=== PATIENT | female | born 1955 | race Caucasian/White ===

== ENCOUNTER 2019-12-19 16:50 | Outpatient (CLI) | payer MEDICARE, OTHER, SELFPAY ==
--- NOTE | 2019-12-19 | XRR_ITS ---
PROCEDURE INFORMATION: Exam: XR Thoracic Spine, 3 Views Exam date and time: 12/19/2019 5:02 PM Age: 64 years old Clinical indication: Pain in thoracic spine; Additional info: Back pain, thoracic region TECHNIQUE: Imaging protocol: XR of the thoracic spine, 3 views. Other technique: AP and lateral views and a swimmer's lateral view of the thoracic spine are submitted. COMPARISON: No relevant prior studies available. FINDINGS: Vertebrae: Diffuse osteopenia. Thoracic spine vertebral body marginal osteophytes are noted at mid-lower levels. Mild C3-C4 retrolisthesis, C4-C5, C5-C6 and C6-C7 anterolisthesis (swimmer's view). Soft tissues: Unremarkable. Intraperitoneal space: Medial left upper quadrant abdominal surgical clips. Vasculature: Moderate aortic arch atherosclerotic calcification without ectasia. XR/XR thoracic spine 3V* [id number] IMPRESSION: 1. Degenerative changes as above. 2. No acute thoracic spinal bony abnormality identified. 3. Left upper quadrant abdominal postsurgical changes.
--- NOTE | 2019-12-19 | XRR_ITS ---
PROCEDURE INFORMATION: Exam: XR Lumbosacral Spine, 2 or 3 Views Exam date and time: 12/19/2019 5:02 PM Age: 64 years old Clinical indication: Low back pain; Additional info: Chronic back pain TECHNIQUE: Imaging protocol: XR of the lumbosacral spine, 3 views. Other technique: AP, lateral and spot lateral views of the lumbar spine are submitted. COMPARISON: [place] [id number] 02/26/2019 7:47 PM FINDINGS: Vertebrae: Partial L1-L2 fusion redemonstrated. Lumbar spine vertebral body marginal osteophytes are noted at multiple levels. Bilateral L4-L5 and left L5-S1 lumbar facet primary osteoarthritis. Soft tissues: Unremarkable. Vasculature: Moderate aortic and bilateral iliac artery atherosclerotic calcifications without evidence of aneurysm. XR/XR lumbar spine 2-3V* [id number] IMPRESSION: 1. Degenerative changes as above. 2. No acute lumbar spinal bony abnormality identified.
== END 2019-12-19 16:51 | disposition home or self-care (01) ==
LOC: RAD 16:52
PROVIDERS: Family Provider Electrodiagnostic Medicine; PCP Electrodiagnostic Medicine; Visit Provider Electrodiagnostic Medicine
DX: M54.6 Pain in thoracic spine (principal); G89.29 Other chronic pain; M54.5 Low back pain
CPT/HCPCS: 72072; 72100

== ENCOUNTER → 2020-06-01 12:59 | Outpatient (BNVA) | payer MEDICARE, SELFPAY | PROVIDERS: Family Provider Electrodiagnostic Medicine; PCP Electrodiagnostic Medicine; Visit Provider Nurse Practitioner Family | DX: N39.0 Urinary tract infection, site not specified (principal); Z68.34 Body mass index [BMI] 34.0-34.9, adult; F17.211 Nicotine dependence, cigarettes, in remission | CPT/HCPCS: 81000; 87077; 87086; 87184 ==

== ENCOUNTER → 2020-10-01 14:05 | Outpatient (BNVA) | payer MEDICARE, BC, SELFPAY | PROVIDERS: Family Provider Electrodiagnostic Medicine; PCP Electrodiagnostic Medicine; Visit Provider Nurse Practitioner Family | DX: N39.0 Urinary tract infection, site not specified (principal); R39.15 Urgency of urination | CPT/HCPCS: 81003; 87086 ==

== ENCOUNTER 2021-01-28 09:43 | Outpatient (CLI) | payer MEDICARE, SELFPAY ==
--- NOTE | 2021-01-28 10:00 | MM_ITS ---
WS: [id number] BILATERAL SCREENING DIGITAL MAMMOGRAM WITH CAD HISTORY: SCREENING COMPARISON: 12/26/2011 and 03/22/2009 Bilateral CC and MLO views submitted. Computer aided detection analyzed. Breast composition: The breasts are almost entirely fatty. No suspicious masses, microcalcifications or architectural distortion. Benign calcifications in each breast. MM/[place] [id number] IMPRESSION: BI-RADS: 2-Benign FOLLOW UP: 1 Year Follow-up
== END 2021-01-28 09:44 | disposition home or self-care (01) ==
LOC: RADSHAW 09:52
PROVIDERS: PCP Electrodiagnostic Medicine; Visit Provider Electrodiagnostic Medicine
DX: Z12.31 Encounter for screening mammogram for malignant neoplasm of breast (principal)
CPT/HCPCS: 77067

== ENCOUNTER → 2021-06-19 11:14 | Outpatient (BNVA) | payer MEDICARE, SELFPAY | PROVIDERS: PCP Electrodiagnostic Medicine; Visit Provider Registered Nurse Neonatal Intensive Care | DX: R39.15 Urgency of urination (principal) | CPT/HCPCS: 81000 ==

== ENCOUNTER → 2021-07-30 13:32 | Outpatient (BNVA) | payer MEDICARE, SELFPAY | PROVIDERS: PCP Family Medicine; Visit Provider Internal Medicine Cardiovascular Disease | DX: I10 Essential (primary) hypertension (principal); E78.00 Pure hypercholesterolemia, unspecified; E03.9 Hypothyroidism, unspecified; Z87.891 Personal history of nicotine dependence | CPT/HCPCS: 93005; 99214 ==

== ENCOUNTER → 2021-08-07 15:29 | Outpatient (BNVA) | payer MEDICARE, SELFPAY | PROVIDERS: PCP Family Medicine; Visit Provider Family Medicine | DX: F41.9 Anxiety disorder, unspecified (principal); E78.5 Hyperlipidemia, unspecified; I10 Essential (primary) hypertension; E11.9 Type 2 diabetes mellitus without complications; E03.9 Hypothyroidism, unspecified | CPT/HCPCS: 80053; 80061; 83036; 84443 ==

== ENCOUNTER → 2021-08-12 11:23 | Outpatient (BNVA) | payer MEDICARE, SELFPAY | PROVIDERS: PCP Family Medicine; Visit Provider Family Medicine | DX: F41.9 Anxiety disorder, unspecified (principal); F31.81 Bipolar II disorder; E78.5 Hyperlipidemia, unspecified; I10 Essential (primary) hypertension; E11.9 Type 2 diabetes mellitus without complications; E03.9 Hypothyroidism, unspecified | CPT/HCPCS: 83036; 84443; 85025 ==

== ENCOUNTER → 2021-08-26 16:33 | Outpatient (BNVA) | payer MEDICARE, SELFPAY | PROVIDERS: PCP Family Medicine; Visit Provider Family Medicine | DX: E87.1 Hypo-osmolality and hyponatremia (principal) | CPT/HCPCS: 80048 ==

== ENCOUNTER → 2021-09-26 12:11 | Outpatient (BNVA) | payer MEDICARE, SELFPAY | PROVIDERS: PCP Family Medicine; Visit Provider Family Medicine | DX: E03.9 Hypothyroidism, unspecified (principal); E87.1 Hypo-osmolality and hyponatremia | CPT/HCPCS: 80048 ==

== ENCOUNTER → 2021-11-21 14:22 | Outpatient (BNVA) | payer MEDICARE, SELFPAY | PROVIDERS: PCP Family Medicine; Visit Provider Nurse Practitioner Family | DX: N30.90 Cystitis, unspecified without hematuria (principal) | CPT/HCPCS: 81000 ==

== ENCOUNTER → 2022-01-14 14:18 | Outpatient (BNVA) | payer MEDICARE, SELFPAY | PROVIDERS: PCP Family Medicine; Visit Provider Family Medicine | DX: E03.9 Hypothyroidism, unspecified (principal); E11.9 Type 2 diabetes mellitus without complications; E78.00 Pure hypercholesterolemia, unspecified; I10 Essential (primary) hypertension | CPT/HCPCS: 80053; 80061; 83036; 84443 ==

== ENCOUNTER 2022-05-10 10:58 | Emergency (ER) | payer MEDICARE, SELFPAY ==
[2022-05-10 11:03] VITALS: BP 204/78; PULSE 66; RESP 18; TEMP 36.6; O2SAT 98; BMI 36.7
--- NOTE | 2022-05-10 11:15 | ECG_ITS ---
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 Measurements Intervals [place] Rate: 57 P: 45 [place]: 178 QRS: 24 QRSD: 92 T: 27 QT: 444 QTc: 436 Interpretive Statements SINUS BRADYCARDIA Compared to ECG 02/18/2017 23:43:51 No significant changes Electronically Signed On 05-11-2022 19:37:16 CDT by Jean Claude Crow M.D. [email or web address].[email or web address] Distributionpascagoula hospitalMMRGlobalaccess hospital [email or web address]/store/[id number]
[2022-05-10 12:56] VITALS: BP 167/61; PULSE 60; RESP 21; O2SAT 99
[2022-05-10 13:00] LABS: Glucose Point of Care 109 mg/dL (70-110)
--- NOTE | 2022-05-10 13:00 | W.ED.ARRPALP ---
HPI - Arrhythmia/Palpitations General: Chief Complaint: Arrhythmia/Palpitations Stated Complaint: high B/P Time Seen by Provider: 05/10/22 11:51 History of Present Illness: Patient presents to the ER with complaints of high blood pressure systolic being above 200, she states she gets dizzy and falls and has frequent headaches and heart fluttering's. Patient says her PCP has been adjusting her medicine she is on atenolol and clonidine daily which she has been taking. Patient says her blood pressure has been over 189 all week long. MD complaint: palpitations Duration: constant and now resolved Severity: moderate Associated symptoms: Deny anxiety, nausea or vomiting Treatments prior to arrival: other (Patient to take her atenolol and 2 doses of clonidine today before arrival) Review of Systems General: Reports: 10 or more systems reviewed and unremarkable except in HPI and below Const: Denies: fever(s), chills or body aches Eyes: Denies: change in vision or blurry vision ENMT: Denies: throat pain or odynophagia Card: Reports: palpitations and irregular heart rhythm Resp: Denies: dyspnea, productive cough, non-productive cough or wheezing GI: Denies: abdominal pain, nausea, vomiting or diarrhea : Denies: flank pain, difficulty voiding or dysuria Musc: Denies: neck pain, back pain, extremity pain or extremity swelling Skin/Breast: Denies: rash, pruritus or erythema Neuro: Denies: headache(s), numbness in extremities or weakness in extremities Psych: Denies: anxiety, depression, mood swings or panic attacks Endo: Denies: polyuria, polydipsia or tired all the time Primo/Lymph: Denies: easy bruising, easy bleeding or petechiae All/Imm: Denies: urticaria, throat swelling or tongue swelling PFSH ED PFSH: Medical History Diabetes Hypercholesterolemia Hypertension Hypothyroidism Syncope Urgency of urination Surgical History H/O gastric bypass Family History Grandmother Cancer Hyperlipidemia Hypertension Mother Hypertension CAD (coronary artery disease) unknown age of onset Denies family history of Diabetes Clotting disorder Dementia Chronic kidney disease (CKD) Suicide Anesthesia complication Bleeding disorder Lung disease Stroke Social History Smoking and tobacco status: former smoker Alcohol intake: never Marital status: Physical Exam Const: COMMON NORMALS: no acute distress, average body habitus, patient oriented x3, no limitations, healthy appearing, alert and well nourished HENMT: COMMON NORMALS: normocephalic, atraumatic and hearing grossly normal bilaterally HEAD & SCALP: normocephalic and atraumatic Eye: COMMON NORMALS: Equal, round and reactive pupils present, EOMs intact bilaterally and conjunctivae normal CONJUNCTIVA: Yes conjunctivae normal PUPIL: Yes Equal, round and reactive pupils present Neck/C-Spine: COMMON NORMALS: full ROM, no lymphadenopathy, supple, no meningeal signs, no JVD and Thyroid normal THYROID: Thyroid normal Chest: COMMONS NORMALS: normal inspection of the chest Resp: COMMON NORMALS: normal respiratory effort, No retractions, No use of accessory muscles and clear to auscultation bilaterally AUSCULTATION: clear to auscultation bilaterally Cardio: COMMON NORMALS: no JVD, regular rate, regular rhythm, S1 normal heart sound present, S2 normal heart sound present and No gallops present (Cardio) RATE: regular rate RHYTHM: regular rhythm HEART SOUNDS: S1 normal heart sound present and S2 normal heart sound present GI: COMMON NORMALS: Normal to inspection, nondistended, normoactive bowel sounds present, Soft to palpation, non-tender and No hepatosplenomegaly present PALPATION: Yes Soft to palpation and Yes No hepatosplenomegaly present : COMMON NORMALS: Yes no CVA tenderness BLADDER/KIDNEY EXAM: Yes no CVA tenderness Back/Pelvis: COMMON NORMALS: no CVA tenderness Neuro: COMMON NORMALS: patient oriented x3, CN's II-XII intact bilaterally, no focal motor deficits and no sensory deficits noted SENSORIUM/ORIENTATION: Yes alert MENINGEAL SIGNS: Yes no meningeal signs Psych: COMMON NORMALS: mental status grossly normal, Normal thought process present, cooperative, normal affect, speech normal, activity/motor behavior normal, denies hallucinations, denies homicidal ideation and denies suicidal ideation SPEECH: Yes normal speech THOUGHT PROCESS: Normal thought process present Course Vital Signs: Vital signs: Vital Signs Temperature 97.9 F 05/10/22 11:03 Pulse Rate 50 L 05/10/22 16:15 Respiratory Rate 21 H 05/10/22 12:56 Blood Pressure 173/73 05/10/22 16:15 Pulse Oximetry 97 05/10/22 16:15 Oxygen Delivery Me thod 05/10/22 12:56 MDM - Arrhythmia/Palpitations Medical Decision Making Patient arrived with complaints of palpitations and uncontrolled high blood pressure. Patient states her primary care doctor is adjusting her medicine for about the last month. Patient states she has had intermittent dizziness off-and-on for the last month also. Patient blood pressure was up and down during her ER stay. His 3 and physical was performed as well as lab review which showed no significant abnormalities. Patient was told to increase her clonidine to 2 tablets twice a day keep a blood pressure log and follow-up with her PCP in approximately 1 week for further management. Lab Data 05/10/22 12:56 05/10/22 12:56 Laboratory Results WBC 9.1 10^3/uL (4.0-10.0) 05/10/22 12:56 RBC 4.40 10^6/uL (4.1-5.3) 05/10/22 12:56 Hgb 11.9 g/dL (11.5-15.3) 05/10/22 12:56 Hct 37.5 % (37.0-47.0) 05/10/22 12:56 MCV 85.2 fl (81-99) 05/10/22 12:56 MCH 27.0 pg (28.0-34.0) L 05/10/22 12:56 MCHC 31.7 g/dL (30.0-36.0) 05/10/22 12:56 RDW 12.8 % (12.1-15.1) 05/10/22 12:56 Plt Count 357 10^3/cmm (130-400) 05/10/22 12:56 MPV 9.5 fL (7.4-10.4) 05/10/22 12:56 Neut % (Auto) 61.1 % 05/10/22 12:56 Lymph % (Auto) 27.7 % 05/10/22 12:56 [place] % (Auto) 9.5 % 05/10/22 12:56 Eos % (Auto) 1.2 % 05/10/22 12:56 Baso % (Auto) 0.3 % 05/10/22 12:56 Neut # (Auto) 5.56 10^3/uL (1.8-7.7) 05/10/22 12:56 Lymph # (Auto) 2.5 10^3/uL (0.8-4.8) 05/10/22 12:56 [place] # (Auto) 0.9 10^3/uL (0.2-0.9) 05/10/22 12:56 Eos # (Auto) 0.1 10^3/uL (0.0-0.8) 05/10/22 12:56 Baso # (Auto) 0.0 10^3/uL (0.0-0.1) 05/10/22 12:56 Nucleated RBC % (auto) 0 % 05/10/22 12:56 Nucleated RBCs # 0.0 /100WBC 05/10/22 12:56 Sodium 135 mmol/L (136-145) L 05/10/22 12:56 Potassium 4.4 mmol/L (3.5-5.1) 05/10/22 12:56 Chloride 97 mmol/L (98-107) L 05/10/22 12:56 Carbon Dioxide 26 mmol/L (22-29) 05/10/22 12:56 Anion Gap 16.4 (5-19) 05/10/22 12:56 BUN 16 mg/dL (8-23) 05/10/22 12:56 Creatinine 0.8 mg/dL (0.5-0.9) 05/10/22 12:56 GFR Calculation 72.0 mL/min (90-130) L 05/10/22 12:56 Glucose 101 mg/dL (65-115) 05/10/22 12:56 POC Glucose 109 mg/dL (70-110) 05/10/22 12:55 Calculated Osmolality 281 mOsm/kg (285-295) L 05/10/22 12:56 Calcium 9.5 mg/dL (8.5-10.5) 05/10/22 12:56 Magnesium 1.8 mg/dL (1.7-2.3) 05/10/22 12:56 Total Bilirubin 0.3 mg/dL (0.15-1.2) 05/10/22 12:56 AST 15 U/L (0-32) 05/10/22 12:56 ALT 11 U/L (0-33) 05/10/22 12:56 Alkaline Phosphatase 57 U/L (35-105) 05/10/22 12:56 Troponin T Baseline 6 ng/L (0-10) 05/10/22 12:56 Troponin T 120 Minute 6.00 ng/L (0-10) 05/10/22 15:07 Delta Troponin T 0 ABS# (0-10) 05/10/22 15:07 Total Protein 7.6 g/dL (6.6-8.7) 05/10/22 12:56 Albumin 4.1 g/dL (3.5-5.2) 05/10/22 12:56 Globulin 3.5 g/dL (1.3-4.6) 05/10/22 12:56 Urine Color Light yellow (Yellow) 05/10/22 14:00 Urine Appearance Clear (CLEAR) 05/10/22 14:00 Urine pH 7 (5-7) 05/10/22 14:00 Ur Specific [place] 1.010 (1.005-1.030) 05/10/22 14:00 Urine Protein Neg (Negative) 05/10/22 14:00 Urine Glucose (UA) Norm (Normal) 05/10/22 14:00 Urine Ketones Negative (Negative) 05/10/22 14:00 Urine Blood Neg (Negative) 05/10/22 14:00 Urine Nitrate Negative (Negative) 05/10/22 14:00 Urine Bilirubin Neg (Negative) 05/10/22 14:00 Urine Urobilinogen Norm mg/dL (Negative) 05/10/22 14:00 Ur Leukocyte Esterase Negative (Negative) 05/10/22 14:00 Urine Opiates Screen Negative ng/mL (Negative) 05/10/22 14:00 Ur Barbiturates Screen Negative ng/mL (Negative) 05/10/22 14:00 Ur Phencyclidine Scrn Negative ng/mL (Negative) 05/10/22 14:00 Ur Amphetamines Screen Negative ng/mL (Negative) 05/10/22 14:00 U Benzodiazepines Scrn Positive ng/mL (Negative) H 05/10/22 14:00 Urine Cocaine Screen Negative ng/mL (Negative) 05/10/22 14:00 U Marijuana (THC) Screen Positive ng/mL (Negative) H 05/10/22 14:00 EKG Data EKG 1: I personally reviewed and interpreted this EKG as follows: EKG interpretation date: 05/10/22 EKG interpretation time: 13:05 Interpretation: EKG performed at 05/10/2022 at 1115 showed sinus bradycardia with a rate of 57. EKG of 02/18/2017 VT interval 178 QT of [address]-T wave changes. EKG 2: I personally reviewed and interpreted this EKG as follows: EKG interpretation date: 05/10/22 EKG interpretation time: 15:54 Prior EKG tracings: available for review Interpretation: EKG performed on May 10, 2022 at 1545 showed sinus bradycardia at a ventricular rate of 51 bpm VT interval of 183 a QRS duration of 89 QT interval of 456. No ST or T wave changes noted Discharge Plan Discharge Patient Disposition: Home Clinical Impression: Heart palpitations Hypertension Qualifiers: Hypertension type: unspecified Qualified Code(s): I10 - Essential (primary) hypertension Condition: Stable Prescriptions: No Action quetiapine [Seroquel] 100 mg tablet 100 mg PO .HS calcium carbonate [Calcium 600] 600 mg calcium (1,500 mg) tablet 600 mg PO DAILY simvastatin 20 mg tablet 20 mg PO DAILY multivitamin Tablet 1 tab PO DAILY omega 7-mzw-npn-fish oil [Fish Oil] 1,000 mg (120 mg-180 mg) capsule 1 cap PO DAILY nebivolol 20 mg tablet 20 mg PO DAILY Qty: 60 11RF lisinopril 20 mg tablet 30 mg PO BID Qty: 270 3RF cetirizine [Zyrtec] 10 mg tablet 10 mg PO DAILY PRN (Reason: allergy symptoms) Qty: 30 11RF fluticasone propionate 50 mcg/actuation spray,suspension 2 spray intranasal DAILY Qty: 16 11RF levothyroxine 25 mcg tablet 25 mcg PO DAILY Qty: 90 3RF alprazolam 1 mg tablet 1 mg PO TID Qty: 90 3RF clonidine HCl 0.1 mg tablet 0.1 mg PO BID PRN (Reason: hypertensive emergency) Qty: 60 11RF Discharge Orders: Discharge ED (Routine); Ordered 05/10/22 Ordered By: Wyatt Ragsdale Referrals: Obey Rose MD [Primary Care Provider] - 1 week Discharge Activity: Resume usual activity Activity Restrictions/Additional Instructions: Keep blood pressure log, double up on your clonidine take 2 tablets of the 0.1 mg twice a day as needed for blood pressure follow-up with your PCP in approximately 1 week Coding Level of Care Code ED 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
--- NOTE | 2022-05-10 13:00 | PC.NURSE ---
pt c/o dizziness, headache, and severe thirst. denies hx diabetes. blood glucose checked at bedside, 109.
--- NOTE | 2022-05-10 13:07 | ECG_ITS ---
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 Measurements Intervals [place] Rate: 52 P: 54 AR: 180 QRS: 57 QRSD: 90 T: 45 QT: 469 QTc: 438 Interpretive Statements SINUS BRADYCARDIA Compared to ECG 05/10/2022 11:15:32 No significant changes Electronically Signed On 05-11-2022 19:37:47 CDT by Jean Claude Crow M.D. [email or web address].[email or web address] comprehensive health centerDroneDeploymercy health st. rita's medical [email or web address].com/store/[id number]
[2022-05-10 13:20] LABS: Basophils % 0.3 %; Eosinophils # 0.1 10^3/uL (0.0-0.8); Eosinophils % 1.2 %; Hematocrit 37.5 % (37.0-47.0); Hemoglobin 11.9 g/dL (11.5-15.3); Lymphocytes # 2.5 10^3/uL (0.8-4.8); Lymphocytes % 27.7 %; Mean Corpuscular HGB Conc 31.7 g/dL (30.0-36.0); Mean Corpuscular Volume 85.2 fl (81-99); Mean Platelet Volume 9.5 fL (7.4-10.4); Monocytes # 0.9 10^3/uL (0.2-0.9); Monocytes % 9.5 %; Neutrophils # 5.56 10^3/uL (1.8-7.7); Neutrophils % 61.1 %; Nucleated Red Blood Cells % 0 %; Platelet Count 357 10^3/cmm (130-400); Red Cell Distribution Width 12.8 % (12.1-15.1); White Blood Count 9.1 10^3/uL (4.0-10.0)
[2022-05-10 14:11] LABS: Alanine Aminotransferase 11 U/L (0-33); Albumin Level 4.1 g/dL (3.5-5.2); Alkaline Phosphatase 57 U/L (35-105); Anion Gap 16.4 (5-19); Aspartate Amino Transferase 15 U/L (0-32); Blood Urea Nitrogen 16 mg/dL (8-23); Calcium 9.5 mg/dL (8.5-10.5); Carbon Dioxide 26 mmol/L (22-29); Chloride 97 mmol/L (98-107); Globulin 3.5 g/dL (1.3-4.6); Glucose 101 mg/dL (65-115); Magnesium 1.8 mg/dL (1.7-2.3); Osmolality Calculated 281 mOsm/kg (285-295); Potassium 4.4 mmol/L (3.5-5.1); Sodium 135 mmol/L (136-145); Total Bilirubin 0.3 mg/dL (0.15-1.2); Total Protein 7.6 g/dL (6.6-8.7)
[2022-05-10 14:12] LABS: Troponin(5th) Baseline 6 ng/L (0-10)
[2022-05-10 14:29] LABS: Add Urine Microscopic? NO; Charge for UA Resulting for Rev
[2022-05-10 14:37] LABS: Urine Color Light yellow (Yellow)
[2022-05-10 14:38] LABS: Bilirubin Urine Neg (Negative); Blood Urine Neg (Negative); Glucose Urine UA Norm (Normal); Ketones Urine Negative (Negative); Leukocyte Esterase Urine Negative (Negative); Nitrate Urine Negative (Negative); Protein Urine Neg (Negative); Urine Appearance Clear (CLEAR); Urobilinogen Urine Norm (Negative); pH Urine 7 (5-7)
[2022-05-10 14:45] VITALS: BP 168/63; PULSE 52; O2SAT 97
[2022-05-10 14:45] LABS: Amphetamines Screen Urine Negative (Negative); Barbiturates Screen Urine Negative (Negative); Benzodiazepines Screen Urine Positive (Negative); Cocaine Screen Urine Negative (Negative); Opiate Screen Urine Negative (Negative); PCP Screen Urine Negative (Negative); THC Screen Urine Positive (Negative)
[2022-05-10 15:06] VITALS: BP 170/68
--- NOTE | 2022-05-10 15:45 | ECG_ITS ---
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 Measurements Intervals [place] Rate: 51 P: 32 [place]: 183 QRS: 24 QRSD: 89 T: 25 QT: 456 QTc: 424 Interpretive Statements SINUS BRADYCARDIA Compared to ECG 05/10/2022 13:21:22 No significant changes Electronically Signed On 05-11-2022 23:19:23 CDT by Jean Claude Crow M.D. [email or web address] [employer].Art Loftmethodist olive branch hospitalStayfilmnewark hospitalFundrise/store/[id number]
[2022-05-10 16:14] LABS: Troponin 5 2HR Delta 0 ABS# (0-10)
[2022-05-10 16:15] VITALS: BP 173/73; PULSE 50; O2SAT 97
== END 2022-05-10 16:17 | disposition home or self-care (01) ==
PROVIDERS: Emergency Provider Emergency Medicine; PCP Family Medicine
DX: R00.2 Palpitations (principal); I10 Essential (primary) hypertension; E11.9 Type 2 diabetes mellitus without complications; E03.9 Hypothyroidism, unspecified; E78.00 Pure hypercholesterolemia, unspecified; Z87.891 Personal history of nicotine dependence
CPT/HCPCS: 36415; 36416; 80053; 80306; 81003; 82962; 83735; 84484; 85025; 93005; 99284

== ENCOUNTER → 2022-09-08 15:28 | Outpatient (BNVA) | payer MEDICARE, SELFPAY | PROVIDERS: PCP Family Medicine; Visit Provider Dermatology | DX: L82.1 Other seborrheic keratosis (principal) | CPT/HCPCS: 17000; 17003; 99213 ==

== ENCOUNTER → 2022-10-07 15:17 | Outpatient (BNVA) | payer MEDICARE, SELFPAY | PROVIDERS: PCP Family Medicine; Visit Provider Internal Medicine Cardiovascular Disease | DX: I10 Essential (primary) hypertension (principal); R06.02 Shortness of breath; E03.9 Hypothyroidism, unspecified; E78.00 Pure hypercholesterolemia, unspecified; I49.1 Atrial premature depolarization; R01.1 Cardiac murmur, unspecified; Z87.891 Personal history of nicotine dependence | CPT/HCPCS: 36415; 80048; 83880; 99214 ==

== ENCOUNTER 2022-10-17 07:56 | Outpatient (CLI) | payer MEDICARE, SELFPAY ==
--- NOTE | 2022-10-17 08:30 | USCV_ITS ---
Aj Trish Age: 66 Gender: F : 1955 Exam Date: 10/17/2022 08:16 Ordering Phys: Jean Claude Crow MD ([email or web address]) Technologist: Rodriguez Brian [place] [facility] [place]: HTN Aortic Velocity @ SMA (cm/s) 100 RIGHT KIDNEY LEFT KIDNEY Velocity (cm/s) Velocity (cm/s) Sys/Ledbetter Sys/Ledbetter Resistive Index Resistive Index 72.9 / 8.5 0.88 Proximal Renal Artery 31.7 / 11.8 0.63 202.4 / 31.9 0.84 Mid Renal Artery 98.5 / 21.4 0.78 138.6 / 13.9 0.90 Distal Renal Artery 67.1 / 17.3 0.74 61.1 / 18.8 0.69 Hilar 39.4 / 8.5 0.78 51.7 / 8.7 0.83 Upper Pole 21.7 / 5.3 0.76 42.4 / 11.8 0.72 Mid Pole 26.7 / 7.1 0.73 53.7 / 11.3 0.79 Lower Pole 15.6 / 4.9 0.68 2.00 Renal Aortic Ratio 0.98 Accleration Index (cm/sec2) 1321.0 Hilar 668.00 0 2018.0 Upper Pole 179.00 0 538.00 Mid Pole 400.00 766.00 Lower Pole 274.00 121.5 Kidney Length (mm) 102.8 CONCLUSIONS No hydronephrosis in either kidney Increased PSV mid right renal artery suspicious for mild stenosis at the lower end of the range. Right RAR 2.00 concordant. No other evidence of Renal artery stenosis bilaterally Anuj Das MD (Electronically Signed) Final Date: 17 October 2022 12:50 S
--- NOTE | 2022-10-17 09:15 | USCV_ITS ---
Trish Rocha Age: 66 Gender: F : 1955 Exam Date: 10/17/2022 08:48 Ordering Phys: Jean Claude Crow MD ([email or web address]) Technologist: Rodriguez Brian Exam Location: [facility] – [place] Indication: heart murmur BP: 136 / 66 HR: 67 Rhythm: Sinus Technical Quality: Adequate MEASUREMENTS (Male / Female) Normal Values 2D ECHO LVOT Diameter 2.0 cm LV Ejection Fraction MOD 2C 64.8 % LV Ejection Fraction 2C AL 64.1 % LA Diameter 3.6 cm LA Width 3.0 cm LA Height 5.0 cm RA Width 3.1 cm RA Height 4.2 cm Aorta at Sinotubular Diameter 1.9 cm IVC Diameter 1.4 cm M-MODE Aortic Annulus Diameter 2.4 cm LA Ao Ratio MM 1.6 MV E Point Septal Separation 0.4 cm DOPPLER AV Peak Velocity 180.0 cm/s LVOT Peak Velocity 118.0 cm/s AV Area Cont Eq vti 1.9 cm squared AV Area Cont Eq pk 2.1 cm squared MV Peak Velocity 160.0 cm/s MV Area PHT 5.0 cm squared Mitral E to A Ratio 1.2 MV E' Velocity 66.5 cm/s Mitral E to MV E' Ratio 14.9 Mitral E to LV E' Lateral Ratio 16.0 Mitral E to LV E' Septal Ratio 13.9 TR Peak Velocity 325.4 cm/s TR Peak Gradient 42.4 mmHg TR Mean Velocity 255.6 cm/s TR Mean Gradient 29.5 mmHg TR Velocity Time Integral 95.3 cm Right Atrial Pressure 3.0 mmHg Pulmonary Artery Systolic Pressu 45.4 mmHg PV Peak Velocity 103.0 cm/s RV Acceleration Time 0.1 s RV Ejection Time 0.3 s RV AcT/ET 0.4 FINDINGS Left Ventricle Normal left ventricular size and systolic function, EF 69 %. No regional wall motion abnormalities. Grade III/IV diastolic dysfunction (restrictive filling pattern), severely elevated filling pressures. Right Ventricle The right ventricle is normal in size and function. Right Atrium The right atrium is normal in size. Left Atrium Mildly increased left atrial size. Mitral Valve Thickened mitral valve. Moderate mitral annular calcification. Mild-moderate mitral valve regurgitation. Aortic Valve Thickened aortic valve. Tricuspid Valve Mild tricuspid valve regurgitation. Estimated pulmonary artery peak systolic pressure 45 mmHg Pulmonic Valve Pulmonic valve not well visualized. Pericardium Normal pericardium without effusion. Aorta Normal ascending aorta dimension. IVC The inferior vena cava appears normal. CONCLUSIONS Normal left ventricular size and systolic function, EF 69 %. No regional wall motion abnormalities. Grade III/IV diastolic dysfunction (restrictive filling pattern), severely elevated filling pressures. Thickened mitral valve. Moderate mitral annular calcification. Mild-moderate mitral valve regurgitation. Mildly increased left atrial size. Thickened aortic valve. Features of aortic valve sclerosis Mild tricuspid valve regurgitation. Estimated pulmonary artery peak systolic pressure 45 mmHg. There is no pericardial effusion. There are no intracardiac masses. Compared to the study from 02/19/2017, there may not be a significant change Dr Jean Claude Crow MD [facility] (Electronically Signed) Final Date: 21 October 2022 08:33 S
== END 2022-10-17 07:57 | disposition home or self-care (01) ==
PROVIDERS: PCP Family Medicine; Visit Provider Internal Medicine Cardiovascular Disease
DX: I10 Essential (primary) hypertension (principal); R01.1 Cardiac murmur, unspecified; I05.9 Rheumatic mitral valve disease, unspecified; I35.8 Other nonrheumatic aortic valve disorders; I07.1 Rheumatic tricuspid insufficiency; R93.421 Abnormal radiologic findings on diagnostic imaging of right kidney
CPT/HCPCS: 93306; 93975

== ENCOUNTER → 2022-10-27 13:01 | Outpatient (BNVA) | payer MEDICARE, SELFPAY | PROVIDERS: PCP Family Medicine; Visit Provider Family Medicine | DX: R30.0 Dysuria (principal); N39.0 Urinary tract infection, site not specified | CPT/HCPCS: 81000; 87086 ==

== ENCOUNTER 2022-11-05 09:21 | Outpatient (CLI) | payer MEDICARE, SELFPAY ==
[2022-11-05 09:40] VITALS: BMI 33.6
--- NOTE | 2022-11-05 09:41 | ECG_ITS ---
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 Interpretive Statements NAME OF STUDY: LEXISCAN SESTAMIBI STRESS TEST INDICATION: Sob PROCEDURE: At the baseline, the EKG revealed normal sinus rhythm with a normal ST Ts. The baseline heart was bpm with a blood pressue of mm of Hg Lexiscan was infused over a period of 20 seconds. A total of 0.4 milligrams of Lexiscan was infused. The stress phase was continued for a total of 5 minutes. Heart rate at the end of the stress phase was 93 bpm with a blood pressure 121/41 mm of Hg. The EKG at the peak infusion revealed no significant changes. Sestamibi was injected 20 seconds after the Lexiscan infusion. Heart rate at the end of the recovery phase was 89 bpm with a blood pressure of 128/40 mm of Hg. CONCLUSION: 1. No significant EKG changes with the LexiScan infusion 2. No LexiScan induced chest pain or cardiac arrhythmia 3. Normal blood pressure and heart rate response to Lexiscan infusion. 4. Sestamibi/sestamibi perfusion scan pending; see separate report. Electronically Signed On 11-07-2022 10:11:51 CDT by Jean Claude Crow M.D. [email or web address]ishing.ND Acquisitions/store/[id number]
--- NOTE | 2022-11-05 09:42 | NMCV_ITS ---
NM hieu perf SPECT r/s* [id number] Trish Rocha Age: 66 Gender: F : 1955 Exam Date: 11/05/2022 10:40 Ordering Phys: Jean Claude Crow MD ([email or web address]) Technologist: NAINA Abrams Exam Location: [facility] Indications: CHEST PAIN STRESS TEST Please see separate stress test [facility] in [facility] for full findings IMAGE PROTOCOL Rest/Stress 1 Lexiscan Day Radiopharmaceutical Dose (mCi) Administration Site Administered by Rest: Tc-99m 10.8 IV NAINA Lozada Sestamibi Stress:Tc-99m 32.5 IV NAINA Lozada Sestamibi Rest: 05-Nov-2022 60 Discovery 630 Stress: 05-Nov-2022 30 Discovery 630 0.4mg Lexiscan. Images obtained in supine and prone position. SPECT RESULTS Technical Quality: Excellent Raw Data Analysis: Normal Image Corrections: No attenuation or motion correction applied Summed Stress Score: 4 Summed Rest Score: 1 Summed Difference Score: 3 PERFUSION FINDINGS A small area of slightly decreased tracer uptake was noted in the mid inferolateral, apical lateral and apical inferior wall region. Some reversibility was noted in these regions FUNCTIONAL RESULTS (calculated via Gated SPECT) Stress Image LV EF (%): 90 Stress EDV (mL):81 TID: 1.05 Stress ESV (mL):8 FUNCTIONAL FINDINGS: Segmental wall motion analysis revealing no gross wall motion abnormalities IMPRESSIONS Myocardial perfusion imaging revealing a small area of minimal to moderately decreased tracer uptake in the mid inferolateral, apical lateral and apical inferior regions with some reversibility suggesting myocardial scarring in the distribution of the right coronary artery and circumflex artery with a very small areas of malcolm-infarction ischemia. 2. Normal LV ejection fraction of 90% 3. LV wall motion analysis revealing no gross wall motion abnormalities. 4. Normal LV wall No similar previous studies are available for comparison Dr Jean Claude Crow MD [facility] (Electronically Signed) Final Date: 05 November 2022 13:26 S
[2022-11-05] MEDS: regadenoson 0.4 Mg/5 ml Syringe IVP (11:17)
[2022-11-05 11:34] VITALS: BP 124/48; PULSE 89
== END 2022-11-05 09:22 | disposition home or self-care (01) ==
LOC: CDL 09:21
PROVIDERS: PCP Family Medicine; Visit Provider Internal Medicine Cardiovascular Disease
DX: R06.02 Shortness of breath (principal)
CPT/HCPCS: 36415; 78452; 93017; 96374; A9500; J2785

== ENCOUNTER → 2022-11-23 17:20 | Outpatient (BNVA) | payer MEDICARE, SELFPAY | PROVIDERS: PCP Family Medicine; Visit Provider Emergency Medicine | DX: R39.9 Unspecified symptoms and signs involving the genitourinary system (principal); N39.0 Urinary tract infection, site not specified | CPT/HCPCS: 81000 ==

== ENCOUNTER 2022-11-25 16:00 | Emergency (ER) | payer MEDICARE, SELFPAY ==
[2022-11-25] VITALS (13 sets, daily range): BP systolic 91–128; BP diastolic 35–70; PULSE 63–90; RESP 16–22; TEMP 37; O2SAT 93–97; BMI 32.1
--- NOTE | 2022-11-25 16:03 | ECG_ITS ---
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 Measurements Intervals [place] Rate: 68 P: 60 [place]: 173 QRS: 21 QRSD: 89 T: 16 QT: 419 QTc: 446 Interpretive Statements SINUS RHYTHM Compared to ECG 05/10/2022 15:45:16 Sinus bradycardia no longer present Electronically Signed On 11-25-2022 21:12:06 CDT by Jean Claude Crow M.D. [email or web address].Grey Orange Roboticsummc grenadaPathfireohiohealth riverside methodist hospitalGLOBALBASED TECHNOLOGIES/store/OM/[id number]
--- NOTE | 2022-11-25 16:37 | XRR_ITS ---
PROCEDURE INFORMATION: Exam: XR Chest Exam date and time: 11/25/2022 4:57 PM Age: 67 years old Clinical indication: Shortness of breath; Additional info: SOB TECHNIQUE: Imaging protocol: Radiologic exam of the chest. Views: 1 view. COMPARISON: CR XR chest 1V [id number] 02/18/2017 8:49 PM FINDINGS: Lungs: Unremarkable. No consolidation. Pleural spaces: Unremarkable. No pleural effusion. No pneumothorax. Heart/Mediastinum: Unremarkable. No cardiomegaly. Bones/joints: Unremarkable. XR/XR chest 1V portable [id number] IMPRESSION: No acute findings.
[2022-11-25 16:51] LABS: Basophils % 0.1 %; Eosinophils # 0.1 10^3/uL (0.0-0.8); Eosinophils % 0.6 %; Hematocrit 28.3 % (36-47); Lymphocytes # 1.4 10^3/uL (0.8-4.8); Lymphocytes % 17.3 %; Mean Corpuscular HGB Conc 33.2 g/dL (30-55); Mean Corpuscular Hemoglobin 28.2 pg (27-33); Monocytes # 0.9 10^3/uL (0.2-0.9); Monocytes % 11.3 %; Neutrophils # 5.81 10^3/uL (1.8-7.7); Neutrophils % 70.5 %; Nucleated Red Blood Cells % 0 %; Platelet Count 363 10^3/cmm (157-399); Red Blood Count 3.33 10^6/uL (3.85-5.65); Red Cell Distribution Width 13.5 % (12.1-15.1); White Blood Count 8.25 10^3/uL (3.29-11.43)
[2022-11-25 17:01] LABS: Bilirubin Urine Neg (Negative); Blood Urine 2+ (Negative); Glucose Urine UA Norm (Normal); Ketones Urine Negative (Negative); Nitrate Urine Positive (Negative); Protein Urine 1+ (Negative); Specific Gravity, Urine 1.025 (1.005-1.030); Urine Appearance Clear (CLEAR); Urine Color Yellow (Yellow); Urobilinogen Urine Norm (Negative); pH Urine 6.5 (5-7)
[2022-11-25 17:02] LABS: Add Urine Microscopic? YES; Leukocyte Esterase Urine Trace (Negative)
[2022-11-25 17:19] LABS: Blood Urea Nitrogen 17 mg/dL (8-23); Calcium 9.1 mg/dL (8.5-10.5); Carbon Dioxide 22 mmol/L (22-29); Chloride 88 mmol/L (98-107); Glomerular Filtration Rate 37.6 mL/min (90-130); Glucose 100 mg/dL (65-115); NT Pro B Type Natriuretic Pept 419 pg/mL (0-125); Osmolality Calculated 258 mOsm/kg (285-295); Sodium 123 mmol/L (136-145)
[2022-11-25 17:22] LABS: RBC Urine 0-4 /hpf (0-2); Squamous Epithelial Cell Urine 0-4 /hpf (0-5); WBC Urine 0-4 /hpf (0-5)
[2022-11-25 17:23] LABS: Add Urine Culture? Yes; Oval Fat Bodies Urine 1+ /hpf
--- NOTE | 2022-11-25 17:55 | CTR_ITS ---
PROCEDURE INFORMATION: Exam: CT Abdomen And Pelvis Without Contrast Exam date and time: 11/25/2022 6:38 PM Age: 67 years old Clinical indication: Abdominal pain; Generalized TECHNIQUE: Imaging protocol: Computed tomography of the abdomen and pelvis without contrast. Radiation optimization: All CT scans at this facility use at least one of these dose optimization techniques: automated exposure control; mA and/or kV adjustment per patient size (includes targeted exams where dose is matched to clinical indication); or iterative reconstruction. REPORTING DATA: Count of CT and Cardiac NM exams in prior 12 months: This patient has received [address] and 0 known cardiac nuclear medicine studies in the 12 months prior to the current study. COMPARISON: CT angio chest w abd pel w con 02/18/2017 10:44 PM RADIATION DOSE METRICS: Total DLP (mGy-cm): 757 FINDINGS: Liver: Normal. No mass. Gallbladder and bile ducts: The gallbladder has a hydropic appearance. There are no gallstones appreciated. Pancreas: Normal. No ductal dilation. Spleen: Splenic granulomatous disease. Adrenal glands: Normal. No mass. Kidneys and ureters: Normal. No hydronephrosis. Stomach and bowel: Postop gastric surgical change. Small sliding-type hiatal hernia. Appendix: No evidence of appendicitis. Intraperitoneal space: Unremarkable. No free air. No significant fluid collection. Vasculature: Atherosclerotic change of the abdominal vasculature. Lymph nodes: Unremarkable. No enlarged lymph nodes. Urinary bladder: Unremarkable as visualized. Reproductive: Unremarkable as visualized. Bones/joints: Degenerative change of the lumbar spine. Soft tissues: Unremarkable. CT/CT abdomen pelvis wo con [id number] IMPRESSION: 1. Postop gastric bypass surgical change. 2. Hydropic gallbladder. No gallstones are appreciated. 3. Splenic granulomatous disease.
[2022-11-25] MEDS: ondansetron 2 mg/ML SDV 2 mL 4 MG IVP ×2 (18:06→18:52)
[2022-11-25] MEDS: HYDROmorphone 1 mg/mL INJ 1 mL 0.5 MG IVP (18:07)
--- NOTE | 2022-11-25 18:12 | CTR_ITS ---
PROCEDURE INFORMATION: Exam: CT Head Without Contrast Exam date and time: 11/25/2022 6:34 PM Age: 67 years old Clinical indication: Pain; Headache TECHNIQUE: Imaging protocol: Computed tomography of the head without contrast. Radiation optimization: All CT scans at this facility use at least one of these dose optimization techniques: automated exposure control; mA and/or kV adjustment per patient size (includes targeted exams where dose is matched to clinical indication); or iterative reconstruction. REPORTING DATA: Count of CT and Cardiac NM exams in prior 12 months: This patient has received [address] and 0 known cardiac nuclear medicine studies in the 12 months prior to the current study. COMPARISON: CT head wo con* [id number] 02/26/2019 7:43 PM RADIATION DOSE METRICS: Total DLP (mGy-cm): 1153 FINDINGS: Brain: Normal. No hemorrhage. Unremarkable white matter. No mass effect. Cerebral ventricles: No ventriculomegaly. Paranasal sinuses: Visualized sinuses are unremarkable. No fluid levels. Mastoid air cells: Visualized mastoid air cells are well aerated. Bones/joints: Unremarkable. No acute fracture. Soft tissues: Unremarkable. CT/CT head wo con* [id number] IMPRESSION: No acute intracranial abnormality.
[2022-11-25] MEDS: HYDROmorphone 1 mg/mL INJ 1 mL IVP (18:52)
[2022-11-25] MEDS: phenazopyridine 100 mg Tablet 200 MG PO (20:06)
--- NOTE | 2022-11-26 11:19 | W.ED.FEMALGU ---
HPI - Female Genitourinary General: Chief complaint: Shortness of Breath/Dyspnea Stated complaint: Dysuria, Urgency, SOB, DUKES Time Seen by Provider: 11/25/22 16:24 History of Present Illness: This patient is a 67-year-old white female who presents to the emergency department with multiple complaints. Patient states that she was recently diagnosed with a urinary tract infection. She was placed on Bactrim. She has been taking that for the past 3 days. She continues to have suprapubic pain and feels the frequent need to urinate. She continues to have dysuria. She states she has had decreased urine output despite large amount of water intake. She also complains of feeling short of breath when she is lying down and also complains of a headache. She has not had a fever. Associated symptoms: Reports headache(s) Review of Systems General: Reports: 10 or more systems reviewed and unremarkable except in HPI and below Resp: Reports: dyspnea : Reports: difficulty voiding, dysuria and urinary frequency Neuro: Reports: headache(s) PFSH ED PFSH: Medical History Diabetes Hypercholesterolemia Hypertension Hypothyroidism Syncope Urgency of urination Surgical History H/O gastric bypass Family History Grandmother Cancer Hyperlipidemia Hypertension Mother Hypertension CAD (coronary artery disease) unknown age of onset Denies family history of Diabetes Clotting disorder Dementia Chronic kidney disease (CKD) Suicide Anesthesia complication Bleeding disorder Lung disease Stroke Social History Smoking and tobacco status: former smoker Alcohol intake: never Substance/Drug Use: never Marital status: Physical Exam Const: COMMON NORMALS: patient oriented x3 GENERAL APPEARANCE: in distress and anxious HENMT: COMMON NORMALS: normocephalic, atraumatic and moist oral mucous membranes HEAD & SCALP: normocephalic and atraumatic Eye: COMMON NORMALS: Equal, round and reactive pupils present, EOMs intact bilaterally and conjunctivae normal CONJUNCTIVA: Yes conjunctivae normal PUPIL: Yes Equal, round and reactive pupils present Neck/C-Spine: COMMON NORMALS: full ROM, supple and no meningeal signs Resp: COMMON NORMALS: normal respiratory effort and clear to auscultation bilaterally AUSCULTATION: clear to auscultation bilaterally Cardio: COMMON NORMALS: regular rate and regular rhythm RATE: regular rate RHYTHM: regular rhythm GI: COMMON NORMALS: Normal to inspection, nondistended, normoactive bowel sounds present, Soft to palpation and non-tender PALPATION: Yes Soft to palpation Neuro: COMMON NORMALS: patient oriented x3, CN's II-XII intact bilaterally, moves all extremities, no focal motor deficits and no sensory deficits noted MENINGEAL SIGNS: Yes no meningeal signs Skin: COMMON NORMALS: no rashes or lesions noted GENERAL SKIN EXAM: no rashes or lesions noted Course Vital Signs: Vital signs: Vital Signs Temperature 98.6 F 11/25/22 16:04 Pulse Rate 90 11/25/22 21:14 Respiratory Rate 20 H 11/25/22 21:14 Blood Pressure 115/53 11/25/22 21:14 Pulse Oximetry 93 11/25/22 21:14 Oxygen Delivery Me thod Room Air 11/25/22 19:13 MDM - Female Medical Decision Making Patient's urinalysis does not reveal any bacteria. Bactrim appears to be effective at this time for her urinary tract infection. She continues to have some dysuria and urgency. I am concerned she may have possible bladder spasm. I discussed possibly placing her on Ditropan but her states that she was placed on something similar to that and she ended up in the hospital. I did give her dose of paradigm which seemed to help her discomfort. The rest of her laboratory work-up revealed a hemoglobin of 9.4 which is chronic. Sodium was low at 123. She normally runs in the low 130s. BUN was 17 creatinine 1.4. BNP was 419. EKG revealed sinus rhythm with no ST segment abnormalities. Chest x-ray did not reveal any cardiomegaly, pleural effusions or infiltrates. She did complain of a headache throughout her ER stay. We did give her 1 mg of Dilaudid for the headache as well as Zofran. Headache improved. Head CT was read by the radiologist as normal. Due to her pelvic pain we did obtain a CT scan of her abdomen and pelvis which was read by the radiologist as normal. Patient is hyponatremic which is secondary to her large consumption of water today. I recommended she decrease her water intake by only drinking when she is thirsty. She is on chlorthalidone which could also cause some hyponatremia. I did recommend she continue that at this time however I would like her to follow-up with her primary care physician later this week for recheck of her sodium. Patient is currently in the process of scheduling an appointment with a urologist. Her states that she has had these types of urinary symptoms her entire life. Patient was discharged in stable condition with prescription for Pyridium. Lab Data 11/25/22 16:30 11/25/22 16:30 Radiology Impressions Chest X-Ray 11/25/22 16:37 IMPRESSION: No acute findings. Abdomen/Pelvis CT 11/25/22 17:55 IMPRESSION: 1. Postop gastric bypass surgical change. 2. Hydropic gallbladder. No gallstones are appreciated. 3. Splenic granulomatous disease. Head CT 11/25/22 18:12 IMPRESSION: No acute intracranial abnormality. Laboratory Results WBC 8.25 10^3/uL (3.29-11.43) 11/25/22 16:30 RBC 3.33 10^6/uL (3.85-5.65) L 11/25/22 16:30 Hgb 9.40 g/dL (11.27-16.99) L 11/25/22 16:30 Hct 28.3 % (36-47) L 11/25/22 16:30 MCV 85.0 fl (85-98) 11/25/22 16:30 MCH 28.2 pg (27-33) 11/25/22 16:30 MCHC 33.2 g/dL (30-55) 11/25/22 16:30 RDW 13.5 % (12.1-15.1) 11/25/22 16:30 Plt Count 363 10^3/cmm (157-399) 11/25/22 16:30 MPV 9.0 fL (7.4-10.4) 11/25/22 16:30 Neut % (Auto) 70.5 % 11/25/22 16:30 Lymph % (Auto) 17.3 % 11/25/22 16:30 [place] % (Auto) 11.3 % 11/25/22 16:30 Eos % (Auto) 0.6 % 11/25/22 16:30 Baso % (Auto) 0.1 % 11/25/22 16:30 Neut # (Auto) 5.81 10^3/uL (1.8-7.7) 11/25/22 16:30 Lymph # (Auto) 1.4 10^3/uL (0.8-4.8) 11/25/22 16:30 [place] # (Auto) 0.9 10^3/uL (0.2-0.9) 11/25/22 16:30 Eos # (Auto) 0.1 10^3/uL (0.0-0.8) 11/25/22 16:30 Baso # (Auto) 0.0 10^3/uL (0.0-0.1) 11/25/22 16:30 Nucleated RBC % (auto) 0 % 11/25/22 16:30 Nucleated RBCs # 0.0 /100WBC 11/25/22 16:30 Sodium 123 mmol/L (136-145) L 11/25/22 16:30 Potassium 4.0 mmol/L (3.5-5.1) 11/25/22 16:30 Chloride 88 mmol/L (98-107) L 11/25/22 16:30 Carbon Dioxide 22 mmol/L (22-29) 11/25/22 16:30 Anion Gap 17.0 (5-19) 11/25/22 16:30 BUN 17 mg/dL (8-23) 11/25/22 16:30 Creatinine 1.4 mg/dL (0.5-0.9) H 11/25/22 16:30 GFR Calculation 37.6 mL/min (90-130) L 11/25/22 16:30 Glucose 100 mg/dL (65-115) 11/25/22 16:30 Calculated Osmolality 258 mOsm/kg (285-295) L 11/25/22 16:30 Calcium 9.1 mg/dL (8.5-10.5) 11/25/22 16:30 NT-Pro-B Natriuret Pep 419 pg/mL (0-125) H 11/25/22 16:30 Urine Color Yellow (Yellow) 11/25/22 16:33 Urine Appearance Clear (CLEAR) 11/25/22 16:33 Urine pH 6.5 (5-7) 11/25/22 16:33 Ur Specific [place] 1.025 (1.005-1.030) 11/25/22 16:33 Urine Protein 1+ (Negative) H 11/25/22 16:33 Urine Glucose (UA) Norm (Normal) 11/25/22 16:33 Urine Ketones Negative (Negative) 11/25/22 16:33 Urine Blood 2+ (Negative) H 11/25/22 16:33 Urine Nitrate Positive (Negative) H 11/25/22 16:33 Urine Bilirubin Neg (Negative) 11/25/22 16:33 Urine Urobilinogen Norm mg/dL (Negative) 11/25/22 16:33 Ur Leukocyte Esterase Trace (Negative) H 11/25/22 16:33 Urine RBC 0-4 /hpf (0-2) H 11/25/22 16:33 Urine WBC 0-4 /hpf (0-5) H 11/25/22 16:33 Ur Squamous Epith Cells 0-4 /hpf (0-5) H 11/25/22 16:33 Amorphous Sediment Not Reportable 11/25/22 16:33 Urine Bacteria None /hpf (NONE) 11/25/22 16:33 Urine Mucus None /hpf 11/25/22 16:33 Ur Oval Fat Bodies 1+ /hpf 11/25/22 16:33 All radiology interpretation(s) finalized by discharge Discharge Plan Discharge Patient Disposition: Home Clinical Impression: Dysuria Condition: Stable Prescriptions: New Pyridium 200 mg tablet 200 mg PO Q8H Qty: 10 0RF No Action quetiapine [Seroquel] 100 mg tablet See Rx Instructions PO .COMPLEX Rx Instructions: Take 1/2 tablet (50 mg) in AM orally 1 tablet (100 mg) in PM calcium carbonate [Calcium 600] 600 mg calcium (1,500 mg) tablet 600 mg PO DAILY simvastatin 20 mg tablet 20 mg PO DAILY omega 3-wvm-paj-fish oil [Fish Oil] 1,000 mg (120 mg-180 mg) capsule 1 cap PO DAILY hydralazine 50 mg tablet 50 mg PO TID Qty: 20 3RF magnesium oxide 400 mg (241.3 mg magnesium) tablet 400 mg PO DAILY Qty: 10 3RF nifedipine 60 mg tablet extended release 24hr 60 mg PO DAILY Qty: 10 3RF levothyroxine 25 mcg tablet 50 mcg PO DAILY cetirizine [Zyrtec] 10 mg tablet 10 mg PO DAILY PRN (Reason: allergy symptoms) Qty: 30 11RF fluticasone propionate 50 mcg/actuation spray,suspension 2 spray intranasal DAILY Qty: 16 11RF lisinopril 40 mg tablet 40 mg PO DAILY Qty: 90 3RF metoprolol succinate 25 mg tablet extended release 24 hr 25 mg PO DAILY Qty: 90 3RF alprazolam 1 mg tablet 1 mg PO TID Qty: 20 3RF chlorthalidone 25 mg tablet 25 mg PO DAILY Qty: 90 3RF Discharge Orders: Discharge ED (Routine); Ordered 11/25/22 Ordered By: Ramy Rodrigez Referrals: Obey Rose MD [Primary Care Provider] - Coding Level of Care Code ED Straightening Press Operator Helper for Mayela Jacobsen
== END 2022-11-25 21:16 | disposition home or self-care (01) ==
PROVIDERS: Emergency Provider Emergency Medicine; PCP Family Medicine
DX: R30.0 Dysuria (principal); E11.9 Type 2 diabetes mellitus without complications; I10 Essential (primary) hypertension; Z87.891 Personal history of nicotine dependence
CPT/HCPCS: 51798; 70450; 71045; 74176; 80048; 81001; 83880; 85025; 87086; 93005; 96374; 96375; 96376; 99285; J1170; J2405

== ENCOUNTER → 2022-11-28 10:45 | Outpatient (BNVA) | payer MEDICARE, SELFPAY | PROVIDERS: PCP Family Medicine; Visit Provider Family Medicine | DX: R30.0 Dysuria (principal); R39.15 Urgency of urination | CPT/HCPCS: 81000; 87077; 87086; 87184 ==

== ENCOUNTER → 2022-12-02 12:26 | Outpatient (BNVA) | payer MEDICARE, SELFPAY | PROVIDERS: PCP Family Medicine; Visit Provider Family Medicine | DX: N39.0 Urinary tract infection, site not specified (principal); E87.1 Hypo-osmolality and hyponatremia; I10 Essential (primary) hypertension | CPT/HCPCS: 80053; 81000; 85025 ==

== ENCOUNTER → 2022-12-08 16:11 | Outpatient (BNVA) | payer MEDICARE, SELFPAY | PROVIDERS: PCP Family Medicine; Visit Provider Family Medicine | DX: N39.0 Urinary tract infection, site not specified (principal); M54.9 Dorsalgia, unspecified | CPT/HCPCS: 81000; 87086 ==

== ENCOUNTER → 2022-12-16 11:40 | Outpatient (BNVA) | payer MEDICARE, SELFPAY | PROVIDERS: PCP Family Medicine; Visit Provider Family Medicine | DX: N39.0 Urinary tract infection, site not specified (principal); D64.9 Anemia, unspecified | CPT/HCPCS: 80053; 81000; 85025; 87086 ==

== ENCOUNTER → 2022-12-23 13:24 | Outpatient (BNVA) | payer MEDICARE, SELFPAY | PROVIDERS: PCP Family Medicine; Visit Provider Family Medicine | DX: N39.0 Urinary tract infection, site not specified (principal); D64.9 Anemia, unspecified | CPT/HCPCS: 81000; 85025 ==

== ENCOUNTER → 2022-12-25 09:42 | Outpatient (BNVA) | payer MEDICARE, SELFPAY | PROVIDERS: PCP Family Medicine; Visit Provider Family Medicine | DX: D64.9 Anemia, unspecified (principal); E03.9 Hypothyroidism, unspecified; E11.9 Type 2 diabetes mellitus without complications; E87.1 Hypo-osmolality and hyponatremia | CPT/HCPCS: 85025 ==

== ENCOUNTER → 2023-01-06 12:50 | Outpatient (BNVA) | payer MEDICARE, SELFPAY | PROVIDERS: PCP Family Medicine; Visit Provider Family Medicine | DX: R39.15 Urgency of urination (principal); R30.0 Dysuria; D64.9 Anemia, unspecified; E87.1 Hypo-osmolality and hyponatremia; I10 Essential (primary) hypertension | CPT/HCPCS: 80053; 81000; 83880; 85025; 87086 ==

== ENCOUNTER 2023-01-14 11:39 | Outpatient (CLI) | payer MEDICARE, SELFPAY ==
--- NOTE | 2023-01-14 11:43 | MM_ITS ---
WS: [id number] VIEWS: MLO and CC views both breasts. 3D digital tomosynthesis is also included in this exam. Comparison made with prior exam of 12/23/2006, 12/28/2007, 03/22/2009, 12/26/2011, 01/28/2021.. Findings: There was no sign of mass, architectural distortion or suspicious calcification in either breast. The breasts are almost entirely fatty Impression: MM/[place] [id number] BI-RADS: 1-Negative FOLLOW-UP: 1 Year Follow-up This mammogram was also analyzed by the Computer Aided Detection System R2 Imag e Gimp Buttonhole Machine Operator.
== END 2023-01-14 11:40 | disposition home or self-care (01) ==
LOC: RAD 11:39
PROVIDERS: PCP Family Medicine; Visit Provider Family Medicine
DX: Z12.31 Encounter for screening mammogram for malignant neoplasm of breast (principal)
CPT/HCPCS: 77063; 77067

== ENCOUNTER → 2023-02-13 08:42 | Outpatient (BNVA) | payer MEDICARE, SELFPAY | PROVIDERS: PCP Family Medicine; Visit Provider Nurse Practitioner Family | DX: R39.9 Unspecified symptoms and signs involving the genitourinary system (principal); N30.00 Acute cystitis without hematuria | CPT/HCPCS: 81000 ==

== ENCOUNTER → 2023-02-17 12:39 | Outpatient (BNVA) | payer MEDICARE, SELFPAY | PROVIDERS: PCP Family Medicine; Visit Provider Family Medicine | DX: N39.0 Urinary tract infection, site not specified (principal) | CPT/HCPCS: 81000; 87086 ==

== ENCOUNTER → 2023-02-25 14:42 | Outpatient (BNVA) | payer MEDICARE, SELFPAY | PROVIDERS: PCP Family Medicine; Visit Provider Clinical Nurse Specialist Adult Health | DX: R30.0 Dysuria (principal); I10 Essential (primary) hypertension; R39.15 Urgency of urination | CPT/HCPCS: 81000 ==

== ENCOUNTER → 2023-03-03 11:11 | Outpatient (BNVA) | payer MEDICARE, SELFPAY | PROVIDERS: PCP Family Medicine; Visit Provider Family Medicine | DX: N39.0 Urinary tract infection, site not specified (principal); F41.9 Anxiety disorder, unspecified | CPT/HCPCS: 81000; 87086 ==

== ENCOUNTER → 2023-03-12 13:55 | Outpatient (BNVA) | payer MEDICARE, SELFPAY | PROVIDERS: PCP Family Medicine; Visit Provider Family Medicine | DX: N39.0 Urinary tract infection, site not specified (principal); F41.9 Anxiety disorder, unspecified; I10 Essential (primary) hypertension; E78.00 Pure hypercholesterolemia, unspecified | CPT/HCPCS: 80053; 81000; 85025 ==

== ENCOUNTER → 2023-04-01 14:11 | Outpatient (BNVA) | payer MEDICARE, SELFPAY | PROVIDERS: PCP Family Medicine; Visit Provider Nurse Practitioner Family | DX: L57.0 Actinic keratosis (principal); L82.1 Other seborrheic keratosis; L81.4 Other melanin hyperpigmentation | CPT/HCPCS: 17000; 99213 ==

== ENCOUNTER → 2023-04-06 15:38 | Outpatient (BNVA) | payer MEDICARE, SELFPAY | PROVIDERS: PCP Family Medicine; Visit Provider Family Medicine | DX: M25.519 Pain in unspecified shoulder (principal) | CPT/HCPCS: 84550; 85025; 85651; 86140 ==

== ENCOUNTER 2023-04-22 12:06 | Outpatient (CLI) | payer MEDICARE, SELFPAY ==
--- NOTE | 2023-04-22 12:09 | XR_ITS ---
WS: [id number] Examination: XR shoulder RT min 2V* [id number] Reason for Exam: shoulder pain Date: April 22, 2023 Comparison: February 26, 2019 Findings: There is no destruction. There is no fracture or dislocation Cyst formation is again identified involving the superior glenoid and humeral head. Chronic changes a t the greater tuberosity are noted. Humeral head osteophytes are again noted. There is a bony density identified above the humeral head which may be related to calcific tendinitis versus loose body Impression: Severe chronic changes of the right shoulder are noted with now a large calcification seen above the humeral head.
--- NOTE | 2023-04-22 12:09 | XR_ITS ---
WS: [id number] EXAM: 2 view left shoulder. INDICATION: Pain decreased range of motion. Exam date: 04/22/2023. COMPARISON: None. FINDINGS: There is no destruction. There is no fracture or dislocation Spurring of the acromial process is identified. Chronic changes are noted at the greater tuberosity. Bone densities are seen overlying the lower joint space. IMPRESSION: Chronic arthritic changes are present. I see no acute bony abnormality.
== END 2023-04-22 12:07 | disposition home or self-care (01) ==
LOC: RAD 12:06
PROVIDERS: PCP Family Medicine; Visit Provider Family Medicine
DX: M19.012 Primary osteoarthritis, left shoulder (principal); M25.711 Osteophyte, right shoulder
CPT/HCPCS: 73030

== ENCOUNTER 2023-05-17 05:51 | Emergency (ER) | payer MEDICARE, SELFPAY ==
[2023-05-17 05:58] VITALS: BP 162/72; PULSE 72; RESP 15; TEMP 36.3; O2SAT 99; BMI 33.0
--- NOTE | 2023-05-17 06:06 | W.ED.FEMALGU ---
HPI - Female Genitourinary General: Chief complaint: Urogenital-Female Stated complaint: Painful urination Time Seen by Provider: 05/17/23 05:58 History of Present Illness: 67-year-old female with a history of hypothyroidism, hypertension who presents to the emergency room with increased urinary frequency. She has had some mild dysuria. She says mainly for the last 2 or 3 days she will have to go the restroom and only urinate a little bit and then very soon after have to go to the bathroom to urinate again. No abdominal pain. No nausea or vomiting. No fevers. No altered mental status. No chest pain. No shortness of breath. Review of Systems Narrative: Constitutional symptoms: Negative except as documented in HPI. Skin symptoms: Negative except as documented in HPI. Eye symptoms: Negative except as documented in HPI. ENMT symptoms: Negative except as documented in HPI. Respiratory symptoms: Negative except as documented in HPI. Cardiovascular symptoms: Negative except as documented in HPI. Gastrointestinal symptoms: Negative except as documented in HPI. Genitourinary symptoms: Negative except as documented in HPI. Musculoskeletal symptoms: Negative except as documented in HPI. Neurologic symptoms: Negative except as documented in HPI. Psychiatric symptoms: Negative except as documented in HPI. Endocrine symptoms: Negative except as documented in HPI. [facility] ED PFSH: Medical History Anxiety Hypothyroidism Diabetes Hypercholesterolemia Syncope Urgency of urination Hypertension Surgical History H/O gastric bypass Family History Grandmother Cancer Hyperlipidemia Hypertension Mother Hypertension CAD (coronary artery disease) unknown age of onset Denies family history of Diabetes Clotting disorder Dementia Chronic kidney disease (CKD) Suicide Anesthesia complication Bleeding disorder Lung disease Stroke Social History Smoking and tobacco/nicotine status: former use of tobacco/nicotine Alcohol intake: never Substance/Drug Use: never Marital status: Physical Exam Narrative: EXAM NARRATIVE: General: Alert, no acute distress. Skin: Warm, dry. Head: Normocephalic, atraumatic. Neck: Supple, trachea midline. Eye: Extraocular movements are intact. Ears, nose, mouth and throat: mucosa moist. Cardiovascular: Regular, Normal peripheral perfusion. Respiratory: Lungs are clear to auscultation, respirations are non-labored, breath sounds are equal, Symmetrical chest wall expansion. Gastrointestinal: Soft, Nontender, Non distended, Normal bowel sounds. Musculoskeletal: Normal ROM, no deformity. Neurological: Alert and oriented, No focal neurological deficit observed. Psychiatric: Cooperative, appropriate mood & affect. Course Vital Signs: Vital signs: Vital Signs Temperature 97.4 F L 05/17/23 05:58 Pulse Rate 64 05/17/23 06:51 Respiratory Rate 15 05/17/23 05:58 Blood Pressure 112/57 05/17/23 06:51 Pulse Oximetry 93 05/17/23 06:51 Oxygen Delivery Me thod Room Air 05/17/23 06:51 MDM - Female Medical Decision Making Medical decision making: Differential diagnosis including but not limited to and based on the above HPI, review of systems and physical exam: Concern for urinary tract infection. Urinalysis was ordered along with a CBC and BMP. She does not have any signs or symptoms of sepsis Lab Review: Laboratory results were reviewed and interpreted by myself the emergency room physician. Lab work is unremarkable. No leukocytosis. Renal function is normal with a BUN and creatinine of 12 and 0.7. Urine has 0-2 whites and trace bacteria. Given her symptoms and the fact that she has been treated with Macrobid I feel like I should still treat her for urinary tract infection. Her first dose of Omnicef was given here. Reexamination: Patient remained stable. No increased work of breathing. No altered mental status. No focal motor deficits. Lab Data 05/17/23 06:00 05/17/23 06:00 Laboratory Results WBC 5.87 10^3/uL (3.29-11.43) 05/17/23 06:00 RBC 3.95 10^6/uL (3.85-5.65) 05/17/23 06:00 Hgb 11.30 g/dL (11.27-16.99) 05/17/23 06:00 Hct 34.0 % (36-47) L 05/17/23 06:00 MCV 86.1 fl (85-98) 05/17/23 06:00 MCH 28.6 pg (27-33) 05/17/23 06:00 MCHC 33.2 g/dL (30-55) 05/17/23 06:00 RDW 13.4 % (12.1-15.1) 05/17/23 06:00 Plt Count 323 10^3/cmm (157-399) 05/17/23 06:00 MPV 9.3 fL (7.4-10.4) 05/17/23 06:00 Neut % (Auto) 41.3 % 05/17/23 06:00 Lymph % (Auto) 42.2 % 05/17/23 06:00 [place] % (Auto) 14.0 % 05/17/23 06:00 Eos % (Auto) 2.0 % 05/17/23 06:00 Baso % (Auto) 0.3 % 05/17/23 06:00 Neut # (Auto) 2.42 10^3/uL (1.8-7.7) 05/17/23 06:00 Lymph # (Auto) 2.5 10^3/uL (0.8-4.8) 05/17/23 06:00 [place] # (Auto) 0.8 10^3/uL (0.2-0.9) 05/17/23 06:00 Eos # (Auto) 0.1 10^3/uL (0.0-0.8) 05/17/23 06:00 Baso # (Auto) 0.0 10^3/uL (0.0-0.1) 05/17/23 06:00 Nucleated RBC % (auto) 0 % 05/17/23 06:00 Nucleated RBCs # 0.0 /100WBC 05/17/23 06:00 Sodium 133 mmol/L (136-145) L 05/17/23 06:00 Potassium 4.7 mmol/L (3.5-5.1) 05/17/23 06:00 Chloride 96 mmol/L (98-107) L 05/17/23 06:00 Carbon Dioxide 23 mmol/L (22-29) 05/17/23 06:00 Anion Gap 18.7 (5-19) 05/17/23 06:00 BUN 12 mg/dL (8-23) 05/17/23 06:00 Creatinine 0.7 mg/dL (0.5-0.9) 05/17/23 06:00 GFR Calculation 83.7 mL/min (90-130) L 05/17/23 06:00 Glucose 118 mg/dL (65-115) H 05/17/23 06:00 Calculated Osmolality 277 mOsm/kg (285-295) L 05/17/23 06:00 Calcium 9.6 mg/dL (8.5-10.5) 05/17/23 06:00 Urine Color Straw (Yellow) 05/17/23 06:00 Urine Appearance Clear (CLEAR) 05/17/23 06:00 Urine pH 8 (5-7) H 05/17/23 06:00 Ur Specific Atlas 1.010 (1.005-1.030) 05/17/23 06:00 Urine Protein Neg (Negative) 05/17/23 06:00 Urine Glucose (UA) Norm (Normal) 05/17/23 06:00 Urine Ketones Negative (Negative) 05/17/23 06:00 Urine Blood Neg (Negative) 05/17/23 06:00 Urine Nitrate Negative (Negative) 05/17/23 06:00 Urine Bilirubin Neg (Negative) 05/17/23 06:00 Prot Sulfosalicylic Acd Negative (Negative) 05/17/23 06:00 Urine Urobilinogen Norm mg/dL (Negative) 05/17/23 06:00 Ur Leukocyte Esterase Negative (Negative) 05/17/23 06:00 Urine RBC None /hpf (0-2) 05/17/23 06:00 Urine WBC None /hpf (0-5) 05/17/23 06:00 Ur Squamous Epith Cells None /hpf (0-5) 05/17/23 06:00 Amorphous Sediment Not Reportable 05/17/23 06:00 Urine Bacteria Trace /hpf (NONE) 05/17/23 06:00 No radiology studies performed this visit Other Data - For dose Omnicef given here. [facility] - Discharged home - Discussed plan with patient. Answered any questions. - Evaluation and treatment of this problem were appropriate in the emergency setting. Discharge Plan Discharge Patient Disposition: Home Clinical Impression: Urinary tract infection Qualifiers: Urinary tract infection type: acute cystitis Hematuria presence: without hematuria Qualified Code(s): N30.00 - Acute cystitis without hematuria Condition: Stable Prescriptions: New cefdinir 300 mg capsule 300 mg PO BID 5 Days Qty: 10 0RF Pyridium 100 mg tablet 100 mg PO Q8H Qty: 6 0RF No Action calcium carbonate [Calcium 600] 600 mg calcium (1,500 mg) tablet 600 mg PO DAILY simvastatin 20 mg tablet 20 mg PO DAILY omega 5-ril-uvy-fish oil [Fish Oil] 1,000 mg (120 mg-180 mg) capsule 1 cap PO DAILY Pyridium 200 mg tablet 200 mg PO Q8H 30 Days Qty: 30 11RF ferrous sulfate 325 mg (65 mg iron) tablet 325 mg PO BID Qty: 60 3RF Gemtesa 75 mg tablet 75 mg PO DAILY trazodone 100 mg tablet 100 mg PO .QHS Qty: 30 11RF magnesium oxide 400 mg (241.3 mg magnesium) tablet 400 mg PO DAILY Qty: 10 3RF levothyroxine 25 mcg tablet 50 mcg PO DAILY quetiapine [Seroquel] 100 mg tablet 100 mg PO BID phenazopyridine [Pyridium] 100 mg tablet 100 mg PO TID PRN (Reason: pain) Qty: 60 3RF nitrofurantoin monohyd/m-cryst [Macrobid] 100 mg capsule 100 mg PO Q12H 30 Days Qty: 60 0RF Rx Instructions: must administer with a meal/food metoprolol succinate 100 mg tablet extended release 24 hr 100 mg PO DAILY Qty: 30 11RF cetirizine 10 mg tablet See Rx Instructions .ROUTE .COMPLEX Qty: 30 11RF Dose Instruction: TAKE 1 TABLET BY MOUTH ONCE DAILY NEEDED FOR ALLERGY SYMPTOMS Rx Instructions: TAKE 1 TABLET BY MOUTH ONCE DAILY NEEDED FOR ALLERGY SYMPTOMS fluticasone propionate 50 mcg/actuation spray,suspension 2 spray intranasal DAILY Qty: 16 11RF hydralazine 50 mg tablet See Rx Instructions .ROUTE .COMPLEX Qty: 270 3RF Dose Instruction: TAKE 1 TABLET THREE TIMES DAILY Rx Instructions: TAKE 1 TABLET THREE TIMES DAILY nifedipine 60 mg tablet extended release 24hr See Rx Instructions .ROUTE .COMPLEX Qty: 90 3RF Dose Instruction: TAKE 1 TABLET EVERY DAY Rx Instructions: TAKE 1 TABLET EVERY DAY lisinopril 40 mg tablet See Rx Instructions .ROUTE .COMPLEX Qty: 90 3RF Dose Instruction: TAKE 1 TABLET EVERY DAY Rx Instructions: TAKE 1 TABLET EVERY DAY alprazolam 1 mg tablet 1 mg PO TID Qty: 90 3RF Discharge Orders: Discharge ED (Routine); Ordered 05/17/23 Ordered By: Frida Mcconnell Referrals: Obey Rose MD [Primary Care Provider] - (You have been screened and evaluated and felt safe for discharge. Health conditions do change or evolve sometimes and as such it is important that you follow up with your Primary Doctor to be re checked, 3-5 days is a general good time frame for follow up. You are always welcome to return to the ED for re assessment if your symptoms are worsening or you have new concerns) Discharge Diet: Usual diet Discharge Activity: Resume usual activity Patient Instructions: Urinary Tract Infection in Women (ED), Urinary Urgency and Frequency (DC) Coding Level of Care Code ED Balance Weigher for Mayela Jacobsen
[2023-05-17 06:09] LABS: Basophils % 0.3 %; Eosinophils # 0.1 10^3/uL (0.0-0.8); Lymphocytes # 2.5 10^3/uL (0.8-4.8); Lymphocytes % 42.2 %; Mean Corpuscular HGB Conc 33.2 g/dL (30-55); Mean Corpuscular Hemoglobin 28.6 pg (27-33); Mean Corpuscular Volume 86.1 fl (85-98); Mean Platelet Volume 9.3 fL (7.4-10.4); Monocytes # 0.8 10^3/uL (0.2-0.9); Neutrophils # 2.42 10^3/uL (1.8-7.7); Neutrophils % 41.3 %; Nucleated Red Blood Cells % 0 %; Platelet Count 323 10^3/cmm (157-399); Red Blood Count 3.95 10^6/uL (3.85-5.65); Red Cell Distribution Width 13.4 % (12.1-15.1); White Blood Count 5.87 10^3/uL (3.29-11.43)
[2023-05-17 06:31] LABS: Blood Urea Nitrogen 12 mg/dL (8-23); Calcium 9.6 mg/dL (8.5-10.5); Carbon Dioxide 23 mmol/L (22-29); Chloride 96 mmol/L (98-107); Creatinine Clr Calc Pharmacy 65.9921; Glomerular Filtration Rate 83.7 mL/min (90-130); Glucose 118 mg/dL (65-115); Osmolality Calculated 277 mOsm/kg (285-295); Sodium 133 mmol/L (136-145)
[2023-05-17 06:36] LABS: Anion Gap 18.7 (5-19); Potassium 4.7 mmol/L (3.5-5.1)
[2023-05-17 06:43] LABS: Urine Appearance Clear (CLEAR); Urine Color Straw (Yellow); pH Urine 8 (5-7)
[2023-05-17 06:44] LABS: Add Urine Culture? No; Bacteria Urine TRACE /hpf; Bilirubin Urine Neg (Negative); Blood Urine Neg (Negative); Glucose Urine UA Norm (Normal); Ketones Urine Negative (Negative); Leukocyte Esterase Urine Negative (Negative); Nitrate Urine Negative (Negative); Protein Urine Neg (Negative); Sulfosalicylic Acid Urine Negative (Negative); Urobilinogen Urine Norm (Negative)
[2023-05-17 06:51] VITALS: BP 112/57; PULSE 64; O2SAT 93
--- NOTE | 2023-05-17 06:51 | PC.NURSE ---
THIS NURSE ASSUMED CARE AT 0645.
[2023-05-17 07:05] VITALS: BP 112/57; PULSE 64; RESP 15; TEMP 36.3; O2SAT 93
[2023-05-17] MEDS: cefdinir 300 MG CAPSULE PO (07:05)
== END 2023-05-17 07:06 | disposition home or self-care (01) ==
PROVIDERS: Emergency Provider Emergency Medicine; PCP Family Medicine
DX: N30.00 Acute cystitis without hematuria (principal); Z87.891 Personal history of nicotine dependence; E11.9 Type 2 diabetes mellitus without complications; I10 Essential (primary) hypertension
CPT/HCPCS: 80048; 81001; 85025; 99283

== ENCOUNTER → 2023-05-21 10:58 | Outpatient (BNVA) | payer MEDICARE, SELFPAY | PROVIDERS: PCP Family Medicine; Referring Provider Family Medicine; Visit Provider Student in an Organized Health Care Education/Training Program | DX: M19.011 Primary osteoarthritis, right shoulder (principal); M19.012 Primary osteoarthritis, left shoulder; M67.911 Unspecified disorder of synovium and tendon, right shoulder; M67.912 Unspecified disorder of synovium and tendon, left shoulder | CPT/HCPCS: 20610; 99204; J3301 ==

== ENCOUNTER → 2023-06-03 11:00 | Outpatient (BNVA) | payer MEDICARE, SELFPAY | PROVIDERS: PCP Family Medicine; Visit Provider Family Medicine | DX: N30.00 Acute cystitis without hematuria (principal) | CPT/HCPCS: 81000 ==

== ENCOUNTER 2023-06-21 13:45 | Inpatient (IN) | payer MEDICARE, SELFPAY ==
[2023-06-21] VITALS (7 sets, daily range): BP systolic 100–162; BP diastolic 57–83; PULSE 56–127; RESP 23–27; TEMP 36.3; O2SAT 93–98; BMI 29.0
--- NOTE | 2023-06-21 14:04 | ECG_ITS ---
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 Measurements Intervals [place] Rate: 140 P: 164 [place]: 134 QRS: 26 QRSD: 93 T: 110 QT: 284 QTc: 435 Interpretive Statements ECTOPIC ATRIAL TACHYCARDIA, POSSIBLE ATRIAL FLUTTER POSSIBLE ANTERIOR MYOCARDIAL INFARCTION , PROBABLY OLD [30 ms Q WAVE IN V3/V4, OR R < 0.2 mV IN V4] ABNORMAL RHYTHM ECG Compared to ECG 11/25/2022 16:12:09 Myocardial infarct finding now present Sinus rhythm no longer present Electronically Signed On 06-22-2023 14:59:42 CDT by Lit Molina M.D. [id number]
--- NOTE | 2023-06-21 14:04 | XRR_ITS ---
PROCEDURE INFORMATION: Exam: XR Chest Exam date and time: 06/21/2023 2:15 PM Age: 67 years old Clinical indication: Cough and dyspnea; Additional info: Dyspnea/cough TECHNIQUE: Imaging protocol: Radiologic exam of the chest. Views: 1 view. COMPARISON: CR XR chest 1V portable [id number] 11/25/2022 4:57 PM FINDINGS: Lungs: Lungs are clear bilaterally. Pleural spaces: No pleural effusion. No pneumothorax. Heart/Mediastinum: Stable moderate enlargement of the cardiac silhouette. Mediastinal contours are unremarkable. Vasculature: Stable vascular calcifications in the aorta. Bones/joints: Unremarkable for age. Intraperitoneal space: Surgical clips in the left upper quadrant are stable. XR/XR chest 1V portable [id number] IMPRESSION: 1. No acute cardiopulmonary process. 2. Incidental/nonacute findings are listed in the report.
--- NOTE | 2023-06-21 14:11 | ED_ITS ---
HPI - Chest Pain 2 General: Chief Complaint: Chest Pain Stated Complaint: chest pains Time Seen by Provider: 06/21/23 14:03 Source: patient Mode of arrival: ambulatory History of Present Illness: 67-year-old female who presents to the e mergency room with complaints of rapid irregular heart rate. She she is having chest discomfort radiating to her back. She does note that recently she had increased her Xanax and then decreased it again. She has no known history of A-fib arrhythmias. She notes that with any activity she gets a very rapid heart rate somewhat short of breath. complaint: chest pain Onset (ago): day(s) Timing of current episode: episodic Prior episodes: Yes Pain location: substernal Pain radiation: back Relieving factors: nothing Exacerbating factors: nothing Associated symptoms: Deny abdominal pain, diaphoresis, dyspnea, fever(s), leg edema, nausea, palpitations, sense of impending doom, syncope or vomiting Treatment prior to arrival: none Review of Systems 2 Const: Denies: fever(s), chills or diaphoresis Card: Denies: chest pain, palpitations or syncope Resp: Denies: dyspnea GI: Denies: abdominal pain, nausea or vomiting : Denies: dysuria, urinary frequency or urinary urgency Musc: Denies: neck pain or back pain Skin/Breast: Denies: rash PFSH ED 2 PFSH: Medical History Anxiety Hypothyroidism Diabetes Hypercholesterolemia Syncope Urgency of urination Hypertension Surgical History H/O gastric bypass Family History Grandmother Cancer Hyperlipidemia Hypertension Mother Hypertension CAD (coronary artery disease) unknown age of onset Denies family history of Diabetes Clotting disorder Dementia Chronic kidney disease (CKD) Suicide Anesthesia complication Bleeding disorder Lung disease Stroke Social History Smoking and tobacco/nicotine status: former use of tobacco/nicotine Alcohol intake: never Substance/Drug Use: never Marital status: Physical Exam 2 Const: GENERAL APPEARANCE: cooperative and comfortable O RIENTATION/CONSCIOUSNESS: Yes awake, Yes oriented to person, Yes oriented to place and Yes oriented to time HENMT: COMMON NORMALS: normocephalic, atraumatic and hearing grossly normal bilaterally HEAD & SCALP: normocephalic and atraumatic Resp: COMMON NORMALS: normal respiratory effort, No retractions, No use of accessory muscles and clear to auscultation bilaterally AUSCULTATION: clear to auscultation bilaterally Cardio: COMMON NORMALS: No murmurs present (Cardio) RATE: tachycardic R HYTHM: abnormal rhythm irregularly irregular GI: COMMON NORMALS: Soft to palpation and No hepatosplenomegaly present A USCULTATION: Yes normoactive bowel sounds PALPATION: Yes Soft to palpation, No Tenderness to palpation present (GI), No Guarding due to palpation present (GI) and Yes No hepatosplenomegaly present Extremity: COMMON NORMALS: normal to inspection, capillary refill normal, no clubbing, cyanosis or edema, no calf tenderness and no pedal edema Neuro: SENSORIUM/ORIENTATION: Yes oriented to person, Yes oriented to place and Yes oriented to time Skin: COMMON NORMALS: no rashes or lesions noted GENERAL SKIN EXAM: no rashes or lesions noted Course 2 Vital Signs: Vital signs: Vital Signs Pulse Rate 84 06/21/23 15:30 Respiratory Rate 23 H 06/21/23 15:00 Blood Pressure 162/67 06/21/23 15:30 Pulse Oximetry 97 06/21/23 15:30 MDM - Chest Pain Medical Decision Making Initially patient came back to the room she is in A-fib flutter with a heart rate of 140s after resting for time improved to the 90s and stayed there when she got up to go to the bathroom resumed in A-fib flutter in the 130s. It was rest she is comfortable. She is also excelled with drawl from benzodiazepines which may either be contributing or uncovered her proclivity for the A-fib flutter. Will complete her serial enzymes admitted to the hospital medication adjustments further workup for the A-fib flutter. Will she will also need changes to achieve rate control. Discussed with the hospitalist orders written Medical Records I reviewed the patient's medical records. Lab Data I reviewed the patient's lab results. 06/21/23 14:09 06/21/23 14:09 Radiology Impressions Chest X-Ray 06/21/23 14:04 IMPRESSION: 1. No acute cardiopulmonary process. 2. Incidental/nonacute findings are listed in the report. Laboratory Results WBC 7.85 10^3/uL (3.29-11.43) 06/21/23 14:09 RBC 3.84 10^6/uL (3.85-5.65) L 06/21/23 14:09 Hgb 11.30 g/dL (11.27-16.99) 06/21/23 14:09 Hct 34.0 % (36-47) L 06/21/23 14:09 MCV 88.5 fl (85-98) 06/21/23 14:09 MCH 29.4 pg (27-33) 06/21/23 14:09 MCHC 33.2 g/dL (30-55) 06/21/23 14:09 RDW 13.6 % (12.1-15.1) 06/21/23 14:09 Plt Count 319 10^3/cmm (157-399) 06/21/23 14:09 MPV 8.7 fL (7.4-10.4) 06/21/23 14:09 Neut % (Auto) 55.7 % 06/21/23 14:09 Lymph % (Auto) 32.2 % 06/21/23 14:09 [place] % (Auto) 10.6 % 06/21/23 14:09 Eos % (Auto) 0.9 % 06/21/23 14:09 Baso % (Auto) 0.3 % 06/21/23 14:09 Neut # (Auto) 4.38 10^3/uL (1.8-7.7) 06/21/23 14:09 Lymph # (Auto) 2.5 10^3/uL (0.8-4.8) 06/21/23 14:09 [place] # (Auto) 0.8 10^3/uL (0.2-0.9) 06/21/23 14:09 Eos # (Auto) 0.1 10^3/uL (0.0-0.8) 06/21/23 14:09 Baso # (Auto) 0.0 10^3/uL (0.0-0.1) 06/21/23 14:09 Nucleated RBC % (auto) 0 % 06/21/23 14:09 Nucleated RBCs # 0.0 /100WBC 06/21/23 14:09 Sodium 129 mmol/L (136-145) L 06/21/23 14:09 Potassium 3.5 mmol/L (3.5-5.1) 06/21/23 14:09 Chloride 93 mmol/L (98-107) L 06/21/23 14:09 Carbon Dioxide 21 mmol/L (22-29) L 06/21/23 14:09 Anion Gap 18.5 (5-19) 06/21/23 14:09 BUN 12 mg/dL (8-23) 06/21/23 14:09 Creatinine 0.8 mg/dL (0.5-0.9) 06/21/23 14:09 GFR Calculation 71.8 mL/min (90-130) L 06/21/23 14:09 Glucose 112 mg/dL (65-115) 06/21/23 14:09 Calculated Osmolality 269 mOsm/kg (285-295) L 06/21/23 14:09 Calcium 9.6 mg/dL (8.5-10.5) 06/21/23 14:09 Total Bilirubin 0.6 mg/dL (0.15-1.2) 06/21/23 14:09 AST 17 U/L (0-32) 06/21/23 14:09 ALT 15 U/L (0-33) 06/21/23 14:09 Alkaline Phosphatase 50 U/L (35-105) 06/21/23 14:09 Troponin T Baseline 7 ng/L (0-10) 06/21/23 14:09 Total Protein 7.2 g/dL (6.6-8.7) 06/21/23 14:09 Albumin 4.5 g/dL (3.5-5.2) 06/21/23 14:09 Globulin 2.7 g/dL (1.3-4.6) 06/21/23 14:09 TSH 1.53 uIU/mL (0.27-4.20) 06/21/23 14:09 All radiology interpretation(s) finalized by discharge Discharge Plan Discharge Patient Disposition: Admitted As Inpatient Admit Provider: Shawn Campos Clinical Impression: Benzodiazepine withdrawal, Chest pain, atypical, Intermittent atrial fibrillation Condition: Stable Coding Level of Care Code ED Financial Reporting Specialist for Chg Ann-Marie
[2023-06-21 14:13] LABS: Basophils % 0.3 %; Eosinophils # 0.1 10^3/uL (0.0-0.8); Eosinophils % 0.9 %; Lymphocytes # 2.5 10^3/uL (0.8-4.8); Lymphocytes % 32.2 %; Mean Corpuscular HGB Conc 33.2 g/dL (30-55); Mean Corpuscular Hemoglobin 29.4 pg (27-33); Mean Corpuscular Volume 88.5 fl (85-98); Mean Platelet Volume 8.7 fL (7.4-10.4); Monocytes # 0.8 10^3/uL (0.2-0.9); Monocytes % 10.6 %; Neutrophils # 4.38 10^3/uL (1.8-7.7); Neutrophils % 55.7 %; Nucleated Red Blood Cells % 0 %; Platelet Count 319 10^3/cmm (157-399); Red Blood Count 3.84 10^6/uL (3.85-5.65); Red Cell Distribution Width 13.6 % (12.1-15.1); White Blood Count 7.85 10^3/uL (3.29-11.43)
--- NOTE | 2023-06-21 14:24 | ECG_ITS ---
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 Measurements Intervals [place] Rate: 93 P: 77 [place]: 164 QRS: 48 QRSD: 96 T: 52 QT: 359 QTc: 448 Interpretive Statements SINUS RHYTHM Compared to ECG 06/21/2023 13:47:55 Myocardial infarct finding no longer present Electronically Signed On 06-22-2023 14:59:47 CDT by Lit Molina M.D. [id number]
[2023-06-21 14:31] LABS: Troponin(5th) Baseline 7 ng/L (0-10)
[2023-06-21 14:40] LABS: Alanine Aminotransferase 15 U/L (0-33); Albumin Level 4.5 g/dL (3.5-5.2); Alkaline Phosphatase 50 U/L (35-105); Anion Gap 18.5 (5-19); Aspartate Amino Transferase 17 U/L (0-32); Blood Urea Nitrogen 12 mg/dL (8-23); Calcium 9.6 mg/dL (8.5-10.5); Carbon Dioxide 21 mmol/L (22-29); Chloride 93 mmol/L (98-107); Creatinine Clr Calc Pharmacy 64.3288; Globulin 2.7 g/dL (1.3-4.6); Glomerular Filtration Rate 71.8 mL/min (90-130); Glucose 112 mg/dL (65-115); Osmolality Calculated 269 mOsm/kg (285-295); Potassium 3.5 mmol/L (3.5-5.1); Sodium 129 mmol/L (136-145); Total Bilirubin 0.6 mg/dL (0.15-1.2); Total Protein 7.2 g/dL (6.6-8.7)
[2023-06-21 14:57] LABS: Thyroid Stimulating Hormone 1.53 uIU/mL (0.27-4.20)
[2023-06-21] MEDS: LORazepam 2 mg Tablet PO (15:47)
--- NOTE | 2023-06-21 16:07 | ECG_ITS ---
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 Measurements Intervals [place] Rate: 81 P: 80 [place]: 162 QRS: 40 QRSD: 96 T: 43 QT: 383 QTc: 445 Interpretive Statements SINUS RHYTHM Compared to ECG 06/21/2023 14:24:56 No significant changes Electronically Signed On 06-22-2023 15:06:06 CDT by Lit Molina M.D. [id number]
--- NOTE | 2023-06-21 16:55 | P.HP_ITS ---
Providers/Chief Complaint 2 Admitting Physician: Shawn Campos MD Primary Care Provider: Obey Rose MD Chief Complaint: chest pains History of Present Illness Trish Rocha is a 67 year old female with a past medical history of hypertension hyperlipidemia, diet-controlled type 2 diabetes mellitus, hypothyroidism, history of gastric bypass, who presents to [facility] due to shortness of breath, chest palpitations, patient currently is alert oriented x 4, following all commands her speech is very pressured, she frequently requires redirection in, a bit forgetful, mild tremor, no focal neurologic deficits no slurring her words no facial droop no focal weakness, currently heart rates are in the 130s on the monitor looks like sinus tachycardia, hypertensive blood pressure 160s over 90s, on room air, patient's is at bedside. Patient tells me that roughly 3 weeks ago she she has been under a lot of stress, her mom was sick in the hospital, her father who has end-stage cancer, currently has had worsening of his condition, on hospice, she has been dealing with a lot of stress, she takes alprazolam 1 mg every 8 hours, she has been doing that for the last 30 years due to the stress she has been using it every 6 hours, however recently in the last 3 to 4 days she was worried that she was taking too much so she cut down the dose, she was taking a half a milligram in the morning and 1 mg in the afternoon, she tells me that since then she has been having chest pain, chest palpitations and shortness of breath, no lower extremity edema, no cough, no fevers, no chills, no hemoptysis, no calf pain, no calf swelling, denies any visual auditory or tactile hallucinations does report poor appetite Review of Systems 2 Const: Denies: fever(s) or chills Eyes: Denies: change in vision Card: Reports: chest pain and palpitations Resp: Reports: dyspnea GI: Denies: abdominal pain : Denies: flank pain Musc: Denies: neck pain Neuro: Denies: headache(s), numbness in extremities, weakness in extremities, sensory changes, frequent falls, dizziness, vertigo, confusion, Slurred speech present or difficulty communicating thoughts Psych: Reports: anxiety Medications/Allergies Home Medications Medication Instructions Recorded Confirmed Last Taken Type omega 2-ouo-ctm-fish oil 1,000 mg 1 cap PO DAILY 07/30/21 06/21/23 06/21/23 History (120 mg-180 mg) capsule (Fish Oil) levothyroxine 25 mcg tablet 50 mcg PO DAILY 07/08/22 06/21/23 06/21/23 History quetiapine 100 mg tablet (Seroquel) 100 mg PO BID 12/16/22 06/21/23 06/21/23 History fluticasone propionate 50 2 spray intranasal DAILY #16 grams 03/05/23 06/21/23 06/21/23 Rx mcg/actuation nasal spray,suspension metoprolol succinate 100 mg 100 mg PO DAILY #30 tabs 05/06/23 06/21/23 06/21/23 Rx tablet,extended release 24 hr alprazolam 1 mg tablet 1 mg PO TID #90 tabs 05/29/23 06/21/23 06/21/23 Rx famotidine 20 mg tablet (Pepcid) 20 mg PO BID #180 tabs 06/10/23 06/21/23 06/21/23 Rx magnesium oxide 400 mg (241.3 mg 400 mg PO DAILY #10 tabs 06/17/23 06/21/23 06/21/23 Rx magnesium) tablet atorvastatin 80 mg tablet 80 mg PO DAILY 06/21/23 06/21/23 06/21/23 History diphenhydramine HCl 25 mg capsule 25 mg PO TID PRN ALLERGIES 06/21/23 06/21/23 06/20/23 History (Benadryl) ferrous sulfate 325 mg (65 mg 325 mg PO DAILY 06/21/23 06/21/23 06/21/23 History iron) tablet hydralazine 50 mg tablet 50 mg PO TID 06/21/23 06/21/23 06/21/23 History lisinopril 40 mg tablet 40 mg PO DAILY 06/21/23 06/21/23 06/21/23 History loratadine 10 mg tablet (Claritin) 10 mg PO DAILY 06/21/23 06/21/23 06/21/23 History nifedipine 60 mg tablet,extended 60 mg PO DAILY 06/21/23 06/21/23 06/21/23 History release 24 hr trazodone 100 mg tablet 100 mg PO BEDTIME 06/21/23 06/21/2306/20/24 History Allergies Allergy/AdvReac Type Severity Reaction Status Date / Time amlodipine Allergy Unknown Unknown Verified 06/21/23 13:58 Iodinated Contrast Media Allergy ITCHING Verified 06/21/23 13:58 PFSH Acute 2 PFSH: Medical History Anxiety Hypothyroidism Diabetes Hypercholesterolemia Syncope Urgency of urination Hypertension Surgical History H/O gastric bypass Family History Grandmother Cancer Hyperlipidemia Hypertension Mother Hypertension CAD (coronary artery disease) unknown age of onset Denies family history of Diabetes Clotting disorder Dementia Chronic kidney disease (CKD) Suicide Anesthesia complication Bleeding disorder Lung disease Stroke Social History Smoking and tobacco/nicotine status: former use of tobacco/nicotine Alcohol intake: never Substance/Drug Use: never Marital status: Vitals/I&O/Wt Last Vital Signs Pulse 84 06/21/23 15:30 Resp 23 H 06/21/23 15:00 BP 162/67 06/21/23 15:30 Pulse Ox 97 06/21/23 15:30 Weight last 48 hrs Weight 72.121 kg Physical Exam 2 Const: COMMON NORMALS: no acute distress and patient oriented x3 OTHER: Speech is often pressured, flight of ideas, mild tremor, frequently requires redirection, frequently require repeat questions HENMT: COMMON NORMALS: normocephalic HEAD & SCALP: normocephalic Eye: COMMON NORMALS: Equal, round and reactive pupils present and EOMs intact bilaterally Neck/C-Spine: COMMON NORMALS: no JVD Lymph: LYMPHATIC: no lymphadenopathy noted Resp: COMMON NORMALS: normal respiratory effort, No retractions, No use of accessory muscles and clear to auscultation bilaterally AUSCULTATION: clear to auscultation bilaterally Cardio: COMMON NORMALS: no JVD, regular rate, regular rhythm, S1 normal heart sound present and S2 normal heart sound present RATE: tachycardic RHYTHM: regular rhythm HEART SOUNDS: S1 normal heart sound present and S2 normal heart sound present GI: COMMON NORMALS: Normal to inspection, nondistended, normoactive bowel sounds present, Soft to palpation, non-tender, No hepatosplenomegaly present, no masses and no bruits PALPATION: Yes Soft to palpation and Yes No hepatosplenomegaly present Extremity: COMMON NORMALS: capillary refill normal, no clubbing, cyanosis or edema, no calf tenderness and no pedal edema Neuro: COMMON NORMALS: patient oriented x3, CN's II-XII intact bilaterally, moves all extremities and no focal motor deficits Psych: COMMON NORMALS: mental status grossly normal Data 06/21/23 14:09 06/21/23 14:09 CXR: My impression: No focal infiltrates EKG 1: My Interpretation: Atrial flutter versus sinus tachycardia, looks like more atrial flutter, with rate in the 140s A&P Assessment and plan (1) Withdrawal from benzodiazepine: (2) Atrial flutter: (3) Anxiety: (4) Hypertension: Qualifiers: Hypertension type: unspecified Qualified Code(s): I10 - Essential (primary) hypertension (5) Hypercholesterolemia: (6) Diabetes: (7) Hypothyroidism: (8) Hyponatremia: Plan Withdrawal from Xanax -New home dose alprazolam 1 mg every 8 hours -Monitor mentation closely -Neurochecks, aspiration precautions Atrial flutter versus sinus tachycardia, initial EKG did not look more like atrial flutter -Did report heart rates in the 160s at home -Currently sinus tachycardia in the 130s -Metoprolol 50 twice daily -Continue home nifedipine -Serial EKGs, short troponins, telemetry monitoring, BNP, if elevated will consider Lasix for fluid overload given shortness of breath complains ? Will consider anticoagulant therapy based on clinical progress Chest pain, serial EKGs, serial troponins, telemetry monitoring ? Aspirin, statin, beta-chantale Hypothyroidism, TSH Type 2 diabetes mellitus, A1c Check alcohol levels, check magnesium level check TSH, check urine toxicology screen Hyponatremia, has chronic hyponatremia as low as 123 currently 1.9 ? Monitor does report poor appetite Attestations 2 Medical Necessity Statement*: Patient requires hospitalization, inpatient, greater than 2 midnights, for benzodiazepine withdrawal, atrial flutter, hyponatremia, shortness of breath, chest pain Diagnoses Withdrawal from benzodiazepine F13.939 Atrial flutter I48.92 Anxiety F41.9 Essential hypertension I10 Hypertension type: unspecified Hypercholesterolemia E78.00 Diabetes E11.9 Hypothyroidism E03.9 Hyponatremia E87.1
[2023-06-21] MEDS: enoxaparin 40 mg/0.4 mL Syringe SUBCUT (17:08)
[2023-06-21] MEDS: metoprolol tartrate 50 mg Tablet PO (17:08)
[2023-06-21] MEDS: pantoprazole 40 mg SDV IVP (17:08)
[2023-06-21] MEDS: ALPRAZolam 0.5 mg Tablet 1 MG PO (17:08)
[2023-06-21] MEDS: quetiapine 100 mg Tablet PO (17:08)
[2023-06-21 17:27] LABS: Estmated Average Glucose 88; Hemoglobin A1C 4.7 % (4.0-6.0)
[2023-06-21 17:33] LABS: Cholesterol 122 mg/dL (0-200); HDL Cholesterol 58 mg/dL (60-100); LDL Cholesterol Calculated 54 mg/dL (50-129); LDL HDL Ratio 0.93 RATIO (0.00-3.22); Magnesium 1.7 mg/dL (1.7-2.3); NT Pro B Type Natriuretic Pept 254 pg/mL (0-125); T3 Free 2.4 PG/ML (2.0-4.4); Thyroid Stimulating Hormone 1.53 uIU/mL (0.27-4.20); Triglycerides 50 mg/dL (0-150)
[2023-06-21 17:33] LABS: Add Urine Microscopic? NO; Charge for UA Resulting for Rev
[2023-06-21 17:34] LABS: Alcohol Level < 10 mg/dL (0-10)
[2023-06-21 17:37] LABS: Bilirubin Urine Neg (Negative); Blood Urine Neg (Negative); Glucose Urine UA Norm (Normal); Ketones Urine 1+ (Negative); Leukocyte Esterase Urine Negative (Negative); Nitrate Urine Negative (Negative); Protein Urine Neg (Negative); Sulfosalicylic Acid Urine Negative (Negative); Urine Appearance Clear (CLEAR); Urine Color Yellow (Yellow); Urobilinogen Urine Norm (Negative); pH Urine 8 (5-7)
[2023-06-21 17:45] LABS: Amphetamines Screen Urine Negative (Negative); Barbiturates Screen Urine Negative (Negative); Benzodiazepines Screen Urine Positive (Negative); Cocaine Screen Urine Negative (Negative); Opiate Screen Urine Negative (Negative); PCP Screen Urine Negative (Negative); THC Screen Urine Positive (Negative)
[2023-06-21] MEDS: aspirin 81 mg EC Tablet PO (20:35)
[2023-06-21] MEDS: trazodone 100 mg Tablet PO (20:36)
[2023-06-21] MEDS: acetaminophen 325 mg Tablet 650 MG PO (20:36)
--- NOTE | 2023-06-21 21:40 | ECG_ITS ---
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 Measurements Intervals [place] Rate: 58 P: 44 TX: 174 QRS: 40 QRSD: 92 T: 41 QT: 446 QTc: 439 Interpretive Statements SINUS BRADYCARDIA Compared to ECG 06/21/2023 16:07:57 Sinus rhythm no longer present Electronically Signed On 06-22-2023 15:06:32 CDT by Lit Molina M.D. [email or web address][facility] [email or web address][facility] medical [id number]
[2023-06-21 22:29] LABS: Troponin 5 6HR 15.59 ng/L (0-10); Troponin 5 6HR Delta 8.59 ng/L (0-12)
[2023-06-22] VITALS (7 sets, daily range): BP systolic 102–161; BP diastolic 45–81; PULSE 50–67; RESP 15–19; TEMP 36.6–36.8; O2SAT 92–95
[2023-06-22] MEDS: ALPRAZolam 0.5 mg Tablet 1 MG PO ×2 (00:42→08:24)
[2023-06-22 04:24] LABS: Basophils % 0.2 %; Eosinophils # 0.1 10^3/uL (0.0-0.8); Eosinophils % 2.2 %; Hematocrit 32.2 % (36-47); Lymphocytes # 2.4 10^3/uL (0.8-4.8); Mean Corpuscular HGB Conc 31.4 g/dL (30-55); Mean Corpuscular Hemoglobin 28.7 pg (27-33); Mean Corpuscular Volume 91.5 fl (85-98); Mean Platelet Volume 9.2 fL (7.4-10.4); Monocytes # 0.8 10^3/uL (0.2-0.9); Monocytes % 11.7 %; Neutrophils # 3.06 10^3/uL (1.8-7.7); Neutrophils % 47.7 %; Nucleated Red Blood Cells % 0 %; Platelet Count 304 10^3/cmm (157-399); Red Blood Count 3.52 10^6/uL (3.85-5.65); Red Cell Distribution Width 13.7 % (12.1-15.1)
[2023-06-22 04:42] LABS: Anion Gap 13.1 (5-19); Blood Urea Nitrogen 12 mg/dL (8-23); Calcium 9.1 mg/dL (8.5-10.5); Carbon Dioxide 24 mmol/L (22-29); Chloride 97 mmol/L (98-107); Creatinine Clr Calc Pharmacy 64.3288; Glomerular Filtration Rate 71.8 mL/min (90-130); Glucose 106 mg/dL (65-115); Osmolality Calculated 270 mOsm/kg (285-295); Potassium 4.1 mmol/L (3.5-5.1); Sodium 130 mmol/L (136-145)
[2023-06-22] MEDS: metoprolol tartrate 50 mg Tablet PO (05:31)
[2023-06-22] MEDS: acetaminophen 325 mg Tablet 650 MG PO (08:24)
[2023-06-22] MEDS: levothyroxine 25 mcg Tablet 50 MCG PO (08:24)
[2023-06-22] MEDS: quetiapine 100 mg Tablet PO (08:25)
[2023-06-22] MEDS: lisinopril 20 mg Tablet 40 MG PO (08:25)
[2023-06-22] MEDS: atorvastatin 40 mg Tablet 80 MG PO (08:25)
[2023-06-22] MEDS: multivitamin therapeutic Tablet 1 TAB PO (08:25)
[2023-06-22] MEDS: ferrous sulfate EC 325 mg Tablet PO (08:25)
[2023-06-22] MEDS: hyDRALAzine 50 mg Tablet PO (08:25)
[2023-06-22] MEDS: NIFEdipine ER (24 hr) 30 mg Tablet 60 MG PO (08:25)
[2023-06-22] MEDS: aspirin 81 mg EC Tablet PO (08:25)
--- NOTE | 2023-06-22 09:30 | USCV_ITS ---
Trish Rocha Age: 67 Gender: F : 1955 Exam Date: 06/22/2023 09:59 Ordering Phys: Shawn Campos MD Technologist: Exam Location: [facility] [place] Indication: a flutter BP: 161 / 81 HR: 60 Rhythm: Sinus Technical Quality: Good MEASUREMENTS (Male / Female) Normal Values 2D ECHO LV Diastolic Diameter PLAX 4.3 cm 4.2 - 5.9 / 3.9 - 5.3 cm IVS Diastolic Thickness 1.1 cm 0.6 - 1.0 / 0.6 - 0.9 cm IVS Systolic Thickness 1.4 cm LVPW Diastolic Thickness 1.3 cm 0.6 - 1.0 / 0.6 - 0.9 cm LVPW Systolic Thickness 1.4 cm LVOT Diameter 2.1 cm LV Ejection Fraction 2D Teich 64.8 % LV Ejection Fraction MOD 2C 63.9 % LV Ejection Fraction 2C AL 63.1 % LA Diameter 3.1 cm RA Systolic Volume 4C AL 37.4 ml RA Systolic Volume 4C MOD 36.1 ml Aorta at Sinotubular Diameter 2.0 cm M-MODE LA Ao Ratio MM 1.0 AV Cusp Separation MM 2.1 cm DOPPLER AV Peak Velocity 206.0 cm/s LVOT Peak Velocity 138.0 cm/s AV Area Cont Eq vti 2.6 cm squared AV Area Cont Eq pk 2.3 cm squared MV Area PHT 3.1 cm squared Mitral E to A Ratio 1.2 TV Peak Velocity 287.5 cm/s TR Peak Velocity 325.0 cm/s TR Peak Gradient 42.3 mmHg TV Peak E Velocity 154.0 cm/s Right Atrial Pressure 3.0 mmHg Pulmonary Artery Systolic Pressu 45.3 mmHg PV Peak Velocity 152.0 cm/s FINDINGS Left Ventricle Normal left ventricular size and systolic function, EF 64%.Grade III/IV diastolic dysfunction (restrictive filling pattern), severely elevated filling pressures. Right Ventricle The right ventricle is normal in size and function. Right Atrium The right atrium is normal in size. Left Atrium Moderately increased left atrial size. Mitral Valve Moderate mitral annular calcification. Mild-moderate mitral valve regurgitation. Aortic Valve Thickened aortic valve. Tricuspid Valve Mild tricuspid valve regurgitation. Pulmonic Valve No gross abnormalities noted Pericardium Normal pericardium without effusion. Aorta Normal ascending aorta dimension. IVC Inferior vena cava not visualized. CONCLUSIONS Normal left ventricular size and systolic function, EF 64%.Grade III/IV diastolic dysfunction (restrictive filling pattern), severely elevated filling pressures. Moderately increased left atrial size. Moderate mitral annular calcification. Mild-moderate mitral valve regurgitation. Features of aortic valve sclerosis Mild tricuspid valve regurgitation. Estimated pulmonary artery peak systolic pressure 45 mmHg There is no pericardial effusion. There are no intracardiac masses. Compared to the study from 10/17/2022, there may not be a significant change Dr Jean Claude Crow MD [facility] (Electronically Signed) Final Date: 22 June 2023 11:26 S
--- NOTE | 2023-06-22 09:46 | PC.CHAP ---
Pastoral Care Encounter/Spiritual Assessment Type of Contact [] Declined pot lining supervisor visit [] Patient/Family/Request visit [] Outpatient visit [] Follow-up visit [] Physician referral [] Code/Alert [x] Routine visit [] Staff referral [] Actively dying [] Patient sleeping [] Family support [] [] Out of room [] Palliative care [] [] Receiving care in room [] Pre-surgical visit [] Trauma [] Long length of stay [] ICU visit [] Other: Relational/Emotional Strength [] Patient feels connected with others/family/visitors/staff [] Distress [] Loneliness/isolation [] Abandonment Spirituality of Patient [x] Person of Brit [x] Attends Protestant of their Brit [x] Believes in Prayer [x] Reads Bible or Buddhist materials [] There are Spiritual issues to be addressed Commercial Installer Interventions [x] Prayer [x] Active listening [] Non-anxious presence [] Spiritual/emotional support [] Crisis/trauma care [] Spiritual counseling [] Bereavement support [] Provided bereavement packet [x] Provided Bible/devotional materials [] Provided toy/stuffed animal, coloring book to patient or family member [] Provided Communion [] Anointing/[place] [] Salvation [x] Completed spiritual assessment [] Other: Impact on Illness or Injury [] Angry [] Fearful [] Anxious [] Often cries [] Exhaustion [] Unable to work [] Unable to attend zoroastrianism [] Unable to walk/stand [] Unable to read [] Unable to drive [] Unable to eat/drink [] Unable to sleep [] Unable to be with family [] Patient intubated [] Other: Summary Time spent with patient 15min
--- NOTE | 2023-06-22 11:21 | P.DS_ITS ---
Discharge Providers Date of Admission: 06/21/23 15:47 Date of Discharge: June 22, 2023 Attending Provider at Admission: Shawn Campos MD Attending Provider at Discharge: Shawn Campos MD Primary Care Provider: Obey Rose MD Diagnoses at Discharge Discharge Diagnosis (1) Withdrawal from benzodiazepine: Status: Acute (2) Atrial flutter: Status: Acute (3) Anxiety: Status: Acute (4) Hypertension: Status: Acute Qualifiers: Hypertension type: unspecified Qualified Code(s): I10 - Essential (primary) hypertension (5) Hypercholesterolemia: Status: Acute (6) Diabetes: Status: Acute (7) Hypothyroidism: Status: Acute (8) Hyponatremia: Status: Acute Reason for Visit Reason for Visit: chest pains Hospital Course Hospital Course Trish Rocha is a 67 year old female with a past medical history of hypertension hyperlipidemia, diet-controlled type 2 diabetes mellitus, hypothyroidism, history of gastric bypass, who presents to [facility] due to shortness of breath, chest palpitations, patient currently is alert oriented x 4, following all commands her speech is very pressured, she frequently requires redirection in, a bit forgetful, mild tremor, no focal neurologic deficits no slurring her words no facial droop no focal weakness, currently heart rates are in the 130s on the monitor looks like sinus tachycardia, hypertensive blood pressure 160s over 90s, on room air, patient's is at bedside. Patient tells me that roughly 3 weeks ago she she has been under a lot of stress, her mom was sick in the hospital, her father who has end-stage cancer, currently has had worsening of his condition, on hospice, she has been dealing with a lot of stress, she takes alprazolam 1 mg every 8 hours, she has been doing that for the last 30 years due to the stress she has been using it every 6 hours, however recently in the last 3 to 4 days she was worried that she was taking too much so she cut down the dose, she was taking a half a milligram in the morning and 1 mg in the afternoon, she tells me that since then she has been having chest pain, chest palpitations and shortness of breath, no lower extremity edema, no cough, no fevers, no chills, no hemoptysis, no calf pain, no calf swelling, denies any visual auditory or tactile hallucinations does report poor appetite Patient was admitted to [facility] for withdrawal from Xanax, she resumed her home Xanax, her anxiety her palpitations, her pressured speech, shortness of breath resolved. Patient was advised that she should continue her home dose of alprazolam, to not suddenly stop medication and do not try to taper medication unless she speaks to her outpatient primary care physician. As she is going through a lot of social issues right now, I would recommend for her to at least for now continue her home dose During hospitalization initially patient was brought in for atrial fibrillation/atrial flutter, patient was coming in and out of atrial flutter, during my examination she is more in sinus tachycardia, but at home she notes that her heart rates were in the 160s, in the ER she was in atrial flutter with heart rates in the 140s, I continued her home metoprolol but I split the doses to 50 twice daily, during her hospitalization she remains in sinus rhythm, heart rates in the 60s,. I think a significant opponent of her atrial fibrillation/atrial flutter was likely withdrawal from her Xanax. However she could concomitantly atrial flutter/atrial fibrillation, given her high Paul Vascor of 4, will start her on anticoagulation Eliquis 5 mg twice daily, discharged with event monitor in place, follow-up with cardiology in a month. I had a detailed discussion with her about the risk and benefits of anticoagulant therapy, shared decision making, she voiced understanding, all question answered, agreed to proceed, monitor for bloody or black stools, major falls, head trauma if so go to emergency room. Physical Exam Const: COMMON NORMALS: no acute distress and patient oriented x3 Resp: COMMON NORMALS: normal respiratory effort, No retractions, No use of accessory muscles and clear to auscultation bilaterally AUSCULTATION: clear to auscultation bilaterally Cardio: COMMON NORMALS: regular rate, regular rhythm, S1 normal heart sound present and S2 normal heart sound present RATE: regular rate RHYTHM: r egular rhythm HEART SOUNDS: S1 normal heart sound present and S2 normal heart sound present GI: COMMON NORMALS: Normal to inspection, nondistended, normoactive bowel sounds present and non-tender Extremity: COMMON NORMALS: no pedal edema Neuro: COMMON NORMALS: patient oriented x3 Psych: COMMON NORMALS: mental status grossly normal Discharge Data Studies Completed and Pending Completed Studies During Hospitalization Category Date Time Status XR chest 1V portable [id number] Stat Exams 06/21/23 14:04 Completed Pending at discharge Category Date Time Status Basic Metabolic Panel AM LABS Lab 06/23/23 04:00 Ordered Basic Metabolic Panel AM LABS Lab 06/24/23 04:00 Ordered CV. echo complete* [id number] Routine Ultrasound 06/22/23 09:30 Taken Radiology Impressions Chest X-Ray 06/21/23 14:04 IMPRESSION: 1. No acute cardiopulmonary process. 2. Incidental/nonacute findings are listed in the report. Laboratory Results WBC 6.40 10^3/uL (3.29-11.43) 06/22/23 03:05 RBC 3.52 10^6/uL (3.85-5.65) L 06/22/23 03:05 Hgb 10.10 g/dL (11.27-16.99) L 06/22/23 03:05 Hct 32.2 % (36-47) L 06/22/23 03:05 MCV 91.5 fl (85-98) 06/22/23 03:05 MCH 28.7 pg (27-33) 06/22/23 03:05 MCHC 31.4 g/dL (30-55) D 06/22/23 03:05 RDW 13.7 % (12.1-15.1) 06/22/23 03:05 Plt Count 304 10^3/cmm (157-399) 06/22/23 03:05 MPV 9.2 fL (7.4-10.4) 06/22/23 03:05 Neut % (Auto) 47.7 % 06/22/23 03:05 Lymph % (Auto) 38.0 % 06/22/23 03:05 [place] % (Auto) 11.7 % 06/22/23 03:05 Eos % (Auto) 2.2 % 06/22/23 03:05 Baso % (Auto) 0.2 % 06/22/23 03:05 Neut # (Auto) 3.06 10^3/uL (1.8-7.7) 06/22/23 03:05 Lymph # (Auto) 2.4 10^3/uL (0.8-4.8) 06/22/23 03:05 [place] # (Auto) 0.8 10^3/uL (0.2-0.9) 06/22/23 03:05 Eos # (Auto) 0.1 10^3/uL (0.0-0.8) 06/22/23 03:05 Baso # (Auto) 0.0 10^3/uL (0.0-0.1) 06/22/23 03:05 Nucleated RBC % (auto) 0 % 06/22/23 03:05 Nucleated RBCs # 0.0 /100WBC 06/22/23 03:05 Sodium 130 mmol/L (136-145) L 06/22/23 03:05 Potassium 4.1 mmol/L (3.5-5.1) 06/22/23 03:05 Chloride 97 mmol/L (98-107) L 06/22/23 03:05 Carbon Dioxide 24 mmol/L (22-29) 06/22/23 03:05 Anion Gap 13.1 (5-19) 06/22/23 03:05 BUN 12 mg/dL (8-23) 06/22/23 03:05 Creatinine 0.8 mg/dL (0.5-0.9) 06/22/23 03:05 GFR Calculation 71.8 mL/min (90-130) L 06/22/23 03:05 Glucose 106 mg/dL (65-115) 06/22/23 03:05 Estimat Average Glucose 88 06/21/23 14:09 Hemoglobin A1c 4.7 % (4.0-6.0) 06/21/23 14:09 Calculated Osmolality 270 mOsm/kg (285-295) L 06/22/23 03:05 Calcium 9.1 mg/dL (8.5-10.5) 06/22/23 03:05 Magnesium 1.7 mg/dL (1.7-2.3) 06/21/23 14:09 Total Bilirubin 0.6 mg/dL (0.15-1.2) 06/21/23 14:09 AST 17 U/L (0-32) 06/21/23 14:09 ALT 15 U/L (0-33) 06/21/23 14:09 Alkaline Phosphatase 50 U/L (35-105) 06/21/23 14:09 Troponin T Baseline 7 ng/L (0-10) 06/21/23 14:09 Troponin T 120 Minute 11.40 ng/L (0-10) H 06/21/23 18:03 Delta Troponin T 4.40 ABS# (0-10) 06/21/23 18:03 Troponin T Hi Sens 6Hr 15.59 ng/L (0-10) H 06/21/23 22:00 Troponin T Hi Sens 6Hr Delta 8.59 ng/L (0-12) 06/21/23 22:00 NT-Pro-B Natriuret Pep 254 pg/mL (0-125) H 06/21/23 14:09 Total Protein 7.2 g/dL (6.6-8.7) 06/21/23 14:09 Albumin 4.5 g/dL (3.5-5.2) 06/21/23 14:09 Globulin 2.7 g/dL (1.3-4.6) 06/21/23 14:09 Triglycerides 50 mg/dL (0-150) 06/21/23 14:09 Cholesterol 122 mg/dL (0-200) 06/21/23 14:09 LDL Cholesterol, Calc 54 mg/dL (50-129) 06/21/23 14:09 HDL Cholesterol 58 mg/dL (60-100) L 06/21/23 14:09 LDL/HDL Ratio 0.93 RATIO (0.00-3.22) 06/21/23 14:09 Cholesterol/HDL Ratio 2.10 mg/dL (0.0-4.40) 06/21/23 14:09 TSH 1.53 uIU/mL (0.27-4.20) 06/21/23 14:09 TSH 1.53 uIU/mL (0.27-4.20) 06/21/23 14:09 Free T4 1.40 ng/dL (0.82-1.77) 06/21/23 14:09 Free T3 2.4 PG/ML (2.0-4.4) 06/21/23 14:09 Urine Color Yellow (Yellow) 06/21/23 17:00 Urine Appearance Clear (CLEAR) 06/21/23 17:00 Urine pH 8 (5-7) H 06/21/23 17:00 Ur Specific Dwarf 1.010 (1.005-1.030) 06/21/23 17:00 Urine Protein Neg (Negative) 06/21/23 17:00 Urine Glucose (UA) Norm (Normal) 06/21/23 17:00 Urine Ketones 1+ (Negative) H 06/21/23 17:00 Urine Blood Neg (Negative) 06/21/23 17:00 Urine Nitrate Negative (Negative) 06/21/23 17:00 Urine Bilirubin Neg (Negative) 06/21/23 17:00 Prot Sulfosalicylic Acd Negative (Negative) 06/21/23 17:00 Urine Urobilinogen Norm mg/dL (Negative) 06/21/23 17:00 Ur Leukocyte Esterase Negative (Negative) 06/21/23 17:00 Urine Opiates Screen Negative ng/mL (Negative) 06/21/23 17:00 Ur Barbiturates Screen Negative ng/mL (Negative) 06/21/23 17:00 Ur Phencyclidine Scrn Negative ng/mL (Negative) 06/21/23 17:00 Ur Amphetamines Screen Negative ng/mL (Negative) 06/21/23 17:00 U Benzodiazepines Scrn Positive ng/mL (Negative) H 06/21/23 17:00 Urine Cocaine Screen Negative ng/mL (Negative) 06/21/23 17:00 U Marijuana (THC) Screen Positive ng/mL (Negative) H 06/21/23 17:00 Ethyl Alcohol < 10 mg/dL (0-10) 06/21/23 14:09 Vitals Last Vital Signs Temp 98.2 F 06/22/23 03:56 Pulse 67 06/22/23 10:49 Resp 18 06/22/23 10:49 BP 161/81 06/22/23 10:07 Pulse Ox 92 06/22/23 10:49 O2 Del Method Room Air 06/22/23 10:49 Discharge Plan Discharge Patient Disposition: Home Condition: Stable Prescriptions: New metoprolol tartrate 50 mg Tablet 50 mg PO Q12H 30 Days Qty: 60 0RF spironolactone 25 mg tablet 25 mg PO DAILY 30 Days Qty: 30 0RF Eliquis 5 mg tablet 5 mg PO BID 30 Days Qty: 60 0RF Continued omega 9-cii-alf-fish oil [Fish Oil] 1,000 mg (120 mg-180 mg) capsule 1 cap PO DAILY levothyroxine 25 mcg tablet 50 mcg PO DAILY quetiapine [Seroquel] 100 mg tablet 100 mg PO BID fluticasone propionate 50 mcg/actuation spray,suspension 2 spray intranasal DAILY Qty: 16 11RF alprazolam 1 mg tablet 1 mg PO TID Qty: 90 3RF famotidine [Pepcid] 20 mg tablet 20 mg PO BID Qty: 180 11RF magnesium oxide 400 mg (241.3 mg magnesium) tablet 400 mg PO DAILY Qty: 10 3RF atorvastatin 80 mg tablet 80 mg PO DAILY Benadryl 25 mg Capsule 25 mg PO TID PRN (Reason: ALLERGIES) Claritin 10 mg Tablet 10 mg PO DAILY nifedipine 60 mg tablet extended release 24hr 60 mg PO DAILY trazodone 100 mg tablet 100 mg PO BEDTIME ferrous sulfate 325 mg (65 mg iron) tablet 325 mg PO DAILY hydralazine 50 mg tablet 50 mg PO TID lisinopril 40 mg tablet 40 mg PO DAILY Discontinued metoprolol succinate 100 mg tablet extended release 24 hr 100 mg PO DAILY Qty: 30 11RF Discharge Orders: Discharge Order (Routine); Ordered 06/22/23 Ordered By: Shawn Campos Other Ambulatory Orders: MCT/Event Monitor 30 Days (Routine) Timeframe: 1 Day Facility: [facility] - Location: Radiology Ordered By: Shawn Campos Referrals: Jean Claude Crow MD [Physician] - 1 month Will Cristobal MD [Physician] - 1 week Obey Rose MD [Primary Care Provider] - 1-3 days Discharge Diet: Cardiac Discharge Activity: Resume usual activity Patient Instructions: Opioid Safety, Atrial Flutter (DC), Apixaban (By mouth) (Eliquis) Activity Restrictions/Additional Instructions: - Please see your primary care provider in the next few days to recheck your hemoglobin, check your sodium levels -Please take alprazolam as prescribed -Do not stop taking this medication due to risk of withdrawals do not taper unless you speak to your primary care provider -I have discharged on Eliquis 5 mg twice daily due to your stroke risk with your atrial fib/atrial flutter, if you develop bloody or black stools or we have a major fall or hit your head please go to the emergency room as he is on powerful blood thinners -Metoprolol 50 twice daily, nifedipine 60 mg daily Discharge Attestations Time Spent in Discharge Care*: greater than 30 min Quality Metrics Clinical Quality Measures [ No reported AMI, CVA or VTE this stay] Coding Level of Care Code 31100 Total time (in minutes) for Discharge: 45 Diagnoses Withdrawal from benzodiazepine F13.939 Atrial flutter I48.92 Anxiety F41.9 Essential hypertension I10 Hypertension type: unspecified Hypercholesterolemia E78.00 Diabetes E11.9 Hypothyroidism E03.9 Hyponatremia E87.1
[2023-06-22] MEDS: apixaban 5 mg Tablet PO (11:48)
--- NOTE | 2023-06-22 12:30 | PC.NURSE ---
Discharge Note Patient discharged to home via POV accompanied by spouse. Discharge instructions reviewed with patient and/or indirect sales representative. Mobile pharmacy medications and/or prescriptions provided. Belongings/home medications returned.
== END 2023-06-22 14:45 | disposition home or self-care (01) | DRG 897 ==
LOC: ER 14:13 → CSU 16:10
PROVIDERS: Admitting Provider Family Medicine; Emergency Provider Family Medicine; PCP Family Medicine; Visit Provider Family Medicine
DX: F13.939 Sedative, hypnotic or anxiolytic use, unspecified with withdrawal, unspecified (principal); I48.92 Unspecified atrial flutter; E87.1 Hypo-osmolality and hyponatremia; F41.9 Anxiety disorder, unspecified; I10 Essential (primary) hypertension; E78.00 Pure hypercholesterolemia, unspecified; E11.9 Type 2 diabetes mellitus without complications; E03.9 Hypothyroidism, unspecified; Z98.84 Bariatric surgery status; Z87.891 Personal history of nicotine dependence
CPT/HCPCS: 36415; 71045; 80048; 80053; 80061; 80306; 80307; 81003; 83036; 83735; 83880; 84439; 84443; 84481; 84484; 85025; 93005; 93306; 94664; 96372; 96376; 99285; C9113; J1650

== ENCOUNTER → 2023-06-30 13:52 | Outpatient (BNVA) | payer MEDICARE, SELFPAY | PROVIDERS: PCP Family Medicine; Visit Provider Family Medicine | DX: D64.9 Anemia, unspecified (principal); E87.1 Hypo-osmolality and hyponatremia | CPT/HCPCS: 80048; 85025 ==

== ENCOUNTER → 2023-07-15 12:09 | Outpatient (BNVA) | payer MEDICARE, SELFPAY | PROVIDERS: PCP Family Medicine; Visit Provider Family Medicine | DX: N30.00 Acute cystitis without hematuria (principal) | CPT/HCPCS: 81003 ==

== ENCOUNTER → 2023-07-30 10:34 | Outpatient (BNVA) | payer MEDICARE, SELFPAY | PROVIDERS: PCP Family Medicine; Visit Provider Physician Assistant | DX: M67.911 Unspecified disorder of synovium and tendon, right shoulder (principal); M67.912 Unspecified disorder of synovium and tendon, left shoulder | CPT/HCPCS: 20610; 73030; 99213; J3301 ==

== ENCOUNTER → 2023-08-03 12:38 | Outpatient (BNVA) | payer MEDICARE, SELFPAY | PROVIDERS: PCP Family Medicine; Visit Provider Nurse Practitioner Family | DX: Z09 Encounter for follow-up examination after completed treatment for conditions other than malignant neoplasm (principal) | CPT/HCPCS: 99213 ==

== ENCOUNTER 2023-08-08 11:03 | Emergency (ER) | payer MEDICARE, SELFPAY ==
[2023-08-08 11:12] VITALS: BP 105/59; PULSE 94; RESP 16; TEMP 36.6; O2SAT 94
--- NOTE | 2023-08-08 12:17 | ECG_ITS ---
[facility] Test Date: 2023-08-08 Pat Name: Trish Rocha Department: Room: Gender: Female Vest Maker: : 1955 Requested By: Wyatt Ragsdale Order Number: [id number] Micah MD: Jean Claude Crow M.D. Measurements Intervals Amo Rate: 96 P: 61 NM: 141 QRS: 38 QRSD: 86 T: 48 QT: 337 QTc: 428 Interpretive Statements SINUS RHYTHM Compared to ECG 06/21/2023 21:40:57 Sinus bradycardia no longer present Electronically Signed On 08-09-2023 20:16:39 CDT by Jean Claude Crow M.D. [id number]
--- NOTE | 2023-08-08 12:18 | W.ED.ANXIETY ---
HPI - Anxiety General: Chief Complaint: Anxiety Stated Complaint: chest pain Time Seen by Provider: 08/08/23 11:56 History of Present Illness: Presents to the ER by stopping her Xanax cold turkey approximately 4 days ago. Patient says she been on them for 30 years. Patient also says normally she should take 1 mg 3 times a day and she got to where she was taking up to 6 of them a day and therefore she ran out early she tried to get them filled sometime last week at [facility] here in [facility] and he said she was 13 days early. Patient normally sees Dr. Messer. Patient has not seen Dr. Messer for this. Patient wants off of the medicines. Patient has been having palpitations for the last couple days. And is more anxious than normal. Review of Systems General: Reports: 10 or more systems reviewed and unremarkable except in HPI and below PFSH ED PFSH: Medical History Anxiety Hypothyroidism Diabetes Hypercholesterolemia Syncope Urgency of urination Hypertension Surgical History H/O gastric bypass Family History Grandmother Cancer Hyperlipidemia Hypertension Mother Hypertension CAD (coronary artery disease) unknown age of onset Denies family history of Diabetes Clotting disorder Dementia Chronic kidney disease (CKD) Suicide Anesthesia complication Bleeding disorder Lung disease Stroke Social History Smoking and tobacco/nicotine status: former use of tobacco/nicotine Alcohol intake: never Substance/Drug Use: never Marital status: Physical Exam Const: COMMON NORMALS: no acute distress, average body habitus, patient oriented x3, no limitations, healthy appearing, alert and well nourished HENMT: COMMON NORMALS: normocephalic, atraumatic, hearing grossly normal bilaterally, external ears normal, Normal external nose present and moist oral mucous membranes HEAD & SCALP: normocephalic and atraumatic NOSE: Normal external nose present EXTERNAL EAR: Yes external ears normal Neck/C-Spine: COMMON NORMALS: no JVD Chest: COMMONS NORMALS: normal inspection of the chest and normal palpation of entire chest wall Resp: COMMON NORMALS: normal respiratory effort, No retractions, No use of accessory muscles and clear to auscultation bilaterally AUSCULTATION: clear to auscultation bilaterally Cardio: COMMON NORMALS: no JVD, regular rate, regular rhythm, S1 normal heart sound present, S2 normal heart sound present, No gallops present (Cardio), No clicks present (Cardio), No murmurs present (Cardio) and No rub (Cardio) RATE: regular rate RHYTHM: regular rhythm HEART SOUNDS: S1 normal heart sound present and S2 normal heart sound present GI: COMMON NORMALS: Normal to inspection, nondistended, normoactive bowel sounds present, Soft to palpation, non-tender, No hepatosplenomegaly present and no masses PALPATION: Yes Soft to palpation and Yes No hepatosplenomegaly present Neuro: COMMON NORMALS: patient oriented x3 SENSORIUM/ORIENTATION: Yes alert Course Vital Signs: Vital signs: Vital Signs Temperature 97.9 F 08/08/23 11:12 Pulse Rate 94 08/08/23 11:12 Respiratory Rate 16 08/08/23 11:12 Blood Pressure 105/59 08/08/23 11:12 Pulse Oximetry 94 08/08/23 11:12 Oxygen Delivery Me thod Room Air 08/08/23 11:12 MDM - Anxiety Medical Decision Making Patient presents to the ER with complaints of withdrawal symptoms from her Xanax. Patient will be placed back on Xanax at tapering dose over about the next several weeks. Patient to follow-up with PCP. EKG was obtained which showed normal sinus rhythm. Differential Diagnosis Likely acute anxiety (Benzodiazepine withdrawal) Medical Records I reviewed the patient's medical records. Lab Data I reviewed the patient's lab results. No radiology studies performed this visit EKG Data EKG 1: I personally reviewed and interpreted this EKG as follows: EKG interpretation date: 08/08/23 EKG interpretation time: 13:20 Interpretation: Ventricular rate 96 bpm, IL interval 141, QRS duration 86, QTc of 391, sinus rhythm, Discharge Plan Discharge Patient Disposition: Home Clinical Impression: Acute anxiety, Benzodiazepine withdrawal Condition: Stable Prescriptions: New Xanax 1 mg tablet See Rx Instructions .ROUTE .COMPLEX Qty: 42 0RF Rx Instructions: Wants 1 mg 3 times a day for 7 days then 1 mg 2 times a day for 14 days then 1 mg 1 time a day for 14 days No Action metoprolol tartrate 25 mg tablet 25 mg PO BID Qty: 180 1RF metoprolol succinate 50 mg tablet extended release 24 hr 50 mg PO DAILY Qty: 30 11RF Eliquis 2.5 mg tablet 2.5 mg PO BID Qty: 60 11RF quetiapine [Seroquel] 100 mg tablet 100 mg PO BID fluticasone propionate 50 mcg/actuation spray,suspension 2 spray intranasal DAILY Qty: 16 11RF famotidine [Pepcid] 20 mg tablet 20 mg PO BID Qty: 180 11RF magnesium oxide 400 mg (241.3 mg magnesium) tablet 400 mg PO DAILY Qty: 10 3RF alprazolam 1 mg tablet 1 mg PO TID 30 Days Qty: 90 5RF atorvastatin 80 mg tablet 80 mg PO DAILY Qty: 90 3RF hydralazine 50 mg tablet 75 mg PO TID Qty: 90 11RF levothyroxine 25 mcg tablet 50 mcg PO DAILY Qty: 90 11RF Benadryl 25 mg Capsule 25 mg PO TID PRN (Reason: ALLERGIES) Claritin 10 mg Tablet 10 mg PO DAILY nifedipine 60 mg tablet extended release 24hr 60 mg PO DAILY trazodone 100 mg tablet 100 mg PO BEDTIME ferrous sulfate 325 mg (65 mg iron) tablet 325 mg PO DAILY lisinopril 40 mg tablet 40 mg PO DAILY Discharge Orders: Discharge ED (Routine); Ordered 08/08/23 Ordered By: Wyatt Ragsdale Referrals: Obey Rose MD [Primary Care Provider] - 1 week Patient Instructions: Anxiolysis in Adults (ED) Activity Restrictions/Additional Instructions: Please do not stop your benzodiazepines, Xanax, without proper instructions from a physician as this may be fatal. Please follow-up with your family practice physician within the next 7 to 10 days for further evaluation and treatment. Otherwise please follow the tapering instructions on your Xanax bottle from the emergency room. Coding Level of Care Code ED Screen Operator for Mayela Jacobsen
== END 2023-08-08 13:46 | disposition home or self-care (01) ==
PROVIDERS: Emergency Provider Emergency Medicine; PCP Family Medicine
DX: F41.9 Anxiety disorder, unspecified (principal); F19.239 Other psychoactive substance dependence with withdrawal, unspecified; Z79.01 Long term (current) use of anticoagulants; E11.9 Type 2 diabetes mellitus without complications; I10 Essential (primary) hypertension; Z87.891 Personal history of nicotine dependence
CPT/HCPCS: 93005; 99283

== ENCOUNTER 2023-08-20 09:54 | Outpatient (CLI) | payer MEDICARE, SELFPAY ==
--- NOTE | 2023-08-20 10:15 | MR_ITS ---
WS: [id number] MRI LEFT SHOULDER NONCONTRAST TECHNIQUE: Sagittal T2, coronal T1, T2 and proton density imaging. Axial gradient PDE imaging. CLINICAL INFORMATION: left shoulder pain COMPARISON: None. FINDINGS: Advanced arthritis of the AC joint with small amount of fluid and edema. Complete loss of the subacro mial space. Small amount of subacromial subdeltoid fluid. Small amount of fluid in the AC joint. Syno vial thickening at the AC joint. High-grade tear of the supraspinatus with retraction to the level of the glenohumeral joint. High-grade tear of the infraspinatus with retraction to the level of the gle nohumeral joint. Atrophy of the supraspinatus and infraspinatus muscle belly. Teres minor appears int act. Small joint effusion. Subscapularis appears intact with thinning of the distal tendon. Tear of the tr ansverse humeral ligament. Biceps tendon not well visualized in the bicipital groove likely chronical ly torn. Intra-articular biceps tendon not well visualized and likely chronically torn. Advanced join t narrowing of the glenohumeral articulation. Degenerative fraying and thinning of the glenoid labrum . MR/MR shoulder LT wo con* [id number] IMPRESSION: 1. Advanced arthritis AC joint with complete loss of the subacromial space. 2. High-grade tears of the supraspinatus and infraspinatus with retraction to the level of the glenohumeral joint. This appears chronic. 3. Teres minor appears intact. 4. Subscapularis appears appears intact with thinning of the distal ligament. Chronic tear of the transverse humeral ligament with absent biceps tendon. 5. Small joint effusion. 6. Advanced degenerative narrowing of the glenohumeral articulation.
== END 2023-08-20 09:55 | disposition home or self-care (01) ==
PROVIDERS: PCP Family Medicine; Visit Provider Physician Assistant
DX: S46.012A Strain of muscle(s) and tendon(s) of the rotator cuff of left shoulder, initial encounter (principal); M67.912 Unspecified disorder of synovium and tendon, left shoulder; M19.012 Primary osteoarthritis, left shoulder
CPT/HCPCS: 73221

== ENCOUNTER → 2023-08-25 11:07 | Outpatient (BNVA) | payer MEDICARE, SELFPAY | PROVIDERS: PCP Family Medicine; Visit Provider Student in an Organized Health Care Education/Training Program | DX: M75.102 Unspecified rotator cuff tear or rupture of left shoulder, not specified as traumatic (principal); M75.42 Impingement syndrome of left shoulder; M19.012 Primary osteoarthritis, left shoulder | CPT/HCPCS: 99214 ==

== ENCOUNTER → 2023-09-04 10:33 | Outpatient (BNVA) | payer MEDICARE, SELFPAY | PROVIDERS: PCP Family Medicine; Visit Provider Family Medicine | DX: Z01.818 Encounter for other preprocedural examination (principal); E11.9 Type 2 diabetes mellitus without complications; N18.9 Chronic kidney disease, unspecified | CPT/HCPCS: 80048; 81003; 85025 ==

== ENCOUNTER 2023-09-16 03:32 | Emergency (ER) | payer MEDICARE, SELFPAY ==
[2023-09-16 03:45] VITALS: BP 140/75; PULSE 75; RESP 18; TEMP 36.8; O2SAT 97; BMI 29.2
--- NOTE | 2023-09-16 03:48 | XRR_ITS ---
PROCEDURE INFORMATION: Exam: XR Left Shoulder Exam date and time: 09/16/2023 3:51 AM Age: 67 years old Clinical indication: Other: Dislocation; Additional info: Roled over inbed heard a pop, probable dislocation TECHNIQUE: Imaging protocol: Radiologic exam of the left shoulder. Views: 2 or more views. COMPARISON: CR XR chest 1V portable [id number] 06/21/2023 2:15 PM FINDINGS: Bones/joints: Anterior inferior dislocation. Well ossified bodies appreciated at the inferior glenoid which is likely result of osteoarthritis, less likely represent acute traumatic avulsion given appearance. Vasculature: Calcified atherosclerotic disease of the aortic arch, severe. Soft tissues: Normal. XR/XR shoulder LT min 2V* [id number] IMPRESSION: 1. Anterior inferior dislocation without clear osseous fragmentation. Re-evaluation upon reduction is recommended. 2. Additional findings as above.
[2023-09-16] MEDS: midazolam 1 mg/mL INJ 2 mL 2 MG IVP (03:53)
[2023-09-16] MEDS: fentaNYL 50 mcg/mL INJ 2mL 100 MCG IVP (03:53)
[2023-09-16 04:04] VITALS: BP 100/74; PULSE 67; RESP 16; O2SAT 99
[2023-09-16] MEDS: ketamine 100 mg/mL Inj 5 mL 70 MG IVP (04:05)
--- NOTE | 2023-09-16 04:11 | XRR_ITS ---
PROCEDURE INFORMATION: Exam: XR Left Shoulder Exam date and time: 09/16/2023 4:13 AM Age: 67 years old Clinical indication: Other: Post reduction TECHNIQUE: Imaging protocol: Radiologic exam of the left shoulder. Views: 2 or more views. COMPARISON: CR (CHEST, ) 09/16/2023 3:51 AM FINDINGS: Bones/joints: Status post reduction. Osteoarthritis. Possible bony Bankart. No clear Hill-Sachs deformity. Soft tissues: Normal. XR/XR shoulder LT min 2V* [id number] IMPRESSION: Status post reduction with possible bony Bankart, although this may be osteoarthritis related axillary bodies. MRI can be obtained for definitive assessment.
[2023-09-16 04:30] VITALS: BP 132/73; PULSE 66; RESP 14; O2SAT 95
[2023-09-16 04:35] VITALS: BP 141/78; PULSE 70; RESP 16; TEMP 36.8; O2SAT 98
--- NOTE | 2023-09-16 04:38 | W.ED.EXTPRO ---
HPI - Extremity Problem General: Chief complaint: Extremity Injury, Upper Stated complaint: Left Arm Pain Time Seen by Provider: 09/16/23 03:41 History of Present Illness: Patient presents to the ER after rolling over in bed and feeling her left shoulder pop and having instantaneous pain. She thinks he dislocated it. Patient says she has bad shoulders bilateral and sees Dr. Saldivar and is going to have surgery on him pretty soon. There was no trauma other than rolling over. Patient is in exquisite pain. Patient has no other complaints in her shoulder. Review of Systems General: Reports: 10 or more systems reviewed and unremarkable except in HPI and below PFSH ED PFSH: Medical History Anxiety Hypothyroidism Diabetes Hypercholesterolemia Syncope Urgency of urination Hypertension Surgical History H/O gastric bypass Family History Grandmother Cancer Hyperlipidemia Hypertension Mother Hypertension CAD (coronary artery disease) unknown age of onset Denies family history of Diabetes Clotting disorder Dementia Chronic kidney disease (CKD) Suicide Anesthesia complication Bleeding disorder Lung disease Stroke Social History Smoking and tobacco/nicotine status: unknown if used tobacco/nicotine Alcohol intake: never Substance/Drug Use: never Marital status: Physical Exam Const: COMMON NORMALS: no acute distress, average body habitus, patient oriented x3, no limitations, healthy appearing, alert and well nourished HENMT: COMMON NORMALS: normocephalic, atraumatic, hearing grossly normal bilaterally, external ears normal, Normal external nose present, moist oral mucous membranes and oropharynx normal HEAD & SCALP: normocephalic and atraumatic NOSE: Normal external nose present EXTERNAL EAR: Yes external ears normal Neck/C-Spine: COMMON NORMALS: no JVD Chest: COMMONS NORMALS: normal inspection of the chest and normal palpation of entire chest wall Resp: COMMON NORMALS: normal respiratory effort, No retractions, No use of accessory muscles and clear to auscultation bilaterally AUSCULTATION: clear to auscultation bilaterally Cardio: COMMON NORMALS: no JVD, regular rate, regular rhythm, S1 normal heart sound present, S2 normal heart sound present, No gallops present (Cardio), No clicks present (Cardio), No murmurs present (Cardio) and No rub (Cardio) RATE: regular rate RHYTHM: regular rhythm HEART SOUNDS: S1 normal heart sound present and S2 normal heart sound present GI: COMMON NORMALS: Normal to inspection, nondistended, normoactive bowel sounds present, Soft to palpation, non-tender, No hepatosplenomegaly present and no masses PALPATION: Yes Soft to palpation and Yes No hepatosplenomegaly present Extremity: NARRATIVE EXTREMITY EXAM: Deformity of left shoulder joint region Limited range of motion secondary to pain probable anterior dislocation Neuro: COMMON NORMALS: patient oriented x3 SENSORIUM/ORIENTATION: Yes alert Procedures Orthopedic Joint Reduction Joint #1: Time Out Performed: Yes Side: left Joint Reduction Location: shoulder Analgesia: procedural sedation Shoulder Technique Used (if applicable): traction/counter-traction Technique used: traction/counter-traction and direct manipulation Post-reduction neuro exam: intact Post-reduction vascular: intact Post Reduction X-Ray Obtained: Yes Post Reduction X-Ray Results: reduced Splint Applied: Yes Patient Tolerated Procedure: well and no complications Procedural Sedation Indication: fracture/dislocation reduction Presedation Evaluation: Left anterior shoulder dislocation ASA Class: II Time of Last PO Intake: 18:30 Preparation: desk monitor applied, pulse oximeter, supplemental O2 applied, suction/airway equipment at bedside and IV secured Ketamine: IV Ketamine dose (mg): 70 Patient Tolerated Procedure: well and no complications Additional Comments: Upon arrival prior to sedation patient was given 100 mcg of fentanyl and 2 mg of Versed for pain control so we can get the initial x-ray. Course Vital Signs: Vital signs: Vital Signs Temperature 98.2 F 09/16/23 03:45 Pulse Rate 67 09/16/23 04:04 Respiratory Rate 16 09/16/23 04:04 Blood Pressure 100/74 09/16/23 04:04 Pulse Oximetry 99 09/16/23 04:04 Oxygen Delivery Me thod Nasal Cannula 09/16/23 04:04 Oxygen Flow Rate 2 09/16/23 04:04 MDM - Extremity (Nontraumatic) Medical Decision Making Patient initial x-ray showed anterior dislocation of the left shoulder. Patient was given 100 mcg of fentanyl for 2 mg of Versed so he can get this x-ray. Upon review of the x-ray patient was given 70 mg of ketamine and shoulder was reduced without complication. Patient was placed in a sling. Postreduction x-ray was taken which showed satisfactory reduction. Patient be discharged from the ER once sedation wears off. Patient already sees Dr. Saldivar we will have her call his office first thing in the morning to see about getting her appointment quicker. Medical Records I reviewed the patient's medical records. Lab Data I reviewed the patient's lab results. XR interpretation done by ED provider, pending radiology final review Discharge Plan Discharge Patient Disposition: Home Clinical Impression: Anterior dislocation of left shoulder Condition: Stable Prescriptions: No Action metoprolol tartrate 25 mg tablet 25 mg PO BID Qty: 180 1RF metoprolol succinate 50 mg tablet extended release 24 hr 50 mg PO DAILY Qty: 30 11RF Eliquis 2.5 mg tablet 2.5 mg PO BID Qty: 60 11RF quetiapine [Seroquel] 100 mg tablet 100 mg PO BID fluticasone propionate 50 mcg/actuation spray,suspension 2 spray intranasal DAILY Qty: 16 11RF famotidine [Pepcid] 20 mg tablet 20 mg PO BID Qty: 180 11RF atorvastatin 80 mg tablet 80 mg PO DAILY Qty: 90 3RF hydralazine 50 mg tablet 75 mg PO TID Qty: 90 11RF levothyroxine 25 mcg tablet 50 mcg PO DAILY Qty: 90 11RF lisinopril 40 mg tablet 40 mg PO DAILY Qty: 30 11RF magnesium oxide 400 mg (241.3 mg magnesium) tablet 400 mg PO DAILY Qty: 30 3RF loratadine [Claritin] 10 mg tablet 10 mg PO DAILY Qty: 30 11RF Benadryl 25 mg Capsule 25 mg PO TID PRN (Reason: ALLERGIES) nifedipine 60 mg tablet extended release 24hr 60 mg PO DAILY trazodone 100 mg tablet 100 mg PO BEDTIME ferrous sulfate 325 mg (65 mg iron) tablet 325 mg PO DAILY Discharge Orders: Discharge ED (Routine); Ordered 09/16/23 Ordered By: Wyatt Ragsdale Referrals: Obey Rose MD [Primary Care Provider] - 1 week Patient Instructions: Closed Reduction (ED), Dislocation - Shoulder, Moderate Sedation (ED) Activity Restrictions/Additional Instructions: Your initial x-ray showed you have an anterior shoulder dislocation, you are given medication for sedation, the reduction was reduced, the x-ray showed adequate reduction. You are placed in a sling. Please follow-up with Dr. Saldivar as you already has patient please call his office first thing in the morning to arrange an appointment preferably within next week. Coding Level of Care Code ED Family Practice Medical Doctor for Mayela Jacobsen
[2023-09-16 05:16] VITALS: BP 132/73; PULSE 59; RESP 16; TEMP 36.8; O2SAT 96
== END 2023-09-16 05:20 | disposition home or self-care (01) ==
PROVIDERS: Emergency Provider Emergency Medicine; PCP Family Medicine
DX: S43.005A Unspecified dislocation of left shoulder joint, initial encounter (principal); Z79.01 Long term (current) use of anticoagulants; E11.9 Type 2 diabetes mellitus without complications; I10 Essential (primary) hypertension; X50.9XXA Other and unspecified overexertion or strenuous movements or postures, initial encounter
CPT/HCPCS: 23650; 73030; 81000; 87086; 96374; 96375; 99152; 99285; J2250; J3010; J3490

== ENCOUNTER 2023-09-17 06:26 | Emergency (ER) | payer MEDICARE, SELFPAY ==
[2023-09-17 06:41] VITALS: BP 144/89; PULSE 88; RESP 22; TEMP 37.1; O2SAT 97; BMI 28.3
--- NOTE | 2023-09-17 06:51 | XRR_ITS ---
PROCEDURE INFORMATION: Exam: XR Left Shoulder Exam date and time: 09/17/2023 6:57 AM Age: 67 years old Clinical indication: Pain; Shoulder; Left TECHNIQUE: Imaging protocol: Radiologic exam of the left shoulder. Views: 2 or more views. COMPARISON: CR (CHEST, ) 09/16/2023 4:13 AM FINDINGS: Bones/joints: The left humeral head is dislocated anteriorly with respect to the glenoid. No definite fracture is appreciated. Small ossified densities along the inferior margin of the glenoid may represent loose bodies . The AC joint appears to be intact. Soft tissues: No acute soft tissue findings are noted. XR/XR shoulder LT min 2V* [id number] IMPRESSION: 1. Anterior shoulder dislocation.
--- NOTE | 2023-09-17 06:51 | XRR_ITS ---
PROCEDURE INFORMATION: Exam: XR Left Humerus Exam date and time: 09/17/2023 8:00 AM Age: 67 years old Clinical indication: Pain; Shoulder; Left TECHNIQUE: Imaging protocol: Radiologic exam of the left humerus. Views: 2 or more views. COMPARISON: CR (CHEST, ) 09/17/2023 7:57 AM FINDINGS: Bones/joints: Normal. Soft tissues: Normal. XR/[place] [id number] IMPRESSION: No acute findings.
--- NOTE | 2023-09-17 06:52 | ED_ITS ---
HPI - Extremity Problem General: Chief complaint: Extremity Injury, Upper Stated complaint: left arm out os socket Time Seen by Provider: 09/17/23 06:38 Source: patient Mode of arrival: ambulatory History of Present Illness: 67-year-old female presents emergency ro om complaining of severe left shoulder pain. She was here in the engineer byproduct hours of 717 had an anterior shoulder dislocation which was reduced and there is radiographic confirmation of reduction. She had previously had a orthopedic consult there is concern about rotator cuff dysfunction and she is being scheduled for surgery per her report. She is holding her arm AB ducted and flexed at the elbow. No direct trauma she states it began a couple hours ago after she rolled over in bed. MD Complaint: joint pain Onset (ago): hour(s) Pain Consistency: constant Location: left (Shoulder) Exacerbating factors: palpation Associated symptoms: Deny arthralgias, chest pain, fever(s), myalgias, rash or short of breath Review of Systems Const: Denies: fever(s) Card: Denies: chest pain Resp: Denies: dyspnea GI: Denies: abdominal pain : Denies: dysuria, urinary frequency or urinary urgency Musc: Reports: joint pain; Denies: neck pain or back pain Skin/Breast: Denies: rash PFSH ED PFSH: Medical History Anxiety Hypothyroidism Diabetes Hypercholesterolemia Syncope Urgency of urination Hypertension Surgical History H/O gastric bypass Family History Grandmother Cancer Hyperlipidemia Hypertension Mother Hypertension CAD (coronary artery disease) unknown age of onset Denies family history of Diabetes Clotting disorder Dementia Chronic kidney disease (CKD) Suicide Anesthesia complication Bleeding disorder Lung disease Stroke Social History Smoking and tobacco/nicotine status: unknown if used tobacco/nicotine Alcohol intake: never Substance/Drug Use: never Marital status: Physical Exam Const: ORIENTATION/CONSCIOUSNESS: Yes awake, Yes oriented to person, Yes oriented to place and Yes oriented to time HENMT: COMMON NORMALS: normocephalic, atraumatic and hearing grossly normal bilaterally HEAD & SCALP: normocephalic and atraumatic Resp: COMMON NORMALS: normal respiratory effort, No retractions, No use of accessory muscles and clear to auscultation bilaterally AUSCULTATION: clear to auscultation bilaterally Cardio: COMMON NORMALS: regular rate, regular rhythm and No murmurs present (Cardio) RATE: regular rate RHYTHM: regular rhythm GI: COMMON NORMALS: Soft to palpation and No hepatosplenomegaly present AUSCULTATION: Yes normoactive bowel sounds PALPATION: Yes Soft to palpation, No Tenderness to palpation present (GI), No Guarding due to palpation present (GI) and Yes No hepatosplenomegaly present Extremity: COMMON NORMALS: normal to inspection, capillary refill normal, no clubbing, cyanosis or edema, no calf tenderness and no pedal edema OTHER: Patient holding left arm AB ducted flexed at the elbow. Palpation of the left shoulder on palpation the glenoid fossa appears full and that is not seen on gross exam to be acutely dislocated. Neuro: SENSORIUM/ORIENTATION: Yes oriented to person, Yes oriented to place and Yes oriented to time Skin: COMMON NORMALS: no rashes or lesions noted GENERAL SKIN EXAM: no rashes or lesions noted Procedures Orthopedic Joint Reduction Joint #1: Time Out Performed: Yes Side: left Joint Reduction Location: shoulder Analgesia: procedural sedation Shoulder Technique Used (if applicable): traction/counter-traction Post-reduction neuro exam: intact Post-reduction vascular: intact Post Reduction X-Ray Obtained: Yes Post Reduction X-Ray Results: reduced Splint Applied: Yes (Shoulder immobilizer) Patient Tolerated Procedure: well Procedural Sedation Indication: fracture/dislocation reduction ASA Class: I Preparation: air sampling and monitoring applied, pulse oximeter, capnometry used, sup plemental O2 applied and suction/airway equipment at bedside Fentanyl: IV Fentanyl dose (mcg): 75 Midazolam: IV Midazolam dose (mg): 4 Patient Tolerated Procedure: well Complications: none Course Vital Signs: Vital signs: Vital Signs Temperature 98.8 F 09/17/23 06:41 Pulse Rate 63 09/17/23 08:57 Respiratory Rate 18 09/17/23 08:07 Blood Pressure 110/60 09/17/23 08:57 Pulse Oximetry 95 09/17/23 08:57 Oxygen Delivery Me thod Room Air 09/17/23 08:35 MDM - Extremity (Nontraumatic) Medical Decision Making Shoulder reduced under procedural sedation with Versed and fentanyl. Patient tolerated well will discharge patient home with hydrocodone and shoulder immobilizer. Strict instructions given regarding leaving shoulder immobilizer in place and not extending or AB ducting the arm. She has follow-up with orthopedics already scheduled they are planning to do rotator cuff repair. Recheck if pain is not controlled or if has worsening symptoms or has recurrent dislocation. Medical Records I reviewed the patient's medical records. Lab Data I reviewed the patient's lab results. Radiology Impressions Humerus X-Ray 09/17/23 06:51 IMPRESSION: No acute findings. Shoulder X-Ray 09/17/23 07:50 IMPRESSION: 1. Interval reduction left shoulder dislocation. 2. Findings suggest a large rotator cuff tear. All radiology interpretation(s) finalized by discharge Discharge Plan Discharge Patient Disposition: Home Clinical Impression: Bilateral rotator cuff dysfunction Anterior dislocation of left shoulder Qualifiers: Encounter type: initial encounter Qualified Code(s): S43.015A - Anterior dislocation of left humerus, initial encounter Condition: Stable Prescriptions: New hydrocodone-acetaminophen 5-325 mg tablet 1 tab PO Q6H PRN (Reason: pain) Qty: 15 0RF No Action metoprolol tartrate 25 mg tablet 25 mg PO BID Qty: 180 1RF metoprolol succinate 50 mg tablet extended release 24 hr 50 mg PO DAILY Qty: 30 11RF Eliquis 2.5 mg tablet 2.5 mg PO BID Qty: 60 11RF quetiapine [Seroquel] 100 mg tablet 100 mg PO BID sulfamethoxazole-trimethoprim [Bactrim DS] 800-160 mg tablet 1 tab PO BID Qty: 10 0RF fluticasone propionate 50 mcg/actuation spray,suspension 2 spray intranasal DAILY Qty: 16 11RF famotidine [Pepcid] 20 mg tablet 20 mg PO BID Qty: 180 11RF atorvastatin 80 mg tablet 80 mg PO DAILY Qty: 90 3RF hydralazine 50 mg tablet 75 mg PO TID Qty: 90 11RF levothyroxine 25 mcg tablet 50 mcg PO DAILY Qty: 90 11RF lisinopril 40 mg tablet 40 mg PO DAILY Qty: 30 11RF magnesium oxide 400 mg (241.3 mg magnesium) tablet 400 mg PO DAILY Qty: 30 3RF loratadine [Claritin] 10 mg tablet 10 mg PO DAILY Qty: 30 11RF Benadryl 25 mg Capsule 25 mg PO TID PRN (Reason: ALLERGIES) nifedipine 60 mg tablet extended release 24hr 60 mg PO DAILY trazodone 100 mg tablet 100 mg PO BEDTIME ferrous sulfate 325 mg (65 mg iron) tablet 325 mg PO DAILY Discharge Orders: Discharge ED (Routine); Ordered 09/17/23 Ordered By: Sulaiman Berg Referrals: Obey Rose MD [Primary Care Provider] - Discharge Diet: Usual diet Discharge Activity: Limit activity as instructed Patient Instructions: Shoulder Dislocation (ED), Closed Reduction (ED), Shoulder Immobilizer (ED), Opioid Safety, Pain Management Activity Restrictions/Additional Instructions: Thank you for choosing [facility] for your healthcare needs today. It is very important that you follow up as instructed or that you return to the Emergency Department should you have concerns or if your condition changes or worsens in any way. You were seen for shoulder dislocation. You are given pain medications. The shoulder was reduced without difficulty. Use pain medications at home for discomfort. You should leave the arm in the shoulder immobilizer until you follow-up with orthopedic clinic. Contact the orthopedic clinic to let them know that you have had 2 shoulder dislocations in the last 48 hours. Coding Level of Care Code ED [facility] Operations Center Technician for Mayela Jacobsen
[2023-09-17] MEDS: morphine 4 mg/mL SDV 1 mL IVP (07:14)
[2023-09-17] MEDS: ondansetron 2 mg/ML SDV 2 mL 4 MG IVP (07:14)
[2023-09-17] MEDS: midazolam 1 mg/mL INJ 2 mL 4 MG IVP (07:42)
--- NOTE | 2023-09-17 07:50 | XRR_ITS ---
PROCEDURE INFORMATION: Exam: XR Left Shoulder Exam date and time: 09/17/2023 7:57 AM Age: 67 years old Clinical indication: Pain; Shoulder; Left; Additional info: Postreduction TECHNIQUE: Imaging protocol: Radiologic exam of the left shoulder. Views: 2 or more views. COMPARISON: CR XR shoulder LT min 2V* [id number] 09/17/2023 6:57 AM FINDINGS: Bones/joints: The left humeral head appears to align normally with respect to the glenoid. The left humeral head does ride somewhat high articulating with the undersurface of the distal acromion. This suggests the presence of a rotator cuff tear. Small ossified densities are seen within the axillary recess likely representing loose bodies. Soft tissues: No acute soft tissue findings are noted. XR/XR shoulder LT min 2V* [id number] IMPRESSION: 1. Interval reduction left shoulder dislocation. 2. Findings suggest a large rotator cuff tear.
[2023-09-17 07:58] VITALS: BP 164/74; PULSE 80; RESP 18; O2SAT 93
[2023-09-17] MEDS: fentaNYL 50 mcg/mL INJ 2mL 100 MCG IVP (08:06)
[2023-09-17 08:07] VITALS: BP 106/52; PULSE 63; RESP 18; O2SAT 96
[2023-09-17 08:21] VITALS: BP 109/55
[2023-09-17 08:35] VITALS: BP 113/58; PULSE 54; O2SAT 93
[2023-09-17 08:57] VITALS: BP 110/60; PULSE 63; O2SAT 95
== END 2023-09-17 08:58 | disposition home or self-care (01) ==
PROVIDERS: Emergency Provider Family Medicine; PCP Family Medicine
DX: S43.015A Anterior dislocation of left humerus, initial encounter (principal); M75.101 Unspecified rotator cuff tear or rupture of right shoulder, not specified as traumatic; Z79.01 Long term (current) use of anticoagulants; E11.9 Type 2 diabetes mellitus without complications; I10 Essential (primary) hypertension; X58.XXXA Exposure to other specified factors, initial encounter
CPT/HCPCS: 23650; 73030; 73060; 94799; 96374; 96375; 99152; 99285; J2250; J2270; J2405; J3010

== ENCOUNTER 2023-09-17 16:27 | Outpatient (CLI) | payer MEDICARE, SELFPAY | END 2023-09-17 16:28 | disposition home or self-care (01) | LOC: SPT 16:28 | PROVIDERS: PCP Family Medicine; Visit Provider Physician Assistant | DX: Z46.89 Encounter for fitting and adjustment of other specified devices (principal); S43.015D Anterior dislocation of left humerus, subsequent encounter; X58.XXXD Exposure to other specified factors, subsequent encounter | CPT/HCPCS: A4565 ==

== ENCOUNTER 2023-09-19 06:55 | Emergency (ER) | payer MEDICARE, SELFPAY ==
[2023-09-19 07:02] VITALS: BP 131/68; PULSE 89; RESP 18; TEMP 36.6; O2SAT 95
--- NOTE | 2023-09-19 07:06 | XRR_ITS ---
PROCEDURE INFORMATION: Exam: XR Left Shoulder Exam date and time: 09/19/2023 7:17 AM Age: 67 years old Clinical indication: Pain; Shoulder; Left; Additional info: Pain/dislocation TECHNIQUE: Imaging protocol: Radiologic exam of the left shoulder. Views: 2 or more views. COMPARISON: CR XR shoulder LT min 2V* [id number] 09/17/2023 7:57 AM FINDINGS: Bones/joints: There is evidence of an anterior shoulder dislocation. No fracture noted. Soft tissues: Normal. XR/XR shoulder LT min 2V* [id number] IMPRESSION: Anterior shoulder dislocation
[2023-09-19] MEDS: ondansetron 2 mg/ML SDV 2 mL 4 MG IVP (07:15)
[2023-09-19] MEDS: fentaNYL 50 mcg/mL INJ 2mL IVP (07:17)
--- NOTE | 2023-09-19 07:30 | ED_ITS ---
HPI - Extremity Problem General: Chief complaint: Extremity Injury, Upper Stated complaint: left shoulder out of socket Time Seen by Provider: 09/19/23 06:58 History of Present Illness: 67-year-old female presents emergency ro om for the third time in 4 days with a anterior shoulder dislocation. We have seen her 2 days ago reduced her left anterior shoulder dislocation under conscious sedation. We placed in a shoulder immobilizer. After discharge she was seen in Ortho she has been scheduled for shoulder arthroscopy and possible surgery went back to using the sling and once again dislocated her shoulder. Is complaining of severe pain denies any other injury Associated symptoms: Deny chest pain or fever(s) Review of Systems Const: Denies: fever(s) or chills Card: Denies: chest pain Resp: Denies: dyspnea GI: Denies: abdominal pain : Denies: dysuria, urinary frequency or urinary urgency Musc: Denies: neck pain or back pain PFSH ED PFSH: Medical History Anxiety Hypothyroidism Diabetes Hypercholesterolemia Syncope Urgency of urination Hypertension Surgical History H/O gastric bypass Family History Grandmother Cancer Hyperlipidemia Hypertension Mother Hypertension CAD (coronary artery disease) unknown age of onset Denies family history of Diabetes Clotting disorder Dementia Chronic kidney disease (CKD) Suicide Anesthesia complication Bleeding disorder Lung disease Stroke Social History Smoking and tobacco/nicotine status: former use of tobacco/nicotine Alcohol intake: never Substance/Drug Use: never Marital status: Physical Exam Const: COMMON NORMALS: no acute distress GENERAL APPEARANCE: cooperative and comfortable ORIENTATION/CONSCIOUSNESS: Yes awake, Yes oriented to person, Yes oriented to place and Yes oriented to time HENMT: COMMON NORMALS: normocephalic, atraumatic and hearing grossly normal bilaterally HEAD & SCALP: normocephalic and atraumatic Resp: COMMON NORMALS: normal respiratory effort, No retractions, No use of accessory muscles and clear to auscultation bilaterally AUSCULTATION: clear to auscultation bilaterally Cardio: COMMON NORMALS: regular rate, regular rhythm and No murmurs present (Cardio) RATE: regular rate RHYTHM: regular rhythm GI: COMMON NORMALS: Soft to palpation and No hepatosplenomegaly present AUSCULTATION: Yes normoactive bowel sounds PALPATION: Yes Soft to palpation, No Tenderness to palpation present (GI), No Guarding due to palpation present (GI) and Yes No hepatosplenomegaly present Extremity: OTHER: Patient holding left arm AB ducted at 90 degrees to the chest. Complaining of severe pain. Neuro: SENSORIUM/ORIENTATION: Yes oriented to person, Yes oriented to place and Yes oriented to time Skin: COMMON NORMALS: no rashes or lesions noted GENERAL SKIN EXAM: no rashes or lesions noted Procedures Orthopedic Joint Reduction Joint #1: Time Out Performed: Yes Side: left Joint Reduction Location: shoulder Analgesia: procedural sedation Shoulder Technique Used (if applicable): traction/counter-traction Post-reduction neuro exam: intact Post-reduction vascular: intact Post Reduction X-Ray Obtained: Yes Post Reduction X-Ray Results: reduced Splint Applied: Yes (Shoulder immobilizer) Patient Tolerated Procedure: well Procedural Sedation Indication: fracture/dislocation reduction ASA Class: I Preparation: laboratory monitor applied, pulse oximeter, supplemental O2 applied and suction/airway equipment at bedside Fentanyl: IV Midazolam: IV Course Vital Signs: Vital signs: Vital Signs Temperature 97.9 F 09/19/23 07:02 Pulse Rate 65 09/19/23 08:34 Respiratory Rate 20 H 09/19/23 08:47 Blood Pressure 131/68 09/19/23 07:02 Pulse Oximetry 98 09/19/23 08:47 Oxygen Delivery Me thod Nasal Cannula 09/19/23 08:01 Oxygen Flow Rate 3 09/19/23 08:01 MDM - Extremity (Nontraumatic) Medical Decision Making Postreduction film shows good anatomical alignment. Will place patient in another shoulder immobilizer strict instructions given not to remove the shoulder immobilizer at all. Patient is extremely lax joint and even abduction seems to allow for dislocation. Contacted Dr. Saldivar given the number of times and just a few days if the patient is dislocated. Patient is given pain medications 2 days ago. Will follow-up with orthopedic office. Return if has recurrent dislocation. Lab Data Radiology Impressions Shoulder X-Ray 09/19/23 08:10 IMPRESSION: Successful shoulder reduction All radiology interpretation(s) finalized by discharge Discharge Plan Discharge Patient Disposition: Home Clinical Impression: Anterior dislocation of left shoulder Qualifiers: Encounter type: initial encounter Qualified Code(s): S43.015A - Anterior dislocation of left humerus, initial encounter Condition: Stable Prescriptions: No Action metoprolol tartrate 25 mg tablet 25 mg PO BID Qty: 180 1RF metoprolol succinate 50 mg tablet extended release 24 hr 50 mg PO DAILY Qty: 30 11RF Eliquis 2.5 mg tablet 2.5 mg PO BID Qty: 60 11RF quetiapine [Seroquel] 100 mg tablet 100 mg PO BID (DME) left arm sling See Rx Instructions .Route .MEDSUPPLY Qty: 1 0RF Rx Instructions: As directed sulfamethoxazole-trimethoprim [Bactrim DS] 800-160 mg tablet 1 tab PO BID Qty: 10 0RF fluticasone propionate 50 mcg/actuation spray,suspension 2 spray intranasal DAILY Qty: 16 11RF famotidine [Pepcid] 20 mg tablet 20 mg PO BID Qty: 180 11RF atorvastatin 80 mg tablet 80 mg PO DAILY Qty: 90 3RF hydralazine 50 mg tablet 75 mg PO TID Qty: 90 11RF levothyroxine 25 mcg tablet 50 mcg PO DAILY Qty: 90 11RF lisinopril 40 mg tablet 40 mg PO DAILY Qty: 30 11RF magnesium oxide 400 mg (241.3 mg magnesium) tablet 400 mg PO DAILY Qty: 30 3RF loratadine [Claritin] 10 mg tablet 10 mg PO DAILY Qty: 30 11RF Benadryl 25 mg Capsule 25 mg PO TID PRN (Reason: ALLERGIES) nifedipine 60 mg tablet extended release 24hr 60 mg PO DAILY trazodone 100 mg tablet 100 mg PO BEDTIME ferrous sulfate 325 mg (65 mg iron) tablet 325 mg PO DAILY hydrocodone-acetaminophen 5-325 mg tablet 1 tab PO Q6H PRN (Reason: pain) Qty: 15 0RF Discharge Orders: Discharge ED (Routine); Ordered 09/19/23 Ordered By: Sulaiman Berg Referrals: Obey Rose MD [Primary Care Provider] - Discharge Diet: Usual diet Discharge Activity: Increase activity as tolerated Patient Instructions: Opioid Safety, Pain Management Activity Restrictions/Additional Instructions: Thank you for choosing [facility] for your healthcare needs today. It is very important that you follow up as instructed or that you return to the Emergency Department should you have concerns or if your condition changes or worsens in any way. You were seen with recurrent anterior shoulder dislocation. You should leave the immobilizer in place do not remove at all even for bathing until you follow- up with orthopedics. Use the hydrocodone that was prescribed for you 2 days ago from the emergency room for pain you can also apply ice to the shoulder. It is extremely important to not remove the shoulder immobilizer in any way until you follow-up with the orthopedist. At this point your shoulder is very unstable and there is a high likelihood of a repeat dislocation again if it is removed from the immobilizer. Coding Level of Care Code ED Envelope Press Operator for Mayela Jacobsen
[2023-09-19] MEDS: midazolam 1 mg/mL INJ 2 mL 4 MG IVP (07:45)
[2023-09-19 08:04] VITALS: PULSE 71; O2SAT 96
--- NOTE | 2023-09-19 08:10 | XRR_ITS ---
PROCEDURE INFORMATION: Exam: XR Left Shoulder Exam date and time: 09/19/2023 8:18 AM Age: 67 years old Clinical indication: Injury or trauma; Fall; Dislocation; Shoulder; Left; Additional info: Post reduction TECHNIQUE: Imaging protocol: Radiologic exam of the left shoulder. Views: 2 or more views. COMPARISON: CR (CHEST, ) 09/19/2023 7:17 AM FINDINGS: Bones/joints: The humeral head has been repositioned and bony alignment is now normal. No fracture noted. A small rounded calcification lies adjacent to the glenoid fossa and this is felt to represent a chronic calcification. Soft tissues: Normal. XR/XR shoulder LT min 2V* [id number] IMPRESSION: Successful shoulder reduction
[2023-09-19 08:34] VITALS: PULSE 65; O2SAT 99
[2023-09-19 08:47] VITALS: RESP 20; O2SAT 98
[2023-09-19] MEDS: fentaNYL 50 mcg/mL INJ 2mL 100 MCG IVP (08:47)
[2023-09-19] MEDS: midazolam 1 mg/mL INJ 2 mL IVP (08:47)
== END 2023-09-19 08:52 | disposition home or self-care (01) ==
PROVIDERS: Emergency Provider Family Medicine; PCP Family Medicine
DX: S43.015A Anterior dislocation of left humerus, initial encounter (principal); Z79.01 Long term (current) use of anticoagulants; E11.9 Type 2 diabetes mellitus without complications; I10 Essential (primary) hypertension; Z87.891 Personal history of nicotine dependence; X58.XXXA Exposure to other specified factors, initial encounter
CPT/HCPCS: 23650; 73030; 94799; 96374; 99285; J2250; J2405; J3010

== ENCOUNTER 2023-09-29 16:20 | Outpatient (RCR) | payer MEDICARE, SELFPAY | END 2023-09-30 23:59 | disposition home or self-care (01) | LOC: SPT 16:20 | PROVIDERS: PCP Family Medicine; Visit Provider Physician Assistant | DX: M75.122 Complete rotator cuff tear or rupture of left shoulder, not specified as traumatic (principal); S43 Dislocation and sprain of joints and ligaments of shoulder girdle; X58.XXXD Exposure to other specified factors, subsequent encounter | CPT/HCPCS: 97110; 97161; G0283 ==

== ENCOUNTER → 2023-09-30 15:12 | Outpatient (BNVA) | payer MEDICARE, SELFPAY | PROVIDERS: PCP Family Medicine; Visit Provider Nurse Practitioner Family | DX: L57.0 Actinic keratosis (principal); L81.4 Other melanin hyperpigmentation; L57.8 Other skin changes due to chronic exposure to nonionizing radiation | CPT/HCPCS: 17000; 99213 ==

== ENCOUNTER 2023-10-01 06:00 | Outpatient (RCR) | payer MEDICARE, SELFPAY | END 2023-10-31 23:59 | disposition home or self-care (01) | LOC: SPT 06:00 | PROVIDERS: PCP Family Medicine; Visit Provider Physician Assistant | DX: M75.122 Complete rotator cuff tear or rupture of left shoulder, not specified as traumatic (principal); S43 Dislocation and sprain of joints and ligaments of shoulder girdle; X58.XXXD Exposure to other specified factors, subsequent encounter | CPT/HCPCS: 95992; 97110; G0283 ==

== ENCOUNTER 2023-10-05 13:46 | Inpatient (IN) | payer MEDICARE, SELFPAY ==
[2023-10-05] VITALS (51 sets, daily range): BP systolic 73–102; BP diastolic 44–76; PULSE 85–130; RESP 15–37; TEMP 36.7–36.9; O2SAT 92–100
--- NOTE | 2023-10-05 13:50 | ECG_ITS ---
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 Measurements Intervals [place] Rate: 143 P: 0 LA: 0 QRS: 34 QRSD: 86 T: 30 QT: 293 QTc: 453 Interpretive Statements ATRIAL FIBRILLATION WITH RAPID VENTRICULAR RESPONSE ABNORMAL RHYTHM ECG Compared to ECG 08/08/2023 11:06:43 Sinus rhythm no longer present Electronically Signed On 10-05-2023 14:12:33 CDT by Lit Molina M.D. [email or web address] Systemsuniversity [email or web address] st. john medical centerSignal [email or web address]/store/[id number]
--- NOTE | 2023-10-05 14:25 | XRR_ITS ---
PROCEDURE INFORMATION: Exam: XR Chest Exam date and time: 10/05/2023 2:43 PM Age: 67 years old Clinical indication: Other: AMS TECHNIQUE: Imaging protocol: Radiologic exam of the chest. Views: 1 view. COMPARISON: CR XR chest 1V portable [id number] 06/21/2023 2:15 PM FINDINGS: Lungs: Small area of infiltrate in the left base. Pleural spaces: Unremarkable. No pleural effusion. No pneumothorax. Heart/Mediastinum: Unremarkable. No cardiomegaly. Bones/joints: Unremarkable. XR/XR chest 1V portable [id number] IMPRESSION: Small area of infiltrate in the left base.
--- NOTE | 2023-10-05 14:25 | CT_ITS ---
WS: [id number] CT HEAD NONCONTRAST HISTORY: ams TECHNIQUE: Contiguous axial imaging performed through the brain in 2.5 mm imaging. Bone and soft tiss ue windows. Sagittal and coronal reformats reviewed. All CT scans at [facility] use at least one of these dose optimization techniques: automated exposure control; mA and/or kV adjustment per pa tient size (includes targeted exams where dose is matched to clinical indication); or iterative recon struction. DLP: 1126.78 mGy.cm COMPARISON: 11/25/2022 No acute intracranial hemorrhage, midline shift or mass effect. Mild symmetric atrophy and very mild small vessel disease. No prior infarct. Ventricles: Normal size with no hydrocephalus. Paranasal sinuses: Small mucous retention cyst in the LEFT maxillary sinus. Mastoid air cells: Well pneumatized. Calvarium and scalp: Skull is intact with no soft tissue edema or swelling. CT/CT head wo con* [id number] IMPRESSION: 1. No acute intracranial hemorrhage or edema. 2. Mild cerebral atrophy and mild small vessel ischemic disease.
--- NOTE | 2023-10-05 14:36 | ED_ITS ---
HPI - Altered Mental Status 2 General: Chief Complaint: Altered Mental Status Stated Complaint: Dr. Harley sent over Anxiety Time Seen by Provider: 10/05/23 14:16 Source: patient Mode of arrival: ambulatory Limitations: no limitations History of Present Illness: 67-year-old female is here with family s valerie that had in the family last week they state that she has been out of it since then stated that she has not been eating has not been drinking and she is now not able to ambulate. Here she is confused she is hypotensive she discounted repeats questions answer some questions but not all. No known fevers he denies any vomiting or diarrhea. Review of Systems 2 General: Reports: ROS unobtainable due to mental status PFSH ED 2 PFSH: Medical History (Updated 10/05/23 @ 16:41 by Alexandria Carmona MD) Hyponatremia Bipolar 2 disorder Anxiety Hypothyroidism Diabetes Hypercholesterolemia Syncope Urgency of urination Hypertension Surgical History H/O gastric bypass Family History Grandmother Cancer Hyperlipidemia Hypertension Mother Hypertension CAD (coronary artery disease) unknown age of onset Denies family history of Diabetes Clotting disorder Dementia Chronic kidney disease (CKD) Suicide Anesthesia complication Bleeding disorder Lung disease Stroke Social History Smoking and tobacco/nicotine status: unknown if used tobacco/nicotine Alcohol intake: never Substance/Drug Use: never Marital status: Physical Exam 2 Const: COMMON NORMALS: alert; negative for patient oriented x3 GENERAL APPEARANCE: ill appearing and frail appearing HENMT: COMMON NORMALS: normocephalic and atraumatic HEAD & SCALP: n ormocephalic and atraumatic Neck/C-Spine: COMMON NORMALS: full ROM and supple Chest: COMMONS NORMALS: normal inspection of the chest Resp: COMMON NORMALS: normal respiratory effort, No retractions, No use of accessory muscles and clear to auscultation bilaterally AUSCULTATION: clear to auscultation bilaterally Cardio: COMMON NORMALS: regular rhythm and No murmurs present (Cardio) R ATE: tachycardic RHYTHM: regular rhythm GI: COMMON NORMALS: Normal to inspection, nondistended, normoactive bowel sounds present, Soft to palpation, non-tender and no masses PALPATION: Yes Soft to palpation Extremity: COMMON NORMALS: normal to inspection and full ROM Neuro: COMMON NORMALS: negative for patient oriented x3 S ENSORIUM/ORIENTATION: Yes alert SPEECH: speech normal Psych: COMMON NORMALS: Normal thought process present and cooperative T HOUGHT PROCESS: Normal thought process present Skin: COMMON NORMALS: no rashes or lesions noted and no wounds GENERAL SKIN EXAM: no rashes or lesions noted Course 2 Vital Signs: Vital signs: Vital Signs Temperature 98.0 F 10/05/23 14:04 Pulse Rate 112 H 10/05/23 16:03 Blood Pressure 91/49 10/05/23 16:03 Pulse Oximetry 97 10/05/23 16:03 Oxygen Delivery Me thod Room Air 10/05/23 16:03 MDM - Altered Mental Status Medical Decision Making Patient presents here with altered mental status she is quite dehydrated she is in A-fib with RVR blood pressure here is improving after IV fluids did give her antibiotics for possible sepsis white count lactate are normal. Did turn amiodarone drip for her A-fib with RVR since her blood pressure was soft. I did speak to the hospitalist will admit to the ICU. Medical Records I reviewed the patient's medical records. Lab Data I reviewed the patient's lab results. 10/05/23 14:33 10/05/23 14:33 Radiology Impressions Chest X-Ray 10/05/23 14:25 IMPRESSION: Small area of infiltrate in the left base. Head CT 10/05/23 14:25 IMPRESSION: 1. No acute intracranial hemorrhage or edema. 2. Mild cerebral atrophy and mild small vessel ischemic disease. Laboratory Results WBC 9.04 10^3/uL (3.29-11.43) 10/05/23 14:33 RBC 3.80 10^6/uL (3.85-5.65) L 10/05/23 14:33 Hgb 11.70 g/dL (11.27-16.99) 10/05/23 14:33 Hct 33.8 % (36-47) L 10/05/23 14:33 MCV 88.9 fl (85-98) 10/05/23 14:33 MCH 30.8 pg (27-33) 10/05/23 14:33 MCHC 34.6 g/dL (30-55) 10/05/23 14:33 RDW 13.1 % (12.1-15.1) 10/05/23 14:33 Plt Count 138 10^3/cmm (157-399) L 10/05/23 14:33 MPV 11.3 fL (7.4-10.4) H 10/05/23 14:33 Neut % (Auto) 62.2 % 10/05/23 14:33 Lymph % (Auto) 30.9 % 10/05/23 14:33 Harvey % (Auto) 6.1 % 10/05/23 14:33 Eos % (Auto) 0.0 % 10/05/23 14:33 Baso % (Auto) 0.2 % 10/05/23 14:33 Neut # (Auto) 5.63 10^3/uL (1.8-7.7) 10/05/23 14:33 Lymph # (Auto) 2.8 10^3/uL (0.8-4.8) 10/05/23 14:33 Harvey # (Auto) 0.6 10^3/uL (0.2-0.9) 10/05/23 14:33 Eos # (Auto) 0.0 10^3/uL (0.0-0.8) 10/05/23 14:33 Baso # (Auto) 0.0 10^3/uL (0.0-0.1) 10/05/23 14:33 Nucleated RBC % (auto) 0 % 10/05/23 14:33 Nucleated RBCs # 0.0 /100WBC 10/05/23 14:33 PT 12.50 SECONDS (12.1-14.9) 10/05/23 14:33 INR 0.91 (0.8-1.2) 10/05/23 14:33 Sodium 124 mmol/L (136-145) L 10/05/23 14:33 Potassium 3.8 mmol/L (3.5-5.1) 10/05/23 14:33 Chloride 89 mmol/L (98-107) L 10/05/23 14:33 Carbon Dioxide 20 mmol/L (22-29) L 10/05/23 14:33 Anion Gap 18.8 (5-19) 10/05/23 14:33 BUN 30 mg/dL (8-23) H 10/05/23 14:33 Creatinine 1.0 mg/dL (0.5-0.9) H 10/05/23 14:33 GFR Calculation 55.5 mL/min (90-130) L 10/05/23 14:33 Glucose 129 mg/dL (65-115) H 10/05/23 14:33 Calculated Osmolality 266 mOsm/kg (285-295) L 10/05/23 14:33 Lactic Acid 1.9 mmol/L (0.5-2.2) 10/05/23 14:33 Calcium 8.1 mg/dL (8.5-10.5) L 10/05/23 14:33 Total Bilirubin 0.6 mg/dL (0.15-1.2) 10/05/23 14:33 AST 46 U/L (0-32) H 10/05/23 14:33 ALT 34 U/L (0-33) H 10/05/23 14:33 Alkaline Phosphatase 66 U/L (35-105) 10/05/23 14:33 Troponin T Baseline 20 ng/L (0-10) H 10/05/23 14:33 Total Protein 6.0 g/dL (6.6-8.7) L 10/05/23 14:33 Albumin 3.0 g/dL (3.5-5.2) L 10/05/23 14:33 Globulin 3.0 g/dL (1.3-4.6) 10/05/23 14:33 TSH 1.85 uIU/mL (0.27-4.20) 10/05/23 14:33 Urine Color Yellow (Yellow) 10/05/23 15:14 Urine Appearance Clear (CLEAR) 10/05/23 15:14 Urine pH 6.0 (5-7) 10/05/23 15:14 Ur Specific [place] 1.016 (1.005-1.030) 10/05/23 15:14 Urine Protein 1+ (Negative) A 10/05/23 15:14 Urine Glucose (UA) Negative (Normal) 10/05/23 15:14 Urine Ketones Negative (Negative) 10/05/23 15:14 Urine Blood Negative (Negative) 10/05/23 15:14 Urine Nitrate Negative (Negative) 10/05/23 15:14 Urine Bilirubin Negative (Negative) 10/05/23 15:14 Urine Urobilinogen 1.0 mg/dL (Negative) 10/05/23 15:14 Ur Leukocyte Esterase Negative (Negative) 10/05/23 15:14 Urine RBC 0-2 /hpf (0-2) 10/05/23 15:14 Urine WBC 0-5 /hpf (0-5) 10/05/23 15:14 Ur Squamous Epith Cells 0-5 /hpf (0-5) 10/05/23 15:14 Amorphous Sediment Not Reportable 10/05/23 15:14 Urine Bacteria None seen /hpf (NONE) 10/05/23 15:14 Hyaline Casts 7.85 /lpf 10/05/23 15:14 Salicylates < 0.3 mg/dL (3-10) L 10/05/23 14:33 Urine Opiates Screen Positive ng/mL (Negative) H 10/05/23 15:14 Acetaminophen < 5.0 ug/mL (10-30) L 10/05/23 14:33 Ur Barbiturates Screen Negative ng/mL (Negative) 10/05/23 15:14 Ur Phencyclidine Scrn Negative ng/mL (Negative) 10/05/23 15:14 Ur Amphetamines Screen Negative ng/mL (Negative) 10/05/23 15:14 U Benzodiazepines Scrn Negative ng/mL (Negative) 10/05/23 15:14 Urine Cocaine Screen Negative ng/mL (Negative) 10/05/23 15:14 U Marijuana (THC) Screen Negative ng/mL (Negative) 10/05/23 15:14 Ethyl Alcohol < 10 mg/dL (0-10) 10/05/23 14:33 All radiology interpretation(s) finalized by discharge EKG Data EKG 1: I personally reviewed and interpreted this EKG as follows: EKG interpretation date: 10/05/23 EKG interpretation time: 14:04 Interpretation: afib with rvr hr [address] elevation qrs 86 qtc 376 Critical Care Time 2 Critical Care Time: Critical Care Time: Yes Total Critical Care Time: 40 Attestation: The high probability of a clinically significant, sudden or life threatening deterioration of the patient's cv system(s) required my full and direct attention, intervention and personal management. The critical care time is as shown. This time is in addition to time spent performing any reported procedures but includes the following: [x] Data and vital sign review and interpretation [x] Patient assessment, examination and intervention [x] Documentation [x] Medication orders and management Discharge Plan Discharge Patient Disposition: Admitted As Inpatient Admit Provider: Sulaiman Melton Clinical Impression: Altered mental status, Hyponatremia, Dehydration, Atrial fibrillation with RVR Condition: Stable Coding Level of Care Code ED Administrative Associate for Mayela Jacobsen
[2023-10-05] MEDS: sodium chloride 0.9% 1,000 ML 999 ML IV ×2 (14:42→15:17)
[2023-10-05 14:52] LABS: Basophils % 0.2 %; Hematocrit 33.8 % (36-47); Lymphocytes # 2.8 10^3/uL (0.8-4.8); Lymphocytes % 30.9 %; Mean Corpuscular HGB Conc 34.6 g/dL (30-55); Mean Corpuscular Hemoglobin 30.8 pg (27-33); Mean Corpuscular Volume 88.9 fl (85-98); Mean Platelet Volume 11.3 fL (7.4-10.4); Monocytes # 0.6 10^3/uL (0.2-0.9); Monocytes % 6.1 %; Neutrophils # 5.63 10^3/uL (1.8-7.7); Neutrophils % 62.2 %; Nucleated Red Blood Cells % 0 %; Platelet Count 138 10^3/cmm (157-399); Red Cell Distribution Width 13.1 % (12.1-15.1); White Blood Count 9.04 10^3/uL (3.29-11.43)
[2023-10-05 15:07] LABS: INR 0.91 (0.8-1.2)
[2023-10-05 15:10] LABS: Lactic Sepsis W/Reflex 1.9 mmol/L (0.5-2.2)
[2023-10-05 15:13] LABS: Troponin(5th) Baseline 20 ng/L (0-10)
[2023-10-05 15:20] LABS: Alanine Aminotransferase 34 U/L (0-33); Alkaline Phosphatase 66 U/L (35-105); Anion Gap 18.8 (5-19); Aspartate Amino Transferase 46 U/L (0-32); Blood Urea Nitrogen 30 mg/dL (8-23); Calcium 8.1 mg/dL (8.5-10.5); Carbon Dioxide 20 mmol/L (22-29); Chloride 89 mmol/L (98-107); Creatinine Clr Calc Pharmacy 43.4419; Glomerular Filtration Rate 55.5 mL/min (90-130); Glucose 129 mg/dL (65-115); Osmolality Calculated 266 mOsm/kg (285-295); Potassium 3.8 mmol/L (3.5-5.1); Sodium 124 mmol/L (136-145); Thyroid Stimulating Hormone 1.85 uIU/mL (0.27-4.20); Total Bilirubin 0.6 mg/dL (0.15-1.2)
[2023-10-05 15:21] LABS: Acetaminophen < 5.0 ug/mL (10-30); Alcohol Level < 10 mg/dL (0-10); Salicylate < 0.3 mg/dL (3-10)
[2023-10-05 15:25] LABS: Slide Review Slide Review Perform
[2023-10-05 15:30] LABS: Charge for UA Resulting for Rev
[2023-10-05 15:40] LABS: Amphetamines Screen Urine Negative (Negative); Barbiturates Screen Urine Negative (Negative); Benzodiazepines Screen Urine Negative (Negative); Cocaine Screen Urine Negative (Negative); Opiate Screen Urine Positive (Negative); PCP Screen Urine Negative (Negative); THC Screen Urine Negative (Negative)
[2023-10-05 15:46] LABS: Bilirubin Urine Negative (Negative); Blood Urine Negative (Negative); Glucose Urine UA Negative (Normal); Ketones Urine Negative (Negative); Leukocyte Esterase Urine Negative (Negative); Nitrate Urine Negative (Negative); Protein Urine 1+ (Negative); Specific Gravity, Urine 1.016 (1.005-1.030); Urine Appearance Clear (CLEAR); Urine Color Yellow (Yellow)
[2023-10-05] MEDS: piperacillin-tazobactam 3.375 GM in sodium chloride 0.9% (plus) 50 ML IV (15:51)
[2023-10-05 15:52] LABS: Bacteria Urine None Seen /hpf; Hyaline Casts Urine 7.85 /lpf; RBC Urine 0-2 /hpf (0-2); Squamous Epithelial Cell Urine 0-5 /hpf (0-5); WBC Urine 0-5 /hpf (0-5)
[2023-10-05] MEDS: amiodarone 150 MG/100 ML PREMIX 400 MG IV (15:52)
--- NOTE | 2023-10-05 15:58 | ECG_ITS ---
[facility] Test Date: 2023-10-05 Pat Name: Trish Rocha Department: Room: Gender: Female Director Talent Acquisition: : 1955 Requested By: Alexandria Carmona Order Number: [id number] Micah MD: Sam Robertson M.D. Measurements Intervals [place] Rate: 112 P: 0 AK: 0 QRS: 57 QRSD: 82 T: 53 QT: 350 QTc: 480 Interpretive Statements ATRIAL FIBRILLATION WITH RAPID VENTRICULAR RESPONSE LOW QRS VOLTAGE IN PRECORDIAL LEADS [QRS DEFLECTION < 1.0 mV IN CHEST LEADS] ABNORMAL RHYTHM ECG Compared to ECG 10/05/2023 14:04:41 Low QRS voltage now present Electronically Signed On 10-06-2023 7:53:57 CDT by Sam Robertson M.D. [id number]
--- NOTE | 2023-10-05 16:07 | P.HP_ITS ---
Providers/Chief Complaint 2 Admitting Physician: Sulaiman Melton MD Primary Care Provider: Obey Rose MD Chief Complaint: Dr. Harley sent over Anxiety History of Present Illness Trish Rocha is a 67 year old female with a past medical history of hypertension hyperlipidemia, diet-controlled type 2 diabetes mellitus, hypothyroidism, history of gastric bypass, who presents presented with confusion. As per the who is at the bedside patient has been confused for last 1 week her p.o. intake has worsened significantly, she is extremely dry, recently she had Botox injection for urine incontinence. Patient has become bedbound because of her deconditioning. In the past she has been been treated for hyponatremia. No official diagnosis for hyponatremia as per the family. Patient able to talk during my evaluation but with very short attention span, no significant signs of stroke, currently she is hypotensive requiring IV fluids 2.5 L given in the ER which improved her sodium from 124to 128. Patient will go to ICU Nephro consulted Review of Systems 2 Const: Denies: fever(s) Eyes: Denies: change in vision ENMT: Denies: throat pain Card: Denies: chest pain Resp: Denies: dyspnea GI: Denies: abdominal pain Medications/Allergies Home Medications Medication Instructions Recorded Confirmed Last Taken Type fluticasone propionate 50 2 spray intranasal DAILY #16 grams 03/05/23 10/05/23 06/21/23 Rx mcg/actuation nasal spray,suspension famotidine 20 mg tablet (Pepcid) 20 mg PO BID #180 tabs 06/10/23 10/05/23 06/21/23 Rx diphenhydramine HCl 25 mg capsule 25 mg PO TID PRN ALLERGIES 06/21/23 10/05/23 06/20/23 History (Benadryl) ferrous sulfate 325 mg (65 mg 325 mg PO DAILY 06/21/23 10/05/23 06/21/23 History iron) tablet trazodone 100 mg tablet 100 mg PO BEDTIME 06/21/23 10/05/23 06/21/23 History apixaban 2.5 mg tablet (Eliquis) 2.5 mg PO BID #60 tabs 08/03/23 10/05/23 Unknown Rx metoprolol succinate 50 mg 50 mg PO DAILY #30 tabs 08/03/23 10/05/23 Unknown Rx tablet,extended release 24 hr metoprolol tartrate 25 mg tablet 25 mg PO BID #180 tabs 08/03/23 10/05/23 Unknown Rx atorvastatin 80 mg tablet 80 mg PO DAILY #90 tabs 08/04/23 10/05/23 Unknown Rx hydralazine 50 mg tablet 75 mg (1.5 x 50 mg) PO TID #90 tabs 08/04/23 10/05/23 Unknown Rx levothyroxine 25 mcg tablet 50 mcg (2 x 25 mcg) PO DAILY #90 08/04/23 10/05/23 Unknown Rx tabs lisinopril 40 mg tablet 40 mg PO DAILY #30 tabs 08/31/23 10/05/23 Unknown Rx magnesium oxide 400 mg (241.3 mg 400 mg PO DAILY #30 tabs 08/31/23 10/05/23 Unknown Rx magnesium) tablet quetiapine 100 mg tablet (Seroquel) 100 mg PO BID 09/01/23 10/05/23 Unknown History loratadine 10 mg tablet (Claritin) 10 mg PO DAILY #30 tabs 09/09/23 10/05/23 Unknown Rx sulfamethoxazole 800 1 tab PO BID #10 tabs 09/16/23 10/05/23 Unknown Rx mg-trimethoprim 160 mg tablet (Bactrim DS) left arm sling #1 ea 09/17/23 10/05/23 Unknown Rx nifedipine 60 mg tablet,extended 60 mg PO DAILY #90 tabs 09/22/23 10/05/23 Unknown Rx release 24 hr hydrocodone 5 mg-acetaminophen 325 1 tab PO Q6H PRN pain 5 days #20 09/29/23 10/05/23 Unknown Rx mg tablet tabs Allergies Allergy/AdvReac Type Severity Reaction Status Date / Time Iodinated Contrast Media Allergy ITCHING Verified 10/05/23 14:14 PFSH Acute 2 PFSH: Medical History Hyponatremia Bipolar 2 disorder Anxiety Hypothyroidism Diabetes Hypercholesterolemia Syncope Urgency of urination Hypertension Surgical History (Updated 10/05/23 @ 19:26 by Sulaiman Melton MD) Hx of section x 3 Hx of bilateral cataract extraction H/O gastric bypass Family History Grandmother Cancer Hyperlipidemia Hypertension Mother Hypertension CAD (coronary artery disease) unknown age of onset Denies family history of Diabetes Clotting disorder Dementia Chronic kidney disease (CKD) Suicide Anesthesia complication Bleeding disorder Lung disease Stroke Social History Smoking and tobacco/nicotine status: unknown if used tobacco/nicotine Alcohol intake: never Substance/Drug Use: never Marital status: Vitals/I&O/Wt Last Vital Signs Temp 98.0 F 10/05/23 14:04 Pulse 112 H 10/05/23 16:03 BP 91/49 10/05/23 16:03 Pulse Ox 97 10/05/23 16:03 O2 Del Method Room Air 10/05/23 16:03 10/05/23 10/05/23 10/05/23 06:59 14:59 22:59 Intake Total 1582.75 / 1582.75 Balance 1582.75 / 1582.75 Weight last 48 hrs Weight 52.617 kg Physical Exam 2 Narrative: Patient has very short attention span Pupils are symmetrical I do not see any focal deficit Able to move her extremities Able to answer my simple questions at the bedside Patient is aware that she is in the hospital She is able to tell me name of her , she is able to tell me her date of Extremely fatigued and lethargic Hypertensive getting IV fluids Left arm is in a sling S1, S2 A-fib RVR Data 10/05/23 14:33 10/05/23 17:44 Micro: Microbiology 10/05/23 15:36 Blood Culture - Preliminary Blood SPECIMEN COLLECTED A&P Assessment and plan (1) Anxiety: (2) Hypertension: Qualifiers: Hypertension type: unspecified Qualified Code(s): I10 - Essential (primary) hypertension (3) Atrial fibrillation with RVR: (4) Diabetes: (5) Hyponatremia: (6) Dehydration: (7) Urgency of urination: (8) Anemia: (9) Rotator cuff tear, left: (10) Subacromial impingement of left shoulder: (11) Altered mental status: Plan Paroxysmal A-fib with RVR Rate control medications on board Use amiodarone for low blood pressure Continue anticoagulating agent which she stopped earlier this year Confusion Patient has community-acquired pneumonia and sodium 124 Nephro consulted Patient received 2.5 L which improved her sodium no need of hypertonic saline Admit to ICU Neuro evaluation every 4 hours Extremely dehydrated Start IV fluids normal saline Check sodium level every 4 hours Patient has been tapered off Xanax a month ago Left rotator cuff acromioclavicular joint pain Currently arm is in a sling Urine incontinence no signs of UTI Full code I would use regular diet Admit to ICU Attestations 2 Medical Necessity Statement*: More than 2 midnights anticipated Diagnoses Anxiety F41.9 Essential hypertension I10 Hypertension type: unspecified Atrial fibrillation with RVR I48.91 Diabetes E11.9 Hyponatremia E87.1 Dehydration E86.0 Urgency of urination R39.15 Anemia D64.9 Rotator cuff tear, left M75.102 Subacromial impingement of left shoulder M75.42 Altered mental status R41.82
[2023-10-05] MEDS: vancomycin 1,000 MG in sodium chloride 0.9% 250 ML 250 MG IV (16:14)
--- NOTE | 2023-10-05 16:32 | P.CONIM_ITS ---
Providers/Reason For Consult 2 Consulting Physician/Specialty*: adi kan md / telenephrology Reason for Consult*: hyponatremia Requesting Physician: Dr Mcgraw Attending Physician: Sulaiman Melton MD Primary Care Provider: Obey Rose MD History of Present Illness History of Present Illness Trish Rcoha is a 67 year old female History of anxiety and bipolar disease. The patient recently was weaned off of Xanax. The patient is under significant anxiety has not been doing well has been catatonic nonfunctional is not been eating. Per the 's only been drinking a little water. Patient went to see her physician today was having difficulty getting out of a car and an ambulance was called because she is weak and not able to walk. Minimally responsive. The patient has had inpatient psychiatric hospitalizations in the past and was sent back to the emergency room. In the emergency room she was found to be hypotensive hyponatremic mildly elevated BUN and creatinine patient was given 2 L of normal saline. Renal was called to see the patient. Review of Systems 2 Narrative: Weak confused not eating anxious lethargic. Drinking some water at home left arm pain not clear she is taking all of her medications. Medications/Allergies Home Medications Medication Instructions Recorded Confirmed Last Taken Type fluticasone propionate 50 2 spray intranasal DAILY #16 grams 03/05/23 10/05/23 06/21/23 Rx mcg/actuation nasal spray,suspension famotidine 20 mg tablet (Pepcid) 20 mg PO BID #180 tabs 06/10/23 10/05/23 06/21/23 Rx diphenhydramine HCl 25 mg capsule 25 mg PO TID PRN ALLERGIES 06/21/23 10/05/23 06/20/23 History (Benadryl) ferrous sulfate 325 mg (65 mg 325 mg PO DAILY 06/21/23 10/05/23 06/21/23 History iron) tablet trazodone 100 mg tablet 100 mg PO BEDTIME 06/21/23 10/05/23 06/21/23 History apixaban 2.5 mg tablet (Eliquis) 2.5 mg PO BID #60 tabs 08/03/23 10/05/23 Unknown Rx metoprolol succinate 50 mg 50 mg PO DAILY #30 tabs 08/03/23 10/05/23 Unknown Rx tablet,extended release 24 hr metoprolol tartrate 25 mg tablet 25 mg PO BID #180 tabs 08/03/23 10/05/23 Unknown Rx atorvastatin 80 mg tablet 80 mg PO DAILY #90 tabs 08/04/23 10/05/23 Unknown Rx hydralazine 50 mg tablet 75 mg (1.5 x 50 mg) PO TID #90 tabs 08/04/23 10/05/23 Unknown Rx levothyroxine 25 mcg tablet 50 mcg (2 x 25 mcg) PO DAILY #90 08/04/23 10/05/23 Unknown Rx tabs lisinopril 40 mg tablet 40 mg PO DAILY #30 tabs 08/31/23 10/05/23 Unknown Rx magnesium oxide 400 mg (241.3 mg 400 mg PO DAILY #30 tabs 08/31/23 10/05/23 Unknown Rx magnesium) tablet quetiapine 100 mg tablet (Seroquel) 100 mg PO BID 09/01/23 10/05/23 Unknown History loratadine 10 mg tablet (Claritin) 10 mg PO DAILY #30 tabs 09/09/23 10/05/23 Unknown Rx sulfamethoxazole 800 1 tab PO BID #10 tabs 09/16/23 10/05/23 Unknown Rx mg-trimethoprim 160 mg tablet (Bactrim DS) left arm sling #1 ea 09/17/23 10/05/23 Unknown Rx nifedipine 60 mg tablet,extended 60 mg PO DAILY #90 tabs 09/22/23 10/05/23 Unknown Rx release 24 hr hydrocodone 5 mg-acetaminophen 325 1 tab PO Q6H PRN pain 5 days #20 09/29/23 10/05/23 Unknown Rx mg tablet tabs Allergies Allergy/AdvReac Type Severity Reaction Status Date / Time Iodinated Contrast Media Allergy ITCHING Verified 10/05/23 14:14 Current Medications Generic Name Dose Route Start Last Admin Trade Name Freq PRN Reason Stop Dose Admin Amiodarone HCl/Dextrose 360 mg in 200 mls @ 0 mls/hr 10/05/23 15:30 10/05/23 16:19 Nexterone IV 1 mg/min .Q0M KARLA 33.33 mls/hr Administration Protocol Per Protocol PFSH Acute 2 PFSH: Medical History (Updated 10/05/23 @ 16:36 by Ney Kan MD) Hyponatremia Bipolar 2 disorder Anxiety Hypothyroidism Diabetes Hypercholesterolemia Syncope Urgency of urination Hypertension Surgical History H/O gastric bypass Family History Grandmother Cancer Hyperlipidemia Hypertension Mother Hypertension CAD (coronary artery disease) unknown age of onset Denies family history of Diabetes Clotting disorder Dementia Chronic kidney disease (CKD) Suicide Anesthesia complication Bleeding disorder Lung disease Stroke Social History Smoking and tobacco/nicotine status: unknown if used tobacco/nicotine Alcohol intake: never Substance/Drug Use: never Marital status: Vitals/I&O/Wt Last Vital Signs Temp 98.0 F 10/05/23 14:04 Pulse 112 H 10/05/23 16:03 BP 91/49 10/05/23 16:03 Pulse Ox 97 10/05/23 16:03 O2 Del Method Room Air 10/05/23 16:03 10/05/23 10/05/23 10/05/23 06:59 14:59 22:59 Intake Total 1732.75 / 1732.75 Balance 1732.75 / 1732.75 Weight last 48 hrs Weight 52.617 kg Physical Exam 2 Narrative: Examined by audiovisual equipment. Dr. Melton assisted with exam. Vital signs noted blood pressure low mouth appears dry. Neck is supple lungs are clear heart is regular abdomen is soft extremities no edema neuro confused follows some simple commands. Data 10/05/23 14:33 10/05/23 14:33 Micro: Microbiology 10/05/23 15:36 Blood Culture - Preliminary Blood SPECIMEN COLLECTED A&P Assessment and plan (1) Hyponatremia: 67-year-old lady with history of anxiety bipolar disease, hyperlipidemia, hypertension, hypothyroidism. Patiently recently stopped Xanax. Patient is having catatonic issues altered mental status not eating is drinking water at home and while she has underlying hyponatremia with sodium of 134 she has had episodes of more acute hyponatremia down to 128 and 124 in the past. Patient once again presents with acute on chronic hyponatremia. Patient was given 2 L of normal saline. Will repeat chemistries at this time. Will check a TSH. Will also check a cortisol level. Continue normal saline for now. If serum sodium is dropping then she will need hypertonic saline. Medications that can contribute to her hyponatremia include Seroquel and trazodone. Please get a bladder ultrasound patient has history of urinary retention. Mild hypochloremic metabolic acidosis with an anion gap of 15 and an albumin of 3 Urine noted with no ketones. Will check an ABG Further intervention will depend on original workup. Case discussed in detail with . Consent for telehealth obtained from patient's Plan See above. Consult Attestations 2 Medical Necessity Statement: Altered mental status, hyponatremia. Increased anion gap metabolic acidosis Coding Level of Care Code Acute Code for [facility] Diagnoses Hyponatremia E87.1
[2023-10-05] MEDS: sodium chloride 0.9% 500 ML 999 ML IV (16:51)
[2023-10-05 17:17] LABS: Troponin 5 2HR 16.26 ng/L (0-10)
[2023-10-05 17:20] LABS: Troponin 5 2HR Delta -3.74 ABS# (0-10)
[2023-10-05] MEDS: quetiapine 25 mg Tablet 50 MG PO (18:31)
[2023-10-05] MEDS: sodium chloride 0.9% 1,000 ML 100 ML IV (18:32)
[2023-10-05 18:35] LABS: Anion Gap 15.7 (5-19); Blood Urea Nitrogen 25 mg/dL (8-23); Carbon Dioxide 19 mmol/L (22-29); Chloride 97 mmol/L (98-107); Creatinine Clr Calc Pharmacy 62.3265; Glomerular Filtration Rate 83.7 mL/min (90-130); Glucose 99 mg/dL (65-115); Osmolality Calculated 270 mOsm/kg (285-295); Potassium 3.7 mmol/L (3.5-5.1); Sodium 128 mmol/L (136-145); Thyroid Stimulating Hormone 0.87 uIU/mL (0.27-4.20); Uric Acid 4.1 mg/dL (2.4-5.7); Vitamin B12 855 pg/mL (232-1245)
[2023-10-05] MEDS: HYDROcodone-acetaminophen 5-325 mg Tablet 1 TAB PO (19:45)
--- NOTE | 2023-10-05 20:44 | ECG_ITS ---
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 Measurements Intervals [place] Rate: 90 P: 0 GA: 0 QRS: 37 QRSD: 88 T: 30 QT: 372 QTc: 455 Interpretive Statements ATRIAL FIBRILLATION LOW QRS VOLTAGE IN PRECORDIAL LEADS [QRS DEFLECTION < 1.0 mV IN CHEST LEADS] Compared to ECG 10/05/2023 15:58:35 No significant changes Electronically Signed On 10-06-2023 7:53:00 CDT by Sam Robertson M.D. [id number]
[2023-10-05 21:27] LABS: Troponin 5 6HR 16.56 ng/L (0-10)
[2023-10-05 21:31] LABS: Troponin 5 6HR Delta -3.44 ng/L (0-12)
[2023-10-05 22:08] LABS: Sodium 126 mmol/L (136-145)
[2023-10-05 22:33] LABS: Cortisol Random 15.52 ug/dL (2.47-19.5)
[2023-10-05 23:41] LABS: Potassium, Radom Urine 22 mmol/L; Urine Creatinine 67 mg/dL (28-217); Urine Random Chloride 27 mmol/L; Urine Random Sodium 20 mmol/L
[2023-10-06] VITALS (206 sets, daily range): BP systolic 72–144; BP diastolic 45–87; PULSE 61–151; RESP 1–43; TEMP 36.7–37.3; O2SAT 86–100
[2023-10-06 01:05] LABS: Anion Gap 13.5 (5-19); Blood Urea Nitrogen 21 mg/dL (8-23); Calcium 6.9 mg/dL (8.5-10.5); Carbon Dioxide 19 mmol/L (22-29); Chloride 96 mmol/L (98-107); Creatinine Clr Calc Pharmacy 62.3265; Glomerular Filtration Rate 83.7 mL/min (90-130); Glucose 106 mg/dL (65-115); Osmolality Calculated 263 mOsm/kg (285-295); Potassium 3.5 mmol/L (3.5-5.1); Sodium 125 mmol/L (136-145)
--- NOTE | 2023-10-06 01:38 | PC.NURSE ---
Attempted to contact nephrology with most recent sodium level. Message left at this time.
[2023-10-06] MEDS: HYDROcodone-acetaminophen 5-325 mg Tablet 1 TAB PO ×4 (01:39→19:42)
--- NOTE | 2023-10-06 02:12 | PC.NURSE ---
Received call back from nephrology, sodium reported, no new orders
[2023-10-06 05:53] LABS: Basophils % 0.2 %; Eosinophils % 0.3 %; Hematocrit 28.2 % (36-47); Lymphocytes # 1.9 10^3/uL (0.8-4.8); Mean Corpuscular HGB Conc 33.3 g/dL (30-55); Mean Corpuscular Hemoglobin 30.8 pg (27-33); Mean Corpuscular Volume 92.5 fl (85-98); Mean Platelet Volume 10.5 fL (7.4-10.4); Monocytes # 0.6 10^3/uL (0.2-0.9); Monocytes % 9.6 %; Neutrophils # 3.22 10^3/uL (1.8-7.7); Neutrophils % 56.4 %; Nucleated Red Blood Cells % 0 %; Platelet Count 145 10^3/cmm (157-399); Red Blood Count 3.05 10^6/uL (3.85-5.65); Red Cell Distribution Width 13.2 % (12.1-15.1); White Blood Count 5.72 10^3/uL (3.29-11.43)
[2023-10-06 06:25] LABS: Anion Gap 13.6 (5-19); Blood Urea Nitrogen 20 mg/dL (8-23); C Reactive Protein 10.9 mg/L (0.0-4.9); Calcium 7.1 mg/dL (8.5-10.5); Carbon Dioxide 20 mmol/L (22-29); Chloride 100 mmol/L (98-107); Creatinine Clr Calc Pharmacy 63.1983; Glomerular Filtration Rate 83.7 mL/min (90-130); Glucose 112 mg/dL (65-115); Magnesium 1.8 mg/dL (1.7-2.3); Osmolality Calculated 273 mOsm/kg (285-295); Potassium 3.6 mmol/L (3.5-5.1); Sodium 130 mmol/L (136-145)
[2023-10-06 06:26] LABS: Cortisol Random 13.06 ug/dL (2.47-19.5)
[2023-10-06] MEDS: sodium chloride 0.9% 1,000 ML 75 ML IV ×2 (07:34→21:13)
[2023-10-06 07:36] LABS: Slide Review Slide Review Perform
--- NOTE | 2023-10-06 07:39 | PM.PN ---
Subjective Subjective: The patient was seen and examined. The patient complains of back pain. Patient has headaches. She has poor appetite. She has nausea no vomiting. She is on a clear liquid diet. She was not eating well prior to admission. The patient received IV fluids overnight and her sodium has improved and mental status improving. Medications: Reviewed: Yes Medication Review Details: Current Medications Acetaminophen (Acetaminophen 500 Mg Tablet) 500 mg PO Q4H PRN PRN Reason: fever Hydrocodone Bitart/Acetaminophen (Hydrocodone-Acetaminophen 5-325 Mg Tablet) 1 tab PO Q6H PRN PRN Reason: pain Last Admin: 10/06/23 07:34 Dose: 1 tab Albuterol/Ipratropium (Ipratropium-Albuterol 3 Ml Neb) 3 ml INHALATION Q6H PRN PRN Reason: SHORTNESS OF BREATH Apixaban (Apixaban 5 Mg Tablet) 5 mg PO BID [facility] Azithromycin (Azithromycin 250 Mg Tablet) 500 mg PO DAILY [facility]; Protocol Amiodarone HCl/Dextrose (Nexterone) 360 mg in 200 mls @ 0 mls/hr IV .Q0M KARLA; Protocol Last Admin: 10/05/23 22:22 Dose: 0.5 mg/min, 16.67 mls/hr Sodium Chloride (Sodium Chloride 0.9%) 1,000 mls @ 75 mls/hr IV .[id number] KARLA Last Admin: 10/06/23 07:34 Dose: 75 mls/hr Ceftriaxone Sodium 1,000 mg/ (Sodium Chloride) 50 mls @ 100 mls/hr IV DAILY [facility]; Protocol Vancomycin/PEG/NADA/Lysine/Water (Vancocin) 1,250 mg in 250 mls @ 250 mls/hr IV Q24H [facility] Levothyroxine Sodium (Levothyroxine 50 Mcg Tablet) 50 mcg PO DAILY [facility] Metoprolol Tartrate (Metoprolol Tartrate 25 Mg Tablet) 25 mg PO BID [facility] Last Admin: 10/05/23 18:13 Dose: Not Given Ondansetron HCl (Ondansetron 2 Mg/Ml Sdv 2 Ml) 4 mg IVP Q6H PRN PRN Reason: NAUSEA AND VOMITING Quetiapine Fumarate (Quetiapine 25 Mg Tablet) 50 mg PO BID [facility] Last Admin: 10/05/23 18:31 Dose: 50 mg Vitals/I&O/Wt Last Vital Signs Temp 98.7 F 10/06/23 06:00 Pulse 93 10/06/23 06:01 Resp 18 10/06/23 06:00 BP 114/68 10/06/23 06:00 Pulse Ox 96 10/06/23 06:00 O2 Del Method Room Air 10/05/23 17:42 10/05/23 10/06/23 10/06/23 22:59 06:59 14:59 Intake Total 3031.083 / 3031.083 240 / 3271.083 891.667 / 891.667 Output Total 1250 / 1250 Balance 3031.083 / 3031.083 -1010 / 2021.083 891.667 / 891.667 Weight last 48 hrs Weight 72.983 kg Weight 70.987 kg Weight 52.617 kg Physical Exam Narrative: Examined by audiovisual equipment. Vital signs noted. Blood pressure improved. Vital signs are stable. HEENT normocephalic atraumatic. Neck is supple lungs are clear heart is regular positive S1-S2 regular abdomen is soft positive bowel sounds nontender. Extremities no edema she is able to move. Neuro more awake alert more oriented. Remains weak. Urinary Catheter Management: Gould: Cath Placed During This Visit: yes Reason for Continuing Indwelling Catheter: Accurate Measurement of Urinary Output in Critically Ill Patients Urinary Catheter Date of Insertion: 10/05/23 Data 10/06/23 05:28 10/06/23 05:28 Micro: Microbiology 10/05/23 15:36 Blood Culture - Preliminary Blood 10/05/23 16:24 Blood Culture - Preliminary Blood SPECIMEN COLLECTED A&P Assessment and plan (1) Hyponatremia: 67-year-old lady with history of anxiety bipolar disease, hyperlipidemia, hypertension, hypothyroidism. Patiently recently stopped Xanax. Patient is having catatonic issues altered mental status not eating is drinking water at home and while she has underlying hyponatremia with sodium of 134 she has had episodes of more acute hyponatremia down to 128 and 124 in the past. Patient once again presents with acute on chronic hyponatremia. 1. Acute on chronic hyponatremia. Low urine sodium is consistent with the patient not eating well and drinking water. Continue fluid restriction and give her normal saline and monitor chemistries. I am also concerned that she may have some degree of SIADH and her baseline sodium may be around 134. -TSH was normal. Cortisol level 13 and 15 likely acceptable. If serum sodium does not normalize can consider performing a cosyntropin stim test. Patient was given 2 L of normal saline. Will repeat chemistries at this time. Medications that can contribute to her hyponatremia include Seroquel and trazodone. Please get a bladder ultrasound patient has history of urinary retention. 2. Anemia as per medicine. 3. Replace potassium and magnesium. Continue to monitor electrolytes and adjust medications as per chemistries. -- Patient's mental status is improving. Case discussed with patient's nurse. The patient was seen and examined using A/V equipment with the aid of her nurse. Plan See above. Attestations Medical Necessity Statement*: Improving altered mental status hyponatremia. Time Spent in Patient Care: 16 - 35 minutes (>than 50% of time spent in counselling and/or direct pt care on unit). Coding Level of Care Code Acute Code for [facility] Diagnoses Hyponatremia E87.1
[2023-10-06] MEDS: potassium chloride ER 20 mEq Tablet 40 MEQ PO (08:36)
[2023-10-06] MEDS: levothyroxine 50 mcg Tablet PO (08:36)
[2023-10-06] MEDS: azithromycin 250 mg Tablet 500 MG PO (08:36)
[2023-10-06] MEDS: magnesium oxide 400 mg tablet PO ×2 (08:37→17:16)
[2023-10-06] MEDS: metoprolol tartrate 25 mg Tablet PO ×2 (08:37→17:16)
[2023-10-06] MEDS: quetiapine 25 mg Tablet 50 MG PO ×2 (08:37→17:16)
[2023-10-06] MEDS: cefTRIAXone 1,000 MG in sodium chloride 0.9% (plus) 50 ML 100 MG IV (08:38)
--- NOTE | 2023-10-06 09:51 | P.PN_ITS ---
Subjective 2 Subjective: This morning patient worked with PT to some extent Was able to follow simple commands, Sodium is improving Still in A-fib RVR Sitting in a chair Wanting to eat Change diet to regular Vitals/I&O/Wt Last Vital Signs Temp 98.7 F 10/06/23 06:00 Pulse 114 H 10/06/23 07:50 Resp 20 H 10/06/23 07:50 BP 105/76 10/06/23 08:00 Pulse Ox 96 10/06/23 07:50 O2 Del Method Room Air 10/05/23 17:42 10/05/23 10/06/23 10/06/23 22:59 06:59 14:59 Intake Total 3031.083 / 3031.083 240 / 3271.083 1421.667 / 1421.667 Output Total 1250 / 1250 Balance 3031.083 / 3031.083 -1010 / 2021.083 1421.667 / 1421.667 Weight last 48 hrs Weight 72.983 kg Weight 70.987 kg Weight 52.617 kg Physical Exam 2 Narrative: Able to follow simple commands Pleasant and cooperative She was able to recall our encounter from yesterday Oriented to place and person but not time Abdomen soft Still clinically looking dehydrated Wanting to eat Slightly more awake and alert as compared to yesterday Attention span is still very short S1, S2 variable with A-fib RVR Currently on amiodarone drip Urinary Catheter Management: Gould: Cath Placed During This Visit: yes Reason for Continuing Indwelling Catheter: Accurate Measurement of Urinary Output in Critically Ill Patients Urinary Catheter Date of Insertion: 10/05/23 Data 10/06/23 05:28 10/06/23 05:28 Micro: Microbiology 10/06/23 07:39 Blood Culture - Preliminary Blood SPECIMEN COLLECTED 10/06/23 07:37 Blood Culture - Preliminary Blood SPECIMEN COLLECTED 10/05/23 15:36 Blood Culture - Preliminary Blood 10/05/23 16:24 Blood Culture - Preliminary Blood SPECIMEN COLLECTED A&P Assessment and plan (1) Bipolar 2 disorder: (2) Atrial fibrillation with RVR: (3) Hypothyroidism: (4) Hyponatremia: (5) Diabetes: (6) Dehydration: (7) Anemia: (8) Subacromial impingement of left shoulder: (9) Rotator cuff tear, left: (10) Altered mental status: Plan Metabolic encephalopathy Related to hyponatremia &Community-acquired pneumonia Short attention span Hyponatremia improving with gentle fluid hydration Appreciate nephro recommendations with rechecking CMP at noon for now we will continue IV fluids Continue ceftriaxone and dc azithromycin A-fib RVR continue amiodarone with Eliquis Once her blood pressure improves will increase the dose of metoprolol to 50 mg twice a day instead of 25 mg, Blood culture preliminary positive with gram-positive cocci she has been put on vancomycin overnight she is afebrile, rule out contamination repeat cultures done overnight Continue IV fluids at 75 mill per hour Regular diet Patient not interested in longterm placement Will touch base with the 1 more time Can be transferred out of ICU if sodium keeps improving Attestations 2 Medical Necessity Statement*: Continue medical management Diagnoses Bipolar 2 disorder F31.81 Atrial fibrillation with RVR I48.91 Hypothyroidism E03.9 Hyponatremia E87.1 Diabetes E11.9 Dehydration E86.0 Anemia D64.9 Subacromial impingement of left shoulder M75.42 Rotator cuff tear, left M75.102 Altered mental status R41.82
[2023-10-06 12:35] LABS: Alanine Aminotransferase 25 U/L (0-33); Albumin Level 2.4 g/dL (3.5-5.2); Alkaline Phosphatase 69 U/L (35-105); Anion Gap 11.7 (5-19); Aspartate Amino Transferase 33 U/L (0-32); Blood Urea Nitrogen 17 mg/dL (8-23); Calcium 7.1 mg/dL (8.5-10.5); Carbon Dioxide 20 mmol/L (22-29); Chloride 100 mmol/L (98-107); Creatinine Clr Calc Pharmacy 63.1983; Globulin 2.7 g/dL (1.3-4.6); Glucose 111 mg/dL (65-115); Osmolality Calculated 268 mOsm/kg (285-295); Potassium 3.7 mmol/L (3.5-5.1); Sodium 128 mmol/L (136-145); Total Bilirubin 0.2 mg/dL (0.15-1.2); Total Protein 5.1 g/dL (6.6-8.7)
--- NOTE | 2023-10-06 13:05 | PHA.VACGOAL ---
Vancomycin Goal - Goal Vancomycin Goal:: 10-15 mg/L Vancomycin Indication:: Pneumonia - Therapy Current therapy:: Other Antibiotic (CEFTRIAXONE 1000 MG Q24H) Day of therpy:: Day 1 Actual body weight (kg): 160 lb 14.4 oz [place] body weight: 47.8 KG Dosing weight (kg): 57.9 - Data Labs: WBC 5.72 10^3/uL (3.29-11.43) 10/06/23 05:28 RBC 3.05 10^6/uL (3.85-5.65) L 10/06/23 05:28 Hgb 9.40 g/dL (11.27-16.99) L 10/06/23 05:28 Hct 28.2 % (36-47) L 10/06/23 05:28 MCV 92.5 fl (85-98) 10/06/23 05:28 MCH 30.8 pg (27-33) 10/06/23 05:28 MCHC 33.3 g/dL (30-55) 10/06/23 05:28 RDW 13.2 % (12.1-15.1) 10/06/23 05:28 Sodium 128 mmol/L (136-145) L 10/06/23 11:52 Potassium 3.7 mmol/L (3.5-5.1) 10/06/23 11:52 Chloride 100 mmol/L (98-107) 10/06/23 11:52 Carbon Dioxide 20 mmol/L (22-29) L 10/06/23 11:52 Anion Gap 11.7 (5-19) 10/06/23 11:52 BUN 17 mg/dL (8-23) 10/06/23 11:52 Creatinine 0.6 mg/dL (0.5-0.9) 10/06/23 11:52 GFR Calculation 100.0 mL/min (90-130) 10/06/23 11:52 Last dialysis session:: N/A Treatment plan:: new consult Regimen:: 1250 mg Q24H Follow up:: Trough to be drawn prior to 4th dose
[2023-10-06] MEDS: vancomycin 1,250 MG/250 ML PIGGYBACK 250 MG IV (16:07)
[2023-10-06] MEDS: acetaminophen 500 mg Tablet PO ×2 (16:49→23:19)
[2023-10-06] MEDS: apixaban 5 mg Tablet PO (17:16)
[2023-10-06] MEDS: amiodarone 200 mg Tablet 400 MG PO (17:16)
--- NOTE | 2023-10-06 17:29 | PC.NURSE ---
Amio gtt stopped per Dr. Melton, PO amio started per APR and Dr. Myles orders. Patient currently in NSR
--- NOTE | 2023-10-06 20:21 | PC.NURSE ---
Report called to Devin on Medsurg. Patient transferred to room 251-2 in wheelchair with belongings.
[2023-10-07 00:22] VITALS: BP 118/63; PULSE 76; RESP 16; TEMP 36.7; O2SAT 94
[2023-10-07] MEDS: HYDROcodone-acetaminophen 5-325 mg Tablet 1 TAB PO ×2 (02:25→07:48)
[2023-10-07 04:00] VITALS: BP 143/70; PULSE 83; RESP 16; TEMP 36.4; O2SAT 90
[2023-10-07] MEDS: acetaminophen 500 mg Tablet PO (05:44)
[2023-10-07 05:59] LABS: Basophils % 0.2 %; Eosinophils % 0.6 %; Hematocrit 28.8 % (36-47); Lymphocytes # 2.3 10^3/uL (0.8-4.8); Lymphocytes % 42.9 %; Mean Corpuscular HGB Conc 33.3 g/dL (30-55); Mean Corpuscular Hemoglobin 30.7 pg (27-33); Monocytes # 0.7 10^3/uL (0.2-0.9); Monocytes % 12.4 %; Nucleated Red Blood Cells % 0 %; Platelet Count 205 10^3/cmm (157-399); Red Blood Count 3.13 10^6/uL (3.85-5.65); Red Cell Distribution Width 13.4 % (12.1-15.1); White Blood Count 5.34 10^3/uL (3.29-11.43)
[2023-10-07 06:18] LABS: Alanine Aminotransferase 29 U/L (0-33); Albumin Level 2.6 g/dL (3.5-5.2); Alkaline Phosphatase 59 U/L (35-105); Anion Gap 12.8 (5-19); Aspartate Amino Transferase 34 U/L (0-32); Blood Urea Nitrogen 13 mg/dL (8-23); Calcium 7.5 mg/dL (8.5-10.5); Carbon Dioxide 20 mmol/L (22-29); Chloride 106 mmol/L (98-107); Creatinine Clr Calc Pharmacy 60.0481; Globulin 2.4 g/dL (1.3-4.6); Glucose 96 mg/dL (65-115); Osmolality Calculated 280 mOsm/kg (285-295); Potassium 3.8 mmol/L (3.5-5.1); Sodium 135 mmol/L (136-145); Total Bilirubin 0.3 mg/dL (0.15-1.2)
[2023-10-07 07:22] LABS: Slide Review Slide Review Perform
[2023-10-07 07:27] VITALS: BP 157/77; PULSE 78; RESP 20; TEMP 36.3; O2SAT 95
[2023-10-07] MEDS: quetiapine 25 mg Tablet 50 MG PO (07:48)
[2023-10-07] MEDS: amiodarone 200 mg Tablet 400 MG PO (07:49)
[2023-10-07] MEDS: metoprolol tartrate 25 mg Tablet PO (07:49)
[2023-10-07] MEDS: magnesium oxide 400 mg tablet PO (07:49)
[2023-10-07] MEDS: apixaban 5 mg Tablet PO (07:49)
[2023-10-07] MEDS: cefTRIAXone 1,000 MG in sodium chloride 0.9% (plus) 50 ML 100 MG IV (07:49)
[2023-10-07] MEDS: levothyroxine 50 mcg Tablet PO (07:49)
--- NOTE | 2023-10-07 07:59 | PC.SOCIAL ---
IMM Updated Updated pt on IMM. No questions voiced. Provided pt a copy. Initialed, dated, & timed a copy & placed in chart.
--- NOTE | 2023-10-07 08:25 | PM.PN ---
Subjective Subjective: feels better. more awake. states she is eating. ec pain. denies nausea Medications: Reviewed: Yes Medication Review Details: Current Medications Acetaminophen (Acetaminophen 500 Mg Tablet) 500 mg PO Q4H PRN PRN Reason: fever and/or moderate pain Last Admin: 10/07/23 05:44 Dose: 500 mg Hydrocodone Bitart/Acetaminophen (Hydrocodone-Acetaminophen 5-325 Mg Tablet) 1 tab PO Q6H PRN PRN Reason: pain Last Admin: 10/07/23 07:48 Dose: 1 tab Albuterol/Ipratropium (Ipratropium-Albuterol 3 Ml Neb) 3 ml INHALATION Q6H PRN PRN Reason: SHORTNESS OF BREATH Amiodarone HCl (Amiodarone 200 Mg Tablet) 400 mg PO BID [facility] Last Admin: 10/07/23 07:49 Dose: 400 mg Apixaban (Apixaban 5 Mg Tablet) 5 mg PO BID [facility] Last Admin: 10/07/23 07:49 Dose: 5 mg Sodium Chloride (Sodium Chloride 0.9%) 1,000 mls @ 75 mls/hr IV .[id number] [facility] Last Admin: 10/06/23 21:13 Dose: 75 mls/hr Ceftriaxone Sodium 1,000 mg/ (Sodium Chloride) 50 mls @ 100 mls/hr IV DAILY [facility]; Protocol Last Admin: 10/07/23 07:49 Dose: 100 mls/hr Vancomycin/PEG/NADA/Lysine/Water (Vancocin) 1,250 mg in 250 mls @ 250 mls/hr IV Q24H [facility] Last Infusion: 10/06/23 17:07 Dose: Infused Lanolin (Lanolin Oint 7 Gm) 1 applic TOPICAL PRN PRN PRN Reason: DRYNESS Levothyroxine Sodium (Levothyroxine 50 Mcg Tablet) 50 mcg PO DAILY [facility] Last Admin: 10/07/23 07:49 Dose: 50 mcg Lidocaine (Lidocaine 5% Patch) 1 patch TOPICAL [id number] [facility] Magnesium Oxide (Magnesium Oxide 400 Mg Tablet) 400 mg PO BID [facility] Last Admin: 10/07/23 07:49 Dose: 400 mg Metoprolol Tartrate (Metoprolol Tartrate 25 Mg Tablet) 25 mg PO BID [facility] Last Admin: 10/07/23 07:49 Dose: 25 mg Ondansetron HCl (Ondansetron 2 Mg/Ml Sdv 2 Ml) 4 mg IVP Q6H PRN PRN Reason: NAUSEA AND VOMITING Quetiapine Fumarate (Quetiapine 25 Mg Tablet) 50 mg PO BID [facility] Last Admin: 10/07/23 07:48 Dose: 50 mg Vitals/I&O/Wt Last Vital Signs Temp 97.3 F L 10/07/23 07:27 Pulse 78 10/07/23 07:27 Resp 20 H 10/07/23 07:27 BP 157/77 10/07/23 07:27 Pulse Ox 95 10/07/23 07:27 O2 Del Method Room Air 10/07/23 07:27 10/06/23 10/07/23 10/07/23 22:59 06:59 14:59 Intake Total 1370.858 / 2983.952 120 / 120 Output Total 1100 / 1100 550 / 1650 Balance 270.858 / 1883.952 -550 / 1333.952 120 / 120 Weight last 48 hrs Weight 65.771 kg Weight 72.983 kg Weight 70.987 kg Weight 52.617 kg Physical Exam Narrative: Examined by audiovisual equipment. Vital signs noted. HEENT normocephalic atraumatic. Neck is supple lungs are clear heart is regular positive S1-S2 regular abdomen is soft positive bowel sounds nontender. Extremities no edema she is able to move. Neuro awake, alert more oriented. Remains weak. Urinary Catheter Management: Gould: Cath Placed During This Visit: yes Reason for Continuing Indwelling Catheter: Other Urinary Catheter Date of Insertion: 10/05/23 Data 10/07/23 05:50 10/07/23 05:50 Micro: Microbiology 10/06/23 07:39 Blood Culture - Preliminary Blood NEGATIVE TO DATE 10/06/23 07:37 Blood Culture - Preliminary Blood NEGATIVE TO DATE 10/05/23 16:24 Blood Culture - Preliminary Blood NEGATIVE TO DATE 10/05/23 15:36 Blood Culture - Preliminary Blood A&P Assessment and plan (1) Hyponatremia: 67-year-old lady with history of anxiety bipolar disease, hyperlipidemia, hypertension, hypothyroidism. Patiently recently stopped Xanax. Patient is having catatonic issues altered mental status not eating is drinking water at home and while she has underlying hyponatremia with sodium of 134 she has had episodes of more acute hyponatremia down to 128 and 124 in the past. Patient once again presents with acute on chronic hyponatremia. 1. Acute on chronic hyponatremia. Low urine sodium is consistent with the patient not eating well and drinking water. Continue fluid restriction and give her normal saline and monitor chemistries. I am also concerned that she may have some degree of SIADH and her baseline sodium may be around 134. -TSH was normal. Cortisol level 13 and 15 likely acceptable. sodium has improved -continue fluid restriction Medications that can contribute to her hyponatremia include Seroquel and trazodone. Please get a bladder ultrasound patient has history of urinary retention. 2. Anemia as per medicine. 3. monitor electrolytes and replete as needed Continue to monitor electrolytes and adjust medications as per chemistries. -- Patient's mental status is improving. Case discussed with patient's nurse. The patient was seen and examined using A/V equipment with the aid of her nurse. renal will sign off. please call if we can be of assistance. Plan See above. Attestations Medical Necessity Statement*: per hospitalist Time Spent in Patient Care: 16 - 35 minutes (>than 50% of time spent in counselling and/or direct pt care on unit). Coding Level of Care Code Acute Code for [facility] Fwd Diagnoses Hyponatremia E87.1
[2023-10-07] MEDS: lidocaine 5% Patch 1 PATCH TOPICAL (08:28)
--- NOTE | 2023-10-07 09:50 | PM.DCS ---
Discharge Providers Date of Admission: 10/05/23 16:00 Date of Discharge: October 07, 2023 Attending Provider at Admission: Sulaiman Melton MD Attending Provider at Discharge: Sulaiman Melton MD Primary Care Provider: Obey Rose MD Diagnoses at Discharge Discharge Diagnosis (1) Hyponatremia: Status: Resolved Reason for Visit Reason for Visit: Dr. Harley sent over Anxiety Hospital Course Hospital Course 67-year-old female who was admitted for management evaluation of confusion, as per the she has been experiencing poor attention span for the last week or so, she was hyponatremic on admission with sodium 124, no signs of UTI, she was diagnosed with left lower lobe infiltrate as well, she was given 2500 mL bolus of normal saline because she was hypotensive with A-fib RVR her sodium improved to 128 nephro was consulted for further management of hyponatremia, she was kept on normal saline at 75 mL/h, she was extremely dehydrated, patient was not able to eat or drink in last few weeks, for A-fib RVR she was put on amiodarone drip, she converted to sinus rhythm. at the time of discharge she will get high dose of metoprolol 75 mg twice a day along amiodarone 400 mg daily and Coumadin. Patient is stating that she is not able to afford $400 of Eliquis every month and wanting to get INR checked. I have asked Dr. Roes to keep an eye on her INR goal of 2-3. Patient had an MRI of her shoulder scheduled for today which I am planning to arrange after I put in discharge orders for her. Charge nurse to coordinate. Etiology of hyponatremia seems to be poor p.o. intake clinically she is extremely dehydrated with hypovolemia. IV fluids improved her sodium. Patient has been counseled. I have added escitalopram for her bipolar disorder she has been tapered off of Xanax successfully. She is full code. Sodium at the time of discharge is 135. She has been afebrile without leukocytosis I would not continue antibiotics at discharge. Physical Exam Narrative: Signs of dehydration improving GCS 15 Left shoulder in a sling Pleasant and cooperative Attention span has improved No pupillary asymmetry Able to work with PT Has been at the bedside S1, S2 sinus rhythm Blood pressure stable Hypertensive Currently on room air Urinary Catheter Management: Gould: Cath Placed During This Visit: yes Reason for Continuing Indwelling Catheter: Other Urinary Catheter Date of Insertion: 10/05/23 Discharge Data Studies Completed and Pending Completed Studies During Hospitalization Category Date Time Status CT head wo con* [id number] Stat Cat Scan 10/05/23 14:25 Completed CXRP [XR chest 1V portable [id number]] Stat Exams 10/05/23 14:25 Completed Pending at discharge Category Date Time Status Blood Culture Stat Lab 10/05/23 16:24 Results Blood Culture Stat Lab 10/06/23 07:39 Results Comprehensive Metabolic Panel AM LABS Lab 10/08/23 04:00 Ordered Comprehensive Metabolic Panel AM LABS Lab 10/08/23 04:00 Ordered Comprehensive Metabolic Panel AM LABS Lab 10/09/23 04:00 Ordered Comprehensive Metabolic Panel AM LABS Lab 10/09/23 04:00 Ordered Comprehensive Metabolic Panel AM LABS Lab 10/10/23 04:00 Ordered Magnesium AM LABS Lab 10/08/23 04:00 Ordered Magnesium AM LABS Lab 10/09/23 04:00 Ordered Magnesium AM LABS Lab 10/10/23 04:00 Ordered Phosphorus AM LABS Lab 10/08/23 04:00 Ordered Phosphorus AM LABS Lab 10/09/23 04:00 Ordered Phosphorus AM LABS Lab 10/10/23 04:00 Ordered Vancomycin Trough Routine Lab 10/07/23 15:00 Ordered Radiology Impressions Chest X-Ray 10/05/23 14:25 IMPRESSION: Small area of infiltrate in the left base. Head CT 10/05/23 14:25 IMPRESSION: 1. No acute intracranial hemorrhage or edema. 2. Mild cerebral atrophy and mild small vessel ischemic disease. Laboratory Results WBC 5.34 10^3/uL (3.29-11.43) 10/07/23 05:50 RBC 3.13 10^6/uL (3.85-5.65) L 10/07/23 05:50 Hgb 9.60 g/dL (11.27-16.99) L 10/07/23 05:50 Hct 28.8 % (36-47) L 10/07/23 05:50 MCV 92.0 fl (85-98) 10/07/23 05:50 MCH 30.7 pg (27-33) 10/07/23 05:50 MCHC 33.3 g/dL (30-55) 10/07/23 05:50 RDW 13.4 % (12.1-15.1) 10/07/23 05:50 Plt Count 205 10^3/cmm (157-399) D 10/07/23 05:50 MPV 10.0 fL (7.4-10.4) 10/07/23 05:50 Neut % (Auto) 43.0 % 10/07/23 05:50 Lymph % (Auto) 42.9 % 10/07/23 05:50 [place] % (Auto) 12.4 % 10/07/23 05:50 Eos % (Auto) 0.6 % 10/07/23 05:50 Baso % (Auto) 0.2 % 10/07/23 05:50 Neut # (Auto) 2.30 10^3/uL (1.8-7.7) 10/07/23 05:50 Lymph # (Auto) 2.3 10^3/uL (0.8-4.8) 10/07/23 05:50 [place] # (Auto) 0.7 10^3/uL (0.2-0.9) 10/07/23 05:50 Eos # (Auto) 0.0 10^3/uL (0.0-0.8) 10/07/23 05:50 Baso # (Auto) 0.0 10^3/uL (0.0-0.1) 10/07/23 05:50 Nucleated RBC % (auto) 0 % 10/07/23 05:50 Nucleated RBCs # 0.0 /100WBC 10/07/23 05:50 PT 12.50 SECONDS (12.1-14.9) 10/05/23 14:33 INR 0.91 (0.8-1.2) 10/05/23 14:33 Sodium 135 mmol/L (136-145) L 10/07/23 05:50 Potassium 3.8 mmol/L (3.5-5.1) 10/07/23 05:50 Chloride 106 mmol/L (98-107) 10/07/23 05:50 Carbon Dioxide 20 mmol/L (22-29) L 10/07/23 05:50 Anion Gap 12.8 (5-19) 10/07/23 05:50 BUN 13 mg/dL (8-23) 10/07/23 05:50 Creatinine 0.6 mg/dL (0.5-0.9) 10/07/23 05:50 GFR Calculation 100.0 mL/min (90-130) 10/07/23 05:50 Glucose 96 mg/dL (65-115) 10/07/23 05:50 Calculated Osmolality 280 mOsm/kg (285-295) L 10/07/23 05:50 Lactic Acid 1.9 mmol/L (0.5-2.2) 10/05/23 14:33 Uric Acid 4.1 mg/dL (2.4-5.7) 10/05/23 17:44 Calcium 7.5 mg/dL (8.5-10.5) L 10/07/23 05:50 Magnesium 1.8 mg/dL (1.7-2.3) 10/06/23 05:28 Total Bilirubin 0.3 mg/dL (0.15-1.2) 10/07/23 05:50 AST 34 U/L (0-32) H 10/07/23 05:50 ALT 29 U/L (0-33) 10/07/23 05:50 Alkaline Phosphatase 59 U/L (35-105) 10/07/23 05:50 Troponin T Baseline 20 ng/L (0-10) H 10/05/23 14:33 Troponin T 120 Minute 16.26 ng/L (0-10) H 10/05/23 16:18 Delta Troponin T -3.74 ABS# (0-10) L 10/05/23 16:18 Troponin T Hi Sens 6Hr 16.56 ng/L (0-10) H 10/05/23 20:56 Troponin T Hi Sens 6Hr Delta -3.44 ng/L (0-12) L 10/05/23 20:56 C-Reactive Protein 10.9 mg/L (0.0-4.9) H 10/06/23 05:28 Total Protein 5.0 g/dL (6.6-8.7) L 10/07/23 05:50 Albumin 2.6 g/dL (3.5-5.2) L 10/07/23 05:50 Globulin 2.4 g/dL (1.3-4.6) 10/07/23 05:50 Vitamin B12 855 pg/mL (232-1245) 10/05/23 17:44 TSH 0.87 uIU/mL (0.27-4.20) 10/05/23 17:44 Random Cortisol 13.06 ug/dL (2.47-19.5) 10/06/23 05:28 Urine Color Yellow (Yellow) 10/05/23 15:14 Urine Appearance Clear (CLEAR) 10/05/23 15:14 Urine pH 6.0 (5-7) 10/05/23 15:14 Ur Specific [place] 1.016 (1.005-1.030) 10/05/23 15:14 Urine Protein 1+ (Negative) A 10/05/23 15:14 Urine Glucose (UA) Negative (Normal) 10/05/23 15:14 Urine Ketones Negative (Negative) 10/05/23 15:14 Urine Blood Negative (Negative) 10/05/23 15:14 Urine Nitrate Negative (Negative) 10/05/23 15:14 Urine Bilirubin Negative (Negative) 10/05/23 15:14 Urine Urobilinogen 1.0 mg/dL (Negative) 10/05/23 15:14 Ur Leukocyte Esterase Negative (Negative) 10/05/23 15:14 Urine RBC 0-2 /hpf (0-2) 10/05/23 15:14 Urine WBC 0-5 /hpf (0-5) 10/05/23 15:14 Ur Squamous Epith Cells 0-5 /hpf (0-5) 10/05/23 15:14 Amorphous Sediment Not Reportable 10/05/23 15:14 Urine Bacteria None seen /hpf (NONE) 10/05/23 15:14 Hyaline Casts 7.85 /lpf 10/05/23 15:14 Ur Random Sodium 20 mmol/L 10/05/23 23:20 Ur Random Potassium 22 mmol/L 10/05/23 23:20 Ur Random Chloride 27 mmol/L 10/05/23 23:20 Ur Random Chloride Cancelled 10/05/23 23:20 Urine Creatinine 67 mg/dL (28-217) 10/05/23 23:20 Salicylates < 0.3 mg/dL (3-10) L 10/05/23 14:33 Urine Opiates Screen Positive ng/mL (Negative) H 10/05/23 15:14 Acetaminophen < 5.0 ug/mL (10-30) L 10/05/23 14:33 Ur Barbiturates Screen Negative ng/mL (Negative) 10/05/23 15:14 Ur Phencyclidine Scrn Negative ng/mL (Negative) 10/05/23 15:14 Ur Amphetamines Screen Negative ng/mL (Negative) 10/05/23 15:14 U Benzodiazepines Scrn Negative ng/mL (Negative) 10/05/23 15:14 Urine Cocaine Screen Negative ng/mL (Negative) 10/05/23 15:14 U Marijuana (THC) Screen Negative ng/mL (Negative) 10/05/23 15:14 Ethyl Alcohol < 10 mg/dL (0-10) 10/05/23 14:33 Vitals Last Vital Signs Temp 97.3 F L 10/07/23 07:27 Pulse 78 10/07/23 07:27 Resp 20 H 10/07/23 07:27 BP 157/77 10/07/23 07:27 Pulse Ox 95 10/07/23 07:27 O2 Del Method Room Air 10/07/23 07:27 Discharge Plan Discharge Patient Disposition: Home Condition: Stable Prescriptions: New metoprolol tartrate 25 mg Tablet 75 mg PO BID Qty: 90 10RF warfarin 4 mg tablet 4 mg PO DAILY Qty: 90 4RF sodium chloride 1,000 mg tablet,soluble 1,000 mg PO DAILY Qty: 7 0RF escitalopram oxalate 10 mg tablet 10 mg PO DAILY Qty: 60 2RF Continued (DME) left arm sling See Rx Instructions .Route .MEDSUPPLY Qty: 1 0RF Rx Instructions: As directed fluticasone propionate 50 mcg/actuation spray,suspension 2 spray intranasal DAILY Qty: 16 11RF famotidine [Pepcid] 20 mg tablet 20 mg PO BID Qty: 180 11RF hydralazine 50 mg tablet 75 mg PO TID Qty: 90 11RF levothyroxine 25 mcg tablet 50 mcg PO DAILY Qty: 90 11RF lisinopril 40 mg tablet 40 mg PO DAILY Qty: 30 11RF magnesium oxide 400 mg (241.3 mg magnesium) tablet 400 mg PO DAILY Qty: 30 3RF loratadine [Claritin] 10 mg tablet 10 mg PO DAILY Qty: 30 11RF hydrocodone-acetaminophen 5-325 mg tablet 1 tab PO Q6H PRN (Reason: pain) 5 Days Qty: 20 0RF diphenhydramine HCl [Benadryl] 25 mg Capsule 25 mg PO TID PRN (Reason: ALLERGIES) ferrous sulfate 325 mg (65 mg iron) tablet 325 mg PO DAILY Discontinued metoprolol succinate 50 mg tablet extended release 24 hr 50 mg PO DAILY Qty: 30 11RF Eliquis 2.5 mg tablet 2.5 mg PO BID Qty: 60 11RF quetiapine [Seroquel] 100 mg tablet 100 mg PO BID atorvastatin 80 mg tablet 80 mg PO DAILY Qty: 90 3RF nifedipine 60 mg tablet extended release 24hr 60 mg PO DAILY Qty: 90 3RF trazodone 100 mg tablet 100 mg PO BEDTIME Discharge Orders: Discharge Order (Routine); Ordered 10/07/23 Ordered By: Sulaiman Melton Other Ambulatory Orders: Prothrombin Time INR ( DIRECTED) Timeframe: 20231014 Facility: [facility] - Location: Lab - Main Lab Ordered By: Sulaiman Melton Prothrombin Time INR ( DIRECTED) Timeframe: 20231015 Facility: [facility] - Location: Lab - Main Lab Ordered By: Sulaiman Melton Prothrombin Time INR ( DIRECTED) Timeframe: 20231016 Facility: [facility] - Location: Lab - Main Lab Ordered By: Sulaiman Melton Prothrombin Time INR ( DIRECTED) Timeframe: 20231017 Facility: [facility] - Location: Lab - Main Lab Ordered By: Sulaiman Melton Prothrombin Time INR ( DIRECTED) Timeframe: 20231018 Facility: [facility] - Location: Lab - Main Lab Ordered By: Sulaiman Melton Prothrombin Time INR ( DIRECTED) Timeframe: 20231019 Facility: [facility] - Location: Lab - Main Lab Ordered By: Sulaiman Melton Prothrombin Time INR ( DIRECTED) Timeframe: 20231020 Facility: [facility] - Location: Lab - Main Lab Ordered By: Sulaiman Melton Referrals: Obey Rose MD [Primary Care Provider] - 7-10 days Discharge Diet: Regular Discharge Activity: Increase activity as tolerated Patient Instructions: Atrial Fibrillation, Metoprolol (By mouth), Warfarin (By mouth), Escitalopram (By mouth), Sodium Chloride (By mouth), Hyponatremia, Altered Mental Status (ED), Opioid Safety Discharge Attestations Time Spent in Discharge Care*: greater than 30 min Quality Metrics Clinical Quality Measures [ No reported AMI, CVA or VTE this stay] Coding Level of Care Code Acute Code for [facility] Fwd Diagnoses Hyponatremia E87.1
[2023-10-07 11:45] VITALS: BP 151/77; PULSE 69; RESP 18; TEMP 36.3; O2SAT 97
== END 2023-10-07 12:32 | disposition home or self-care (01) | DRG 640 ==
LOC: ER 14:38 → ICU 16:01 → MEDSURG 10-06 20:32
PROVIDERS: Internal Medicine Nephrology; Admitting Provider Internal Medicine; Emergency Provider Emergency Medicine; PCP Family Medicine; Visit Provider Internal Medicine
DX: E87.1 Hypo-osmolality and hyponatremia (principal); G93.41 Metabolic encephalopathy; J18.9 Pneumonia, unspecified organism; I48.0 Paroxysmal atrial fibrillation; I10 Essential (primary) hypertension; E78.00 Pure hypercholesterolemia, unspecified; E11.9 Type 2 diabetes mellitus without complications; E03.9 Hypothyroidism, unspecified; F31.9 Bipolar disorder, unspecified; F41.9 Anxiety disorder, unspecified; E86.0 Dehydration; N39.41 Urge incontinence; D64.9 Anemia, unspecified; M75.102 Unspecified rotator cuff tear or rupture of left shoulder, not specified as traumatic; I95.9 Hypotension, unspecified; E83.42 Hypomagnesemia; E87.20 Acidosis, unspecified; Z98.84 Bariatric surgery status; Z74.01 Bed confinement status
CPT/HCPCS: 36415; 51702; 70450; 71045; 80048; 80053; 80306; 80307; 81003; 81015; 82436; 82533; 82570; 82607; 83605; 83735; 84133; 84295; 84300; 84443; 84484; 84550; 85025; 85610; 86140; 87040; 87077; 87150; 87186; 87205; 93005; 96365; 96367; 96375; 97116; 97161; 97530; 99285; J0283; J0696; J2543; J3370; J7030; J7040; J7050; Q0144

== ENCOUNTER → 2023-10-16 09:19 | Outpatient (BNVA) | payer MEDICARE, SELFPAY | PROVIDERS: PCP Family Medicine; Visit Provider Physician Assistant | DX: M67.911 Unspecified disorder of synovium and tendon, right shoulder (principal); M67.912 Unspecified disorder of synovium and tendon, left shoulder; M75.41 Impingement syndrome of right shoulder | CPT/HCPCS: 20610; 73030; 99213; J3301 ==

== ENCOUNTER 2023-10-19 07:43 | Outpatient (CLI) | payer MEDICARE, SELFPAY ==
--- NOTE | 2023-10-19 07:51 | MR_ITS ---
WS: [id number] MRI LEFT SHOULDER ARTHROGRAM TECHNIQUE: Sagittal T2, coronal T1, T2 and proton density imaging. Axial gradient PDE imaging. Post a rthrogram imaging CLINICAL INFORMATION: S43.015A - Anterior dislocation of left humerus, initial ... COMPARISON: Recent examination 08/20/2023 FINDINGS: Again seen is the near complete loss of the subacromial space. Advanced degenerative arthritis at the AC joint with synovial thickening. Similar-appearing high-grade tear of the supraspinatus with retra ction to the level of the glenohumeral joint. High-grade tear of the infraspinatus with retraction. C hronic atrophy of the supra and infraspinatus muscle bellies. Advanced joint space narrowing glenohumeral articulation. Teres minor appears intact. High-grade comp lete tear of the subscapularis tendon. Biceps tendon is absent from the bicipital groove. Intra-artic ular biceps tendon not well visualized. Chronic fraying and fissuring of the glenoid labrum and gleno id articular cartilage. Images are limited due to motion and respiratory artifact. Tears of the anter ior superior and anterior inferior glenoid labrum. Subchondral cystic change involving the humeral he ad and greater tuberosity. No avascular necrosis. MR/MR shoulder LT wo/w con [id number] IMPRESSION: Some images are limited due to respiratory motion artifact 1. Stable previously described hide grade complete tears of the rotator cuff d escribed above to include the supraspinatus infraspinatus and subscapularis ten dons. Teres minor appears intact. 2. Near complete loss of the subacromial space. 3. Advanced degenerative narrowing of the glenohumeral articulation with chron ic appearing tears and degenerative fraying of the glenoid labrum and fissuring of the underlying articular cartilage. 4. Biceps tendon is absent from the bicipital groove. Intra-articular biceps t endon not well visualized. 5. Chronic appearing Hill-Sachs deformity. No acute edema.
--- NOTE | 2023-10-19 08:00 | IR_ITS ---
WS: [id number] SHOULDER ARTHROGRAM LEFT Fluoroscopic guided left shoulder arthrogram CLINICAL INFORMATION: left shoulder pain COMPARISON: None. PROCEDURE: The procedure including risks, benefits and complications were discussed with the patient, who agreed to proceed. Using sterile technique, the patient was prepped and draped in the usual ster ile fashion. After 1% lidocaine injection using fluoroscopic guidance, a 22-gauge spinal needle was a dvanced into the glenohumeral joint. Approximately 13 ml of a solution containing 10 ml normal saline , 5 ml Omnipaque 240, 5 ml 1% lidocaine, and 0.1 ml gadolinium was administered. No immediate complic ations. FLUOROSCOPY TIME: 2min [id number] IR/IR arthrogram shoulderLT [id number] IMPRESSION: Uncomplicated fluoroscopic-guided left shoulder arthrogram. MRI to follow.
[2023-10-19] MEDS: gadobenate dimeglumine 20 mL vial IV (09:43)
== END 2023-10-19 07:44 | disposition home or self-care (01) ==
LOC: RAD 07:43
PROVIDERS: PCP Family Medicine; Visit Provider Physician Assistant
DX: M75.122 Complete rotator cuff tear or rupture of left shoulder, not specified as traumatic (principal); S43.015A Anterior dislocation of left humerus, initial encounter; M75.42 Impingement syndrome of left shoulder; M19.012 Primary osteoarthritis, left shoulder; M85.412 Solitary bone cyst, left shoulder; E87.1 Hypo-osmolality and hyponatremia; X58.XXXA Exposure to other specified factors, initial encounter
CPT/HCPCS: 23350; 73223; 77002; 80048; 85610; A9577

== ENCOUNTER 2023-10-23 00:29 | Observation (INO) | payer MEDICARE, SELFPAY ==
[2023-10-23] VITALS (14 sets, daily range): BP systolic 103–178; BP diastolic 53–94; PULSE 73–122; RESP 14–24; TEMP 36.6–36.7; O2SAT 93–100; BMI 29.5; BMI 29.2
--- NOTE | 2023-10-23 00:35 | ECG_ITS ---
[facility] Test Date: 2023-10-23 Pat Name: Trish Rocha Department: Room: Gender: Female Test Tube Maker: : [id number] Requested By: Wyatt Ragsdale Order Number: [id number] Micah MD: Sam Robertson M.D. Measurements Intervals Prince Rate: 123 P: 87 WA: 143 QRS: 75 QRSD: 76 T: 65 QT: 312 QTc: 447 Interpretive Statements SINUS TACHYCARDIA Compared to ECG 10/05/2023 20:44:34 Atrial fibrillation no longer present Electronically Signed On 10-23-2023 11:28:51 CDT by Sam Robertson M.D. [email or web address]
--- NOTE | 2023-10-23 00:35 | XRR_ITS ---
PROCEDURE INFORMATION: Exam: XR Chest Exam date and time: 10/23/2023 12:49 AM Age: 67 years old Clinical indication: Pain; Chest pressure; Additional info: Chest pain TECHNIQUE: Imaging protocol: Radiologic exam of the chest. Views: 1 view. COMPARISON: CR XR chest 1V portable [id number] 10/05/2023 2:43 PM FINDINGS: Lungs: Unremarkable. No consolidation. Pleural spaces: Unremarkable. No pleural effusion. No pneumothorax. Heart/Mediastinum: Borderline cardiomegaly. Mitral valve calcifications. Vasculature: Aortic arch calcifications. Bones/joints: Mild degenerative disease of the right acromioclavicular joint. Cystic changes of the right greater tuberosity, consistent with rotator cuff disease. XR/XR chest 1V portable [id number] IMPRESSION: No acute cardiopulmonary process.
--- NOTE | 2023-10-23 00:39 | ED_ITS ---
HPI - Chest Pain 2 General: Chief Complaint: Chest Pain Stated Complaint: CP SOB afib Time Seen by Provider: 10/23/23 00:32 History of Present Illness: Patient presents to the ER with complaints of chest pain shortness of breath and A-fib. Patient stated this started about 30 minutes prior to arrival. Patient does have a history of A-fib with RVR and is on Coumadin currently. Patient says she was just seen in the ER approximately 3 weeks ago for the same thing. Patient says she has been taking all of her medicine as directed. Patient's pulse at home is approximately 140 beats a minute. Related Data Home Medications Medication Instructions Recorded Confirmed diphenhydramine HCl 25 mg capsule 25 mg PO TID PRN ALLERGIES 06/21/23 10/16/23 (Benadryl) ferrous sulfate 325 mg (65 mg 325 mg PO DAILY 06/21/23 10/16/23 iron) tablet Previous Rx's Medication Instructions Recorded fluticasone propionate 50 2 spray intranasal DAILY #16 grams 03/05/23 mcg/actuation nasal spray,suspension famotidine 20 mg tablet (Pepcid) 20 mg PO BID #180 tabs 06/10/23 hydralazine 50 mg tablet 75 mg (1.5 x 50 mg) PO TID #90 tabs 08/04/23 levothyroxine 25 mcg tablet 50 mcg (2 x 25 mcg) PO DAILY #90 08/04/23 tabs lisinopril 40 mg tablet 40 mg PO DAILY #30 tabs 08/31/23 magnesium oxide 400 mg (241.3 mg 400 mg PO DAILY #30 tabs 08/31/23 magnesium) tablet loratadine 10 mg tablet (Claritin) 10 mg PO DAILY #30 tabs 09/09/23 left arm sling #1 ea 09/17/23 escitalopram oxalate 10 mg tablet 10 mg PO DAILY #60 tabs 10/07/23 metoprolol tartrate 25 mg tablet 75 mg (3 x 25 mg) PO BID #90 tabs 10/07/23 sodium chloride 1,000 mg soluble 1,000 mg PO DAILY #7 tabs 10/07/23 tablet warfarin 4 mg tablet 4 mg PO DAILY #90 tabs 10/07/23 hydrocodone 5 mg-acetaminophen 325 1 tab PO Q6H PRN pain 5 days #20 10/19/23 mg tablet tabs quetiapine 100 mg tablet (Seroquel) 100 mg PO .QHS #30 tabs 10/19/23 Allergies Allergy/AdvReac Type Severity Reaction Status Date / Time Iodinated Contrast Media Allergy ITCHING Verified 10/16/23 09:09 Review of Systems 2 General: Reports: 10 or more systems reviewed and unremarkable except in HPI and below PFSH ED 2 PFSH: Medical History Hyponatremia Atrial fibrillation with RVR Atrial fibrillation with RVR Dehydration Hyponatremia Altered mental status Subacromial impingement of left shoulder Rotator cuff tear, left Anemia Bipolar 2 disorder Anxiety Hypothyroidism Diabetes Hypercholesterolemia Syncope Urgency of urination Hypertension Surgical History Hx of section x 3 Hx of bilateral cataract extraction H/O gastric bypass Family History Grandmother Cancer Hyperlipidemia Hypertension Mother Hypertension CAD (coronary artery disease) unknown age of onset Denies family history of Diabetes Clotting disorder Dementia Chronic kidney disease (CKD) Suicide Anesthesia complication Bleeding disorder Lung disease Stroke Social History Smoking and tobacco/nicotine status: never used tobacco/nicotine Alcohol intake: never Substance/Drug Use: never Marital status: Physical Exam 2 Const: COMMON NORMALS: no acute distress, average body habitus, patient oriented x3, no limitations, healthy appearing, alert and well nourished HENMT: COMMON NORMALS: normocephalic, atraumatic, hearing grossly normal bilaterally, external ears normal, Normal external nose present and moist oral mucous membranes HEAD & SCALP: normocephalic and atraumatic NOSE: Normal external nose present EXTERNAL EAR: Yes external ears normal Neck/C-Spine: COMMON NORMALS: no JVD Chest: COMMONS NORMALS: normal inspection of the chest and normal palpation of entire chest wall Resp: COMMON NORMALS: normal respiratory effort, No retractions, No use of accessory muscles and clear to auscultation bilaterally AUSCULTATION: clear to auscultation bilaterally Cardio: COMMON NORMALS: no JVD, S1 normal heart sound present, S2 normal heart sound present, No gallops present (Cardio), No clicks present (Cardio) and No murmurs present (Cardio); negative for regular rate (Irregularly irregular tachycardic rhythm) and negative for regular rhythm RATE: abnormal rate (Irregularly irregular tachycardic rhythm) RHYTHM: abnormal rhythm HEART SOUNDS: S1 normal heart sound present and S2 normal heart sound present GI: COMMON NORMALS: Normal to inspection, nondistended, normoactive bowel sounds present, Soft to palpation, non-tender, No hepatosplenomegaly present and no masses PALPATION: Yes Soft to palpation and Yes No hepatosplenomegaly present Neuro: COMMON NORMALS: patient oriented x3 SENSORIUM/ORIENTATION: Yes alert Course 2 Vital Signs: Vital signs: Vital Signs Temperature 98.0 F 10/23/23 00:31 Pulse Rate 122 H 10/23/23 00:31 Respiratory Rate 24 H 10/23/23 00:31 Blood Pressure 137/79 10/23/23 00:31 Pulse Oximetry 99 10/23/23 00:31 Oxygen Delivery Me thod Room Air 10/23/23 00:31 MDM - Chest Pain Medical Decision Making Patient presented with A-fib with RVR, chest pain shortness of breath anxiety, patient was given 20 mg Cardizem which slowed her heart rate down to approximately 100 bpm. Patient was also given 1 mg Ativan, 2 mg of morphine 4 mg Zofran and 1 L normal saline. Patient's initial troponin came back at 16 with a 2-hour of 31.6 for delta of 15.6. This was discussed with Dr. Lopez. Will place the patient on MedSurg Ham. Patient's INR come back low at 0.8 subtherapeutic we will start her on Lovenox 1 mg/kg subcu. Medical Records I reviewed the patient's medical records. Lab Data I reviewed the patient's lab results. 10/23/23 00:35 10/23/23 00:35 Radiology Impressions Chest X-Ray 10/23/23 00:35 IMPRESSION: No acute cardiopulmonary process. Laboratory Results WBC 8.77 10^3/uL (3.29-11.43) 10/23/23 00:35 RBC 3.46 10^6/uL (3.85-5.65) L 10/23/23 00:35 Hgb 10.60 g/dL (11.27-16.99) L 10/23/23 00:35 Hct 32.5 % (36-47) L 10/23/23 00:35 MCV 93.9 fl (85-98) 10/23/23 00:35 MCH 30.6 pg (27-33) 10/23/23 00:35 MCHC 32.6 g/dL (30-55) 10/23/23 00:35 RDW 14.9 % (12.1-15.1) 10/23/23 00:35 Plt Count 480 10^3/cmm (157-399) H 10/23/23 00:35 MPV 8.3 fL (7.4-10.4) 10/23/23 00:35 Neut % (Auto) 51.1 % 10/23/23 00:35 Lymph % (Auto) 35.0 % 10/23/23 00:35 [place] % (Auto) 12.9 % 10/23/23 00:35 Eos % (Auto) 0.6 % 10/23/23 00:35 Baso % (Auto) 0.1 % 10/23/23 00:35 Neut # (Auto) 4.48 10^3/uL (1.8-7.7) 10/23/23 00:35 Lymph # (Auto) 3.1 10^3/uL (0.8-4.8) 10/23/23 00:35 [place] # (Auto) 1.1 10^3/uL (0.2-0.9) H 10/23/23 00:35 Eos # (Auto) 0.1 10^3/uL (0.0-0.8) 10/23/23 00:35 Baso # (Auto) 0.0 10^3/uL (0.0-0.1) 10/23/23 00:35 Nucleated RBC % (auto) 0 % 10/23/23 00:35 Nucleated RBCs # 0.0 /100WBC 10/23/23 00:35 PT 12.10 SECONDS (12.1-14.9) 10/23/23 00:35 INR 0.87 (0.8-1.2) 10/23/23 00:35 Sodium 133 mmol/L (136-145) L 10/23/23 00:35 Potassium 4.1 mmol/L (3.5-5.1) 10/23/23 00:35 Chloride 96 mmol/L (98-107) L 10/23/23 00:35 Carbon Dioxide 24 mmol/L (22-29) 10/23/23 00:35 Anion Gap 17.1 (5-19) 10/23/23 00:35 BUN 15 mg/dL (8-23) 10/23/23 00:35 Creatinine 0.6 mg/dL (0.5-0.9) 10/23/23 00:35 GFR Calculation 100.0 mL/min (90-130) 10/23/23 00:35 Glucose 161 mg/dL (65-115) H 10/23/23 00:35 Calculated Osmolality 280 mOsm/kg (285-295) L 10/23/23 00:35 Calcium 8.7 mg/dL (8.5-10.5) 10/23/23 00:35 Magnesium 1.7 mg/dL (1.7-2.3) 10/23/23 00:35 Total Bilirubin 0.2 mg/dL (0.15-1.2) 10/23/23 00:35 AST 16 U/L (0-32) 10/23/23 00:35 ALT 14 U/L (0-33) 10/23/23 00:35 Alkaline Phosphatase 65 U/L (35-105) 10/23/23 00:35 Troponin T Baseline 16 ng/L (0-10) H 10/23/23 00:35 Troponin T 120 Minute 31.60 ng/L (0-10) H 10/23/23 02:30 Delta Troponin T 15.60 ABS# (0-10) H* 10/23/23 02:30 Total Protein 6.3 g/dL (6.6-8.7) L 10/23/23 00:35 Albumin 3.7 g/dL (3.5-5.2) 10/23/23 00:35 Globulin 2.6 g/dL (1.3-4.6) 10/23/23 00:35 TSH 4.89 uIU/mL (0.27-4.20) H 10/23/23 00:35 All radiology interpretation(s) finalized by discharge Discharge Plan Discharge Patient Disposition: Placed in Observation Clinical Impression: Atrial fibrillation with RVR, Elevated troponin Coding Level of Care Code ED Two Way Radio Technician for Chg Ann-Marie
[2023-10-23 00:43] LABS: Basophils % 0.1 %; Eosinophils # 0.1 10^3/uL (0.0-0.8); Eosinophils % 0.6 %; Hematocrit 32.5 % (36-47); Lymphocytes # 3.1 10^3/uL (0.8-4.8); Mean Corpuscular HGB Conc 32.6 g/dL (30-55); Mean Corpuscular Hemoglobin 30.6 pg (27-33); Mean Corpuscular Volume 93.9 fl (85-98); Mean Platelet Volume 8.3 fL (7.4-10.4); Monocytes # 1.1 10^3/uL (0.2-0.9); Monocytes % 12.9 %; Neutrophils # 4.48 10^3/uL (1.8-7.7); Neutrophils % 51.1 %; Nucleated Red Blood Cells % 0 %; Platelet Count 480 10^3/cmm (157-399); Red Blood Count 3.46 10^6/uL (3.85-5.65); Red Cell Distribution Width 14.9 % (12.1-15.1); White Blood Count 8.77 10^3/uL (3.29-11.43)
[2023-10-23] MEDS: sodium chloride 0.9% 1,000 ML 999 ML IV (00:48)
[2023-10-23] MEDS: dilTIAZem 5 mg/mL SDV 5 mL 20 MG IVP (00:48)
[2023-10-23 00:57] LABS: INR 0.87 (0.8-1.2)
[2023-10-23] MEDS: ondansetron 2 mg/ML SDV 2 mL 4 MG IVP (01:03)
[2023-10-23] MEDS: morphine 4 mg/mL SDV 1 mL 2 MG IVP (01:03)
[2023-10-23 01:05] LABS: Troponin(5th) Baseline 16 ng/L (0-10)
[2023-10-23 01:08] LABS: Alanine Aminotransferase 14 U/L (0-33); Albumin Level 3.7 g/dL (3.5-5.2); Alkaline Phosphatase 65 U/L (35-105); Anion Gap 17.1 (5-19); Aspartate Amino Transferase 16 U/L (0-32); Blood Urea Nitrogen 15 mg/dL (8-23); Calcium 8.7 mg/dL (8.5-10.5); Carbon Dioxide 24 mmol/L (22-29); Chloride 96 mmol/L (98-107); Creatinine Clr Calc Pharmacy 62.2273; Globulin 2.6 g/dL (1.3-4.6); Glucose 161 mg/dL (65-115); Magnesium 1.7 mg/dL (1.7-2.3); Osmolality Calculated 280 mOsm/kg (285-295); Potassium 4.1 mmol/L (3.5-5.1); Sodium 133 mmol/L (136-145); Total Bilirubin 0.2 mg/dL (0.15-1.2); Total Protein 6.3 g/dL (6.6-8.7)
[2023-10-23 01:14] LABS: Thyroid Stimulating Hormone 4.89 uIU/mL (0.27-4.20)
[2023-10-23] MEDS: LORazepam 2 mg/mL INJ 1 mL 1 MG IVP (01:41)
--- NOTE | 2023-10-23 02:35 | ECG_ITS ---
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 Measurements Intervals [place] Rate: 73 P: 76 OR: 156 QRS: 70 QRSD: 79 T: 62 QT: 429 QTc: 476 Interpretive Statements SINUS RHYTHM WITH SINUS ARRHYTHMIA Compared to ECG 10/05/2023 20:44:34 Atrial fibrillation no longer present Electronically Signed On 10-23-2023 13:03:18 CDT by Sam Robertson M.D. [email or web address] [facility] [email or web address] medical centerSiteskin Web [email or web address]/store/[id number]
[2023-10-23] MEDS: enoxaparin 80 mg/0.8 mL Syringe 70 MG SUBCUT (03:42)
--- NOTE | 2023-10-23 04:15 | USCV_ITS ---
Trish Rocha Age: 67 Gender: F : 1955 Exam Date: 10/23/2023 09:00 Ordering Phys: Bobby Lopez MD Technologist: Rodriguez Brian [place] [facility] [place]: nstemi BP: 151 / 69 HR: 69 Rhythm: Sinus Technical Quality: Adequate MEASUREMENTS (Male / Female) Normal Values 2D ECHO LV Diastolic Diameter PLAX 4.3 cm 4.2 - 5.9 / 3.9 - 5.3 cm IVS Diastolic Thickness 1.1 cm 0.6 - 1.0 / 0.6 - 0.9 cm IVS Systolic Thickness 1.3 cm LVPW Diastolic Thickness 1.6 cm 0.6 - 1.0 / 0.6 - 0.9 cm LVPW Systolic Thickness 2.0 cm LVOT Diameter 2.0 cm LV Ejection Fraction 2D Teich 66.2 % LV Ejection Fraction MOD 4C 71.0 % LV Ejection Fraction MOD 2C 80.6 % LV Ejection Fraction 2C AL 80.5 % LA Diameter 3.6 cm RA Systolic Volume 4C AL 41.8 ml RA Systolic Volume 4C MOD 43.6 ml LA Sys Volume AL 80.6 cm cubed LA Sys Volume Index AL 45.6 cm cubed/m squared Aorta at Sinotubular Diameter 2.0 cm IVC Diameter 1.8 cm M-MODE LA Ao Ratio MM 1.5 AV Cusp Separation MM 1.4 cm DOPPLER AV Peak Velocity 166.3 cm/s LVOT Peak Velocity 94.0 cm/s AV Area Cont Eq vti 2.1 cm squared AV Area Cont Eq pk 1.8 cm squared MV Peak Velocity 218.0 cm/s MV Area PHT 4.8 cm squared Mitral E to A Ratio 1.5 TV Peak Velocity 398.0 cm/s TR Peak Velocity 459.0 cm/s TR Peak Gradient 84.3 mmHg TR Mean Velocity 338.0 cm/s TR Mean Gradient 50.6 mmHg TR Velocity Time Integral 143.1 cm PV Peak Velocity 125.0 cm/s RV Ejection Time 0.3 s FINDINGS Left Ventricle Normal left ventricular size and systolic function, EF 66% Mild Carnithan developed into hypertrophy. No gross wall motion abnormalities.Grade III/IV diastolic dysfunction (restrictive filling pattern), severely elevated filling pressures. Right Ventricle The right ventricle is normal in size and function. Right Atrium The right atrium is normal in size. Left Atrium Moderately increased left atrial size. Mitral Valve Moderate mitral annular calcification. Aortic Valve Thickened aortic valve. Tricuspid Valve Mild tricuspid valve regurgitation. Severe pulmonary hypertension with an estimated pulmonary artery peak systolic pressure of 87 mmHg Pulmonic Valve Structurally normal pulmonic valve without significant stenosis. There is no pulmonic regurgitation. Pericardium Normal pericardium without effusion. Aorta Normal aortic annulus size. IVC Normal IVC dimension with <50% respiratory change of the inferior vena cava. CONCLUSIONS Normal left ventricular size and systolic function, EF 66% Mild Carnithan developed into hypertrophy. No gross wall motion abnormalities.Grade III/IV diastolic dysfunction (restrictive filling pattern), severely elevated filling pressures. Moderately increased left atrial size. Moderate mitral annular calcification. Thickened aortic valve. Mild tricuspid valve regurgitation. Severe pulmonary hypertension with a mean pulmonary artery pressure of 59 mmHg There is no pericardial effusion. There are no intracardiac masses. No similar previous studies are available for comparison Dr Jean Claude Crow MD [facility] (Electronically Signed) Final Date: 23 October 2023 12:35 S
--- NOTE | 2023-10-23 04:57 | PM.HP ---
Providers/Chief Complaint Primary Care Provider: Obey Rose MD Chief Complaint: CP SOB afib History of Present Illness Pleasant 67-year-old lady with history of atrial fibrillation, on anticoagulation with warfarin, could not afford Eliquis, hypothyroidism, HTN, HLD, diabetes, anemia, anxiety, chronic back pain, other medical problems, presented due to chest pain, palpitations, tachycardia, found to be in A-fib with RVR, heart rate in 120s-140s at rest. Received Cardizem push for A-fib with RVR. Converted to sinus rhythm. Subsequently still with shortness of breath/dyspnea, tachypnea, mild cough. Chest x-ray without acute abnormality. Troponin noted with acute rise from 16 up to 31.6 with positive delta of 15.6. TSH 4.89. Review of Systems Const: Denies: fever(s), chills, body aches or malaise ENMT: Denies: throat pain Card: Reports: chest pain (With tachycardia, now resolved), palpitations and irregular heart rhythm; Denies: edema, pre-syncope or dyspnea on exertion Resp: Reports: dyspnea and non-productive cough; Denies: productive cough, change in phlegm color or hemoptysis GI: Denies: abdominal pain, nausea, vomiting, diarrhea, constipation, hematochezia or melena : Denies: flank pain, urinary frequency or hematuria Musc: Denies: back pain, joint swelling or joint redness Skin/Breast: Denies: rash or new lesions Neuro: Denies: headache(s) Medications/Allergies Home Medications Medication Instructions Recorded Confirmed Last Taken Type fluticasone propionate 50 2 spray intranasal DAILY #16 grams 03/05/23 10/16/23 10/04/23 Rx mcg/actuation nasal spray,suspension famotidine 20 mg tablet (Pepcid) 20 mg PO BID #180 tabs 06/10/23 10/16/23 10/04/23 Rx diphenhydramine HCl 25 mg capsule 25 mg PO TID PRN ALLERGIES 06/21/23 10/16/23 06/20/23 History (Benadryl) ferrous sulfate 325 mg (65 mg 325 mg PO DAILY 06/21/23 10/16/23 10/04/23 History iron) tablet hydralazine 50 mg tablet 75 mg (1.5 x 50 mg) PO TID #90 tabs 08/04/23 10/16/23 10/04/23 Rx levothyroxine 25 mcg tablet 50 mcg (2 x 25 mcg) PO DAILY #90 08/04/23 10/16/23 10/04/23 Rx tabs lisinopril 40 mg tablet 40 mg PO DAILY #30 tabs 08/31/23 10/16/23 10/04/23 Rx magnesium oxide 400 mg (241.3 mg 400 mg PO DAILY #30 tabs 08/31/23 10/16/23 10/04/23 Rx magnesium) tablet loratadine 10 mg tablet (Claritin) 10 mg PO DAILY #30 tabs 09/09/23 10/16/23 10/04/23 Rx left arm sling #1 ea 09/17/23 10/16/23 Unknown Rx escitalopram oxalate 10 mg tablet 10 mg PO DAILY #60 tabs 10/07/23 10/16/23 Unknown Rx metoprolol tartrate 25 mg tablet 75 mg (3 x 25 mg) PO BID #90 tabs 10/07/23 10/16/23 Unknown Rx sodium chloride 1,000 mg soluble 1,000 mg PO DAILY #7 tabs 10/07/23 10/16/23 Unknown Rx tablet warfarin 4 mg tablet 4 mg PO DAILY #90 tabs 10/07/23 10/16/23 Unknown Rx hydrocodone 5 mg-acetaminophen 325 1 tab PO Q6H PRN pain 5 days #20 10/19/23 10/19/23 Unknown Rx mg tablet tabs quetiapine 100 mg tablet (Seroquel) 100 mg PO .QHS #30 tabs 10/19/23 10/19/23 Unknown Rx Allergies Allergy/AdvReac Type Severity Reaction Status Date / Time No Known Drug Allergies Allergy Unknown Verified 10/23/23 05:25 PFSH Acute PFSH: Medical History (Updated 10/23/23 @ 05:20 by Bobby Lopez MD) Hypothyroidism Hyponatremia Atrial fibrillation with RVR Atrial fibrillation with RVR Dehydration Hyponatremia Altered mental status Subacromial impingement of left shoulder Rotator cuff tear, left Anemia Bipolar 2 disorder Anxiety Diabetes Hypercholesterolemia Syncope Urgency of urination Hypertension Surgical History Hx of section x 3 Hx of bilateral cataract extraction H/O gastric bypass Family History Grandmother Cancer Hyperlipidemia Hypertension Mother Hypertension CAD (coronary artery disease) unknown age of onset Denies family history of Diabetes Clotting disorder Dementia Chronic kidney disease (CKD) Suicide Anesthesia complication Bleeding disorder Lung disease Stroke Social History Smoking and tobacco/nicotine status: never used tobacco/nicotine Alcohol intake: never Substance/Drug Use: never Marital status: Vitals/I&O/Wt Last Vital Signs Temp 98.0 F 10/23/23 00:31 Pulse 33 L 10/23/23 04:38 Resp 24 H 10/23/23 04:00 BP 103/58 10/23/23 04:38 Pulse Ox 100 10/23/23 04:38 O2 Del Method Room Air 10/23/23 04:00 10/22/23 10/22/23 10/23/23 14:59 22:59 06:59 Intake Total 1000 / 1000 Balance 1000 / 1000 Weight last 48 hrs Weight 70.76 kg Physical Exam Const: COMMON NORMALS: patient oriented x3 and alert GENERAL APPEARANCE: cooperative ORIENTATION/CONSCIOUSNESS: Yes awake HENMT: COMMON NORMALS: oropharynx normal Neck/C-Spine: COMMON NORMALS: no JVD Resp: COMMON NORMALS: normal respiratory effort and clear to auscultation bilaterally AUSCULTATION: clear to auscultation bilaterally OTHER: Mild dyspnea with longer sentences. Cardio: COMMON NORMALS: no JVD, regular rhythm, S1 normal heart sound present, S2 normal heart sound present and No murmurs present (Cardio) RHYTHM: regular rhythm HEART SOUNDS: S1 normal heart sound present and S2 normal heart sound present GI: COMMON NORMALS: Normal to inspection, nondistended, normoactive bowel sounds present, Soft to palpation and non-tender PALPATION: Yes Soft to palpation Extremity: COMMON NORMALS: no joint enlargement and no pedal edema Neuro: COMMON NORMALS: patient oriented x3 and moves all extremities SENSORIUM/ORIENTATION: Yes alert Skin: COMMON NORMALS: no rashes or lesions noted GENERAL SKIN EXAM: no rashes or lesions noted Data 10/23/23 00:35 10/23/23 00:35 A&P Assessment and plan (1) Elevated troponin: Chest pain with A-fib with RVR, but even after resolution of tachycardia with dyspnea/shortness of breath, rising troponin, positive delta. Reviewed EKG, on my interpretation with flattening of T waves in aVL, V2, appears to have chronic J-point elevation in a few leads, but otherwise without suggestion of STEMI on my interpretation, pending official read. Possible NSTEMI. D-dimer requested, abnormal. Warfarin subtherapeutic. Possible PE. Anticoagulation with Lovenox, aspirin -monitor for risk of bleeding. Reassess blood counts. Metoprolol. Reviewed vitals, CBC, INR, CMP, TSH, chest x-ray, ER note, discussed with ER provider. Requested additional assessment with CT angiogram chest, initially some report of possible allergy to contrast, but she clarified she does not have an allergy, had some mild itching years ago after contrast dye without anything more severe. Initially premedication was ordered, but canceled, proceeding to CTA. Additionally assessed with TTE. Monitor on telemetry with risk of arrhythmia recurrence. With collateral issues requiring additional assessment, too late for her to be able to undergo stress testing, requesting also cardiology consultation. Discussed with government operations consultant. (2) Atrial fibrillation with RVR: With history of atrial fibrillation, trigger not entirely clear, but does have dyspnea, abnormal D-dimer. Assess for PE as above. Assess respiratory viral panel. Additionally possible NSTEMI as above. Complete troponin EKG series, assess echocardiogram. Responded to Cardizem push. Continue metoprolol. Monitor on telemetry. Reviewed potassium is okay. Magnesium soft 1.7. Give 2 g. Additionally noted abnormal TSH, 4.89, on levothyroxine, increased dose to 62.5 microgram. (3) Dyspnea: Having dyspnea, becoming dyspneic with longer sentences. Tachypnea. Abnormal D-dimer. Additional assessment for PE with CTA. Obtain respiratory viral panel. Assess for cardiac ischemia. Obtain TTE. So far not requiring oxygen, monitor oxygenation. Bedrest for now. Anticoagulation for possible NSTEMI as above. I otherwise do not hear adventitious sounds on exam. Chest x-ray unremarkable. (4) Elevated d-dimer: As above (5) Hypothyroidism: Adjust levothyroxine dose. Will need follow-up with thyroid studies with PCP. Plan Hypomagnesemia: Magnesium 1.7, give magnesium. HTN, HLD, Diabetes, sliding scale insulin. Consistent carbohydrate diet. Monitor POC glucose. Hypoglycemia protocol. Anemia, Anxiety, Chronic back pain Requesting home medications to be confirmed, please review once available. Attestations Medical Necessity Statement*: Place in observation for additional assessment management of A-fib with RVR, possible NSTEMI, assessment for possible PE, new dyspnea, and a lady with hypothyroidism, and additional comorbidities as above. Diagnoses Elevated troponin R79.89 Atrial fibrillation with RVR I48.91 Dyspnea R06.00 Elevated d-dimer R79.89 Hypothyroidism E03.9
[2023-10-23 05:12] LABS: D Dimer 4.64 ug/mLFEU (0-0.59)
--- NOTE | 2023-10-23 05:13 | CTR_ITS ---
PROCEDURE INFORMATION: Exam: CTA Chest With Contrast Exam date and time: 10/23/2023 5:52 AM Age: 67 years old Clinical indication: Shortness of breath; Additional info: Assess for pe TECHNIQUE: Imaging protocol: Computed tomographic angiography of the chest with contrast. Exam focused on the arteries. 3D rendering (Not supervised by radiologist): MIP and/or 3D reconstructed images were created by the technologist. Radiation optimization: All CT scans at this facility use at least one of these dose optimization techniques: automated exposure control; mA and/or kV adjustment per patient size (includes targeted exams where dose is matched to clinical indication); or iterative reconstruction. Contrast material: OMNI 350; Contrast volume: 100 ml; Contrast route: INTRAVENOUS (IV); COMPARISON: CT angio chest w abd pel w con 02/18/2017 10:44 PM RADIATION DOSE METRICS: Total DLP (mGy-cm): 356.21 FINDINGS: Pulmonary arteries: Normal. No pulmonary emboli. Aorta: Unremarkable. No aortic aneurysm. No aortic dissection. Lungs: Unremarkable. No consolidation. No masses. Pleural spaces: Unremarkable. No pneumothorax. No pleural effusion. Heart: Unremarkable. No cardiomegaly. No pericardial effusion. Coronary arteries: Coronary artery calcifications. Lymph nodes: Unremarkable. No enlarged lymph nodes. Diaphragm: Small hiatal hernia. Spleen: Calcified granuloma within the spleen. Bones/joints: Unremarkable. No acute fracture. Soft tissues: Unremarkable. CT/CT angio chest PE protcl [id number] IMPRESSION: No evidence of embolus or other acute intrathoracic pathology.
[2023-10-23 06:14] LABS: Adenovirus Not Detected (NOT DETECT); Chlamydia Pneumoniae Not Detected (NOT DETECT); Coronavirus 229E,HKU1,NL63,OC4 Not Detected (NOT DETECT); Human Metapneumovirus Not Detected (NOT DETECT); Human Rhinovirus/Enterovirus Not Detected (NOT DETECT); Influenza A Not Detected (NOT DETECT); Influenza A H1 Not Detected (NOT DETECT); Influenza A H1-2009 Not Detected (NOT DETECT); Influenza A H3 Not Detected (NOT DETECT); Influenza B Not Detected (NOT DETECT); Mycoplasma Pneumoniae Not Detected (NOT DETECT); Parainfluenza Virus Type 1 Not Detected (NOT DETECT); Parainfluenza Virus Type 2 Not Detected (NOT DETECT); Parainfluenza Virus Type 3 Not Detected (NOT DETECT); Parainfluenza Virus Type 4 Not Detected (NOT DETECT); Respiratory Syncytial Virus A Not Detected (NOT DETECT); Respiratory Syncytial Virus B Not Detected (NOT DETECT); SARS-COV-2 Not Detected (NOT DETECT)
[2023-10-23] MEDS: magnesium sulfate premix 2 GM/50 ML PIGGYBACK IV (06:27)
--- NOTE | 2023-10-23 06:35 | ECG_ITS ---
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 Measurements Intervals [place] Rate: 86 P: 74 MA: 149 QRS: 66 QRSD: 79 T: 62 QT: 391 QTc: 470 Interpretive Statements SINUS RHYTHM Compared to ECG 10/23/2023 02:40:36 Sinus arrhythmia no longer present Electronically Signed On 10-23-2023 11:30:21 CDT by Sam Robertson M.D. [email or web address] Delian [employer]ouph. c. watkins memorial hospitalReffpediaashtabula general hospitalBAE Systems/store/OM/[id number]
[2023-10-23 07:11] LABS: Troponin 5 6HR 26.01 ng/L (0-10); Troponin 5 6HR Delta 10.01 ng/L (0-12)
[2023-10-23] MEDS: metoprolol tartrate 25 mg Tablet 75 MG PO (08:47)
[2023-10-23 08:48] LABS: Glucose Point of Care 114 mg/dL (70-110)
--- NOTE | 2023-10-23 08:48 | P.CONIM_ITS ---
Providers/Reason For Consult 2 Consulting Physician/Specialty*: Sam Robertson MD/ Cardiology Reason for Consult*: Troponin elevation Requesting Physician: Dr Lopez Attending Physician: Sulaiman Melton MD Primary Care Provider: Obey Rose MD History of Present Illness History of Present Illness Trish Rocha is a 67 year old female with past medical history of hypertension, atrial fibrillation who had presented with A-fib with RVR. After receiving Cardizem, she converted back to sinus rhythm. Her troponin increased from baseline of 16 to 31 at 2 hours and has trended down since to 26. No active chest pain. Echo shows normal LV systolic function. CTA did not show PE. Review of Systems 2 General: Reports: 10 or more systems reviewed and unremarkable except in HPI and below Medications/Allergies Home Medications Medication Instructions Recorded Confirmed Last Taken Type famotidine 20 mg tablet (Pepcid) 20 mg PO BID #180 tabs 06/10/23 10/28/23 10/22/23 Rx ferrous sulfate 325 mg (65 mg 325 mg PO DAILY 06/21/23 10/28/23 10/22/23 History iron) tablet hydralazine 50 mg tablet 75 mg (1.5 x 50 mg) PO TID #90 tabs 08/04/23 10/28/23 10/22/23 Rx levothyroxine 25 mcg tablet 50 mcg (2 x 25 mcg) PO DAILY #90 08/04/23 10/28/23 10/22/23 Rx tabs lisinopril 40 mg tablet 40 mg PO DAILY #30 tabs 08/31/23 10/28/23 10/22/23 Rx magnesium oxide 400 mg (241.3 mg 400 mg PO DAILY #30 tabs 08/31/23 10/28/23 10/22/23 Rx magnesium) tablet loratadine 10 mg tablet (Claritin) 10 mg PO DAILY #30 tabs 09/09/23 10/28/23 10/22/23 Rx left arm sling #1 ea 09/17/23 10/28/23 Unknown Rx escitalopram oxalate 10 mg tablet 10 mg PO DAILY #60 tabs 10/07/23 10/28/23 10/22/23 Rx warfarin 4 mg tablet 4 mg PO DAILY #90 tabs 10/07/23 10/28/23 10/22/23 Rx atorvastatin 80 mg tablet 80 mg PO DAILY 10/23/23 10/28/23 10/22/23 History fluticasone propionate 50 2 spray intranasal DAILY #16 grams 10/23/23 10/28/23 Unknown Rx mcg/actuation nasal spray,suspension hydrocodone 5 mg-acetaminophen 325 1 tab PO Q6H PRN pain 5 days #20 10/23/23 10/28/23 Unknown Rx mg tablet tabs metoprolol tartrate 100 mg tablet 100 mg PO BID #60 tabs 10/23/23 10/28/23 Unknown Rx nifedipine 60 mg tablet,extended 60 mg PO DAILY 10/23/23 10/28/23 10/22/23 History release 24 hr quetiapine 100 mg tablet (Seroquel) 100 mg PO BEDTIME 10/23/23 10/28/23 10/21/23 History tramadol 100 mg tablet 100 mg PO Q6H PRN Pain 10/23/23 10/28/23 Unknown History trazodone 100 mg tablet 100 mg PO BEDTIME 10/23/23 10/28/23 10/21/23 History warfarin 5 mg tablet 5 mg PO DAILY 10/23/23 10/28/23 Unknown History Allergies Allergy/AdvReac Type Severity Reaction Status Date / Time No Known Drug Allergies Allergy Unknown Verified 10/27/23 10:47 Current Medications Generic Name Dose Route Start Last Admin Trade Name Freq PRN Reason Stop Dose Admin Insulin Human Lispro 0 unit 10/23/23 08:00 10/23/23 08:45 Insulin Lispro 100 Unit/1 Ml SUBCUT Not Given WM&BEDTIME KARLA Protocol Metoprolol Tartrate 75 mg 10/23/23 09:00 10/23/23 08:47 Metoprolol Tartrate 25 Mg Tablet PO 75 mg BID KARLA Administration PFSH Acute 2 PFSH: Medical History Elevated d-dimer Elevated troponin Dyspnea Hypothyroidism Hyponatremia Atrial fibrillation with RVR Atrial fibrillation with RVR Dehydration Hyponatremia Altered mental status Subacromial impingement of left shoulder Rotator cuff tear, left Anemia Bipolar 2 disorder Anxiety Diabetes Hypercholesterolemia Syncope Urgency of urination Hypertension Surgical History Hx of section x 3 Hx of bilateral cataract extraction H/O gastric bypass Family History Grandmother Cancer Hyperlipidemia Hypertension Mother Hypertension CAD (coronary artery disease) unknown age of onset Denies family history of Diabetes Clotting disorder Dementia Chronic kidney disease (CKD) Suicide Anesthesia complication Bleeding disorder Lung disease Stroke Social History Smoking and tobacco/nicotine status: never used tobacco/nicotine Alcohol intake: never Substance/Drug Use: never Marital status: Vitals/I&O/Wt Last Vital Signs Temp 97.8 F 10/23/23 05:04 Pulse 91 10/23/23 06:00 Resp 20 H 10/23/23 05:04 BP 160/77 10/23/23 05:04 Pulse Ox 98 10/23/23 05:04 O2 Del Method Room Air 10/23/23 07:49 10/22/23 10/23/23 10/23/23 22:59 06:59 14:59 Intake Total 1000 / 1000 50 / 50 Balance 1000 / 1000 50 / 50 Weight last 48 hrs Weight 155 lb Weight 155 lb Weight 156 lb Physical Exam 2 Narrative: GENERAL: Patient is alert, awake and oriented x3. [] NECK: No jugular vein distension. [] HEENT: No cyanosis. No icterus. No pallor. [] HEART: Regular S1 and S2. No murmur, rub or gallop. [] LUNGS: Clear to auscultate bilaterally. [] CENTRAL NERVOUS SYSTEM: Grossly nonfocal. [] EXTREMITIES: Lower extremities with 1+ edema bilaterally. Data 10/23/23 00:35 10/23/23 00:35 A&P Assessment and plan (1) Elevated troponin: (2) Atrial fibrillation with RVR: (3) Dyspnea: (4) Elevated d-dimer: (5) Hypothyroidism: Plan Patient has converted back to sinus rhythm and heart rate is controlled now. Continue anticoagulation with Coumadin. Continue current dose of metoprolol. Troponin elevation is mild and secondary to demand ischemia from A-fib with RVR episode. Medical management at this time. Echo shows normal LV systolic function. Thank you for involving us with care of this patient. Close cardiology follow up. Please call with questions. Consult Attestations 2 Medical Necessity Statement: Care expected to cross 2 midnights. Coding Level of Care Code Acute Code for g Fwd Diagnoses Elevated troponin R79.89 Atrial fibrillation with RVR I48.91 Dyspnea R06.00 Elevated d-dimer R79.89 Hypothyroidism E03.9
--- NOTE | 2023-10-23 09:52 | PM.DCS ---
Discharge Providers Date of Admission: 10/23/23 03:52 Date of Discharge: October 23, 2023 Attending Provider at Admission: Bobby Lopez Attending Provider at Discharge: Sulaiman Melton MD Primary Care Provider: Obey Rose MD Diagnoses at Discharge Discharge Diagnosis (1) Elevated troponin: Status: Acute (2) Atrial fibrillation with RVR: Status: Acute (3) Dyspnea: Status: Acute (4) Elevated d-dimer: Status: Acute (5) Hypothyroidism: Status: Acute Reason for Visit Reason for Visit: CP SOB afib Hospital Course Hospital Course 67-year-old female who was admitted for management evaluation of palpitations, chest pain. She was diagnosed with A-fib RVR, she was given Cardizem IV push which converted her A-fib into sinus rhythm. Patient has chronic history of A-fib takes Coumadin along AV carol ann blocking agents. At the time of evaluation patient is hemodynamically stable, in sinus rhythm, no active chest pain or palpitation. EKG not showing any ischemic or infarctive changes. I have counseled patient to start using metoprolol 100 mg twice a day instead of 75 mg, keep INR between 2 and 3. Before her shoulder surgery she probably need to stop taking Coumadin to keep her INR below 1.7 before surgery. TSH is 4.8, at this point I would not change the dose of levothyroxine continue 50 mcg. Patient is full code, being discharged with stable hemodynamics. 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 Physical Exam Narrative: Awake and alert Sinus rhythm Pleasant cough Hemodynamic stable Currently on room air GCS 15 Discharge Data Studies Completed and Pending Completed Studies During Hospitalization Category Date Time Status CTA PE [CT angio chest PE protcl [id number]] Stat Cat Scan 10/23/23 05:13 Completed XR chest 1V portable [id number] Stat Exams 10/23/23 00:35 Completed Pending at discharge Category Date Time Status Complete Blood Count w/Auto AM LABS Lab 10/24/23 04:00 Ordered Complete Blood Count w/Auto AM LABS Lab 10/25/23 04:00 Ordered Complete Blood Count w/Auto AM LABS Lab 10/26/23 04:00 Ordered Comprehensive Metabolic Panel AM LABS Lab 10/24/23 04:00 Ordered Comprehensive Metabolic Panel AM LABS Lab 10/25/23 04:00 Ordered Comprehensive Metabolic Panel AM LABS Lab 10/26/23 04:00 Ordered Magnesium AM LABS Lab 10/24/23 04:00 Ordered CV. echo complete* [id number] Routine Ultrasound 10/23/23 04:15 Taken Radiology Impressions Chest X-Ray 10/23/23 00:35 IMPRESSION: No acute cardiopulmonary process. Chest CTA 10/23/23 05:13 IMPRESSION: No evidence of embolus or other acute intrathoracic pathology. Laboratory Results WBC 8.77 10^3/uL (3.29-11.43) 10/23/23 00:35 RBC 3.46 10^6/uL (3.85-5.65) L 10/23/23 00:35 Hgb 10.60 g/dL (11.27-16.99) L 10/23/23 00:35 Hct 32.5 % (36-47) L 10/23/23 00:35 MCV 93.9 fl (85-98) 10/23/23 00:35 MCH 30.6 pg (27-33) 10/23/23 00:35 MCHC 32.6 g/dL (30-55) 10/23/23 00:35 RDW 14.9 % (12.1-15.1) 10/23/23 00:35 Plt Count 480 10^3/cmm (157-399) H 10/23/23 00:35 MPV 8.3 fL (7.4-10.4) 10/23/23 00:35 Neut % (Auto) 51.1 % 10/23/23 00:35 Lymph % (Auto) 35.0 % 10/23/23 00:35 Wilkin % (Auto) 12.9 % 10/23/23 00:35 Eos % (Auto) 0.6 % 10/23/23 00:35 Baso % (Auto) 0.1 % 10/23/23 00:35 Neut # (Auto) 4.48 10^3/uL (1.8-7.7) 10/23/23 00:35 Lymph # (Auto) 3.1 10^3/uL (0.8-4.8) 10/23/23 00:35 Wilkin # (Auto) 1.1 10^3/uL (0.2-0.9) H 10/23/23 00:35 Eos # (Auto) 0.1 10^3/uL (0.0-0.8) 10/23/23 00:35 Baso # (Auto) 0.0 10^3/uL (0.0-0.1) 10/23/23 00:35 Nucleated RBC % (auto) 0 % 10/23/23 00:35 Nucleated RBCs # 0.0 /100WBC 10/23/23 00:35 PT 12.10 SECONDS (12.1-14.9) 10/23/23 00:35 INR 0.87 (0.8-1.2) 10/23/23 00:35 D-Dimer 4.64 ug/mLFEU (0-0.59) H 10/23/23 00:35 Sodium 133 mmol/L (136-145) L 10/23/23 00:35 Potassium 4.1 mmol/L (3.5-5.1) 10/23/23 00:35 Chloride 96 mmol/L (98-107) L 10/23/23 00:35 Carbon Dioxide 24 mmol/L (22-29) 10/23/23 00:35 Anion Gap 17.1 (5-19) 10/23/23 00:35 BUN 15 mg/dL (8-23) 10/23/23 00:35 Creatinine 0.6 mg/dL (0.5-0.9) 10/23/23 00:35 GFR Calculation 100.0 mL/min (90-130) 10/23/23 00:35 Glucose 161 mg/dL (65-115) H 10/23/23 00:35 POC Glucose 114 mg/dL (70-110) H 10/23/23 08:37 Calculated Osmolality 280 mOsm/kg (285-295) L 10/23/23 00:35 Calcium 8.7 mg/dL (8.5-10.5) 10/23/23 00:35 Magnesium 1.7 mg/dL (1.7-2.3) 10/23/23 00:35 Total Bilirubin 0.2 mg/dL (0.15-1.2) 10/23/23 00:35 AST 16 U/L (0-32) 10/23/23 00:35 ALT 14 U/L (0-33) 10/23/23 00:35 Alkaline Phosphatase 65 U/L (35-105) 10/23/23 00:35 Troponin T Baseline 16 ng/L (0-10) H 10/23/23 00:35 Troponin T 120 Minute 31.60 ng/L (0-10) H 10/23/23 02:30 Delta Troponin T 15.60 ABS# (0-10) H* 10/23/23 02:30 Troponin T Hi Sens 6Hr 26.01 ng/L (0-10) H 10/23/23 06:28 Troponin T Hi Sens 6Hr Delta 10.01 ng/L (0-12) 10/23/23 06:28 Total Protein 6.3 g/dL (6.6-8.7) L 10/23/23 00:35 Albumin 3.7 g/dL (3.5-5.2) 10/23/23 00:35 Globulin 2.6 g/dL (1.3-4.6) 10/23/23 00:35 TSH 4.89 uIU/mL (0.27-4.20) H 10/23/23 00:35 Adenovirus (PCR) Not detected (NOT DETECT) 10/23/23 04:20 C. pneumoniae DNA (PCR) Not detected (NOT DETECT) 10/23/23 04:20 Coronavirus 229E (PCR) Not detected (NOT DETECT) 10/23/23 04:20 Human Metapneumovir PCR Not detected (NOT DETECT) 10/23/23 04:20 Influenza A (H1) PCR Not detected (NOT DETECT) 10/23/23 04:20 Influ A (H1/09) PCR Not detected (NOT DETECT) 10/23/23 04:20 Influenza A (H3) PCR Not detected (NOT DETECT) 10/23/23 04:20 Influenza Type A (PCR) Not detected (NOT DETECT) 10/23/23 04:20 Influenza Type B (PCR) Not detected (NOT DETECT) 10/23/23 04:20 M. pneumoniae (PCR) Not detected (NOT DETECT) 10/23/23 04:20 Parainfluenza 1 (PCR) Not detected (NOT DETECT) 10/23/23 04:20 Parainfluenza 2 (PCR) Not detected (NOT DETECT) 10/23/23 04:20 Parainfluenza 3 (PCR) Not detected (NOT DETECT) 10/23/23 04:20 Parainfluenza 4 (PCR) Not detected (NOT DETECT) 10/23/23 04:20 RSV Type A (PCR) Not detected (NOT DETECT) 10/23/23 04:20 RSV Type B (PCR) Not detected (NOT DETECT) 10/23/23 04:20 Entero/Rhino (PCR) Not detected (NOT DETECT) 10/23/23 04:20 SARS-CoV-2 (PCR) Not detected (NOT DETECT) 10/23/23 04:20 Vitals Last Vital Signs Temp 98.1 F 10/23/23 08:00 Pulse 93 10/23/23 08:00 Resp 17 10/23/23 08:00 BP 151/69 10/23/23 08:00 Pulse Ox 93 10/23/23 08:00 O2 Del Method Room Air 10/23/23 07:49 Discharge Plan Discharge Patient Disposition: Home Condition: Stable Prescriptions: New metoprolol tartrate 100 mg tablet 100 mg PO BID Qty: 60 4RF Continued hydrocodone-acetaminophen 5-325 mg tablet 1 tab PO Q6H PRN (Reason: pain) 5 Days Qty: 20 0RF (DME) left arm sling See Rx Instructions .Route .MEDSUPPLY Qty: 1 0RF Rx Instructions: As directed fluticasone propionate 50 mcg/actuation spray,suspension 2 spray intranasal DAILY Qty: 16 11RF famotidine [Pepcid] 20 mg tablet 20 mg PO BID Qty: 180 11RF hydralazine 50 mg tablet 75 mg PO TID Qty: 90 11RF levothyroxine 25 mcg tablet 50 mcg PO DAILY Qty: 90 11RF lisinopril 40 mg tablet 40 mg PO DAILY Qty: 30 11RF magnesium oxide 400 mg (241.3 mg magnesium) tablet 400 mg PO DAILY Qty: 30 3RF loratadine [Claritin] 10 mg tablet 10 mg PO DAILY Qty: 30 11RF warfarin 4 mg tablet 4 mg PO DAILY Qty: 90 4RF escitalopram oxalate 10 mg tablet 10 mg PO DAILY Qty: 60 2RF quetiapine [Seroquel] 100 mg tablet 100 mg PO BEDTIME atorvastatin 80 mg tablet 80 mg PO DAILY nifedipine 60 mg tablet extended release 24hr 60 mg PO DAILY trazodone 100 mg tablet 100 mg PO BEDTIME warfarin 5 mg tablet 5 mg PO DAILY tramadol 100 mg tablet 100 mg PO Q6H PRN (Reason: Pain) ferrous sulfate 325 mg (65 mg iron) tablet 325 mg PO DAILY Discontinued metoprolol tartrate 25 mg Tablet 75 mg PO BID Qty: 90 10RF Discharge Orders: Discharge Order (Routine); Ordered 10/23/23 Ordered By: Sulaiman Melton Referrals: Obey Rose MD [Primary Care Provider] - Patient Instructions: Opioid Safety, Pain Management Discharge Attestations Time Spent in Discharge Care*: greater than 30 min Quality Metrics Clinical Quality Measures [ No reported AMI, CVA or VTE this stay] Coding Level of Care Code Acute Code for Chg Fwd Diagnoses Elevated troponin R79.89 Atrial fibrillation with RVR I48.91 Dyspnea R06.00 Elevated d-dimer R79.89 Hypothyroidism E03.9
[2023-10-23] MEDS: NIFEdipine ER (24 hr) 30 mg Tablet 60 MG PO (10:36)
[2023-10-23] MEDS: levothyroxine 25 mcg Tablet 62.5 MCG PO (10:37)
[2023-10-23 11:38] LABS: Glucose Point of Care 150 mg/dL (70-110)
[2023-10-23] MEDS: insulin lispro 100 unit/1 mL SUBCUT (11:38)
== END 2023-10-23 13:10 | disposition home or self-care (01) ==
LOC: ER 03:36 → MEDSURG 03:52
PROVIDERS: Admitting Provider Internal Medicine; Emergency Provider Emergency Medicine; PCP Family Medicine; Visit Provider Internal Medicine
DX: I48.91 Unspecified atrial fibrillation (principal); R79.89 Other specified abnormal findings of blood chemistry; R06.00 Dyspnea, unspecified; E03.9 Hypothyroidism, unspecified; Z79.01 Long term (current) use of anticoagulants; E11.9 Type 2 diabetes mellitus without complications; I10 Essential (primary) hypertension; E78.5 Hyperlipidemia, unspecified; F41.9 Anxiety disorder, unspecified
CPT/HCPCS: 36415; 36416; 71045; 71275; 80053; 82962; 83735; 84443; 84484; 85025; 85378; 85610; 87486; 87581; 87633; 93005; 93306; 96372; 96374; 96375; 99285; G0378; J1650; J1815; J2060; J2270; J2405; J3475; J3490; J7030; Q9967

== ENCOUNTER 2023-10-25 23:46 | Emergency (ER) | payer MEDICARE, SELFPAY ==
[2023-10-25 23:53] VITALS: BP 107/66; PULSE 73; RESP 24; TEMP 37.1; O2SAT 98; BMI 27.9
[2023-10-25 23:58] VITALS: BP 121/53; PULSE 61; RESP 20; O2SAT 98
[2023-10-26] VITALS (8 sets, daily range): BP systolic 126–158; BP diastolic 49–106; PULSE 59–65; RESP 14–25; O2SAT 95–99
--- NOTE | 2023-10-26 00:10 | XRR_ITS ---
PROCEDURE INFORMATION: Exam: XR Chest Exam date and time: 10/26/2023 12:14 AM Age: 67 years old Clinical indication: Pain; Shortness of breath; Prior surgery; Surgery date: 6+ months; Surgery type: Gastric bypass; Patient HX: C/O chest pressure with SOB. History of afib. ; Additional info: Cp TECHNIQUE: Imaging protocol: Radiologic exam of the chest. Views: 1 view. COMPARISON: CT angio chest PE protcl [id number] 10/23/2023 5:52 AM FINDINGS: Lungs: Unremarkable. No consolidation. Pleural spaces: Unremarkable. No pleural effusion. No pneumothorax. Heart/Mediastinum: Mild cardiomegaly. Vasculature: Aortic arch calcifications. Bones/joints: Mild degenerative disease of bilateral acromioclavicular joints. Cranial subluxation/dislocation of the left glenohumeral joint. XR/XR chest 1V portable [id number] IMPRESSION: 1. No acute cardiopulmonary process. 2. Cranial position of the left humerus suggestive of subluxation of the left glenohumeral joint.
--- NOTE | 2023-10-26 00:10 | ECG_ITS ---
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 Measurements Intervals [place] Rate: 68 P: 3 SC: 161 QRS: -54 QRSD: 157 T: 13 QT: 470 QTc: 501 Interpretive Statements SINUS RHYTHM INTRAVENTRICULAR CONDUCTION DELAY [130+ ms QRS DURATION] POSSIBLE LEFT VENTRICULAR HYPERTROPHY [VOLTAGE CRITERIA PLUS LAE OR QRS WIDENING] POSSIBLE SEPTAL MYOCARDIAL INFARCTION , OF INDETERMINATE AGE [30 ms Q WAVE IN V1/V2] LATERAL MYOCARDIAL INFARCTION , OF INDETERMINATE AGE [40+ ms Q WAVE AND/OR ST/T ABNORMALITY IN I/aVL/V5/V6] Compared to ECG 10/23/2023 05:47:30 Intraventricular conduction delay now present Myocardial infarct finding now present Electronically Signed On 10-26-2023 22:45:18 CDT by Jean Claude Crow M.D. [email or web address]
[2023-10-26 00:35] LABS: Basophils % 0.1 %; Eosinophils # 0.1 10^3/uL (0.0-0.8); Hematocrit 31.3 % (36-47); Lymphocytes # 2.5 10^3/uL (0.8-4.8); Lymphocytes % 34.3 %; Mean Corpuscular HGB Conc 32.3 g/dL (30-55); Mean Corpuscular Hemoglobin 30.7 pg (27-33); Mean Corpuscular Volume 95.1 fl (85-98); Mean Platelet Volume 8.5 fL (7.4-10.4); Monocytes # 1.3 10^3/uL (0.2-0.9); Monocytes % 17.9 %; Neutrophils # 3.32 10^3/uL (1.8-7.7); Neutrophils % 46.3 %; Nucleated Red Blood Cells % 0 %; Platelet Count 498 10^3/cmm (157-399); Red Blood Count 3.29 10^6/uL (3.85-5.65); Red Cell Distribution Width 14.7 % (12.1-15.1); White Blood Count 7.17 10^3/uL (3.29-11.43)
[2023-10-26 00:45] LABS: INR 0.84 (0.8-1.2)
[2023-10-26 00:46] LABS: Partial Thromboplastin Time 31.3 SECONDS (23.9-36.7)
[2023-10-26 00:52] LABS: Troponin(5th) Baseline 16 ng/L (0-10)
[2023-10-26 01:02] LABS: Alanine Aminotransferase 10 U/L (0-33); Albumin Level 3.5 g/dL (3.5-5.2); Alkaline Phosphatase 54 U/L (35-105); Anion Gap 17.2 (5-19); Aspartate Amino Transferase 14 U/L (0-32); Blood Urea Nitrogen 13 mg/dL (8-23); Calcium 8.5 mg/dL (8.5-10.5); Carbon Dioxide 21 mmol/L (22-29); Chloride 102 mmol/L (98-107); Creatinine Clr Calc Pharmacy 60.6426; Globulin 2.3 g/dL (1.3-4.6); Glucose 117 mg/dL (65-115); Magnesium 1.9 mg/dL (1.7-2.3); NT Pro B Type Natriuretic Pept 697 pg/mL (0-125); Osmolality Calculated 283 mOsm/kg (285-295); Potassium 4.2 mmol/L (3.5-5.1); Sodium 136 mmol/L (136-145); Thyroid Stimulating Hormone 4.23 uIU/mL (0.27-4.20); Total Bilirubin 0.2 mg/dL (0.15-1.2); Total Protein 5.8 g/dL (6.6-8.7)
[2023-10-26 01:03] LABS: Charge for UA Resulting for Rev
[2023-10-26 01:05] LABS: Bilirubin Urine Negative (Negative); Blood Urine Negative (Negative); Glucose Urine UA Negative (Normal); Ketones Urine Negative (Negative); Leukocyte Esterase Urine Negative (Negative); Nitrate Urine Negative (Negative); Protein Urine Negative (Negative); Specific Gravity, Urine 1.012 (1.005-1.030); Urine Appearance Clear (CLEAR); Urine Color Yellow (Yellow); Urobilinogen Urine 0.2 mg/dL (Negative); pH Urine 8.5 (5-7)
--- NOTE | 2023-10-26 01:06 | ED_ITS ---
HPI - Chest Pain 2 General: Chief Complaint: Chest Pain Stated Complaint: heart pounding SOB Time Seen by Provider: 10/26/23 00:10 History of Present Illness: 67-year-old female with a history of atr ial fibrillation. She awoke around 11 PM with sudden chest discomfort. She notes that her heart felt like it was pounding through her chest. She was short of breath with this. She is much improved now. Discomfort is gone. Palpitations are improved. She still short of breath. Initially her heart rate at home was in the 120s and 30s. Currently she is in sinus 65. Related Data Home Medications Medication Instructions Recorded Confirmed ferrous sulfate 325 mg (65 mg 325 mg PO DAILY 06/21/23 10/23/23 iron) tablet atorvastatin 80 mg tablet 80 mg PO DAILY 10/23/23 10/23/23 nifedipine 60 mg tablet,extended 60 mg PO DAILY 10/23/23 10/23/23 release 24 hr quetiapine 100 mg tablet (Seroquel) 100 mg PO BEDTIME 10/23/23 10/23/23 tramadol 100 mg tablet 100 mg PO Q6H PRN Pain 10/23/23 10/23/23 trazodone 100 mg tablet 100 mg PO BEDTIME 10/23/23 10/23/23 warfarin 5 mg tablet 5 mg PO DAILY 10/23/23 10/23/23 Previous Rx's Medication Instructions Recorded famotidine 20 mg tablet (Pepcid) 20 mg PO BID #180 tabs 06/10/23 hydralazine 50 mg tablet 75 mg (1.5 x 50 mg) PO TID #90 tabs 08/04/23 levothyroxine 25 mcg tablet 50 mcg (2 x 25 mcg) PO DAILY #90 08/04/23 tabs lisinopril 40 mg tablet 40 mg PO DAILY #30 tabs 08/31/23 magnesium oxide 400 mg (241.3 mg 400 mg PO DAILY #30 tabs 08/31/23 magnesium) tablet loratadine 10 mg tablet (Claritin) 10 mg PO DAILY #30 tabs 09/09/23 left arm sling #1 ea 09/17/23 escitalopram oxalate 10 mg tablet 10 mg PO DAILY #60 tabs 10/07/23 warfarin 4 mg tablet 4 mg PO DAILY #90 tabs 10/07/23 fluticasone propionate 50 2 spray intranasal DAILY #16 grams 10/23/23 mcg/actuation nasal spray,suspension hydrocodone 5 mg-acetaminophen 325 1 tab PO Q6H PRN pain 5 days #20 10/23/23 mg tablet tabs metoprolol tartrate 100 mg tablet 100 mg PO BID #60 tabs 10/23/23 Allergies Allergy/AdvReac Type Severity Reaction Status Date / Time No Known Drug Allergies Allergy Unknown Verified 10/25/23 23:58 PFSH ED 2 PFSH: Medical History Elevated d-dimer Elevated troponin Dyspnea Hypothyroidism Hyponatremia Atrial fibrillation with RVR Atrial fibrillation with RVR Dehydration Hyponatremia Altered mental status Subacromial impingement of left shoulder Rotator cuff tear, left Anemia Bipolar 2 disorder Anxiety Diabetes Hypercholesterolemia Syncope Urgency of urination Hypertension Surgical History Hx of section x 3 Hx of bilateral cataract extraction H/O gastric bypass Family History Grandmother Cancer Hyperlipidemia Hypertension Mother Hypertension CAD (coronary artery disease) unknown age of onset Denies family history of Diabetes Clotting disorder Dementia Chronic kidney disease (CKD) Suicide Anesthesia complication Bleeding disorder Lung disease Stroke Social History Smoking and tobacco/nicotine status: never used tobacco/nicotine Alcohol intake: never Substance/Drug Use: never Marital status: Physical Exam 2 Const: COMMON NORMALS: no acute distress GENERAL APPEARANCE: cooperative; not ill appearing and not frail appearing HENMT: COMMON NORMALS: normocephalic, atraumatic and Normal external nose present HEAD & SCALP: normocephalic and atraumatic FACE & SINUS: normal facial exam and face symmetric NOSE: Normal external nose present Eye: COMMON NORMALS: Equal, round and reactive pupils present and EOMs intact bilaterally PUPIL: Yes Equal, round and reactive pupils present Neck/C-Spine: GENERAL: Yes trachea midline Chest: CHEST: Yes Symmetrical chest wall rise Resp: COMMON NORMALS: No retractions and clear to auscultation bilaterally EFFORT & INSPECTION: Yes tachypneic AUSCULTATION: clear to auscultation bilaterally Cardio: COMMON NORMALS: regular rate and regular rhythm RATE: regular rate RHYTHM: regular rhythm GI: COMMON NORMALS: Normal to inspection, nondistended, normoactive bowel sounds present Extremity: COMMON NORMALS: no pedal edema Neuro: NANETTE COMA SCALE: document GCS findings Schwertner coma scale eye opening: Spontaneous Schwertner coma scale verbal response: Orientated Nanette coma scale motor response: Obey commands Schwertner coma scale total score: 15 S ENSORY EXAM: Yes extremities (intact) Psych: COMMON NORMALS: speech normal SPEECH: Yes normal speech Skin: COMMON NORMALS: no rashes or lesions noted GENERAL SKIN EXAM: no rashes or lesions noted Course 2 Vital Signs: Vital signs: Vital Signs Temperature 98.7 F 10/25/23 23:53 Pulse Rate 61 10/26/23 03:00 Respiratory Rate 17 10/26/23 03:00 Blood Pressure 126/53 10/26/23 03:00 Pulse Oximetry 95 10/26/23 03:00 Oxygen Delivery Me thod Nasal Cannula 10/26/23 00:28 Oxygen Flow Rate 2 10/26/23 00:28 MDM - Chest Pain Medical Decision Making Rate is regular now. EKG time 23: 46 shows a sinus rhythm with occasional PVCs. Rate is 75. [place] is normal. T waves are mildly peaked. No acute ST wave changes. Intervals are normal. Chest x-ray shows no acute process in the chest. There is a cranial position of the left humerus suggestive of left glenohumeral joint subluxation which is chronic. Laboratories show stable hemoglobin of 10. CBC and BMP are otherwise not remarkable. Baseline troponin is 16. BNP is 697. TSH is 4.23. Urinalysis is negative. Patient complained of intense headache despite morphine. Because of this, CT was ordered, and is negative for acute intracranial abnormality. Her rate remains controlled. Pressures improved. She will be discharged. Lab Data 10/26/23 00:12 10/26/23 00:12 Radiology Impressions Chest X-Ray 10/26/23 00:10 IMPRESSION: 1. No acute cardiopulmonary process. 2. Cranial position of the left humerus suggestive of subluxation of the left glenohumeral joint. Head CT 10/26/23 02:16 IMPRESSION: No acute intracranial process. Laboratory Results WBC 7.17 10^3/uL (3.29-11.43) 10/26/23 00:12 RBC 3.29 10^6/uL (3.85-5.65) L 10/26/23 00:12 Hgb 10.10 g/dL (11.27-16.99) L 10/26/23 00:12 Hct 31.3 % (36-47) L 10/26/23 00:12 MCV 95.1 fl (85-98) 10/26/23 00:12 MCH 30.7 pg (27-33) 10/26/23 00:12 MCHC 32.3 g/dL (30-55) 10/26/23 00:12 RDW 14.7 % (12.1-15.1) 10/26/23 00:12 Plt Count 498 10^3/cmm (157-399) H 10/26/23 00:12 MPV 8.5 fL (7.4-10.4) 10/26/23 00:12 Neut % (Auto) 46.3 % 10/26/23 00:12 Lymph % (Auto) 34.3 % 10/26/23 00:12 [place] % (Auto) 17.9 % 10/26/23 00:12 Eos % (Auto) 1.0 % 10/26/23 00:12 Baso % (Auto) 0.1 % 10/26/23 00:12 Neut # (Auto) 3.32 10^3/uL (1.8-7.7) 10/26/23 00:12 Lymph # (Auto) 2.5 10^3/uL (0.8-4.8) 10/26/23 00:12 [place] # (Auto) 1.3 10^3/uL (0.2-0.9) H 10/26/23 00:12 Eos # (Auto) 0.1 10^3/uL (0.0-0.8) 10/26/23 00:12 Baso # (Auto) 0.0 10^3/uL (0.0-0.1) 10/26/23 00:12 Nucleated RBC % (auto) 0 % 10/26/23 00:12 Nucleated RBCs # 0.0 /100WBC 10/26/23 00:12 PT 11.70 SECONDS (12.1-14.9) L 10/26/23 00:12 INR 0.84 (0.8-1.2) 10/26/23 00:12 APTT 31.3 SECONDS (23.9-36.7) 10/26/23 00:12 Sodium 136 mmol/L (136-145) 10/26/23 00:12 Potassium 4.2 mmol/L (3.5-5.1) 10/26/23 00:12 Chloride 102 mmol/L (98-107) 10/26/23 00:12 Carbon Dioxide 21 mmol/L (22-29) L 10/26/23 00:12 Anion Gap 17.2 (5-19) 10/26/23 00:12 BUN 13 mg/dL (8-23) 10/26/23 00:12 Creatinine 0.6 mg/dL (0.5-0.9) 10/26/23 00:12 GFR Calculation 100.0 mL/min (90-130) 10/26/23 00:12 Glucose 117 mg/dL (65-115) H 10/26/23 00:12 Calculated Osmolality 283 mOsm/kg (285-295) L 10/26/23 00:12 Calcium 8.5 mg/dL (8.5-10.5) 10/26/23 00:12 Magnesium 1.9 mg/dL (1.7-2.3) 10/26/23 00:12 Total Bilirubin 0.2 mg/dL (0.15-1.2) 10/26/23 00:12 AST 14 U/L (0-32) 10/26/23 00:12 ALT 10 U/L (0-33) 10/26/23 00:12 Alkaline Phosphatase 54 U/L (35-105) 10/26/23 00:12 Troponin T Baseline 16 ng/L (0-10) H 10/26/23 00:12 Troponin T 120 Minute 18.02 ng/L (0-10) H 10/26/23 02:24 Delta Troponin T 2.02 ABS# (0-10) 10/26/23 02:24 NT-Pro-B Natriuret Pep 697 pg/mL (0-125) H 10/26/23 00:12 Total Protein 5.8 g/dL (6.6-8.7) L 10/26/23 00:12 Albumin 3.5 g/dL (3.5-5.2) 10/26/23 00:12 Globulin 2.3 g/dL (1.3-4.6) 10/26/23 00:12 TSH 4.23 uIU/mL (0.27-4.20) H 10/26/23 00:12 Urine Color Yellow (Yellow) 10/26/23 00:50 Urine Appearance Clear (CLEAR) 10/26/23 00:50 Urine pH 8.5 (5-7) A 10/26/23 00:50 Ur Specific [place] 1.012 (1.005-1.030) 10/26/23 00:50 Urine Protein Negative (Negative) 10/26/23 00:50 Urine Glucose (UA) Negative (Normal) 10/26/23 00:50 Urine Ketones Negative (Negative) 10/26/23 00:50 Urine Blood Negative (Negative) 10/26/23 00:50 Urine Nitrate Negative (Negative) 10/26/23 00:50 Urine Bilirubin Negative (Negative) 10/26/23 00:50 Urine Urobilinogen 0.2 mg/dL (Negative) 10/26/23 00:50 Ur Leukocyte Esterase Negative (Negative) 10/26/23 00:50 Urine RBC 0-2 /hpf (0-2) 10/26/23 00:50 Urine WBC 0-5 /hpf (0-5) 10/26/23 00:50 Ur Squamous Epith Cells 0-5 /hpf (0-5) 10/26/23 00:50 Amorphous Sediment Not Reportable 10/26/23 00:50 Urine Bacteria None seen /hpf (NONE) 10/26/23 00:50 Hyaline Casts 0-4 /lpf H 10/26/23 00:50 All radiology interpretation(s) finalized by discharge Discharge Plan Discharge Patient Disposition: Home Clinical Impression: Atrial fibrillation, Heart palpitations, Headache Condition: Stable Prescriptions: No Action (DME) left arm sling See Rx Instructions .Route .MEDSUPPLY Qty: 1 0RF Rx Instructions: As directed famotidine [Pepcid] 20 mg tablet 20 mg PO BID Qty: 180 11RF hydralazine 50 mg tablet 75 mg PO TID Qty: 90 11RF levothyroxine 25 mcg tablet 50 mcg PO DAILY Qty: 90 11RF lisinopril 40 mg tablet 40 mg PO DAILY Qty: 30 11RF magnesium oxide 400 mg (241.3 mg magnesium) tablet 400 mg PO DAILY Qty: 30 3RF loratadine [Claritin] 10 mg tablet 10 mg PO DAILY Qty: 30 11RF fluticasone propionate 50 mcg/actuation spray,suspension 2 spray intranasal DAILY Qty: 16 11RF hydrocodone-acetaminophen 5-325 mg tablet 1 tab PO Q6H PRN (Reason: pain) 5 Days Qty: 20 0RF warfarin 4 mg tablet 4 mg PO DAILY Qty: 90 4RF escitalopram oxalate 10 mg tablet 10 mg PO DAILY Qty: 60 2RF quetiapine [Seroquel] 100 mg tablet 100 mg PO BEDTIME atorvastatin 80 mg tablet 80 mg PO DAILY nifedipine 60 mg tablet extended release 24hr 60 mg PO DAILY trazodone 100 mg tablet 100 mg PO BEDTIME warfarin 5 mg tablet 5 mg PO DAILY tramadol 100 mg tablet 100 mg PO Q6H PRN (Reason: Pain) metoprolol tartrate 100 mg tablet 100 mg PO BID Qty: 60 4RF ferrous sulfate 325 mg (65 mg iron) tablet 325 mg PO DAILY Discharge Orders: Discharge ED (Routine); Ordered 10/26/23 Ordered By: Evelio Faria Referrals: Obey Rose MD [Primary Care Provider] - 1-3 days Patient Instructions: A-fib (Atrial Fibrillation) (ED), Heart Palpitations (ED), Acute Headache (ED), Opioid Safety, Pain Management Activity Restrictions/Additional Instructions: Return for worsening chest discomfort, worsening shortness of breath, continued palpitations, other concerning symptoms. See your doctor this week. 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
[2023-10-26 01:10] LABS: Bacteria Urine None Seen /hpf; Hyaline Casts Urine 0-4 /lpf; RBC Urine 0-2 /hpf (0-2); Squamous Epithelial Cell Urine 0-5 /hpf (0-5); WBC Urine 0-5 /hpf (0-5)
[2023-10-26] MEDS: ondansetron 2 mg/ML SDV 2 mL 4 MG IVP (01:51)
[2023-10-26] MEDS: morphine 4 mg/mL SDV 1 mL IVP (01:51)
--- NOTE | 2023-10-26 02:10 | ECG_ITS ---
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 Measurements Intervals [place] Rate: 61 P: 73 IN: 150 QRS: 70 QRSD: 80 T: 52 QT: 457 QTc: 460 Interpretive Statements SINUS RHYTHM Compared to ECG 10/26/2023 00:38:34 Intraventricular conduction delay no longer present Myocardial infarct finding no longer present Electronically Signed On 10-26-2023 22:52:17 CDT by Jean Claude Crow M.D. [id number]
--- NOTE | 2023-10-26 02:16 | CTR_ITS ---
PROCEDURE INFORMATION: Exam: CT Head Without Contrast Exam date and time: 10/26/2023 2:27 AM Age: 67 years old Clinical indication: Pain; Headache; Patient HX: C/O generalized DUKES. TECHNIQUE: Imaging protocol: Computed tomography of the head without contrast. Radiation optimization: All CT scans at this facility use at least one of these dose optimization techniques: automated exposure control; mA and/or kV adjustment per patient size (includes targeted exams where dose is matched to clinical indication); or iterative reconstruction. COMPARISON: CT head wo con* [id number] 10/05/2023 2:51 PM RADIATION DOSE METRICS: Total DLP (mGy-cm): 1079.44 FINDINGS: Brain: There is no mass effect, midline shift, acute hemorrhage, extra-axial fluid collection or acute lobar infarct. Cerebral ventricles: No ventriculomegaly. Paranasal sinuses: Visualized sinuses are unremarkable. No fluid levels. Mastoid air cells: Visualized mastoid air cells are well aerated. Orbital cavities: The patient was bilateral cataract surgery. Bones: Unremarkable. No acute fracture. Soft tissues: Unremarkable. CT/CT head wo con* [id number] IMPRESSION: No acute intracranial process.
[2023-10-26] MEDS: LORazepam 2 mg/mL INJ 1 mL 1 MG IVP (02:43)
[2023-10-26 03:00] LABS: Troponin 5 2HR 18.02 ng/L (0-10); Troponin 5 2HR Delta 2.02 ABS# (0-10)
--- NOTE | 2023-10-26 06:10 | ECG_ITS ---
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 Measurements Intervals [place] Rate: 76 P: 57 CA: 145 QRS: 54 QRSD: 77 T: 46 QT: 408 QTc: 459 Interpretive Statements SINUS RHYTHM WITH OCCASIONAL SUPRAVENTRICULAR PREMATURE COMPLEXES INTERPRETATION BASED ON A DEFAULT AGE OF 40 YEARS Diffuse early repolarization changes Compared to ECG 10/23/2023 05:47:30 No significant changes Electronically Signed On 10-26-2023 22:51:31 CDT by Jean Claude Crow M.D. [id number]
== END 2023-10-26 03:56 | disposition home or self-care (01) ==
PROVIDERS: Emergency Provider Emergency Medicine; PCP Family Medicine
DX: R00.2 Palpitations (principal); I48.91 Unspecified atrial fibrillation; R51.9 Headache, unspecified; Z79.01 Long term (current) use of anticoagulants; Z98.84 Bariatric surgery status; E11.9 Type 2 diabetes mellitus without complications; I10 Essential (primary) hypertension
CPT/HCPCS: 70450; 71045; 80053; 81003; 81015; 83735; 83880; 84443; 84484; 85025; 85610; 85730; 93005; 96374; 96375; 99285; J2060; J2270; J2405

== ENCOUNTER → 2023-10-27 10:27 | Outpatient (BNVA) | payer MEDICARE, SELFPAY | PROVIDERS: PCP Family Medicine; Visit Provider Student in an Organized Health Care Education/Training Program | DX: M21.822 Other specified acquired deformities of left upper arm; M19.012 Primary osteoarthritis, left shoulder | CPT/HCPCS: 99214 ==

== ENCOUNTER → 2023-10-28 07:48 | Outpatient (BNVA) | payer MEDICARE, SELFPAY | PROVIDERS: PCP Family Medicine; Visit Provider Family Medicine | DX: I49.1 Atrial premature depolarization (principal) | CPT/HCPCS: 85610 ==

== ENCOUNTER 2023-11-05 10:43 | Outpatient (CLI) | payer MEDICARE, SELFPAY ==
--- NOTE | 2023-11-05 11:00 | CT_ITS ---
WS: [id number] CT LEFT SHOULDER, NONCONTRAST HISTORY: LEFT REVERSE TOTAL SHOULDER ARTHROPLASTY Technique: All CT scans at [facility] use at least one of these dose optimization techniques: automated exposure control; mA and/or kV adjustment per patient size (includes targeted exams where dose is matched to clinical indication); or iterative reconstruction. DLP: 226.36 mGy.cm COMPARISON: Radiograph 10/16/2023 Mild AC joint arthritis. No acute fractures. Mildly high riding humeral head. Well-circumscribed osse ous fragment from the posterior labrum may be from a prior injury. Humeral head cortical irregulariti es with a few subchondral cysts. Marked atrophy of the supraspinatus and infraspinatus send subscapularis muscles. Visualized lung is clear. Moderate atherosclerosis aorta. Mildly dilated pulmonary artery. CT/CT shoulder LT wo con* [id number] IMPRESSION: 1. Mild AC joint arthritis. 2. Degenerative changes surrounding the humeral head. 3. Marked atrophy of the supraspinatus, infraspinatus and subscapularis muscle s. 4. No acute fracture.
== END 2023-11-05 10:44 | disposition home or self-care (01) ==
LOC: RAD 10:45
PROVIDERS: PCP Family Medicine; Visit Provider Student in an Organized Health Care Education/Training Program
DX: M75.102 Unspecified rotator cuff tear or rupture of left shoulder, not specified as traumatic (principal); Z01.818 Encounter for other preprocedural examination; I48.91 Unspecified atrial fibrillation; E78.00 Pure hypercholesterolemia, unspecified; I70.0 Atherosclerosis of aorta; I49.1 Atrial premature depolarization; T50.905A Adverse effect of unspecified drugs, medicaments and biological substances, initial encounter; R01.1 Cardiac murmur, unspecified; H69.90 Unspecified Eustachian tube disorder, unspecified ear; N30.00 Acute cystitis without hematuria; M67.911 Unspecified disorder of synovium and tendon, right shoulder; M67.912 Unspecified disorder of synovium and tendon, left shoulder; M75.41 Impingement syndrome of right shoulder; E87.1 Hypo-osmolality and hyponatremia; M19.019 Primary osteoarthritis, unspecified shoulder; R42 Dizziness and giddiness
CPT/HCPCS: 73200; 85610

== ENCOUNTER 2023-11-13 14:56 | Emergency (ER) | payer MEDICARE, SELFPAY ==
[2023-11-13] VITALS (12 sets, daily range): BP systolic 124–213; BP diastolic 53–97; PULSE 56–71; RESP 18; TEMP 36.8; O2SAT 90–96
--- NOTE | 2023-11-13 15:02 | ECG_ITS ---
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 Measurements Intervals [place] Rate: 69 P: 38 RI: 153 QRS: 79 QRSD: 82 T: 58 QT: 418 QTc: 451 Interpretive Statements SINUS RHYTHM Compared to ECG 10/26/2023 02:21:49 No significant changes Electronically Signed On 11-13-2023 16:51:12 CDT by Jean Claude Crow M.D. [id number]
--- NOTE | 2023-11-13 15:27 | XR_ITS ---
WS: [id number] XR chest 1V portable [id number] REASON FOR EXAM: chest pain FINDINGS: Mild cardiomegaly. Mild central venous congestion. Bilateral calcified granulomatous disease. There are diffuse reticular interstitial lung opacities in the lower and mid lung hector. There is blunting of both costophrenic angles. Mild degenerative spondylosis in the thoracic spine with moderate osteoarthritis in both shoulder tammy nts. XR/XR chest 1V portable [id number] IMPRESSION: Constellation of findings is most suggestive of congestive heart failure.
[2023-11-13 15:41] LABS: Basophils % 0.3 %; Eosinophils # 0.1 10^3/uL (0.0-0.8); Eosinophils % 1.3 %; Hematocrit 32.2 % (36-47); Lymphocytes # 2.2 10^3/uL (0.8-4.8); Lymphocytes % 28.9 %; Mean Corpuscular HGB Conc 32.6 g/dL (30-55); Mean Corpuscular Hemoglobin 30.2 pg (27-33); Mean Corpuscular Volume 92.5 fl (85-98); Mean Platelet Volume 8.7 fL (7.4-10.4); Monocytes # 0.8 10^3/uL (0.2-0.9); Monocytes % 10.4 %; Neutrophils # 4.53 10^3/uL (1.8-7.7); Neutrophils % 58.8 %; Nucleated Red Blood Cells % 0 %; Platelet Count 409 10^3/cmm (157-399); Red Blood Count 3.48 10^6/uL (3.85-5.65); Red Cell Distribution Width 13.8 % (12.1-15.1); White Blood Count 7.69 10^3/uL (3.29-11.43)
--- NOTE | 2023-11-13 15:47 | ED_ITS ---
HPI - Arrhythmia/Palpitations 2 General: Chief Complaint: Arrhythmia/Palpitations Stated Complaint: high blood pressure, chest pain, sob Time Seen by Provider: 11/13/23 15:27 History of Present Illness: Patient presents to the ER with elevated blood pressure of 240/198, palpitations, headache. She says started feeling better earlier this morning and felt worse throughout the day. Patient had chest pain earlier this a.m. and last night. Patient has been taking her lisinopril and hydralazine but she said she is recently taken off her clonidine about a month ago. Patient says her blood pressure may have been high last 2 or 3 days but she was afraid to check until she got feeling so bad today. Related Data Home Medications Medication Instructions Recorded Confirmed ferrous sulfate 325 mg (65 mg 325 mg PO DAILY 06/21/23 11/04/23 iron) tablet atorvastatin 80 mg tablet 80 mg PO DAILY 10/23/23 11/04/23 nifedipine 60 mg tablet,extended 60 mg PO DAILY 10/23/23 11/04/23 release 24 hr quetiapine 100 mg tablet (Seroquel) 100 mg PO BEDTIME 10/23/23 11/04/23 tramadol 100 mg tablet 100 mg PO Q6H PRN Pain 10/23/23 11/04/23 trazodone 100 mg tablet 100 mg PO BEDTIME 10/23/23 11/04/23 warfarin 5 mg tablet 5 mg PO DAILY 10/23/23 11/04/23 Previous Rx's Medication Instructions Recorded famotidine 20 mg tablet (Pepcid) 20 mg PO BID #180 tabs 06/10/23 hydralazine 50 mg tablet 75 mg (1.5 x 50 mg) PO TID #90 tabs 08/04/23 levothyroxine 25 mcg tablet 50 mcg (2 x 25 mcg) PO DAILY #90 08/04/23 tabs lisinopril 40 mg tablet 40 mg PO DAILY #30 tabs 08/31/23 magnesium oxide 400 mg (241.3 mg 400 mg PO DAILY #30 tabs 08/31/23 magnesium) tablet loratadine 10 mg tablet (Claritin) 10 mg PO DAILY #30 tabs 09/09/23 left arm sling #1 ea 09/17/23 escitalopram oxalate 10 mg tablet 10 mg PO DAILY #60 tabs 10/07/23 warfarin 4 mg tablet 4 mg PO DAILY #90 tabs 10/07/23 fluticasone propionate 50 2 spray intranasal DAILY #16 grams 10/23/23 mcg/actuation nasal spray,suspension metoprolol tartrate 100 mg tablet 100 mg PO BID #60 tabs 10/23/23 hydrocodone 5 mg-acetaminophen 325 1 tab PO BID PRN pain 30 days #60 10/30/23 mg tablet tabs Allergies Allergy/AdvReac Type Severity Reaction Status Date / Time No Known Drug Allergies Allergy Unknown Verified 11/13/23 15:09 Review of Systems 2 General: Reports: 10 or more systems reviewed and unremarkable except in HPI and below PFSH ED 2 PFSH: Medical History Elevated d-dimer Elevated troponin Dyspnea Hypothyroidism Hyponatremia Atrial fibrillation with RVR Atrial fibrillation with RVR Dehydration Hyponatremia Altered mental status Subacromial impingement of left shoulder Rotator cuff tear, left Anemia Bipolar 2 disorder Anxiety Diabetes Hypercholesterolemia Syncope Urgency of urination Hypertension Surgical History Hx of section x 3 Hx of bilateral cataract extraction H/O gastric bypass Family History Grandmother Cancer Hyperlipidemia Hypertension Mother Hypertension CAD (coronary artery disease) unknown age of onset Denies family history of Diabetes Clotting disorder Dementia Chronic kidney disease (CKD) Suicide Anesthesia complication Bleeding disorder Lung disease Stroke Social History Smoking and tobacco/nicotine status: unknown if used tobacco/nicotine Alcohol intake: never Substance/Drug Use: never Marital status: Physical Exam 2 Const: COMMON NORMALS: no acute distress, average body habitus, patient oriented x3, no limitations, healthy appearing, alert and well nourished HENMT: COMMON NORMALS: normocephalic, atraumatic, hearing grossly normal bilaterally, external ears normal and moist oral mucous membranes HEAD & SCALP: normocephalic and atraumatic EXTERNAL EAR: Yes external ears normal Neck/C-Spine: COMMON NORMALS: no JVD Chest: COMMONS NORMALS: normal inspection of the chest and normal palpation of entire chest wall Resp: COMMON NORMALS: normal respiratory effort, No retractions, No use of accessory muscles and clear to auscultation bilaterally AUSCULTATION: clear to auscultation bilaterally Cardio: COMMON NORMALS: no JVD, regular rate, regular rhythm, S1 normal heart sound present, S2 normal heart sound present, No clicks present (Cardio), No murmurs present (Cardio) and No rub (Cardio) RATE: regular rate RHYTHM: r egular rhythm HEART SOUNDS: S1 normal heart sound present and S2 normal heart sound present GI: COMMON NORMALS: Normal to inspection, nondistended, normoactive bowel sounds present, Soft to palpation, non-tender, No hepatosplenomegaly present and no masses PALPATION: Yes Soft to palpation and Yes No hepatosplenomegaly present Neuro: COMMON NORMALS: patient oriented x3 SENSORIUM/ORIENTATION: Yes alert Course 2 Vital Signs: Vital signs: Vital Signs Temperature 98.2 F 11/13/23 15:00 Pulse Rate 68 11/13/23 20:21 Respiratory Rate 18 11/13/23 19:25 Blood Pressure 143/53 11/13/23 20:21 Pulse Oximetry 90 11/13/23 20:21 Oxygen Delivery Me thod Room Air 11/13/23 19:23 MDM - Arrhythmia/Palpitations Medical Decision Making Comes in for high blood pressure and headache. Patient is initial pressure was about 240/198 at home when she came in she was 213/90 with a headache. Patient was given Toradol, morphine, clonidine, and her blood pressure improved to 143/53 and her headache improved. Patient had lab work as well as a head CT and chest x-ray all of which was essentially benign other mild symptoms of congestive heart failure. Patient was feeling better. Patient will be discharged home. Patient should follow-up with her PCP and/or business administrator within next 1 week. Differential Diagnosis Likely palpitations Medical Records I reviewed the patient's medical records. Lab Data I reviewed the patient's lab results. 11/13/23 15:31 11/13/23 15:31 Radiology Impressions Chest X-Ray 11/13/23 15:27 IMPRESSION: Constellation of findings is most suggestive of congestive heart failure. Head CT 11/13/23 18:56 IMPRESSION: No acute intracranial abnormality. Laboratory Results WBC 7.69 10^3/uL (3.29-11.43) 11/13/23 15:31 RBC 3.48 10^6/uL (3.85-5.65) L 11/13/23 15: Hgb 10.50 g/dL (11.27-16.99) L 11/13/23 15: Hct 32.2 % (36-47) L 11/13/23 15: MCV 92.5 fl (85-98) 11/13/23 15: MCH 30.2 pg (27-33) 11/13/23 15: MCHC 32.6 g/dL (30-55) 11/13/23 15: RDW 13.8 % (12.1-15.1) 11/13/23 15: Plt Count 409 10^3/cmm (157-399) H 11/13/23 15: MPV 8.7 fL (7.4-10.4) 11/13/23 15: Neut % (Auto) 58.8 % 11/13/23 15: Lymph % (Auto) 28.9 % 11/13/23 15: [place] % (Auto) 10.4 % 11/13/23 15: Eos % (Auto) 1.3 % 11/13/23: Baso % (Auto) 0.3 % 11/13/23 15: Neut # (Auto) 4.53 10^3/uL (1.8-7.7) 11/13/23 15: Lymph # (Auto) 2.2 10^3/uL (0.8-4.8) 11/13/23 15: [place] # (Auto) 0.8 10^3/uL (0.2-0.9) 11/13/23 15: Eos # (Auto) 0.1 10^3/uL (0.0-0.8) 11/13/23 15: Baso # (Auto) 0.0 10^3/uL (0.0-0.1) 11/13/23: Nucleated RBC % (auto) 0 % 11/13/23 15: Nucleated RBCs # 0.0 /100WBC 11/13/23 15: PT 13.30 SECONDS (12.1-14.9) 11/13/23 15: INR 0.98 (0.8-1.2) 11/13/23 15:31 Sodium 136 mmol/L (136-145) 11/13/23 15:31 Potassium 4.1 mmol/L (3.5-5.1) 11/13/23 15:31 Chloride 100 mmol/L (98-107) 11/13/23 15:31 Carbon Dioxide 23 mmol/L (22-29) 11/13/23 15:31 Anion Gap 17.1 (5-19) 11/13/23 15:31 BUN 11 mg/dL (8-23) 11/13/23 15:31 Creatinine 0.5 mg/dL (0.5-0.9) 11/13/23 15:31 GFR Calculation 123.4 mL/min (90-130) 11/13/23 15:31 Glucose 106 mg/dL (65-115) 11/13/23 15:31 Calculated Osmolality 282 mOsm/kg (285-295) L 11/13/23 15:31 Calcium 8.9 mg/dL (8.5-10.5) 11/13/23 15:31 Magnesium 1.8 mg/dL (1.7-2.3) 11/13/23 15:31 Total Bilirubin 0.4 mg/dL (0.15-1.2) 11/13/23 15:31 AST 13 U/L (0-32) 11/13/23 15:31 ALT 7 U/L (0-33) 11/13/23 15:31 Alkaline Phosphatase 51 U/L (35-105) 11/13/23 15:31 Troponin T Baseline 10 ng/L (0-10) 11/13/23 15:31 Troponin T 120 Minute 9.98 ng/L (0-10) 11/13/23 16:46 Delta Troponin T -0.02 ABS# (0-10) L 11/13/23 16:46 Total Protein 6.3 g/dL (6.6-8.7) L 11/13/23 15:31 Albumin 3.7 g/dL (3.5-5.2) 11/13/23 15:31 Globulin 2.6 g/dL (1.3-4.6) 11/13/23 15:31 TSH 3.37 uIU/mL (0.27-4.20) 11/13/23 15:31 All radiology interpretation(s) finalized by discharge EKG Data EKG 1: I personally reviewed and interpreted this EKG as follows: EKG interpretation date: 11/13/23 EKG interpretation time: 15:02 Interpretation: Ventricular rate 69, ME interval 153, QRS 82, QTc of 438, sinus rhythm Other EKG comments: Chest X-Ray 11/13/23 15:27 IMPRESSION: Constellation of findings is most suggestive of congestive heart failure. Head CT 11/13/23 18:56 IMPRESSION: No acute intracranial abnormality. Discharge Plan Discharge Patient Disposition: Home Clinical Impression: Hypertension Qualifiers: Hypertension type: unspecified Qualified Code(s): I10 - Essential (primary) hypertension Headache Qualifiers: Headache type: unspecified Headache chronicity pattern: acute headache I ntractability: not intractable Qualified Code(s): R51.9 - Headache, unspecified Condition: Stable Prescriptions: No Action (DME) left arm sling See Rx Instructions .Route .MEDSUPPLY Qty: 1 0RF Rx Instructions: As directed famotidine [Pepcid] 20 mg tablet 20 mg PO BID Qty: 180 11RF hydralazine 50 mg tablet 75 mg PO TID Qty: 90 11RF levothyroxine 25 mcg tablet 50 mcg PO DAILY Qty: 90 11RF lisinopril 40 mg tablet 40 mg PO DAILY Qty: 30 11RF magnesium oxide 400 mg (241.3 mg magnesium) tablet 400 mg PO DAILY Qty: 30 3RF loratadine [Claritin] 10 mg tablet 10 mg PO DAILY Qty: 30 11RF fluticasone propionate 50 mcg/actuation spray,suspension 2 spray intranasal DAILY Qty: 16 11RF hydrocodone-acetaminophen 5-325 mg tablet 1 tab PO BID PRN (Reason: pain) 30 Days Qty: 60 0RF warfarin 4 mg tablet 4 mg PO DAILY Qty: 90 4RF escitalopram oxalate 10 mg tablet 10 mg PO DAILY Qty: 60 2RF quetiapine [Seroquel] 100 mg tablet 100 mg PO BEDTIME atorvastatin 80 mg tablet 80 mg PO DAILY nifedipine 60 mg tablet extended release 24hr 60 mg PO DAILY trazodone 100 mg tablet 100 mg PO BEDTIME warfarin 5 mg tablet 5 mg PO DAILY tramadol 100 mg tablet 100 mg PO Q6H PRN (Reason: Pain) metoprolol tartrate 100 mg tablet 100 mg PO BID Qty: 60 4RF ferrous sulfate 325 mg (65 mg iron) tablet 325 mg PO DAILY Discharge Orders: Discharge ED (Routine); Ordered 11/13/23 Ordered By: Wyatt Ragsdale Referrals: Obey Rose MD [Primary Care Provider] - Patient Instructions: Opioid Safety, Pain Management Coding Level of Care Code ED Needleworker for Mayela Jacobsen
[2023-11-13] MEDS: cloNIDine 0.1 mg Tablet 0.2 MG PO (15:53)
[2023-11-13 15:56] LABS: INR 0.98 (0.8-1.2)
[2023-11-13 16:00] LABS: Troponin(5th) Baseline 10 ng/L (0-10)
[2023-11-13 16:09] LABS: Alanine Aminotransferase 7 U/L (0-33); Albumin Level 3.7 g/dL (3.5-5.2); Alkaline Phosphatase 51 U/L (35-105); Anion Gap 17.1 (5-19); Aspartate Amino Transferase 13 U/L (0-32); Blood Urea Nitrogen 11 mg/dL (8-23); Calcium 8.9 mg/dL (8.5-10.5); Carbon Dioxide 23 mmol/L (22-29); Chloride 100 mmol/L (98-107); Creatinine Clr Calc Pharmacy 58.6612; Globulin 2.6 g/dL (1.3-4.6); Glomerular Filtration Rate 123.4 mL/min (90-130); Glucose 106 mg/dL (65-115); Magnesium 1.8 mg/dL (1.7-2.3); Osmolality Calculated 282 mOsm/kg (285-295); Potassium 4.1 mmol/L (3.5-5.1); Sodium 136 mmol/L (136-145); Thyroid Stimulating Hormone 3.37 uIU/mL (0.27-4.20); Total Bilirubin 0.4 mg/dL (0.15-1.2); Total Protein 6.3 g/dL (6.6-8.7)
[2023-11-13] MEDS: LORazepam 2 mg/mL INJ 1 mL 0.5 MG IVP (16:59)
[2023-11-13 17:18] LABS: Troponin 5 2HR 9.98 ng/L (0-10)
--- NOTE | 2023-11-13 17:19 | ECG_ITS ---
[facility] Test Date: 2023-11-13 Pat Name: Trish Rocha Department: Room: Gender: Female [employer]: : 1955 Requested By: Wyatt Ragsdale Order Number: [id number] Micah MD: Sam Robertson M.D. Measurements Intervals [place] Rate: 54 P: 51 SC: 156 QRS: 28 QRSD: 81 T: 23 QT: 465 QTc: 443 Interpretive Statements SINUS BRADYCARDIA Compared to ECG 11/13/2023 15:02:33 Sinus rhythm no longer present Electronically Signed On 11-15-2023 9:32:08 CDT by Sam Robertson M.D. [email or web address] fostoria community hospitalCape City Command/store/[id number]
[2023-11-13 17:25] LABS: Troponin 5 2HR Delta -0.02 ABS# (0-10)
[2023-11-13] MEDS: ketorolac 30 mg/mL INJ IM (18:19)
--- NOTE | 2023-11-13 18:24 | PC.NURSE ---
PT STATES PT KEEPS HAVING SPELLS OF PASSING OUT. THIS NURSE WITNESSED ONE OF THOSE SPELLS. PT APPEARS TO LOSE CONSCIOUSNESS BY DROPPING HER HEAD, CLOSING HER EYES AND WITHIN SECONDS SITTING BACK UP. PT APPEARS CONFUSED AFTER SPELL. PT HEART RATE REMAINS STABLE WITHOUT DROPPING AND OXYGEN STAY AT BASELINE 95% ON RA. REQUESTING TO SPEAK TO PHYSICIAN. DR. BOYCE NOTIFIED AND STATES HE WILL GO SPEAK WITH PATIENT AND .
--- NOTE | 2023-11-13 18:54 | PC.NURSE ---
Shiloh JALLOH and this preceptor assumed care of patient from Candie JALLOH at shift change.
--- NOTE | 2023-11-13 18:56 | CTR_ITS ---
PROCEDURE INFORMATION: Exam: CT Head Without Contrast Exam date and time: 11/13/2023 7:03 PM Age: 67 years old Clinical indication: Pain; Headache; Patient HX: DUKES with hypertension; Additional info: Headache HTN TECHNIQUE: Imaging protocol: Computed tomography of the head without contrast. Radiation optimization: All CT scans at this facility use at least one of these dose optimization techniques: automated exposure control; mA and/or kV adjustment per patient size (includes targeted exams where dose is matched to clinical indication); or iterative reconstruction. COMPARISON: CT head wo con* [id number] 10/26/2023 2:27 AM RADIATION DOSE METRICS: Total DLP (mGy-cm): 1060.48 FINDINGS: Brain: Normal. No hemorrhage. Unremarkable white matter. No mass effect. Cerebral ventricles: No ventriculomegaly. Paranasal sinuses: Visualized sinuses are unremarkable. No fluid levels. Mastoid air cells: Visualized mastoid air cells are well aerated. Bones: Unremarkable. No acute fracture. Soft tissues: Unremarkable. CT/CT head wo con* [id number] IMPRESSION: No acute intracranial abnormality.
[2023-11-13] MEDS: morphine 4 mg/mL SDV 1 mL 2 MG IVP (19:25)
--- NOTE | 2023-11-13 20:23 | PC.NURSE ---
Hydralazine held per , BP 143/53.
== END 2023-11-13 20:41 | disposition home or self-care (01) ==
PROVIDERS: Emergency Provider Emergency Medicine; PCP Family Medicine
DX: I10 Essential (primary) hypertension (principal); R51.9 Headache, unspecified; Z79.01 Long term (current) use of anticoagulants; E11.9 Type 2 diabetes mellitus without complications
CPT/HCPCS: 36415; 70450; 71045; 80053; 83735; 84443; 84484; 85025; 85610; 93005; 96374; 96375; 99285; J1885; J2060; J2270

== ENCOUNTER 2023-11-14 17:52 | Inpatient (IN) | payer MEDICARE, SELFPAY ==
[2023-11-14] VITALS (14 sets, daily range): BP systolic 134–211; BP diastolic 57–97; PULSE 53–68; RESP 14–26; TEMP 36.9; O2SAT 90–97; BMI 27.9; BMI 30.6
--- NOTE | 2023-11-14 18:03 | ECG_ITS ---
[facility] Test Date: 2023-11-14 Pat Name: Trish Rocha Department: Room: Gender: Female [employer]: : 1955 Requested By: Wyatt Ragsdale Order Number: [id number] Micah MD: Sam Robertson M.D. Measurements Intervals [place] Rate: 65 P: 46 [place]: 155 QRS: 59 QRSD: 91 T: 41 QT: 427 QTc: 444 Interpretive Statements SINUS RHYTHM Compared to ECG 11/13/2023 17:19:50 Sinus bradycardia no longer present Electronically Signed On 11-15-2023 9:15:26 CDT by Sam Robertson M.D. [email or web address] [email or web address]/[id number] f
--- NOTE | 2023-11-14 18:31 | XRR_ITS ---
PROCEDURE INFORMATION: Exam: XR Chest Exam date and time: 11/14/2023 7:30 PM Age: 67 years old Clinical indication: Pain; Chest pressure; Patient HX: C/O cp TECHNIQUE: Imaging protocol: Radiologic exam of the chest. Views: 1 view. COMPARISON: CR XR chest 1V portable [id number] 11/13/2023 3:50 PM FINDINGS: Lungs: Mild coarsened interstitial markings are similar prior. No focal consolidation. Pleural spaces: Unremarkable. No pleural effusion. No pneumothorax. Heart/Mediastinum: Stable cardiomediastinal contours. Vasculature: Atherosclerotic aortic calcifications. Bones/joints: Similar superior left humeral subluxation. XR/XR chest 1V portable [id number] IMPRESSION: Mild coarsened interstitial markings may be chronic. Superimposed mild pulmonary edema or atypical infection difficult to exclude.
[2023-11-14 18:46] LABS: Basophils % 0.4 %; Eosinophils # 0.1 10^3/uL (0.0-0.8); Eosinophils % 1.8 %; Hematocrit 30.2 % (36-47); Lymphocytes # 2.2 10^3/uL (0.8-4.8); Lymphocytes % 32.8 %; Mean Corpuscular HGB Conc 33.4 g/dL (30-55); Mean Corpuscular Hemoglobin 29.9 pg (27-33); Mean Corpuscular Volume 89.3 fl (85-98); Mean Platelet Volume 8.7 fL (7.4-10.4); Monocytes # 0.8 10^3/uL (0.2-0.9); Monocytes % 11.9 %; Nucleated Red Blood Cells % 0 %; Platelet Count 417 10^3/cmm (157-399); Red Blood Count 3.38 10^6/uL (3.85-5.65); Red Cell Distribution Width 13.9 % (12.1-15.1)
--- NOTE | 2023-11-14 18:46 | CTR_ITS ---
PROCEDURE INFORMATION: Exam: CT Head Without Contrast Exam date and time: 11/14/2023 6:50 PM Age: 67 years old Clinical indication: Pain; Headache; Patient HX: C/O DUKES with dizziness and hypertension. CT examination 24 hours ago for same symptoms. ; Additional info: Headache, HTN TECHNIQUE: Imaging protocol: Computed tomography of the head without contrast. Radiation optimization: All CT scans at this facility use at least one of these dose optimization techniques: automated exposure control; mA and/or kV adjustment per patient size (includes targeted exams where dose is matched to clinical indication); or iterative reconstruction. COMPARISON: CT head wo con* [id number] 11/13/2023 7:03 PM RADIATION DOSE METRICS: Total DLP (mGy-cm): 1026.28 FINDINGS: Brain: Normal. No hemorrhage. Unremarkable white matter. No mass effect. Cerebral ventricles: No ventriculomegaly. Paranasal sinuses: Visualized sinuses are unremarkable. No fluid levels. Mastoid air cells: Visualized mastoid air cells are well aerated. Orbital cavities: Bilateral lens replacements. Bones: Mild hyperostosis frontalis. No acute fracture. Soft tissues: Unremarkable. CT/CT head wo con* [id number] IMPRESSION: No acute intracranial findings.
[2023-11-14 18:51] LABS: INR 1.03 (0.8-1.2)
[2023-11-14 18:52] LABS: Partial Thromboplastin Time 33.6 SECONDS (23.9-36.7)
[2023-11-14 18:59] LABS: Troponin(5th) Baseline 14 ng/L (0-10)
[2023-11-14 19:07] LABS: Alanine Aminotransferase 7 U/L (0-33); Albumin Level 3.6 g/dL (3.5-5.2); Alkaline Phosphatase 47 U/L (35-105); Anion Gap 16.7 (5-19); Aspartate Amino Transferase 12 U/L (0-32); Blood Urea Nitrogen 13 mg/dL (8-23); Calcium 8.7 mg/dL (8.5-10.5); Carbon Dioxide 22 mmol/L (22-29); Chloride 98 mmol/L (98-107); Creatinine Clr Calc Pharmacy 60.6426; Globulin 2.3 g/dL (1.3-4.6); Glucose 104 mg/dL (65-115); NT Pro B Type Natriuretic Pept 4585 pg/mL (0-125); Osmolality Calculated 276 mOsm/kg (285-295); Potassium 3.7 mmol/L (3.5-5.1); Sodium 133 mmol/L (136-145); Total Bilirubin 0.4 mg/dL (0.15-1.2); Total Protein 5.9 g/dL (6.6-8.7)
[2023-11-14] MEDS: morphine 4 mg/mL SDV 1 mL IVP (19:17)
[2023-11-14] MEDS: hyDRALAzine 20 mg/mL INJ 1 mL IVP (19:20)
[2023-11-14] MEDS: enalaprilat 2.5 mg/2 mL SDV 1.25 MG IVP (19:23)
[2023-11-14] MEDS: FUROsemide 10 mg/mL SDV 10mL 60 MG IVP (19:26)
[2023-11-14] MEDS: metoclopramide 5 mg/mL SDV 2 mL 10 MG IVP (19:28)
[2023-11-14] MEDS: amlodipine 10 mg Tablet PO (19:32)
[2023-11-14 20:09] LABS: Add Urine Culture? No; Add Urine Microscopic? YES; Bacteria Urine TRACE /hpf; Bilirubin Urine Neg (Negative); Blood Urine Neg (Negative); Glucose Urine UA Norm (Normal); Ketones Urine Negative (Negative); Leukocyte Esterase Urine Negative (Negative); Nitrate Urine Negative (Negative); Protein Urine Trace (Negative); RBC Urine 0-4 /hpf (0-2); Specific Gravity, Urine 1.005 (1.005-1.030); Squamous Epithelial Cell Urine 0-4 /hpf (0-5); Urine Appearance Clear (CLEAR); Urine Color Yellow (Yellow); Urobilinogen Urine Norm (Negative); WBC Urine 0-4 /hpf (0-5); pH Urine 7 (5-7)
[2023-11-14 20:14] LABS: SARS Covid-2 Antigen negative (Negative)
--- NOTE | 2023-11-14 20:22 | W.ED.CHESTPA ---
HPI - Chest Pain General: Chief Complaint: Chest Pain Stated Complaint: BP High\Chest Pains Time Seen by Provider: 11/14/23 18:27 History of Present Illness: 67-year-old female here for the second time in 24 hours. She complains of headache, chest pressure, and shortness of breath. She had similar complaints last night. Her blood pressure was 240 systolic last night. It improved in the ER. Despite taking her medication today, blood pressures are still in the 200s range. She complains of continued headache. She complains of continued chest discomfort, and shortness of breath. She is now using some oxygen here. Related Data Home Medications Medication Instructions Recorded Confirmed ferrous sulfate 325 mg (65 mg 325 mg PO DAILY 06/21/23 11/04/23 iron) tablet atorvastatin 80 mg tablet 80 mg PO DAILY 10/23/23 11/04/23 nifedipine 60 mg tablet,extended 60 mg PO DAILY 10/23/23 11/04/23 release 24 hr quetiapine 100 mg tablet (Seroquel) 100 mg PO BEDTIME 10/23/23 11/04/23 tramadol 100 mg tablet 100 mg PO Q6H PRN Pain 10/23/23 11/04/23 trazodone 100 mg tablet 100 mg PO BEDTIME 10/23/23 11/04/23 warfarin 5 mg tablet 5 mg PO DAILY 10/23/23 11/04/23 Previous Rx's Medication Instructions Recorded famotidine 20 mg tablet (Pepcid) 20 mg PO BID #180 tabs 06/10/23 hydralazine 50 mg tablet 75 mg (1.5 x 50 mg) PO TID #90 tabs 08/04/23 levothyroxine 25 mcg tablet 50 mcg (2 x 25 mcg) PO DAILY #90 08/04/23 tabs lisinopril 40 mg tablet 40 mg PO DAILY #30 tabs 08/31/23 magnesium oxide 400 mg (241.3 mg 400 mg PO DAILY #30 tabs 08/31/23 magnesium) tablet loratadine 10 mg tablet (Claritin) 10 mg PO DAILY #30 tabs 09/09/23 left arm sling #1 ea 09/17/23 escitalopram oxalate 10 mg tablet 10 mg PO DAILY #60 tabs 10/07/23 warfarin 4 mg tablet 4 mg PO DAILY #90 tabs 08/07/24 fluticasone propionate 50 2 spray intranasal DAILY #16 grams 10/23/23 mcg/actuation nasal spray,suspension metoprolol tartrate 100 mg tablet 100 mg PO BID #60 tabs 10/23/23 hydrocodone 5 mg-acetaminophen 325 1 tab PO BID PRN pain 30 days #60 10/30/23 mg tablet tabs Allergies Allergy/AdvReac Type Severity Reaction Status Date / Time No Known Drug Allergies Allergy Unknown Verified 11/14/23 18:00 [facility] ED PFSH: Medical History Elevated d-dimer Elevated troponin Dyspnea Hypothyroidism Hyponatremia Atrial fibrillation with RVR Atrial fibrillation with RVR Dehydration Hyponatremia Altered mental status Subacromial impingement of left shoulder Rotator cuff tear, left Anemia Bipolar 2 disorder Anxiety Diabetes Hypercholesterolemia Syncope Urgency of urination Hypertension Surgical History Hx of section x 3 Hx of bilateral cataract extraction H/O gastric bypass Family History Grandmother Cancer Hyperlipidemia Hypertension Mother Hypertension CAD (coronary artery disease) unknown age of onset Denies family history of Diabetes Clotting disorder Dementia Chronic kidney disease (CKD) Suicide Anesthesia complication Bleeding disorder Lung disease Stroke Social History Smoking and tobacco/nicotine status: unknown if used tobacco/nicotine Alcohol intake: never Substance/Drug Use: never Marital status: Physical Exam Const: COMMON NORMALS: no acute distress GENERAL APPEARANCE: cooperative, ill appearing and frail appearing HENMT: COMMON NORMALS: normocephalic, atraumatic and Normal external nose present HEAD & SCALP: normocephalic and atraumatic FACE & SINUS: normal facial exam and face symmetric NOSE: Normal external nose present Eye: COMMON NORMALS: Equal, round and reactive pupils present and EOMs intact bilaterally PUPIL: Yes Equal, round and reactive pupils present Neck/C-Spine: GENERAL: Yes trachea midline Chest: CHEST: Yes Symmetrical chest wall rise Resp: EFFORT & INSPECTION: Yes symmetric chest movement and Yes tachypneic AUSCULTATION: diminished lung sounds Cardio: COMMON NORMALS: regular rate and regular rhythm RATE: regular rate RHYTHM: regular rhythm GI: COMMON NORMALS: Normal to inspection, nondistended, normoactive bowel sounds present Extremity: COMMON NORMALS: no pedal edema Neuro: JOCELYN COMA SCALE: document GCS findings Jocelyn coma scale eye opening: Spontaneous [place] coma scale verbal response: Orientated [place] coma scale motor response: Obey commands [place] coma scale total score: 15 SENSORY EXAM: Yes extremities (intact) Psych: COMMON NORMALS: speech normal SPEECH: Yes normal speech Skin: COMMON NORMALS: no rashes or lesions noted GENERAL SKIN EXAM: no rashes or lesions noted Course Vital Signs: Vital signs: Vital Signs Temperature 98.5 F 11/14/23 18:00 Pulse Rate 59 L 11/14/23 21:21 Respiratory Rate 21 H 11/14/23 20:25 Blood Pressure 160/71 11/14/23 21:21 Pulse Oximetry 96 11/14/23 21:21 MDM - Chest Pain Medical Decision Making Patient is now on oxygen. She is afebrile. Blood pressure remains high, but is much improved after IV hydralazine, oral amlodipine, and IV Vasotec. She is on 4 different antihypertensives at home. She remains hypertensive. She was given 60 mg of IV Lasix, and has begun to diurese. Her chest x-ray shows pulmonary edema. Head CT is still negative. She has no acute neurological findings. Her BNP is up to 4500. With elevation in BNP, use of oxygen, pulmonary edema on chest x-ray now, she will be admitted for pulmonary edema hypoxic respiratory failure, hypertensive emergency. Spoke with hospitalist. She will go to [facility]. Lab Data 11/14/23 18:20 11/14/23 18:20 Radiology Impressions Chest X-Ray 11/14/23 18:31 IMPRESSION: Mild coarsened interstitial markings may be chronic. Superimposed mild pulmonary edema or atypical infection difficult to exclude. Head CT 11/14/23 18:46 IMPRESSION: No acute intracranial findings. Laboratory Results WBC 6.80 10^3/uL (3.29-11.43) 11/14/23 18:20 RBC 3.38 10^6/uL (3.85-5.65) L 11/14/23 18:20 Hgb 10.10 g/dL (11.27-16.99) L 11/14/23 18:20 Hct 30.2 % (36-47) L 11/14/23 18:20 MCV 89.3 fl (85-98) 11/14/23 18:20 MCH 29.9 pg (27-33) 11/14/23 18:20 MCHC 33.4 g/dL (30-55) 11/14/23 18:20 RDW 13.9 % (12.1-15.1) 11/14/23 18:20 Plt Count 417 10^3/cmm (157-399) H 11/14/23 18:20 MPV 8.7 fL (7.4-10.4) 11/14/23 18:20 Neut % (Auto) 53.0 % 11/14/23 18:20 Lymph % (Auto) 32.8 % 11/14/23 18:20 [place] % (Auto) 11.9 % 11/14/23 18:20 Eos % (Auto) 1.8 % 11/14/23 18:20 Baso % (Auto) 0.4 % 11/14/23 18:20 Neut # (Auto) 3.60 10^3/uL (1.8-7.7) 11/14/23 18:20 Lymph # (Auto) 2.2 10^3/uL (0.8-4.8) 11/14/23 18:20 [place] # (Auto) 0.8 10^3/uL (0.2-0.9) 11/14/23 18:20 Eos # (Auto) 0.1 10^3/uL (0.0-0.8) 11/14/23 18:20 Baso # (Auto) 0.0 10^3/uL (0.0-0.1) 11/14/23 18:20 Nucleated RBC % (auto) 0 % 11/14/23 18:20 Nucleated RBCs # 0.0 /100WBC 11/14/23 18:20 PT 13.80 SECONDS (12.1-14.9) 11/14/23 18:20 INR 1.03 (0.8-1.2) 11/14/23 18:20 APTT 33.6 SECONDS (23.9-36.7) 11/14/23 18:20 Sodium 133 mmol/L (136-145) L 11/14/23 18:20 Potassium 3.7 mmol/L (3.5-5.1) 11/14/23 18:20 Chloride 98 mmol/L (98-107) 11/14/23 18:20 Carbon Dioxide 22 mmol/L (22-29) 11/14/23 18:20 Anion Gap 16.7 (5-19) 11/14/23 18:20 BUN 13 mg/dL (8-23) 11/14/23 18:20 Creatinine 0.6 mg/dL (0.5-0.9) 11/14/23 18:20 GFR Calculation 100.0 mL/min (90-130) 11/14/23 18:20 Glucose 104 mg/dL (65-115) 11/14/23 18:20 Calculated Osmolality 276 mOsm/kg (285-295) L 11/14/23 18:20 Calcium 8.7 mg/dL (8.5-10.5) 11/14/23 18:20 Total Bilirubin 0.4 mg/dL (0.15-1.2) 11/14/23 18:20 AST 12 U/L (0-32) 11/14/23 18:20 ALT 7 U/L (0-33) 11/14/23 18:20 Alkaline Phosphatase 47 U/L (35-105) 11/14/23 18:20 Troponin T Baseline 14 ng/L (0-10) H 11/14/23 18:20 NT-Pro-B Natriuret Pep 4585 pg/mL (0-125) H 11/14/23 18:20 Total Protein 5.9 g/dL (6.6-8.7) L 11/14/23 18:20 Albumin 3.6 g/dL (3.5-5.2) 11/14/23 18:20 Globulin 2.3 g/dL (1.3-4.6) 11/14/23 18:20 Urine Color Yellow (Yellow) 11/14/23 19:37 Urine Appearance Clear (CLEAR) 11/14/23 19:37 Urine pH 7 (5-7) 11/14/23 19:37 Ur Specific [place] 1.005 (1.005-1.030) 11/14/23 19:37 Urine Protein Trace (Negative) 11/14/23 19:37 Urine Glucose (UA) Norm (Normal) 11/14/23 19:37 Urine Ketones Negative (Negative) 11/14/23 19:37 Urine Blood Neg (Negative) 11/14/23 19:37 Urine Nitrate Negative (Negative) 11/14/23 19:37 Urine Bilirubin Neg (Negative) 11/14/23 19:37 Urine Urobilinogen Norm mg/dL (Negative) 11/14/23 19:37 Ur Leukocyte Esterase Negative (Negative) 11/14/23 19:37 Urine RBC 0-4 /hpf (0-2) H 11/14/23 19:37 Urine WBC 0-4 /hpf (0-5) H 11/14/23 19:37 Ur Squamous Epith Cells 0-4 /hpf (0-5) H 11/14/23 19:37 Amorphous Sediment Not Reportable 11/14/23 19:37 Urine Bacteria Trace /hpf (NONE) 11/14/23 19:37 SARS-CoV-2 Ag (Rapid) negative (Negative) 11/14/23 19:37 All radiology interpretation(s) finalized by discharge Discharge Plan Discharge Patient Disposition: Admitted As Inpatient Admit Provider: Shawn Campos Clinical Impression: Hypertensive urgency, Chest pain Condition: Stable Coding Level of Care Code ED [employer] Program Manager for Mayela Jacobsen
--- NOTE | 2023-11-14 20:59 | ECG_ITS ---
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 Measurements Intervals [place] Rate: 60 P: 30 NV: 149 QRS: 31 QRSD: 86 T: 26 QT: 447 QTc: 447 Interpretive Statements SINUS RHYTHM POSSIBLE ANTERIOR MYOCARDIAL INFARCTION , PROBABLY OLD [30 ms Q WAVE IN V3/V4, OR R < 0.2 mV IN V4] Compared to ECG 11/14/2023 18:03:49 Myocardial infarct finding now present Electronically Signed On 11-15-2023 9:22:13 CDT by Sam Robertson M.D. [id number]
--- NOTE | 2023-11-14 21:07 | P.HP_ITS ---
Providers/Chief Complaint 2 Admitting Physician: Shawn Campos MD Primary Care Provider: Obey Rose MD Chief Complaint: BP High\Chest Pains History of Present Illness Trish Rocha is a 67 year old female with a past medical history of hypertension, hyperlipidemia, atrial fibrillation on Coumadin, who presents [facility] due to shortness of breath, headache, chest pain. Currently patient is alert oriented x 3, following all commands, heart rates in the 60s, looks like sinus bradycardia, she is sitting up to the side of the bed, her major complaint is headache, she is on 2 L, last blood pressure is 167/76, respiratory rate 20. She tells me that she continues to have elevated blood pressures, up to 240, she has had intermittent headache, no blurry vision, no nausea, no vomiting, no facial droop no slurring of words, no focal weakness does report chest pressure, nonradiating, does report shortness of breath, he is requiring 2 L Review of Systems 2 Const: Denies: fever(s) Card: Reports: chest pain Resp: Reports: dyspnea GI: Denies: abdominal pain Medications/Allergies Home Medications Medication Instructions Recorded Confirmed Last Taken Type famotidine 20 mg tablet (Pepcid) 20 mg PO BID #180 tabs 06/10/23 11/04/23 10/22/23 Rx ferrous sulfate 325 mg (65 mg 325 mg PO DAILY 06/21/23 11/04/23 10/22/23 History iron) tablet hydralazine 50 mg tablet 75 mg (1.5 x 50 mg) PO TID #90 tabs 08/04/23 11/04/23 10/22/23 Rx levothyroxine 25 mcg tablet 50 mcg (2 x 25 mcg) PO DAILY #90 08/04/23 11/04/23 10/22/23 Rx tabs lisinopril 40 mg tablet 40 mg PO DAILY #30 tabs 08/31/23 11/04/23 10/22/23 Rx magnesium oxide 400 mg (241.3 mg 400 mg PO DAILY #30 tabs 08/31/23 11/04/23 10/22/23 Rx magnesium) tablet loratadine 10 mg tablet (Claritin) 10 mg PO DAILY #30 tabs 09/09/23 11/04/23 10/22/23 Rx left arm sling #1 ea 09/17/23 11/04/23 Unknown Rx escitalopram oxalate 10 mg tablet 10 mg PO DAILY #60 tabs 10/07/23 11/04/23 10/22/23 Rx warfarin 4 mg tablet 4 mg PO DAILY #90 tabs 10/07/23 11/04/23 10/22/23 Rx atorvastatin 80 mg tablet 80 mg PO DAILY 10/23/23 11/04/23 10/22/23 History fluticasone propionate 50 2 spray intranasal DAILY #16 grams 10/23/23 11/04/23 Unknown Rx mcg/actuation nasal spray,suspension metoprolol tartrate 100 mg tablet 100 mg PO BID #60 tabs 10/23/23 11/04/23 Unknown Rx nifedipine 60 mg tablet,extended 60 mg PO DAILY 10/23/23 11/04/23 10/22/23 History release 24 hr quetiapine 100 mg tablet (Seroquel) 100 mg PO BEDTIME 10/23/23 11/04/23 10/21/23 History tramadol 100 mg tablet 100 mg PO Q6H PRN Pain 10/23/23 11/04/23 Unknown History trazodone 100 mg tablet 100 mg PO BEDTIME 10/23/23 11/04/23 10/21/23 History warfarin 5 mg tablet 5 mg PO DAILY 10/23/23 11/04/23 Unknown History hydrocodone 5 mg-acetaminophen 325 1 tab PO BID PRN pain 30 days #60 10/30/23 11/04/23 Unknown Rx mg tablet tabs Allergies Allergy/AdvReac Type Severity Reaction Status Date / Time No Known Drug Allergies Allergy Unknown Verified 11/14/23 18:00 PFSH Acute 2 PFSH: Medical History Elevated d-dimer Elevated troponin Dyspnea Hypothyroidism Hyponatremia Atrial fibrillation with RVR Atrial fibrillation with RVR Dehydration Hyponatremia Altered mental status Subacromial impingement of left shoulder Rotator cuff tear, left Anemia Bipolar 2 disorder Anxiety Diabetes Hypercholesterolemia Syncope Urgency of urination Hypertension Surgical History Hx of section x 3 Hx of bilateral cataract extraction H/O gastric bypass Family History Grandmother Cancer Hyperlipidemia Hypertension Mother Hypertension CAD (coronary artery disease) unknown age of onset Denies family history of Diabetes Clotting disorder Dementia Chronic kidney disease (CKD) Suicide Anesthesia complication Bleeding disorder Lung disease Stroke Social History Smoking and tobacco/nicotine status: unknown if used tobacco/nicotine Alcohol intake: never Substance/Drug Use: never Marital status: Vitals/I&O/Wt Last Vital Signs Temp 98.5 F 11/14/23 18:00 Pulse 62 11/14/23 20:25 Resp 21 H 11/14/23 20:25 BP 172/69 11/14/23 20:25 Pulse Ox 97 11/14/23 20:25 Weight last 48 hrs Weight 67.132 kg Physical Exam 2 Const: COMMON NORMALS: no acute distress and patient oriented x3 HENMT: COMMON NORMALS: normocephalic HEAD & SCALP: normocephalic Eye: COMMON NORMALS: Equal, round and reactive pupils present Neck/C-Spine: COMMON NORMALS: no JVD Resp: COMMON NORMALS: normal respiratory effort, No retractions, No use of accessory muscles and clear to auscultation bilaterally AUSCULTATION: clear to auscultation bilaterally Cardio: COMMON NORMALS: regular rate, regular rhythm, S1 normal heart sound present and S2 normal heart sound present RATE: regular rate RHYTHM: r egular rhythm HEART SOUNDS: S1 normal heart sound present and S2 normal heart sound present GI: COMMON NORMALS: Normal to inspection, nondistended, normoactive bowel sounds present, Soft to palpation and non-tender PALPATION: Yes Soft to palpation and Yes No hepatosplenomegaly present Extremity: COMMON NORMALS: capillary refill normal, no clubbing, cyanosis or edema, no calf tenderness and no pedal edema Neuro: COMMON NORMALS: patient oriented x3, CN's II-XII intact bilaterally and moves all extremities Psych: COMMON NORMALS: mental status grossly normal Data 11/14/23 18:20 11/14/23 18:20 A&P Assessment and plan (1) Hypertensive urgency: (2) Shortness of breath: (3) Chest pain: Plan Hypertensive urgency ? Continue home blood pressure medications ? Will consider Cardene drip based on clinical progress Shortness of breath with hypoxia requiring 2 L, elevated BNP, concerning for CHF exacerbation ? Received Lasix in the emergency room ? Cardiac echo ? Lasix 40 mg IV every 24 hours Chest pain ? Aspirin, statin ? Serial EKGs, serial troponins, telemetry monitoring Atrial fibrillation, INR subtherapeutic, at 1, consult pharmacy for Coumadin management, there is a question about her home Coumadin dosing, will resume 5 mg for now, will have to reach out to the pharmacy to get her actual dosing Headache ? Head CT within normal limits ? Continue IV medications Full code Coumadin for DVT prophylaxis Attestations 2 Medical Necessity Statement*: Patient requires hospitalization, inpatient, greater than 2 midnights for hypertensive urgency, shortness of breath concerning for CHF exacerbation, chest pain Diagnoses Hypertensive urgency I16.0 Shortness of breath R06.02 Chest pain R07.9
[2023-11-14 21:08] LABS: Troponin 5 2HR 14.28 ng/L (0-10); Troponin 5 2HR Delta 0.28 ABS# (0-10)
[2023-11-14 21:45] LABS: Estmated Average Glucose 105; Hemoglobin A1C 5.3 % (4.0-6.0)
[2023-11-14 21:53] LABS: Chol HDL Ratio 4.97 mg/dL (0.0-4.40); Cholesterol 189 mg/dL (0-200); HDL Cholesterol 38 mg/dL (60-100); LDL Cholesterol Calculated 132 mg/dL (50-129); LDL HDL Ratio 3.47 RATIO (0.00-3.22); Thyroid Stimulating Hormone 4.08 uIU/mL (0.27-4.20); Triglycerides 95 mg/dL (0-150)
[2023-11-14] MEDS: hyDRALAzine 50 mg Tablet 75 MG PO (22:00)
[2023-11-14] MEDS: aspirin 81 mg EC Tablet PO (22:00)
[2023-11-14] MEDS: trazodone 100 mg Tablet PO (22:00)
[2023-11-14] MEDS: quetiapine 100 mg Tablet PO (22:01)
[2023-11-14] MEDS: metoprolol tartrate 50 mg Tablet 100 MG PO (22:01)
[2023-11-14] MEDS: pantoprazole 40 mg SDV IVP (22:02)
--- NOTE | 2023-11-14 23:05 | PC.NURSE ---
Patient with left arm/ shoulder immobilized in sling due to dislocation and planned surgery 12/07
[2023-11-15] VITALS (23 sets, daily range): BP systolic 99–153; BP diastolic 41–105; PULSE 49–98; RESP 12–26; TEMP 36.3–37; O2SAT 90–98
--- NOTE | 2023-11-15 00:31 | ECG_ITS ---
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 Measurements Intervals [place] Rate: 55 P: 56 DE: 158 QRS: 76 QRSD: 89 T: 47 QT: 496 QTc: 475 Interpretive Statements SINUS BRADYCARDIA PROLONGED QT INTERVAL Compared to ECG 11/14/2023 20:59:58 Prolonged QT interval now present Sinus rhythm no longer present Myocardial infarct finding no longer present Electronically Signed On 11-15-2023 9:20:40 CDT by Sam Robertson M.D. [id number]
[2023-11-15 02:43] LABS: Troponin 5 6HR 13.55 ng/L (0-10)
[2023-11-15 02:46] LABS: Troponin 5 6HR Delta -0.45 ng/L (0-12)
[2023-11-15] MEDS: HYDROcodone-acetaminophen 5-325 mg Tablet 1 TAB PO ×3 (03:06→19:30)
[2023-11-15 05:37] LABS: Basophils % 0.3 %; Eosinophils # 0.1 10^3/uL (0.0-0.8); Eosinophils % 1.7 %; Hematocrit 28.8 % (36-47); Lymphocytes # 2.1 10^3/uL (0.8-4.8); Lymphocytes % 29.4 %; Mean Corpuscular HGB Conc 32.3 g/dL (30-55); Mean Corpuscular Hemoglobin 29.6 pg (27-33); Mean Corpuscular Volume 91.7 fl (85-98); Mean Platelet Volume 8.6 fL (7.4-10.4); Monocytes # 0.9 10^3/uL (0.2-0.9); Monocytes % 13.1 %; Neutrophils # 3.86 10^3/uL (1.8-7.7); Neutrophils % 55.1 %; Nucleated Red Blood Cells % 0 %; Platelet Count 375 10^3/cmm (157-399); Red Blood Count 3.14 10^6/uL (3.85-5.65); Red Cell Distribution Width 14.1 % (12.1-15.1); White Blood Count 7.01 10^3/uL (3.29-11.43)
[2023-11-15] MEDS: levothyroxine 25 mcg Tablet 50 MCG PO (05:48)
[2023-11-15] MEDS: FUROsemide 10 mg/mL SDV 4mL 40 MG IVP (05:48)
[2023-11-15 05:51] LABS: INR 1.06 (0.8-1.2)
[2023-11-15 06:00] LABS: Anion Gap 14.5 (5-19); Blood Urea Nitrogen 13 mg/dL (8-23); Calcium 8.4 mg/dL (8.5-10.5); Carbon Dioxide 26 mmol/L (22-29); Chloride 102 mmol/L (98-107); Creatinine Clr Calc Pharmacy 63.1935; Glucose 104 mg/dL (65-115); Osmolality Calculated 288 mOsm/kg (285-295); Potassium 3.5 mmol/L (3.5-5.1); Sodium 139 mmol/L (136-145)
[2023-11-15 06:10] LABS: NT Pro B Type Natriuretic Pept 6396 pg/mL (0-125)
[2023-11-15] MEDS: acetaminophen 325 mg Tablet 650 MG PO ×3 (08:15→20:56)
[2023-11-15] MEDS: atorvastatin 40 mg Tablet 80 MG PO (09:41)
[2023-11-15] MEDS: aspirin 81 mg EC Tablet PO (09:42)
[2023-11-15] MEDS: escitalopram 10 mg Tablet PO (09:42)
[2023-11-15] MEDS: sodium chloride 0.9% 500 ML 300 ML IV (10:26)
[2023-11-15] MEDS: NIFEdipine ER (24 hr) 30 mg Tablet 60 MG PO (11:04)
[2023-11-15] MEDS: hyDRALAzine 50 mg Tablet 75 MG PO ×2 (12:49→21:38)
--- NOTE | 2023-11-15 13:25 | P.PN_ITS ---
Subjective 2 Subjective: Seen this morning. Urine output 2200 overnight. Appears slightly dehydrated this morning. Also felt slightly dizzy when she got up from laying down position. Blood pressure soft 106/47 this morning. Have ordered normal saline 500 cc bolus. Sitting up in recliner appearing comfortable at this time. Vitals/I&O/Wt Last Vital Signs Temp 97.4 F L 11/15/23 12:00 Pulse 56 L 11/15/23 12:00 Resp 14 11/15/23 12:00 BP 146/105 11/15/23 12:00 Pulse Ox 98 11/15/23 12:00 O2 Del Method Room Air 11/15/23 07:53 O2 Flow Rate 2 11/15/23 03:00 11/14/23 11/15/23 11/15/23 22:59 06:59 14:59 Intake Total 100 / 100 950 / 950 Output Total 450 / 450 900 / 1350 1350 / 1350 Balance -350 / -350 -900 / -1250 -400 / -400 Weight last 48 hrs Weight 72.972 kg Weight 73.5 kg Weight 67.132 kg Physical Exam 2 Const: COMMON NORMALS: no acute distress and patient oriented x3 HENMT: COMMON NORMALS: normocephalic HEAD & SCALP: normocephalic Eye: COMMON NORMALS: Equal, round and reactive pupils present PUPIL: Yes Equal, round and reactive pupils present Neck/C-Spine: COMMON NORMALS: no JVD Resp: COMMON NORMALS: normal respiratory effort, No retractions, No use of accessory muscles and clear to auscultation bilaterally AUSCULTATION: clear to auscultation bilaterally Cardio: COMMON NORMALS: no JVD, regular rate, regular rhythm, S1 normal heart sound present and S2 normal heart sound present RATE: regular rate RHYTHM: regular rhythm HEART SOUNDS: S1 normal heart sound present and S2 normal heart sound present GI: COMMON NORMALS: Normal to inspection, nondistended, normoactive bowel sounds present, Soft to palpation, non-tender and No hepatosplenomegaly present PALPATION: Yes Soft to palpation and Yes No hepatosplenomegaly present Extremity: COMMON NORMALS: capillary refill normal, no clubbing, cyanosis or edema, no calf tenderness and no pedal edema Neuro: COMMON NORMALS: patient oriented x3, CN's II-XII intact bilaterally and moves all extremities Psych: COMMON NORMALS: mental status grossly normal Urinary Catheter Management: Gould: Cath Placed During This Visit: yes Reason for Continuing Indwelling Catheter: Other Urinary Catheter Date of Insertion: 11/14/23 Urinary Catheter Time of Insertion: 21:45 Data 11/15/23 05:21 11/15/23 05:21 A&P Assessment and plan (1) Hypertensive urgency: (2) Shortness of breath: (3) Chest pain: Plan Hypertensive urgency ? Continue home blood pressure medications ? Will consider Cardene drip based on clinical progress Shortness of breath with hypoxia requiring 2 L, elevated BNP, concerning for CHF exacerbation ? Received Lasix in the emergency room ? Cardiac echo ? Lasix 40 mg IV every 24 hours Chest pain ? Aspirin, statin ? Serial EKGs, serial troponins, telemetry monitoring Atrial fibrillation, INR subtherapeutic, at 1, consult pharmacy for Coumadin management, there is a question about her home Coumadin dosing, will resume 5 mg for now, will have to reach out to the pharmacy to get her actual dosing Headache ? Head CT within normal limits ? Continue IV medications Full code Coumadin for DVT prophylaxis 11/14 Patient has not required Cardene drip. Will hold off on morning antihypertensives as blood pressure is slightly soft at 104/47. Will order 500 cc normal saline bolus and gradually reintroduce oral medications. Echo pending at this time Denies any chest pain shortness of breath. Feels well. Continue to monitor in ICU today. Blood pressure stays stable for 24-hour. May consider discharge home. Attestations 2 Medical Necessity Statement*: Continue to monitor in ICU for hypertensive urgency. Diagnoses Hypertensive urgency I16.0 Shortness of breath R06.02 Chest pain R07.9
[2023-11-15] MEDS: warfarin 5 mg Tablet PO (14:30)
--- NOTE | 2023-11-15 14:33 | PC.NURSE ---
0930 Since blood pressure is on the lower side, holding the blood pressure meds, 500ml bolus ordered, then will give po blood pressure meds gradually throughout the day as blood pressure allows.
--- NOTE | 2023-11-15 14:40 | PC.NURSE ---
1400 Continuing to hold some blood pressure meds due to low blood pressure.
--- NOTE | 2023-11-15 18:03 | PC.NURSE ---
1814 Transfer patient via wheelchair to [facility] with all belongings along with purse and clothes. Patient awake and alert, still has a headache, but waiting until 1906 for next available Hydocodone med. Patient greeted by nurse administrative support assistant and nurse Latha at beside.
--- NOTE | 2023-11-15 18:26 | PC.NURSE ---
Patient received from ICU via wheelchair. Patient c/o persistent headache. Informed patient time of next pain medication. Patient verbalized complete understanding. Patient denies other needs. Watching tv presently.
[2023-11-15] MEDS: TRAMadol 50 mg Tablet 100 MG PO (20:10)
--- NOTE | 2023-11-15 21:03 | USCV_ITS ---
Trish Rocha Age: 67 Gender: F : 1955 Exam Date: 11/15/2023 11:10 Ordering Phys: Shawn Campos MD Technologist: Rodriguez Brian Exam Location: [facility] [place] Indication: sob BP: 140 / 51 HR: Rhythm: Sinus Technical Quality: Adequate MEASUREMENTS (Male / Female) Normal Values 2D ECHO LV Diastolic Diameter PLAX 4.8 cm 4.2 - 5.9 / 3.9 - 5.3 cm IVS Diastolic Thickness 1.2 cm 0.6 - 1.0 / 0.6 - 0.9 cm IVS Systolic Thickness 1.6 cm LVPW Diastolic Thickness 1.3 cm 0.6 - 1.0 / 0.6 - 0.9 cm LVPW Systolic Thickness 2.5 cm LVOT Diameter 2.0 cm LV Ejection Fraction 2D Teich 82.6 % LV Ejection Fraction MOD 4C 81.7 % LV Ejection Fraction MOD 2C 72.4 % LV Ejection Fraction 2C AL 70.7 % LA Diameter 3.5 cm RA Systolic Volume 4C AL 34.8 ml RA Systolic Volume 4C MOD 35.3 ml LA Sys Volume AL 68.9 cm cubed LA Sys Volume Index AL 38.4 cm cubed/m squared Aorta at Sinotubular Diameter 1.8 cm IVC Diameter 2.0 cm M-MODE LA Ao Ratio MM 1.4 AV Cusp Separation MM 1.4 cm FINDINGS Left Ventricle Right Ventricle Right Atrium Left Atrium Mitral Valve Aortic Valve Tricuspid Valve Pulmonic Valve Pericardium Aorta IVC CONCLUSIONS Limited echocardiogram performed to assess LV systolic function. LV systolic function is normal with EF of 60 to 65%. No regional wall motion abnormalities are seen. Sam Robertson MD (Electronically Signed) Final Date: 15 November 2023 12:06 S
[2023-11-15] MEDS: ketorolac 30 mg/mL INJ 15 MG IVP (21:26)
[2023-11-15] MEDS: pantoprazole 40 mg SDV IVP (21:26)
[2023-11-15] MEDS: prochlorperazine 10 mg/2 mL Inj IVP (21:27)
[2023-11-15] MEDS: metoprolol tartrate 50 mg Tablet 100 MG PO (21:37)
[2023-11-15] MEDS: quetiapine 100 mg Tablet PO (21:38)
[2023-11-15] MEDS: trazodone 100 mg Tablet PO (21:38)
[2023-11-16] VITALS (8 sets, daily range): BP systolic 132–166; BP diastolic 63–81; PULSE 55–78; RESP 15–23; TEMP 36.8–36.9; O2SAT 88–95
[2023-11-16 03:47] LABS: Basophils % 0.3 %; Eosinophils # 0.2 10^3/uL (0.0-0.8); Eosinophils % 2.8 %; Hematocrit 28.9 % (36-47); Lymphocytes # 2.3 10^3/uL (0.8-4.8); Lymphocytes % 34.7 %; Mean Corpuscular HGB Conc 32.2 g/dL (30-55); Mean Corpuscular Hemoglobin 29.3 pg (27-33); Mean Corpuscular Volume 91.2 fl (85-98); Mean Platelet Volume 8.9 fL (7.4-10.4); Monocytes % 15.2 %; Neutrophils # 3.04 10^3/uL (1.8-7.7); Neutrophils % 46.5 %; Nucleated Red Blood Cells % 0 %; Platelet Count 389 10^3/cmm (157-399); Red Blood Count 3.17 10^6/uL (3.85-5.65); Red Cell Distribution Width 13.9 % (12.1-15.1); White Blood Count 6.52 10^3/uL (3.29-11.43)
[2023-11-16 04:18] LABS: Anion Gap 12.1 (5-19); Blood Urea Nitrogen 14 mg/dL (8-23); Calcium 8.7 mg/dL (8.5-10.5); Carbon Dioxide 28 mmol/L (22-29); Chloride 98 mmol/L (98-107); Creatinine Clr Calc Pharmacy 63.1935; Glucose 93 mg/dL (65-115); Osmolality Calculated 280 mOsm/kg (285-295); Potassium 3.1 mmol/L (3.5-5.1); Sodium 135 mmol/L (136-145)
[2023-11-16] MEDS: levothyroxine 25 mcg Tablet 50 MCG PO (05:34)
[2023-11-16] MEDS: HYDROcodone-acetaminophen 5-325 mg Tablet 1 TAB PO ×3 (07:10→23:47)
--- NOTE | 2023-11-16 09:23 | MR_ITS ---
WS: [id number] MRI HEAD WITH CONTRAST TECHNIQUE: Sagittal T1, T2 axial, T2 axial FLAIR, axial susceptibility weighted imaging, axial diffus ion weighted images, and coronal T2 images were obtained. Pre and post-T1 axial and post T1 coronal i mages. ADC and FSPGR images. CLINICAL INFORMATION: Persistent headache COMPARISON: CT head 11/14/2023 FINDINGS: No evidence of restricted diffusion to suggest acute ischemia. Ventricular system and basal cisterns are patent. Mild small vessel changes. Mild parenchymal volume loss. Chronic infarcts in the cerebell um. Normal vascular flow voids at the skull base. No extra-axial fluid collections. No evidence of ma ss or mass effect. Paranasal sinuses are well aerated. Small retention cyst LEFT maxillary sinus. Normal posterior nasopharynx. Mastoid air cells are well a erated. No hemosiderin on the susceptibly weighted images. Normal optic chiasm and pituitary infundib ulum. Temporal lobes and hippocampal formations are normal in appearance. No abnormal gadolinium enha ncement. Normal dural venous sinuses. MR/MR head wo/w con [id number] IMPRESSION: 1. No evidence of restricted diffusion to suggest acute ischemia. 2. Mild small vessel changes with mild parenchymal volume loss. 3. 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 Chronic lac unar infarct RIGHT cerebellum. 4. No hemosiderin. 5. No abnormal gadolinium enhancement.
[2023-11-16] MEDS: lisinopril 20 mg Tablet 40 MG PO (09:34)
[2023-11-16] MEDS: potassium chloride ER 20 mEq Tablet 80 MEQ PO (09:34)
[2023-11-16] MEDS: atorvastatin 40 mg Tablet 80 MG PO (09:34)
[2023-11-16] MEDS: aspirin 81 mg EC Tablet PO (09:35)
[2023-11-16] MEDS: hyDRALAzine 50 mg Tablet 75 MG PO ×3 (09:35→21:54)
[2023-11-16] MEDS: hydroCHLOROthiazide 25 mg Tablet PO (09:35)
[2023-11-16] MEDS: TRAMadol 50 mg Tablet PO ×2 (09:35→21:54)
[2023-11-16] MEDS: NIFEdipine ER (24 hr) 30 mg Tablet 60 MG PO (09:36)
[2023-11-16] MEDS: metoprolol tartrate 50 mg Tablet 100 MG PO ×2 (10:05→21:54)
[2023-11-16] MEDS: escitalopram 10 mg Tablet PO (10:06)
--- NOTE | 2023-11-16 10:26 | PC.CHAP ---
Pastoral Care Encounter/Spiritual Assessment Type of Contact [] Declined scalp treatment specialist visit [] Patient/Family/Request visit [] Outpatient visit [] Follow-up visit [] Physician referral [] Code/Alert [x] Routine visit [] Staff referral [] Actively dying [] Patient sleeping [] Family support [] [] Out of room [] Palliative care [] [] Receiving care in room [] Pre-surgical visit [] Trauma [] Long length of stay [] ICU visit [] Other: Relational/Emotional Strength [] Patient feels connected with others/family/visitors/staff [] Distress [] Loneliness/isolation [] Abandonment Spirituality of Patient [x] Person of Brit [] Attends Yazdanism of their Brit [x] Believes in Prayer [] Reads Bible or Sabianist materials [] There are Spiritual issues to be addressed Slubber Runner Interventions [x] Prayer [x] Active listening [] Non-anxious presence [] Spiritual/emotional support [] Crisis/trauma care [] Spiritual counseling [] Bereavement support [] Provided bereavement packet [x] Provided Bible/devotional materials [] Provided toy/stuffed animal, coloring book to patient or family member [] Provided Communion [] Anointing/[place] [] Salvation [x] Completed spiritual assessment [] Other: Impact on Illness or Injury [] Angry [] Fearful [] Anxious [] Often cries [] Exhaustion [] Unable to work [] Unable to attend zoroastrian [] Unable to walk/stand [] Unable to read [] Unable to drive [] Unable to eat/drink [] Unable to sleep [] Unable to be with family [] Patient intubated [] Other: Summary Time spent with patient 5 min
[2023-11-16] MEDS: acetaminophen 325 mg Tablet 650 MG PO (11:47)
--- NOTE | 2023-11-16 12:41 | PC.SOCIAL ---
IMM Update pg 2 of IMM updated and reviewed w/ patient. Copy provided and copy dated, initialed and placed in chart.
[2023-11-16 12:57] LABS: INR 1.03 (0.8-1.2)
--- NOTE | 2023-11-16 13:13 | PC.PHAR ---
Pt verified medications, some of her recollection was questionable. Verified with pharmacy-[facility]. Pt is in the process of transfering from [facility].
--- NOTE | 2023-11-16 14:17 | P.PN_ITS ---
Subjective 2 Subjective: Hospital course, labs appreciated. Examination seen in CSU. Patient laying comfortably in bed. Complaining of persistent headache. States headache is improved than admission but continues to have on and off. Headache is more so all over the head but most in bitemporal region. Denies any nausea vomiting, headache, photophobia, neck pain. Vitals/I&O/Wt Last Vital Signs Temp 98.4 F 11/16/23 11:26 Pulse 62 11/16/23 12:00 Resp 16 11/16/23 12:00 BP 132/63 11/16/23 12:00 Pulse Ox 93 11/16/23 12:00 O2 Del Method Room Air 11/16/23 12:00 O2 Flow Rate 2 11/15/23 14:10 11/15/23 11/16/23 11/16/23 22:59 06:59 14:59 Intake Total 1090 / 2040 240 / 240 Output Total 300 / 1650 Balance 790 / 390 240 / 240 Weight last 48 hrs Weight 72 kg Weight 72.972 kg Weight 73.5 kg Weight 67.132 kg Physical Exam 2 Const: COMMON NORMALS: no acute distress and patient oriented x3 HENMT: COMMON NORMALS: normocephalic HEAD & SCALP: normocephalic Eye: COMMON NORMALS: Equal, round and reactive pupils present PUPIL: Yes Equal, round and reactive pupils present Neck/C-Spine: COMMON NORMALS: no JVD Resp: COMMON NORMALS: normal respiratory effort, No retractions, No use of accessory muscles and clear to auscultation bilaterally AUSCULTATION: clear to auscultation bilaterally Cardio: COMMON NORMALS: no JVD, regular rate, regular rhythm, S1 normal heart sound present and S2 normal heart sound present RATE: regular rate RHYTHM: regular rhythm HEART SOUNDS: S1 normal heart sound present and S2 normal heart sound present GI: COMMON NORMALS: Normal to inspection, nondistended, normoactive bowel sounds present, Soft to palpation, non-tender and No hepatosplenomegaly present PALPATION: Yes Soft to palpation and Yes No hepatosplenomegaly present Extremity: COMMON NORMALS: capillary refill normal, no clubbing, cyanosis or edema, no calf tenderness and no pedal edema Neuro: COMMON NORMALS: patient oriented x3, CN's II-XII intact bilaterally and moves all extremities Psych: COMMON NORMALS: mental status grossly normal Urinary Catheter Management: Gould: Cath Placed During This Visit: yes, but has since been removed by the nurse Reason for Continuing Indwelling Catheter: Decision to DC Catheter Urinary Catheter Date of Insertion: 11/14/23 Urinary Catheter Time of Insertion: 21:45 Date Urinary Catheter Removed: 11/15/23 Time Urinary Catheter Discontinued: 19:30 Data 11/16/23 02:33 11/16/23 02:33 A&P Assessment and plan (1) Hypertensive urgency: (2) Shortness of breath: (3) Chest pain: (4) Atrial fibrillation: (5) On Coumadin for atrial fibrillation: (6) Subtherapeutic anticoagulation: (7) Diastolic heart failure: (8) Severe pulmonary hypertension: (9) Persistent headaches: Plan Hypertensive urgency: Associated with shortness of breath, chest pain and headache. Blood pressure better controlled. Goal blood pressure less than 140/90 mmHg. Echocardiogram done in October 2023 showed an EF of 65%, grade 2 diastolic dysfunction, severe pulmonary hypertension with mean arterial pressure of 60 mmHg. Continue with home dose of hydralazine 75 mg 3 times daily, lisinopril 40 mg daily, metoprolol 100 mg twice daily, nifedipine 60 mg oral daily. Add hydrochlorothiazide 25 mg oral daily. Shortness of breath: Most likely in setting of hypertensive urgency. Resolved now. Patient is on room air. Echocardiogram as above. Atrial fibrillation: Rate controlled. Continue with home dose of metoprolol. Takes warfarin at home. Subtherapeutic INR: Goal INR of 2-3. Not on bridging with Lovenox because of admission with hypertensive urgency giving her at high risk of hemorrhage. Currently on Coumadin 5 mg oral daily. Patient states she takes 6 mg Coumadin at home. Will increase to 7 mg which will be 10% increase from her weekly consumption of 42 mg. If Blood pressures remain stable can add full dose Lovenox. Persistent headache: CT head on admission negative. Could be in setting of hypertensive urgency. For now we will check MRI of the head given persistent nature of headache even though blood pressures are better now. Cannot rule out migraine the patient does not give any history of migraine in the past. Tramadol as needed. Hypokalemia: Replace with 80 mg oral potassium. Repeat again in AM. Full code Coumadin for DVT prophylaxis Cardiac diet Protonix for PUD prophylaxis Attestations 2 Medical Necessity Statement*: Requires further hospitalization for further management of hypertensive urgency as antihypertensives were adjusted, atrial fibrillation with Coumadin on subtherapeutic INR, persistent headache Diagnoses Hypertensive urgency I16.0 Shortness of breath R06.02 Chest pain R07.9 Atrial fibrillation I48.91 On Coumadin for atrial fibrillation I48.91; Z79.01 Subtherapeutic anticoagulation Z51.81; Z79.01 Diastolic heart failure I50.30 Severe pulmonary hypertension I27.20 Persistent headaches R51.9
[2023-11-16] MEDS: warfarin 2 mg Tablet 7 MG PO (14:46)
[2023-11-16] MEDS: gadobenate dimeglumine 20 mL vial 16 ML IV (17:33)
[2023-11-16] MEDS: quetiapine 100 mg Tablet PO (21:54)
[2023-11-16] MEDS: trazodone 100 mg Tablet PO (21:54)
[2023-11-16] MEDS: pantoprazole 40 mg SDV IVP (21:58)
[2023-11-17] VITALS: BP 126/54; PULSE 54; RESP 20; TEMP 36.7; O2SAT 95
--- NOTE | 2023-11-17 00:43 | PC.NURSE ---
Pt complaining of pain even after pain meds. Called physician explained and got new orders for pain meds.
[2023-11-17] MEDS: HYDROcodone-acetaminophen 5-325 mg Tablet 1 TAB PO (00:54)
[2023-11-17 04:00] VITALS: BP 122/57; PULSE 57; RESP 16; TEMP 36.8; O2SAT 90
[2023-11-17 04:02] LABS: Basophils % 0.4 %; Eosinophils # 0.2 10^3/uL (0.0-0.8); Eosinophils % 2.7 %; Hematocrit 29.9 % (36-47); Lymphocytes # 2.6 10^3/uL (0.8-4.8); Lymphocytes % 37.7 %; Mean Corpuscular HGB Conc 31.4 g/dL (30-55); Mean Corpuscular Hemoglobin 29.1 pg (27-33); Mean Corpuscular Volume 92.6 fl (85-98); Mean Platelet Volume 8.5 fL (7.4-10.4); Monocytes % 13.8 %; Neutrophils # 3.15 10^3/uL (1.8-7.7); Nucleated Red Blood Cells % 0 %; Platelet Count 397 10^3/cmm (157-399); Red Blood Count 3.23 10^6/uL (3.85-5.65); White Blood Count 7.01 10^3/uL (3.29-11.43)
[2023-11-17 04:15] LABS: INR 1.05 (0.8-1.2)
[2023-11-17 04:26] LABS: Alanine Aminotransferase 8 U/L (0-33); Albumin Level 3.3 g/dL (3.5-5.2); Alkaline Phosphatase 48 U/L (35-105); Aspartate Amino Transferase 14 U/L (0-32); Blood Urea Nitrogen 13 mg/dL (8-23); Calcium 8.4 mg/dL (8.5-10.5); Carbon Dioxide 25 mmol/L (22-29); Chloride 98 mmol/L (98-107); Globulin 2.8 g/dL (1.3-4.6); Glucose 100 mg/dL (65-115); Osmolality Calculated 276 mOsm/kg (285-295); Sodium 133 mmol/L (136-145); Total Bilirubin 0.2 mg/dL (0.15-1.2); Total Protein 6.1 g/dL (6.6-8.7)
[2023-11-17] MEDS: levothyroxine 25 mcg Tablet 50 MCG PO (05:49)
[2023-11-17 06:00] VITALS: PULSE 53
[2023-11-17] MEDS: HYDROcodone-acetaminophen 10-325 mg Tablet 1 TAB PO (06:45)
[2023-11-17 08:00] VITALS: BP 137/74; PULSE 55; RESP 20; TEMP 36.8; O2SAT 94
[2023-11-17] MEDS: hyDRALAzine 50 mg Tablet 75 MG PO (08:04)
[2023-11-17] MEDS: atorvastatin 40 mg Tablet 80 MG PO (08:05)
[2023-11-17] MEDS: lisinopril 20 mg Tablet 40 MG PO (08:05)
[2023-11-17] MEDS: NIFEdipine ER (24 hr) 30 mg Tablet 60 MG PO (08:05)
[2023-11-17] MEDS: escitalopram 10 mg Tablet PO (08:06)
[2023-11-17] MEDS: hydroCHLOROthiazide 25 mg Tablet PO (08:06)
[2023-11-17] MEDS: aspirin 81 mg EC Tablet PO (08:06)
--- NOTE | 2023-11-17 09:03 | PM.DCS ---
Discharge Providers Date of Admission: 11/14/23 20:28 Date of Discharge: November 17, 2023 Attending Provider at Admission: Shawn Campos MD Attending Provider at Discharge: Houston Contreras MD Primary Care Provider: Obey Rose MD Diagnoses at Discharge Discharge Diagnosis (1) Hypertensive urgency: Status: Acute (2) Shortness of breath: Status: Acute (3) Chest pain: Status: Acute (4) Atrial fibrillation: Status: Acute (5) On Coumadin for atrial fibrillation: Status: Acute (6) Subtherapeutic anticoagulation: Status: Acute (7) Diastolic heart failure: Status: Acute (8) Severe pulmonary hypertension: Status: Acute (9) Persistent headaches: Status: Acute (10) Right-sided lacunar infarction: Status: Acute Reason for Visit Reason for Visit: BP High\Chest Pains Brief History: History as per HPI: Trish Rocha is a 67 year old female with a past medical history of hypertension, hyperlipidemia, atrial fibrillation on Coumadin, who presents [facility] due to shortness of breath, headache, chest pain. Currently patient is alert oriented x 3, following all commands, heart rates in the 60s, looks like sinus bradycardia, she is sitting up to the side of the bed, her major complaint is headache, she is on 2 L, last blood pressure is 167/76, respiratory rate 20. She tells me that she continues to have elevated blood pressures, up to 240, she has had intermittent headache, no blurry vision, no nausea, no vomiting, no facial droop no slurring of words, no focal weakness does report chest pressure, nonradiating, does report shortness of breath, he is requiring 2 L Hospital Course Hospital Course Patient was admitted to the ICU for further evaluation and management of hypertensive urgency with concerns for flash pulmonary edema. She was started on Cardene drip and her oral antihypertensives were restarted. She responded well to the treatment. On admission she was also found to be subtherapeutic on her INR. Her blood pressures improved but she continued to complain of persistent headache for which MRI head was done which ruled out acute ischemia but showed concerns for old strokes. Patient's headache is most likely in setting of hypertensive urgency along with old strokes. Given concerns for persistent subtherapeutic INR with high chance of stroke given paroxysmal A-fib further anticoagulation were discussed in detail with the patient. Options of bridging with higher dose of warfarin and Lovenox twice daily for next 2 weeks along with regular INR checks versus possible switch to Eliquis 5 mg twice daily were discussed in detail with the patient. 3 [facility] pharmacy was also discussed in detail with the patient. She verbalized understanding and wanted to switch for Eliquis. She has been discharged in medically stable condition with adjusted antihypertensive. During hospitalization she was found to have bradycardia for which her home dose of metoprolol was switched to Coreg. She is to check her blood pressure daily and maintain a blood pressure diary and follow-up with a primary care provider within next 2 weeks for further adjustment of antihypertensives. Physical Exam Const: COMMON NORMALS: no acute distress and patient oriented x3 HENMT: COMMON NORMALS: normocephalic HEAD & SCALP: normocephalic Eye: COMMON NORMALS: Equal, round and reactive pupils present PUPIL: Yes Equal, round and reactive pupils present Neck/C-Spine: COMMON NORMALS: no JVD Resp: COMMON NORMALS: normal respiratory effort, No retractions, No use of accessory muscles and clear to auscultation bilaterally AUSCULTATION: clear to auscultation bilaterally Cardio: COMMON NORMALS: no JVD, regular rate, regular rhythm, S1 normal heart sound present and S2 normal heart sound present RATE: regular rate RHYTHM: regular rhythm HEART SOUNDS: S1 normal heart sound present and S2 normal heart sound present GI: COMMON NORMALS: Normal to inspection, nondistended, normoactive bowel sounds present, Soft to palpation, non-tender and No hepatosplenomegaly present PALPATION: Yes Soft to palpation and Yes No hepatosplenomegaly present Extremity: COMMON NORMALS: capillary refill normal, no clubbing, cyanosis or edema, no calf tenderness and no pedal edema Neuro: COMMON NORMALS: patient oriented x3, CN's II-XII intact bilaterally and moves all extremities Psych: COMMON NORMALS: mental status grossly normal Urinary Catheter Management: Gould: Cath Placed During This Visit: yes, but has since been removed by the nurse Reason for Continuing Indwelling Catheter: Accurate Measurement of Urinary Output in Critically Ill Patients Urinary Catheter Date of Insertion: 11/14/23 Urinary Catheter Time of Insertion: 21:45 Date Urinary Catheter Removed: 11/15/23 Time Urinary Catheter Discontinued: 19:30 Discharge Data Studies Completed and Pending Completed Studies During Hospitalization Category Date Time Status CT head wo con* [id number] Stat Cat Scan 11/14/23 18:46 Completed XR chest 1V portable [id number] Stat Exams 11/14/23 18:31 Completed MR head wo/w con [id number] Routine MRI 11/16/23 09:23 Completed CV. echo limited [id number] Stat Ultrasound 11/15/23 21:03 Completed Pending at discharge Category Date Time Status Prothrombin Time INR AM LABS Lab 11/18/23 04:00 Ordered Prothrombin Time INR AM LABS Lab 11/19/23 04:00 Ordered Radiology Impressions Chest X-Ray 11/14/23 18:31 IMPRESSION: Mild coarsened interstitial markings may be chronic. Superimposed mild pulmonary edema or atypical infection difficult to exclude. Head CT 11/14/23 18:46 IMPRESSION: No acute intracranial findings. Head MRI 11/16/23 09:23 IMPRESSION: 1. No evidence of restricted diffusion to suggest acute ischemia. 2. Mild small vessel changes with mild parenchymal volume loss. 3. 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 Chronic lacunar infarct RIGHT cerebellum. 4. No hemosiderin. 5. No abnormal gadolinium enhancement. Echocardiogram: CONCLUSIONS Limited echocardiogram performed to assess LV systolic function. LV systolic function is normal with EF of 60 to 65%. No regional wall motion abnormalities are seen. Sam Robertson MD (Electronically Signed) Final Date: 15 November 2023 12:06 Laboratory Results WBC 7.01 10^3/uL (3.29-11.43) 11/17/23 03:50 RBC 3.23 10^6/uL (3.85-5.65) L 11/17/23 03:50 Hgb 9.40 g/dL (11.27-16.99) L 11/17/23 03:50 Hct 29.9 % (36-47) L 11/17/23 03:50 MCV 92.6 fl (85-98) 11/17/23 03:50 MCH 29.1 pg (27-33) 11/17/23 03:50 MCHC 31.4 g/dL (30-55) 11/17/23 03:50 RDW 14.0 % (12.1-15.1) 11/17/23 03:50 Plt Count 397 10^3/cmm (157-399) 11/17/23 03:50 MPV 8.5 fL (7.4-10.4) 11/17/23 03:50 Neut % (Auto) 45.0 % 11/17/23 03:50 Lymph % (Auto) 37.7 % 11/17/23 03:50 [place] % (Auto) 13.8 % 11/17/23 03:50 Eos % (Auto) 2.7 % 11/17/23 03:50 Baso % (Auto) 0.4 % 11/17/23 03:50 Neut # (Auto) 3.15 10^3/uL (1.8-7.7) 11/17/23 03:50 Lymph # (Auto) 2.6 10^3/uL (0.8-4.8) 11/17/23 03:50 [place] # (Auto) 1.0 10^3/uL (0.2-0.9) H 11/17/23 03:50 Eos # (Auto) 0.2 10^3/uL (0.0-0.8) 11/17/23 03:50 Baso # (Auto) 0.0 10^3/uL (0.0-0.1) 11/17/23 03:50 Nucleated RBC % (auto) 0 % 11/17/23 03:50 Nucleated RBCs # 0.0 /100WBC 11/17/23 03:50 PT 14.10 SECONDS (12.1-14.9) 11/17/23 03:50 INR 1.05 (0.8-1.2) 11/17/23 03:50 APTT 33.6 SECONDS (23.9-36.7) 11/14/23 18:20 Sodium 133 mmol/L (136-145) L 11/17/23 03:50 Potassium 4.0 mmol/L (3.5-5.1) 11/17/23 03:50 Chloride 98 mmol/L (98-107) 11/17/23 03:50 Carbon Dioxide 25 mmol/L (22-29) 11/17/23 03:50 Anion Gap 14.0 (5-19) 11/17/23 03:50 BUN 13 mg/dL (8-23) 11/17/23 03:50 Creatinine 0.6 mg/dL (0.5-0.9) 11/17/23 03:50 GFR Calculation 100.0 mL/min (90-130) 11/17/23 03:50 Glucose 100 mg/dL (65-115) 11/17/23 03:50 Estimat Average Glucose 105 11/14/23 18:20 Hemoglobin A1c 5.3 % (4.0-6.0) 11/14/23 18:20 Calculated Osmolality 276 mOsm/kg (285-295) L 11/17/23 03:50 Calcium 8.4 mg/dL (8.5-10.5) L 11/17/23 03:50 Total Bilirubin 0.2 mg/dL (0.15-1.2) 11/17/23 03:50 AST 14 U/L (0-32) 11/17/23 03:50 ALT 8 U/L (0-33) 11/17/23 03:50 Alkaline Phosphatase 48 U/L (35-105) 11/17/23 03:50 Troponin T Baseline 14 ng/L (0-10) H 11/14/23 18:20 Troponin T 120 Minute 14.28 ng/L (0-10) H 11/14/23 20:45 Delta Troponin T 0.28 ABS# (0-10) 11/14/23 20:45 Troponin T Hi Sens 6Hr 13.55 ng/L (0-10) H 11/15/23 02:00 Troponin T Hi Sens 6Hr Delta -0.45 ng/L (0-12) L 11/15/23 02:00 NT-Pro-B Natriuret Pep 6396 pg/mL (0-125) H 11/15/23 05:21 Total Protein 6.1 g/dL (6.6-8.7) L 11/17/23 03:50 Albumin 3.3 g/dL (3.5-5.2) L 11/17/23 03:50 Globulin 2.8 g/dL (1.3-4.6) 11/17/23 03:50 Triglycerides 95 mg/dL (0-150) 11/14/23 18:20 Cholesterol 189 mg/dL (0-200) 11/14/23 18:20 LDL Cholesterol, Calc 132 mg/dL (50-129) H 11/14/23 18:20 HDL Cholesterol 38 mg/dL (60-100) L 11/14/23 18:20 LDL/HDL Ratio 3.47 RATIO (0.00-3.22) H 11/14/23 18:20 Cholesterol/HDL Ratio 4.97 mg/dL (0.0-4.40) H 11/14/23 18:20 TSH 4.08 uIU/mL (0.27-4.20) 11/14/23 18:20 Urine Color Yellow (Yellow) 11/14/23 19:37 Urine Appearance Clear (CLEAR) 11/14/23 19:37 Urine pH 7 (5-7) 11/14/23 19:37 Ur Specific [place] 1.005 (1.005-1.030) 11/14/23 19:37 Urine Protein Trace (Negative) 11/14/23 19:37 Urine Glucose (UA) Norm (Normal) 11/14/23 19:37 Urine Ketones Negative (Negative) 11/14/23 19:37 Urine Blood Neg (Negative) 11/14/23 19:37 Urine Nitrate Negative (Negative) 11/14/23 19:37 Urine Bilirubin Neg (Negative) 11/14/23 19:37 Urine Urobilinogen Norm mg/dL (Negative) 11/14/23 19:37 Ur Leukocyte Esterase Negative (Negative) 11/14/23 19:37 Urine RBC 0-4 /hpf (0-2) H 11/14/23 19:37 Urine WBC 0-4 /hpf (0-5) H 11/14/23 19:37 Ur Squamous Epith Cells 0-4 /hpf (0-5) H 11/14/23 19:37 Amorphous Sediment Not Reportable 11/14/23 19:37 Urine Bacteria Trace /hpf (NONE) 11/14/23 19:37 SARS-CoV-2 Ag (Rapid) negative (Negative) 11/14/23 19:37 Vitals Last Vital Signs Temp 98.2 F 11/17/23 08:00 Pulse 55 L 11/17/23 08:00 Resp 20 H 11/17/23 08:00 BP 137/74 11/17/23 08:00 Pulse Ox 94 11/17/23 08:00 O2 Del Method Room Air 11/17/23 08:00 O2 Flow Rate 2 11/15/23 14:10 Discharge Plan Discharge Patient Disposition: Home Condition: Stable Prescriptions: New carvedilol 12.5 mg Tablet 12.5 mg PO BID Qty: 60 0RF aspirin 81 mg Tablet,Delayed Release (Dr/Ec) 81 mg PO DAILY Qty: 30 0RF hydrochlorothiazide 25 mg Tablet 25 mg PO DAILY Qty: 30 0RF Eliquis 5 mg tablet 5 mg PO Q12H Qty: 60 0RF Continued (DME) left arm sling See Rx Instructions .Route .MEDSUPPLY Qty: 1 0RF Rx Instructions: As directed famotidine [Pepcid] 20 mg tablet 20 mg PO BID Qty: 180 11RF hydralazine 50 mg tablet 75 mg PO TID Qty: 90 11RF levothyroxine 25 mcg tablet 50 mcg PO DAILY Qty: 90 11RF lisinopril 40 mg tablet 40 mg PO DAILY Qty: 30 11RF magnesium oxide 400 mg (241.3 mg magnesium) tablet 400 mg PO DAILY Qty: 30 3RF loratadine [Claritin] 10 mg tablet 10 mg PO DAILY Qty: 30 11RF fluticasone propionate 50 mcg/actuation spray,suspension 2 spray intranasal DAILY Qty: 16 11RF hydrocodone-acetaminophen 5-325 mg tablet 1 tab PO BID PRN (Reason: pain) 30 Days Qty: 60 0RF escitalopram oxalate 10 mg tablet 10 mg PO DAILY Qty: 60 2RF quetiapine [Seroquel] 100 mg tablet 100 mg PO BEDTIME atorvastatin 80 mg tablet 80 mg PO DAILY nifedipine 60 mg tablet extended release 24hr 60 mg PO DAILY trazodone 100 mg tablet 100 mg PO BEDTIME ferrous sulfate 325 mg (65 mg iron) tablet 325 mg PO DAILY Discontinued warfarin 4 mg tablet 4 mg PO DAILY Qty: 90 4RF warfarin 5 mg tablet 5 mg PO DAILY metoprolol tartrate 100 mg tablet 100 mg PO BID Qty: 60 4RF Discharge Orders: Discharge Order (Routine); Ordered 11/17/23 Ordered By: Houston Contreras Referrals: Obey Rose MD [Primary Care Provider] - 11/24/23 11:10 am Discharge Diet: Cardiac Discharge Activity: Resume usual activity and Increase activity as tolerated Patient Instructions: Hydrochlorothiazide (By mouth), Aspirin (By mouth), Carvedilol (By mouth), Apixaban (By mouth) (Eliquis), Headache, Heart Failure (DC), Pulmonary Arterial Hypertension (DC), Chronic Hypertension (ED), CHF Stoplight, Chest Pain Stoplight, Opioid Safety Activity Restrictions/Additional Instructions: Eliqupatricia is the blood thinner which she was taking daily. It will be 5 mg twice daily. Your goal blood pressure of less than 140/90 mmHg. Metoprolol has been changed to Coreg. Hydrochlorothiazide has also been added for your blood pressure medications. Continue taking all other medications as before. Do not take warfarin anymore. Discharge Attestations Time Spent in Discharge Care*: greater than 30 min Specific Discharge Activities: educating patient, discussing with pcp/other providers, discussing with counseling case manager/social workers/dc planners, documenting/other paperwork and evaluating patient/reviewing data Status at Discharge: Cognitive status at discharge: mildly impaired cognition, Behavioral status at discharge: cooperative, Functional status at discharge: independent ambulation, Overall status at discharge: patient is back to baseline Quality Metrics Clinical Quality Measures [ No reported AMI, CVA or VTE this stay] Coding Level of Care Code 01538 Total time (in minutes) for Discharge: 60 Diagnoses Hypertensive urgency I16.0 Shortness of breath R06.02 Chest pain R07.9 Atrial fibrillation I48.91 On Coumadin for atrial fibrillation I48.91; Z79.01 Subtherapeutic anticoagulation Z51.81; Z79.01 Diastolic heart failure I50.30 Severe pulmonary hypertension I27.20 Persistent headaches R51.9 Right-sided lacunar infarction I63.81
[2023-11-17] MEDS: carvedilol 12.5 mg Tablet PO (09:10)
[2023-11-17 10:20] VITALS: BP 137/74; PULSE 55; RESP 20; TEMP 36.8; O2SAT 94
--- NOTE | 2023-11-17 11:01 | PC.NURSE ---
discharge instructions given and explained.pt verb understanding of instructions.discharged via w/c to exit at this time.spouse to drive pt home
== END 2023-11-17 11:05 | disposition home or self-care (01) | DRG 305 ==
LOC: ER 20:23 → ICU 21:05 → CSU 11-15 18:25
PROVIDERS: Internal Medicine; Admitting Provider Family Medicine; Emergency Provider Emergency Medicine; PCP Family Medicine; Visit Provider Student in an Organized Health Care Education/Training Program
DX: I16.0 Hypertensive urgency (principal); I50.30 Unspecified diastolic (congestive) heart failure; E78.5 Hyperlipidemia, unspecified; E03.9 Hypothyroidism, unspecified; E11.9 Type 2 diabetes mellitus without complications; R51.9 Headache, unspecified; I27.20 Pulmonary hypertension, unspecified; I11.0 Hypertensive heart disease with heart failure; I48.0 Paroxysmal atrial fibrillation; E87.6 Hypokalemia; Z51.81 Encounter for therapeutic drug level monitoring; Z79.01 Long term (current) use of anticoagulants; Z79.899 Other long term (current) drug therapy; Z79.890 Hormone replacement therapy; Z98.84 Bariatric surgery status; Z82.49 Family history of ischemic heart disease and other diseases of the circulatory system; Z86.73 Personal history of transient ischemic attack (TIA), and cerebral infarction without residual deficits; Z11.52 Encounter for screening for COVID-19
CPT/HCPCS: 36415; 51702; 70450; 70553; 71045; 80048; 80053; 80061; 81001; 83036; 83735; 83880; 84443; 84484; 85025; 85610; 85730; 87426; 93005; 93308; 94664; 96374; 96375; 96376; 99285; J0360; J0780; J1885; J1940; J2060; J2270; J2470; J2765; J7040

== ENCOUNTER → 2023-11-24 13:17 | Outpatient (BNVA) | payer MEDICARE, SELFPAY | PROVIDERS: PCP Family Medicine; Visit Provider Family Medicine | DX: Z01.818 Encounter for other preprocedural examination (principal); I49.1 Atrial premature depolarization | CPT/HCPCS: 80053; 81000; 85025; 85610 ==

== ENCOUNTER 2023-12-09 16:00 | Inpatient (IN) | payer MEDICARE, SELFPAY ==
--- OUTSIDE RECORDS SUMMARY | 2023-11-27 16:27 | XMS_ITS ---
Author Name Unknown Organization [facility] Address [address] [place] [address] Care Team Providers Care Product Test Specialist Name Role Phone Obey Rose Primary Care Provider STEPHEN Pina Unavailable [phone] ADRIENNE DIOP Unavailable [phone] Allergies No Known Allergies Results Component Value Reference Range Notes Urinalysis, Routine Reviewed date:09/24/2023 02:42:22 PM Interpretation: Performing Lab: Notes/Report: Urine-Color yellow Appearance clear Glucose - Bilirubin - Ketones - Specific [place] 1.010 Occult Blood - pH 6.5 Urine Protein - Urobilinogen,Semi-Qn - Nitrite, Urine - WBC Esterase - REASON FOR VISIT 2-4 wk postop w/ua/pvr Medications Medication SIG (Take, Route, Frequency, Duration) Notes Start Date End Date Status hydrALAZINE HCl 10 MG 1 tablet with food Orally Four times a day Active Levothyroxine Sodium 50 MCG 1 tablet in the morning on an empty stomach Orally Once a day Active Metoprolol Succinate 50 MG 1 capsule Ora lly Once a day Active Lisinopril 40 MG 1 tablet Orally Once a day Active Magnesium 300 MG 1 capsule with a riya l Orally Once a day Active traZODone HCl 100 MG 1 tablet at bedtime Orally Once a day Active HYDROcodone-Acetaminophen 5-325 MG 1 tablet as needed Orally every 6 hrs Active Atorvastatin Calcium 80 MG 1 tablet Oral ly Once a day Active Eliquis 5 MG 1 tablet Orally Twic e a day Active Fluticasone Propionate 50 MCG/ACT 1 spray in each nostril Nasally Once a day Active Cetirizine HCl 10 MG 1 tablet Orally Onc e a day Active Fish Oil 500 MG as directed Orally Active ALPRAZolam 1 MG 1 tablet Orally Twic e a day Not-Taking Calcium 500 MG 1 tablet with meals Orally Twice a day Active NIFEdipine 20 MG 1 capsule as needed Orally every 8 hrs Active QUEtiapine Fumarate 100 MG 1 tablet at b edtime Orally Once a day Active Social History Tobacco Use: Social History Observation Description Date Details (start date - stop date) Former Smoker NA - NA Tobacco Use/Smoking Question Answer Notes Tobacco use: former smoker When did you start smoking? 03/02/1975 When did you stop smoking? 03/02/1989 How long has it been since you last smoked? > 10 years Tobacco Control (Standard) Question Answer Notes Tobacco use: Former smoker How long has it been since you last smoked? Grea ter than 10 years Vital Signs Blood pressure systolic 123 mm Hg 09/24/19 24 Blood pressure diastolic 50 mm Hg 024 Heart Rate 84 /min 09/24/2023 Height 61 in 09/24/2023 Weight 155 lbs 09/24/2023 BMI 29.28 kg/m2 09/24/2023 Height-cm 154.94 cm 09/24/2023 Weight-kg 70.31 kg 09/24/2023 Procedures Procedure Date Ordered Date Performed Result Body Sit e Bladder Scan 09/24/2023 09/24/2023 8 mL Encounters Encounter Location Date Provider Diagnosis [facility], [facility] [address] [place] [address] 09/24/2023 ADRIENNE DIOP Urgency of urination R39.15 ; OAB (overactive bladder) N32.81 and Frequency of urination R35.0 Assessments Encounter Date Diagnosis (ICD Code) Assessment Notes Treatment Notes Treatment Clinical Notes 09/24/2023 Urgency of urination (ICD-10 - R39.15) 09/24/2023 OAB (overactive bladder) (ICD-10 - N32.81) Pt doing well postoperatively without complication. She was hoping for more improvement than she received, but she has had well over a 50% improvement in symptoms. UA is clear. Emtpying well. Will have her RTC in 3m with UA/PVR for reassessment. 09/24/2023 Frequency of urination (ICD-10 - R35.0) Plan Of Treatment Treatment Notes Assessment Notes OAB (overactive bladder) Pt doing well p ostoperatively without complication. She was hoping for more improvement than she received, but she has had well over a 50% improvement in symptoms. UA is clear. Emtpying well. Will have her RTC in 3m with UA/PVR for reassessment. Next Appt Details Follow Up: 3m with UA/PVR, Nina monteson: Provider Name:ADRIENNE HARRELL, 12/24/2023 03:20:00 PM, [address] [place], [address], Progress Notes * SOSA Trish DDOB: [birth year] (67 yo F)Acc No.[id number]:09/24/2023 Patient:?Trish SWAN Provider:?Adrienne Diop APRN :1955???Age:67 Y???Sex:Female D ate:09/24/2023 Address:[address] [place] [address] [address] [place], [place] [id number] Pcp:Obey Rose Subjective: * Chief Complaints: * ???2-4 wk postop w/ua/pvr * HPI: ???:?Ms. Rivera is a 67-year-old female patient of Dr. Watson who established in 04/2023 with complaint of urinary frequency. She had been seen by Dr. Amin and [facility] in [place] in the past few years for same complaint. She reports trying multiple medications with no improvement in symptoms including Myrbetriq which caused HTN. She has trialed Macrobid prophylaxis QD x 30 days. Without the Macrobid she reports bothersome frequency Q 15 minutes throughout the night. Denies any urinary leakage. Negative urine culture in 12/19/2022 and 01/19/2023, however patient states she had urinary sepsis around this time. Denies any history of kidney stones. Reports FH of CaP in maternal grandfather. She reports drinking coffee in AM, and a few sips of soda daily, with good water intake.?Cysto on 07/02/23 revealed multiple erythematous areas across the bladder concerning for malignancy especially with her h/o smoking.? Pt underwent operative cystoscopy, bladder biopsy and fulguration on 08/04/23. Pathology returned benign reporting?partially denuded urothelial mucosa, and some mild chronic inflammation reactive changes.? ? ?With ongoing bother from frequency and urgency, Dr. Watson recommended intravesical Botox and she underwent procedure on 09/08/23. She is here today for 2-4w postop. She states she has had some improvement. Her daytime frequency went from q15min to q1h and nocturia has improved from every 15-30 min to 3x per night. She denies any bladder pain, dysuria, hematuria. * ROS:?General / Constitutional Patient denies chills, fever, change in appetite. Gastrointestinal Patient denies abdominal pain, nausea, vomiting, diarrhea. Genitourinary Comments See HPI for details. . * Medical History:? * Surgical History:? X 3 tonsillectomy * Hospitalization/Major Diagno stic Procedure:?hospitalized for High bp 04/2022High BP 09/2022rapid heart beat/afib 06/2023 * Family History:?Father: dece ased.?Mother: alive, hypertension, heart disease.? * Social History:?Tobacco Use:?Tobacco Use/Smoking?Tobacco use:?former smoker,?When did you start smoking??03/02/1975,?When did you stop smoking??03/02/1989,?How long has it been since you last smoked??> 10 years.?Tobacco Control (Standard)?Tobacco use:?Former smoker,?How long has it been since you last smoked??Greater than 10 years.? * Medications:?TakingHYDROcodo ne-Acetaminophen 5-325 MG Tablet 1 tablet as needed Orally every 6 hrs traZODone HCl 100 MG Tablet 1 tablet at bedtime Orally Once a day Eliquis 5 MG Tablet 1 tablet Orally Twice a day Atorvastatin Calcium 80 MG Tablet 1 tablet Orally Once a day Fluticasone Propionate 50 MCG/ACT Suspension 1 spray in each nostril Nasally Once a day Metoprolol Succinate 50 MG Capsule ER 24 Hour Sprinkle 1 capsule Orally Once a day Magnesium 300 MG Capsule 1 capsule with a meal Orally Once a day Lisinopril 40 MG Tablet 1 tablet Orally Once a day Levothyroxine Sodium 50 MCG Tablet 1 tablet in the morning on an empty stomach Orally Once a day hydrALAZINE HCl 10 MG Tablet 1 tablet with food Orally Four times a day QUEtiapine Fumarate 100 MG Tablet 1 tablet at bedtime Orally Once a day NIFEdipine 20 MG Capsule 1 capsule as needed Orally every 8 hrs Fish Oil 500 MG Capsule as directed Orally Cetirizine HCl 10 MG Tablet 1 tablet Orally Once a day Calcium 500 MG Tablet 1 tablet with meals Orally Twice a day Taking HYDROcodone-Acetaminophen 5-325 MG Tablet 1 tablet as needed Orally every 6 hrs Taking traZODone HCl 100 MG Tablet 1 tablet at bedtime Orally Once a day Taking Eliquis 5 MG Tablet 1 tablet Orally Twice a day Taking Atorvastatin Calcium 80 MG Tablet 1 tablet Orally Once a day Taking Fluticasone Propionate 50 MCG/ACT Suspension 1 spray in each nostril Nasally Once a day Taking Metoprolol Succinate 50 MG Capsule ER 24 Hour Sprinkle 1 capsule Orally Once a day Taking Magnesium 300 MG Capsule 1 capsule with a meal Orally Once a day Taking Lisinopril 40 MG Tablet 1 tablet Orally Once a day Taking Levothyroxine Sodium 50 MCG Tablet 1 tablet in the morning on an empty stomach Orally Once a day Taking hydrALAZINE HCl 10 MG Tablet 1 tablet with food Orally Four times a day Taking QUEtiapine Fumarate 100 MG Tablet 1 tablet at bedtime Orally Once a day Taking NIFEdipine 20 MG Capsule 1 capsule as needed Orally every 8 hrs Taking Fish Oil 500 MG Capsule as directed Orally Taking Cetirizine HCl 10 MG Tablet 1 tablet Orally Once a day Taking Calcium 500 MG Tablet 1 tablet with meals Orally Twice a day Not-TakingALPRAZolam 1 MG Tablet 1 tablet Orally Twice a day Medication List reviewed and reconciled with the patientNot-Taking ALPRAZolam 1 MG Tablet 1 tablet Orally Twice a day Medication List reviewed and reconciled with the patient * Allergies:?N.K.D.A.no[Allerg ies Verified] Objective: * Vitals:?BP:123/50mm Hg, HR:8 4/min, Wt:155lbs, Wt-k.31 kg, Ht: 61 in, Ht-cm: 154.94 cm, BMI:29.28Index, Body Surface Area: 1.74. * Examination: ???General Examination: ?General appearance:?alert, well-nourished and in no acute distress.?Chest:?resp even and nonlabored.?Abdomen:?soft, NT, ND.?Female genitourinary:?No CVAT, No SPT, no bladder distention.? Assessment: * Assessment: 1.?OAB (overactive bladder) - N32.81 (Primary)???Specify :REFRACTORY s/p Botox 09/08/23???2.?Urgency of urination - R39.15???3.?Frequency of urination - R35.0??? Plan: * Treatment: ? Value Reference Range ?Urine-Color yellow * ?Appearance clear * ?Glucose - * ?Bilirubin - * ?Ketones - * ?Specific [place] 1.010 * ?Occult Blood - * ?pH 6.5 * ?Urine Protein - * ?Urobilinogen,Semi-Qn - * ?Nitrite, Urine - * ?WBC Esterase - ?Procedure: Bladder Scan (Performed Date - 09/24/2023)?8 mL Notes: Pt doing well postoperatively without complication. She was hoping for more improvement thanshe received, but she has had well over a 50% improvement in symptoms. UA is clear. Emtpying well. Will have her RTC in 3m with UA/PVR for reassessment. ?? * Procedure Codes:?05206 URINA LYSIS, AUTO, W/O [id number] US URINE CAPACITY MEASURE * Follow Up:?3m with UA/PVR * Billing Information: * Visit Code:? 43949 Office Visit, Est Pt., Level 3. * Procedure Codes:? 20369 URINALYSIS, AUTO, W/O SCOPE. 52841 US URINE CAPACITY MEASURE. * Sign off status: Completed true * Provider:?Adrienne Edwardschens, [employer]MENT Date:? Generated for Breezy lopez/Darling/Marcyitting on:?11/27/2023 04:27 PM CDT History and Physical Notes * Examination Category Sub-Category Detail Notes General Examination General appearance: alert, w ell-nourished and in no acute distress Chest: resp even and nonlab ored Abdomen: soft, NT, ND Female genitourinary: No CVAT, No SPT, n o bladder distention
--- OUTSIDE RECORDS SUMMARY | 2023-11-27 16:27 | XMS_ITS ---
Author Name Unknown Organization [facility] Address [address] [facility] [place] [address] Care Team Providers Care Second Worker Name Role Phone Obey Rose Primary Care Provider STEPHEN Pina [phone] REASON FOR VISIT Cysto Botox @ [facility] Encounters Encounter Location Date Provider Diagnosis [facility] [address] [facility] [place] [address] 09/08/2023 STEPHEN SARMIENTO OAB (overactive bladder) N32.81 ; Urgency of urination R39.15 and Frequency of urination R35.0 Assessments Encounter Date Diagnosis (ICD Code) Assessment Notes Treatment Notes Treatment Clinical Notes 09/08/2023 OAB (overactive bladder) (ICD-10 - N32.81) 09/08/2023 Urgency of urination (ICD-10 - R39.15) 09/08/2023 Frequency of urination (ICD-10 - R35.0) Plan Of Treatment Next Appt Details Provider Name:WHITNEY Hardwick NAGAKHUSHBOO SHARRI, 12/24/2023 03:20:00 PM, [address] [place], [address], Progress Notes * Trish SWAN DDOB: [birth year] (67 yo F)Acc No.[id number]:09/08/2023 Patient:?Trish SWAN Provider:?STEPHEN SARMIENTO MD :1955???Age:67 Y???Sex:Female D ate:09/08/2023 Address:[address] [place] [address] [address] [place], [place] [id number] Pcp:Obey Rose * Billing Information: * Visit Code:? * Procedure Codes:? 18640 CYSTOSCOPY CHEMODENERVATION. * Sign off status: Completed true * Provider:?STEPHEN SARMIENTO MD Date:?11/2023 Generated for Breezy lopez/Darling/eTransmitting on:?11/27/2023 04:27 PM CDT
--- OUTSIDE RECORDS SUMMARY | 2023-11-27 16:28 | XMS_ITS ---
Author Name Unknown Organization [facility], [facility] Address [address] [place] [address] Care Team Providers Care Material Handling Equipment Stevedore Name Role Phone Obey Rose Primary Care Provider STEPHEN Pina [phone] REASON FOR VISIT Surgery Lab Orders Encounters Encounter Location Date Provider Diagnosis [facility], [facility] [address] [place] [address] 08/31/2023 STEPHEN SARMIENTO Preop testing Z01.81 8 ; Essential (primary) hypertension I10 and Lesion of bladder N32.9 Assessments Encounter Date Diagnosis (ICD Code) Assessment Notes Treat ment Notes Treatment Clinical Notes 08/31/2023 Preop testing (ICD-10 - Z01.818) 08/31/2023 Essential (primary) hypertension (ICD-10 - I10) 08/31/2023 Lesion of bladder (ICD-10 - N32.9) Plan Of Treatment Pending Test Test Name Order Date Basic Metabolic Panel 08/31/2023 CBC w/ Auto Diff 08/31/2023 UA Reflex -- [id number] 08/31/2023 Next Appt Details Provider Name:WHITNEY HARRELL, 12/24/2023 03:20:00 PM, [address] [place], [address], Progress Notes * Trish SWAN DDOB: [birth year] (67 yo F)Acc No.[id number]:08/31/2023 Patient:?Trish SWAN :1955???Age:67 Y???Sex:Female Address:[address] [place] [phone] Subjective: * Chief Complaints: * ???Surgery Lab Orders * Medical History:? * Surgical History:? * Hospitalization/Major Diagno stic Procedure:? * Medications:? Objective: * Vitals:? * Physical Examination:? Assessment: * Assessment: 1.?Preop testing - Z01.818?2 .?Essential (primary) hypertension - I10?3.?Lesion of bladder - N32.9? Plan: * Treatment: 2.?Essential (primary) hyper tension?LAB: Basic Metabolic Panel ?LAB: CBC w/ Auto Diff 3.?Lesion of bladder?LAB: UA Reflex -- [id number] * Procedure Codes:? * true * Date:? Generated for Breezy lopez/Darling/eTransmitting on:?11/27/2023 04:27 PM CDT
--- OUTSIDE RECORDS SUMMARY | 2023-11-27 16:28 | XMS_ITS | Patient Health Record ---
Author Name Unknown Organization [employer] [facility], [facility] Address [address] [place] [address] Care Team Providers Care Electronic Sales And Service Technician Name Role Phone Obey Rose Primary Care Provider UnavailSTEPHEN Leahy Unavailable [phone] CHIKIS WHITNEY Unavailable [phone] ABILIO MENESES Unavailable [phone] Allergies No Known Allergies Results Component Value Reference Range Notes Urinalysis, Routine Reviewed date:09/24/2023 02:42:22 PM Interpretation: Performing Lab: Notes/Report: Urine-Color yellow Appearance clear Glucose - Bilirubin - Ketones - Specific [place] 1.010 Occult Blood - pH 6.5 Urine Protein - Urobilinogen,Semi-Qn - Nitrite, Urine - WBC Esterase - Basic Metabolic Panel Reviewed date:08/09/2023 06:30:19 PM Interpretation: Performing Lab: Notes/Report: Use of this assay is not recommended for patients undergoing treatment with phenindione, due to the potential for falsely depressed results. Testing performed at: [address] [place] [address] CLIA ID [id number] Calculation performed from GFR calculator provided by the [employer]. Glomerular Filtration rate(GRF) is the best overall index of kidney function. Normal GFR varies according to age,sex, body size, and declines with age. The National Kid[employer] Foundation recommends using the CKD-EPI Creatinine Equation(2020) to estimate GFR. L-obfivx-e-benzoquinone imine (NAPQI) is a metabolite of acetaminophen, NAPQI concentrations of apparoximately 10 mg/L correlation to toxic levels of acetaminophen demonstrates a greater than or equil to 10% change in results. NAPQI concentrations greater than this may lead to falsely depressed results for patient samples. Testing performed at [facility], [address] [place] [address] [place] [address]. CLIA ID#: [id number] Sodium 133 136-145 MMOL/L Potassium 4.0 3.5-5.1 MMOL/L Chloride 99 98-107 MMOL/L CO2 28.5 20.0-31.0 MMOL/L Glucose Serum 104 71-110 MG/DL BUN 10 7-21 MG/DL Creat .78 .51-1.17 MG/DL GFR 83.6 Anion Gap 10 5-15 BUN/Creat Ratio 12.8 12.0-20.0 % Calcium 9.8 8.7-10.4 MG/DL Osmo Serum,Calculated 275 280-300 MOSM/KG CBC w/ Auto Diff Reviewed date:08/09/2023 06:30:19 PM Interpretation: Performing Lab: Notes/Report: Testing performed at: [address] [place] [address] CLIA ID [id number] WBC 6.3 4.5-11.0 X10'3 RBC 3.51 4.00-5.20 X10'6 Hgb 10.4 12.0-16.0 G/DL Hct 32.7 36.0-46.0 % MCV 93.2 80.0-100.0 FL MCH 29.6 27.0-31.0 PG MCHC 31.8 31.0-37.0 G/DL Platelet 354 150-400 X10'3 RDW-SD 44.8 35.0-49.0 FL RDW-CV 13.1 12.2-15.6 % MPV 8.8 9.2-12.0 FL Neutro Auto% 65.5 42.0-75.0 % Lymph Auto% 24.4 20.0-51.0 % Kenton Auto% 9.0 1.7-9.3 % Eos Auto% .6 .0-6.0 % Baso Auto% 0.3 0.0-1.0 % Imm Gran% .2 .0-.4 % Neutro Abs 4.13 .80-7.70 Absolute Neutrophil Count 4130 Lymph Abs 1.54 .10-4.10 Kenton Abs .57 .20-1.00 Eos Abs .04 .00-.40 Baso Abs .02 .00-.10 Imm Gran Abs .01 .00-.10 NRBC# .00 .00-.20 X10'3 NRBC% .00 .00-.20 /100 intact WBC's Urinalysis, Routine Reviewed date:08/20/2023 02:08:10 PM Interpretation: Performing Lab: Notes/Report: Urine-Color yellow Appearance clear Glucose - Bilirubin - Ketones - Specific [place] 1.015 Occult Blood - pH 5.5 Urine Protein - Urobilinogen,Semi-Qn - Nitrite, Urine - WBC Esterase - Urinalysis, Routine Reviewed date:07/02/2023 03:26:18 PM Interpretation: Performing Lab: Notes/Report: Urine-Color yellow Appearance clear Glucose - Bilirubin - Ketones - Specific [place] 1.005 Occult Blood - pH 7.0 Urine Protein - Urobilinogen,Semi-Qn - Nitrite, Urine - WBC Esterase - Urinalysis Gross Exam - Urinalysis, Routine Reviewed date:04/08/2023 03:46:57 PM Interpretation: Performing Lab: Notes/Report: Urine-Color yellow Appearance clear Glucose - Bilirubin - Ketones - Specific [place] 1.010 Occult Blood - pH 6.0 Urine Protein - Urobilinogen,Semi-Qn - Nitrite, Urine - WBC Esterase - Urinalysis Gross Exam - UTI Pathogen Panel PCR Reviewed date:04/09/2023 01:33:56 PM Interpretation: Performing Lab: Notes/Report: Urinalysis, Routine Reviewed date:07/28/2023 01:38:19 PM Interpretation: Performing Lab: Notes/Report: Urine-Color yellow Appearance clear Glucose - Bilirubin - Ketones - Specific [place] 1.010 Occult Blood - pH 6.5 Urine Protein - Urobilinogen,Semi-Qn - Nitrite, Urine POS WBC Esterase trace Reason For Referral No Information Medications Medication SIG (Take, Route, Frequency, Duration) Notes Start Date End Date Status traZODone HCl 100 MG 1 tablet at bedtime Orally Once a day Active HYDROcodone-Acetaminophen 5-325 MG 1 tablet as needed Orally every 6 hrs Active Atorvastatin Calcium 80 MG 1 tablet Oral ly Once a day Active Eliquis 5 MG 1 tablet Orally Twic e a day Active hydrALAZINE HCl 10 MG 1 tablet with food Orally Four times a day Active Levothyroxine Sodium 50 MCG 1 tablet in the morning on an empty stomach Orally Once a day Active NIFEdipine 20 MG 1 capsule as needed Orally every 8 hrs Active QUEtiapine Fumarate 100 MG 1 tablet at b edtime Orally Once a day Active Metoprolol Succinate 50 MG 1 capsule Ora lly Once a day Active Fluticasone Propionate 50 MCG/ACT 1 spray in each nostril Nasally Once a day Active Lisinopril 40 MG 1 tablet Orally Once a day Active Magnesium 300 MG 1 capsule with a riya l Orally Once a day Active Cetirizine HCl 10 MG 1 tablet Orally Onc e a day Active Fish Oil 500 MG as directed Orally Active ALPRAZolam 1 MG 1 tablet Orally Twic e a day Not-Taking Calcium 500 MG 1 tablet with meals Orally Twice a day Active Social History Tobacco Use: [...] last smoked? Grea ter than 10 years Problems Problem Type SNOMED Code ICD Code Onset Dates Problem Status W/U Status Risk Notes Problem [id number] Essential (primary) hypertension (I10) Active confirmed Problem Use of anticoagulation (663511206) Chronic anticoagulation (Z79.01) Active confirmed Problem Anxiety about health (174784403) Anxiety about health (F41.8) Active confirmed Problem Urinary frequency (467115121) Urinary frequency (R35.0) Active confirmed Problem Recurrent urinary tract infection (398297608) Recurrent UTI (N39.0) Active confirmed Problem Lesion of bladder (539267211) Lesion of bladder (N32.9) Active confirmed Problem History of urinary tract infection (1253027982945) History of UTI (Z87.440) Active confirmed Problem OAB (overactive bladder) (N32.81) Active confirmed Vital Signs Heart Rate 84 /min 09/24/2023 Temperature 97.9 degrees Fahrenheit 08/20/2023 Blood pressure diastolic 50 mm Hg 09/24/2023 Height-cm 154.94 cm 09/24/2023 Weight-kg 70.31 kg 09/24/2023 Height 61 in 09/24/2023 Blood pressure systolic 123 mm Hg 09/24/2023 Weight 155 lbs 09/24/2023 BMI 29.28 kg/m2 09/24/2023 Procedures Procedure Date Ordered Date Performed Result Body Sit e Bladder Scan 04/08/2023 04/08/2023 N/A Bladder Scan 09/24/2023 09/24/2023 8 mL Encounters Encounter Location Date Provider Diagnosis [facility], [facility] [address] [place] [address] 02/25/2023 [facility] [employer] [facility], [facility] [address] [place] [address] 05/11/2023 ABILIO MENESES [employer] [facility], [facility] [address] [place] [address] 07/15/2023 [facility] [employer] [facility], [facility] [address] [place] [address] 07/16/2023 [facility] [employer] [facility], [facility] [address] [place] [address] 07/20/2023 [facility] [employer] [facility], [facility] [address] [place] [address] 07/28/2023 STEPHEN WATSON Preop testing Z01.81 8 and Essential (primary) hypertension I10 [facility], [facility] [address] [place] [address] 07/30/2023 [facility] [employer] [facility], [facility] [address] [place] [address] 08/31/2023 STEPHEN WATSON Preop testing Z01.81 8 ; Essential (primary) hypertension I10 and Lesion of bladder N32.9 [facility], [facility] [address] [place] [address] 04/08/2023 ABILIO MENESES Urinary frequency R3 5.0 ; Urinary urgency R39.15 ; Anxiety about health F41.8 ; History of UTI Z87.440 and History of smoking Z87.891 [facility], [facility] [address] [place] [address] 07/02/2023 STEPHEN WATSON Recurrent UTI N39.0 ; Lesion of bladder N32.9 ; Urinary frequency R35.0 ; Urinary urgency R39.15 ; Anxiety about health F41.8 ; History of UTI Z87.440 ; History of smoking Z87.891 and OAB (overactive bladder) N32.81 [facility] [employer], [facility] [address] [place] [address] 07/28/2023 ABILIO MENESES Preoperative examina tion Z01.818 ; Lesion of bladder N32.9 ; Urinary frequency R35.0 ; Urinary urgency R39.15 ; History of UTI Z87.440 ; History of smoking Z87.891 ; Chronic anticoagulation Z79.01 and Abnormal urinalysis R82.90 [facility] [employer], [facility] [address] [place] [address] 08/20/2023 STEPHEN WATSON Lesion of bladder N3 2.9 ; OAB (overactive bladder) N32.81 ; Urinary frequency R35.0 ; Urinary urgency R39.15 ; History of UTI Z87.440 ; History of smoking Z87.891 ; Chronic anticoagulation Z79.01 and Abnormal urinalysis R82.90 [facility] [employer] [facility] [address] [place] [address], [place] [address] 09/24/2023 WHITNEY DIOP Urgency of urination R39.15 ; OAB (overactive bladder) N32.81 and Frequency of urination R35.0 [facility] [employer], [facility] [address] [place] [address], [place] [address] 08/04/2023 STEPHEN WATSON Bladder tumor D49.4 [facility] [employer] [facility] [address] [place] [address] 09/08/2023 STEPHEN WATSON OAB (overactive blad keren) N32.81 ; Urgency of urination R39.15 and Frequency of urination R35.0 Assessments Encounter Date Diagnosis (ICD Code) Assessment Notes Treatment Notes Treatment Clinical Notes 04/08/2023 Urinary frequency (ICD-10 - R35.0) 07/02/2023 Recurrent UTI (ICD-10 - N39.0) 07/02/2023 Lesion of bladder (ICD-10 - N32.9) 07/28/2023 Lesion of bladder (ICD-10 - N32.9) 07/28/2023 Preoperative examination (ICD-10 - Z01.818) 08/04/2023 Bladder tumor (ICD-10 - D49.4) 07/28/2023 Preop testing (ICD-10 - Z01.818) 08/20/2023 Lesion of bladder (ICD-10 - N32.9) 08/20/2023 OAB (overactive bladder) (ICD-10 - N32.81) 09/08/2023 Urgency of urination (ICD-10 - R39.15) 09/08/2023 OAB (overactive bladder) (ICD-10 - N32.81) 08/31/2023 Preop testing (ICD-10 - Z01.818) 09/24/2023 Urgency of urination (ICD-10 - R39.15) 09/24/2023 OAB (overactive bladder) (ICD-10 - N32.81) Pt doing well postoperatively without complication. She was hoping for more improvement than she received, but she has had well over a 50% improvement in symptoms. UA is clear. Emtpying well. Will have her RTC in with UA/PVR for reassessment. 09/24/2023 Frequency of urination (ICD-10 - R35.0) 08/31/2023 Essential (primary) hypertension (ICD-10 - I10) 09/08/2023 Frequency of urination (ICD-10 - R35.0) 08/20/2023 Urinary frequency (ICD-10 - R35.0) 07/28/2023 Essential (primary) hypertension (ICD-10 - I10) 07/02/2023 Urinary frequency (ICD-10 - R35.0) 07/28/2023 Urinary frequency (ICD-10 - R35.0) 04/08/2023 Urinary urgency (ICD-10 - R39.15) 07/02/2023 Urinary urgency (ICD-10 - R39.15) 04/08/2023 Anxiety about health (ICD-10 - F41.8) 07/28/2023 Urinary urgency (ICD-10 - R39.15) 08/20/2023 Urinary urgency (ICD-10 - R39.15) 08/31/2023 Lesion of bladder (ICD-10 - N32.9) 08/20/2023 History of UTI (ICD-10 - Z87.440) 07/28/2023 History of UTI (ICD-10 - Z87.440) 07/02/2023 Anxiety about health (ICD-10 - F41.8) 04/08/2023 History of UTI (ICD-10 - Z87.440) 04/08/2023 History of smoking (ICD-10 - Z87.891) 07/28/2023 History of smoking (ICD-10 - Z87.891) 07/02/2023 History of UTI (ICD-10 - Z87.440) 08/20/2023 History of smoking (ICD-10 - Z87.891) 08/20/2023 Chronic anticoagulation (ICD-10 - Z79.01) 07/28/2023 Chronic anticoagulation (ICD-10 - Z79.01) 07/02/2023 History of smoking (ICD-10 - Z87.891) 07/28/2023 Abnormal urinalysis (ICD-10 - R82.90) 07/02/2023 OAB (overactive bladder) (ICD-10 - N32.81) 08/20/2023 Abnormal urinalysis (ICD-10 - R82.90) 04/08/2023 Other UA is clear tod ay, PVR of 8 mL. She reports urinary frequency, urgency and occasional dysuria only improved while taking Macrobid. I will send for PCR to rule out low growth bacteria is causing irritation, call with results and treat as indicated. Recommended that she avoid all bladder irritants. Handout given today. I will request records from Dr. Amin's office and also [facility]. She reports trying oxybutynin with no improvement, then having severe hypertension on Myrbetriq. Offered trial of Gemtesa. Administration side effect profile reviewed. Samples given today. She will return to clinic in 4 weeks for symptom reassessment, and we will go ahead and get her on schedule for cystoscopy. All questions that were asked were answered. Patient is satisfied with his care. 07/28/2023 Other Patient schedul ed for cystoscopy, bladder biopsy and fulguration on 08/04/[address] Watson. How the procedure was performed was discussed along with risks/benefits/altern atives and postprocedural expectations. Patient is on Eliquis, and understands to hold x 3 days prior to procedure. Denies problems with anesthesia in the past, no new medications or diagnoses since last visit. Patient has presurgical testing at [facility] today. Urine sent for PCR/culture and we will treat as indicated preoperatively. She states Macrobid has worked the best for her in the past, I will start her prophylactically today. All questions that were asked were answered and elects to proceed with procedure as scheduled. Patient will RTC postoperatively and is satisfied with plan of care. 08/20/2023 Other Chronic bladder inflammation - ['n30.90'] - the patient will be treated with bladder botox. this treatment will be done at the surgery center. if the botox treatment is successful, it can be continued. the patient will be put on antibiotics after the botox treatment to mitigate the risk of urinary tract infections. Frequent urination - ['r35.0'] - the patient will be treated with bladder botox. this treatment will be done at the surgery center. if the botox treatment is successful, it can be continued. the patient will be put on antibiotics after the botox treatment to mitigate the risk of urinary tract infections. Raised blood pressure - ['r03.0'] - the patient's blood pressure will be monitored. the patient's medications will be adjusted as necessary to avoid raising her blood pressure. Plan Of Treatment Pending Test Test Name Order Date CULTURE, URINE, ROUTINE (395) 07/28/2023 Basic Metabolic Panel 08/31/2023 CBC w/ Auto Diff 08/31/2023 UA Reflex -- [id number] 08/31/2023 Electrocardiogram, 12 Lead Tracing-[id number] 07/28/2023 Next Appt Details Provider Name:WHITNEY Hardwick VICTORINA HARRELL, 12/24/2023 03:20:00 PM, [address] [place], [address], Insurance Providers Payer Name Payer Address Payer Phone Subscriber Number Group Number Insured Name Patient Relationship to Insured Coverage Start Date Coverage End Date [place] [address] [address] [place], [place] [id number] Trish Rocha Self - patient is the insured [facility] Medicare Supplement [address] [place], [place] [id number] Trish Rocha Self - patient is the insured Medical (General) History Medical History History ICD Code hemorrhoids hypertension back trouble recurrent bladder infections arthritis Surgical History Surgery Date(Month/Year) X 3 tonsillectomy Hospitalization History Reason Date(Month/Year) rapid heart beat/afib 06/2023 High BP 09/2022 hospitalized for High bp 04/2022
[2023-12-09] VITALS (22 sets, daily range): BP systolic 89–152; BP diastolic 39–87; PULSE 46–77; RESP 12–27; TEMP 36.3–36.6; O2SAT 91–100; BMI 27.3
--- OUTSIDE RECORDS SUMMARY | 2023-12-09 10:31 | XMS_ITS ---
Author Name Unknown Organization [facility], [employer] Address [address] [place] [address] Care Team Providers Care Insurance Actuary Name Role Phone Obey Rose Primary Care Provider STEPHEN Pina [phone] REASON FOR VISIT Cysto Botox @ [facility] Encounters Encounter Location Date Provider Diagnosis [facility] [employer] [address] [place] [address] 09/08/2023 STEPHEN SARMIENTO OAB (overactive bladder) N32.81 [...] SHARRI, 12/24/2023 03:20:00 PM, [address] [place], [address], Progress Notes * Trish SWAN DDOB: [birth year] (67 yo F)Acc No.[id number]:09/08/2023 Patient:?Trish SWAN Provider:?STEPHEN SARMIENTO MD :1955???Age:67 Y???Sex:Female D ate:09/08/2023 Address:[address] [place] [address] [address] [place], [place] [address] Pcp:Obey Rose * Billing Information: * Visit Code:? * Procedure Codes:? 01775 CYSTOSCOPY CHEMODENERVATION. * Sign off status: Completed true * Provider:?STEPHEN SARMIENTO MD Date:?11/2023 Generated for Breezy lopez/Darling/eTransmitting on:?12/09/2023 10:31 AM CDT
--- OUTSIDE RECORDS SUMMARY | 2023-12-09 10:31 | XMS_ITS ---
Author Name Unknown Organization [facility] Address [address] [place] [address] Care Team Providers Care Recreational Therapy Technician Name Role Phone Obey Rose Primary Care Provider STEPHEN Pina Unavailable [phone] ADRIENNE DIOP Unavailable [phone] Allergies No Known Allergies Results Component Value Reference Range Notes Urinalysis, Routine Reviewed date:09/24/2023 02:42:22 PM Interpretation: Performing Lab: Notes/Report: Urine-Color yellow Appearance clear Glucose - Bilirubin - Ketones - Specific [place] 1.010 Occult Blood - pH 6.5 Urine [...] mL Encounters Encounter Location Date Provider Diagnosis [facility], [facility] [address] [place] [address] 09/24/2023 ADRIENNE DIOP Urgency of urination R39.15 [...] HARRELL, 12/24/2023 03:20:00 PM, [address] [facility] [place], [address], Progress Notes * SOSA Trish DDOB: [birth year] (67 yo F)Acc No.[id number]:09/24/2023 Patient:?Trish SWAN Provider:?Adrienne Diop APRN :1955???Age:67 Y???Sex:Female D ate:09/24/2023 Address:[address] [place] [address] [place], [place] [id number] Pcp:Obey Rose Subjective: * Chief Complaints: * ???2-4 wk postop w/ua/pvr * HPI: ???:?Ms. Rivera is a 67-year-old female patient of Dr. Watson who established in 04/2023 with complaint of urinary frequency. She had been seen by Dr. Amin and [facility] in [place] in the past few years for same [...] ?Bilirubin - * ?Ketones - * ?Specific [place] 1.010 * ?Occult Blood - * ?pH [...] with UA/PVR for reassessment. ?? * Procedure Codes:?55369 URINA LYSIS, AUTO, W/O [id number] US URINE CAPACITY MEASURE * Follow Up:?3m with UA/PVR * Billing Information: * Visit Code:? 85188 Office Visit, Est Pt., Level 3. * Procedure Codes:? 74955 URINALYSIS, AUTO, W/O SCOPE. 52559 US URINE CAPACITY MEASURE. * Sign off status: Completed true * Provider:?Adrienne Edwardschens, [employer] ADMINISTRATOR Date:? Generated for Breezy lopez/Darling/Marcyitting on:?12/09/2023 10:31 AM CDT History and Physical Notes * Examination Category Sub-Category Detail Notes General Examination General appearance: alert, w ell-nourished and in no acute distress Chest: resp even and nonlab ored Abdomen: soft, NT, ND Female genitourinary: No CVAT, No SPT, n o bladder distention
--- OUTSIDE RECORDS SUMMARY | 2023-12-09 10:32 | XMS_ITS ---
Author Name Unknown Organization [email or web address], [facility] Address [address] [facility] [place] [address] Care Team Providers Care Eap Clinician Name Role Phone Obey Rose Primary Care Provider STEPHEN Pina [phone] REASON FOR VISIT Surgery Lab Orders Encounters Encounter Location Date Provider Diagnosis [email or web address], [facility] [address] [facility] [place] [address] 08/31/2023 STEPHEN SARMIENTO Preop testing Z01.81 8 [...] w/ Auto Diff 08/31/2023 UA Reflex -- [id number] 08/31/2023 Next Appt Details Provider Name:WHITNEY HARRELL, 12/24/2023 03:20:00 PM, [address] [place], [address], Progress Notes * Trish SWAN DDOB: [birth year] (67 yo F)Acc No.[id number]:08/31/2023 Patient:?Trish SWAN :1955???Age:67 Y???Sex:Female Address:[address] [place] [address] [place] [address] Subjective: * Chief Complaints: * ???Surgery Lab [...] Diff 3.?Lesion of bladder?LAB: UA Reflex -- [id number] * Procedure Codes:? * true * Date:? Generated for Breezy lopez/Darling/eTransmitting on:?12/09/2023 10:31 AM CDT
--- OUTSIDE RECORDS SUMMARY | 2023-12-09 10:32 | XMS_ITS | Patient Health Record ---
Author Name Unknown Organization [facility], [facility] Address [address] [place] [address] Care Team Providers Care Vocational Training Director Name Role Phone Obey Rose Primary Care Provider UnavailSTEPHEN Leahy Unavailable [phone] WHITNEY DIOP Unavailable [phone] ABILIO MENESES Unavailable [phone] Allergies No Known Allergies Results Component Value Reference Range Notes Urinalysis, Routine Reviewed date:07/28/2023 01:38:19 PM Interpretation: Performing Lab: Notes/Report: Urine-Color yellow Appearance clear Glucose - Bilirubin - Ketones - Specific [place] 1.010 Occult Blood - pH 6.5 Urine Protein - Urobilinogen,Semi-Qn - Nitrite, Urine POS WBC Esterase trace Urinalysis, Routine Reviewed date:09/24/2023 02:42:22 PM Interpretation: Performing Lab: Notes/Report: Urine-Color yellow Appearance clear Glucose - Bilirubin - Ketones - Specific [place] 1.010 Occult Blood - pH 6.5 Urine Protein - Urobilinogen,Semi-Qn - Nitrite, Urine - WBC Esterase - Urinalysis, Routine Reviewed date:04/08/2023 03:46:57 PM Interpretation: Performing Lab: Notes/Report: Urine-Color yellow Appearance clear Glucose - Bilirubin - Ketones - Specific [place] 1.010 Occult Blood - pH 6.0 Urine Protein - Urobilinogen,Semi-Qn - Nitrite, Urine - WBC Esterase - Urinalysis Gross Exam - Urinalysis, Routine Reviewed date:07/02/2023 03:26:18 PM Interpretation: Performing Lab: Notes/Report: Urine-Color yellow Appearance clear Glucose - Bilirubin - Ketones - Specific [place] 1.005 Occult Blood - pH 7.0 Urine Protein - Urobilinogen,Semi-Qn - Nitrite, Urine - WBC Esterase - Urinalysis Gross Exam - UTI Pathogen Panel PCR Reviewed date:04/09/2023 01:33:56 PM Interpretation: Performing Lab: Notes/Report: Basic Metabolic Panel Reviewed date:08/09/2023 06:30:19 PM Interpretation: Performing Lab: Notes/Report: Testing performed at [facility], [address] [place] [address] [place] [address]. CLIA ID#: [id number] P-ipvmra-c-benzoquinone imine (NAPQI) is a metabolite of acetaminophen, NAPQI concentrations of apparoximately 10 mg/L correlation to toxic levels of acetaminophen demonstrates a greater than or equil to 10% change in results. NAPQI concentrations greater than this may lead to falsely depressed results for patient samples. Calculation performed from GFR calculator provided by the [employer]. Glomerular Filtration rate(GRF) is the best overall index of kidney function. Normal GFR varies according to age,sex, body size, and declines with age. The National Kidney Foundation recommends using the CKD-EPI Creatinine Equation(2020) to estimate GFR. Testing performed at: [address] [place] [address] CLIA ID [id number] Use of this assay is not recommended for patients undergoing treatment with phenindione, due to the potential for falsely depressed results. Sodium 133 136-145 MMOL/L Potassium 4.0 3.5-5.1 [...] Interpretation: Performing Lab: Notes/Report: Testing performed at: [address] [place] [address] CLIA ID [id number] WBC 6.3 4.5-11.0 X10'3 RBC 3.51 4.00-5.20 X10'6 Hgb 10.4 12.0-16.0 G/DL Hct 32.7 36.0-46.0 % MCV 93.2 80.0-100.0 FL MCH 29.6 27.0-31.0 PG MCHC 31.8 31.0-37.0 G/DL Platelet 354 150-400 X10'3 RDW-SD 44.8 35.0-49.0 FL RDW-CV 13.1 12.2-15.6 % MPV 8.8 9.2-12.0 FL Neutro Auto% 65.5 42.0-75.0 % Lymph Auto% 24.4 20.0-51.0 % [place] Auto% 9.0 1.7-9.3 % Eos Auto% .6 .0-6.0 % Baso Auto% 0.3 0.0-1.0 % Imm Gran% .2 .0-.4 % Neutro Abs 4.13 .80-7.70 Absolute Neutrophil Count 4130 Lymph Abs 1.54 .10-4.10 [place] Abs .57 .20-1.00 Eos Abs .04 .00-.40 Baso Abs .02 .00-.10 Imm Gran Abs .01 .00-.10 NRBC# .00 .00-.20 X10'3 NRBC% .00 .00-.20 /100 intact WBC's Urinalysis, Routine Reviewed date:08/20/2023 02:08:10 PM Interpretation: Performing Lab: Notes/Report: Urine-Color yellow Appearance clear Glucose - Bilirubin - Ketones - Specific [place] 1.015 Occult Blood - pH 5.5 Urine Protein - Urobilinogen,Semi-Qn - Nitrite, Urine - WBC Esterase - Reason For Referral No Information Medications Medication [...] Problem Status W/U Status Risk Notes Problem 98501128 Essential (primary) hypertension (I10) Active confirmed Problem Use of anticoagulation (543078625) Chronic anticoagulation (Z79.01) Active confirmed Problem Anxiety about health (289260125) Anxiety about health (F41.8) Active confirmed Problem Urinary frequency (800563989) Urinary frequency (R35.0) Active confirmed Problem Recurrent urinary tract infection (551791993) Recurrent UTI (N39.0) Active confirmed Problem Lesion of bladder (866626168) Lesion of bladder (N32.9) Active confirmed Problem History of urinary tract infection (8906985839965) History of UTI (Z87.440) Active confirmed Problem [...] mL Encounters Encounter Location Date Provider Diagnosis [facility] [address] [place] [address] 04/08/2023 ABILIO MENESES Urinary frequency R3 5.0 ; Urinary urgency R39.15 ; Anxiety about health F41.8 ; History of UTI Z87.440 and History of smoking Z87.[address] [facility] [address] [place] [address] 07/02/2023 STEPHEN WATSON Recurrent UTI N39.0 ; Lesion of bladder N32.9 ; Urinary frequency R35.0 ; Urinary urgency R39.15 ; Anxiety about health F41.8 ; History of UTI Z87.440 ; History of smoking Z87.891 and OAB (overactive bladder) N32.[address] [facility] [address] [place] [address] 07/28/2023 ABILIO MENESES Preoperative examina tion Z01.818 ; Lesion of bladder N32.9 ; Urinary frequency R35.0 ; Urinary urgency R39.15 ; History of UTI Z87.440 ; History of smoking Z87.891 ; Chronic anticoagulation Z79.01 and Abnormal urinalysis R82.[address] [facility] [address] [place] [address] 08/04/2023 STEPHEN WATSON Bladder tumor D49.[address] [facility] [address] [place] [address] 08/20/2023 STEPHEN WATSON Lesion of bladder N3 2.9 ; OAB (overactive bladder) N32.81 ; Urinary frequency R35.0 ; Urinary urgency R39.15 ; History of UTI Z87.440 ; History of smoking Z87.891 ; Chronic anticoagulation Z79.01 and Abnormal urinalysis R82.[address] [facility] [address] [place] [address] 09/08/2023 STEPHEN WATSON OAB (overactive blad keren) N32.81 ; Urgency of urination R39.15 and Frequency of urination R35.0 [facility] [address] [place] [address] 09/24/2023 WHITNEY DIOP Urgency of urination R39.15 ; OAB (overactive bladder) N32.81 and Frequency of urination R35.0 [facility] [address] [place] [address] 02/25/2023 STEPHEN WATSON [facility] [address] [place] [address] 05/11/2023 ABILIO MENESES [facility] [address] [place] [address] 07/15/2023 STEPHEN WATSON [facility] [address] [place] [address] 07/16/2023 STEPHEN WATSON [facility] [address] [place] [address], [place] [address] 07/20/2023 STEPHEN WATSON [facility] [address] [place] [address] 07/28/2023 STEPHEN WATSON Preop testing Z01.81 8 and Essential (primary) hypertension I10 [facility] [address] [place] [address], [place] [address] 07/30/2023 STEPHEN WATSON [facility] [address] [place] [address], [place] [address] 08/31/2023 STEPHEN WATSON Preop testing Z01.81 8 [...] records from Dr. Amin's office and also [facility]. She reports trying oxybutynin with no improvement, [...] last visit. Patient has presurgical testing at [facility] today. Urine sent for PCR/culture and we [...] w/ Auto Diff 08/31/2023 UA Reflex -- [id number] 08/31/2023 Electrocardiogram, 12 Lead Tracing-[id number] 07/28/2023 Next Appt Details Provider Name:WHITNEY Hardwick VICTORINA HARRELL, 12/24/2023 03:20:00 PM, [address] [place], [address], Insurance Providers Payer Name Payer Address Payer Phone Subscriber Number Group Number Insured Name Patient Relationship to Insured Coverage Start Date Coverage End Date [place] [address] [address] [place], [place] [id number] Trish Rocha Self - patient is the insured [facility] Medicare Supplement [address] [place], [place] [id number] Trish Rocha Self - patient is the insured Medical (General) History Medical History History ICD Code hemorrhoids hypertension back trouble recurrent bladder infections arthritis Surgical History Surgery Date(Month/Year) X 3 tonsillectomy Hospitalization History Reason Date(Month/Year) rapid heart beat/afib 06/2023 High BP 09/2022 hospitalized for High bp 04/2022
[2023-12-09] MEDS: acetaminophen 1,000 MG/100 ML PIGGYBACK 400 MG IV (11:13)
[2023-12-09] MEDS: ketorolac 30 mg/mL INJ IVP (11:14)
[2023-12-09] MEDS: lactated ringers 500 ML IV (11:21)
[2023-12-09] MEDS: HYDROcodone-acetaminophen 5-325 mg Tablet 1 TAB PO (11:30)
[2023-12-09] MEDS: fentaNYL 50 mcg/mL INJ 2mL IVP ×3 (11:40→17:04)
[2023-12-09 11:43] LABS: Anion Gap 12.8 (5-19); Blood Urea Nitrogen 14 mg/dL (8-23); Calcium 9.2 mg/dL (8.5-10.5); Carbon Dioxide 25 mmol/L (22-29); Chloride 92 mmol/L (98-107); Creatinine Clr Calc Pharmacy 59.2366; Glomerular Filtration Rate 83.5 mL/min (90-130); Glucose 101 mg/dL (65-115); Osmolality Calculated 263 mOsm/kg (285-295); Potassium 3.8 mmol/L (3.5-5.1); Sodium 126 mmol/L (136-145)
[2023-12-09] MEDS: sodium chloride 0.9% 1,000 ML 30 ML IV (11:44)
--- NOTE | 2023-12-09 12:31 | ANES.PREANE2 ---
Pre-Anesthetic Assessment Height/Weight: Height 1.55 m Weight 65.771 kg Temp Pulse Resp BP Pulse Ox O2 Del Method 97.9 F 63 16 152/74 99 Room Air 12/09/23 10:51 12/09/23 10:51 12/09/23 11:40 12/09/23 10:51 12/09/23 11:40 12/09/23 10:51 Operation Date: 12/09/23 12:50 Proposed Procedures p Total Reverse Shoulder Arthroplasty(Left) - Jayjay Janna, Familial anesthetic complications: None Was Beta Crystal taken within 24 hours: N/A Was Clonidine taken within 24 hours: N/A Last intake: Intake Last Liquid Date 12/08/23 Last Liquid Time 20:00 Last Solid Date 12/08/23 Last Solid Time 20:00 Social No alcohol and No tobacco Exam alert, oriented x 3, clear to auscultation bilaterally and regular rate & rhythm Airway Mallampati: Class II Dentition: other (no teeth) Pulmonary Pulmonary HTN CV/HEM Atrial Fibrillation, Arrythmia, Congestive Heart Failure and Hypertension HEAD MRI 11/16/23 1. No evidence of restricted diffusion to suggest acute ischemia. 2. Mild small vessel changes with mild parenchymal volume loss. 3. 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 Chronic lacunar infarct RIGHT cerebellum. 4. No hemosiderin. 5. No abnormal gadolinium enhancement. ECHO 11/15/23 Limited echocardiogram performed to assess LV systolic function. LV systolic function is normal with EF of 60 to 65%. No regional wall motion abnormalities are seen. EKG 11/15/23 SINUS BRADYCARDIA PROLONGED QT INTERVAL Compared to ECG 11/14/2023 20:59:58 Prolonged QT interval now present Sinus rhythm no longer present Myocardial infarct finding no longer present ECHO 10/23/23 Normal left ventricular size and systolic function, EF 66% Mild Carnithan developed into hypertrophy. No gross wall motion abnormalities.Grade III/IV diastolic dysfunction (restrictive filling pattern), severely elevated filling pressures. Moderately increased left atrial size. Moderate mitral annular calcification. Thickened aortic valve. Mild tricuspid valve regurgitation. Severe pulmonary hypertension with a mean pulmonary artery pressure of 59 mmHg There is no pericardial effusion. There are no intracardiac masses. No similar previous studies are available for comparison CARDIAC EVENT MONITOR 06/30/23 1. The baseline rhythm was found to be normal sinus with an overall average heart rate of 61 bpm. Rare ventricular and occasional supraventricular ectopics. No symptomatic tachy or parminder arrhythmias. No significant pauses. 2. The above-mentioned symptoms are found to be associated with normal sinus rhythm 3. No similar previous studies are available for comparison SESTAMIBI STRESS TEST 11/05/22 1. No significant EKG changes with the LexiScan infusion 2. No LexiScan induced chest pain or cardiac arrhythmia 3. Normal blood pressure and heart rate response to Lexiscan infusion. MYOCARDIAL PERFUSION SCAN 11/05/22 Myocardial perfusion imaging revealing a small area of minimal to moderately decreased tracer uptake in the mid inferolateral, apical lateral and apical inferior regions with some reversibility suggesting myocardial scarring in the distribution of the right coronary artery and circumflex artery with a very small areas of malcolm-infarction ischemia. 2. Normal LV ejection fraction of 90% 3. LV wall motion analysis revealing no gross wall motion abnormalities. 4. Normal LV wall GI Gastroesophageal Reflux Disease Metabolic Thyroid Disease Anesthetic Plan ASA status: 4 Anesthesia: General and Regional (specify below) Risk of > 500 ml blood loss (7ml/kg in children): No Medications/Allergies Home Medications Medication Instructions Recorded Confirmed Last Taken Type famotidine 20 mg tablet (Pepcid) 20 mg PO BID #180 tabs 06/10/23 12/08/23 12/08/23 Rx hydralazine 50 mg tablet 75 mg (1.5 x 50 mg) PO TID #90 tabs 08/04/23 12/08/23 12/08/23 Rx levothyroxine 25 mcg tablet 50 mcg (2 x 25 mcg) PO DAILY #90 08/04/23 12/08/23 12/08/23 Rx tabs lisinopril 40 mg tablet 40 mg PO DAILY #30 tabs 08/31/23 12/08/23 12/08/23 Rx loratadine 10 mg tablet (Claritin) 10 mg PO DAILY #30 tabs 09/09/23 12/08/23 12/08/23 Rx left arm sling #1 ea 09/17/23 11/24/23 Unknown Rx escitalopram oxalate 10 mg tablet 10 mg PO DAILY #60 tabs 10/07/23 12/08/23 12/08/23 Rx atorvastatin 80 mg tablet 80 mg PO BEDTIME 10/23/23 12/08/23 12/07/23 History fluticasone propionate 50 2 spray intranasal DAILY #16 grams 10/23/23 12/08/23 12/08/23 Rx mcg/actuation nasal spray,suspension nifedipine 60 mg tablet,extended 60 mg PO DAILY 10/23/23 12/08/23 12/08/23 History release 24 hr quetiapine 100 mg tablet (Seroquel) 100 mg PO BEDTIME 10/23/23 12/08/23 12/08/23 History trazodone 100 mg tablet 100 mg PO BEDTIME 10/23/23 12/08/23 12/08/23 History apixaban 5 mg tablet (Eliquis) 5 mg PO Q12H #60 tabs 11/17/23 12/08/23 12/07/23 Rx aspirin 81 mg tablet,delayed 81 mg PO DAILY #30 tabs 11/17/23 12/08/23 12/04/23 Rx release carvedilol 12.5 mg tablet 12.5 mg PO BID #60 tabs 11/17/23 12/08/23 12/08/23 Rx hydrochlorothiazide 25 mg tablet 25 mg PO DAILY #30 tabs 11/17/23 12/08/23 12/08/23 Rx ferrous sulfate 325 mg (65 mg 325 mg PO DAILY #30 tabs 11/19/23 12/08/23 12/08/23 Rx iron) tablet hydrocodone 5 mg-acetaminophen 325 1 tab PO Q8H PRN pain 30 days #90 11/24/23 12/08/23 12/08/23 Rx mg tablet tabs magnesium oxide 400 mg (241.3 mg 400 mg PO BEDTIME 12/08/23 12/08/23 12/08/23 History magnesium) tablet Allergies Allergy/AdvReac Type Severity Reaction Status Date / Time No Known Drug Allergies Allergy Unknown Verified 12/09/23 10:51 Current Medications Generic Name Dose Route Start Last Admin Trade Name Freq PRN Reason Stop Dose Admin Fentanyl 50 mcg 12/09/23 10:40 12/09/23 11:40 Fentanyl 50 Mcg/Ml Inj 2ml IVP 50 mcg Q10M PRN Administration Preop Pain Sodium Chloride 1,000 mls @ 30 mls/hr 12/09/23 10:45 12/09/23 11:44 Sodium Chloride 0.9% IV 12/10/23 10:44 30 mls/hr .Q24H KARLA Administration PFSH Anesthesia Medical History Right-sided lacunar infarction Severe pulmonary hypertension Diastolic heart failure On Coumadin for atrial fibrillation Elevated d-dimer Elevated troponin Dyspnea Hypothyroidism Hyponatremia Atrial fibrillation with RVR Atrial fibrillation with RVR Dehydration Hyponatremia Altered mental status Subacromial impingement of left shoulder Rotator cuff tear, left Anemia Bipolar 2 disorder Anxiety Diabetes Hypercholesterolemia Syncope Urgency of urination Hypertension Surgical History Hx of section x 3 Hx of bilateral cataract extraction H/O gastric bypass Family History Grandmother Cancer Hyperlipidemia Hypertension Mother Hypertension CAD (coronary artery disease) unknown age of onset Denies family history of Diabetes Clotting disorder Dementia Chronic kidney disease (CKD) Suicide Anesthesia complication Bleeding disorder Lung disease Stroke Social History Smoking and tobacco/nicotine status: unknown if used tobacco/nicotine Alcohol intake: never Substance/Drug Use: never Marital status: Data Anesthesia 12/09/23 11:10 12/09/23 11:10 BMP 12/09/23 11:10 Sodium 126 L Potassium 3.8 Chloride 92 L Carbon Dioxide 25 BUN 14 Creatinine 0.7 Glucose 101 Calcium 9.2 Blood Bank 12/09/23 11:10 Blood Type O Positive Rho(D) Type Rh positive Antibody Screen Negative Cardiac Studies: Echocardiogram 10/23/23 Echocardiogram Limited Views 11/15/23 Sestamibi Stress Test (Cardiology) 11/05/22 Cardiac Event Monitor 06/30/23
--- NOTE | 2023-12-09 13:02 | P.HP_ITS ---
Same Day Surgery H&P Indication for Procedure/HPI DATE OF PROCEDURE: December 09, 2023 CHIEF COMPLAINT/INDICATIONFOR SURGICAL PROCEDURE: Left shoulder rotator cuff arthropathy, glenohumeral joint arthritis PREOP DIAGNOSIS: Left shoulder rotator cuff arthropathy, glenohumeral joint arthritis PLANNED PROCEDURE: Operation Date: 12/09/23 12:50 Proposed Procedures p Total Reverse Shoulder Arthroplasty(Left) - Jayjay Saldivar, Medications/Allergies* Home Medications Medication Instructions Recorded Confirmed Type atorvastatin 80 mg tablet 80 mg PO BEDTIME 10/23/23 12/08/23 History nifedipine 60 mg tablet,extended 60 mg PO DAILY 10/23/23 12/08/23 History release 24 hr quetiapine 100 mg tablet (Seroquel) 100 mg PO BEDTIME 10/23/23 12/08/23 History trazodone 100 mg tablet 100 mg PO BEDTIME 10/23/23 12/08/23 History magnesium oxide 400 mg (241.3 mg 400 mg PO BEDTIME 12/08/23 12/08/23 History magnesium) tablet Allergies/Adverse Reactions Allergy/AdvReac Type Severity Reaction Status Date / Time No Known Drug Allergies Allergy Unknown Verified 12/09/23 10:51 Current Medications: Generic Name Dose Route Start Last Admin Trade Name Freq PRN Reason Stop Dose Admin Fentanyl 50 mcg 12/09/23 10:40 12/09/23 11:40 Fentanyl 50 Mcg/Ml Inj 2ml IVP 50 mcg Q10M PRN Administration Preop Pain Sodium Chloride 1,000 mls @ 30 mls/hr 12/09/23 10:45 12/09/23 11:44 Sodium Chloride 0.9% IV 12/10/23 10:44 30 mls/hr .Q24H KARLA Administration Pertinent History/Comorbid Conditions* Medical History (Updated 11/18/23 @ 00:01 by FRANCESCA Martinez) Right-sided lacunar infarction Severe pulmonary hypertension Diastolic heart failure On Coumadin for atrial fibrillation Elevated d-dimer Elevated troponin Dyspnea Hypothyroidism Hyponatremia Atrial fibrillation with RVR Atrial fibrillation with RVR Dehydration Hyponatremia Altered mental status Subacromial impingement of left shoulder Rotator cuff tear, left Anemia Bipolar 2 disorder Anxiety Diabetes Hypercholesterolemia Syncope Urgency of urination Hypertension Surgical History (Updated 10/05/23 @ 19:26 by Sulaiman Melton MD) Hx of section x 3 Hx of bilateral cataract extraction H/O gastric bypass Family History (Updated 07/30/21 @ 14:24 by Nydia Forde RN) CAD (coronary artery disease) Mother unknown age of onset Hyperlipidemia Grandmother Cancer Grandmother Hypertension Grandmother Mother Denies family history of Diabetes Clotting disorder Dementia Chronic kidney disease (CKD) Suicide Anesthesia complication Bleeding disorder Lung disease Stroke Social History Smoking and tobacco/nicotine status: unknown if used tobacco/nicotine Alcohol intake: never Substance/Drug Use: never Marital status: Pertinent Exam Findings alert, oriented x 3, operative site marked and procedure specific exam findings Please refer to detailed orthopedic examination on 10/27/2023: Left shoulder--exam limited due to sling and pain in shoulder. No visible deformity seen. Patient is diffuse tenderness to palpation about the left shoulder. Given recent histories of instability as well as patient's pain and guarding inability to fully access range of motion or strength testing. Sensation hand intact. Radial pulse 2+. Recommendations Surgery/Procedure today Other Plans: Plan to proceed to the OR today for a left reverse total shoulder arthroplasty. Patient's went through the preoperative clearance process been medically optimized. She recently had a bout of hypertension urgency this has been addressed and cleared to proceed by her primary care provider on 11/24/2023. She had no change in her overall health since then. At this point time she has evidence of multiple high-grade rotator cuff tears with complete loss of the subacromial space as well as advanced degeneration the glenohumeral joint. As result through shared decision making she elects proceed with left reverse total shoulder arthroplasty. She understands the ins and outs of the procedure, the risk benefits complication alternatives surgery and through shared decision- making elects proceed with surgical intervention. All questions have been answered at this time. Coding Level of Care Code Acute Code for Mayela Jacobsen
--- NOTE | 2023-12-09 13:10 | ANES.PROC ---
Anesthesia Procedures Procedure/Date: 12/09/23 Nerve Block ^: Nerve Block 1: Main Anesthesia: general anesthesia Time Out Performed: Yes Consent: requested by attending/covering physician, from patient, from other, risks and benefits reviewed and patient agrees to proceed Nerve block location: interscalene (Low L ) Anesthesia monitors applied: pulse oximetry, EKG, BP cuff and oxygen Nerve block position: semi sitting Anesthetic Used: ropivicaine 0.5% (10 cc) Ultrasound used to: recognize landmarks, visualize and ID brachial plexus, in supraclavicular region and visualize and ID interscalene groove Nerve Stimulator Used?: No Interscalene/Femoral BLK: 2 stimuplex 22 g needle used for position and inplane approach, visualize local anesthetic spread and no vascular puncture identified Injection: neg aspiration of heme Patient Tolerated Procedure: well Additional Comments: Small volume used d/t review of chart with Severe Pulm HTN - to avoid more significant decrease in diaphragmatic function with larger volumes
--- NOTE | 2023-12-09 13:14 | SUR.PREOP ---
1257 block done to left shoulder with 0.05 ropivacaine 10cc only
[2023-12-09 13:20] LABS: Basophils % 0.3 %; Eosinophils # 0.1 10^3/uL (0.0-0.8); Eosinophils % 1.5 %; Hematocrit 34.2 % (36-47); Lymphocytes # 3.1 10^3/uL (0.8-4.8); Lymphocytes % 34.7 %; Mean Corpuscular HGB Conc 31.9 g/dL (30-55); Mean Corpuscular Hemoglobin 28.7 pg (27-33); Mean Platelet Volume 9.9 fL (7.4-10.4); Monocytes # 0.9 10^3/uL (0.2-0.9); Monocytes % 9.6 %; Neutrophils # 4.76 10^3/uL (1.8-7.7); Neutrophils % 53.7 %; Nucleated Red Blood Cells % 0 %; Platelet Count 409 10^3/cmm (157-399); Red Cell Distribution Width 13.8 % (12.1-15.1); White Blood Count 8.86 10^3/uL (3.29-11.43)
[2023-12-09] MEDS: ceFAZolin 2,000 MG in sodium chloride 0.9% (plus) 50 ML 100 MG IV ×2 (13:45→19:56)
[2023-12-09] MEDS: tranexamic acid 1,000 mg/10mL SDV 1000 MG IV (14:02)
[2023-12-09] MEDS: vancomycin 1,000 MG SDV 1000 MG XX (14:37)
--- NOTE | 2023-12-09 16:13 | P.BOP_ITS ---
Date of Procedure: 12/09/2023 Surgeon: Jayjay Saldivar DO Sorting Cows Worker(s): Festus Saldivar PA-C Procedure(s) performed: Left reverse total shoulder arthroplasty Findings of the procedure(s): Patient was found to have severe left shoulder rotator cuff arthropathy complete torn and retracted subscapularis and supraspinatus tendons with severe degenerative joint disease of the left shoulder with considerable superior and anterior escape instability consistent with cuff arthropathy. Patient underwent left reverse total shoulder arthroplasty without issues or complications. Estimated blood loss: 100 mL Specimen(s) removed: Glenoid reamings, humeral head resection Post-operative diagnosis: Left shoulder rotator cuff arthropathy
--- NOTE | 2023-12-09 16:15 | P.OP_ITS ---
Operative Report Date of procedure: December 09, 2023 Surgeon: Jayjay Saldivar DO Train Examiner: Festus Saldivar PA-C: PA was necessary for assistance in this case with shoulder positioning to execute the procedure,Retraction & protection of neurovascular structures assistance with instrumentation, as well as implant fixation when necessary, assist with wound closure and dressing application. Procedure: Preop Diagnosis?left shoulder shoulder degenerative joint disease Post-op diagnosis: same, rotator cuff arthropathy left shoulder Procedure done:? Left?reverse?total shoulder arthroplasty Implants:? [employer]?reverse?total shoulder arthroplasty comprehensive system Size 11 mm micro humeral stem 36 mm glenosphere diameter standard offset Glenosphere mini baseplate Central screw?6.5 mm by 30 mm Fixed locking screws (25 mm, 20 mm, 15 mm, 15 mm) Standard mini humeral tray with +3 mm polyethylene thickness Surgeon:? Jayjay Saldivar DO Estimated blood loss:? 100 mL IV fluids:? 900 mL Urine output:? 100 mL Complications:? None Findings:? See operative report narrative Condition: stable Disposition: floor Brief History:? Pt is a pleasant 68-year-old female who is worked up in the outpatient setting for chronic left shoulder arthrtitis with chronic rotator cuff arthropathy.? Pt has failed conservative treatment and? was interested in further treatment options we talked about? continued nonoperative versus operative intervention given arthritis and cuff arthropathy on MRI would recommend a left?reverse?total shoulder arthroplasty.? Pt has been medically optimized and cleared for surgery by the anesthesia department and preop clinic.? Through shared decision-making pt like to proceed with a left?reverse?total shoulder arthroplasty.? All questions been answered at this time once again pt understands the risk benefits complication alternatives the treatment option understanding risk of surgery pt agrees to proceed.? All questions answered. Procedure:? Patient seen evaluated in the preoperative holding area.? Consent was reviewed and signed with patient once again detailed out the ins and outs of the procedure.? Correct extremity was marked.? Final questions answered.? Patient was seen evaluated by Anesthesia Department once cleared for surgery pt was taken back to the operative suite.? pt was placed in supine position all bony prominences well-padded patient was appropriate secured to the bed pt underwent anesthesia per the anesthesia department once appropriately anesthetized he was then subsequently set into a lazy beachchair position utilizing our standard OR table.? Once we confirmed appropriate positioning we then subsequently prepped and draped the left upper extremity in standard orthopedic fashion.? Final timeout performed.? Patient received appropriate preoperative antibiotics. Standard deltopectoral approach was then made just lateral to the coracoid.? I used hydrogen peroxide on skin Incision and wiped this with sterile saline for infection prophylaxis.I utilized electrocautery to maintain exact hemostasis throughout my dissection.? I subsequently identified the cephalic vein dissected this out carefully and this was taken medially with Cobell retractor and I entered the deltopectoral interval.? Next I released the clavipectoral fascia and at this point time identified the bicep Groove. This already had a empty biceps tendon with a already retracted into the lower arm bicep tendon this is then left alone.? This was then isolated and I opened up the bicipital groove within the interval taken this all the way to its insertion site.?Of note patient had complete retracted subscapularis tendon and immediately encountered the humeral head after opening up the bicipital groove. I then subsequently performed a standard medial peel and released a care to stay on bone and utilizing blunt retractor inferior and medial. I then subsequently performed a complete release in standard fashion with care to stay directly onto bone and protecting axillary nerve throughout the case.? Once standard sequential release was performed I then protected the entirety of the humeral head and subsequently began with my humeral stem prep. Canal finder was used just off the articular margin and canal centralizer was satisfactory.? I then subsequently broached up to appropriate depth and canal fit which was determined to be 11.? 11 was left on and subsequently brought in plan to guide of 30 degrees retroversion was then placed with my cutting guide pinned into appropriate position and making sure my rotation and version was appropriate once satisfactory and pinned in the place the intramedullary canal reamer was then subsequently removed and an oscillating saw was then used to p erform my humeral head resection.? This was then subsequently removed.? I then sequentially broached up to appropriate size which was a size 11 mm humeral stem with care to once again maintained my appropriate version.? Once I was satisfied with this I then placed the metal cap and left the stem in place to maintain appropriate integrity of the humeral head while performing work on the glenoid.?? Next I then placed appropriate retraction posterior inferior posterior superior as well as anterior.? I had excellent visualization of the glenoid at this point time josel my appropriate position.? I utilized electrocautery and remove the entirety of the labrum so I had full visualization of the glenoid.? I then utilized the [employer] comprehensive targeting guide within 5 degree tilt.? Central guidepin was then inserted and confirmed to be in appropriate position confirmed with preop CT plan. once satisfied with this placement I then introduced my reamer and then opened up our porous glenosphere mini baseplate this was impacted in appropriate position and rotation next I then subsequently drilled and measured my central screw and placed in appropriate length 30 mm central screw.? This had excellent fixation and purchase.? At this point time I are removed any small residual osteophytes inferiorly and at this point then I subsequently drilled measured and placed 4 locking screws circumferentially around the mini baseplate size screws were 25 mm, 20 mm, 15 mm, 15 mm.? These all had excellent fixation and I satisfied with baseplate .? Next I then opened up our glenosphere 36 diameter set this to the appropriate offset B giving us roughly 1.5 mm of offset inferiorly this was then impacted and had excellent fixation.? Utilize a tonsil closed by hand and we had appropriate fixation of the glenosphere. ?This was then subsequently removed and then I subsequently placed the appropriate trial humeral tray which was trialed with a standard offset onto my trial 11 mm humeral stem this was subsequently reduced.?Shoulder had excellent range of motion and stability had still little bit of play as result I then subsequently trialed with a +3 mm thickness and this had satisfactory range of motion and excellent stability and appropriately tension.? This was determined to be my final implant.? I then subsequently dislocate the shoulder.? I then subsequently removed the trial implantations of the humerus.? Final implants were called and open for of a size 11 micro humeral stem as well as a +3 polyethylene and mini humeral tray.? This was opened and set up appropriately on the back table.? I then subsequently impacted the micro humeral stem size 11 and appropriate position which was exact as our trial implantation once again maintaining our appropriate version that was preset and marked and then next I subsequently dried the trunnion and impacted the appropriate humeral tray with +3 mm thickness poly.? This was then subsequently reduced and had excellent fixation range of motion and stability with appropriate tensioning.? No evidence of instability was noted.? I then subsequently opened Pulsavac and thoroughly irrigated the incision with 3 L of normal saline.? I then subsequently placed a gram of vancomycin powder for infection prophylaxis.? I then subsequently closed the subcutaneous layer with 0 and 2-0 Vicryl suture a running 3-0 Monocryl was then performed of the skin edges and then reinforce the skin edges with Steri- Strips.? A DORIAN dressing was then applied.? SLing applied. Patient was then awakened from anesthesia and taken to PACU in stable condition.? Patient tolerated procedure without any complications. Disposition: Patient taken to PACU in stable condition recovering well will be admitted to the floor postoperatively internal medicine will be on board for medical management.? Patient will be nonweightbearing to the left shoulder.? Sling on in place.? Patient will receive appropriate postoperative pain medication DVT prophylaxis on the floor.? Will receive appropriate discharge structure as well as pain medication DVT prophylaxis.? We will work with PT/OT.? planning for DC home with home health at discharge. Patient to follow-up with me in the office in 2 weeks.
--- NOTE | 2023-12-09 16:27 | XRR_ITS ---
PROCEDURE INFORMATION: Exam: XR Left Shoulder Exam date and time: 12/09/2023 4:55 PM Age: 68 years old Clinical indication: Other: Post op shoulder left; Prior surgery; Surgery date: Post-operative (0-2 days); Additional info: S/P L reverse tsa TECHNIQUE: Imaging protocol: Radiologic exam of the left shoulder. Views: 2 or more views. COMPARISON: CT shoulder LT wo con* [id number] 11/05/2023 10:52 AM FINDINGS: Bones/joints: Reverse TSA left shoulder. Hardware appears in good position. No indication of hardware failure. No fracture or acute osseous abnormality. Soft tissues: Postsurgical soft tissue lucency or edema. No abnormal soft tissue gas. XR/XR shoulder LT min 2V* [id number] IMPRESSION: Postsurgical changes with reverse TSA left shoulder. No acute hardware or osseous abnormality.
--- NOTE | 2023-12-09 16:36 | PM.PACU ---
PACU note Narrative: pt is a 68-year-old female just underwent a left reverse total shoulder. Patient transferred to PACU in stable condition. Pain is well controlled. shoulder Dressing on , dry and in place. Patient's operative arm is in a shoulder immobilizer. Patient is awake and alert and able to respond to my questions accordingly. Patient's fingers are warm with good perfusion. Normal cap refill under 2 seconds. Patient is able to wiggle fingers. unable to assess further range of motion in arm due to sling. Unable to assess sensation due to residual localized anesthetic. Exam: awake Disposition: admitted
--- NOTE | 2023-12-09 17:20 | ANE.PACU2 ---
Inpatient post-anesthesia follow up: Airway intact: Yes Vital signs: Temperature 98.2 F Pulse Rate 74 Respiratory Rate 17 Blood Pressure 95/71 Pulse Oximetry 96 Oxygen Delivery Me thod Room Air Oxygen Flow Rate Fraction of Inspir ed Oxygen Hydration adequate: Yes Nausea and vomiting: No Pain level: 1 Mental status: Baseline
[2023-12-09] MEDS: sodium chloride 0.9% 1,000 ML 80 ML IV (17:40)
[2023-12-09] MEDS: tranexamic acid 1,000 MG/100 ML PREMIX 600 MG IV (17:57)
[2023-12-09] MEDS: calcium carb-vit d 600mg/400unit 1 Tablet 1 EACH PO (17:58)
[2023-12-09] MEDS: docusate sodium 100 mg Capsule PO (17:58)
[2023-12-09] MEDS: iron polysaccharide complex 150 mg Capsule PO (17:58)
[2023-12-09] MEDS: ketorolac 30 mg/mL INJ 15 MG IVP (17:58)
[2023-12-09] MEDS: acetaminophen 500 mg Tablet 1000 MG PO (17:59)
[2023-12-09] MEDS: carvedilol 12.5 mg Tablet PO (17:59)
[2023-12-09] MEDS: chlorhexidine gluconate 0.12% Btl 473 mL 30 ML MUCOUS MEM ×2 (17:59→20:39)
--- NOTE | 2023-12-09 18:35 | P.CONIM_ITS ---
Providers/Reason For Consult 2 Consulting Physician/Specialty*: Hospitalist Reason for Consult*: Postop management Attending Physician: Jayjay Saldivar DO Primary Care Provider: Obey Rose MD History of Present Illness History of Present Illness Trish Rocha is a 68 year old female postop day 0 left reverse total shoulder, hospital service requested for postop management. Patient has been on Eliquis which she has stopped before surgery, her blood pressure is remaining soft, decided to stop all of her antihypertensive regimen. At the time of evaluation patient is not endorsing significant pain, awake and alert with generalized weakness and fatigue. Review of Systems 2 Const: Denies: fever(s) Eyes: Denies: change in vision ENMT: Denies: throat pain Card: Denies: chest pain Resp: Denies: dyspnea GI: Denies: abdominal pain Medications/Allergies Home Medications Medication Instructions Recorded Confirmed Last Taken Type famotidine 20 mg tablet (Pepcid) 20 mg PO BID #180 tabs 06/10/23 12/08/23 12/08/23 Rx hydralazine 50 mg tablet 75 mg (1.5 x 50 mg) PO TID #90 tabs 08/04/23 12/08/23 12/08/23 Rx levothyroxine 25 mcg tablet 50 mcg (2 x 25 mcg) PO DAILY #90 08/04/23 12/08/23 12/08/23 Rx tabs lisinopril 40 mg tablet 40 mg PO DAILY #30 tabs 08/31/23 12/08/23 12/08/23 Rx loratadine 10 mg tablet (Claritin) 10 mg PO DAILY #30 tabs 09/09/23 12/08/23 12/08/23 Rx left arm sling #1 ea 09/17/23 12/10/23 Unknown Rx escitalopram oxalate 10 mg tablet 10 mg PO DAILY #60 tabs 10/07/23 12/08/23 12/08/23 Rx atorvastatin 80 mg tablet 80 mg PO BEDTIME 10/23/23 12/08/23 12/07/23 History fluticasone propionate 50 2 spray intranasal DAILY #16 grams 10/23/23 12/08/23 12/08/23 Rx mcg/actuation nasal spray,suspension nifedipine 60 mg tablet,extended 60 mg PO DAILY 10/23/23 12/08/23 12/08/23 History release 24 hr quetiapine 100 mg tablet (Seroquel) 100 mg PO BEDTIME 10/23/23 12/08/23 12/08/23 History trazodone 100 mg tablet 100 mg PO BEDTIME 10/23/23 12/08/23 12/08/23 History apixaban 5 mg tablet (Eliquis) 5 mg PO Q12H #60 tabs 11/17/23 12/08/23 12/07/23 Rx aspirin 81 mg tablet,delayed 81 mg PO DAILY #30 tabs 11/17/23 12/08/23 12/04/23 Rx release carvedilol 12.5 mg tablet 12.5 mg PO BID #60 tabs 11/17/23 12/08/23 12/08/23 Rx hydrochlorothiazide 25 mg tablet 25 mg PO DAILY #30 tabs 11/17/23 12/08/23 12/08/23 Rx ferrous sulfate 325 mg (65 mg 325 mg PO DAILY #30 tabs 11/19/23 12/08/23 12/08/23 Rx iron) tablet hydrocodone 5 mg-acetaminophen 325 1 tab PO Q8H PRN pain 30 days #90 11/24/23 12/08/23 12/08/23 Rx mg tablet tabs magnesium oxide 400 mg (241.3 mg 400 mg PO BEDTIME 12/08/23 12/08/23 12/08/23 History magnesium) tablet oxycodone 5 mg tablet 10 mg (2 x 5 mg) PO Q6H PRN pain 7 12/09/23 Unknown Rx days #56 tabs Allergies Allergy/AdvReac Type Severity Reaction Status Date / Time No Known Drug Allergies Allergy Unknown Verified 12/09/23 10:51 Current Medications Generic Name Dose Route Start Last Admin Trade Name Freq PRN Reason Stop Dose Admin Acetaminophen 1,000 mg 12/09/23 17:15 12/09/23 17:59 Acetaminophen 500 Mg Tablet PO 1,000 mg Q8H KARLA Administration Calcium Carbonate 1 each 12/09/23 18:00 12/09/23 17:58 Calcium Carb-Vit D 600mg/400unit 1 Tablet PO 1 each BID KARLA Administration Carvedilol 12.5 mg 12/09/23 18:00 12/09/23 17:59 Carvedilol 12.5 Mg Tablet PO 12.5 mg BID KARLA Administration Chlorhexidine Gluconate 30 ml 12/09/23 17:15 12/09/23 17:59 Chlorhexidine Gluconate 0.12% Btl 473 Ml MUCOUS MEM 30 ml QID KARLA Administration Docusate Sodium 100 mg 12/09/23 18:00 12/09/23 17:58 Docusate Sodium 100 Mg Capsule PO 100 mg BID KARLA Administration Tranexamic Acid 1,000 mg in 100 mls @ 600 mls/hr 12/09/23 18:39 12/09/23 18:32 Tranexamic Acid IV 12/09/23 18:48 Infused ONCE ONE Infusion Sodium Chloride 1,000 mls @ 80 mls/hr 12/09/23 17:15 12/09/23 17:40 Sodium Chloride 0.9% IV 80 mls/hr .[id number] KARLA Administration Ketorolac Tromethamine 15 mg 12/09/23 17:15 12/09/23 17:58 Ketorolac 30 Mg/Ml Inj IVP 15 mg Q6H PRN Administration Pain - See dose instructions Polysaccharide Iron Complex 150 mg 12/09/23 18:00 12/09/23 17:58 Iron Polysaccharide Complex 150 Mg Capsule PO 150 mg BIDWM KARLA Administration PFSH Acute 2 PFSH: Medical History Right-sided lacunar infarction Severe pulmonary hypertension Diastolic heart failure On Coumadin for atrial fibrillation Elevated d-dimer Elevated troponin Dyspnea Hypothyroidism Hyponatremia Atrial fibrillation with RVR Atrial fibrillation with RVR Dehydration Hyponatremia Altered mental status Subacromial impingement of left shoulder Rotator cuff tear, left Anemia Bipolar 2 disorder Anxiety Diabetes Hypercholesterolemia Syncope Urgency of urination Hypertension Surgical History Hx of section x 3 Hx of bilateral cataract extraction H/O gastric bypass Family History Grandmother Cancer Hyperlipidemia Hypertension Mother Hypertension CAD (coronary artery disease) unknown age of onset Denies family history of Diabetes Clotting disorder Dementia Chronic kidney disease (CKD) Suicide Anesthesia complication Bleeding disorder Lung disease Stroke Social History Smoking and tobacco/nicotine status: unknown if used tobacco/nicotine Alcohol intake: never Substance/Drug Use: never Marital status: Vitals/I&O/Wt Last Vital Signs Temp 97.9 F 12/09/23 17:30 Pulse 68 12/09/23 18:31 Resp 16 12/09/23 18:31 BP 123/69 12/09/23 18:10 Pulse Ox 96 12/09/23 18:31 O2 Del Method Room Air 12/09/23 18:31 12/09/23 12/09/23 12/09/23 06:59 14:59 22:59 Intake Total 650 / 650 200 / 850 Output Total 400 / 400 Balance 650 / 650 -200 / 450 Weight last 48 hrs Weight 65.771 kg Weight 65.771 kg Physical Exam 2 Narrative: Left arm is in a sling No neurovascular compromise Pleasant cooperative GCS 15 Low blood pressure GCS 15 S1, S2 variable without RVR Currently on room air Urinary Catheter Management: Gould: Cath Placed During This Visit: yes Reason for Continuing Indwelling Catheter: Perioperative Use in Selected Surgeries Urinary Catheter Date of Insertion: 12/09/23 Urinary Catheter Time of Insertion: 14:01 Data 12/10/23 09:22 12/10/23 05:40 A&P Assessment and plan (1) Severe pulmonary hypertension: (2) Atrial fibrillation: (3) S/P shoulder surgery: (4) Postoperative anemia: Plan Left shoulder surgery Postop day 0 Blood pressure low Hold hypertensive regimen IV fluid hydration overnight Hold Eliquis DVT prophylaxis: SCDs Add DuoNeb and senna S Requested CBC for tomorrow Full code Will follow along orthopedic service Consult Attestations 2 Medical Necessity Statement: As orthopedics Diagnoses Severe pulmonary hypertension I27.20 Atrial fibrillation I48.91 S/P shoulder surgery Z98.890 Postoperative anemia D64.9
[2023-12-09] MEDS: magnesium oxide 400 mg tablet PO (19:53)
[2023-12-09] MEDS: quetiapine 100 mg Tablet PO (19:54)
[2023-12-09] MEDS: oxyCODONE 5 mg IR Tab/Cap PO (19:54)
--- NOTE | 2023-12-09 22:53 | PC.NURSE ---
Patient c/o 12/09 pain. Unable to give PRN Dialudid at this time due to blood pressure of 98/50. Unable to give PRN Toradol at this time as it was given at 17:58 and it is q6h PRN.
[2023-12-09] MEDS: lanolin oint 7 gm 1 APPLIC TOPICAL (23:17)
[2023-12-10] VITALS (28 sets, daily range): BP systolic 80–149; BP diastolic 40–80; PULSE 69–119; RESP 16–21; TEMP 36.7–37.1; O2SAT 92–96
[2023-12-10] MEDS: ketorolac 30 mg/mL INJ 15 MG IVP ×3 (00:04→12:48)
[2023-12-10] MEDS: acetaminophen 500 mg Tablet 1000 MG PO ×3 (00:04→17:07)
--- NOTE | 2023-12-10 00:27 | PC.NURSE ---
Dr. Lopez notified of 10 pain being reported from patient. Notified that patient's blood pressures are too low to give PRN Dialudid and that patient has already received Tylenol and Toradol. Lidocaine patch ordered.
[2023-12-10] MEDS: lidocaine 5% Patch 1 PATCH TOPICAL (00:34)
--- NOTE | 2023-12-10 01:02 | PC.NURSE ---
Addendum entered by Ariela Galloway RN 12/10/23 01:46: 250 ml bolus was ordered by Dr. Lopez after he was notified of blood pressure of 92/49. Original Note: 250 ml NS bolus non-admined on apr due to being given out of bag that is already hanging.
--- NOTE | 2023-12-10 01:41 | PC.NURSE ---
Dr. Lopez notified of the following: She received the 250 ml bolus. Her blood pressure is 88/51. She is saying she is in so much pain that she can't stand it anymore. The surgical site looks fine. Is there anything we can do for her pain with her blood pressure like that? Ordered to place cooling or ice pack on surgical site.
--- NOTE | 2023-12-10 01:43 | PC.NURSE ---
Dr. Lopez notified of the following: We removed her eagn around 8 pm. She has only had 150 ml urine output since then. She says she feels like she needs to pee. Three different nurses attempt to bladder scan her and we can't find her bladder on the scanner. Ordered to straight cath, and if more than 250 comes out during stright cath, ordered to replace Egan.
--- NOTE | 2023-12-10 02:26 | PC.NURSE ---
Only 50 ml urine output with straight cath. Dr. Lopez notified. Ordered to monitor intake and output.
--- NOTE | 2023-12-10 02:31 | PC.NURSE ---
Patient states she cannot take Tramadol because it makes her shaky and wires her up.
[2023-12-10] MEDS: HYDROmorphone 1 mg/mL INJ 1 mL IVP (02:34)
[2023-12-10] MEDS: sodium chloride 0.9% 1,000 ML 80 ML IV (02:37)
--- NOTE | 2023-12-10 02:38 | PC.NURSE ---
Addendum entered by Ariela Galloway RN 12/10/23 02:43: Dr. Lopez notified of this. And also notified that patient is very anxious and has not received her Lexapro or Trazodone that she takes at home, but has received her Seroquel. Original Note: Patient frequently up to bedside commode stating that she feels like she needs to pee.
[2023-12-10] MEDS: phenazopyridine 100 mg Tablet PO (03:02)
[2023-12-10] MEDS: trazodone 100 mg Tablet PO ×2 (03:02→20:49)
[2023-12-10] MEDS: escitalopram 10 mg Tablet PO (03:02)
--- NOTE | 2023-12-10 03:10 | PC.NURSE ---
Dr. Lopez notified of the following: Her blood pressure was 105/69 so I gave 0.2 mg of PRN Dialudid. It didn't help her. She's not wanting to take Oxy because she said it didn't help her and she says Tramadol gives her the shakes. Her blood pressure is now 138/60. The PRN Dilaudid order is q3h. One time dose of Dilaudid ordered.
[2023-12-10] MEDS: HYDROmorphone 1 mg/mL INJ 1 mL 0.5 MG IVP ×2 (03:22→06:11)
[2023-12-10] MEDS: oxyCODONE 5 mg IR Tab/Cap PO ×4 (03:47→19:17)
[2023-12-10] MEDS: ceFAZolin 2,000 MG in sodium chloride 0.9% (plus) 50 ML 100 MG IV ×2 (04:55→14:59)
[2023-12-10] MEDS: TRAMadol 50 mg Tablet PO ×2 (05:02→12:49)
[2023-12-10 06:27] LABS: Basophils % 0.1 %; Hematocrit 24.8 % (36-47); Lymphocytes # 2.2 10^3/uL (0.8-4.8); Lymphocytes % 21.5 %; Mean Corpuscular HGB Conc 31.5 g/dL (30-55); Mean Corpuscular Hemoglobin 28.6 pg (27-33); Mean Corpuscular Volume 90.8 fl (85-98); Mean Platelet Volume 9.3 fL (7.4-10.4); Monocytes # 0.9 10^3/uL (0.2-0.9); Neutrophils # 7.01 10^3/uL (1.8-7.7); Neutrophils % 69.1 %; Nucleated Red Blood Cells % 0 %; Platelet Count 307 10^3/cmm (157-399); Red Blood Count 2.73 10^6/uL (3.85-5.65); Red Cell Distribution Width 13.8 % (12.1-15.1); White Blood Count 10.14 10^3/uL (3.29-11.43)
[2023-12-10 06:49] LABS: Anion Gap 13.9 (5-19); Blood Urea Nitrogen 17 mg/dL (8-23); Calcium 8.1 mg/dL (8.5-10.5); Carbon Dioxide 22 mmol/L (22-29); Chloride 99 mmol/L (98-107); Creatinine Clr Calc Pharmacy 57.1546; Glomerular Filtration Rate 62.5 mL/min (90-130); Glucose 105 mg/dL (65-115); Osmolality Calculated 274 mOsm/kg (285-295); Potassium 3.9 mmol/L (3.5-5.1); Sodium 131 mmol/L (136-145)
[2023-12-10] MEDS: levothyroxine 50 mcg Tablet PO (09:24)
[2023-12-10] MEDS: calcium carb-vit d 600mg/400unit 1 Tablet 1 EACH PO ×2 (09:25→17:08)
[2023-12-10] MEDS: iron polysaccharide complex 150 mg Capsule PO ×2 (09:25→17:07)
[2023-12-10] MEDS: multivitamin therapeutic Tablet 1 TAB PO (09:26)
[2023-12-10] MEDS: docusate sodium 100 mg Capsule PO ×2 (09:26→17:07)
[2023-12-10] MEDS: chlorhexidine gluconate 0.12% Btl 473 mL 30 ML MUCOUS MEM ×4 (09:27→20:44)
[2023-12-10 09:36] LABS: Hematocrit 22.4 % (36-47)
--- NOTE | 2023-12-10 09:57 | PC.CHAP ---
Pastoral Care Encounter/Spiritual Assessment Type of Contact [] Declined seam steamer visit [] Patient/Family/Request visit [] Outpatient visit [] Follow-up visit [] Physician referral [] Code/Alert [x] Routine visit [] Staff referral [] Actively dying [] Patient sleeping [] Family support [] [] Out of room [] Palliative care [] [] Receiving care in room [] Pre-surgical visit [] Trauma [] Long length of stay [] ICU visit [] Other: Relational/Emotional Strength [x] Patient feels connected with others/family/visitors/staff [] Distress [] Loneliness/isolation [] Abandonment Spirituality of Patient [x] Person of Brit [] Attends Sabianism of their Brit [x] Believes in Prayer [] Reads Bible or Presybeterian materials [] There are Spiritual issues to be addressed Dredge Master Interventions [x] Prayer [x] Active listening [] Non-anxious presence [x] Spiritual/emotional support [] Crisis/trauma care [] Spiritual counseling [] Bereavement support [] Provided bereavement packet [] Provided Bible/devotional materials [] Provided toy/stuffed animal, coloring book to patient or family member [] Provided Communion [] Anointing/[place] [] Salvation [x] Completed spiritual assessment [] Other: Impact on Illness or Injury [] Angry [] Fearful [] Anxious [] Often cries [] Exhaustion [] Unable to work [] Unable to attend bahai [] Unable to walk/stand [] Unable to read [] Unable to drive [] Unable to eat/drink [] Unable to sleep [] Unable to be with family [] Patient intubated [] Other: Summary Time spent with patient 5 min
--- NOTE | 2023-12-10 10:33 | P.PN_ITS ---
Subjective 2 Subjective: Blood pressure stable today Discontinue fluids Requested 1 unit PRBC Vitals/I&O/Wt Last Vital Signs Temp 98.5 F 12/10/23 08:00 Pulse 78 12/10/23 09:18 Resp 16 12/10/23 09:23 BP 111/70 12/10/23 08:00 Pulse Ox 93 12/10/23 09:18 O2 Del Method Room Air 12/10/23 09:18 12/09/23 12/10/23 12/10/23 22:59 06:59 14:59 Intake Total 468 / 1118 2150.166 / 3268.166 480 / 480 Output Total 600 / 600 250 / 850 75 / 75 Balance -132 / 518 1900.166 / 2418.166 405 / 405 Weight last 48 hrs Weight 77.519 kg Weight 65.771 kg Weight 65.771 kg Physical Exam 2 Narrative: Pleasant cooperative GCS 15 Nonfocal neuroexam Left arm in a sling no neurovascular abnormality Variable S1-S2 no signs of RVR Abdomen soft Urinary Catheter Management: Gould: Cath Placed During This Visit: yes, but has since been removed by the nurse Reason for Continuing Indwelling Catheter: Decision to DC Catheter Urinary Catheter Date of Insertion: 12/09/23 Urinary Catheter Time of Insertion: 14:01 Date Urinary Catheter Removed: 12/09/23 Time Urinary Catheter Discontinued: 20:46 Data 12/10/23 09:22 12/10/23 05:40 A&P Assessment and plan (1) S/P shoulder surgery: (2) Postoperative anemia: (3) Hypotension: Plan Postoperative anemia Will request 1 unit PRBC Hold off on Eliquis for now Hypotension related to anesthetic agents, antihypertensive regimen Overnight IV fluids improved her blood pressure She is not symptomatic at this point Full code Regular diet DVT prophylaxis: SCDs Likely will be discharged by tomorrow Attestations 2 Medical Necessity Statement*: As per orthopedics Diagnoses S/P shoulder surgery Z98.890 Postoperative anemia D64.9 Hypotension I95.9
--- NOTE | 2023-12-10 13:14 | P.PN_ITS ---
Subjective 2 Subjective: Patient seen and examined after lunch she is currently receiving 1 unit PRBC hemoglobin down to 6.9 this morning but otherwise stable no acute issues overnight internal medicine on board appreciate their medical management. Pain controlled with medications. Vitals/I&O/Wt Last Vital Signs Temp 98.6 F 12/10/23 13:05 Pulse 76 12/10/23 13:05 Resp 18 12/10/23 13:05 BP 136/66 12/10/23 13:05 Pulse Ox 95 12/10/23 13:05 O2 Del Method Room Air 12/10/23 12:00 12/09/23 12/10/23 12/10/23 22:59 06:59 14:59 Intake Total 468 / 1118 2150.166 / 3268.166 960 / 960 Output Total 600 / 600 250 / 850 75 / 75 Balance -132 / 518 1900.166 / 2418.166 885 / 885 Weight last 48 hrs Weight 170 lb 14.4 oz Weight 145 lb Weight 145 lb Physical Exam 2 Narrative: Examination left shoulder demonstrates sling on and in place patient sitting up comfortably receiving unit PRBC, sensations intact to light touch to axillary nerve as well as patient able to fire posterior deltoid consistent with axillary motor intact. She is able to wiggle the fingers distal pulses are palpable rosi dressing incisional vacs on and in place with good seal no evidence of saturation on the dressing patient has normal postoperative swelling and tenderness palpation of the shoulder. Urinary Catheter Management: Gould: Cath Placed During This Visit: yes, but has since been removed by the nurse Reason for Continuing Indwelling Catheter: Decision to DC Catheter Urinary Catheter Date of Insertion: 12/09/23 Urinary Catheter Time of Insertion: 14:01 Date Urinary Catheter Removed: 12/09/23 Time Urinary Catheter Discontinued: 20:46 Data 12/11/23 05:19 12/11/23 05:19 Xray Ortho: Radiologist's impression: XR/XR shoulder LT min 2V* [id number] IMPRESSION: Postsurgical changes with reverse TSA left shoulder. No acute hardware or osseous abnormality. 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 Coding Level of Care Code Acute Code for Chg Fwd Diagnoses Status post reverse arthroplasty of left shoulder Z96.612 Anemia D64.9
[2023-12-10] MEDS: flu vacc pf 24-25 (6 mos+) SYRINGE 45 MCG IM (17:03)
[2023-12-10] MEDS: magnesium oxide 400 mg tablet PO (20:42)
[2023-12-10] MEDS: quetiapine 100 mg Tablet PO (20:42)
[2023-12-11] VITALS (7 sets, daily range): BP systolic 148–193; BP diastolic 56–83; PULSE 78–89; RESP 17–18; TEMP 36.7–37.3; O2SAT 90–95
[2023-12-11] MEDS: acetaminophen 500 mg Tablet 1000 MG PO ×2 (01:08→09:36)
[2023-12-11 06:00] LABS: Basophils % 0.3 %; Eosinophils # 0.2 10^3/uL (0.0-0.8); Eosinophils % 1.8 %; Hematocrit 28.9 % (36-47); Lymphocytes # 2.3 10^3/uL (0.8-4.8); Lymphocytes % 22.8 %; Mean Corpuscular HGB Conc 32.2 g/dL (30-55); Mean Corpuscular Hemoglobin 29.2 pg (27-33); Mean Corpuscular Volume 90.6 fl (85-98); Mean Platelet Volume 9.4 fL (7.4-10.4); Monocytes # 1.1 10^3/uL (0.2-0.9); Monocytes % 10.3 %; Neutrophils # 6.59 10^3/uL (1.8-7.7); Neutrophils % 64.5 %; Nucleated Red Blood Cells % 0 %; Platelet Count 276 10^3/cmm (157-399); Red Blood Count 3.19 10^6/uL (3.85-5.65); Red Cell Distribution Width 14.4 % (12.1-15.1); White Blood Count 10.21 10^3/uL (3.29-11.43)
[2023-12-11 06:17] LABS: Anion Gap 13.1 (5-19); Blood Urea Nitrogen 12 mg/dL (8-23); Calcium 8.1 mg/dL (8.5-10.5); Carbon Dioxide 23 mmol/L (22-29); Chloride 103 mmol/L (98-107); Creatinine Clr Calc Pharmacy 64.1425; Glomerular Filtration Rate 83.5 mL/min (90-130); Glucose 98 mg/dL (65-115); Osmolality Calculated 280 mOsm/kg (285-295); Potassium 4.1 mmol/L (3.5-5.1); Sodium 135 mmol/L (136-145)
[2023-12-11] MEDS: escitalopram 10 mg Tablet PO (07:59)
[2023-12-11] MEDS: levothyroxine 50 mcg Tablet PO (07:59)
[2023-12-11] MEDS: docusate sodium 100 mg Capsule PO (08:00)
[2023-12-11] MEDS: oxyCODONE 5 mg IR Tab/Cap PO ×2 (08:00→12:21)
[2023-12-11] MEDS: iron polysaccharide complex 150 mg Capsule PO (08:01)
[2023-12-11] MEDS: ketorolac 30 mg/mL INJ 15 MG IVP (08:01)
[2023-12-11] MEDS: multivitamin therapeutic Tablet 1 TAB PO (08:01)
[2023-12-11] MEDS: calcium carb-vit d 600mg/400unit 1 Tablet 1 EACH PO (08:01)
[2023-12-11] MEDS: lidocaine 5% Patch 1 PATCH TOPICAL (08:05)
[2023-12-11] MEDS: chlorhexidine gluconate 0.12% Btl 473 mL 30 ML MUCOUS MEM (09:37)
--- NOTE | 2023-12-11 10:12 | PC.CHAP ---
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 [] Patient/Family/Request visit [] Outpatient visit [] Follow-up visit [] Physician referral [] Code/Alert [x] Routine visit [] Staff referral [] Actively dying [] Patient sleeping [] Family support [] [] Out of room [] Palliative care [] [] Receiving care in room [] Pre-surgical visit [] Trauma [] Long length of stay [] ICU visit [] Other: Relational/Emotional Strength [x] Patient feels connected with others/family/visitors/staff [] Distress [] Loneliness/isolation [] Abandonment Spirituality of Patient [x] Person of Brit [] Attends Zoroastrianism of their Brit [] Believes in Prayer [] Reads Bible or Restorationist materials [] There are Spiritual issues to be addressed Parachute Rigger Interventions [x] Prayer [] Active listening [] Non-anxious presence [] Spiritual/emotional support [] Crisis/trauma care [] Spiritual counseling [] Bereavement support [] Provided bereavement packet [] Provided Bible/devotional materials [] Provided toy/stuffed animal, coloring book to patient or family member [] Provided Communion [] Anointing/[place] [] Salvation [] Completed spiritual assessment [] Other: Impact on Illness or Injury [] Angry [] Fearful [] Anxious [] Often cries [] Exhaustion [] Unable to work [] Unable to attend jehovah's witness [] Unable to walk/stand [] Unable to read [] Unable to drive [] Unable to eat/drink [] Unable to sleep [] Unable to be with family [] Patient intubated [] Other: Summary Time spent with patient 10min
--- NOTE | 2023-12-11 10:48 | W.PM.EVENTAC ---
Event Note Event Note: Patient is hypertensive today May resume her home medications antihypertensive regimen Hemodynamically stable GCS 15 Nonfocal neuroexam Left arm in a sling Reviewed return home I have asked patient to start taking her Eliquis Patient medically cleared to be discharged, Dr. Saldivar's service to discharge the patient
--- NOTE | 2023-12-11 13:41 | P.DS_ITS ---
Discharge Providers Date of Admission: 12/09/23 Date of Discharge: December 11, 2023 Attending Provider at Admission: Jayjay Saldivar DO Attending Provider at Discharge: Jayjay Saldivar DO Consults: HospitalistDr. Melton Primary Care Provider: Obey Rose MD Diagnoses at Discharge Discharge Diagnosis (1) S/P shoulder surgery: Status: Inactive (2) Postoperative anemia: Status: Inactive (3) Hypotension: Status: Inactive Reason for Visit Reason for Visit: M12.812 Brief History: s/p L Reverse TSA Hospital Course Hospital Course patient was brought to the preoperative area with plan for [left]reverse total shoulder arthroplasty seen evaluated by anesthesia once cleared for surgery taken back to the operative suite patient underwent anesthesia per anesthesia department pt underwent a [left ]reverse total shoulder arthroplasty without c omplications. Pt was subsequently taken to PACU in stable condition recovering well in PACU and was admitted to the floor postoperatively. Pt received appropriate postoperative pain medication DVT prophylaxis, perioperative antibiotics. Pt was instructed nonweightbearing to left upper extremity maintain sling work with PT/OT. Pt progressed well postoperatively. labs were monitored daily.Patient had acute postoperative blood loss anemia hemoglobin 6.9 postoperative day 1 received 1 unit PRBC responded well with this and was rechecked the next day and stable for discharge. dressing was changed as needed maintain dorian dressing with good seal throughout the hospitalization. Internal medicine was on board to assist with medical management. Patient subsequently on postoperative day [ 2] was determined that patient was stable for discharge from an orthopedic standpoint and medical standpoint. Patient was subsequently discharged home with home health. Given appropriate discharge instructions as well as pain medication DVT prophylaxis. Follow-up in the orthopedic office in 2 weeks. Physical Exam Narrative: Examination left shoulder demonstrates sling on and in place patient sitting up comfortably receiving unit PRBC, sensations intact to light touch to axillary nerve as well as patient able to fire posterior deltoid consistent with axillary motor intact. She is able to wiggle the fingers distal pulses are palpable dorian dressing incisional vacs on and in place with good seal no evidence of saturation on the dressing patient has normal postoperative swelling and tenderness palpation of the shoulder. Urinary Catheter Management: Gould: Cath Placed During This Visit: yes, but has since been removed by the nurse Reason for Continuing Indwelling Catheter: Decision to DC Catheter Urinary Catheter Date of Insertion: 12/09/23 Urinary Catheter Time of Insertion: 14:01 Date Urinary Catheter Removed: 12/09/23 Time Urinary Catheter Discontinued: 20:46 Discharge Data Studies Completed and Pending Completed Studies During Hospitalization Category Date Time Status XR shoulder LT min 2V* [id number] Routine Exams 12/09/23 16:27 Completed Pending at discharge Category Date Time Status Basic Metabolic Panel AM LABS Lab 12/12/23 04:00 Ordered Complete Blood Count w/Auto AM LABS Lab 12/12/23 04:00 Ordered Radiology Impressions Shoulder X-Ray 12/09/23 16:27 IMPRESSION: Postsurgical changes with reverse TSA left shoulder. No acute hardware or osseous abnormality. Laboratory Results WBC 10.21 10^3/uL (3.29-11.43) 12/11/23 05:19 RBC 3.19 10^6/uL (3.85-5.65) L 12/11/23 05:19 Hgb 9.30 g/dL (11.27-16.99) L D 12/11/23 05:19 Hct 28.9 % (36-47) L 12/11/23 05:19 MCV 90.6 fl (85-98) 12/11/23 05:19 MCH 29.2 pg (27-33) 12/11/23 05:19 MCHC 32.2 g/dL (30-55) 12/11/23 05:19 RDW 14.4 % (12.1-15.1) 12/11/23 05:19 Plt Count 276 10^3/cmm (157-399) 12/11/23 05:19 MPV 9.4 fL (7.4-10.4) 12/11/23 05:19 Neut % (Auto) 64.5 % 12/11/23 05:19 Lymph % (Auto) 22.8 % 12/11/23 05:19 Izard % (Auto) 10.3 % 12/11/23 05:19 Eos % (Auto) 1.8 % 12/11/23 05:19 Baso % (Auto) 0.3 % 12/11/23 05:19 Neut # (Auto) 6.59 10^3/uL (1.8-7.7) 12/11/23 05:19 Lymph # (Auto) 2.3 10^3/uL (0.8-4.8) 12/11/23 05:19 Izard # (Auto) 1.1 10^3/uL (0.2-0.9) H 12/11/23 05:19 Eos # (Auto) 0.2 10^3/uL (0.0-0.8) 12/11/23 05:19 Baso # (Auto) 0.0 10^3/uL (0.0-0.1) 12/11/23 05:19 Nucleated RBC % (auto) 0 % 12/11/23 05:19 Nucleated RBCs # 0.0 /100WBC 12/11/23 05:19 Sodium 135 mmol/L (136-145) L 12/11/23 05:19 Potassium 4.1 mmol/L (3.5-5.1) 12/11/23 05:19 Chloride 103 mmol/L (98-107) 12/11/23 05:19 Carbon Dioxide 23 mmol/L (22-29) 12/11/23 05:19 Anion Gap 13.1 (5-19) 12/11/23 05:19 BUN 12 mg/dL (8-23) 12/11/23 05:19 Creatinine 0.7 mg/dL (0.5-0.9) 12/11/23 05:19 GFR Calculation 83.5 mL/min (90-130) L 12/11/23 05:19 Glucose 98 mg/dL (65-115) 12/11/23 05:19 Calculated Osmolality 280 mOsm/kg (285-295) L 12/11/23 05:19 Calcium 8.1 mg/dL (8.5-10.5) L 12/11/23 05:19 Blood Type O Positive 12/09/23 11:10 Rho(D) Type Rh positive 12/09/23 11:10 Antibody Screen Negative 12/09/23 11:10 Crossmatch See Detail 12/09/23 11:10 Vitals Last Vital Signs Temp 98.2 F 12/11/23 12:00 Pulse 78 12/11/23 12:00 Resp 17 12/11/23 12:21 BP 173/78 12/11/23 12:00 Pulse Ox 92 12/11/23 12:00 O2 Del Method Room Air 12/11/23 12:00 Discharge Plan Discharge Patient Disposition: Home Condition: Stable Prescriptions: New calcium carbonate-vitamin D3 [Calcium 600 + D(3)] 600 mg-10 mcg (400 unit) tablet 1 tab PO DAILY 30 Days Qty: 30 0RF Continued (DME) left arm sling See Rx Instructions .Route .MEDSUPPLY Qty: 1 0RF Rx Instructions: As directed hydrocodone-acetaminophen 5-325 mg tablet 1 tab PO Q8H PRN (Reason: pain) 30 Days Qty: 90 0RF famotidine [Pepcid] 20 mg tablet 20 mg PO BID Qty: 180 11RF hydralazine 50 mg tablet 75 mg PO TID Qty: 90 11RF levothyroxine 25 mcg tablet 50 mcg PO DAILY Qty: 90 11RF lisinopril 40 mg tablet 40 mg PO DAILY Qty: 30 11RF fluticasone propionate 50 mcg/actuation spray,suspension 2 spray intranasal DAILY Qty: 16 11RF ferrous sulfate 325 mg (65 mg iron) tablet 325 mg PO DAILY Qty: 30 11RF escitalopram oxalate 10 mg tablet 10 mg PO DAILY Qty: 60 2RF quetiapine [Seroquel] 100 mg tablet 100 mg PO BEDTIME atorvastatin 80 mg tablet 80 mg PO BEDTIME nifedipine 60 mg tablet extended release 24hr 60 mg PO DAILY trazodone 100 mg tablet 100 mg PO BEDTIME magnesium oxide 400 mg (241.3 mg magnesium) tablet 400 mg PO BEDTIME aspirin 81 mg Tablet,Delayed Release (Dr/Ec) 81 mg PO DAILY Qty: 30 0RF hydrochlorothiazide 25 mg Tablet 25 mg PO DAILY Qty: 30 0RF Eliquis 5 mg tablet 5 mg PO Q12H Qty: 60 0RF No Action carvedilol 12.5 mg tablet 12.5 mg PO BID Qty: 60 11RF loratadine [Claritin] 10 mg tablet 10 mg PO DAILY Qty: 30 11RF oxycodone 5 mg tablet 10 mg PO Q6H PRN (Reason: pain) 7 Days Qty: 56 0RF Rx Instructions: 1 tab moderate pain 2 tabs severe pain Discharge Orders: Discharge Order (Routine); Ordered 12/11/23 Ordered By: Sulaiman Melton Referrals: Jayjay Saldivar, [Physician] - 7-10 days (We have notified your physician's clinic of the need for a follow-up appointment to be scheduled. If you have not heard from them within the next 2 business days, please call them directly. ) Obey Rose MD [Primary Care Provider] - (Next week for postop check and recheck of CBC(hemoglobin)) Discharge Diet: Regular Discharge Activity: Limit activity as instructed Patient Instructions: Ondansetron (By mouth) (Brennen, Zofran ODT, Eduardaupleneduarda), Oxycodone, Slow Release (By mouth), Calcium Supplement (By mouth), Acute Wound Care (DC), Shoulder Arthroplasty (DC), Opioid Safety, Post Anesthesia Care Activity Restrictions/Additional Instructions: Orthopedic discharge instructions: Keep dressing on and intact. You have a Dorian dressing with battery pack on it. The battery pack lasts for about 5 to 7 days and when battery goes you can remove dressing. If you are going to shower detach battery pack from dressing and then reattach after shower. May leave DORIAN dressing on and in place for 2 w eeks until office visit Keep arm in shoulder sling for the next 4-6 weeks. To prevent frozen shoulder you can take arm out of sling and let it hang down and do pendulum swings. Strict no active Range of motion of the left shoulder. No weight-bear to the operative extremity. Ice as needed for pain and swelling Take pain medication as prescribed Take antinausea medication as needed You can restart Eliquis as previously prescribed 24 hours after surgery No baths or soaks Follow-up in the orthopedic office in 2 weeks Contact the office for any questions or concerns Discharge Attestations Time Spent in Discharge Care*: less than 30 min Status at Discharge: Cognitive status at discharge: mildly impaired cognition , Behavioral status at discharge: cooperative , Quality Metrics Clinical Quality Measures [ No reported AMI, CVA or VTE this stay] Coding Level of Care Code Acute Code for Chg Fwd Diagnoses S/P shoulder surgery Z98.890 Postoperative anemia D64.9 Hypotension I95.9 Time Spent (min) 25
== END 2023-12-11 15:15 | disposition home or self-care (01) | DRG 483 ==
LOC: MEDSURG 16:00
PROVIDERS: Internal Medicine; Physician Assistant; Admitting Provider Student in an Organized Health Care Education/Training Program; PCP Family Medicine; Visit Provider Student in an Organized Health Care Education/Training Program
PROC: 0RRK00Z Replacement of Left Shoulder Joint with Reverse Ball and Socket Synthetic Substitute, Open Approach (ICD-10-PCS; CPT 23472; principal; 2023-12-09 12:50)
DX: M12.812 Other specific arthropathies, not elsewhere classified, left shoulder (principal); A41.9 Sepsis, unspecified organism; I50.32 Chronic diastolic (congestive) heart failure; F31.81 Bipolar II disorder; D62 Acute posthemorrhagic anemia; Z86.73 Personal history of transient ischemic attack (TIA), and cerebral infarction without residual deficits; I27.20 Pulmonary hypertension, unspecified; I11.0 Hypertensive heart disease with heart failure; E03.9 Hypothyroidism, unspecified; F41.9 Anxiety disorder, unspecified; E11.9 Type 2 diabetes mellitus without complications; I95.2 Hypotension due to drugs; T41.1X5A Adverse effect of intravenous anesthetics, initial encounter; Z79.01 Long term (current) use of anticoagulants; Z79.82 Long term (current) use of aspirin; Z79.891 Long term (current) use of opiate analgesic
CPT/HCPCS: 36415; 36430; 51702; 73030; 80048; 85014; 85018; 85025; 86850; 86900; 86920; 90471; 90686; 97165; 97535; C1713; C1776; G0378; J0131; J0690; J1100; J1171; J1885; J2250; J2371; J2405; J2704; J2795; J3010; J3370; J3490; J7030; J7120; P9016

== ENCOUNTER → 2023-12-22 10:19 | Outpatient (BNVA) | payer MEDICARE, SELFPAY | PROVIDERS: PCP Family Medicine; Visit Provider Student in an Organized Health Care Education/Training Program | DX: M12.812 Other specific arthropathies, not elsewhere classified, left shoulder (principal); Z98.890 Other specified postprocedural states; Z96.612 Presence of left artificial shoulder joint | CPT/HCPCS: 73030; 99024 ==

== ENCOUNTER → 2023-12-24 11:58 | Outpatient (BNVA) | payer MEDICARE, SELFPAY | PROVIDERS: PCP Family Medicine; Visit Provider Family Medicine | DX: D64.9 Anemia, unspecified (principal) | CPT/HCPCS: 85025 ==

== ENCOUNTER 2024-01-15 11:43 | Emergency (ER) | payer MEDICARE, SELFPAY ==
[2024-01-15] VITALS (7 sets, daily range): BP systolic 156–182; BP diastolic 67–92; PULSE 75–87; RESP 18–23; TEMP 36.7; O2SAT 98–99
--- NOTE | 2024-01-15 11:53 | XR_ITS ---
WS: [id number] Portable AP upright chest, 01/15/2024 Clinical Data: syncope Comparison: Portable chest, 11/14/2023 Findings: No nodules, masses or effusions are seen. The heart is normal. The pulmonary vascularity is not increased. No pneumonia or pneumothorax is seen. The patient's hand and wrist obscures detail ov er the left chest. There is a tube overlying the inferior portion of the left chest. Monitor leads ar e on the chest wall. There is a left reverse shoulder arthroplasty. There are monitor leads on the ch est wall. XR/XR chest 1V portable [id number] Impression: 1. The heart size has diminished and there is no pulmonary congestion. 2. The mid left chest is obscured by the patient's left hand and wrist. 3. There is a tube overlying the inferior portion of the left lung but no pneum othorax is seen.
--- NOTE | 2024-01-15 11:53 | ECG_ITS ---
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 Measurements Intervals [place] Rate: 80 P: 78 AL: 148 QRS: 35 QRSD: 85 T: 38 QT: 390 QTc: 453 Interpretive Statements SINUS RHYTHM Compared to ECG 11/15/2023 00:52:18 Sinus bradycardia no longer present Prolonged QT interval no longer present Electronically Signed On 01-15-2024 22:35:58 POLE SETTER by Jean Claude Crow M.D. [email or web address]
--- NOTE | 2024-01-15 11:53 | W.ED.GENADLT ---
HPI - General Adult General: Chief complaint: Altered Mental Status Stated complaint: dizzy, confused Time Seen by Provider: 01/15/24 11:47 History of Present Illness: Patient presents to the ER with complaints of dizziness, patient has episodes that she is unable to follow command she stares off into space. But then she comes right back to and she can answer all questions with no postictal or confusion of any kind. Patient's says she gets this way when she has something going on. She denies any drug or alcohol use states her last pain pill was yesterday. I have seen the patient in the past and she has had acted this way then as well. Related Data Home Medications Medication Instructions Recorded Confirmed atorvastatin 80 mg tablet 80 mg PO BEDTIME 10/23/23 01/15/24 nifedipine 60 mg tablet,extended 60 mg PO DAILY 10/23/23 01/15/24 release 24 hr quetiapine 100 mg tablet (Seroquel) 100 mg PO BEDTIME 10/23/23 01/15/24 trazodone 100 mg tablet 100 mg PO BEDTIME 10/23/23 01/15/24 magnesium oxide 400 mg (241.3 mg 400 mg PO BEDTIME 12/08/23 01/15/24 magnesium) tablet aspirin 81 mg tablet,delayed 81 mg PO QAM 01/15/24 01/15/24 release ferrous sulfate 325 mg (65 mg 325 mg PO .EVERY OTHER DAY 01/15/24 01/15/24 iron) tablet metoprolol succinate 50 mg 50 mg PO BID 01/15/24 01/15/24 tablet,extended release 24 hr ondansetron 4 mg disintegrating 4 mg PO Q8H PRN Nausea And Vomiting 01/15/24 01/15/24 tablet Previous Rx's Medication Instructions Recorded famotidine 20 mg tablet (Pepcid) 20 mg PO BID #180 tabs 06/10/23 hydralazine 50 mg tablet 75 mg (1.5 x 50 mg) PO TID #90 tabs 08/04/23 levothyroxine 25 mcg tablet 50 mcg (2 x 25 mcg) PO DAILY #90 08/04/23 tabs lisinopril 40 mg tablet 40 mg PO DAILY #30 tabs 08/31/23 left arm sling #1 ea 09/17/23 escitalopram oxalate 10 mg tablet 10 mg PO DAILY #60 tabs 10/07/23 fluticasone propionate 50 2 spray intranasal DAILY #16 grams 10/23/23 mcg/actuation nasal spray,suspension hydrochlorothiazide 25 mg tablet 25 mg PO DAILY #30 tabs 11/17/23 carvedilol 12.5 mg tablet 12.5 mg PO BID #60 tabs 12/14/23 loratadine 10 mg tablet (Claritin) 10 mg PO DAILY #30 tabs 12/14/23 hydrocodone 5 mg-acetaminophen 325 1 tab PO Q8H PRN pain 30 days #90 12/30/23 mg tablet tabs apixaban 5 mg tablet (Eliquis) 5 mg PO Q12H #60 tabs 12/31/23 oxycodone 5 mg tablet 10 mg (2 x 5 mg) PO Q6H PRN pain 7 01/04/24 days #56 tabs ciprofloxacin HCl 500 mg tablet 500 mg PO Q12H #20 tabs 01/15/24 Allergies Allergy/AdvReac Type Severity Reaction Status Date / Time No Known Drug Allergies Allergy Unknown Verified 12/31/23 14:45 Review of Systems General: Reports: 10 or more systems reviewed and unremarkable except in HPI and below PFSH ED PFSH: Medical History Anemia Hypotension Postoperative anemia Atrial fibrillation Right-sided lacunar infarction Severe pulmonary hypertension Diastolic heart failure On Coumadin for atrial fibrillation Elevated d-dimer Elevated troponin Dyspnea Hypothyroidism Hyponatremia Atrial fibrillation with RVR Atrial fibrillation with RVR Dehydration Hyponatremia Altered mental status Subacromial impingement of left shoulder Rotator cuff tear, left Bipolar 2 disorder Anxiety Diabetes Hypercholesterolemia Syncope Urgency of urination Hypertension Surgical History S/P shoulder surgery Hx of section x 3 Hx of bilateral cataract extraction H/O gastric bypass Family History Grandmother Cancer Hyperlipidemia Hypertension Mother Hypertension CAD (coronary artery disease) unknown age of onset Denies family history of Diabetes Clotting disorder Dementia Chronic kidney disease (CKD) Suicide Anesthesia complication Bleeding disorder Lung disease Stroke Social History Smoking and tobacco/nicotine status: never used tobacco/nicotine Alcohol intake: never Substance/Drug Use: never Marital status: Physical Exam Const: COMMON NORMALS: no acute distress, average body habitus, patient oriented x3, no limitations, healthy appearing, alert and well nourished HENMT: COMMON NORMALS: normocephalic, atraumatic, hearing grossly normal bilaterally, external ears normal, Normal external nose present and moist oral mucous membranes HEAD & SCALP: normocephalic and atraumatic NOSE: Normal external nose present EXTERNAL EAR: Yes external ears normal Neck/C-Spine: COMMON NORMALS: no JVD Chest: COMMONS NORMALS: normal inspection of the chest and normal palpation of entire chest wall Resp: COMMON NORMALS: normal respiratory effort, No retractions, No use of accessory muscles and clear to auscultation bilaterally AUSCULTATION: clear to auscultation bilaterally Cardio: COMMON NORMALS: no JVD, regular rate, regular rhythm, S1 normal heart sound present, S2 normal heart sound present, No gallops present (Cardio), No clicks present (Cardio), No murmurs present (Cardio) and No rub (Cardio) RATE: regular rate RHYTHM: regular rhythm HEART SOUNDS: S1 normal heart sound present and S2 normal heart sound present GI: COMMON NORMALS: Normal to inspection, nondistended, normoactive bowel sounds present, Soft to palpation, non-tender, No hepatosplenomegaly present and no masses PALPATION: Yes Soft to palpation and Yes No hepatosplenomegaly present Neuro: COMMON NORMALS: patient oriented x3 SENSORIUM/ORIENTATION: Yes alert Course Vital Signs: Vital signs: Vital Signs Temperature 98.0 F 01/15/24 11:56 Pulse Rate 78 01/15/24 13:56 Respiratory Rate 23 H 01/15/24 13:32 Blood Pressure 160/86 01/15/24 13:56 Pulse Oximetry 98 01/15/24 13:56 Oxygen Delivery Me thod Room Air 01/15/24 11:56 MDM - General Adult Medical Decision Making Patient had lab work that was scheduled unremarkable other than possible mild urinary tract infection, chest x-ray and shoulder x-ray showed no acute changes, patient was given morphine Zofran and Cipro here in ER and will be discharged on Cipro. Medical Records I reviewed the patient's medical records. Lab Data I reviewed the patient's lab results. 01/15/24 12:17 01/15/24 12:17 Radiology Impressions Chest X-Ray 01/15/24 11:53 Impression: 1. The heart size has diminished and there is no pulmonary congestion. 2. The mid left chest is obscured by the patient's left hand and wrist. 3. There is a tube overlying the inferior portion of the left lung but no pneumothorax is seen. Shoulder X-Ray 01/15/24 13:55 Impression: No change in osteoarthritis of the glenohumeral joint. Laboratory Results WBC 10.35 10^3/uL (3.29-11.43) 01/15/24 12:17 RBC 4.17 10^6/uL (3.85-5.65) 01/15/24 12:17 Hgb 11.60 g/dL (11.27-16.99) 01/15/24 12:17 Hct 34.9 % (36-47) L 01/15/24 12:17 MCV 83.7 fl (85-98) L 01/15/24 12:17 MCH 27.8 pg (27-33) 01/15/24 12:17 MCHC 33.2 g/dL (30-55) 01/15/24 12:17 RDW 14.0 % (12.1-15.1) 01/15/24 12:17 Plt Count 374 10^3/cmm (157-399) 01/15/24 12:17 MPV 8.4 fL (7.4-10.4) 01/15/24 12:17 Neut % (Auto) 65.4 % 01/15/24 12:17 Lymph % (Auto) 25.8 % 01/15/24 12:17 [place] % (Auto) 8.0 % 01/15/24 12:17 Eos % (Auto) 0.4 % 01/15/24 12:17 Baso % (Auto) 0.2 % 01/15/24 12:17 Neut # (Auto) 6.77 10^3/uL (1.8-7.7) 01/15/24 12:17 Lymph # (Auto) 2.7 10^3/uL (0.8-4.8) 01/15/24 12:17 [place] # (Auto) 0.8 10^3/uL (0.2-0.9) 01/15/24 12:17 Eos # (Auto) 0.0 10^3/uL (0.0-0.8) 01/15/24 12:17 Baso # (Auto) 0.0 10^3/uL (0.0-0.1) 01/15/24 12:17 Nucleated RBC % (auto) 0 % 01/15/24 12:17 Nucleated RBCs # 0.0 /100WBC 01/15/24 12:17 Sodium 133 mmol/L (136-145) L 01/15/24 12:17 Potassium 3.8 mmol/L (3.5-5.1) 01/15/24 12:17 Chloride 98 mmol/L (98-107) 01/15/24 12:17 Carbon Dioxide 22 mmol/L (22-29) 01/15/24 12:17 Anion Gap 16.8 (5-19) 01/15/24 12:17 BUN 12 mg/dL (8-23) 01/15/24 12:17 Creatinine 0.7 mg/dL (0.5-0.9) 01/15/24 12:17 GFR Calculation 83.5 mL/min (90-130) L 01/15/24 12:17 Glucose 116 mg/dL (65-115) H 01/15/24 12:17 POC Glucose 121 mg/dL (70-110) H 01/15/24 11:59 Calculated Osmolality 277 mOsm/kg (285-295) L 01/15/24 12:17 Calcium 9.5 mg/dL (8.5-10.5) 01/15/24 12:17 Magnesium 1.8 mg/dL (1.7-2.3) 01/15/24 12:17 Total Bilirubin 0.3 mg/dL (0.15-1.2) 01/15/24 12:17 AST 11 U/L (0-32) 01/15/24 12:17 ALT < 5 U/L (0-33) 01/15/24 12:17 Alkaline Phosphatase 62 U/L (35-105) 01/15/24 12:17 Troponin T Baseline 11 ng/L (0-10) H 01/15/24 12:17 Total Protein 7.1 g/dL (6.6-8.7) 01/15/24 12:17 Albumin 4.0 g/dL (3.5-5.2) 01/15/24 12:17 Globulin 3.1 g/dL (1.3-4.6) 01/15/24 12:17 Urine Color Yellow (Yellow) 01/15/24 13:31 Urine Appearance Clear (CLEAR) 01/15/24 13:31 Urine pH >=9.0 (5-7) A 01/15/24 13:31 Ur Specific [place] 1.015 (1.005-1.030) 01/15/24 13:31 Urine Protein Trace (Negative) A 01/15/24 13:31 Urine Glucose (UA) Negative (Normal) 01/15/24 13:31 Urine Ketones 1+ (Negative) H 01/15/24 13:31 Urine Blood Negative (Negative) 01/15/24 13:31 Urine Nitrate Negative (Negative) 01/15/24 13:31 Urine Bilirubin Negative (Negative) 01/15/24 13:31 Urine Urobilinogen 0.2 mg/dL (Negative) 01/15/24 13:31 Ur Leukocyte Esterase Trace (Negative) A 01/15/24 13:31 Urine RBC 0-2 /hpf (0-2) 01/15/24 13:31 Urine WBC 0-5 /hpf (0-5) 01/15/24 13:31 Ur Squamous Epith Cells 0-5 /hpf (0-5) 01/15/24 13:31 Amorphous Sediment Not Reportable 01/15/24 13:31 Urine Bacteria None seen /hpf (NONE) 01/15/24 13:31 Hyaline Casts 0.40 /lpf 01/15/24 13:31 Urine Opiates Screen Positive ng/mL (Negative) H 01/15/24 13:31 Ur Barbiturates Screen Negative ng/mL (Negative) 01/15/24 13:31 Ur Phencyclidine Scrn Negative ng/mL (Negative) 01/15/24 13:31 Ur Amphetamines Screen Negative ng/mL (Negative) 01/15/24 13:31 U Benzodiazepines Scrn Negative ng/mL (Negative) 01/15/24 13:31 Urine Cocaine Screen Negative ng/mL (Negative) 01/15/24 13:31 U Marijuana (THC) Screen Negative ng/mL (Negative) 01/15/24 13:31 All radiology interpretation(s) finalized by discharge Discharge Plan Discharge Patient Disposition: Home Clinical Impression: Altered mental status Qualifiers: Altered mental status type: transient alteration of awareness Qualified Code(s): R40.4 - Transient alteration of awareness Urinary tract infection Qualifiers: Urinary tract infection type: acute cystitis Hematuria presence: without hematuria Qualified Code(s): N30.00 - Acute cystitis without hematuria Condition: Stable Prescriptions: New ciprofloxacin HCl 500 mg tablet 500 mg PO Q12H Qty: 20 0RF No Action (DME) left arm sling See Rx Instructions .Route .MEDSUPPLY Qty: 1 0RF Rx Instructions: As directed Eliquis 5 mg tablet 5 mg PO Q12H Qty: 60 11RF famotidine [Pepcid] 20 mg tablet 20 mg PO BID Qty: 180 11RF hydralazine 50 mg tablet 75 mg PO TID Qty: 90 11RF levothyroxine 25 mcg tablet 50 mcg PO DAILY Qty: 90 11RF lisinopril 40 mg tablet 40 mg PO DAILY Qty: 30 11RF fluticasone propionate 50 mcg/actuation spray,suspension 2 spray intranasal DAILY Qty: 16 11RF carvedilol 12.5 mg tablet 12.5 mg PO BID Qty: 60 11RF loratadine [Claritin] 10 mg tablet 10 mg PO DAILY Qty: 30 11RF hydrocodone-acetaminophen 5-325 mg tablet 1 tab PO Q8H PRN (Reason: pain) 30 Days Qty: 90 0RF oxycodone 5 mg tablet 10 mg PO Q6H PRN (Reason: pain) 7 Days Qty: 56 0RF Rx Instructions: 1 tab moderate pain 2 tabs severe pain escitalopram oxalate 10 mg tablet 10 mg PO DAILY Qty: 60 2RF quetiapine [Seroquel] 100 mg tablet 100 mg PO BEDTIME atorvastatin 80 mg tablet 80 mg PO BEDTIME nifedipine 60 mg tablet extended release 24hr 60 mg PO DAILY trazodone 100 mg tablet 100 mg PO BEDTIME magnesium oxide 400 mg (241.3 mg magnesium) tablet 400 mg PO BEDTIME hydrochlorothiazide 25 mg Tablet 25 mg PO DAILY Qty: 30 0RF metoprolol succinate 50 mg tablet extended release 24 hr 50 mg PO BID ondansetron 4 mg tablet,disintegrating 4 mg PO Q8H PRN (Reason: Nausea And Vomiting) aspirin 81 mg tablet,delayed release (DR/EC) 81 mg PO QAM ferrous sulfate 325 mg (65 mg iron) tablet 325 mg PO .EVERY OTHER DAY Discharge Orders: Discharge ED (Routine); Ordered 01/15/24 Ordered By: Wyatt Ragsdale Referrals: Obey Rose MD [Primary Care Provider] - 1 week Patient Instructions: Altered Mental Status (ED), Urinary Tract Infection - Women Activity Restrictions/Additional Instructions: Thank you for choosing [facility] for your healthcare needs today. Please realize that you were seen in the emergency department and that we are providing you with an emergency medical screening exam and this may not be a complete and all exclusive of all testing and/or medical workup we may need to determine your element or severity of your illness. It is very important that you follow-up as instructed with your primary care provider or specialist for the additional evaluation and to discuss your medical treatment plan. You may return to the emergency department should you have concerns or if your condition changes or worsens in any way. Coding Level of Care Code ED Delivery Room Clerk for Mayela Jacobsen
[2024-01-15 12:02] LABS: Glucose Point of Care 121 mg/dL (70-110)
[2024-01-15 12:23] LABS: Basophils % 0.2 %; Eosinophils % 0.4 %; Hematocrit 34.9 % (36-47); Lymphocytes # 2.7 10^3/uL (0.8-4.8); Lymphocytes % 25.8 %; Mean Corpuscular HGB Conc 33.2 g/dL (30-55); Mean Corpuscular Hemoglobin 27.8 pg (27-33); Mean Corpuscular Volume 83.7 fl (85-98); Mean Platelet Volume 8.4 fL (7.4-10.4); Monocytes # 0.8 10^3/uL (0.2-0.9); Neutrophils # 6.77 10^3/uL (1.8-7.7); Neutrophils % 65.4 %; Nucleated Red Blood Cells % 0 %; Platelet Count 374 10^3/cmm (157-399); Red Blood Count 4.17 10^6/uL (3.85-5.65); White Blood Count 10.35 10^3/uL (3.29-11.43)
[2024-01-15 13:38] LABS: Alanine Aminotransferase < 5 U/L (0-33); Alkaline Phosphatase 62 U/L (35-105); Anion Gap 16.8 (5-19); Aspartate Amino Transferase 11 U/L (0-32); Blood Urea Nitrogen 12 mg/dL (8-23); Calcium 9.5 mg/dL (8.5-10.5); Carbon Dioxide 22 mmol/L (22-29); Chloride 98 mmol/L (98-107); Globulin 3.1 g/dL (1.3-4.6); Glomerular Filtration Rate 83.5 mL/min (90-130); Glucose 116 mg/dL (65-115); Magnesium 1.8 mg/dL (1.7-2.3); Osmolality Calculated 277 mOsm/kg (285-295); Potassium 3.8 mmol/L (3.5-5.1); Sodium 133 mmol/L (136-145); Total Bilirubin 0.3 mg/dL (0.15-1.2); Total Protein 7.1 g/dL (6.6-8.7)
[2024-01-15 13:41] LABS: Bilirubin Urine Negative (Negative); Blood Urine Negative (Negative); Glucose Urine UA Negative (Normal); Ketones Urine 1+ (Negative); Leukocyte Esterase Urine Trace (Negative); Nitrate Urine Negative (Negative); Protein Urine Trace (Negative); Specific Gravity, Urine 1.015 (1.005-1.030); Urine Appearance Clear (CLEAR); Urine Color Yellow (Yellow); Urobilinogen Urine 0.2 mg/dL (Negative); pH Urine >=9.0 (5-7)
[2024-01-15 13:43] LABS: Add Urine Microscopic? YES; Bacteria Urine None Seen /hpf; RBC Urine 0-2 /hpf (0-2); Squamous Epithelial Cell Urine 0-5 /hpf (0-5); WBC Urine 0-5 /hpf (0-5)
[2024-01-15 13:47] LABS: Troponin(5th) Baseline 11 ng/L (0-10)
[2024-01-15 13:48] LABS: Amphetamines Screen Urine Negative (Negative); Barbiturates Screen Urine Negative (Negative); Benzodiazepines Screen Urine Negative (Negative); Cocaine Screen Urine Negative (Negative); Opiate Screen Urine Positive (Negative); PCP Screen Urine Negative (Negative); THC Screen Urine Negative (Negative)
--- NOTE | 2024-01-15 13:53 | ECG_ITS ---
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 Measurements Intervals [place] Rate: 80 P: 70 NM: 151 QRS: 37 QRSD: 92 T: 45 QT: 396 QTc: 458 Interpretive Statements SINUS RHYTHM Compared to ECG 01/15/2024 12:03:40 No significant changes Electronically Signed On 01-17-2024 20:53:41 DRY CLEANING TEACHER by Jean Claude Crow M.D. [email or web address]
--- NOTE | 2024-01-15 13:55 | XR_ITS ---
WS: [id number] Right shoulder, 3 views, 01/15/2024 Clinical Data: pain hx of dislocation Comparison: Right shoulder, 10/16/2023 Findings: No fractures or dislocations are seen. The AC joint is normal. There is osteoarthritic change of the glenohumeral joint with irregularity of the humeral head and the glenoid rim. There is superior sublu xation of the humeral head probably from rotator cuff atrophy. The adjacent right clavicle, right sca pula and ribs are normal. The soft tissues are unremarkable. XR/XR shoulder RT min 2V* [id number] Impression: No change in osteoarthritis of the glenohumeral joint.
[2024-01-15] MEDS: ciprofloxacin 500 mg Tablet PO (15:03)
[2024-01-15] MEDS: morphine 4 mg/mL SDV 1 mL IVP (15:06)
[2024-01-15] MEDS: ondansetron 2 mg/ML SDV 2 mL 4 MG IVP (15:06)
[2024-01-15 15:26] LABS: Troponin 5 2HR 8.54 ng/L (0-10); Troponin 5 2HR Delta -2.46 ABS# (0-10)
== END 2024-01-15 15:19 | disposition home or self-care (01) ==
PROVIDERS: Emergency Provider Emergency Medicine; PCP Family Medicine
DX: N30.00 Acute cystitis without hematuria (principal); R40.4 Transient alteration of awareness; Z79.01 Long term (current) use of anticoagulants; I10 Essential (primary) hypertension; Z79.82 Long term (current) use of aspirin
CPT/HCPCS: 36415; 36416; 71045; 73030; 80053; 80306; 81001; 82962; 83735; 84484; 85025; 93005; 96374; 96375; 99285; J2270; J2405

== ENCOUNTER → 2024-01-19 09:31 | Outpatient (BNVA) | payer MEDICARE, SELFPAY | PROVIDERS: PCP Family Medicine; Visit Provider Student in an Organized Health Care Education/Training Program | DX: Z96.612 Presence of left artificial shoulder joint (principal) | CPT/HCPCS: 73030; 99024 ==

== ENCOUNTER → 2024-02-09 12:38 | Outpatient (BNVA) | payer MEDICARE, SELFPAY | PROVIDERS: PCP Family Medicine; Visit Provider Family Medicine | DX: R42 Dizziness and giddiness (principal); R35.0 Frequency of micturition; R59.0 Localized enlarged lymph nodes | CPT/HCPCS: 81000; 87086 ==

== ENCOUNTER → 2024-02-10 11:10 | Outpatient (BNVA) | payer MEDICARE, SELFPAY | PROVIDERS: PCP Family Medicine; Visit Provider Internal Medicine Cardiovascular Disease | DX: I11.0 Hypertensive heart disease with heart failure (principal); I50.30 Unspecified diastolic (congestive) heart failure; Z79.01 Long term (current) use of anticoagulants; I48.91 Unspecified atrial fibrillation; I65.21 Occlusion and stenosis of right carotid artery; E78.00 Pure hypercholesterolemia, unspecified; Z87.891 Personal history of nicotine dependence | CPT/HCPCS: 99214 ==

== ENCOUNTER 2024-02-11 14:29 | Outpatient (RCR) | payer MEDICARE, SELFPAY | END 2024-03-01 23:59 | disposition home or self-care (01) | LOC: SPT 14:29 | PROVIDERS: PCP Family Medicine; Visit Provider Student in an Organized Health Care Education/Training Program | DX: Z47.1 Aftercare following joint replacement surgery (principal); Z96.612 Presence of left artificial shoulder joint | CPT/HCPCS: 97110; 97161 ==

== ENCOUNTER 2024-02-12 12:24 | Outpatient (CLI) | payer MEDICARE, SELFPAY ==
--- NOTE | 2024-02-12 14:30 | USCV_ITS ---
Trish Rocha Age: 68 Gender: F : 1955 Exam Date: 02/12/2024 12:39 Ordering Phys: Jean Claude Crow MD ([email or web address]) Technologist: ELIAS Exam Location: [facility] [place] Indication: bruit Risk Factors: Previous Vascular Surgery: Right Brachial BP: / Left Brachial BP: / Right Left Velocity (cm/s) Spectral Plaque Velocity (cm/s) Spectral Plaque Syst/Diast Broadening Syst/Diast Broadening 60.80/ 18.00 Prox CCA 84.80 / 18.10 80.90/ 19.10 Mid CCA 89.20 / 23.60 71.10/ 19.30 Distal CCA 106.70/ 21.40 105.40/24.10 Prox ICA 147.00/ 39.00 113.00/25.90 Mid ICA 115.80/ 31.80 80.80/ 26.50 Distal ICA 92.10 / 31.60 193.00 ECA 135.40 1.50 ICA/CCA 1.40 Antegrade Vertebral Antegrade 57.80/ 22.80 cm/s 75.80/ 23.20 cm/s Tri Subclavian Tri 242.8 134.3 0 0 FINDINGS Comparison: none available. Diffuse bilateral scattered calcified plaque and intimal thickening throughout the common carotid arteries and extending through the bifurcation. Mild elevation of systolic velocity by plaque in the bifurcations. Antegrade vertebral arteries. CONCLUSIONS Bilateral ICA stenosis less than 50%. Mild diffuse plaque in the carotid arteries. Dr. Gabriela Spear DO (Electronically Signed) Final Date: 12 February 2024 13:41 S
== END 2024-02-12 12:25 | disposition home or self-care (01) ==
LOC: RAD 12:26
PROVIDERS: PCP Family Medicine; Visit Provider Internal Medicine Cardiovascular Disease
DX: I65.23 Occlusion and stenosis of bilateral carotid arteries (principal); I65.03 Occlusion and stenosis of bilateral vertebral arteries
CPT/HCPCS: 93880

== ENCOUNTER 2024-02-17 14:49 | Outpatient (CLI) | payer MEDICARE, SELFPAY ==
--- NOTE | 2024-02-17 15:00 | CTR_ITS ---
PROCEDURE INFORMATION: Exam: CT Neck With Contrast Exam date and time: 02/17/2024 2:56 PM Age: 68 years old Clinical indication: Mass, lump, or swelling in neck; Patient HX: Swelling in anterior aspect lymph nodes 2 weeks, dizzinessness. No noticeable swelling today; Additional info: Neck lymphadenopathy TECHNIQUE: Imaging protocol: Computed tomography of the neck with contrast. Radiation optimization: All CT scans at this facility use at least one of these dose optimization techniques: automated exposure control; mA and/or kV adjustment per patient size (includes targeted exams where dose is matched to clinical indication); or iterative reconstruction. Contrast material: OMNI 350; Contrast volume: 100 ml; Contrast route: INTRAVENOUS (IV); COMPARISON: MR head wo/w con [id number] 11/16/2023 4:59 PM RADIATION DOSE METRICS: Total DLP (mGy-cm): 126.22 FINDINGS: Salivary glands: Normal. Glands are normal in size. Pharynx: Unremarkable. No significant tonsillar enlargement. Prevertebral and retropharyngeal spaces: Unremarkable. Larynx: Unremarkable. Epiglottis is normal. Thyroid: Normal. No enlarged or calcified nodules. Trachea: Visualized trachea is unremarkable. Lungs: Unremarkable as visualized. Esophagus: The cervical esophagus is unremarkable. Lymph nodes: Unremarkable. No lymphadenopathy. Bones/joints: Unremarkable. No acute fracture. Soft tissues: Unremarkable. No significant soft tissue swelling. CT/CT neck w con* [id number] IMPRESSION: No acute findings.
[2024-02-17] MEDS: iohexol 350 mg/mL 500 mL Btl (per mL) IV (15:12)
== END 2024-02-17 14:50 | disposition home or self-care (01) ==
LOC: RAD 14:49
PROVIDERS: PCP Family Medicine; Visit Provider Family Medicine
DX: R59.0 Localized enlarged lymph nodes (principal)
CPT/HCPCS: 70491

== ENCOUNTER → 2024-02-18 13:21 | Outpatient (BNVA) | payer MEDICARE, SELFPAY | PROVIDERS: PCP Family Medicine; Visit Provider Physician Assistant | DX: M75.41 Impingement syndrome of right shoulder (principal) | CPT/HCPCS: 20610; 99213; J3301 ==

== ENCOUNTER → 2024-03-01 08:52 | Outpatient (BNVA) | payer MEDICARE, SELFPAY | PROVIDERS: PCP Family Medicine; Visit Provider Student in an Organized Health Care Education/Training Program | DX: Z96.612 Presence of left artificial shoulder joint (principal) | CPT/HCPCS: 73030; 99213 ==

== ENCOUNTER 2024-03-02 06:30 | Outpatient (RCR) | payer MEDICARE, SELFPAY | END 2024-04-01 23:59 | disposition home or self-care (01) | LOC: SPT 06:30 | PROVIDERS: PCP Family Medicine; Visit Provider Student in an Organized Health Care Education/Training Program | DX: Z47.1 Aftercare following joint replacement surgery (principal); Z96.612 Presence of left artificial shoulder joint | CPT/HCPCS: 97110 ==

== ENCOUNTER → 2024-03-21 12:47 | Outpatient (BNVA) | payer MEDICARE, SELFPAY | PROVIDERS: PCP Family Medicine; Visit Provider Family Medicine | DX: E03.9 Hypothyroidism, unspecified (principal); R63.4 Abnormal weight loss; L65.9 Nonscarring hair loss, unspecified | CPT/HCPCS: 80053; 84443; 85025; 86140 ==

== ENCOUNTER 2024-04-02 06:00 | Outpatient (RCR) | payer MEDICARE, SELFPAY | END 2024-04-29 23:59 | disposition home or self-care (01) | LOC: SPT 06:00 | PROVIDERS: PCP Family Medicine; Visit Provider Student in an Organized Health Care Education/Training Program | DX: Z47.1 Aftercare following joint replacement surgery (principal); Z96.612 Presence of left artificial shoulder joint | CPT/HCPCS: 97110 ==

== ENCOUNTER → 2024-04-08 09:12 | Outpatient (BNVA) | payer MEDICARE, SELFPAY | PROVIDERS: PCP Family Medicine; Visit Provider Physician Assistant | DX: Z96.612 Presence of left artificial shoulder joint (principal); M75.41 Impingement syndrome of right shoulder; M12.812 Other specific arthropathies, not elsewhere classified, left shoulder | CPT/HCPCS: 73030; 99213 ==

== ENCOUNTER 2024-04-14 14:47 | Outpatient (CLI) | payer MEDICARE, SELFPAY ==
--- NOTE | 2024-04-14 15:30 | MR_ITS ---
WS: [id number] MRI RIGHT SHOULDER HISTORY: Right shoulder Rotator cuff impingement COMPARISON: RIGHT shoulder radiograph 04/08/2024 TECHNIQUE: Multiplanar sequences of the shoulder joint are submitted. Study compromised by breathing motion artifact. Moderate to severe AC joint arthritis. Osteophyte encroachment upon the supraspinatus muscle. There is a large amount of fluid in the subacromial and subdeltoid bursa. There is extensive fluid surrounding the humeral head extending into the axillary pouch. Numerous intra-articular bodies are noted within the fluid. Biceps tendon is not identified at the bicipital groove. No os acromion. Severe degenerative changes involving the humeral head. Loss of the normal cortex in the cartilage. Numerous subchondral cystic changes. Advanced glenohumeral joint arthritis with additional subchondral cystic changes and loss of cartilage at the glenoid. Severe rotator cuff muscle atrophy. Teres minor is slightly better preserved than the remaining muscles. Complete supraspinatus tendon tear with retraction to the medial humeral head. Infraspinatus tendon is not identified beyond the medial humeral head. Complete tear of the subscapularis tendon at the coracohumeral interval. The more proximal tendon is markedly thickened with increased signal. Dislocated biceps tendon is thought to be medial to the subscapularis tendon. Labrum is poorly visualized. The superior labrum and inferior labrum are not identified. In part this may be due to the motion but suspect tears. Posterior labrum appears intact. The anterior labrum is heterogeneous and lobulated. MR/MR shoulder RT wo con* [id number] IMPRESSION: 1. Severe advanced degenerative changes at the glenohumeral joint. Loss of car tilage with subchondral cystic changes in the humeral head and glenoid. 2. Moderate to severe AC joint arthropathy. 3. Complete tears with retraction involving the supraspinatus and infraspinatu s tendons to the medial humeral head. Additional subscapularis tendon tear at a narrow coracohumeral interval. 4. Dislocated biceps tendon. 5. Severe rotator cuff muscle atrophy. 6. Large shoulder joint effusion with intra-articular bodies. Additional fluid in the subscapularis and subdeltoid bursa.
== END 2024-04-14 14:48 | disposition home or self-care (01) ==
LOC: RAD 14:49
PROVIDERS: PCP Family Medicine; Visit Provider Physician Assistant
DX: M75.41 Impingement syndrome of right shoulder (principal); M19.011 Primary osteoarthritis, right shoulder; R93.6 Abnormal findings on diagnostic imaging of limbs; M75.121 Complete rotator cuff tear or rupture of right shoulder, not specified as traumatic; M62.511 Muscle wasting and atrophy, not elsewhere classified, right shoulder; M25.411 Effusion, right shoulder; M25.711 Osteophyte, right shoulder
CPT/HCPCS: 73221

== ENCOUNTER 2024-04-25 10:16 | Inpatient (IN) | payer MEDICARE, SELFPAY ==
[2024-04-25] VITALS (25 sets, daily range): BP systolic 124–179; BP diastolic 56–109; PULSE 62–116; RESP 14–20; TEMP 36.7; O2SAT 94–100; BMI 26.0
--- NOTE | 2024-04-25 10:48 | ECG_ITS ---
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
--- NOTE | 2024-04-25 10:49 | XRR_ITS ---
PROCEDURE INFORMATION: Exam: XR Chest Exam date and time: 04/25/2024 10:55 AM Age: 68 years old Clinical indication: Shortness of breath; Additional info: Dizzy TECHNIQUE: Imaging protocol: Radiologic exam of the chest. Views: 1 view. COMPARISON: CR XR chest 1V portable [id number] 01/15/2024 12:48 PM FINDINGS: Lungs: Unremarkable. No consolidation. Pleural spaces: Unremarkable. No pleural effusion. No pneumothorax. Heart/Mediastinum: Unremarkable. No cardiomegaly. Bones/joints: Nothing acute. No change. XR/XR chest 1V portable [id number] IMPRESSION: No acute disease.
--- NOTE | 2024-04-25 11:06 | ECG_ITS ---
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
--- NOTE | 2024-04-25 11:06 | CT_ITS ---
WS: [id number] CT HEAD TECHNIQUE: Noncontrast CT of the head obtained from the skullbase to the vertex. CLINICAL INFORMATION: vertigo COMPARISON: CT 11/14/2023 DLP: 1072.[address] scans at [facility] use at least one of these dose optimization techniques: automated exposure control; mA and/or kV adjustment per patient size (includes targeted exams where dose is matched to clinical indication); or iterative reconstruction. FINDINGS: No evidence of intracranial hemorrhage or mass effect. Ventricular system and basal cisterns are patent. Mild small vessel changes with mild parenchymal volume loss worse in the frontal lobes. No extra-axial fluid collections. No evidence of mass or mass effect. Normal steiner-white differentiation. Paranasal sinuses and mastoid air cells are well aerated. .Normal visualized soft tissues. CT/CT head wo con* [id number] IMPRESSION: 1. No evidence of intracranial hemorrhage or mass effect. 2. No acute intracranial findings.
--- NOTE | 2024-04-25 11:23 | W.ED.DIZZY ---
HPI - Dizziness General: Chief Complaint: Dizziness Stated Complaint: dizzy, high b/p, heart rate Time Seen by Provider: 04/25/24 10:58 Source: patient Mode of arrival: ambulatory Limitations: no limitations History of Present Illness: HPI Narrative: 68-year-old female who states that she has been having dizziness since yesterday afternoon. She states that the room is been spinning and she feels very unsteady on her feet. She states she had a history of high blood pressure and blood pressure has been running much higher than typical since yesterday as well. She denies any headache denies any slurred speech no focal weakness. States it is much worse with movement Associated symptoms: Denies chest pain, chills, headache(s), nausea or vomiting Related Data Home Medications ?Medication ?Instructions ?Recorded ?Confirmed atorvastatin 80 mg tablet 80 mg PO BEDTIME 10/23/23 04/25/24 nifedipine 60 mg tablet,extended 60 mg PO DAILY 10/23/23 04/25/24 release 24 hr quetiapine 100 mg tablet (Seroquel) 100 mg PO BEDTIME 10/23/23 04/25/24 aspirin 81 mg tablet,delayed 81 mg PO QAM 01/15/24 04/25/24 release ferrous sulfate 325 mg (65 mg 325 mg PO .EVERY OTHER DAY 01/15/24 04/25/24 iron) tablet metoprolol tartrate 100 mg tablet 100 mg PO BID 04/25/24 04/25/24 Previous Rx's ?Medication ?Instructions ?Recorded famotidine 20 mg tablet (Pepcid) 20 mg PO BID #180 tabs 06/10/23 hydralazine 50 mg tablet 75 mg (1.5 x 50 mg) PO TID #90 tabs 08/04/23 levothyroxine 25 mcg tablet 50 mcg (2 x 25 mcg) PO DAILY #90 08/04/23 tabs lisinopril 40 mg tablet 40 mg PO DAILY #30 tabs 08/31/23 left arm sling #1 ea 09/17/23 fluticasone propionate 50 2 spray intranasal DAILY #16 grams 10/23/23 mcg/actuation nasal spray,suspension hydrochlorothiazide 25 mg tablet 25 mg PO DAILY #30 tabs 11/17/23 carvedilol 12.5 mg tablet 12.5 mg PO BID #60 tabs 12/14/23 loratadine 10 mg tablet (Claritin) 10 mg PO DAILY #30 tabs 12/14/23 apixaban 5 mg tablet (Eliquis) 5 mg PO Q12H #60 tabs 12/31/23 magnesium oxide 400 mg (241.3 mg See Rx Instructions .Route 01/26/24 magnesium) tablet .COMPLEX #30 tabs oxycodone 5 mg tablet 10 mg (2 x 5 mg) PO Q6H PRN pain 7 02/25/24 days #56 tabs meloxicam 15 mg tablet 15 mg PO DAILY #30 tabs 03/28/24 hydrocodone 5 mg-acetaminophen 325 1 tab PO Q8H PRN pain 30 days #90 04/04/24 mg tablet tabs escitalopram oxalate 10 mg tablet 10 mg PO DAILY #60 tabs 04/18/24 trazodone 100 mg tablet See Rx Instructions .Route 04/18/24 .COMPLEX #30 tabs Allergies Allergy/AdvReac Type Severity Reaction Status Date / Time No Known Drug Allergies Allergy Unknown Verified 04/25/24 10:34 Review of Systems Const: Denies: fever(s), chills, body aches or change in appetite Eyes: Denies: blurry vision or eye discomfort ENMT: Denies: throat pain or dental pain Card: Denies: chest pain Resp: Denies: dyspnea GI: Denies: abdominal pain, nausea, vomiting or diarrhea Musc: Denies: neck pain or back pain Skin/Breast: Denies: rash Neuro: Reports: vertigo; Denies: headache(s) PFS ED PFSH: Medical History Hypothyroidism Atrial fibrillation with RVR Anemia Hypotension Postoperative anemia Atrial fibrillation Right-sided lacunar infarction Severe pulmonary hypertension Diastolic heart failure On Coumadin for atrial fibrillation Elevated d-dimer Elevated troponin Dyspnea Hyponatremia Atrial fibrillation with RVR Dehydration Hyponatremia Altered mental status Subacromial impingement of left shoulder Rotator cuff tear, left Bipolar 2 disorder Anxiety Diabetes Hypercholesterolemia Syncope Urgency of urination Hypertension Surgical History S/P shoulder surgery Hx of section x 3 Hx of bilateral cataract extraction H/O gastric bypass Family History Grandmother Cancer Hyperlipidemia Hypertension Mother Hypertension CAD (coronary artery disease) unknown age of onset Denies family history of Diabetes Clotting disorder Dementia Chronic kidney disease (CKD) Suicide Anesthesia complication Bleeding disorder Lung disease Stroke Social History Smoking and tobacco/nicotine status: former use of tobacco/nicotine Alcohol intake: never Substance/Drug Use: never Marital status: Physical Exam Const: COMMON NORMALS: patient oriented x3 HENMT: COMMON NORMALS: normocephalic and atraumatic HEAD & SCALP: normocephalic and atraumatic Eye: COMMON NORMALS: Equal, round and reactive pupils present and EOMs intact bilaterally PUPIL: Yes Equal, round and reactive pupils present OTHER: Nystagmus when looking to the left Neck/C-Spine: COMMON NORMALS: full ROM and supple Chest: COMMONS NORMALS: normal inspection of the chest and normal palpation of entire chest wall Resp: COMMON NORMALS: normal respiratory effort, No retractions, No use of accessory muscles and clear to auscultation bilaterally AUSCULTATION: clear to auscultation bilaterally Cardio: COMMON NORMALS: regular rate, regular rhythm and No murmurs present (Cardio) RATE: regular rate RHYTHM: regular rhythm GI: COMMON NORMALS: Normal to inspection, nondistended, normoactive bowel sounds present, Soft to palpation, non-tender and no masses PALPATION: Yes Soft to palpation Extremity: COMMON NORMALS: normal to inspection and full ROM Neuro: COMMON NORMALS: patient oriented x3, moves all extremities and no focal motor deficits Psych: COMMON NORMALS: mental status grossly normal, Normal thought process present and cooperative THOUGHT PROCESS: Normal thought process present Skin: COMMON NORMALS: no rashes or lesions noted and no wounds GENERAL SKIN EXAM: no rashes or lesions noted Course Vital Signs: Vital signs: Vital Signs Temperature 98.1 F 04/25/24 10:23 Pulse Rate 86 04/25/24 15:36 Respiratory Rate 18 04/25/24 15:36 Blood Pressure 176/73 04/25/24 15:36 Pulse Oximetry 97 04/25/24 15:36 Oxygen Delivery Me thod Room Air 04/25/24 10:23 MDM - Dizziness Medical Decision Making Patient presents here with dizziness she is having some ataxia here in vertigo no other focal deficits she is not a lytic candidate as her symptoms started yesterday no occlusion noted on CTA did speak to hospitalist will admit for further workup Medical Records I reviewed the patient's medical records. Lab Data I reviewed the patient's lab results. 04/25/24 12:29 04/25/24 12:29 Radiology Impressions Chest X-Ray 04/25/24 10:49 IMPRESSION: No acute disease. Head CT 04/25/24 11:06 IMPRESSION: 1. No evidence of intracranial hemorrhage or mass effect. 2. No acute intracranial findings. Head/Neck CTA 04/25/24 13:45 IMPRESSION: 1. RIGHT ICA stenosis less than 50%. 2. LEFT ICA stenosis 50 to 55% with moderate calcified atheromatous plaque. 3. Both vertebral arteries are patent. 4. Mild intracranial atheromatous disease. No flow-limiting intracranial stenosis. Laboratory Results WBC 9.63 10^3/uL (3.29-11.43) 04/25/24 12:29 RBC 3.67 10^6/uL (3.85-5.65) L 04/25/24 12:29 Hgb 10.60 g/dL (11.27-16.99) L 04/25/24 12:29 Hct 33.5 % (36-47) L 04/25/24 12:29 MCV 91.3 fl (85-98) 04/25/24 12:29 MCH 28.9 pg (27-33) 04/25/24 12:29 MCHC 31.6 g/dL (30-55) 04/25/24 12:29 RDW 14.6 % (12.1-15.1) 04/25/24 12:29 Plt Count 359 10^3/cmm (157-399) 04/25/24 12:29 MPV 9.4 fL (7.4-10.4) 04/25/24 12: Neut % (Auto) 67.4 % 04/25/24 12: Lymph % (Auto) 21.6 % 04/25/24 12: [place] % (Auto) 9.6 % 04/25/24 12: Eos % (Auto) 0.8 % 04/25/24 12: Baso % (Auto) 0.3 % 04/25/24 12:29 Neut # (Auto) 6.49 10^3/uL (1.8-7.7) 04/25/24 12: Lymph # (Auto) 2.1 10^3/uL (0.8-4.8) 04/25/24 12: [place] # (Auto) 0.9 10^3/uL (0.2-0.9) 04/25/24 12: Eos # (Auto) 0.1 10^3/uL (0.0-0.8) 04/25/24 12: Baso # (Auto) 0.0 10^3/uL (0.0-0.1) 04/25/24 12: Nucleated RBC % (auto) 0 % 04/25/24 12: Nucleated RBCs # 0.0 /100WBC 04/25/24 12: PT 15.80 SECONDS (12.1-14.9) H 04/25/24 12: INR 1.18 (0.8-1.2) 04/25/24 12: Sodium 135 mmol/L (136-145) L 04/25/24 12: Potassium 3.8 mmol/L (3.5-5.1) 04/25/24 12: Chloride 101 mmol/L (98-107) 04/25/24 12: Carbon Dioxide 22 mmol/L (22-29) 04/25/24 12: Anion Gap 15.8 (5-19) 04/25/24 12: BUN 16 mg/dL (8-23) 04/25/24 12: Creatinine 0.5 mg/dL (0.5-0.9) 04/25/24 12: GFR Calculation 123.1 mL/min (90-130) 04/25/24 12: Glucose 105 mg/dL (65-115) 04/25/24 12: Calculated Osmolality 282 mOsm/kg (285-295) L 04/25/24 12: Calcium 9.3 mg/dL (8.5-10.5) 04/25/24 12:29 Total Bilirubin 0.4 mg/dL (0.15-1.2) 04/25/24 12:29 AST 13 U/L (0-32) 04/25/24 12: ALT 6 U/L (0-33) 04/25/24 12:29 Alkaline Phosphatase 54 U/L (35-105) 04/25/24 12:29 Troponin T Baseline 9 ng/L (0-10) 04/25/24 12:29 Troponin T 120 Minute 8.94 ng/L (0-10) 04/25/24 14:18 Delta Troponin T -0.06 ABS# (0-10) L 04/25/24 14:18 Total Protein 6.8 g/dL (6.6-8.7) 04/25/24 12:29 Albumin 3.9 g/dL (3.5-5.2) 04/25/24 12:29 Globulin 2.9 g/dL (1.3-4.6) 04/25/24 12:29 Urine Color Dark yellow (Yellow) A 04/25/24 11:52 Urine Appearance Clear (CLEAR) 04/25/24 11:52 Urine pH 8.5 (5-7) A 04/25/24 11:52 Ur Specific [place] 1.018 (1.005-1.030) 04/25/24 11:52 Urine Protein Negative (Negative) 04/25/24 11:52 Urine Glucose (UA) Negative (Normal) 04/25/24 11:52 Urine Ketones Negative (Negative) 04/25/24 11:52 Urine Blood Negative (Negative) 04/25/24 11:52 Urine Nitrate Negative (Negative) 04/25/24 11:52 Urine Bilirubin Negative (Negative) 04/25/24 11:52 Urine Urobilinogen 0.2 mg/dL (Negative) 04/25/24 11:52 Ur Leukocyte Esterase 2+ (Negative) A 04/25/24 11:52 Urine RBC 0-4 /hpf (0-2) H 04/25/24 11:52 Urine WBC 5-10 /hpf (0-5) H 04/25/24 11:52 Ur Squamous Epith Cells 0-4 /hpf (0-5) H 04/25/24 11:52 Amorphous Sediment Not Reportable 04/25/24 11:52 Urine Bacteria Trace /hpf (NONE) 04/25/24 11:52 Hyaline Casts 0-4 /lpf H 04/25/24 11:52 Urine Mucus None /hpf 04/25/24 11:52 All radiology interpretation(s) finalized by discharge EKG Data EKG 1: I personally reviewed and interpreted this EKG as follows: EKG interpretation date: 04/25/24 EKG interpretation time: 11:17 Interpretation: sinus bradyhr [address] elevation qrs 90 qtc 419 Discharge Plan Discharge Patient Disposition: Admitted As Inpatient Clinical Impression: Dizziness, Hypertension Condition: Stable Prescriptions: No Action (DME) left arm sling See Rx Instructions .Route .MEDSUPPLY Qty: 1 0RF Rx Instructions: As directed Eliquis 5 mg tablet 5 mg PO Q12H Qty: 60 11RF famotidine [Pepcid] 20 mg tablet 20 mg PO BID Qty: 180 11RF hydralazine 50 mg tablet 75 mg PO TID Qty: 90 11RF levothyroxine 25 mcg tablet 50 mcg PO DAILY Qty: 90 11RF lisinopril 40 mg tablet 40 mg PO DAILY Qty: 30 11RF fluticasone propionate 50 mcg/actuation spray,suspension 2 spray intranasal DAILY Qty: 16 11RF carvedilol 12.5 mg tablet 12.5 mg PO BID Qty: 60 11RF loratadine [Claritin] 10 mg tablet 10 mg PO DAILY Qty: 30 11RF magnesium oxide 400 mg (241.3 mg magnesium) tablet See Rx Instructions .ROUTE .COMPLEX Qty: 30 11RF Dose Instruction: TAKE 1 TABLET BY MOUTH DAILY Rx Instructions: TAKE 1 TABLET BY MOUTH DAILY oxycodone 5 mg tablet 10 mg PO Q6H PRN (Reason: pain) 7 Days Qty: 56 0RF Rx Instructions: 1 tab moderate pain 2 tabs severe pain meloxicam 15 mg tablet 15 mg PO DAILY Qty: 30 0RF hydrocodone-acetaminophen 5-325 mg tablet 1 tab PO Q8H PRN (Reason: pain) 30 Days Qty: 90 0RF escitalopram oxalate 10 mg tablet 10 mg PO DAILY Qty: 60 2RF trazodone 100 mg tablet See Rx Instructions .ROUTE .COMPLEX Qty: 30 11RF Dose Instruction: TAKE 1 TABLET BY MOUTH ONCE DAILY AT BEDTIME Rx Instructions: TAKE 1 TABLET BY MOUTH ONCE DAILY AT BEDTIME quetiapine [Seroquel] 100 mg tablet 100 mg PO BEDTIME atorvastatin 80 mg tablet 80 mg PO BEDTIME nifedipine 60 mg tablet extended release 24hr 60 mg PO DAILY hydrochlorothiazide 25 mg Tablet 25 mg PO DAILY Qty: 30 0RF aspirin 81 mg tablet,delayed release (DR/EC) 81 mg PO QAM ferrous sulfate 325 mg (65 mg iron) tablet 325 mg PO .EVERY OTHER DAY metoprolol tartrate 100 mg tablet 100 mg PO BID Referrals: Obey Rose MD [Primary Care Provider] - Print Language: Citizen Of [place] Coding Level of Care Code ED Ripsawyer for Mayela Jacobsen
[2024-04-25] MEDS: meclizine 25 mg tablet 50 MG PO (12:01)
[2024-04-25] MEDS: hyDRALAzine 20 mg/mL INJ 1 mL 10 MG IVP (12:01)
[2024-04-25 12:43] LABS: Bilirubin Urine Negative (Negative); Blood Urine Negative (Negative); Glucose Urine UA Negative (Normal); Ketones Urine Negative (Negative); Leukocyte Esterase Urine 2+ (Negative); Nitrate Urine Negative (Negative); Protein Urine Negative (Negative); Specific Gravity, Urine 1.018 (1.005-1.030); Urine Appearance Clear (CLEAR); Urobilinogen Urine 0.2 mg/dL (Negative); pH Urine 8.5 (5-7)
[2024-04-25] MEDS: morphine 4 mg/mL SDV 1 mL IVP (13:10)
[2024-04-25 13:18] LABS: Basophils % 0.3 %; Eosinophils # 0.1 10^3/uL (0.0-0.8); Eosinophils % 0.8 %; Hematocrit 33.5 % (36-47); Lymphocytes # 2.1 10^3/uL (0.8-4.8); Lymphocytes % 21.6 %; Mean Corpuscular HGB Conc 31.6 g/dL (30-55); Mean Corpuscular Hemoglobin 28.9 pg (27-33); Mean Corpuscular Volume 91.3 fl (85-98); Mean Platelet Volume 9.4 fL (7.4-10.4); Monocytes # 0.9 10^3/uL (0.2-0.9); Monocytes % 9.6 %; Neutrophils # 6.49 10^3/uL (1.8-7.7); Neutrophils % 67.4 %; Nucleated Red Blood Cells % 0 %; Platelet Count 359 10^3/cmm (157-399); Red Blood Count 3.67 10^6/uL (3.85-5.65); Red Cell Distribution Width 14.6 % (12.1-15.1); White Blood Count 9.63 10^3/uL (3.29-11.43)
[2024-04-25 13:25] LABS: UA Manual Slide Review YES; UA Slide Review UA Slide Review Perf; Urine Color Dark Yellow (Yellow)
[2024-04-25 13:26] LABS: Add Urine Microscopic? YES; Bacteria Urine TRACE /hpf; RBC Urine 0-4 /hpf (0-2); Squamous Epithelial Cell Urine 0-4 /hpf (0-5)
[2024-04-25 13:27] LABS: Add Urine Culture? No; Hyaline Casts Urine 0-4 /lpf
[2024-04-25 13:37] LABS: INR 1.18 (0.8-1.2)
[2024-04-25 13:42] LABS: Alanine Aminotransferase 6 U/L (0-33); Albumin Level 3.9 g/dL (3.5-5.2); Alkaline Phosphatase 54 U/L (35-105); Anion Gap 15.8 (5-19); Aspartate Amino Transferase 13 U/L (0-32); Blood Urea Nitrogen 16 mg/dL (8-23); Calcium 9.3 mg/dL (8.5-10.5); Carbon Dioxide 22 mmol/L (22-29); Chloride 101 mmol/L (98-107); Creatinine Clr Calc Pharmacy 57.8685; Globulin 2.9 g/dL (1.3-4.6); Glomerular Filtration Rate 123.1 mL/min (90-130); Glucose 105 mg/dL (65-115); Osmolality Calculated 282 mOsm/kg (285-295); Potassium 3.8 mmol/L (3.5-5.1); Sodium 135 mmol/L (136-145); Total Bilirubin 0.4 mg/dL (0.15-1.2); Total Protein 6.8 g/dL (6.6-8.7)
--- NOTE | 2024-04-25 13:45 | CT_ITS ---
WS: [id number] CTA HEAD AND NECK TECHNIQUE: Contrast enhanced CTA of the head and neck with coronal and sagittal reformatted images and maximum intensity projection (MIP) images. NASCET criteria utilized. CLINICAL INFORMATION: harris/vertigo COMPARISON: None. DLP: 360.[address] scans at [facility] use at least one of these dose optimization techniques: automated exposure control; mA and/or kV adjustment per patient size (includes targeted exams where dose is matched to clinical indication); or iterative reconstruction. FINDINGS: RIGHT: RIGHT common carotid artery is patent. Moderate calcified atheromatous plaque RIGHT carotid bulb extending into the ICA with less than 50% RIGHT ICA stenosis. RIGHT ICA remains patent to the skull base. LEFT: LEFT common carotid artery is patent. Dense atheromatous plaque LEFT carotid bulb extending into the ICA. LEFT ICA stenosis measures approximately 50-55 %. LEFT ICA remains patent to the skull base. Codominant and patent vertebral arteries bilaterally. Proximal basilar artery is patent. Proximal subclavian arteries are patent. Lung apices are well aerated. Aortic arch calcification. INTRACRANIAL CTA: Distal vertebral arteries are patent. Basilar artery is patent. Normal vascularity to the CASE WORK AIDE territory bilaterally. Mild segmental stenosis LEFT posterior cerebral artery. Distal vessels remain patent. Both ICAs are patent at the skull base. Mild cavernous carotid calcification. Normal vascularity to the OSKAR territory. Normal vascularity to the MCA territory bilaterally. No evidence of proximal flow-limiting stenosis. Small chronic appearing infarct RIGHT cerebellum. CT/CT angio headneck* [id number] IMPRESSION: 1. RIGHT ICA stenosis less than 50%. 2. LEFT ICA stenosis 50 to 55% with moderate calcified atheromatous plaque. 3. Both vertebral arteries are patent. 4. Mild intracranial atheromatous disease. No flow-limiting intracranial steno sis.
[2024-04-25] MEDS: ketorolac 30 mg/mL INJ 15 MG IVP (13:56)
[2024-04-25] MEDS: metoclopramide 5 mg/mL SDV 2 mL IVP (13:57)
[2024-04-25] MEDS: diphenhydrAMINE 50 mg/mL SDV 1mL 25 MG IVP (13:57)
--- NOTE | 2024-04-25 14:02 | ECG_ITS ---
[facility]24[facility]25 Pat Name: Trish Rocha Department: Room: Gender: Female Survey Methodologist: : 1955 Requested By: Alexandria Carmona Order Number: [id number] Reading MD: GENEVIEVE EDMONDS Measurements Intervals [place] Rate: 60 P: 59 NE: 157 QRS: 55 QRSD: 90 T: 52 QT: 458 QTc: 459 Interpretive Statements SINUS RHYTHM Compared to ECG 04/25/2024 11:17:14 Sinus bradycardia no longer present Electronically Signed On 04-26-2024 23:35:35 MEDIA RELATIONS MANAGER by GENEVIEVE EDMONDS [email or web address]
[2024-04-25 14:53] LABS: Troponin(5th) Baseline 9 ng/L (0-10)
[2024-04-25] MEDS: iohexol 350 mg/mL 500 mL Btl (per mL) IV (14:54)
[2024-04-25 15:21] LABS: Troponin 5 2HR 8.94 ng/L (0-10)
[2024-04-25 15:23] LABS: Troponin 5 2HR Delta -0.06 ABS# (0-10)
[2024-04-25] MEDS: aspirin 81 mg Chew Tablet 324 MG PO (15:27)
--- NOTE | 2024-04-25 16:02 | ECG_ITS ---
[facility] Date: 2024-04-25 Pat Name: Trish Rocha Department: Room: Gender: Female Bill Adjuster: : 1955 Requested By: Alexandria Carmona Order Number: [id number] Reading MD: GENEVIEVE EDMONDS Measurements Intervals [place] Rate: 68 P: 68 DE: 157 QRS: 70 QRSD: 92 T: 65 QT: 440 QTc: 471 Interpretive Statements SINUS RHYTHM WITH FREQUENT SUPRAVENTRICULAR PREMATURE COMPLEXES ABNORMAL RHYTHM ECG Compared to ECG 04/25/2024 14:57:13 No significant changes Electronically Signed On 04-26-2024 23:47:46 MANAGER WINTER by GENEVIEVE EDMONDS [email or web address]
--- NOTE | 2024-04-25 16:41 | PM.HP ---
Providers/Chief Complaint Admitting Physician: Shawn Campos MD Primary Care Provider: Obey Rose MD Chief Complaint: dizzy, high b/p, heart rate History of Present Illness Trish Rocha is a 68 year old female with a past medical history of atrial fibrillation on Eliquis, hypertension, hyperlipidemia, history of benign positional vertigo, history of anemia, who presents to [facility] due to left leg numbness, dizziness, unsteadiness. Currently patient is alert oriented x 3, following all commands, is at bedside, she does complain of left leg numbness, she does complain of dizziness, her [id number]-nv-[id number] is abnormal, has horizontal nystagmus, her NIH stroke scale is 3-4, patient is out of the tPA window, symptom onset was yesterday at 9:30 PM. She also tells me at this time at 9:30 PM yesterday, she checked her blood pressure and her blood pressure was high systolic into the 190s, and her heart rates were elevated into the 120s,. According to patient yesterday she was in [facility], she was at attending an event for her son, however his musical/ACT was canceled so they had returned to [place]. She tells me that about 930 last night, she noticed that her left leg was numb, she did not feel well, she felt dizzy, she had a headache, so she took a Tylenol PM and went to bed. She checked her blood pressure and heart rate as above. She also noticed chest palpitations. She tells me that she had a restless night, but denies feeling dizzy when rotating in bed. This morning when she woke up, she noticed that when getting up out of bed, she was unsteady on her feet she needed to grab onto things to help her balance, he also noticed that she continue to have numbness of her left leg, no specific weakness, no facial droop no slurring her words, no other weakness, but did continue to feel dizzy no nausea, no vomiting. She also rechecked her blood pressure and heart rate and her blood pressure read high, and her heart rates read high., She has been taking all her medications as prescribed, however she has not been able to refill her hydrochlorothiazide. Review of Systems Const: Denies: fever(s) or chills Eyes: Denies: change in vision Card: Reports: palpitations and irregular heart rhythm; Denies: chest pain GI: Denies: abdominal pain : Denies: flank pain Neuro: Reports: headache(s), numbness in extremities, sensory changes, lack of coordination, difficulty walking, dizziness and vertigo; Denies: weakness in extremities, Slurred speech present or difficulty communicating thoughts Medications/Allergies Home Medications ?Medication ?Instructions ?Recorded ?Confirmed ?Last Taken ?Type famotidine 20 mg tablet (Pepcid) 20 mg PO BID #180 tabs 06/10/23 04/25/24 01/15/24 Rx hydralazine 50 mg tablet 75 mg (1.5 x 50 mg) PO TID #90 tabs 08/04/23 04/25/24 01/15/24 Rx levothyroxine 25 mcg tablet 50 mcg (2 x 25 mcg) PO DAILY #90 08/04/23 04/25/24 01/15/24 Rx tabs lisinopril 40 mg tablet 40 mg PO DAILY #30 tabs 08/31/23 04/25/24 01/15/24 Rx left arm sling #1 ea 09/17/23 04/25/24 Unknown Rx atorvastatin 80 mg tablet 80 mg PO BEDTIME 10/23/23 04/25/24 01/14/24 History fluticasone propionate 50 2 spray intranasal DAILY #16 grams 10/23/23 04/25/24 01/15/24 Rx mcg/actuation nasal spray,suspension nifedipine 60 mg tablet,extended 60 mg PO DAILY 10/23/23 04/25/24 01/15/24 History release 24 hr quetiapine 100 mg tablet (Seroquel) 100 mg PO BEDTIME 10/23/23 04/25/24 01/14/24 History hydrochlorothiazide 25 mg tablet 25 mg PO DAILY #30 tabs 11/17/23 04/25/24 01/15/24 Rx carvedilol 12.5 mg tablet 12.5 mg PO BID #60 tabs 12/14/23 04/25/24 01/15/24 Rx loratadine 10 mg tablet (Claritin) 10 mg PO DAILY #30 tabs 12/14/23 04/25/24 01/15/24 Rx apixaban 5 mg tablet (Eliquis) 5 mg PO Q12H #60 tabs 12/31/23 04/25/24 01/15/24 Rx aspirin 81 mg tablet,delayed 81 mg PO QAM 01/15/24 04/25/24 01/15/24 History release ferrous sulfate 325 mg (65 mg 325 mg PO .EVERY OTHER DAY 01/15/24 04/25/24 01/14/24 History iron) tablet magnesium oxide 400 mg (241.3 mg See Rx Instructions .Route 01/26/24 04/25/24 Unknown Rx magnesium) tablet .COMPLEX #30 tabs oxycodone 5 mg tablet 10 mg (2 x 5 mg) PO Q6H PRN pain 7 02/25/24 04/25/24 Unknown Rx days #56 tabs meloxicam 15 mg tablet 15 mg PO DAILY #30 tabs 03/28/24 04/25/24 Unknown Rx hydrocodone 5 mg-acetaminophen 325 1 tab PO Q8H PRN pain 30 days #90 04/04/24 04/25/24 Unknown Rx mg tablet tabs escitalopram oxalate 10 mg tablet 10 mg PO DAILY #60 tabs 04/18/24 04/25/24 Unknown Rx trazodone 100 mg tablet See Rx Instructions .Route 04/18/24 04/25/24 Unknown Rx .COMPLEX #30 tabs metoprolol tartrate 100 mg tablet 100 mg PO BID 04/25/24 04/25/24 Unknown History Allergies Allergy/AdvReac Type Severity Reaction Status Date / Time No Known Drug Allergies Allergy Unknown Verified 04/25/24 10:34 PFSH Acute PFSH: Medical History Hypothyroidism Atrial fibrillation with RVR Anemia Hypotension Postoperative anemia Atrial fibrillation Right-sided lacunar infarction Severe pulmonary hypertension Diastolic heart failure On Coumadin for atrial fibrillation Elevated d-dimer Elevated troponin Dyspnea Hyponatremia Atrial fibrillation with RVR Dehydration Hyponatremia Altered mental status Subacromial impingement of left shoulder Rotator cuff tear, left Bipolar 2 disorder Anxiety Diabetes Hypercholesterolemia Syncope Urgency of urination Hypertension Surgical History S/P shoulder surgery Hx of section x 3 Hx of bilateral cataract extraction H/O gastric bypass Family History Grandmother Cancer Hyperlipidemia Hypertension Mother Hypertension CAD (coronary artery disease) unknown age of onset Denies family history of Diabetes Clotting disorder Dementia Chronic kidney disease (CKD) Suicide Anesthesia complication Bleeding disorder Lung disease Stroke Social History Smoking and tobacco/nicotine status: former use of tobacco/nicotine Alcohol intake: never Substance/Drug Use: never Marital status: Vitals/I&O/Wt Last Vital Signs Temp 98.1 F 04/25/24 10:23 Pulse 86 04/25/24 15:36 Resp 18 04/25/24 15:36 BP 166/69 04/25/24 16:30 Pulse Ox 97 04/25/24 16:30 O2 Del Method Room Air 04/25/24 10:23 Weight last 48 hrs Weight 62.596 kg Physical Exam Const: COMMON NORMALS: no acute distress and patient oriented x3 Eye: OTHER: horizontal nystagmus, pupils equal round reactive to light Neck/C-Spine: COMMON NORMALS: full ROM and no lymphadenopathy Resp: COMMON NORMALS: normal respiratory effort, No retractions, No use of accessory muscles and clear to auscultation bilaterally AUSCULTATION: clear to auscultation bilaterally Cardio: COMMON NORMALS: no JVD, regular rate, regular rhythm, S1 normal heart sound present and S2 normal heart sound present RATE: regular rate RHYTHM: regular rhythm HEART SOUNDS: S1 normal heart sound present and S2 normal heart sound present GI: COMMON NORMALS: Normal to inspection, nondistended, normoactive bowel sounds present, Soft to palpation and non-tender Extremity: COMMON NORMALS: no pedal edema Neuro: COMMON NORMALS: patient oriented x3, CN's II-XII intact bilaterally, moves all extremities and no focal motor deficits OTHER: Hymccv-oc-onty abnormal bilaterally, does have horizontal nystagmus Psych: COMMON NORMALS: mental status grossly normal Data 04/25/24 12:29 04/25/24 12:29 A&P Assessment and plan (1) Acute CVA (cerebrovascular accident): (2) Hypertension: (3) Diastolic heart failure: Qualifiers: Heart failure chronicity: unspecified Qualified Code(s): I50.30 - Unspecified diastolic (congestive) heart failure (4) Hypothyroidism: (5) Cystitis: Plan Acute cerebrovascular accident -Symptomatology sounds like posterior circulation stroke -Certainly benign positional vertigo could be playing a role given her nystagmus but she reports a history of BPPV, she has undergone different maneuvers and techniques to PT and that have intermittently helped CT head CT/CT head wo con* [id number] IMPRESSION: 1. No evidence of intracranial hemorrhage or mass effect. 2. No acute intracranial findings. -CTA head and neck CT/CT angio headneck* [id number] IMPRESSION: 1. RIGHT ICA stenosis less than 50%. 2. LEFT ICA stenosis 50 to 55% with moderate calcified atheromatous plaque. 3. Both vertebral arteries are patent. 4. Mild intracranial atheromatous disease. No flow-limiting intracranial stenosis. 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 -NIH stroke scale 3-4 - last known well normal 9:30 PM April 24, 2024 -Out of tPA window -Currently no evidence of atrial fibrillation, does have a history of A-fib Plan -Monitor closely -Telemetry monitoring -Neurochecks -Dysphagia screen -Speech therapy eval -PT OT -Cardiac echo -Will consider MRI of the brain based on clinical progress -Permissive hypertension, treat systolic blood pressures greater than 220 diastolic greater than 120 -She does have a risk of A-fib with RVR if so she will require an amiodarone drip -Aspirin, statin, Eliquis -Full code -Eliquis for DVT prophylaxis Urinary tract infection, Rocephin PDMP PDMP Reviewed: Not Reviewed Attestations Medical Necessity Statement*: Patient requires hospitalization, inpatient, greater than 2 midnights, for acute CVA, posterior circulation, UTI Diagnoses Acute CVA (cerebrovascular accident) I63.9 Hypertension I10 Diastolic heart failure, unspecified HF chronicity I50.30 Heart failure chronicity: unspecified Hypothyroidism E03.9 Cystitis N30.90
[2024-04-25 17:33] LABS: Procalcitonin 0.03 ng/mL (0-0.5)
[2024-04-25 19:30] LABS: Troponin 5 6HR 12.01 ng/L (0-10); Troponin 5 6HR Delta 3.01 ng/L (0-12)
--- NOTE | 2024-04-25 20:02 | ECG_ITS ---
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
[2024-04-25] MEDS: HYDROMORPHONE HCL 0.5 MG/0.5 ML INJ IVP (21:10)
--- NOTE | 2024-04-25 22:07 | USCV_ITS ---
Trish Rocha Age: 68 Gender: F : 1955 Exam Date: 04/25/2024 23:32 Ordering Phys: Shawn Campos MD Technologist: CADEN Exam Location: [facility] Indication: CVA, chronic dizziness episodes, anemia, history of Atrial fibrillation, anemia HTN, HL BP: 142 / 65 HR: 67 Rhythm: Sinus Technical Quality: Adequate MEASUREMENTS (Male / Female) Normal Values 2D ECHO LV Diastolic Diameter PLAX 3.5 cm 4.2 - 5.9 / 3.9 - 5.3 cm IVS Diastolic Thickness 0.9 cm 0.6 - 1.0 / 0.6 - 0.9 cm IVS Systolic Thickness 0.8 cm LVPW Diastolic Thickness 0.9 cm 0.6 - 1.0 / 0.6 - 0.9 cm LVPW Systolic Thickness 0.9 cm LVOT Diameter 1.6 cm LV Ejection Fraction 2D Teich 61.0 % LV Ejection Fraction MOD 4C 50.0 % LV Ejection Fraction MOD 2C 76.3 % LV Ejection Fraction 2C AL 75.8 % LA Diameter 3.7 cm LA Sys Volume AL 145.7 cm cubed LA Sys Volume Index AL 87.9 cm cubed/m squared Aorta at Sinotubular Diameter 2.6 cm IVC Diameter 1.6 cm M-MODE LA Ao Ratio MM 1.7 AV Cusp Separation MM 1.3 cm DOPPLER AV Peak Velocity 262.0 cm/s LVOT Peak Velocity 189.0 cm/s AV Area Cont Eq vti 1.7 cm squared AV Area Cont Eq pk 1.5 cm squared MV Peak Velocity 145.0 cm/s MV Area PHT 3.1 cm squared Mitral E to A Ratio 0.9 TV Peak Velocity 281.3 cm/s TR Peak Velocity 290.0 cm/s TR Peak Gradient 33.6 mmHg TV Peak E Velocity 69.0 cm/s PV Peak Velocity 161.0 cm/s FINDINGS Left Ventricle Normal left ventricular size, systolic function and wall thickness, with no regional wall motion abnormalities. Left ventricular ejection fraction is estimated at 60 %. Grade I/IV diastolic dysfunction (abnormal relaxation filling pattern), normal to mildly elevated filling pressures. Right Ventricle The right ventricle is normal in size and function. Right Atrium The right atrium is normal in size. Left Atrium Moderately increased left atrial size. Mitral Valve Mildly thickened mitral valve. No mitral valve stenosis. Moderate mitral valve regurgitation. Aortic Valve Moderate aortic valve calcification. Mild aortic valve stenosis, mean gradient 16.3 mmHg, CELESTE 1.7 cm squared. Trace aortic valve regurgitation. Tricuspid Valve [id number] tricuspid valve regurgitation. Pulmonic Valve Structurally normal pulmonic valve without significant stenosis. There is no pulmonic regurgitation. Pericardium Normal pericardium without effusion. Aorta Normal ascending aorta dimension. IVC The inferior vena cava appears normal. CONCLUSIONS Normal left ventricular size, systolic function and wall thickness, with no regional wall motion abnormalities. Left ventricular ejection fraction is estimated at 60 %. Grade I/IV diastolic dysfunction (abnormal relaxation filling pattern), normal to mildly elevated filling pressures. Moderately increased left atrial size. Moderate aortic valve calcification. Mild aortic valve stenosis, mean gradient 16.3 mmHg, CELESTE 1.7 cm squared. Trace aortic valve regurgitation. [id number] tricuspid valve regurgitation. There is no pericardial effusion. Right atrial pressure is around 5 mm of mercury. Sulaiman Hdez MD (Electronically Signed) Final Date: 26 April 2024 11:09 S
--- OUTSIDE RECORDS SUMMARY | 2024-04-25 22:16 | XMS_ITS | Patient Health Record ---
Author Organization [email or web address] Address [address] [place] [address] Care Team Providers Care Insulation Helper Name Role Phone Obey Rose Primary Care Provider UnavailSTEPHEN Leahy Unavailable [phone] WHITNEY DIOP Unavailable [phone] ABILIO MENESES Unavailable [phone] Allergies No Known Allergies Results Component Value Reference Range Notes Urinalysis, Routine Reviewed date:09/24/2023 02:42:22 PM Interpretation: Performing Lab: Notes/Report: Urine-Color yellow Appearance clear Glucose - Bilirubin - Ketones - Specific [place] 1.010 Occult Blood - pH 6.5 Urine Protein - Urobilinogen,Semi-Qn - Nitrite, Urine - WBC Esterase - Urinalysis, Routine Reviewed date:07/02/2023 03:26:18 PM Interpretation: Performing Lab: Notes/Report: Urine-Color yellow Appearance clear Glucose - Bilirubin - Ketones - Specific [place] 1.005 Occult Blood - pH 7.0 Urine Protein - Urobilinogen,Semi-Qn - Nitrite, Urine - WBC Esterase - Urinalysis Gross Exam - Urinalysis, Routine Reviewed date:07/28/2023 01:38:19 PM Interpretation: Performing Lab: Notes/Report: Urine-Color yellow Appearance clear Glucose - Bilirubin - Ketones - Specific [place] 1.010 Occult Blood - pH 6.5 Urine Protein - Urobilinogen,Semi-Qn - Nitrite, Urine POS WBC Esterase trace CBC w/ Auto Diff Reviewed date:08/09/2023 06:30:19 PM Interpretation: Performing Lab: Notes/Report: Testing performed at: [address] [place] [address] CLIA ID [id number] WBC 6.3 4.5-11.0 X10'3 RBC 3.51 4.00-5.20 X10'6 Hgb 10.4 12.0-16.0 G/DL Hct 32.7 36.0-46.0 % MCV 93.2 80.0-100.0 FL MCH 29.6 27.0-31.0 PG MCHC 31.8 31.0-37.0 G/DL Platelet 354 150-400 X10'3 RDW-SD 44.8 35.0-49.0 FL RDW-CV 13.1 12.2-15.6 % MPV 8.8 9.2-12.0 FL Neutro Auto% 65.5 42.0-75.0 % Lymph Auto% 24.4 20.0-51.0 % Archer Auto% 9.0 1.7-9.3 % Eos Auto% .6 .0-6.0 % Baso Auto% 0.3 0.0-1.0 % Imm Gran% .2 .0-.4 % Neutro Abs 4.13 .80-7.70 Absolute Neutrophil Count 4130 Lymph Abs 1.54 .10-4.10 Archer Abs .57 .20-1.00 Eos Abs .04 .00-.40 Baso Abs .02 .00-.10 Imm Gran Abs .01 .00-.10 NRBC# .00 .00-.20 X10'3 NRBC% .00 .00-.20 /100 intact WBC's Basic Metabolic Panel Reviewed date:08/09/2023 06:30:19 PM Interpretation: Performing Lab: Notes/Report: Testing performed at [facility], [address] [place] [address] [place] [address]. CLIA ID#: [id number] O-grswcm-u-benzoquinone imine (NAPQI) is a metabolite of acetaminophen, [...] Equation(2020) to estimate GFR. Testing performed at: [address] [place] [address] CLIA ID [id number] Use of this assay is not recommended [...] 8.7-10.4 MG/DL Osmo Serum,Calculated 275 280-300 MOSM/KG Urinalysis, Routine Reviewed date:08/20/2023 02:08:10 PM Interpretation: Performing Lab: Notes/Report: Urine-Color yellow Appearance clear Glucose - Bilirubin - Ketones - Specific [place] 1.015 Occult Blood - pH 5.5 Urine [...] Problem Status W/U Status Risk Notes Problem 27158327 Essential (primary) hypertension (I10) Active confirmed Problem Use of anticoagulation (805715806) Chronic anticoagulation (Z79.01) Active confirmed Problem Anxiety about health (491209334) Anxiety about health (F41.8) Active confirmed Problem Urinary frequency (973077156) Urinary frequency (R35.0) Active confirmed Problem Recurrent urinary tract infection (833154705) Recurrent UTI (N39.0) Active confirmed Problem Lesion of bladder (001564243) Lesion of bladder (N32.9) Active confirmed Problem History of urinary tract infection (7920618103742) History of UTI (Z87.440) Active confirmed Problem [...] mL Encounters Encounter Location Date Provider Diagnosis [facility], [facility] [address] [place] [address] 05/11/2023 ABILIO MENESES [facility], [facility] [address] [facility] [place] [address] 07/15/2023 STEPHEN LAMBER [facility] [address] [facility] [address] 07/16/2023 [facility], [facility] [address] [facility] [address] [facility] [address] 07/20/2023 [facility], [facility] [address] [facility] [address] [facility] [address] 07/28/2023 STEPHEN WATSON Preop testing Z01.81 8 and Essential (primary) hypertension I10 [facility] [address] [place] [address] 07/30/2023 [facility], [facility] [address] [place] [address], [place] [address] 08/31/2023 STEPHEN WATSON Preop testing Z01.81 8 ; Essential (primary) hypertension I10 and Lesion of bladder N32.9 [facility], [facility] [address] [facility] [address] 07/02/2023 [facility] Recurrent UTI N39.0 ; Lesion of bladder N32.9 ; Urinary frequency R35.0 ; Urinary urgency R39.15 ; Anxiety about health F41.8 ; History of UTI Z87.440 ; History of smoking Z87.891 and OAB (overactive bladder) N32.81 [facility], [facility] [address] [place] [address], [place] [address] 09/24/2023 WHITNEY DIOP Urgency of urination R39.15 ; OAB (overactive bladder) N32.81 and Frequency of urination R35.0 [facility] [address] [place] [address], [place] [address] 08/20/2023 [facility] Lesion of bladder N3 2.9 ; OAB (overactive bladder) N32.81 ; Urinary frequency R35.0 ; Urinary urgency R39.15 ; History of UTI Z87.440 ; History of smoking Z87.891 ; Chronic anticoagulation Z79.01 and Abnormal urinalysis R82.90 [facility] [address] [facility] [address] 07/28/2023 ABILIO MENESES Preoperative examina tion Z01.818 ; Lesion of bladder N32.9 ; Urinary frequency R35.0 ; Urinary urgency R39.15 ; History of UTI Z87.440 ; History of smoking Z87.891 ; Chronic anticoagulation Z79.01 and Abnormal urinalysis R82.90 [facility], [facility] [address] [place] [address] 08/04/2023 STEPHEN WATSON Bladder tumor D49.4 [facility], [facility] [address] [place] [address] 09/08/2023 STEPHEN WATSON OAB (overactive blad keren) N32.81 ; Urgency of urination R39.15 and Frequency of urination R35.0 Assessments Encounter Date Diagnosis (ICD Code) Assessment Notes Treatment Notes Treatment Clinical Notes Section Notes 07/02/2023 Recurrent UTI (ICD-10 - N39.0) 67 yo female with rOAB who has failed multiple medications. Cysto today revealed multiple erythematous areas across the bladder concerning for malignancy. The cysto findings were discussed with patient. I recommend bladder biopsy in the OR. The R/B/A of surgery was discussed. Pt agreeable to surgery. Plan: obtain CC from Dr. Crow to hold [employer] schedule cysto with bladder biopsy and fulguration at [facility] all questions answered 07/02/2023 Lesion of bladder (ICD-10 - N32.9) 67 yo female with rOAB who has failed multiple medications. Cysto today revealed multiple erythematous areas across the bladder concerning for malignancy. The cysto findings were discussed with patient. I recommend bladder biopsy in the OR. The R/B/A of surgery was discussed. Pt agreeable to surgery. Plan: obtain CC from Dr. Crow to hold [employer] schedule cysto with bladder biopsy and fulguration at [facility] all questions answered 08/20/2023 Lesion of bladder (ICD-10 - N32.9) 67 yo female with rOAB, nocturia, frequency, rUTIs. She is s/p bladder biopsy on 08/03. Path benign with chronic inflammation. She has failed OAB meds. Discussed options for rOAB. Treatment options include PTNS, Botox, SNM. The risks, benefits and alternatives to each option was discussed. She elects for botox. Plan: schedule cysto with bladder botox at [facility] all questions answered 08/20/2023 OAB (overactive bladder) (ICD-10 - N32.81) 67 yo female with rOAB, nocturia, frequency, rUTIs. She is s/p bladder biopsy on 08/03. Path benign with chronic inflammation. She has failed OAB meds. Discussed options for rOAB. Treatment options include PTNS, Botox, SNM. The risks, benefits and alternatives to each option was discussed. She elects for botox. Plan: schedule cysto with bladder botox at [facility] all questions answered 09/24/2023 Urgency of urination (ICD-10 - R39.15) 09/24/2023 OAB (overactive bladder) (ICD-10 - N32.81) Pt doing well postoperatively without complication. She was hoping for more improvement than she received, but she has had well over a 50% improvement in symptoms. UA is clear. Emtpying well. Will have her RTC in with UA/PVR for reassessment. 09/08/2023 Urgency of urination (ICD-10 - R39.15) 09/08/2023 OAB (overactive bladder) (ICD-10 - N32.81) 08/04/2023 Bladder tumor (ICD-10 - D49.4) 07/28/2023 Lesion of bladder (ICD-10 - N32.9) 07/28/2023 Preoperative examination (ICD-10 - Z01.818) 08/31/2023 Preop testing (ICD-10 - Z01.818) 07/28/2023 Preop testing (ICD-10 - Z01.818) 07/28/2023 Essential (primary) hypertension (ICD-10 - I10) 08/31/2023 Essential (primary) hypertension (ICD-10 - I10) 07/28/2023 Urinary frequency (ICD-10 - R35.0) 09/08/2023 Frequency of urination (ICD-10 - R35.0) 09/24/2023 Frequency of urination (ICD-10 - R35.0) 08/20/2023 Urinary frequency (ICD-10 - R35.0) 67 yo female with rOAB, nocturia, frequency, rUTIs. She is s/p bladder biopsy on 08/03. Path benign with chronic inflammation. She has failed OAB meds. Discussed options for rOAB. Treatment options include PTNS, Botox, SNM. The risks, benefits and alternatives to each option was discussed. She elects for botox. Plan: schedule cysto with bladder botox at [facility] all questions answered 07/02/2023 Urinary frequency (ICD-10 - R35.0) 67 yo female with rOAB who has failed multiple medications. Cysto today revealed multiple erythematous areas across the bladder concerning for malignancy. The cysto findings were discussed with patient. I recommend bladder biopsy in the OR. The R/B/A of surgery was discussed. Pt agreeable to surgery. Plan: obtain CC from Dr. Crow to hold [employer] schedule cysto with bladder biopsy and fulguration at [facility] all questions answered 07/02/2023 Urinary urgency (ICD-10 - R39.15) 67 yo female with rOAB who has failed multiple medications. Cysto today revealed multiple erythematous areas across the bladder concerning for malignancy. The cysto findings were discussed with patient. I recommend bladder biopsy in the OR. The R/B/A of surgery was discussed. Pt agreeable to surgery. Plan: obtain CC from Dr. Crow to hold [employer] schedule cysto with bladder biopsy and fulguration at [facility] all questions answered 08/20/2023 Urinary urgency (ICD-10 - R39.15) 67 yo female with rOAB, nocturia, frequency, rUTIs. She is s/p bladder biopsy on 08/03. Path benign with chronic inflammation. She has failed OAB meds. Discussed options for rOAB. Treatment options include PTNS, Botox, SNM. The risks, benefits and alternatives to each option was discussed. She elects for botox. Plan: schedule cysto with bladder botox at [facility] all questions answered 07/28/2023 Urinary urgency (ICD-10 - R39.15) 08/31/2023 Lesion of bladder (ICD-10 - N32.9) 07/28/2023 History of UTI (ICD-10 - Z87.440) 08/20/2023 History of UTI (ICD-10 - Z87.440) 67 yo female with rOAB, nocturia, frequency, rUTIs. She is s/p bladder biopsy on 08/03. Path benign with chronic inflammation. She has failed OAB meds. Discussed options for rOAB. Treatment options include PTNS, Botox, SNM. The risks, benefits and alternatives to each option was discussed. She elects for botox. Plan: schedule cysto with bladder botox at [facility] all questions answered 07/02/2023 Anxiety about health (ICD-10 - F41.8) 67 yo female with rOAB who has failed multiple medications. Cysto today revealed multiple erythematous areas across the bladder concerning for malignancy. The cysto findings were discussed with patient. I recommend bladder biopsy in the OR. The R/B/A of surgery was discussed. Pt agreeable to surgery. Plan: obtain CC from Dr. Crow to hold [employer] schedule cysto with bladder biopsy and fulguration at [facility] all questions answered 07/02/2023 History of UTI (ICD-10 - Z87.440) 67 yo female with rOAB who has failed multiple medications. Cysto today revealed multiple erythematous areas across the bladder concerning for malignancy. The cysto findings were discussed with patient. I recommend bladder biopsy in the OR. The R/B/A of surgery was discussed. Pt agreeable to surgery. Plan: obtain CC from Dr. Crow to hold [employer] schedule cysto with bladder biopsy and fulguration at [facility] all questions answered 08/20/2023 History of smoking (ICD-10 - Z87.891) 67 yo female with rOAB, nocturia, frequency, rUTIs. She is s/p bladder biopsy on 08/03. Path benign with chronic inflammation. She has failed OAB meds. Discussed options for rOAB. Treatment options include PTNS, Botox, SNM. The risks, benefits and alternatives to each option was discussed. She elects for botox. Plan: schedule cysto with bladder botox at [facility] all questions answered 07/28/2023 History of smoking (ICD-10 - Z87.891) 07/28/2023 Chronic anticoagulation (ICD-10 - Z79.01) 08/20/2023 Chronic anticoagulation (ICD-10 - Z79.01) 67 yo female with rOAB, nocturia, frequency, rUTIs. She is s/p bladder biopsy on 08/03. Path benign with chronic inflammation. She has failed OAB meds. Discussed options for rOAB. Treatment options include PTNS, Botox, SNM. The risks, benefits and alternatives to each option was discussed. She elects for botox. Plan: schedule cysto with bladder botox at [facility] all questions answered 07/02/2023 History of smoking (ICD-10 - Z87.891) 67 yo female with rOAB who has failed multiple medications. Cysto today revealed multiple erythematous areas across the bladder concerning for malignancy. The cysto findings were discussed with patient. I recommend bladder biopsy in the OR. The R/B/A of surgery was discussed. Pt agreeable to surgery. Plan: obtain CC from Dr. Crow to hold Eliquis schedule cysto with bladder biopsy and fulguration at [facility] all questions answered 07/02/2023 OAB (overactive bladder) (ICD-10 - N32.81) 67 yo female with rOAB who has failed multiple medications. Cysto today revealed multiple erythematous areas across the bladder concerning for malignancy. The cysto findings were discussed with patient. I recommend bladder biopsy in the OR. The R/B/A of surgery was discussed. Pt agreeable to surgery. Plan: obtain CC from Dr. Crow to hold Eliquis schedule cysto with bladder biopsy and fulguration at [facility] all questions answered 08/20/2023 Abnormal urinalysis (ICD-10 - R82.90) 67 yo female with rOAB, nocturia, frequency, rUTIs. She is s/p bladder biopsy on 08/03. Path benign with chronic inflammation. She has failed OAB meds. Discussed options for rOAB. Treatment options include PTNS, Botox, SNM. The risks, benefits and alternatives to each option was discussed. She elects for botox. Plan: schedule cysto with bladder botox at [facility] all questions answered 07/28/2023 Abnormal urinalysis (ICD-10 - R82.90) 07/28/2023 Other Patient schedul ed for cystoscopy, bladder biopsy and fulguration on 08/04/[address] Watson. How the procedure was performed was discussed along with risks/benefits/alt ernatives and postprocedural expectations. Patient is on Eliquis, and understands to hold x 3 days prior to procedure. Denies problems with anesthesia in the past, no new medications or diagnoses since last visit. Patient has presurgical testing at [facility] today. Urine sent for PCR/culture and [...] necessary to avoid raising her blood pressure. 67 yo female with rOAB, nocturia, frequency, rUTIs. She is s/p bladder biopsy on 08/03. Path benign with chronic inflammation. She has failed OAB meds. Discussed options for rOAB. Treatment options include PTNS, Botox, SNM. The risks, benefits and alternatives to each option was discussed. She elects for botox. Plan: schedule cysto with bladder botox at [facility] all questions answered 08/17/2023 Pt is a 67 y/o F. Smoking hx. H/o of UTI. Urgancy/freque ncy. Pathology was reviewed during consult resulting in negative for malignancy w/ chronic inflammation Plan Of Treatment Pending Test Test Name Order Date CULTURE, URINE, ROUTINE (395) 07/28/2023 Basic Metabolic Panel 08/31/2023 CBC w/ Auto Diff 08/31/2023 UA Reflex -- [id number] 08/31/2023 Electrocardiogram, 12 Lead Tracing-[id number] 07/28/2023 Insurance Providers Payer Name Payer Address Payer Phone Subscriber Number Group Number Insured Name Patient Relationship to Insured Coverage Start Date [place]age End Date [place] [address] [address] [place], [place] [id number] Trish Rocha Self - patient is the insured [facility] Medicare Supplement [address] [place], [place] [id number] Aj Trish Self - patient is the insured Medical (General) History Medical History History ICD Code hemorrhoids hypertension back trouble recurrent bladder infections arthritis Surgical History Surgery Date(Month/Year) X 3 tonsillectomy Hospitalization History Reason Date(Month/Year) rapid heart beat/afib 06/2023 High BP 09/2022 hospitalized for High bp 04/2022
--- OUTSIDE RECORDS SUMMARY | 2024-04-25 22:16 | XMS_ITS ---
Author Organization [facility], [facility] Address [address] [place] [address] Care Team Providers Care Sexual Assault Nurse Name Role Phone Obey Rose Primary Care Provider STEPHEN Pina Unavailable [phone] BLAKE DIOPIE Unavailable [phone] Allergies No Known Allergies Results Component Value Reference Range Notes Urinalysis, Routine Reviewed date:09/24/2023 02:42:22 PM Interpretation: Performing Lab: Notes/Report: Urine-Color yellow Appearance clear Glucose - Bilirubin - Ketones - Specific Mark[place] 1.010 Occult Blood - pH 6.5 Urine [...] Encounter Location Date Provider Diagnosis [facility], [facility] [address] [place] [address] 09/24/2023 WHITNEY DIOP Urgency of urination R39.15 ; OAB (overactive bladder) N32.81 and Frequency of urination R35.0 Assessments Encounter Date Diagnosis (ICD Code) Assessment Notes Treatment Notes Treatment Clinical Notes Section Notes 09/24/2023 Urgency of urination (ICD-10 - [...] Appt Details Follow Up: 3m with UA/PVR, R tova: Progress Notes * Trish SWAN DDOB: [birth year] (67 yo F)Acc No.[id number]:09/24/2023 Patient:?Trish SWAN D Provider:?Whitney Diop APRN :[id number]???Age:67 Y???Sex:Female D ate:09/24/2023 Address:[address] [place], [place] [address] Pcp:Obey Rose Subjective: * Chief Complaints: * ???2-4 wk postop w/ua/pvr * HPI: ???:?Ms. Rivera is a 67-year-old female patient of Dr. Watson who established in 04/2023 with complaint of urinary frequency. She had been seen by Dr. Amin and [facility] in [place] in the past few years for same [...] ?Bilirubin - * ?Ketones - * ?Specific Markle 1.010 * ?Occult Blood - * ?pH [...] with UA/PVR for reassessment. ?? * Procedure Codes:?20714 URINA LYSIS, AUTO, W/O [id number] US URINE CAPACITY MEASURE * Follow Up:?3m with UA/PVR * Billing Information: * Visit Code:? 28091 Office Visit, Est Pt., Level 3. * Procedure Codes:? 38213 URINALYSIS, AUTO, W/O SCOPE. 98219 US URINE CAPACITY MEASURE. * Sign off status: Completed true * Provider:?Whitney Diop APRN Date:? 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 Rivera is a 67-year-old female patient of Dr. Watson who established in 04/2023 with complaint of urinary frequency. She had been seen by Dr. Amin and [facility] in [place] in the past few years for same [...] sips of soda daily, with good water intake. Cysto on 07/02/23 revealed multiple erythematous areas across the bladder concerning for malignancy especially with her h/o smoking. Pt underwent operative cystoscopy, bladder biopsy and fulguration on 08/04/23. Pathology returned benign reporting partially denuded urothelial mucosa, and some mild chronic inflammation reactive changes. With ongoing bother from frequency and urgency, Dr. Watson recommended intravesical Botox and she underwent procedure on 09/08/23. She is here today for 2-4w postop. She states she has had some improvement. Her daytime frequency went from q15min to q1h and nocturia has improved from every 15-30 min to 3x per night. She denies any bladder pain, dysuria, hematuria. Examination Category Sub-Category Detail Notes Category Not es General Examination General appearance: alert, w ell-nourished and in no acute distress Chest: resp even and nonlab ored Abdomen: soft, NT, ND Female genitourinary: No CVAT, No SPT, n o bladder distention
--- OUTSIDE RECORDS SUMMARY | 2024-04-25 22:16 | XMS_ITS ---
Author Organization [employer] Address [address] [facility] [place] [address] Care Team Providers Care Black Topper Name Role Phone Obey Rose Primary Care Provider STEPHEN Pina Unavailable [phone] WHITNEY DIOP Unavailable [phone] REASON FOR VISIT Pt cx/ will call back to rs--- 3 mo w/ ua/pvr Encounters Encounter Location Date Provider Diagnosis [facility] [address] [place] [address] 12/24/2023 WHITNEY DIOP Plan Of Treatment No Information Progress Notes * Trish SWAN DDOB: [birth year] (68 yo F)Acc No.[id number]:12/24/2023 Progress Notes Patient:?Trish WSAN Provider:?Whitney Diop APRN :1955???Age:68 Y???Sex:Female D ate:12/24/2023 [place] Pcp:Obey Rose Subjective: * Chief Complaints: * ???1. Pt cx/ will call back to rs--- 3 mo w/ ua/pvr. * Medical History:? Objective: * Vitals:? Assessment: Plan: * Treatment: * Billing Information: * Visit Code:? * Procedure Codes:? * Electronic signature of ANNELIESE DIOP APRN on 04/25/2024 at 10:16 PM LEHR ATTENDANT Sign off status: Pending * Provider:Imer Diop APRN Date:? Generated for Breezy lopez/Darling/Madhuri on:?04/25/2024 10:16 PM LEHR ATTENDANT
--- OUTSIDE RECORDS SUMMARY | 2024-04-25 22:16 | XMS_ITS ---
Author Organization [employer], [employer] Address [address] [place] [address] Care Team Providers Care Math Teacher Name Role Phone Obey Rose Primary Care Provider STEPHEN Pina [phone] REASON FOR VISIT Cysto Botox @ [facility] Encounters Encounter Location Date Provider Diagnosis [facility] [address] [place] [address] 09/08/2023 STEPHEN SARMIENTO OAB (overactive bladder) N32.81 ; Urgency of urination R39.15 and Frequency of urination R35.0 Assessments Encounter Date Diagnosis (ICD Code) Assessment Notes Treatment Notes Treatment Clinical Notes Section Notes 09/08/2023 OAB (overactive bladder) (ICD-10 - N32.81) 09/08/2023 Urgency of urination (ICD-10 - R39.15) 09/08/2023 Frequency of urination (ICD-10 - R35.0) Plan Of Treatment No Information Progress Notes * Trish SWAN DDOB: [birth year] (67 yo F)Acc No.[id number]:09/08/2023 Patient:?Trish SWAN Provider:?STEPHEN SARMIENTO MD :1955???Age:67 Y???Sex:Female D ate:09/08/2023 Address:[address], [id number] Pcp:Obey Rose * Billing Information: * Visit Code:? * Procedure Codes:? 81494 CYSTOSCOPY CHEMODENERVATION. * Sign off status: Completed true * Provider:?STEPHEN SARMIENTO MD Date:?11/2023 Generated for Breezy lopez/Darling/Marcyitting on:?04/25/2024 10:16 PM CATALYST IMPREGNATOR
--- OUTSIDE RECORDS SUMMARY | 2024-04-25 22:16 | XMS_ITS | Clinical Summary ---
Author Organization [facility] Address [address] [place] [address] Care Team Providers Care Public Relations Representative Name Role Phone Johnie Tijerina DO Primary Care Provider [phone] Allergies No known active allergies Medications ALPRAZolam (XANAX) 1 mg tablet 1 mg 1 time daily as needed. 05/24/2015 Active levothyroxine 50 mcg tablet 50 mcg daily. 05/07/2015 A ctive simvastatin (ZOCOR) 20 mg tablet 20 mg daily. 05/21/2015 Active traMADol (ULTRAM) 50 mg tablet 50 mg 1 time daily as needed. 05/21/2015 Active valsartan-[place] chlorothiazide (DIOVAN HCT) 320-25 mg tablet 0.5 Tablets late in the day Takes half tab BID. 05/14/2015 Active nebivolol (BYSTOLIC) 5 mg Tablet Take 5 mg by mouth daily. Active spironolactone (ALDACTONE) 25 mg tablet daily. 06/26/2015 Active APRISO 0.375 gram Extended Release 24 hour capsule TAKE 4 CAPSULES BY MOUTH DAILY. 360 Capsule 11 02/07/2019 Active cloNIDine HCL (CATAPRES) 0.1 mg tablet daily. 12/16/2019 Active QUEtiapine (SEROquel) 200 mg tablet TK 1 T PO EACH EVENING 01/02/2020 Active calcium carbonate/vitam in D3 (CALCIUM + D ORAL) Take by mouth 2 times daily. Active docosahexaenoic acid/epa (FISH OIL ORAL) Take by mouth 2 times daily. Active sodium, potassium and magnesium sulfates (Suprep Bowel Prep Kit) 17.5-3.13-1.6 gram Recon Soln See instructions. 354 mL 02/13/2020 Active mesalamine (APRISO) 0.375 gram Extended Release 24 hour capsule TAKE 4 CAPSULES BY MOUTH DAILY 360 Capsule 6 08/27/2020 Active Active Problems Problem Noted Date Diagnosed Date HTN (hypertension), benign 12/31/2015 History of back injury 12/31/2015 Pure hypercholesterolemia 12/31/2015 Ulcerative colitis 12/31/2015 S/P laparoscopic sleeve gastrectomy - 10/31/2015 11/13/2015 [place] ulcerative colitis 10/02/2015 Colitis 08/20/2015 Morbid obesity with BMI of 45.0-49.9, adult 05/01 Immunizations Immunization Administration Dates Next Due (HAVRIX/VAQTA)(19 YRS UP) HE PATITIS A VACCINE ADULT DOSAGE 1 ML IMM 06/23/2016,12/31/2015 06/27/2016 INFLUENZA VACCINE QUADRIVALENT 3 YR UP PF IM Family History Medical History Relation Name Comments Colon Cancer Maternal Grandmother Relation Name Status Comments Maternal Grandmother Social History Tobacco Use Types Packs/Day Years Used Date Smoking Tobacco: Never Smokeless Tobacco: Never Alcohol Use Standard Drinks/Week Comments No 0 (1 standard drink = 0.6 oz pur e alcohol) Comments No Sex and Gender Information Value Date Recorded Sex Assigned at Not on file Legal Sex Female 5:02 AM VALUE ANALYSIS COORDINATOR Gender Identity Not on file Sexual Orientation Not on file Last Filed Vital Signs Vital Sign Reading Time Taken Comments Blood Pressure 137/48 02/21/2020 11:02 AM VALUE ANALYSIS COORDINATOR Pulse 50 02/21/2020 11:02 AM VALUE ANALYSIS COORDINATOR Temperature 37.1 ??C (98.8 ??F) 02/21/2020 9:14 AM CS T Respiratory Rate 20 02/21/2020 11:02 AM VALUE ANALYSIS COORDINATOR Oxygen Saturation 100% 02/21/2020 11:02 AM VALUE ANALYSIS COORDINATOR Inhaled Oxygen Concentration - - Weight 80.7 kg (178 lb) 02/13/2020 12:15 PM VALUE ANALYSIS COORDINATOR Height 154.9 cm (5' 1 ) 02/13/2020 12:15 PM VALUE ANALYSIS COORDINATOR Body Mass Index 33.63 02/13/2020 12:15 PM VALUE ANALYSIS COORDINATOR Plan of Treatment Health Maintenance Due Date Last Done Comments DTAP/TDAP/TD VACCINES (1 - Tdap) 11/18/1975 BREAST CANCER SCREENING 1996 FIT-DNA Q 3 years 2001 FIT/FOBT Q 1 year 2001 Flex Sig/CT Colonography Q 5 years 2001 PNEUMOCOCCAL VACCINE 65+ YEA RS (1 of 1 - PCV) 2006 ZOSTER VACCINE (1 of 2) 2006 RSV VACCINE (60+ or ) (1 - Risk 60-74 years 1-dose series) 2016 Pre-Diabetes and Diabetes Screening 10/31/2018 11/01/2015 OSTEOPOROSIS SCREENING 2021 COLORECTAL SCREENING 02/20/2022 02/21/2020, 02/21/2020, 08/13/2017, Additional history exists Colorectal Cancer Screening 02/20/2022 INFLUENZA VACCINE (#1) 2023 12/31/2015 Procedures Procedure Name Priority Date/Time Associated Diagnosis Comments COLONOSCOPY REPORT 02/21/2020 10 :32 AM VALUE ANALYSIS COORDINATOR HEMOGLOBIN A1C Routine 11/01/2015 5:40 AM CDT from Last 3 Months or Most Recently Relevant to Health Maintenance Results * COLONOSCOPY REPORT (02/21/2020 10:32 AM VALUE ANALYSIS COORDINATOR) Narrative Procedure Note Marcell Small MD - 02/21/2020 10:31 AM CST [facility] GI Patient Name: Trish Rocha Procedure Date: 02/21/2020 Date of : 1955 Admit Type: Outpatient Age: 64 Attending MD: Marcell Small , Procedure: Colonoscopy Indications: Follow-up of chronic ulcerative pancolitis, Disease activity assessment of chronic ulcerative pancolitis Providers: Marcell Small Referring MD: Johnie Tijerina DO Medicines: Monitored Anesthesia Care Complications: No immediate complications. Estimated blood loss: Minimal. Procedure: Pre-Anesthesia Assessment: - Prior to the procedure, a History and Physical was performed, and patient medications and allergies were reviewed. The patient's tolerance of previous anesthesia was also reviewed. The risks and benefits of the procedure and the sedation options and risks were discussed with the patient. All questions were answered, and informed consent was obtained. Prior Anticoagulants: The patient has taken no previous anticoagulant or antiplatelet agents. ASA Grade Assessment: II - A patient with mild systemic disease. After reviewing the risks and benefits, the patient was deemed in satisfactory condition to undergo the procedure. - [place] Protocol: - Pre-procedure Verification: Prior to the procedure, the patient's identity was verified by full name and date of . The patient's identity was verified on all pertinent medical records, including History and Physical. Also prior to the procedure, a History and Physical was performed, and patient medications, allergies and sensitivities were reviewed. The patient's tolerance of previous anesthesia was reviewed. The risks and benefits of the procedure and the sedation options and risks were discussed with the patient. All questions were answered and informed consent was obtained. - Time-Out: Prior to the start of the procedure, the patient's identification, proposed procedure, accurate signed consent, correctly labeled images and records, and need for prophylactic antibiotics were verified by the physician and the nurse in the endoscopy suite. After I obtained informed consent, the scope was passed under direct vision. Throughout the procedure, the patient's blood pressure, pulse, and oxygen saturations were monitored continuously. The Colonoscope was introduced through the anus and advanced to the terminal ileum. The colonoscopy was performed without difficulty. The patient tolerated the procedure well. The terminal ileum, ileocecal valve, appendiceal orifice, and rectum were photographed. The entire colon was examined. Estimated Blood Loss: Estimated blood loss was minimal. Findings: The perianal and digital rectal examinations were normal. Pertinent negatives include normal sphincter tone, no palpable rectal lesions and no anal lesion or abnormality. Non-bleeding internal hemorrhoids were found during retroflexion. The hemorrhoids were small. The entire examined colon appeared normal. Biopsies for histology were taken with a cold forceps from the cecum, ascending colon, transverse colon, descending colon and rectosigmoid colon for evaluation of microscopic colitis. There was no endoscopic evidence of inflammation involving the entire colon. Random biopsies were taken to confirm mucosal healing. The terminal ileum appeared normal. Impression: - Non-bleeding internal hemorrhoids. - The entire examined colon is normal. Biopsied. - There was no endoscopic evidence of inflammation involving the entire colon. Random biopsies were taken to confirm mucosal healing. - The examined portion of the ileum was normal. Recommendation: - Resume previous diet. - Continue present medications. - Repeat colonoscopy in 2 years for surveillance. - Patient has a contact number available for emergencies. The signs and symptoms of potential delayed complications were discussed with the patient. Return to normal activities tomorrow. Written discharge instructions were provided to the patient. - Return to primary care physician as previously scheduled. - The findings and recommendations were discussed with the patient's family. Marcell Small, 02/21/2020 10:31:09 AM Number of Addenda: 0 Note Initiated On: 02/21/2020 10:04 AM Scope Withdrawal Time 0 hours 6 minutes 41 seconds Scope In: 10:16:57 AM Scope Out: 10:28:32 AM [address] [place], [place] Marcell Small MD GI PROCEDURE ORDERABL ES Final Result * (ABNORMAL) HEMOGLOBIN A1C (11/01/2015 5:40 AM CDT) HEMOGLOBIN A1C 6.2(H) 4.0 - 6.0 % 11/01/2015 11:37 AM CDT [facility] [employer] [facility] EST. AVG GLUCOSE, A1C 131 mg/dL 11/01/2015 11:37 AM CDT [facility] Blood Venipuncture - L ab Collect / Unknown 11/01/2015 5:40 AM CDT 11/01/2015 5:59 AM CDT Narrative [facility] [employer] [facility] - 11/01/2015 11:37 AM CDT Test performed on [email or web address] instrumentation using HPLC methodology us David Joyner MD CHEMISTRY ORDERABLES Fi nal Result [facility] CLIA# [id number] [address] [place] [address] from Last 3 Months or Most Recently Relevant to Health Maintenance Insurance MEDICARE PART A AND [place] MEDICARE [place] Advance Directives For more information, please contact: [phone] * Full Code (Latest Code Status on File) Date Activated Date Inactivated Comments 08/13/2017 9:16 AM 08/13/2017 12:38 PM * Full Code Date Activated Date Inactivated Comments 10/31/2015 10:52 AM 11/01/2015 7:35 PM * Full Code Date Activated Date Inactivated Comments 10/31/2015 5:22 AM 10/31/2015 10:52 AM * Full Code Date Activated Date Inactivated Comments 08/22/2015 10:46 AM 08/22/2015 2:11 PM Care Teams Public Relations Representative Relationship Specialty Start Date End Date Johnie Tijerina DO PCP - General Family Practice 05/24/15
--- OUTSIDE RECORDS SUMMARY | 2024-04-25 22:16 | XMS_ITS | Continuity of Care Document ---
Author Organization [facility]. If a dditional information is needed, contact Health Information Management at [phone] Address [address] [place] [address] Phone Care Team Providers Care Curve Saw Operator Name Role Phone Unavailable Unavailable Unavailable Unavailable Unavailable Unavailable Unavailable Unavailable Unavailable Problems Anemia Onset:06-Dec-2022 Brian Calvillo MD Fatigue Onset:06-Dec-2022 Brian Calvillo MD Allergies and Adverse Reactions IV CONTRAST(Allergy) Onset: 06-Dec-2022 Reaction:UNKNOWN Social History Smoking Status Tobacco smoking consumption unknown Recorded: Nov-2022
[2024-04-25] MEDS: quetiapine 100 mg Tablet PO (22:24)
[2024-04-25] MEDS: trazodone 100 mg Tablet PO (22:24)
[2024-04-25] MEDS: apixaban 5 mg Tablet PO (22:24)
[2024-04-25] MEDS: atorvastatin 40 mg Tablet 80 MG PO (22:24)
[2024-04-25] MEDS: cefTRIAXone 1,000 mg SDV 1000 MG IVP (22:28)
[2024-04-25] MEDS: pantoprazole 40 mg SDV IVP (22:28)
[2024-04-25] MEDS: sodium chloride 0.9% 1,000 ML 75 ML IV (22:28)
[2024-04-25 22:55] LABS: Chol HDL Ratio 2.59 mg/dL (0.0-4.40); Cholesterol 132 mg/dL (0-200); HDL Cholesterol 51 mg/dL (60-100); LDL Cholesterol Calculated 60 mg/dL (50-129); LDL HDL Ratio 1.18 RATIO (0.00-3.22); Triglycerides 103 mg/dL (0-150)
[2024-04-25 23:09] LABS: Estmated Average Glucose 100; Hemoglobin A1C 5.1 % (4.0-6.0)
[2024-04-26] VITALS (10 sets, daily range): BP systolic 101–182; BP diastolic 45–81; PULSE 60–84; RESP 16–19; TEMP 36.7–36.9; O2SAT 95–98; BMI 26.0
[2024-04-26] MEDS: acetaminophen 325 mg Tablet 650 MG PO ×2 (01:16→07:53)
[2024-04-26 03:09] LABS: Basophils % 0.2 %; Eosinophils # 0.2 10^3/uL (0.0-0.8); Eosinophils % 1.8 %; Hematocrit 29.8 % (36-47); Lymphocytes # 2.6 10^3/uL (0.8-4.8); Lymphocytes % 30.3 %; Mean Corpuscular HGB Conc 30.9 g/dL (30-55); Mean Corpuscular Hemoglobin 28.2 pg (27-33); Mean Corpuscular Volume 91.4 fl (85-98); Monocytes # 1.1 10^3/uL (0.2-0.9); Monocytes % 12.5 %; Neutrophils # 4.63 10^3/uL (1.8-7.7); Neutrophils % 55.1 %; Nucleated Red Blood Cells % 0 %; Platelet Count 304 10^3/cmm (157-399); Red Blood Count 3.26 10^6/uL (3.85-5.65); Red Cell Distribution Width 14.6 % (12.1-15.1); White Blood Count 8.41 10^3/uL (3.29-11.43)
[2024-04-26 03:29] LABS: Alanine Aminotransferase 6 U/L (0-33); Albumin Level 3.4 g/dL (3.5-5.2); Alkaline Phosphatase 49 U/L (35-105); Anion Gap 12.7 (5-19); Aspartate Amino Transferase 10 U/L (0-32); Blood Urea Nitrogen 18 mg/dL (8-23); Calcium 8.2 mg/dL (8.5-10.5); Carbon Dioxide 23 mmol/L (22-29); Chloride 105 mmol/L (98-107); Creatinine Clr Calc Pharmacy 57.8685; Globulin 2.2 g/dL (1.3-4.6); Glomerular Filtration Rate 99.7 mL/min (90-130); Glucose 99 mg/dL (65-115); Osmolality Calculated 286 mOsm/kg (285-295); Potassium 3.7 mmol/L (3.5-5.1); Sodium 137 mmol/L (136-145); Total Bilirubin 0.2 mg/dL (0.15-1.2); Total Protein 5.6 g/dL (6.6-8.7)
--- NOTE | 2024-04-26 04:07 | PC.NURSE ---
Pt arrived on med/surg unit at this time.
[2024-04-26] MEDS: aspirin 81 mg EC Tablet PO (05:09)
[2024-04-26] MEDS: levothyroxine 25 mcg Tablet 50 MCG PO (05:09)
[2024-04-26] MEDS: apixaban 5 mg Tablet PO ×2 (07:54→18:34)
[2024-04-26] MEDS: ferrous sulfate EC 325 mg Tablet PO (07:54)
[2024-04-26] MEDS: escitalopram 10 mg Tablet PO (07:54)
--- NOTE | 2024-04-26 08:39 | PC.NURSE ---
Patient stated head has hurt most of night and left side of face feel slightly numb since coming in early this am.
--- NOTE | 2024-04-26 09:00 | MR_ITS ---
WS: [id number] MRI BRAIN WITHOUT CONTRAST HISTORY: cva COMPARISON: 11/16/[address] head 04/25/2024 TECHNIQUE: Diffusion imaging, multiplanar T1, T2 and FLAIR imaging obtained. No evidence for acute infarct or hemorrhage. Bonilla-white matter differentiation is normal. Mild volume loss and mild small vessel ischemic disease. 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 No progression of small vessel ischemic changes or new infarct. Ventricles and extra-axial spaces are normal. No inferior displacement of cerebellar tonsils. The sella turcica and pituitary gland are unremarkable. Dural venous sinuses and andreafski of Torres demonstrate no abnormality on this unenhanced studies. Paranasal sinuses: Small mucous retention cyst in the LEFT maxillary sinus. No air-fluid levels. Mastoid air cells: Normal. Calvarium and scalp: Intact. MR/MR head wo con* [id number] IMPRESSION: 1. No acute infarct or hemorrhage. 2. Stable mild volume loss and small vessel disease and a remote small infarct in the RIGHT cerebellum.
--- NOTE | 2024-04-26 10:19 | PC.CHAP ---
Pastoral Care Encounter/Spiritual Assessment Type of Contact [] Declined legal intern visit [] Patient/Family/Request visit [] Outpatient visit [] Follow-up visit [] Physician referral [] Code/Alert [] Routine visit [] Staff referral [] Actively dying [] Patient sleeping [] Family support [] [] Out of room [] Palliative care [] [x] Receiving care in room [] Pre-surgical visit [] Trauma [] Long length of stay [] ICU visit [] Other: Relational/Emotional Strength [] Patient feels connected with others/family/visitors/staff [] Distress [] Loneliness/isolation [] Abandonment Spirituality of Patient [] Person of Brit [] Attends Restorationism of their Brit [] Believes in Prayer [] Reads Bible or Protestant materials [] There are Spiritual issues to be addressed Manager Transport Interventions [] Prayer [] Active listening [] Non-anxious presence [] Spiritual/emotional support [] Crisis/trauma care [] Spiritual counseling [] Bereavement support [] Provided bereavement packet [] Provided Bible/devotional materials [] Provided toy/stuffed animal, coloring book to patient or family member [] Provided Communion [] Anointing/[place] [] Salvation [] Completed spiritual assessment [] Other: Impact on Illness or Injury [] Angry [] Fearful [] Anxious [] Often cries [] Exhaustion [] Unable to work [] Unable to attend cheondoism [] Unable to walk/stand [] Unable to read [] Unable to drive [] Unable to eat/drink [] Unable to sleep [] Unable to be with family [] Patient intubated [] Other: Summary Time spent with patient
--- NOTE | 2024-04-26 12:55 | PC.NURSE ---
Notified Dr. Campos patient still has a headache. Gave tylenol PO at 0753 this am. New orders to give Tramadol PO 50 mg One Time.
[2024-04-26] MEDS: TRAMadol 50 mg Tablet PO (13:33)
--- NOTE | 2024-04-26 15:58 | CTR_ITS ---
PROCEDURE INFORMATION: Exam: CT Lumbar Spine Without Contrast Exam date and time: 04/26/2024 4:51 PM Age: 68 years old Clinical indication: Numbness; Additional info: Left foot numbness TECHNIQUE: Imaging protocol: Computed tomography of the lumbar spine without contrast. Radiation optimization: All CT scans at this facility use at least one of these dose optimization techniques: automated exposure control; mA and/or kV adjustment per patient size (includes targeted exams where dose is matched to clinical indication); or iterative reconstruction. COMPARISON: CT lumbar spine wo con* [id number] 02/26/2019 7:47 PM RADIATION DOSE METRICS: Total DLP (mGy-cm): 470.37 FINDINGS: Bones/joints: See L4-L5 finding. L1-L2: No significant disc bulge or herniation. No severe spinal canal stenosis. No significant neural foraminal narrowing. L2-L3: No significant disc bulge or herniation. No severe spinal canal stenosis. No significant neural foraminal narrowing. L3-L4: L3-L4 broad-based disc bulge with mild bilateral foraminal narrowing. L4-L5: L4-L5 broad-based disc bulge with moderate spinal canal and bilateral foraminal narrowing. L5-S1: L5-S1 broad-based disc bulge with [id number] bilateral foraminal narrowing. Gallbladder and biliary ducts: Cholelithiasis with possible gallbladder wall thickening, ultrasound could further characterize this. Vasculature: Extensive mesenteric and bilateral renal artery atherosclerotic calcifications. Soft tissues: Unremarkable. CT/CT lumbar spine wo con* [id number] IMPRESSION: 1. L3-L4 broad-based disc bulge with mild bilateral foraminal narrowing. 2. L4-L5 broad-based disc bulge with moderate spinal canal and bilateral foraminal narrowing. 3. L5-S1 broad-based disc bulge with [id number] bilateral foraminal narrowing. 4. Extensive mesenteric and bilateral renal artery atherosclerotic calcifications. 5. Cholelithiasis with possible gallbladder wall thickening, ultrasound could further characterize this.
--- NOTE | 2024-04-26 16:24 | PM.DCS ---
Discharge Providers Date of Admission: 04/25/24 16:34 Date of Discharge: April 26, 2024 Attending Provider at Admission: Shawn Campos MD Attending Provider at Discharge: Shawn Campos MD Primary Care Provider: Obey Rose MD Diagnoses at Discharge Discharge Diagnosis (1) Acute CVA (cerebrovascular accident): Status: Acute (2) Hypertension: Status: Acute (3) Diastolic heart failure: Status: Acute Qualifiers: Heart failure chronicity: unspecified Qualified Code(s): I50.30 - Unspecified diastolic (congestive) heart failure (4) Hypothyroidism: Status: Acute (5) Cystitis: Status: Acute Reason for Visit Reason for Visit: dizzy, high b/p, heart rate Hospital Course Hospital Course Trish Rocha is a 68 year old female with a past medical history of atrial fibrillation on Eliquis, hypertension, hyperlipidemia, history of benign positional vertigo, history of anemia, who presents to [facility] due to left leg numbness, dizziness, unsteadiness. Currently patient is alert oriented x 3, following all commands, is at bedside, she does complain of left leg numbness, she does complain of dizziness, her [id number]-[id number] is abnormal, has horizontal nystagmus, her NIH stroke scale is 3-4, patient is out of the tPA window, symptom onset was yesterday at 9:30 PM. She also tells me at this time at 9:30 PM yesterday, she checked her blood pressure and her blood pressure was high systolic into the 190s, and her heart rates were elevated into the 120s,. According to patient yesterday she was in [facility], she was at attending an event for her son, however his musical/ACT was canceled so they had returned to [place]. She tells me that about 930 last night, she noticed that her left leg was numb, she did not feel well, she felt dizzy, she had a headache, so she took a Tylenol PM and went to bed. She checked her blood pressure and heart rate as above. She also noticed chest palpitations. She tells me that she had a restless night, but denies feeling dizzy when rotating in bed. This morning when she woke up, she noticed that when getting up out of bed, she was unsteady on her feet she needed to grab onto things to help her balance, he also noticed that she continue to have numbness of her left leg, no specific weakness, no facial droop no slurring her words, no other weakness, but did continue to feel dizzy no nausea, no vomiting. She also rechecked her blood pressure and heart rate and her blood pressure read high, and her heart rates read high., She has been taking all her medications as prescribed, however she has not been able to refill her hydrochlorothiazide. Acute cerebrovascular accident -Symptomatology sounds like posterior circulation stroke -Certainly benign positional vertigo could be playing a role given her nystagmus but she reports a history of BPPV, she has undergone different maneuvers and techniques to PT and that have intermittently helped CT head CT/CT head wo con* [id number] IMPRESSION: 1. No evidence of intracranial hemorrhage or mass effect. 2. No acute intracranial findings. -CTA head and neck CT/CT angio headneck* [id number] IMPRESSION: 1. RIGHT ICA stenosis less than 50%. 2. LEFT ICA stenosis 50 to 55% with moderate calcified atheromatous plaque. 3. Both vertebral arteries are patent. 4. Mild intracranial atheromatous disease. No flow-limiting intracranial stenosis. MRI brain MR/MR head wo con* [id number] IMPRESSION: 1. No acute infarct or hemorrhage. 2. Stable mild volume loss and small vessel disease and a remote small infarct in the RIGHT cerebellum. 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 -NIH stroke scale 3-4 - last known well normal 9:30 PM April 24, 2024 -Out of tPA window -Currently no evidence of atrial fibrillation, does have a history of A-fib -Monitored as inpatient, permissive hypertension -PT OT -Overall clinically proved continue aspirin, statin, Eliquis -Discussed risks and benefits of adding Plavix, given high bleed risk, have elected to not on Plavix for now Physical Exam Const: COMMON NORMALS: no acute distress and patient oriented x3 Resp: COMMON NORMALS: normal respiratory effort, No retractions, No use of accessory muscles and clear to auscultation bilaterally AUSCULTATION: clear to auscultation bilaterally Cardio: COMMON NORMALS: regular rate, regular rhythm, S1 normal heart sound present and S2 normal heart sound present RATE: regular rate RHYTHM: regular rhythm HEART SOUNDS: S1 normal heart sound present and S2 normal heart sound present GI: COMMON NORMALS: Normal to inspection, nondistended, normoactive bowel sounds present and non-tender Extremity: COMMON NORMALS: no pedal edema Neuro: COMMON NORMALS: patient oriented x3 Psych: COMMON NORMALS: mental status grossly normal Discharge Data Studies Completed and Pending Completed Studies During Hospitalization Category Date Time Status CT head wo con* [id number] Stat Cat Scan 04/25/24 11:06 Completed CTA head neck [CT angio headneck* [id number]] Stat Cat Scan 04/25/24 13:45 Completed XR chest 1V portable [id number] Urgent Exams 04/25/24 10:49 Completed MR head wo con* [id number] Routine MRI 04/26/24 09:00 Completed CV. echo lmt wo/w bubble [id number] Routine Ultrasound 04/25/24 22:07 Completed Pending at discharge Category Date Time Status CT lumbar spine wo con* [id number] Stat Cat Scan 04/26/24 15:58 Ordered Complete Blood Count w/Auto AM LABS Lab 04/27/24 04:00 Ordered Complete Blood Count w/Auto AM LABS Lab 04/28/24 04:00 Ordered Comprehensive Metabolic Panel AM LABS Lab 04/27/24 04:00 Ordered Comprehensive Metabolic Panel AM LABS Lab 04/28/24 04:00 Ordered Radiology Impressions Chest X-Ray 04/25/24 10:49 IMPRESSION: No acute disease. Head CT 04/25/24 11:06 IMPRESSION: 1. No evidence of intracranial hemorrhage or mass effect. 2. No acute intracranial findings. Head/Neck CTA 04/25/24 13:45 IMPRESSION: 1. RIGHT ICA stenosis less than 50%. 2. LEFT ICA stenosis 50 to 55% with moderate calcified atheromatous plaque. 3. Both vertebral arteries are patent. 4. Mild intracranial atheromatous disease. No flow-limiting intracranial stenosis. Head MRI 04/26/24 09:00 IMPRESSION: 1. No acute infarct or hemorrhage. 2. Stable mild volume loss and small vessel disease and a remote small infarct in the RIGHT cerebellum. Laboratory Results WBC 8.41 10^3/uL (3.29-11.43) 04/26/24 02:44 RBC 3.26 10^6/uL (3.85-5.65) L 04/26/24 02:44 Hgb 9.20 g/dL (11.27-16.99) L 04/26/24 02:44 Hct 29.8 % (36-47) L 04/26/24 02:44 MCV 91.4 fl (85-98) 04/26/24 02:44 MCH 28.2 pg (27-33) 04/26/24 02:44 MCHC 30.9 g/dL (30-55) 04/26/24 02:44 RDW 14.6 % (12.1-15.1) 04/26/24 02:44 Plt Count 304 10^3/cmm (157-399) 04/26/24 02:44 MPV 9.0 fL (7.4-10.4) 04/26/24 02:44 Neut % (Auto) 55.1 % 04/26/24 02:44 Lymph % (Auto) 30.3 % 04/26/24 02:44 [place] % (Auto) 12.5 % 04/26/24 02:44 Eos % (Auto) 1.8 % 04/26/24 02:44 Baso % (Auto) 0.2 % 04/26/24 02:44 Neut # (Auto) 4.63 10^3/uL (1.8-7.7) 04/26/24 02:44 Lymph # (Auto) 2.6 10^3/uL (0.8-4.8) 04/26/24 02:44 [place] # (Auto) 1.1 10^3/uL (0.2-0.9) H 04/26/24 02:44 Eos # (Auto) 0.2 10^3/uL (0.0-0.8) 04/26/24 02:44 Baso # (Auto) 0.0 10^3/uL (0.0-0.1) 04/26/24 02:44 Nucleated RBC % (auto) 0 % 04/26/24 02:44 Nucleated RBCs # 0.0 /100WBC 04/26/24 02:44 PT 15.80 SECONDS (12.1-14.9) H 04/25/24 12:29 INR 1.18 (0.8-1.2) 04/25/24 12:29 Sodium 137 mmol/L (136-145) 04/26/24 02:44 Potassium 3.7 mmol/L (3.5-5.1) 04/26/24 02:44 Chloride 105 mmol/L (98-107) 04/26/24 02:44 Carbon Dioxide 23 mmol/L (22-29) 04/26/24 02:44 Anion Gap 12.7 (5-19) 04/26/24 02:44 BUN 18 mg/dL (8-23) 04/26/24 02:44 Creatinine 0.6 mg/dL (0.5-0.9) 04/26/24 02:44 GFR Calculation 99.7 mL/min (90-130) 04/26/24 02:44 Glucose 99 mg/dL (65-115) 04/26/24 02:44 Estimat Average Glucose 100 04/25/24 12:29 Hemoglobin A1c 5.1 % (4.0-6.0) 04/25/24 12:29 Calculated Osmolality 286 mOsm/kg (285-295) 04/26/24 02:44 Calcium 8.2 mg/dL (8.5-10.5) L 04/26/24 02:44 Total Bilirubin 0.2 mg/dL (0.15-1.2) 04/26/24 02:44 AST 10 U/L (0-32) 04/26/24 02:44 ALT 6 U/L (0-33) 04/26/24 02:44 Alkaline Phosphatase 49 U/L (35-105) 04/26/24 02:44 Troponin T Baseline 9 ng/L (0-10) 04/25/24 12:29 Troponin T 120 Minute 8.94 ng/L (0-10) 04/25/24 14:18 Delta Troponin T -0.06 ABS# (0-10) L 04/25/24 14:18 Troponin T Hi Sens 6Hr 12.01 ng/L (0-10) H 04/25/24 19:01 Troponin T Hi Sens 6Hr Delta 3.01 ng/L (0-12) 04/25/24 19:01 Total Protein 5.6 g/dL (6.6-8.7) L 04/26/24 02:44 Albumin 3.4 g/dL (3.5-5.2) L 04/26/24 02:44 Globulin 2.2 g/dL (1.3-4.6) 04/26/24 02:44 Triglycerides 103 mg/dL (0-150) 04/25/24 19:01 Cholesterol 132 mg/dL (0-200) 04/25/24 19:01 LDL Cholesterol, Calc 60 mg/dL (50-129) 04/25/24 19:01 HDL Cholesterol 51 mg/dL (60-100) L 04/25/24 19:01 LDL/HDL Ratio 1.18 RATIO (0.00-3.22) 04/25/24 19:01 Cholesterol/HDL Ratio 2.59 mg/dL (0.0-4.40) 04/25/24 19:01 Procalcitonin 0.03 ng/mL (0-0.5) 04/25/24 14:18 TSH 3.60 uIU/mL (0.27-4.20) 04/25/24 19:01 Urine Color Dark yellow (Yellow) A 04/25/24 11:52 Urine Appearance Clear (CLEAR) 04/25/24 11:52 Urine pH 8.5 (5-7) A 04/25/24 11:52 Ur Specific [place] 1.018 (1.005-1.030) 04/25/24 11:52 Urine Protein Negative (Negative) 04/25/24 11:52 Urine Glucose (UA) Negative (Normal) 04/25/24 11:52 Urine Ketones Negative (Negative) 04/25/24 11:52 Urine Blood Negative (Negative) 04/25/24 11:52 Urine Nitrate Negative (Negative) 04/25/24 11:52 Urine Bilirubin Negative (Negative) 04/25/24 11:52 Urine Urobilinogen 0.2 mg/dL (Negative) 04/25/24 11:52 Ur Leukocyte Esterase 2+ (Negative) A 04/25/24 11:52 Urine RBC 0-4 /hpf (0-2) H 04/25/24 11:52 Urine WBC 5-10 /hpf (0-5) H 04/25/24 11:52 Ur Squamous Epith Cells 0-4 /hpf (0-5) H 04/25/24 11:52 Amorphous Sediment Not Reportable 04/25/24 11:52 Urine Bacteria Trace /hpf (NONE) 04/25/24 11:52 Hyaline Casts 0-4 /lpf H 04/25/24 11:52 Urine Mucus None /hpf 04/25/24 11:52 Vitals Last Vital Signs Temp 98.4 F 04/26/24 16:00 Pulse 74 04/26/24 16:00 Resp 17 04/26/24 16:00 BP 182/81 04/26/24 16:00 Pulse Ox 98 04/26/24 16:00 O2 Del Method Room Air 04/26/24 16:00 Discharge Plan Discharge Patient Disposition: Home Condition: Stable Prescriptions: New hydrochlorothiazide 25 mg tablet 25 mg PO DAILY 30 Days Qty: 30 0RF Rx Instructions: start 04/29/2024 Continued (DME) left arm sling See Rx Instructions .Route .MEDSUPPLY Qty: 1 0RF Rx Instructions: As directed Eliquis 5 mg tablet 5 mg PO Q12H Qty: 60 11RF famotidine [Pepcid] 20 mg tablet 20 mg PO BID Qty: 180 11RF levothyroxine 25 mcg tablet 50 mcg PO DAILY Qty: 90 11RF fluticasone propionate 50 mcg/actuation spray,suspension 2 spray intranasal DAILY Qty: 16 11RF carvedilol 12.5 mg tablet 12.5 mg PO BID Qty: 60 11RF loratadine [Claritin] 10 mg tablet 10 mg PO DAILY Qty: 30 11RF magnesium oxide 400 mg (241.3 mg magnesium) tablet See Rx Instructions .ROUTE .COMPLEX Qty: 30 11RF Dose Instruction: TAKE 1 TABLET BY MOUTH DAILY Rx Instructions: TAKE 1 TABLET BY MOUTH DAILY oxycodone 5 mg tablet 10 mg PO Q6H PRN (Reason: pain) 7 Days Qty: 56 0RF Rx Instructions: 1 tab moderate pain 2 tabs severe pain hydrocodone-acetaminophen 5-325 mg tablet 1 tab PO Q8H PRN (Reason: pain) 30 Days Qty: 90 0RF trazodone 100 mg tablet See Rx Instructions .ROUTE .COMPLEX Qty: 30 11RF Dose Instruction: TAKE 1 TABLET BY MOUTH ONCE DAILY AT BEDTIME Rx Instructions: TAKE 1 TABLET BY MOUTH ONCE DAILY AT BEDTIME escitalopram oxalate 10 mg tablet 10 mg PO DAILY Qty: 60 2RF quetiapine [Seroquel] 100 mg tablet 100 mg PO BEDTIME atorvastatin 80 mg tablet 80 mg PO BEDTIME nifedipine 60 mg tablet extended release 24hr 60 mg PO DAILY aspirin 81 mg tablet,delayed release (DR/EC) 81 mg PO QAM ferrous sulfate 325 mg (65 mg iron) tablet 325 mg PO .EVERY OTHER DAY Held hydralazine 50 mg tablet 75 mg PO TID Qty: 90 11RF Hold Instructions: Resume on 04/30/24. lisinopril 40 mg tablet 40 mg PO DAILY Qty: 30 11RF Hold Instructions: Resume on 04/28/24. Discontinued meloxicam 15 mg tablet 15 mg PO DAILY Qty: 30 0RF hydrochlorothiazide 25 mg Tablet 25 mg PO DAILY Qty: 30 0RF metoprolol tartrate 100 mg tablet 100 mg PO BID Discharge Orders: Discharge Order (Routine); Ordered 04/26/24 Ordered By: Shawn Campos Other Ambulatory Orders: MCT/Event Monitor 30 Days (Routine) Timeframe: 1 Day Facility: [facility] - Location: Radiology Ordered By: Shawn Campos Referrals: Beatriz Harris MD [Physician] - 2 weeks Jean Claude Crow MD [Physician] - 6 Weeks Obey Rose MD [Primary Care Provider] - 05/02/24 3:00 pm () Discharge Diet: Cardiac Discharge Activity: Resume usual activity Patient Instructions: Hydrochlorothiazide (By mouth), Stroke (GEN), Opioid Safety, Stroke Stoplight Activity Restrictions/Additional Instructions: -if any stroke like symptoms call 911 -please wear event monitor, follow up with cardiology in 1 month -monitor blood ressure and heart rate closely Discharge Attestations Time Spent in Discharge Care*: greater than 30 min Status at Discharge: Cognitive status at discharge: mildly impaired cognition, Behavioral status at discharge: cooperative, Quality Metrics Clinical Quality Measures [ Cerebrovascular Accident { Contraindication to Antithrombotic: None; antithrombotic prescribed; Contraindication to Anticoagulation: None; anticoagulation prescribed; Contraindication to Statin: None; Statin prescribed;}] Coding Level of Care Code 33045 Total time (in minutes) for Discharge: 45 Diagnoses Acute CVA (cerebrovascular accident) I63.9 Hypertension I10 Diastolic heart failure, unspecified HF chronicity I50.30 Heart failure chronicity: unspecified Hypothyroidism E03.9 Cystitis N30.90
--- NOTE | 2024-04-26 19:34 | PC.NURSE ---
Discussed discharge with patient and spouse thoroughly. Discussed medications such as held medications and underlined when to resume the medications. Discussed follow up appointments and when to have the event monitor on at Dr. Crow's office. Patient and spouse verbalized understanding of all discussed.
== END 2024-04-26 19:05 | disposition home or self-care (01) | DRG 65 ==
LOC: ER 16:11 → ER IP 17:32 → MEDSURG 04-26 04:05
PROVIDERS: Physician Assistant; Admitting Provider Family Medicine; Emergency Provider Emergency Medicine; PCP Family Medicine; Visit Provider Family Medicine
DX: I63.9 Cerebral infarction, unspecified (principal); F31.81 Bipolar II disorder; I50.30 Unspecified diastolic (congestive) heart failure; R20.8 Other disturbances of skin sensation; H55.00 Unspecified nystagmus; I11.0 Hypertensive heart disease with heart failure; E03.9 Hypothyroidism, unspecified; N30.90 Cystitis, unspecified without hematuria; I48.91 Unspecified atrial fibrillation; E78.5 Hyperlipidemia, unspecified; R29.704 NIHSS score 4; Z87.891 Personal history of nicotine dependence; Z79.82 Long term (current) use of aspirin; Z79.01 Long term (current) use of anticoagulants
CPT/HCPCS: 36415; 36416; 70450; 70496; 70498; 70551; 71045; 72131; 80053; 80061; 81001; 83036; 84145; 84443; 84484; 85025; 85610; 92523; 93005; 96374; 96375; 97110; 97161; 97165; 99285; C8924; J0360; J0696; J1171; J1200; J1885; J2270; J2470; J2765; J7030; J8597

== ENCOUNTER → 2024-04-29 11:19 | Outpatient (BNVA) | payer MEDICARE, SELFPAY | PROVIDERS: PCP Family Medicine; Visit Provider Family Medicine | DX: R30.0 Dysuria (principal) | CPT/HCPCS: 81000 ==

== ENCOUNTER 2024-04-30 06:00 | Outpatient (RCR) | payer MEDICARE, OTHER, SELFPAY | END 2024-05-30 12:10 | disposition home or self-care (01) | LOC: SPT 06:00 | PROVIDERS: PCP Family Medicine; Visit Provider Student in an Organized Health Care Education/Training Program | DX: Z47.1 Aftercare following joint replacement surgery (principal); Z96.612 Presence of left artificial shoulder joint | CPT/HCPCS: 97110; 97112 ==

== ENCOUNTER 2024-05-06 21:48 | Emergency (ER) | payer MEDICARE, OTHER, SELFPAY ==
--- NOTE | 2024-05-06 21:50 | ECG_ITS ---
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 [email or web address]
[2024-05-06 22:02] VITALS: BP 89/56; PULSE 71; RESP 14; TEMP 36.5; O2SAT 99
--- NOTE | 2024-05-06 22:13 | CTR_ITS ---
PROCEDURE INFORMATION: Exam: CT Head Without Contrast Exam date and time: 05/06/2024 10:05 PM Age: 68 years old Clinical indication: Stroke-like symptoms; Dizziness/giddiness; Additional info: Stroke like symptoms TECHNIQUE: Imaging protocol: Computed tomography of the head without contrast. Radiation optimization: All CT scans at this facility use at least one of these dose optimization techniques: automated exposure control; mA and/or kV adjustment per patient size (includes targeted exams where dose is matched to clinical indication); or iterative reconstruction. Other technique: STROKE PROTOCOL was implemented. COMPARISON: MR head wo con* [id number] 04/26/2024 10:10 AM RADIATION DOSE METRICS: Total DLP (mGy-cm): 842.38 FINDINGS: Brain: Negative for intracranial hemorrhage. Central atrophy and mild periventricular deep white matter hypodensity, likely secondary to chronic microvascular ischemia. [place]-white matter differentiation otherwise maintained. Cerebral ventricles: No ventriculomegaly. Paranasal sinuses: Small, partially imaged left maxillary sinus mucous retention cyst. Mastoid air cells: Visualized mastoid air cells are well aerated. Bones: Unremarkable. No acute fracture. Soft tissues: Unremarkable. Other findings: Moderate to severe intracranial atherosclerosis. CT/CT head thrombolytic [id number] IMPRESSION: Negative for intracranial hemorrhage. No identified acute infarct. ASSESSMENT: ASPECTS ([place] Stroke Program Early CT Score) is 10.
--- NOTE | 2024-05-06 22:22 | W.ED.DIZZY ---
HPI - Dizziness General: Chief Complaint: Dizziness Stated Complaint: Dizzy,Feels Like shes going to pass out ,Headache Time Seen by Provider: 05/06/24 22:25 History of Present Illness: HPI Narrative: Patient presents to the ER from her home. With complaints of sudden onset intense dizziness that started about 2 hours ago. Patient also reports a headache to the right frontal area of her head. Patient is on Eliquis. Patient was recently discharged here approximately 2 weeks ago for right small cerebellar CVA. Patient states when she went home she was feeling better and only having intermittent dizziness but during the last 2 hours it is got worse and been constant. Patient also states that at that visit they changed her blood pressure medicine around and she should be on hydralazine 3 times a day but she is only been taking once a day because her blood pressure has been staying too low. Related Data Home Medications ?Medication ?Instructions ?Recorded ?Confirmed atorvastatin 80 mg tablet 80 mg PO BEDTIME 10/23/23 04/28/24 nifedipine 60 mg tablet,extended 60 mg PO DAILY 10/23/23 04/28/24 release 24 hr aspirin 81 mg tablet,delayed 81 mg PO QAM 01/15/24 04/28/24 release ferrous sulfate 325 mg (65 mg 325 mg PO .EVERY OTHER DAY 01/15/24 04/28/24 iron) tablet Previous Rx's ?Medication ?Instructions ?Recorded famotidine 20 mg tablet (Pepcid) 20 mg PO BID #180 tabs 06/10/23 hydralazine 50 mg tablet 75 mg (1.5 x 50 mg) PO TID #90 tabs 08/04/23 Held on 04/26/24. Instructions: Resume on 04/30/24. levothyroxine 25 mcg tablet 50 mcg (2 x 25 mcg) PO DAILY #90 08/04/23 tabs lisinopril 40 mg tablet 40 mg PO DAILY #30 tabs 08/31/23 Held on 04/26/24. Instructions: Resume on 04/28/24. left arm sling #1 ea 09/17/23 fluticasone propionate 50 2 spray intranasal DAILY #16 grams 10/23/23 mcg/actuation nasal spray,suspension carvedilol 12.5 mg tablet 12.5 mg PO BID #60 tabs 12/14/23 loratadine 10 mg tablet (Claritin) 10 mg PO DAILY #30 tabs 12/14/23 apixaban 5 mg tablet (Eliquis) 5 mg PO Q12H #60 tabs 12/31/23 magnesium oxide 400 mg (241.3 mg See Rx Instructions .Route 01/26/24 magnesium) tablet .COMPLEX #30 tabs escitalopram oxalate 10 mg tablet 10 mg PO DAILY #60 tabs 04/25/24 hydrochlorothiazide 25 mg tablet 25 mg PO DAILY 30 days #30 tabs 04/26/24 tramadol 50 mg tablet 50 mg PO Q6H PRN pain #60 tabs 04/28/24 meclizine 25 mg tablet 25 mg PO TID PRN dizziness #30 tabs 05/07/24 Allergies Allergy/AdvReac Type Severity Reaction Status Date / Time No Known Drug Allergies Allergy Unknown Verified 04/25/24 10:34 Review of Systems General: Reports: 10 or more systems reviewed and unremarkable except in HPI and below PFSH ED PFSH: Medical History Anemia Hypothyroidism Atrial fibrillation with RVR Hypotension Postoperative anemia Atrial fibrillation Right-sided lacunar infarction Severe pulmonary hypertension Diastolic heart failure On Coumadin for atrial fibrillation Elevated d-dimer Elevated troponin Dyspnea Hyponatremia Atrial fibrillation with RVR Dehydration Hyponatremia Altered mental status Subacromial impingement of left shoulder Rotator cuff tear, left Bipolar 2 disorder Anxiety Diabetes Hypercholesterolemia Syncope Urgency of urination Hypertension Surgical History S/P shoulder surgery Hx of section x 3 Hx of bilateral cataract extraction H/O gastric bypass Family History Grandmother Cancer Hyperlipidemia Hypertension Mother Hypertension CAD (coronary artery disease) unknown age of onset Denies family history of Diabetes Clotting disorder Dementia Chronic kidney disease (CKD) Suicide Anesthesia complication Bleeding disorder Lung disease Stroke Social History Smoking and tobacco/nicotine status: unknown if used tobacco/nicotine Alcohol intake: never Substance/Drug Use: never Marital status: Physical Exam Const: COMMON NORMALS: no acute distress, average body habitus, patient oriented x3, no limitations, healthy appearing, alert and well nourished HENMT: COMMON NORMALS: normocephalic, atraumatic, hearing grossly normal bilaterally, external ears normal, Normal external nose present, moist oral mucous membranes and oropharynx normal HEAD & SCALP: normocephalic and atraumatic NOSE: Normal external nose present EXTERNAL EAR: Yes external ears normal Eye: COMMON NORMALS: Equal, round and reactive pupils present, EOMs intact bilaterally, conjunctivae normal and no scleral icterus CONJUNCTIVA: Yes conjunctivae normal PUPIL: Yes Equal, round and reactive pupils present Neck/C-Spine: COMMON NORMALS: full ROM, no lymphadenopathy, supple, no meningeal signs and no JVD Chest: COMMONS NORMALS: normal inspection of the chest and normal palpation of entire chest wall Resp: COMMON NORMALS: normal respiratory effort, No retractions, No use of accessory muscles and clear to auscultation bilaterally AUSCULTATION: clear to auscultation bilaterally Cardio: COMMON NORMALS: no JVD, regular rate, regular rhythm, S1 normal heart sound present, S2 normal heart sound present, No gallops present (Cardio), No clicks present (Cardio), No murmurs present (Cardio) and No rub (Cardio) RATE: regular rate RHYTHM: regular rhythm HEART SOUNDS: S1 normal heart sound present and S2 normal heart sound present GI: COMMON NORMALS: Normal to inspection, nondistended, normoactive bowel sounds present, Soft to palpation, non-tender, No hepatosplenomegaly present and no masses PALPATION: Yes Soft to palpation and Yes No hepatosplenomegaly present Neuro: COMMON NORMALS: patient oriented x3 SENSORIUM/ORIENTATION: Yes alert MENINGEAL SIGNS: Yes no meningeal signs Course Vital Signs: Vital signs: Vital Signs Temperature 97.7 F 05/06/24 22:02 Pulse Rate 58 L 05/07/24 01:29 Respiratory Rate 18 05/07/24 01:29 Blood Pressure 113/51 05/07/24 01:29 Pulse Oximetry 98 05/07/24 01:29 Oxygen Delivery Me thod Room Air 05/07/24 00:47 MDM - Dizziness Medical Decision Making Discussed case with Dr. Wright, we will get a CTA looking for large vessel occlusion however she is probably had worsening of her cerebellar stroke. He says there is not a whole lot to other than do PT OT speech Discussed case with Dr. Melton who noted she is already getting physical therapy on her shoulder and she is already on all the current treatments for stroke suggested we could arrange outpatient physical therapy for her balance if we send her home. Lab work was reviewed as well as imaging all essentially unchanged. Patient's blood pressure fluctuated between about 89/56 to 126/61. It is thought maybe patient was getting orthostatic during some of her episodes. After given meclizine and Tylenol in the ER patient said she was feeling a little better. Discussed possible worsening of her cerebral Gema stroke but she is already under all the appropriate treatment. Patient already sees physical therapy for her shoulder she is going to asked them if they will do some physical therapy for her balance. Patient will be discharged from the hospital. Lab Data 05/06/24 22:47 05/06/24 22:[address] 05/06/24 22:13 IMPRESSION: Negative for intracranial hemorrhage. No identified acute infarct. ASSESSMENT: ASPECTS ([place] Stroke Program Early CT Score) is 10. ADDENDUM: 05/06/242227 Findings discussed with Dr. Ragsdale at 10:26 p.m. on 05/06/2024 Chest X-Ray 05/06/24: IMPRESSION: No visualized acute cardiopulmonary process. Head/Neck CTA 05/06/24 22: IMPRESSION: No large vessel occlusion or stenosis. IMPRESSION: 60% stenosis of the distal aspect of the left CCA. REFERENCES: NASCET CRITERIA. The degree of stenosis in the cervical segment of the internal carotid artery is based on NASCET criteria. Normal is no stenosis. Mild is less than 50% stenosis. Moderate is 50-69% stenosis. Severe is 70% to 99% stenosis. Total occlusion is no detectable patent lumen. Laboratory Results WBC 6.66 10^3/uL (3.29-11.43) 05/06/24 22:47 RBC 3.37 10^6/uL (3.85-5.65) L 05/06/24 22:47 Hgb 9.60 g/dL (11.27-16.99) L 05/06/24 22:47 Hct 30.2 % (36-47) L 05/06/24 22:47 MCV 89.6 fl (85-98) 05/06/24 22:47 MCH 28.5 pg (27-33) 05/06/24 22:47 MCHC 31.8 g/dL (30-55) 05/06/24 22:47 RDW 13.6 % (12.1-15.1) 05/06/24 22: Plt Count 283 10^3/cmm (157-399) 05/06/24 22:47 MPV 9.0 fL (7.4-10.4) 05/06/24 22:47 Neut % (Auto) 41.3 % 05/06/24 22:47 Lymph % (Auto) 42.3 % 05/06/24 22:47 [place] % (Auto) 13.1 % 05/06/24 22:47 Eos % (Auto) 2.7 % 05/06/24 22:47 Baso % (Auto) 0.3 % 05/06/24: Neut # (Auto) 2.75 10^3/uL (1.8-7.7) 05/06/24 22:47 Lymph # (Auto) 2.8 10^3/uL (0.8-4.8) 05/06/24 22:47 [place] # (Auto) 0.9 10^3/uL (0.2-0.9) 05/06/24 22:47 Eos # (Auto) 0.2 10^3/uL (0.0-0.8) 05/06/24 22:47 Baso # (Auto) 0.0 10^3/uL (0.0-0.1) 05/06/24: Nucleated RBC % (auto) 0 % 05/06/24: Nucleated RBCs # 0.0 /100WBC 05/06/24 22: PT 14.20 SECONDS (12.1-14.9) 05/06/24 22: INR 1.03 (0.8-1.2) 05/06/24: APTT 32.0 SECONDS (23.9-36.7) 05/06/24 22:47 Sodium 131 mmol/L (136-145) L 05/06/24 22:47 Potassium 4.0 mmol/L (3.5-5.1) 05/06/24 22:47 Chloride 95 mmol/L (98-107) L 05/06/24 22:47 Carbon Dioxide 28 mmol/L (22-29) 05/06/24 22:47 Anion Gap 12.0 (5-19) 05/06/24 22:47 BUN 27 mg/dL (8-23) H 05/06/24 22:47 Creatinine 0.9 mg/dL (0.5-0.9) 05/06/24 22:47 GFR Calculation 62.5 mL/min (90-130) L 05/06/24 22:47 Glucose 103 mg/dL (65-115) 05/06/24 22:47 Calculated Osmolality 277 mOsm/kg (285-295) L 05/06/24 22:47 Calcium 9.1 mg/dL (8.5-10.5) 05/06/24 22:47 Magnesium 2.1 mg/dL (1.7-2.3) 05/06/24 22:47 Total Bilirubin 0.2 mg/dL (0.15-1.2) 05/06/24 22:47 AST 15 U/L (0-32) 05/06/24 22:47 ALT 9 U/L (0-33) 05/06/24 22:47 Alkaline Phosphatase 71 U/L (35-105) 05/06/24 22:47 Total Protein 6.9 g/dL (6.6-8.7) 05/06/24 22:47 Albumin 3.9 g/dL (3.5-5.2) 05/06/24 22:47 Globulin 3.0 g/dL (1.3-4.6) 05/06/24 22:47 TSH 1.08 uIU/mL (0.27-4.20) 05/06/24 22:47 Urine Color Yellow (Yellow) 05/06/24 22:59 Urine Appearance Clear (CLEAR) 05/06/24 22:59 Urine pH 6.0 (5-7) 05/06/24 22:59 Ur Specific [place] 1.019 (1.005-1.030) 05/06/24 22:59 Urine Protein Negative (Negative) 05/06/24 22:59 Urine Glucose (UA) Negative (Normal) 05/06/24 22:59 Urine Ketones Trace (Negative) 05/06/24 22:59 Urine Blood Negative (Negative) 05/06/24 22:59 Urine Nitrate Negative (Negative) 05/06/24 22:59 Urine Bilirubin Negative (Negative) 05/06/24 22:59 Urine Urobilinogen 0.2 mg/dL (Negative) 05/06/24 22:59 Ur Leukocyte Esterase Negative (Negative) 05/06/24 22:59 Urine RBC 0-2 /hpf (0-2) 05/06/24 22:59 Urine WBC 0-5 /hpf (0-5) 05/06/24 22:59 Ur Squamous Epith Cells 5-10 /hpf (0-5) H 05/06/24 22:59 Amorphous Sediment Not Reportable 05/06/24 22:59 Urine Bacteria None seen /hpf (NONE) 05/06/24 22:59 Hyaline Casts 14.47 /lpf 05/06/24 22:59 Urine Opiates Screen Negative ng/mL (Negative) 05/06/24 22:59 Ur Barbiturates Screen Negative ng/mL (Negative) 05/06/24 22:59 Ur Phencyclidine Scrn Negative ng/mL (Negative) 05/06/24 22:59 Ur Amphetamines Screen Negative ng/mL (Negative) 05/06/24 22:59 U Benzodiazepines Scrn Negative ng/mL (Negative) 05/06/24 22:59 Urine Cocaine Screen Negative ng/mL (Negative) 05/06/24 22:59 U Marijuana (THC) Screen Positive ng/mL (Negative) H 05/06/24 22:59 Ethyl Alcohol 11 mg/dL (0-10) H 05/06/24 22:47 All radiology interpretation(s) finalized by discharge Discharge Plan Discharge Patient Disposition: Home Clinical Impression: Hypotension due to drugs, Vertigo as late effect of cerebrovascular accident (CVA) Condition: Stable Prescriptions: New meclizine 25 mg tablet 25 mg PO TID PRN (Reason: dizziness) Qty: 30 0RF No Action (DME) left arm sling See Rx Instructions .Route .MEDSUPPLY Qty: 1 0RF Rx Instructions: As directed Eliquis 5 mg tablet 5 mg PO Q12H Qty: 60 11RF tramadol 50 mg tablet 50 mg PO Q6H PRN (Reason: pain) Qty: 60 5RF famotidine [Pepcid] 20 mg tablet 20 mg PO BID Qty: 180 11RF hydralazine 50 mg tablet 75 mg PO TID Qty: 90 11RF levothyroxine 25 mcg tablet 50 mcg PO DAILY Qty: 90 11RF lisinopril 40 mg tablet 40 mg PO DAILY Qty: 30 11RF fluticasone propionate 50 mcg/actuation spray,suspension 2 spray intranasal DAILY Qty: 16 11RF carvedilol 12.5 mg tablet 12.5 mg PO BID Qty: 60 11RF loratadine [Claritin] 10 mg tablet 10 mg PO DAILY Qty: 30 11RF magnesium oxide 400 mg (241.3 mg magnesium) tablet See Rx Instructions .ROUTE .COMPLEX Qty: 30 11RF Dose Instruction: TAKE 1 TABLET BY MOUTH DAILY Rx Instructions: TAKE 1 TABLET BY MOUTH DAILY escitalopram oxalate 10 mg tablet 10 mg PO DAILY Qty: 60 2RF atorvastatin 80 mg tablet 80 mg PO BEDTIME nifedipine 60 mg tablet extended release 24hr 60 mg PO DAILY aspirin 81 mg tablet,delayed release (DR/EC) 81 mg PO QAM ferrous sulfate 325 mg (65 mg iron) tablet 325 mg PO .EVERY OTHER DAY hydrochlorothiazide 25 mg tablet 25 mg PO DAILY 30 Days Qty: 30 0RF Rx Instructions: start 04/29/2024 Discharge Orders: Discharge ED (Routine); Ordered 05/07/24 Ordered By: Wyatt Ragsdale Referrals: Obey Rose MD [Primary Care Provider] - 1 week Patient Instructions: Vertigo (DC), Hypotension (ED) Activity Restrictions/Additional Instructions: Your evaluation in the ER was essentially unremarkable. Your blood pressure was on the lower side with the lowest being 89/56. This may contribute to your being off balance and your vertigo. Please hold your hydralazine if your blood pressure is lower than 100/60. Please keep a blood pressure log. Case management has been consulted to refer you to physical therapy specifically for your balance. Please follow-up with your family practice physician in the next 7 days for further evaluation and treatment. Thank you for choosing [facility] [place] for your healthcare needs today. Please realize that you were seen in the emergency department and that we are providing you with an emergency medical screening exam and this may not be a complete and all exclusive of all testing and/or medical workup we may need to determine your element or severity of your illness. It is very important that you follow-up as instructed with your primary care provider or specialist for the additional evaluation and to discuss your medical treatment plan. You may return to the emergency department should you have concerns or if your condition changes or worsens in any way. Print Language: Cambodian Coding Level of Care Code ED Director Of Convention Services for Mayela Jacobsen NIH stroke score NIHSS Level Of Consciousness - 1a: 0 Level Of Consciousness Questions - 1b: Both Correct Level Of Consciousness Commands - 1c: Both Correct Best Gaze - 2: Normal Visual Sanchez - 3: No Visual Loss Facial Palsy - 4: Normal Motor Arm Right - 5: No Drift Motor Arm Left - 5: No Drift Motor Leg Right - 6: No Drift Motor Leg Left - 6: No Drift Limb Ataxia - 7: Absent Sensory - 8: Normal Best Language - 9: No Aphasia Dysarthia - 10: Normal Extinction And Inattention - 11: 0 Score Total Score: 0
--- NOTE | 2024-05-06 22:25 | XRR_ITS ---
PROCEDURE INFORMATION: Exam: XR Chest Exam date and time: 05/06/2024 10:58 PM Age: 68 years old Clinical indication: Dizziness; Syncopal episode; PT currently has halter monitor on; Additional info: Dizziness; Syncopal episode; Hypotension; PT currently has halter monitor on TECHNIQUE: Imaging protocol: Radiologic exam of the chest. Views: 1 view. COMPARISON: CR XR chest 1V portable [id number] 04/25/2024 10:55 AM FINDINGS: Lungs: Unremarkable. No consolidation. Pleural spaces: Unremarkable. No pleural effusion. No pneumothorax. Heart/Mediastinum: Heart normal in size. Bones/joints: Left shoulder reverse arthroplasty in stable position without identified complication. [id number] bilateral shoulder degenerative osteoarthritis. No acute osseous abnormality. Other findings: Electronics package now projecting over the midline upper cardiomediastinal silhouette. XR/XR chest 1V portable [id number] IMPRESSION: No visualized acute cardiopulmonary process.
--- NOTE | 2024-05-06 22:25 | CTR_ITS ---
PROCEDURE INFORMATION: Exam: CTA Head With Contrast, Arteriography Exam date and time: 05/06/2024 11:10 PM Age: 68 years old Clinical indication: Dizziness and giddiness; C/O severe dizziness with DUKES; Additional info: Sudden onset intense dizziness, right head pain TECHNIQUE: Imaging protocol: Computed tomographic angiography of the head with contrast. Exam focused on the arteries. 3D rendering (Not supervised by radiologist): MIP and/or 3D reconstructed images were created by the technologist. Radiation optimization: All CT scans at this facility use at least one of these dose optimization techniques: automated exposure control; mA and/or kV adjustment per patient size (includes targeted exams where dose is matched to clinical indication); or iterative reconstruction. Contrast material: OMNI 350; Contrast volume: 100 ml; Contrast route: INTRAVENOUS (IV); COMPARISON: CT angio headneck* [id number] 04/25/2024 2:42 PM RADIATION DOSE METRICS: Total DLP (mGy-cm): 409.77 FINDINGS: ANTERIOR CIRCULATION: Right internal carotid artery: Intracranial segment is patent with no significant stenosis. No aneurysm. Right middle cerebral artery: No occlusion or significant stenosis. No aneurysm. Right anterior cerebral artery: No occlusion or significant stenosis. No aneurysm. Left internal carotid artery: Intracranial segment is patent with no significant stenosis. No aneurysm. Left middle cerebral artery: No occlusion or significant stenosis. No aneurysm. Left anterior cerebral artery: No occlusion or significant stenosis. No aneurysm. POSTERIOR CIRCULATION: Right vertebral artery: No occlusion or significant stenosis. No aneurysm. Left vertebral artery: No occlusion or significant stenosis. No aneurysm. Basilar artery: No occlusion or significant stenosis. No aneurysm. Right posterior cerebral artery: No occlusion or significant stenosis. No aneurysm. Left posterior cerebral artery: No occlusion or significant stenosis. No aneurysm. Brain: No definite mass, mass effect, or midline shift. Cerebral ventricles: No ventriculomegaly. Bones/joints: Unremarkable. No acute fracture. Soft tissues: Unremarkable. PROCEDURE INFORMATION: Exam: CTA Neck With Contrast Exam date and time: 05/06/2024 11:10 PM Age: 68 years old Clinical indication: Dizziness and giddiness; C/O severe dizziness with DUKES; Additional info: Sudden onset intense dizziness, right head pain TECHNIQUE: Imaging protocol: Computed tomographic angiography of the neck with contrast. Exam focused on the cervical segments of the vasculature. 3D rendering (Not supervised by radiologist): MIP and/or 3D reconstructed images were created by the technologist. Radiation optimization: All CT scans at this facility use at least one of these dose optimization techniques: automated exposure control; mA and/or kV adjustment per patient size (includes targeted exams where dose is matched to clinical indication); or iterative reconstruction. Contrast material: OMNI 350; Contrast volume: 100 ml; Contrast route: INTRAVENOUS (IV); COMPARISON: CT angio headneck* [id number] 04/25/2024 2:42 PM RADIATION DOSE METRICS: Total DLP (mGy-cm): 409.77 FINDINGS: Right common carotid artery: There are calcifications of the right distal CCA without significant stenosis. Right internal carotid artery: No stenosis of the extracranial segment. No dissection or occlusion. Right external carotid artery: No occlusion or stenosis of the origin. Left common carotid artery: 60% stenosis of the distal aspect of the left CCA. Left internal carotid artery: No stenosis of the extracranial segment. No dissection or occlusion. Left external carotid artery: No occlusion or stenosis of the origin. Right vertebral artery: No stenosis. No dissection or occlusion. Left vertebral artery: No stenosis. No dissection or occlusion. Other arteries: There is severe atherosclerotic disease. Soft tissues: Normal. No significant soft tissue swelling. Bones/joints: No acute fracture. CT/CT angio headneck* [id number] IMPRESSION: No large vessel occlusion or stenosis. IMPRESSION: 60% stenosis of the distal aspect of the left CCA. REFERENCES: NASCET CRITERIA. The degree of stenosis in the cervical segment of the internal carotid artery is based on NASCET criteria. Normal is no stenosis. Mild is less than 50% stenosis. Moderate is 50-69% stenosis. Severe is 70% to 99% stenosis. Total occlusion is no detectable patent lumen.
--- NOTE | 2024-05-06 22:26 | ECG_ITS ---
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 Measurements Intervals [place] Rate: 54 P: 9 NH: 171 QRS: 41 QRSD: 101 T: 35 QT: 456 QTc: 433 Interpretive Statements SINUS BRADYCARDIA Compared to ECG 05/06/2024 21:54:13 Sinus rhythm no longer present Electronically Signed On 05-07-2024 17:58:43 MARINE DIESEL TECHNICIAN by Sam Robertson M.D. [email or web address]
[2024-05-06 22:51] LABS: Basophils % 0.3 %; Eosinophils # 0.2 10^3/uL (0.0-0.8); Eosinophils % 2.7 %; Hematocrit 30.2 % (36-47); Lymphocytes # 2.8 10^3/uL (0.8-4.8); Lymphocytes % 42.3 %; Mean Corpuscular HGB Conc 31.8 g/dL (30-55); Mean Corpuscular Hemoglobin 28.5 pg (27-33); Mean Corpuscular Volume 89.6 fl (85-98); Monocytes # 0.9 10^3/uL (0.2-0.9); Monocytes % 13.1 %; Neutrophils # 2.75 10^3/uL (1.8-7.7); Neutrophils % 41.3 %; Nucleated Red Blood Cells % 0 %; Platelet Count 283 10^3/cmm (157-399); Red Blood Count 3.37 10^6/uL (3.85-5.65); Red Cell Distribution Width 13.6 % (12.1-15.1); White Blood Count 6.66 10^3/uL (3.29-11.43)
[2024-05-06 23:03] LABS: INR 1.03 (0.8-1.2)
[2024-05-06] MEDS: iohexol 350 mg/mL 500 mL Btl (per mL) IV (23:16)
[2024-05-06 23:19] LABS: Alanine Aminotransferase 9 U/L (0-33); Albumin Level 3.9 g/dL (3.5-5.2); Alcohol Level 11 mg/dL (0-10); Alkaline Phosphatase 71 U/L (35-105); Aspartate Amino Transferase 15 U/L (0-32); Blood Urea Nitrogen 27 mg/dL (8-23); Calcium 9.1 mg/dL (8.5-10.5); Carbon Dioxide 28 mmol/L (22-29); Chloride 95 mmol/L (98-107); Creatinine Clr Calc Pharmacy 50.2226; Glomerular Filtration Rate 62.5 mL/min (90-130); Glucose 103 mg/dL (65-115); Magnesium 2.1 mg/dL (1.7-2.3); Osmolality Calculated 277 mOsm/kg (285-295); Sodium 131 mmol/L (136-145); Thyroid Stimulating Hormone 1.08 uIU/mL (0.27-4.20); Total Bilirubin 0.2 mg/dL (0.15-1.2); Total Protein 6.9 g/dL (6.6-8.7)
[2024-05-06 23:27] LABS: Bilirubin Urine Negative (Negative); Blood Urine Negative (Negative); Glucose Urine UA Negative (Normal); Ketones Urine Trace (Negative); Leukocyte Esterase Urine Negative (Negative); Nitrate Urine Negative (Negative); Protein Urine Negative (Negative); Specific Gravity, Urine 1.019 (1.005-1.030); Urine Appearance Clear (CLEAR); Urine Color Yellow (Yellow); Urobilinogen Urine 0.2 mg/dL (Negative)
[2024-05-06 23:29] LABS: Add Urine Microscopic? YES; Bacteria Urine None Seen /hpf; Hyaline Casts Urine 14.47 /lpf; RBC Urine 0-2 /hpf (0-2); Universal Test for UA Present (0); WBC Urine 0-5 /hpf (0-5)
[2024-05-06 23:31] VITALS: BP 116/50; PULSE 54; RESP 17; O2SAT 98
[2024-05-06 23:45] LABS: Amphetamines Screen Urine Negative (Negative); Barbiturates Screen Urine Negative (Negative); Benzodiazepines Screen Urine Negative (Negative); Cocaine Screen Urine Negative (Negative); Opiate Screen Urine Negative (Negative); PCP Screen Urine Negative (Negative); THC Screen Urine Positive (Negative)
[2024-05-07 00:47] VITALS: BP 126/61; PULSE 63; RESP 23; O2SAT 94
[2024-05-07] MEDS: acetaminophen 500 mg Tablet 1000 MG PO (00:47)
[2024-05-07 01:29] VITALS: BP 113/51; PULSE 58; RESP 18; O2SAT 98
--- NOTE | 2024-05-11 08:05 | DCPLANNER ---
Message sent to Physical therapy for referral
== END 2024-05-07 01:30 | disposition home or self-care (01) ==
PROVIDERS: Emergency Provider Emergency Medicine; PCP Family Medicine
DX: I95.2 Hypotension due to drugs (principal); I63.9 Cerebral infarction, unspecified; Z79.01 Long term (current) use of anticoagulants; Z79.82 Long term (current) use of aspirin; E11.9 Type 2 diabetes mellitus without complications; I10 Essential (primary) hypertension
CPT/HCPCS: 36415; 70450; 70496; 70498; 71045; 80053; 80306; 80307; 81001; 83735; 84443; 85025; 85610; 85730; 93005; 99285

== ENCOUNTER → 2024-05-18 12:54 | Outpatient (BNVA) | payer MEDICARE, OTHER, SELFPAY | PROVIDERS: PCP Family Medicine; Visit Provider Student in an Organized Health Care Education/Training Program | DX: Z96.612 Presence of left artificial shoulder joint (principal); M12.811 Other specific arthropathies, not elsewhere classified, right shoulder; M67.911 Unspecified disorder of synovium and tendon, right shoulder; M67.912 Unspecified disorder of synovium and tendon, left shoulder | CPT/HCPCS: 73030; 99214 ==

== ENCOUNTER → 2024-05-23 16:09 | Outpatient (BNVA) | payer MEDICARE, OTHER, SELFPAY | PROVIDERS: PCP Family Medicine; Visit Provider Family Medicine | DX: I10 Essential (primary) hypertension (principal); E87.1 Hypo-osmolality and hyponatremia; D64.9 Anemia, unspecified | CPT/HCPCS: 80048; 85025 ==

== ENCOUNTER 2024-05-29 15:12 | Emergency (ER) | payer MEDICARE, SELFPAY ==
[2024-05-29 15:15] VITALS: BP 96/46; PULSE 92; TEMP 37.4; O2SAT 99; BMI 24.9
--- NOTE | 2024-05-29 15:21 | ECG_ITS ---
[email or web address] [facility] Test Date: 2024-05-29 Pat Name: Trish Rocha Department: Room: Gender: Female [employer]er: : 1955 Requested By: Frida Mariscal Order Number: [id number] Reading MD: Measurements Intervals [place] Rate: 87 P: 58 NC: 134 QRS: 29 QRSD: 81 T: 29 QT: 349 QTc: 420 Interpretive Statements SINUS RHYTHM WITH OCCASIONAL SUPRAVENTRICULAR PREMATURE COMPLEXES INTERPRETATION BASED ON A DEFAULT AGE OF 40 YEARS No previous ECG available for comparison [id number]
--- NOTE | 2024-05-29 15:23 | XR_ITS ---
WS: [id number] PORTABLE CHEST HISTORY: Chest pain COMPARISON: 05/06/2024 Mild hyperinflation. No focal area of consolidation. No pleural effusion or pneumothorax. Cardiac size: Heart size is normal. Curvilinear calcification over the LEFT heart suggesting mitral annular calcification. Mediastinum/Aorta: Moderate atherosclerosis aorta. No mediastinal widening. Prior LEFT shoulder arthroplasty. Holter monitor device over the mid chest. XR/XR chest 1V portable [id number] IMPRESSION: 1. No pulmonary nodule or mass. 2. No pneumonia. 3. Mitral annular calcification and atherosclerosis aorta.
--- NOTE | 2024-05-29 15:49 | W.ED.WEAKNES ---
HPI - Weakness General: Chief complaint: Weakness Stated complaint: feeling faint, chest pain Time Seen by Provider: 05/29/24 15:33 History of Present Illness: 68-year-old female with a history of atrial fibrillation on chronic anticoagulation with Eliquis, bipolar disorder, anxiety, diabetes, episodes of syncope, hypertension and hyperlipidemia who presents to the emergency room with complaints of generalized weakness and feeling unwell for a few days. She feels short of breath. She has had some chest pain. She says she is felt dizzy. She has had a headache as well. She had a 32nd syncopal episode in triage. says she is frequently syncopal when she is ill. Apparently she has recently had shoulder surgery and planning on having another. No known fevers. Blood pressure soft on presentation. Temp is 99.3. Review of Systems Narrative: Constitutional symptoms: Negative except as documented in HPI. Skin symptoms: Negative except as documented in HPI. Eye symptoms: Negative except as documented in HPI. ENMT symptoms: Negative except as documented in HPI. Respiratory symptoms: Negative except as documented in HPI. Cardiovascular symptoms: Negative except as documented in HPI. Gastrointestinal symptoms: Negative except as documented in HPI. Genitourinary symptoms: Negative except as documented in HPI. Musculoskeletal symptoms: Negative except as documented in HPI. Neurologic symptoms: Negative except as documented in HPI. Psychiatric symptoms: Negative except as documented in HPI. Endocrine symptoms: Negative except as documented in HPI. PFS ED PFSH: Medical History Anemia Hypothyroidism Atrial fibrillation with RVR Hypotension Postoperative anemia Atrial fibrillation Right-sided lacunar infarction Severe pulmonary hypertension Diastolic heart failure On Coumadin for atrial fibrillation Elevated d-dimer Elevated troponin Dyspnea Hyponatremia Atrial fibrillation with RVR Dehydration Hyponatremia Altered mental status Subacromial impingement of left shoulder Rotator cuff tear, left Bipolar 2 disorder Anxiety Diabetes Hypercholesterolemia Syncope Urgency of urination Hypertension Surgical History S/P shoulder surgery Hx of section x 3 Hx of bilateral cataract extraction H/O gastric bypass Family History Grandmother Cancer Hyperlipidemia Hypertension Mother Hypertension CAD (coronary artery disease) unknown age of onset Denies family history of Diabetes Clotting disorder Dementia Chronic kidney disease (CKD) Suicide Anesthesia complication Bleeding disorder Lung disease Stroke Social History Smoking and tobacco/nicotine status: unknown if used tobacco/nicotine Alcohol intake: never Substance/Drug Use: never Marital status: Physical Exam Narrative: EXAM NARRATIVE: General: Alert, no acute distress. Skin: Warm, dry. Flushed cheeks. said this is not normal Head: Normocephalic, atraumatic. Neck: Supple, trachea midline. Eye: Extraocular movements are intact. Ears, nose, mouth and throat: mucosa moist. Cardiovascular: Regular, Normal peripheral perfusion. Respiratory: Lungs are clear to auscultation, respirations are non-labored, breath sounds are equal, Symmetrical chest wall expansion. Gastrointestinal: Soft, Nontender, Non distended Musculoskeletal: Normal ROM, no deformity. Neurological: Alert and oriented, No focal neurological deficit observed. Psychiatric: Cooperative, appropriate mood & affect. Course Vital Signs: Vital signs: Vital Signs Temperature 99.3 F 05/29/24 15:15 Pulse Rate 74 05/29/24 18:00 Respiratory Rate 16 05/29/24 18:00 Blood Pressure 104/55 05/29/24 18:00 Pulse Oximetry 100 05/29/24 18:00 Oxygen Delivery Me thod Room Air 05/29/24 18:00 MDM - Weakness Medical Decision Making Medical decision making: Differential diagnosis for patient presenting with generalized weakness including but not limited to and based on the above HPI, review of systems and physical exam: Sepsis. Dehydration. Renal failure. Electrolyte abnormalities. Anemia. Congestive heart failure. Hypotension. Coronary syndrome. Hepatitis. Cirrhosis. Infections such as pneumonia, urinary tract infection, [place] illness, Cellulitis, Viral infections including influenza and Covid-19. Workup: labwork and lab/exam driven imaging ordered to evaluate, rule in and rule out above pathologies. EKG: Time 1521. Rate 87. Normal sinus rhythm, No ST-T changes, PVCs, normal KS & QRS intervals, This was reviewed and interpreted by myself the ER physician at 1527 Chest x-ray: No acute process. No infiltrate. No pneumothorax. This was reviewed and interpreted by myself the emergency room physician. I also reviewed the radiology report. Lab Review: Laboratory results were reviewed and interpreted by myself the emergency room physician. No leukocytosis. No anemia. No renal failure. Urine does not show signs of infection. Flu COVID and RSV are negative. I reviewed the patient's medical record. --history of atrial fibrillation on chronic anticoagulation with Eliquis, bipolar disorder, anxiety, diabetes, episodes of syncope, hypertension and hyperlipidemia --I reviewed the patient's [employer]. She has had multiple tramadol and hydrocodone prescriptions filled over the last couple of weeks from multiple different providers. She says both providers are aware. Reexamination: Patient seems much more alert at this point. The flushing has improved. She says she feels much better and wants to go home. She may have a bit of a viral illness. She has got some malaise and a mild temperature. I also discussed with her that I am concerned about the number of narcotic prescriptions she is gotten recently and that she needs to talk to her primary about what she should and should not be taking. She says she has not had any pain medicines in the last 2 days. No increased work of breathing. No altered mental status. Her and want to go home Assessment and plan: Dehydration Polypharmacy Viral syndrome Headache ? Normal saline bolus in the emergency room. ?IV Tylenol for headache. - Discharged home - Discussed plan with patient. Answered any questions. - Evaluation and treatment of this problem were appropriate in the emergency setting. Lab Data 05/29/24 15:48 05/29/24 15:48 Laboratory Results WBC 11.10 10^3/uL (3.29-11.43) 05/29/24 15:48 RBC 3.82 10^6/uL (3.85-5.65) L 05/29/24 15:48 Hgb 10.80 g/dL (11.27-16.99) L 05/29/24 15:48 Hct 32.9 % (36-47) L 05/29/24 15:48 MCV 86.1 fl (85-98) 05/29/24 15:48 MCH 28.3 pg (27-33) 05/29/24 15:48 MCHC 32.8 g/dL (30-55) 05/29/24 15:48 RDW 13.5 % (12.1-15.1) 05/29/24 15:48 Plt Count 288 10^3/cmm (157-399) 05/29/24 15:48 MPV 9.5 fL (7.4-10.4) 05/29/24 15:48 Neut % (Auto) 89.8 % 05/29/24 15:48 Lymph % (Auto) 5.5 % 05/29/24 15:48 [place] % (Auto) 4.3 % 05/29/24 15:48 Eos % (Auto) 0.0 % 05/29/24 15:48 Baso % (Auto) 0.1 % 05/29/24 15:48 Neut # (Auto) 9.97 10^3/uL (1.8-7.7) H 05/29/24 15:48 Lymph # (Auto) 0.6 10^3/uL (0.8-4.8) L 05/29/24 15:48 [place] # (Auto) 0.5 10^3/uL (0.2-0.9) 05/29/24 15:48 Eos # (Auto) 0.0 10^3/uL (0.0-0.8) 05/29/24 15:48 Baso # (Auto) 0.0 10^3/uL (0.0-0.1) 05/29/24 15:48 Nucleated RBC % (auto) 0 % 05/29/24 15:48 Nucleated RBCs # 0.0 /100WBC 05/29/24 15:48 Sodium 130 mmol/L (136-145) L 05/29/24 15:48 Potassium 3.4 mmol/L (3.5-5.1) L 05/29/24 15:48 Chloride 94 mmol/L (98-107) L 05/29/24 15:48 Carbon Dioxide 20 mmol/L (22-29) L 05/29/24 15:48 Anion Gap 19.4 (5-19) H 05/29/24 15:48 BUN 14 mg/dL (8-23) 05/29/24 15:48 Creatinine 0.9 mg/dL (0.5-0.9) 05/29/24 15:48 GFR Calculation 62.5 mL/min (90-130) L 05/29/24 15:48 Glucose 122 mg/dL (65-115) H 05/29/24 15:48 Calculated Osmolality 272 mOsm/kg (285-295) L 05/29/24 15:48 Calcium 8.9 mg/dL (8.5-10.5) 05/29/24 15:48 Total Bilirubin 0.3 mg/dL (0.15-1.2) 05/29/24 15:48 AST 15 U/L (0-32) 05/29/24 15:48 ALT 7 U/L (0-33) 05/29/24 15:48 Alkaline Phosphatase 61 U/L (35-105) 05/29/24 15:48 Troponin T Baseline 9 ng/L (0-10) 05/29/24 15:48 Troponin T 120 Minute 8.71 ng/L (0-10) 05/29/24 17:21 Delta Troponin T -0.29 ABS# (0-10) L 05/29/24 17:21 C-Reactive Protein 35.4 mg/L (0.0-4.9) H 05/29/24 15:48 NT-Pro-B Natriuret Pep 1531 pg/mL (0-125) H 05/29/24 15:48 Total Protein 6.9 g/dL (6.6-8.7) 05/29/24 15:48 Albumin 4.1 g/dL (3.5-5.2) 05/29/24 15:48 Globulin 2.8 g/dL (1.3-4.6) 05/29/24 15:48 Urine Color Yellow (Yellow) 05/29/24 16:22 Urine Appearance Clear (CLEAR) 05/29/24 16:22 Urine pH 9 (5-7) A 05/29/24 16:22 Ur Specific [place] 1.010 (1.005-1.030) 05/29/24 16:22 Urine Protein Neg (Negative) 05/29/24 16:22 Urine Glucose (UA) Norm (Normal) 05/29/24 16:22 Urine Ketones 1+ (Negative) H 05/29/24 16:22 Urine Blood Neg (Negative) 05/29/24 16:22 Urine Nitrate Negative (Negative) 05/29/24 16:22 Urine Bilirubin Neg (Negative) 05/29/24 16:22 Urine Urobilinogen Neg mg/dL (Negative) 05/29/24 16:22 Ur Leukocyte Esterase Negative (Negative) 05/29/24 16:22 Urine RBC 11-20 /hpf (0-2) H 05/29/24 16:22 Urine WBC 0-5 /hpf (0-5) 05/29/24 16:22 Ur Squamous Epith Cells 0-5 /hpf (0-5) 05/29/24 16:22 Amorphous Sediment Not Reportable 05/29/24 16:22 Urine Bacteria None seen /hpf (NONE) 05/29/24 16:22 Hyaline Casts 0-4 /lpf H 05/29/24 16:22 Urine Opiates Screen Positive ng/mL (Negative) H 05/29/24 16:22 Ur Barbiturates Screen Negative ng/mL (Negative) 05/29/24 16:22 Ur Phencyclidine Scrn Negative ng/mL (Negative) 05/29/24 16:22 Ur Amphetamines Screen Negative ng/mL (Negative) 05/29/24 16:22 U Benzodiazepines Scrn Negative ng/mL (Negative) 05/29/24 16:22 Urine Cocaine Screen Negative ng/mL (Negative) 05/29/24 16:22 U Marijuana (THC) Screen Positive ng/mL (Negative) H 05/29/24 16:22 Influenza A (PCR) Negative (Negative) 05/29/24 17:03 Influenza Type B (PCR) Negative (Negative) 05/29/24 17:03 RSV (PCR) Negative (Negative) 05/29/24 17:03 SARS-CoV-2 (PCR) Negative (Negative) 05/29/24 17:03 All radiology interpretation(s) finalized by discharge Discharge Plan Discharge Patient Disposition: Home Clinical Impression: Dehydration, Polypharmacy, Acute viral syndrome Condition: Stable Prescriptions: No Action (DME) left arm sling See Rx Instructions .Route .MEDSUPPLY Qty: 1 0RF Rx Instructions: As directed Eliquis 5 mg tablet 5 mg PO Q12H Qty: 60 11RF famotidine [Pepcid] 20 mg tablet 20 mg PO BID Qty: 180 11RF levothyroxine 25 mcg tablet 50 mcg PO DAILY Qty: 90 11RF lisinopril 40 mg tablet 40 mg PO DAILY Qty: 30 11RF carvedilol 12.5 mg tablet 12.5 mg PO BID Qty: 60 11RF loratadine [Claritin] 10 mg tablet 10 mg PO DAILY Qty: 30 11RF escitalopram oxalate 10 mg tablet 10 mg PO DAILY Qty: 60 2RF hydrocodone-acetaminophen 5-325 mg tablet 1 tab PO Q4H PRN (Reason: pain) 5 Days Qty: 30 0RF atorvastatin 80 mg tablet 80 mg PO BEDTIME nifedipine 60 mg tablet extended release 24hr 60 mg PO DAILY tramadol 50 mg tablet 50 mg PO Q6H PRN (Reason: Pain, Mild) magnesium oxide 400 mg (241.3 mg magnesium) tablet 400 mg PO DAILY hydralazine 50 mg tablet 50 mg PO BID Rx Instructions: with stable bp fluticasone propionate 50 mcg/actuation spray,suspension 2 spray intranasal DAILY PRN (Reason: allergies) aspirin 81 mg tablet,delayed release (DR/EC) 81 mg PO QAM ferrous sulfate 325 mg (65 mg iron) tablet 325 mg PO .EVERY OTHER DAY meclizine 25 mg tablet 25 mg PO TID PRN (Reason: dizziness) Qty: 30 0RF Discharge Orders: Discharge ED (Routine); Ordered 05/29/24 Ordered By: Frida Mcconnell Referrals: Obey Rose MD [Primary Care Provider] - Discharge Diet: Usual diet Discharge Activity: Increase activity as tolerated Patient Instructions: Dehydration (ED), Opioid Safety, Pain Management Activity Restrictions/Additional Instructions: Thank you for choosing [facility] for your healthcare needs today. Please realize this is an emergency room and that we are providing you with a medical screening exam and this may not be complete and all inclusive of all the testing and or work up that you may need to determine your ailment or severity of your illness. You have been screened and evaluated and felt safe for discharge. Health conditions do change or evolve sometimes and as such it is important that you follow up with your Primary Doctor to be re checked, 3-5 days is a general good time frame for follow up. You are always welcome to return to the ED for re assessment if your symptoms are worsening or you have new concerns Print Language: Sami Coding Level of Care Code ED Rag Washer for Chg Fwd Related Data Home Medications ?Medication ?Instructions ?Recorded ?Confirmed atorvastatin 80 mg tablet 80 mg PO BEDTIME 10/23/23 05/29/24 nifedipine 60 mg tablet,extended 60 mg PO DAILY 10/23/23 05/29/24 release 24 hr aspirin 81 mg tablet,delayed 81 mg PO QAM 01/15/24 05/29/24 release ferrous sulfate 325 mg (65 mg 325 mg PO .EVERY OTHER DAY 01/15/24 05/29/24 iron) tablet fluticasone propionate 50 2 spray intranasal DAILY PRN 05/29/24 05/29/24 mcg/actuation nasal allergies spray,suspension hydralazine 50 mg tablet 50 mg PO BID 05/29/24 05/29/24 magnesium oxide 400 mg (241.3 mg 400 mg PO DAILY 05/29/24 05/29/24 magnesium) tablet tramadol 50 mg tablet 50 mg PO Q6H PRN Pain, Mild 05/29/24 05/29/24 Previous Rx's ?Medication ?Instructions ?Recorded famotidine 20 mg tablet (Pepcid) 20 mg PO BID #180 tabs 06/10/23 levothyroxine 25 mcg tablet 50 mcg (2 x 25 mcg) PO DAILY #90 08/04/23 tabs lisinopril 40 mg tablet 40 mg PO DAILY #30 tabs 08/31/23 Held on 04/26/24. Instructions: Resume on 04/28/24. left arm sling #1 ea 09/17/23 carvedilol 12.5 mg tablet 12.5 mg PO BID #60 tabs 12/14/23 loratadine 10 mg tablet (Claritin) 10 mg PO DAILY #30 tabs 12/14/23 apixaban 5 mg tablet (Eliquis) 5 mg PO Q12H #60 tabs 12/31/23 escitalopram oxalate 10 mg tablet 10 mg PO DAILY #60 tabs 04/25/24 meclizine 25 mg tablet 25 mg PO TID PRN dizziness #30 tabs 05/07/24 hydrocodone 5 mg-acetaminophen 325 1 tab PO Q4H PRN pain 5 days #30 05/26/24 mg tablet tabs Allergies Allergy/AdvReac Type Severity Reaction Status Date / Time No Known Drug Allergies Allergy Unknown Verified 05/29/24 15:27
[2024-05-29 15:54] LABS: Basophils % 0.1 %; Hematocrit 32.9 % (36-47); Lymphocytes # 0.6 10^3/uL (0.8-4.8); Lymphocytes % 5.5 %; Mean Corpuscular HGB Conc 32.8 g/dL (30-55); Mean Corpuscular Hemoglobin 28.3 pg (27-33); Mean Corpuscular Volume 86.1 fl (85-98); Mean Platelet Volume 9.5 fL (7.4-10.4); Monocytes # 0.5 10^3/uL (0.2-0.9); Monocytes % 4.3 %; Neutrophils # 9.97 10^3/uL (1.8-7.7); Neutrophils % 89.8 %; Nucleated Red Blood Cells % 0 %; Platelet Count 288 10^3/cmm (157-399); Red Blood Count 3.82 10^6/uL (3.85-5.65); Red Cell Distribution Width 13.5 % (12.1-15.1)
[2024-05-29 16:17] LABS: Troponin(5th) Baseline 9 ng/L (0-10)
[2024-05-29 16:21] LABS: Alanine Aminotransferase 7 U/L (0-33); Albumin Level 4.1 g/dL (3.5-5.2); Alkaline Phosphatase 61 U/L (35-105); Anion Gap 19.4 (5-19); Aspartate Amino Transferase 15 U/L (0-32); Blood Urea Nitrogen 14 mg/dL (8-23); C Reactive Protein 35.4 mg/L (0.0-4.9); Calcium 8.9 mg/dL (8.5-10.5); Carbon Dioxide 20 mmol/L (22-29); Chloride 94 mmol/L (98-107); Creatinine Clr Calc Pharmacy 50.3961; Globulin 2.8 g/dL (1.3-4.6); Glomerular Filtration Rate 62.5 mL/min (90-130); Glucose 122 mg/dL (65-115); NT Pro B Type Natriuretic Pept 1531 pg/mL (0-125); Osmolality Calculated 272 mOsm/kg (285-295); Potassium 3.4 mmol/L (3.5-5.1); Sodium 130 mmol/L (136-145); Total Bilirubin 0.3 mg/dL (0.15-1.2); Total Protein 6.9 g/dL (6.6-8.7)
[2024-05-29] MEDS: sodium chloride 0.9% 1,000 ML 999 ML IV (16:23)
[2024-05-29 16:27] LABS: Bacteria Urine None Seen /hpf; Bilirubin Urine Neg (Negative); Blood Urine Neg (Negative); Glucose Urine UA Norm (Normal); Hyaline Casts Urine 0-4 /lpf; Ketones Urine 1+ (Negative); Leukocyte Esterase Urine Negative (Negative); Nitrate Urine Negative (Negative); Protein Urine Neg (Negative); Squamous Epithelial Cell Urine 0-5 /hpf (0-5); Urine Appearance Clear (CLEAR); Urine Color Yellow (Yellow); Urobilinogen Urine Neg (Negative); WBC Urine 0-5 /hpf (0-5); pH Urine 9 (5-7)
[2024-05-29 16:28] VITALS: BP 104/59; PULSE 69; RESP 20; O2SAT 97
[2024-05-29 16:40] LABS: Amphetamines Screen Urine Negative (Negative); Barbiturates Screen Urine Negative (Negative); Benzodiazepines Screen Urine Negative (Negative); Cocaine Screen Urine Negative (Negative); Opiate Screen Urine Positive (Negative); PCP Screen Urine Negative (Negative); THC Screen Urine Positive (Negative)
--- NOTE | 2024-05-29 17:25 | ECG_ITS ---
[facility] Date[facility] 2024-[facility]-29 Pat Name: Trish Rocha Department: Room: Gender: Female Government Affairs Director: : 1955 Requested By: Frida Mariscal Order Number: [id number] Reading MD: Measurements Intervals [place] Rate: 72 P: 84 WA: 141 QRS: 39 QRSD: 92 T: 42 QT: 421 QTc: 461 Interpretive Statements SINUS RHYTHM [email or web address]
[2024-05-29 17:32] VITALS: BP 112/52; PULSE 72; RESP 18; O2SAT 98
[2024-05-29 17:45] LABS: Influenza A NEGATIVE (Negative); Influenza B NEGATIVE (Negative); Respiratory Syncytial Virus Ce NEGATIVE (Negative); SARS-CoV-2 PCR NEGATIVE (Negative)
[2024-05-29 17:58] LABS: Troponin 5 2HR 8.71 ng/L (0-10); Troponin 5 2HR Delta -0.29 ABS# (0-10)
[2024-05-29 18:00] VITALS: BP 104/55; PULSE 74; RESP 16; O2SAT 100
[2024-05-29] MEDS: acetaminophen 1,000 MG/100 ML PIGGYBACK 400 MG IV (19:51)
== END 2024-05-29 20:20 | disposition home or self-care (01) ==
PROVIDERS: Emergency Provider Emergency Medicine; PCP Family Medicine
DX: E86.0 Dehydration (principal); B34.9 Viral infection, unspecified; Z11.52 Encounter for screening for COVID-19; Z79.01 Long term (current) use of anticoagulants; E11.9 Type 2 diabetes mellitus without complications; I11.0 Hypertensive heart disease with heart failure; I50.30 Unspecified diastolic (congestive) heart failure
CPT/HCPCS: 36415; 71045; 80053; 80306; 81001; 83880; 84484; 85025; 86140; 87040; 87637; 93005; 96361; 96374; 99285; J0131; J7030

== ENCOUNTER → 2024-06-06 12:26 | Outpatient (BNVA) | payer MEDICARE, OTHER, SELFPAY | PROVIDERS: PCP Family Medicine; Visit Provider Nurse Practitioner Family | DX: Z09 Encounter for follow-up examination after completed treatment for conditions other than malignant neoplasm (principal); I11.0 Hypertensive heart disease with heart failure; I50.33 Acute on chronic diastolic (congestive) heart failure; R55 Syncope and collapse; E78.5 Hyperlipidemia, unspecified; I35.0 Nonrheumatic aortic (valve) stenosis; E03.9 Hypothyroidism, unspecified; Z87.891 Personal history of nicotine dependence | CPT/HCPCS: 99214 ==

== ENCOUNTER 2024-06-08 08:17 | Outpatient (CLI) | payer MEDICARE, OTHER, SELFPAY ==
--- NOTE | 2024-06-08 09:00 | CT_ITS ---
WS: [id number] Noncontrast CT RIGHT shoulder TECHNIQUE: Noncontrast CT RIGHT shoulder with coronal and sagittal reformatted images. CLINICAL INFORMATION: RIGHT REVERSE TOTAL SHOULDER ARTHROPLASTY COMPARISON: MRI 04/14/2024 DLP: 197.[address] scans at [facility] use at least one of these dose optimization techniques: automated exposure control; mA and/or kV adjustment per patient size (includes targeted exams where dose is matched to clinical indication); or iterative reconstruction. FINDINGS: High-grade tears with retraction of the supraspinatus and infraspinatus described on the recent MRI. Atrophy of the rotator cuff. Joint effusion with intra-articular loose bodies. Advanced arthritis of the AC joint and glenohumeral joint with subchondral cystic change and sclerosis. Subchondral cystic change and sclerosis involving the greater tuberosity, humeral head, and glenoid. No acute fractures. Dystrophic calcification/loose body near the rotator interval. RIGHT lung is well aerated. Aortic calcification. CT/CT shoulder RT wo con* [id number] IMPRESSION: 1. Advanced degenerative arthritis the AC joint and glenohumeral joint with hubbard bchondral cystic change and sclerosis described above.
== END 2024-06-08 08:18 | disposition home or self-care (01) ==
LOC: RAD 08:19
PROVIDERS: PCP Family Medicine; Visit Provider Student in an Organized Health Care Education/Training Program
DX: M19.011 Primary osteoarthritis, right shoulder (principal); M75.101 Unspecified rotator cuff tear or rupture of right shoulder, not specified as traumatic; M62.511 Muscle wasting and atrophy, not elsewhere classified, right shoulder; M25.411 Effusion, right shoulder; R93.7 Abnormal findings on diagnostic imaging of other parts of musculoskeletal system; I70.0 Atherosclerosis of aorta
CPT/HCPCS: 73200

== ENCOUNTER 2024-06-13 11:33 | Outpatient (CLI) | payer MEDICARE, OTHER, SELFPAY ==
[2024-06-13 12:28] LABS: Add Urine Microscopic? NO
[2024-06-13 12:32] LABS: Basophils % 0.4 %; Eosinophils # 0.1 10^3/uL (0.0-0.8); Eosinophils % 1.1 %; Lymphocytes # 1.7 10^3/uL (0.8-4.8); Lymphocytes % 23.3 %; Mean Corpuscular Hemoglobin 28.4 pg (27-33); Mean Corpuscular Volume 88.8 fl (85-98); Mean Platelet Volume 8.4 fL (7.4-10.4); Monocytes # 0.7 10^3/uL (0.2-0.9); Monocytes % 9.7 %; Neutrophils % 65.2 %; Nucleated Red Blood Cells % 0 %; Platelet Count 433 10^3/cmm (157-399); Red Blood Count 3.38 10^6/uL (3.85-5.65); Red Cell Distribution Width 14.5 % (12.1-15.1); White Blood Count 7.35 10^3/uL (3.29-11.43)
[2024-06-13 12:38] LABS: Bilirubin Urine Neg (Negative); Blood Urine Neg (Negative); Glucose Urine UA Norm (Normal); Ketones Urine Negative (Negative); Leukocyte Esterase Urine Negative (Negative); Nitrate Urine Negative (Negative); Protein Urine Neg (Negative); Urine Appearance Clear (CLEAR); Urine Color Yellow (Yellow); Urobilinogen Urine Norm (Negative); pH Urine 8 (5-7)
[2024-06-13 12:39] LABS: Charge for UA Resulting for Rev
[2024-06-13 12:57] LABS: Alanine Aminotransferase 7 U/L (0-33); Albumin Level 3.9 g/dL (3.5-5.2); Alkaline Phosphatase 50 U/L (35-105); Anion Gap 16.3 (5-19); Aspartate Amino Transferase 13 U/L (0-32); Blood Urea Nitrogen 16 mg/dL (8-23); Calcium 9.1 mg/dL (8.5-10.5); Carbon Dioxide 24 mmol/L (22-29); Chloride 102 mmol/L (98-107); Globulin 3.1 g/dL (1.3-4.6); Glomerular Filtration Rate 99.7 mL/min (90-130); Glucose 115 mg/dL (65-115); Osmolality Calculated 288 mOsm/kg (285-295); Potassium 4.3 mmol/L (3.5-5.1); Sodium 138 mmol/L (136-145); Total Bilirubin 0.2 mg/dL (0.15-1.2)
== END 2024-06-13 11:34 | disposition home or self-care (01) ==
PROVIDERS: PCP Family Medicine; Visit Provider Student in an Organized Health Care Education/Training Program
DX: Z01.818 Encounter for other preprocedural examination (principal)
CPT/HCPCS: 36415; 80053; 81003; 85025

== ENCOUNTER 2024-06-23 14:25 | Inpatient (IN) | payer MEDICARE, OTHER, SELFPAY ==
[2024-06-23] VITALS (22 sets, daily range): BP systolic 90–152; BP diastolic 40–83; PULSE 59–92; RESP 13–28; TEMP 36.1–37.1; O2SAT 90–99; BMI 25.3
[2024-06-23] MEDS: sodium chloride 0.9% 1,000 ML 30 ML IV (06:22)
[2024-06-23] MEDS: ketorolac 30 mg/mL INJ IVP (06:22)
[2024-06-23] MEDS: scopolamine 1 mg PATCH 1 PATCH TRANSDERMA (06:23)
--- NOTE | 2024-06-23 06:23 | ANES.PREANE2 ---
Pre-Anesthetic Assessment Height/Weight: Height 5 ft 1 in Weight 134 lb Temp Pulse Resp BP Pulse Ox O2 Del Method 98.4 F 74 18 114/60 98 Room Air 06/23/24 06:04 06/23/24 06:04 06/23/24 06:04 06/23/24 06:04 06/23/24 06:04 06/23/24 06:04 Preop Diagnosis: Rotator cuff tear Operation Date: 06/23/24 07:00 Proposed Procedures p Total Reverse Shoulder Arthroplasty(Right) - Jayjay Saldivar, DO Was Beta Crystal taken within 24 hours: Yes Was Clonidine taken within 24 hours: N/A Last intake: Intake Last Liquid Date 06/22/24 Last Liquid Time 23:00 Last Solid Date 06/22/24 Last Solid Time 23:00 Social No alcohol and No tobacco Exam alert, oriented x 3, clear to auscultation bilaterally and regular rate & rhythm Airway Submandibular: within normal limits Cervical ROM: within normal limits Mallampati: Class III Dentition: false Anesthetic Plan ASA status: 3 Anesthesia: General Other: No prior issues with anesthesia NPO since yesterday evening History of hypertension on lisinopril, carvedilol and nifedipine Prior CVA history on chronic Eliquis. Last taken Patient also has a history of A-fib. Most recent EKG showing sinus rhythm Patient has a history of bipolar/anxiety disorder Echo performed 04/21/2024 showing EF 60% Labs reviewed and acceptable for procedure Plan for General anesthesia with pre-op PNB Medications/Allergies Home Medications ?Medication ?Instructions ?Recorded ?Confirmed ?Last Taken ?Type levothyroxine 25 mcg tablet 50 mcg (2 x 25 mcg) PO DAILY #90 08/04/23 06/22/24 06/22/24 Rx tabs lisinopril 40 mg tablet 40 mg PO DAILY #30 tabs 08/31/23 06/22/24 06/22/24 Rx Held on 04/26/24. Instructions: Resume on 04/28/24. left arm sling #1 ea 09/17/23 06/06/24 Unknown Rx atorvastatin 80 mg tablet 80 mg PO BEDTIME 10/23/23 06/22/24 06/21/24 History nifedipine 60 mg tablet,extended 60 mg PO DAILY 10/23/23 06/22/24 06/22/24 History release 24 hr carvedilol 12.5 mg tablet 12.5 mg PO BID #60 tabs 12/14/23 06/22/24 06/22/24 Rx loratadine 10 mg tablet (Claritin) 10 mg PO DAILY #30 tabs 12/14/23 06/22/24 06/22/24 Rx apixaban 5 mg tablet (Eliquis) 5 mg PO Q12H #60 tabs 12/31/23 06/22/24 06/20/24 Rx aspirin 81 mg tablet,delayed 81 mg PO QAM 01/15/24 06/22/24 06/15/24 History release ferrous sulfate 325 mg (65 mg 325 mg PO DAILY 01/15/24 06/22/24 06/22/24 History iron) tablet escitalopram oxalate 10 mg tablet 10 mg PO DAILY #60 tabs 04/25/24 06/22/24 06/22/24 Rx fluticasone propionate 50 2 spray intranasal DAILY PRN 05/29/24 06/22/24 Unknown History mcg/actuation nasal allergies spray,suspension hydralazine 50 mg tablet 50 mg PO BID 05/29/24 06/22/24 06/22/24 History magnesium oxide 400 mg (241.3 mg 400 mg PO BEDTIME 05/29/24 06/22/24 06/21/24 History magnesium) tablet famotidine 20 mg tablet (Pepcid) 20 mg PO QPM 06/22/24 06/22/24 06/21/24 History Allergies Allergy/AdvReac Type Severity Reaction Status Date / Time No Known Drug Allergies Allergy Unknown Verified 06/22/24 09:15 [facility] Anesthesia Medical History Anemia Hypothyroidism Atrial fibrillation with RVR Hypotension Postoperative anemia Atrial fibrillation Right-sided lacunar infarction Severe pulmonary hypertension Diastolic heart failure On Coumadin for atrial fibrillation Elevated d-dimer Elevated troponin Dyspnea Hyponatremia Atrial fibrillation with RVR Dehydration Hyponatremia Altered mental status Subacromial impingement of left shoulder Rotator cuff tear, left Bipolar 2 disorder Anxiety Diabetes Hypercholesterolemia Syncope Urgency of urination Hypertension Surgical History S/P shoulder surgery Hx of section x 3 Hx of bilateral cataract extraction H/O gastric bypass Family History Grandmother Cancer Hyperlipidemia Hypertension Mother Hypertension CAD (coronary artery disease) unknown age of onset Denies family history of Diabetes Clotting disorder Dementia Chronic kidney disease (CKD) Suicide Anesthesia complication Bleeding disorder Lung disease Stroke Social History Smoking and tobacco/nicotine status: never used tobacco/nicotine Alcohol intake: never Substance/Drug Use: never Marital status: Data Anesthesia Cardiac Studies: Echocardiogram 04/25/24 Echocardiogram Limited Views 11/15/23 Sestamibi Stress Test (Cardiology) 11/05/22 Cardiac Event Monitor 05/03/24
[2024-06-23] MEDS: acetaminophen 1,000 MG/100 ML PIGGYBACK 400 MG IV (06:27)
--- NOTE | 2024-06-23 06:48 | W.PM.OPSFHP ---
Same Day Surgery H&P Indication for Procedure/HPI DATE OF PROCEDURE: June 23, 2024 CHIEF COMPLAINT/INDICATIONFOR SURGICAL PROCEDURE: Right shoulder chronic rotator cuff arthropathy with glenohumeral joint arthritis PREOP DIAGNOSIS: Right shoulder chronic rotator cuff arthropathy with glenohumeral joint art PLANNED PROCEDURE: Operation Date: 06/23/24 07:00 Proposed Procedures p Total Reverse Shoulder Arthroplasty(Right) - Jayjay Saldivar, DO Medications/Allergies* Home Medications ?Medication ?Instructions ?Recorded ?Confirmed ?Type atorvastatin 80 mg tablet 80 mg PO BEDTIME 10/23/23 06/22/24 History nifedipine 60 mg tablet,extended 60 mg PO DAILY 10/23/23 06/22/24 History release 24 hr aspirin 81 mg tablet,delayed 81 mg PO QAM 01/15/24 06/22/24 History release ferrous sulfate 325 mg (65 mg 325 mg PO DAILY 01/15/24 06/22/24 History iron) tablet fluticasone propionate 50 2 spray intranasal DAILY PRN 05/29/24 06/22/24 History mcg/actuation nasal allergies spray,suspension hydralazine 50 mg tablet 50 mg PO BID 05/29/24 06/22/24 History magnesium oxide 400 mg (241.3 mg 400 mg PO BEDTIME 05/29/24 06/22/24 History magnesium) tablet famotidine 20 mg tablet (Pepcid) 20 mg PO QPM 06/22/24 06/22/24 History Allergies/Adverse Reactions Allergy/AdvReac Type Severity Reaction Status Date / Time No Known Drug Allergies Allergy Unknown Verified 06/22/24 09:15 Current Medications: Generic Name Dose Route Start Last Admin Trade Name Freq PRN Reason Stop Dose Admin Sodium Chloride 1,000 mls @ 30 mls/hr 06/23/24 06:00 06/23/24 06:22 Sodium Chloride 0.9% IV 06/24/24 05:59 30 mls/hr .Q24H KARLA Administration Pertinent History/Comorbid Conditions* Medical History (Updated 06/06/24 @ 00:00 by FRANCESCA Martinez) Anemia Hypothyroidism Atrial fibrillation with RVR Hypotension Postoperative anemia Atrial fibrillation Right-sided lacunar infarction Severe pulmonary hypertension Diastolic heart failure On Coumadin for atrial fibrillation Elevated d-dimer Elevated troponin Dyspnea Hyponatremia Atrial fibrillation with RVR Dehydration Hyponatremia Altered mental status Subacromial impingement of left shoulder Rotator cuff tear, left Bipolar 2 disorder Anxiety Diabetes Hypercholesterolemia Syncope Urgency of urination Hypertension Surgical History (Updated 04/27/24 @ 00:01 by FRANCESCA Martinez) S/P shoulder surgery Hx of section x 3 Hx of bilateral cataract extraction H/O gastric bypass Family History (Updated 07/30/21 @ 14:24 by Nydia Forde RN) CAD (coronary artery disease) Mother unknown age of onset Hyperlipidemia Grandmother Cancer Grandmother Hypertension Grandmother Mother Denies family history of Diabetes Clotting disorder Dementia Chronic kidney disease (CKD) Suicide Anesthesia complication Bleeding disorder Lung disease Stroke Social History Smoking and tobacco/nicotine status: never used tobacco/nicotine Alcohol intake: never Substance/Drug Use: never Marital status: Pertinent Exam Findings alert, oriented x 3, operative site marked and procedure specific exam findings Please refer to detailed orthopedic examination on 05/18/2024 listed below: Right Shoulder Exam: ROM 45 degrees actively, passively greater than 170 degrees Weakness 3+/4 out of 5 [place]: Positive Jobes: Positive [place] Impingement: Positive Speeds Test: Positive Crossover/Neers test: Positive tenderness palpation over the AC joint Recommendations Risks and benefits of procedure reviewed and Patient/family agree to proceed Surgery/Procedure today Other Plans: Plan to proceed to the OR today for a right reverse total shoulder arthroplasty. Patient is cleared the preoperative clearance process no change in overall health since her last visit. She is ready proceed with surgical intervention. Patient understands the ins and outs procedure the risk benefits complication alternatives surgery and through shared decision-making elects proceed with surgical invention. All questions answered at this time. Reviewed and signed consent with patient this morning. at bedside. Coding Level of Care Code Acute Code for Mayela Jacobsen
[2024-06-23] MEDS: ceFAZolin 2,000 MG in sodium chloride 0.9% (plus) 50 ML 100 MG IV ×3 (07:00→21:59)
[2024-06-23] MEDS: tranexamic acid 1,000 mg/10mL SDV 1000 MG IV (07:25)
--- NOTE | 2024-06-23 08:12 | ANES.PROC ---
Anesthesia Procedures Procedure/Date: 06/23/24 Nerve Block ^: Nerve Block 1: Main Anesthesia: other Time Out Performed: Yes Consent: requested by attending/covering physician and from patient Nerve block location: interscalene Anesthesia monitors applied: pulse oximetry, EKG, BP cuff and oxygen Nerve block position: supine Anesthetic Used: ropivicaine 0.5% Amount of anesthesia used (mL): 30 Ultrasound used to: recognize landmarks Nerve Stimulator Used?: Yes Interscalene/Femoral BLK: other needle (pjunk 4inch) Injection: neg aspiration of heme Patient Tolerated Procedure: well Complications: none Additional Comments: Decadron 4 mg added to block
[2024-06-23 08:38] LABS: Basophils % 0.3 %; Eosinophils # 0.2 10^3/uL (0.0-0.8); Hematocrit 32.7 % (36-47); Lymphocytes # 2.8 10^3/uL (0.8-4.8); Lymphocytes % 40.5 %; Mean Corpuscular HGB Conc 31.5 g/dL (30-55); Mean Corpuscular Hemoglobin 28.6 pg (27-33); Mean Corpuscular Volume 90.8 fl (85-98); Mean Platelet Volume 9.8 fL (7.4-10.4); Monocytes # 0.8 10^3/uL (0.2-0.9); Monocytes % 10.8 %; Neutrophils # 3.12 10^3/uL (1.8-7.7); Neutrophils % 45.1 %; Nucleated Red Blood Cells % 0 %; Platelet Count 459 10^3/cmm (157-399); Red Cell Distribution Width 15.3 % (12.1-15.1); White Blood Count 6.92 10^3/uL (3.29-11.43)
[2024-06-23 08:55] LABS: Anion Gap 14.3 (5-19); Blood Urea Nitrogen 18 mg/dL (8-23); Calcium 9.3 mg/dL (8.5-10.5); Carbon Dioxide 24 mmol/L (22-29); Chloride 102 mmol/L (98-107); Creatinine Clr Calc Pharmacy 57.0864; Glomerular Filtration Rate 83.5 mL/min (90-130); Glucose 109 mg/dL (65-115); Osmolality Calculated 284 mOsm/kg (285-295); Potassium 4.3 mmol/L (3.5-5.1); Sodium 136 mmol/L (136-145)
[2024-06-23] MEDS: VANCOMYCIN ADD-Vantage 1,000 MG VIAL 1000 MG XX (09:40)
--- NOTE | 2024-06-23 10:17 | XR_ITS ---
WS: [id number] Exam: XR shoulder RT min 2V* [id number] Date/Time of Exam: 06/23/2024 10:17 AM Reason For Exam: s/p R Reverse TSA A reverse RIGHT shoulder prosthesis is noted. Position is satisfactory. Soft tissues are unremarkable. No hardware complication. XR/XR shoulder RT min 2V* [id number] IMPRESSION: 1. Intact RIGHT reverse shoulder prosthesis.
--- NOTE | 2024-06-23 10:18 | P.OP_ITS ---
Operative Report Date of procedure: June 23, 2024 Surgeon: Jayjay Saldivar DO Ice Cream Chef: Festus Saldivar PA-C: PA was necessary for assistance in this case with shoulder positioning to execute the procedure, assistance with instrumentation, as well as prosthesis implantation, assist with wound closure and dressing application. Procedure: Preop Diagnosis?Right shoulder shoulder degenerative joint disease, rotator cuff arthropathy Post-op diagnosis: same Post-op diagnosis:? Same Procedure done:? Right?reverse?total?shoulder arthroplasty Implants:? [employer]?reverse?total?shoulder arthroplasty comprehensive system Size 10 mm mini humeral stem 36 mm glenosphere diameter standard offset (B) Glenosphere mini baseplate with small augment baseplate Central screw?6.5 mm by 30 mm Fixed locking screws (25 mm, 20 mm, 15 mm, 15 mm) Standard mini humeral tray with +5 mm polyethylene thickness Surgeon:? Jayjay Saldivar DO Estimated blood loss:? 125 mL IV fluids:? 1600 mL Urine output:? See anesthesia record Complications:? None Findings:? See operative report narrative Condition: stable Disposition: floor Brief History:? Pt is a pleasant 68-year-old female who is worked up in the outpatient setting for chronic Right shoulder arthrtitis with rotator cuff arthropathy.? Pt has failed conservative treatment and? was interested in further treatment options we talked about? continued nonoperative versus operative intervention given pt age, arthritis and rotator cuff tear on MRI would recommend a Right?reverse?total?shoulder arthroplasty.? Pt has been medically optimized and cleared the preoperative clearance process. Through shared decision-making pt like to proceed with a Right?reverse?total?shoulder arthroplasty.? All questions been answered at this time once again pt understands the risk benefits complication alternatives the treatment option understanding risk of surgery pt agrees to proceed.? All questions answered. Procedure:? Patient seen evaluated in the preoperative holding area.? Consent was reviewed and signed with patient once again detailed out the ins and outs of the procedure.? Correct extremity was marked.? Final questions answered.? Patient was seen evaluated by Anesthesia Department once cleared for surgery pt was taken back to the operative suite.? pt was placed in supine position all bony prominences well-padded patient was appropriate secured to the bed pt underwent anesthesia per the anesthesia department once appropriately anesthetized he was then subsequently set into a lazy beachchair position utilizing our standard OR table.? Once we confirmed appropriate positioning we then subsequently prepped and draped the Right upper extremity in standard orthopedic fashion.? Final timeout performed.? Patient received appropriate preoperative antibiotics. Standard deltopectoral approach was then made just lateral to the coracoid.? I utilized electrocautery to maintain exact hemostasis throughout my dissection.? I subsequently identified the cephalic vein dissected this out carefully and this was taken medially with Cobell retractor and I entered the deltopectoral interval.? Next I released the clavipectoral fascia. At this point in time patient already had a ruptured long head of the bicep tendon that was already recoiled distal to the incision site. This was left alone I subsequently identified the intertubercular groove and continued my dissection. Of note patient had significant attenuation of subscapularis tendon as well as tearing of rotator cuff.? Also patient had complete tear of the supra and infraspinatus rotator cuff tendons. I then subsequently performed a subscapularis remanent peel off of the lesser tuberosity this was tagged with 0 Vicryl suture and u tilized for manipulation throughout the case.? I then subsequently performed a complete release in standard fashion with care to stay directly onto bone and protecting axillary nerve throughout the case.? Once standard residual release was performed I then protected the entirety of the humeral head and subsequently began with my humeral stem prep. Canal finder was used just off the articular margin and canal centralizer was satisfactory.? I then subsequently broached up to appropriate depth and canal fit which was determined to be 10.? 10 was left in and subsequently brought in plan to guide of 30 degrees retroversion was then placed with my cutting guide pinned into appropriate position and making sure my rotation and version was appropriate once satisfactory and pinned in the place the intramedullary canal reamer was then subsequently removed and an oscillating saw was then used to perform my humeral head resection.? This was then subsequently removed.? I then sequentially broached up to appropriate size which was a size 10 mm humeral stem with care to once again maintained my appropriate version.? Once I was satisfied with this I then placed the metal And the left the stem in place to maintain appropriate integrity of the humeral head while performing work on the glenoid.?? Next I then placed appropriate retraction posterior inferior posterior superior as well as anterior.? I had excellent visualization of the glenoid at this point time jose l my appropriate position.? I utilized electrocautery and remove the entirety of the labrum so I had full visualization of the glenoid.? I then utilized the [employer] comprehensive targeting guide within 10 degree tilt.? Central guidepin was then inserted and confirmed to be in appropriate position confirmed with preop CT plan. once satisfied with this placement I then introduced my reamer. At this point in time I reamed just over 50% and then utilized a curette to scrape the superior portion at this point time it was deemed this would be satisfactory for a small augment which would have the sit flush against the superior border of the glenoid. Once again I did utilize a curette and a glenoid prep scraper from [employer] set to roughen up the border for porous bony ingrowth. I then opened up the small augmented glenoid baseplate this was impacted in appropriate position and rotation next I then subsequently drilled and measured my central screw and placed in appropriate length 30 mm central screw.? This had excellent fixation and purchase.? This was flushed and had bony contact on all surfaces. At this point time I are removed any small residual osteophytes inferiorly and at this point then I subsequently drilled measured and placed 4 locking screws circumferentially around the mini baseplate size screws were 25 mm, 20 mm, 15 mm, 15 mm.? These all had excellent fixation and I satisfied with baseplate .? Next I then opened up our glenosphere 36 diameter set this to the appropriate standard offset C giving us roughly 1.5 mm of offset inferiorly this was then impacted and had excellent fixation.? Utilize a tonsil, bone hook and by hand to test the Arana taper stability in the glenosphere had appropriate fixation. ?This was then subsequently removed and then I subsequently placed the appropriate trial humeral tray which was trialed with a standard offset onto my trial 10 mm humeral stem this was subsequently reduced.? This initially had some increased play and as a result I trialed up to a +5 mm thickness on the poly and this had excellent stability as well as good range of motion to touch the head as well as touch the back pocket of the hip with good internal and external rotation.? This was determined to be my final implant.? I then subsequently dislocate the shoulder.? I then subsequently removed the trial implantations of the humerus.? Final implants were called and open for of a size 10 mini humeral stem as well as a +5 polyethylene and mini humeral tray.? This was opened and set up appropriately on the back table.? I then subsequently impacted the mini humeral stem size 10 and appropriate position which was exact as our trial implantation once again maintaining our appropriate version that was preset and marked and then next I subsequently dried the trunnion and impacted the appropriate humeral tray with +5 mm thickness poly.? This was then subsequently reduced and had excellent fixation range of motion and stability with appropriate tensioning.? No evidence of instability was noted.? I then subsequently opened Pulsavac and thoroughly irrigated the incision with 3 L of normal saline.? I then subsequently placed a gram of vancomycin powder for infection prophylaxis.? I then subsequently closed the subcutaneous layer with 0 and 2-0 Vicryl suture a running 3-0 STRATAFIX was then performed of the skin edges and then reinforce the skin edges with Prineo.? A DORIAN dressing was then applied.? Sling applied. Patient was then awakened from anesthesia and taken to PACU in stable condition.? Patient tolerated procedure without any complications. Disposition: Patient taken to PACU in stable condition recovering well will be admitted to the floor postoperatively internal medicine will be on board for medical management.? Patient will be nonweightbearing to the Right shoulder.? Sling on in place.? Patient will receive appropriate postoperative pain medi cation DVT prophylaxis on the floor.? Will receive appropriate discharge instructions as well as pain medication DVT prophylaxis.? We will work with PT/OT.? Patient to follow-up with me in the office in 2 weeks.
--- NOTE | 2024-06-23 10:25 | W.PM.BPON ---
Date of Procedure: [June 23, 2024] Surgeon: [Dr. Saldivar DO] Experimental Display Builder(s): [Festus Saldivar PA-C] Procedure(s) performed: [Right Reverse Total Shoulder arthroplasty] Findings of the procedure(s): [Right glenohumeral degenerative joint disease. Procedure went well and is planned] Estimated blood loss: [125 mL] Specimen(s) removed: [N/A] Post-operative diagnosis: [Right glenohumeral degenerative joint disease]
--- NOTE | 2024-06-23 10:27 | PM.PACU ---
PACU note Narrative: Patient is 68-year-old female just underwent a right reverse total shoulder arthroplasty. Patient transferred to PACU in stable condition. Pain is well controlled. shoulder Dressing on , dry and in place. Patient's operative arm is in a shoulder immobilizer. Patient is awake and alert and able to respond to my questions accordingly. Patient's fingers are warm with good perfusion. Normal cap refill under 2 seconds. Radial pulse 2+. Patient can wiggle fingers. Unable to assess further range of motion in arm due to sling. Unable to assess sensation due to residual block. Exam: awake Disposition: admitted
--- NOTE | 2024-06-23 11:08 | ANE.PACU2 ---
Inpatient post-anesthesia follow up: Airway intact: Yes Vital signs: Temperature 98.8 F Pulse Rate 66 Respiratory Rate 16 Blood Pressure 117/50 Pulse Oximetry 98 Oxygen Delivery Me thod Room Air Oxygen Flow Rate 4 Fraction of Inspir ed Oxygen Hydration adequate: Yes Nausea and vomiting: No Pain level: 1 Mental status: Baseline
[2024-06-23] MEDS: TRAMadol 50 mg Tablet PO (12:11)
[2024-06-23] MEDS: chlorhexidine gluconate 0.12% Btl 473 mL 30 ML MUCOUS MEM ×2 (15:10→17:20)
[2024-06-23] MEDS: acetaminophen 500 mg Tablet 1000 MG PO ×2 (15:11→21:59)
[2024-06-23] MEDS: lactated ringers 1,000 ML 75 ML IV (15:21)
--- NOTE | 2024-06-23 15:53 | PM.CONSULT ---
Providers/Reason For Consult Consulting Physician/Specialty*: Dr Casandra Garcia Reason for Consult*: Medical management Requesting Physician: Dr Saldivar Attending Physician: Jayjay Saldivar DO Primary Care Provider: Obey Rose MD History of Present Illness History of Present Illness Trish Rocha is a 68 year old female with past medical history of hyperlipidemia, atrial fibrillation on Eliquis, severe pulmonary hypertension, diastolic heart failure, bipolar disorder, anxiety, diabetes, hypertension admitted for Right shoulder chronic rotator cuff arthropathy with glenohumeral joint arthritis. She is s/p total reverse shoulder arthroplasty. Medicine consulted for medical management. Denies any excessive pain. No new complaints noted. Review of Systems General: Reports: 10 or more systems reviewed and unremarkable except in HPI and below Medications/Allergies Home Medications ?Medication ?Instructions ?Recorded ?Confirmed ?Last Taken ?Type levothyroxine 25 mcg tablet 50 mcg (2 x 25 mcg) PO DAILY #90 08/04/23 06/22/24 06/22/24 Rx tabs lisinopril 40 mg tablet 40 mg PO DAILY #30 tabs 08/31/23 06/22/24 06/22/24 Rx Held on 04/26/24. Instructions: Resume on 04/28/24. left arm sling #1 ea 09/17/23 06/23/24 Unknown Rx atorvastatin 80 mg tablet 80 mg PO BEDTIME 10/23/23 06/22/24 06/21/24 History nifedipine 60 mg tablet,extended 60 mg PO DAILY 10/23/23 06/22/24 06/22/24 History release 24 hr carvedilol 12.5 mg tablet 12.5 mg PO BID #60 tabs 12/14/23 06/22/24 06/22/24 Rx loratadine 10 mg tablet (Claritin) 10 mg PO DAILY #30 tabs 12/14/23 06/22/24 06/22/24 Rx apixaban 5 mg tablet (Eliquis) 5 mg PO Q12H #60 tabs 12/31/23 06/22/24 06/20/24 Rx aspirin 81 mg tablet,delayed 81 mg PO QAM 01/15/24 06/22/24 06/15/24 History release ferrous sulfate 325 mg (65 mg 325 mg PO DAILY 01/15/24 06/22/24 06/22/24 History iron) tablet escitalopram oxalate 10 mg tablet 10 mg PO DAILY #60 tabs 04/25/24 06/22/24 06/22/24 Rx fluticasone propionate 50 2 spray intranasal DAILY PRN 05/29/24 06/22/24 Unknown History mcg/actuation nasal allergies spray,suspension hydralazine 50 mg tablet 50 mg PO BID 05/29/24 06/22/24 06/22/24 History magnesium oxide 400 mg (241.3 mg 400 mg PO BEDTIME 05/29/24 06/22/24 06/21/24 History magnesium) tablet famotidine 20 mg tablet (Pepcid) 20 mg PO QPM 06/22/24 06/22/24 06/21/24 History Allergies Allergy/AdvReac Type Severity Reaction Status Date / Time No Known Drug Allergies Allergy Unknown Verified 06/22/24 09:15 Current Medications Generic Name Dose Route Start Last Admin Trade Name Freq PRN Reason Stop Dose Admin Acetaminophen 1,000 mg 06/23/24 15:00 06/23/24 15:11 Acetaminophen 500 Mg Tablet PO 1,000 mg Q8H KARLA Administration Chlorhexidine Gluconate 30 ml 06/23/24 14:48 06/23/24 15:10 Chlorhexidine Gluconate 0.12% Btl 473 Ml MUCOUS MEM 30 ml QID KARLA Administration Cefazolin Sodium 2,000 mg/ 50 mls @ 100 mls/hr 06/23/24 15:00 06/23/24 15:46 Sodium Chloride IV 06/24/24 07:29 Infused Q8H KARLA Infusion Protocol Lactated Ringer's 1,000 mls @ 75 mls/hr 06/23/24 14:48 06/23/24 15:21 Lactated Ringers IV 75 mls/hr .[id number] KARLA Administration Tramadol HCl 50 mg 06/23/24 11:53 06/23/24 12:11 Tramadol 50 Mg Tablet PO 50 mg Q4H PRN Administration MILD PAIN PFSH Acute PFSH: Medical History Anemia Hypothyroidism Atrial fibrillation with RVR Hypotension Postoperative anemia Atrial fibrillation Right-sided lacunar infarction Severe pulmonary hypertension Diastolic heart failure On Coumadin for atrial fibrillation Elevated d-dimer Elevated troponin Dyspnea Hyponatremia Atrial fibrillation with RVR Dehydration Hyponatremia Altered mental status Subacromial impingement of left shoulder Rotator cuff tear, left Bipolar 2 disorder Anxiety Diabetes Hypercholesterolemia Syncope Urgency of urination Hypertension Surgical History S/P shoulder surgery Hx of section x 3 Hx of bilateral cataract extraction H/O gastric bypass Family History Grandmother Cancer Hyperlipidemia Hypertension Mother Hypertension CAD (coronary artery disease) unknown age of onset Denies family history of Diabetes Clotting disorder Dementia Chronic kidney disease (CKD) Suicide Anesthesia complication Bleeding disorder Lung disease Stroke Social History Smoking and tobacco/nicotine status: never used tobacco/nicotine Alcohol intake: never Substance/Drug Use: never Marital status: Vitals/I&O/Wt Last Vital Signs Temp 97.8 F 06/23/24 15:07 Pulse 76 06/23/24 15:07 Resp 19 H 06/23/24 15:07 BP 147/72 06/23/24 15:07 Pulse Ox 98 06/23/24 15:07 O2 Del Method Room Air 06/23/24 15:32 O2 Flow Rate 4 06/23/24 06:49 06/23/24 06/23/24 06/23/24 06:59 14:59 22:59 Intake Total 1850 / 1850 50 / 1900 Output Total 125 / 125 Balance 1725 / 1725 50 / 1775 Weight last 48 hrs Weight 60.781 kg Weight 60.781 kg Physical Exam Narrative: She is AAOx3 chest clear to ascultation CVS normal heart sounds, irregular rhythm, systolic murmur present Abdomen soft NT ND normal bowel sounds Ext no edema noted, Right arm in shoulder sling. dressing present over right shoulder. Data 06/23/24 06:20 06/23/24 06:20 A&P Assessment and plan (1) Rotator cuff arthropathy of right shoulder: (2) Anemia: (3) CVA (cerebral vascular accident): (4) Hypertension: (5) Hypothyroidism: (6) Atrial fibrillation with RVR: (7) Status post reverse arthroplasty of left shoulder: (8) Diastolic heart failure: Qualifiers: Heart failure chronicity: unspecified Qualified Code(s): I50.30 - Unspecified diastolic (congestive) heart failure (9) Hypertension: Qualifiers: Hypertension type: unspecified Qualified Code(s): I10 - Essential (primary) hypertension (10) Hypercholesterolemia: Crystal Rocha is a 68 year old female with past medical history of hyperlipidemia, atrial fibrillation on Eliquis, severe pulmonary hypertension, diastolic heart failure, bipolar disorder, anxiety, diabetes, hypertension admitted for Right shoulder chronic rotator cuff arthropathy with glenohumeral joint arthritis. She is s/p total reverse shoulder arthroplasty. Medicine consulted for medical management. Hypertension-stable.Can resume hydralazine, nefidipine and lisinopril in am Type 2 diabetes mellitus-Stable. will monitor POC. Atrial fibrillation-rate controlled. resume eliquis as per ortho recommendations. Hyperlipidemia-continue atorvastatin chronic diastolic heart failure-continue aspirin and coreg Hypothyroidism-Resume levothyroxine mcg Anxiety-continue escitalopram. Will continue to follow. PDMP PDMP Reviewed: Not Reviewed Consult Attestations Medical Necessity Statement: She needs continued hospitalization for postop care as per Ortho team Time Spent in Patient Care: 35minutes Coding Level of Care Code Acute Code for Chg Fwd Diagnoses Rotator cuff arthropathy of right shoulder M12.811 Anemia D64.9 CVA (cerebral vascular accident) I63.9 Hypertension I10 Hypothyroidism E03.9 Atrial fibrillation with RVR I48.91 Status post reverse arthroplasty of left shoulder Z96.612 Diastolic heart failure, unspecified HF chronicity I50.30 Heart failure chronicity: unspecified Hypercholesterolemia E78.00 Time Spent (min) 35
[2024-06-23] MEDS: calcium carb-vit d 600mg/400unit 1 Tablet 1 EACH PO (17:19)
[2024-06-23] MEDS: iron polysaccharide complex 150 mg Capsule PO (17:19)
[2024-06-23] MEDS: docusate sodium 100 mg Capsule PO (17:20)
[2024-06-23] MEDS: oxyCODONE 5 mg IR Tab/Cap PO (18:29)
[2024-06-23] MEDS: ketorolac 30 mg/mL INJ 15 MG IVP (18:36)
--- NOTE | 2024-06-23 18:40 | PC.NURSE ---
patient is complaining of severe pain in right shoulder. Nurse gave oxycodone 10mg and toradol 15mg. Nurse also repositioned shoulder on a pillow and put a warm blanket on top of her arm. Patient educated that the toradol would take approximately 30 min to kick in and nurse tried to help the patient breathe through the pain. Nurse also educated patient on not letting her pain get this bad next time. Patient said she was afraid to say anything in front of her for the fear that he would worry too much.
[2024-06-23] MEDS: HYDROmorphone 0.5 MG/0.5 ML INJ IVP ×2 (19:39→21:59)
[2024-06-23] MEDS: hyDROXYzine 25 mg Capsule PO (22:51)
[2024-06-24] VITALS (15 sets, daily range): BP systolic 119–155; BP diastolic 59–78; PULSE 64–91; RESP 16–20; TEMP 36.3–36.9; O2SAT 91–97
[2024-06-24] MEDS: oxyCODONE 5 mg IR Tab/Cap PO ×4 (00:16→21:39)
[2024-06-24] MEDS: HYDROmorphone 0.5 MG/0.5 ML INJ IVP ×6 (01:02→23:27)
[2024-06-24] MEDS: TRAMadol 50 mg Tablet PO (04:07)
[2024-06-24] MEDS: ketorolac 30 mg/mL INJ 15 MG IVP (04:07)
[2024-06-24] MEDS: lactated ringers 1,000 ML 75 ML IV ×2 (04:09→19:40)
[2024-06-24 06:12] LABS: Basophils % 0.1 %; Eosinophils % 0.2 %; Lymphocytes # 2.3 10^3/uL (0.8-4.8); Lymphocytes % 22.3 %; Mean Corpuscular HGB Conc 30.4 g/dL (30-55); Mean Corpuscular Hemoglobin 27.9 pg (27-33); Mean Corpuscular Volume 91.9 fl (85-98); Mean Platelet Volume 9.3 fL (7.4-10.4); Monocytes # 1.5 10^3/uL (0.2-0.9); Monocytes % 14.6 %; Neutrophils % 62.3 %; Nucleated Red Blood Cells % 0 %; Platelet Count 332 10^3/cmm (157-399); Red Blood Count 2.72 10^6/uL (3.85-5.65); Red Cell Distribution Width 15.4 % (12.1-15.1); White Blood Count 10.42 10^3/uL (3.29-11.43)
[2024-06-24] MEDS: acetaminophen 500 mg Tablet 1000 MG PO ×3 (06:23→23:27)
[2024-06-24] MEDS: ceFAZolin 2,000 MG in sodium chloride 0.9% (plus) 50 ML 100 MG IV (06:24)
[2024-06-24 06:35] LABS: Anion Gap 12.5 (5-19); Blood Urea Nitrogen 19 mg/dL (8-23); Calcium 8.4 mg/dL (8.5-10.5); Carbon Dioxide 23 mmol/L (22-29); Chloride 100 mmol/L (98-107); Creatinine Clr Calc Pharmacy 57.1597; Glomerular Filtration Rate 99.7 mL/min (90-130); Glucose 117 mg/dL (65-115); Osmolality Calculated 275 mOsm/kg (285-295); Potassium 4.5 mmol/L (3.5-5.1); Sodium 131 mmol/L (136-145)
[2024-06-24] MEDS: iron polysaccharide complex 150 mg Capsule PO ×2 (09:14→17:09)
[2024-06-24] MEDS: docusate sodium 100 mg Capsule PO ×2 (09:14→17:09)
[2024-06-24] MEDS: calcium carb-vit d 600mg/400unit 1 Tablet 1 EACH PO ×2 (09:14→17:09)
[2024-06-24] MEDS: multivitamin therapeutic Tablet 1 TAB PO (09:14)
--- NOTE | 2024-06-24 13:30 | P.PN_ITS ---
Subjective 2 Subjective: No acute overnight events noted. Patient reports she was not able to sleep last night and was in pain. Medications: Reviewed: Yes Vitals/I&O/Wt Last Vital Signs Temp 98.4 F 06/24/24 12:43 Pulse 76 06/24/24 12:43 Resp 18 06/24/24 12:43 BP 154/71 06/24/24 12:43 Pulse Ox 96 06/24/24 12:43 O2 Del Method Room Air 06/24/24 11:16 O2 Flow Rate 4 06/23/24 06:49 06/23/24 06/24/24 06/24/24 22:59 06:59 14:59 Intake Total 1060 / 2910 1080 / 3990 530 / 530 Balance 1060 / 2785 1080 / 3865 530 / 530 Weight last 48 hrs Weight 60.951 kg Weight 60.781 kg Weight 60.781 kg Physical Exam 2 Narrative: She is AAOx3 chest clear to ascultation CVS normal heart sounds, irregular rhythm, systolic murmur present Abdomen soft NT ND normal bowel sounds Ext no edema noted, Right arm in shoulder sling. dressing present over right shoulder. Data 06/24/24 05:37 06/24/24 05:37 A&P Assessment and plan (1) Rotator cuff arthropathy of right shoulder: (2) Anemia: (3) CVA (cerebral vascular accident): (4) Hypertension: (5) Hypothyroidism: (6) Atrial fibrillation with RVR: (7) Status post reverse arthroplasty of left shoulder: (8) Diastolic heart failure: Qualifiers: Heart failure chronicity: unspecified Qualified Code(s): I50.30 - Unspecified diastolic (congestive) heart failure (9) Hypertension: Qualifiers: Hypertension type: unspecified Qualified Code(s): I10 - Essential (primary) hypertension (10) Hypercholesterolemia: Plan Trish Rocha is a 68 year old female with past medical history of hyperlipidemia, atrial fibrillation on Eliquis, severe pulmonary hypertension, diastolic heart failure, bipolar disorder, anxiety, diabetes, hypertension admitted for Right shoulder chronic rotator cuff arthropathy with glenohumeral joint arthritis. She is s/p total reverse shoulder arthroplasty. Medicine consulted for medical management. Hypertension-stable.Can resume hydralazine, nefidipine and lisinopril in am Type 2 diabetes mellitus-Stable. will monitor POC. Atrial fibrillation-rate controlled. resume eliquis as per ortho recommendations. Hyperlipidemia-continue atorvastatin chronic diastolic heart failure-continue aspirin and coreg Hypothyroidism-Resume levothyroxine mcg Anxiety-continue escitalopram. Will continue to follow. 06/24/24 Hb dropped from 10.3 to 7.6 likely secondary to intraop bleeding. patient was on anticoagulation prior to surgery which was stopped 2 days prior to surgery by PCP. Currently on iv Iron. Will do 1 unit PRBC today. Recheck CBC at 7pm tonight and transfuse 2nd unit if needed. Follow up labs in am. Will add po melatonin 3mg at night for insomnia. Continue to monitor for now. PDMP PDMP Reviewed: Not Reviewed Attestations 2 Medical Necessity Statement*: As per primary team Critical Care Time: 15minutes Coding Level of Care Code Acute Code for Chg Fwd Diagnoses Rotator cuff arthropathy of right shoulder M12.811 Anemia D64.9 CVA (cerebral vascular accident) I63.9 Hypertension I10 Hypothyroidism E03.9 Atrial fibrillation with RVR I48.91 Status post reverse arthroplasty of left shoulder Z96.612 Diastolic heart failure, unspecified HF chronicity I50.30 Heart failure chronicity: unspecified Hypercholesterolemia E78.00 Time Spent (min) 15
[2024-06-24] MEDS: diphenhydrAMINE 25 mg Capsule PO ×2 (16:11→23:27)
--- NOTE | 2024-06-24 16:53 | P.PN_ITS ---
Subjective 2 Subjective: Patient seen and examined midmorning today. Patient having pain but is controlled medication patient's block is worn off. Dressings on in place clean dry and intact maintaining sling at this time. Hemoglobin dropped to 7.6 today will receive PRBC per internal medicine today goals of keeping hemoglobin above 8. At this point time for pain control as well as requiring unit hemoglobin will recommend additional stay overnight. Patient's dressings on in place clean dry and intact. Vitals/I&O/Wt Last Vital Signs Temp 97.5 F L 06/24/24 15:52 Pulse 70 06/24/24 15:52 Resp 18 06/24/24 15:52 BP 135/59 06/24/24 15:52 Pulse Ox 95 06/24/24 15:52 O2 Del Method Room Air 06/24/24 11:16 O2 Flow Rate 4 06/23/24 06:49 06/24/24 06/24/24 06/24/24 06:59 14:59 22:59 Intake Total 1080 / 3990 890 / 890 250 / 1140 Balance 1080 / 3865 890 / 890 250 / 1140 Weight last 48 hrs Weight 134 lb 6 oz Weight 134 lb Weight 134 lb Physical Exam 2 Narrative: Examination right upper extremity: Dressings on in place clean dry and intact patient has rosi dressing on in place with good seal there is only a small focal drop of blood appreciated on the dressing no evidence of significant saturation normal postoperative swelling and ecchymosis about the right shoulder. Patient's currently in sling. She is able to wiggle her fingers able to perform AIN/PIN/radial/ulnar/median nerve function as well as sensations intact light touch distally. Axillary motor and sensory is intact and able to fire rear deltoid while in sling. Radial pulse 2+. Right upper extremity warm well-perfused. Data 06/24/24 05:37 06/24/24 05:37 Xray Ortho: Radiologist's impression: [facility] [place] [address] [place] [address] XRay Report Signed Patient: Trish Rocha Unit #: [id number] : 1955 Age/Sex: 68 / F ADM Date: 06/23/24 Loc: OR Room/Bed: Attending Dr: Jayjay Janna DO Ordering Provider/Ordering MD: Jayjay Saldivar Date of Service: 06/23/24 Procedure(s): XR shoulder RT min 2V* 66589 Accession Number(s): [id number] Report Number: [id number] WS: [id number] Exam: XR shoulder RT min 2V* [id number] Date/Time of Exam: 06/23/2024 10:17 AM Reason For Exam: s/p R Reverse TSA A reverse RIGHT shoulder prosthesis is noted. Position is satisfactory. Soft tissues are unremarkable. No hardware complication. XR/XR shoulder RT min 2V* 32811 IMPRESSION: 1. Intact RIGHT reverse shoulder prosthesis. A&P Assessment and plan (1) Status post reverse total arthroplasty of right shoulder: Plan Resume regular diet Hold anticoagulants today Postop x-rays reviewed stable right reverse total shoulder arthroplasty AM labs reviewed?hemoglobin 7.6 will receive PRBC per internal medicine team today goal to keep in over [address] clean dry and intact Rosi dressing will remain on in place until follow-up, change only if greater than 50% saturated Nonweightbearing to the right upper extremity Strict no active range of motion or passive range of motion of the right upper extremity Pain control PT/OT Understand additional night and will recheck a.m. labs. Goal for possible discharge home with home health care tomorrow. Patient understands and agrees with current plan. All questions answered. PDMP PDMP Reviewed: Not Reviewed Attestations 2 Medical Necessity Statement*: Patient stay additional night status post right reverse total shoulder arthroplasty hemoglobin dropped to 7.8 today will require PRBC as well as continued night stay for pain control and monitor hemoglobin Coding Level of Care Code Acute Code for Chg Fwd Diagnoses Status post reverse total arthroplasty of right shoulder Z96.611 Time Spent (min) 15
[2024-06-24] MEDS: hyDRALAzine 50 mg Tablet PO (17:08)
[2024-06-24] MEDS: carvedilol 12.5 mg Tablet PO (17:09)
[2024-06-24 17:33] LABS: Hematocrit 28.7 % (36-47)
[2024-06-24 19:15] LABS: Basophils % 0.2 %; Eosinophils # 0.2 10^3/uL (0.0-0.8); Eosinophils % 1.7 %; Hematocrit 27.6 % (36-47); Lymphocytes # 2.6 10^3/uL (0.8-4.8); Lymphocytes % 26.4 %; Mean Corpuscular HGB Conc 30.8 g/dL (30-55); Mean Corpuscular Hemoglobin 28.1 pg (27-33); Mean Corpuscular Volume 91.1 fl (85-98); Mean Platelet Volume 9.2 fL (7.4-10.4); Monocytes # 1.2 10^3/uL (0.2-0.9); Monocytes % 12.5 %; Neutrophils # 5.83 10^3/uL (1.8-7.7); Neutrophils % 58.8 %; Nucleated Red Blood Cells % 0 %; Platelet Count 325 10^3/cmm (157-399); Red Blood Count 3.03 10^6/uL (3.85-5.65); Red Cell Distribution Width 15.4 % (12.1-15.1); White Blood Count 9.92 10^3/uL (3.29-11.43)
[2024-06-24] MEDS: atorvastatin 40 mg Tablet 80 MG PO (19:41)
[2024-06-24] MEDS: magnesium oxide 400 mg tablet PO (19:41)
[2024-06-24] MEDS: chlorhexidine gluconate 0.12% Btl 473 mL 30 ML MUCOUS MEM (19:42)
[2024-06-25 03:46] VITALS: BP 120/64; PULSE 76; RESP 16; TEMP 36.9; O2SAT 91
[2024-06-25 03:51] VITALS: RESP 16
[2024-06-25] MEDS: oxyCODONE 5 mg IR Tab/Cap PO ×2 (03:51→11:17)
[2024-06-25] MEDS: diphenhydrAMINE 25 mg Capsule PO ×2 (03:52→08:51)
[2024-06-25 05:09] LABS: Basophils % 0.2 %; Eosinophils # 0.2 10^3/uL (0.0-0.8); Eosinophils % 2.4 %; Lymphocytes # 2.6 10^3/uL (0.8-4.8); Lymphocytes % 25.5 %; Mean Corpuscular HGB Conc 31.5 g/dL (30-55); Mean Corpuscular Hemoglobin 28.4 pg (27-33); Mean Corpuscular Volume 90.3 fl (85-98); Mean Platelet Volume 9.5 fL (7.4-10.4); Monocytes # 1.5 10^3/uL (0.2-0.9); Monocytes % 14.6 %; Neutrophils # 5.71 10^3/uL (1.8-7.7); Nucleated Red Blood Cells % 0 %; Platelet Count 323 10^3/cmm (157-399); Red Blood Count 2.99 10^6/uL (3.85-5.65); Red Cell Distribution Width 15.8 % (12.1-15.1); White Blood Count 10.01 10^3/uL (3.29-11.43)
[2024-06-25] MEDS: HYDROmorphone 0.5 MG/0.5 ML INJ IVP ×2 (05:25→08:42)
[2024-06-25] MEDS: acetaminophen 500 mg Tablet 1000 MG PO (05:26)
[2024-06-25 05:42] LABS: Anion Gap 12.4 (5-19); Blood Urea Nitrogen 16 mg/dL (8-23); Calcium 8.7 mg/dL (8.5-10.5); Carbon Dioxide 24 mmol/L (22-29); Chloride 103 mmol/L (98-107); Creatinine Clr Calc Pharmacy 61.5626; Glomerular Filtration Rate 99.7 mL/min (90-130); Glucose 90 mg/dL (65-115); Osmolality Calculated 281 mOsm/kg (285-295); Potassium 4.4 mmol/L (3.5-5.1); Sodium 135 mmol/L (136-145)
[2024-06-25 07:34] VITALS: BP 143/56; PULSE 74; RESP 18; TEMP 36.6; O2SAT 95
--- NOTE | 2024-06-25 08:03 | PM.DCS ---
Discharge Providers Date of Admission: 06/24/24 20:41 Date of Discharge: June 25, 2024 Attending Provider at Admission: Jayjay Saldivar DO Attending Provider at Discharge: Casandra Garcia MD Consults: Hospitalist Dr. Garcia Primary Care Provider: Obey Rose MD Diagnoses at Discharge Discharge Diagnosis (1) Status post reverse total arthroplasty of right shoulder: Status: Acute Reason for Visit Reason for Visit: M12.811 Brief History: hospitalization status post right reverse total shoulder arthroplasty Hospital Course Hospital Course Patient was brought to the preoperative area with plan for right reverse total shoulder arthroplasty seen evaluated by anesthesia once cleared for surgery taken back to the operative suite patient underwent anesthesia per anesthesia department pt underwent a [right]reverse total shoulder arthroplasty without complications. Pt was subsequently taken to PACU in stable condition recovering well in PACU and was admitted to the floor postoperatively. Pt received appropriate postoperative pain medication DVT prophylaxis, perioperative antibiotics. Pt was instructed nonweightbearing to right upper extremity maintain sling work with PT/OT. Pt progressed well postoperatively labs were monitored daily dressing was changed as needed maintain rosi dressing with good seal throughout the hospitalization. Internal medicine was on board to assist with medical management. During hospitalization on postoperative day 1 patient did have a noticeable drop in hemoglobin on her to 7.6 keep having her under 8. Discussed case with hospitalist and at this point in time given her history would recommend keeping her above a 8.0 on hemoglobin she underwent 1 unit PRBC transfusion on postoperative day 1. Patient hemoglobin responded appropriately. Dressing continue to remain intact with no evidence of saturation normal postoperative swelling was appreciated. We did hold her Eliquis given her drop in hemoglobin. At baseline she does have chronic anemia. She responded well to the 1u PRBC and pain controled, patient subsequently on postoperative day [2 ] was determined that patient was stable for discharge from an orthopedic standpoint and medical standpoint. Patient was subsequently discharged home. Given appropriate discharge instructions as well as pain medication instructions on resumption of her anticoagulants per the hospitalist team. Would recommend an early follow-up this coming week with her primary care provider. Follow-up in the orthopedic office in 2 weeks. Patient understands agrees to current plan. Questions answered. Physical Exam Narrative: Examination right upper extremity: Dressings on in place clean dry and intact patient has rosi dressing on in place with good seal there is only a small focal drop of blood appreciated on the dressing no evidence of significant saturation normal postoperative swelling and ecchymosis about the right shoulder. Patient's currently in sling. She is able to wiggle her fingers able to perform AIN/PIN/radial/ulnar/median nerve function as well as sensations intact light touch distally. Axillary motor and sensory is intact and able to fire rear deltoid while in sling. Radial pulse 2+. Right upper extremity warm well-perfused. Discharge Data Studies Completed and Pending Completed Studies During Hospitalization Category Date Time Status XR shoulder RT min 2V* [id number] Routine Exams 06/23/24 10:17 Completed Pending at discharge Category Date Time Status Basic Metabolic Panel AM LABS Lab 06/26/24 04:00 Ordered Complete Blood Count w/Auto AM LABS Lab 06/26/24 04:00 Ordered Radiology Impressions Shoulder X-Ray 06/23/24 10:17 IMPRESSION: 1. Intact RIGHT reverse shoulder prosthesis. Laboratory Results WBC 10.01 10^3/uL (3.29-11.43) 06/25/24 04:27 RBC 2.99 10^6/uL (3.85-5.65) L 06/25/24 04:27 Hgb 8.50 g/dL (11.27-16.99) L 06/25/24 04:27 Hct 27.0 % (36-47) L 06/25/24 04:27 MCV 90.3 fl (85-98) 06/25/24 04:27 MCH 28.4 pg (27-33) 06/25/24 04:27 MCHC 31.5 g/dL (30-55) 06/25/24 04:27 RDW 15.8 % (12.1-15.1) H 06/25/24 04:27 Plt Count 323 10^3/cmm (157-399) 06/25/24 04:27 MPV 9.5 fL (7.4-10.4) 06/25/24 04:27 Neut % (Auto) 57.0 % 06/25/24 04:27 Lymph % (Auto) 25.5 % 06/25/24 04:27 [place] % (Auto) 14.6 % 06/25/24 04:27 Eos % (Auto) 2.4 % 06/25/24 04:27 Baso % (Auto) 0.2 % 06/25/24 04:27 Neut # (Auto) 5.71 10^3/uL (1.8-7.7) 06/25/24 04:27 Lymph # (Auto) 2.6 10^3/uL (0.8-4.8) 06/25/24 04:27 Assumption # (Auto) 1.5 10^3/uL (0.2-0.9) H 06/25/24 04:27 Eos # (Auto) 0.2 10^3/uL (0.0-0.8) 06/25/24 04:27 Baso # (Auto) 0.0 10^3/uL (0.0-0.1) 06/25/24 04:27 Nucleated RBC % (auto) 0 % 06/25/24 04: Nucleated RBCs # 0.0 /100WBC 06/25/24 04:27 Sodium 135 mmol/L (136-145) L 06/25/24 04:27 Potassium 4.4 mmol/L (3.5-5.1) 06/25/24 04:27 Chloride 103 mmol/L (98-107) 06/25/24 04:27 Carbon Dioxide 24 mmol/L (22-29) 06/25/24 04:27 Anion Gap 12.4 (5-19) 06/25/24 04:27 BUN 16 mg/dL (8-23) 06/25/24 04:27 Creatinine 0.6 mg/dL (0.5-0.9) 06/25/24 04:27 GFR Calculation 99.7 mL/min (90-130) 06/25/24 04:27 Glucose 90 mg/dL (65-115) 06/25/24 04:27 Calculated Osmolality 281 mOsm/kg (285-295) L 06/25/24 04:27 Calcium 8.7 mg/dL (8.5-10.5) 06/25/24 04:27 Blood Type O Positive 06/23/24 06:20 Rho(D) Type Rh positive 06/23/24 06:20 Antibody Screen Negative 06/23/24 06:20 Crossmatch See Detail 06/23/24 06:20 Vitals Last Vital Signs Temp 97.9 F 06/25/24 07:34 Pulse 74 06/25/24 07:34 Resp 18 06/25/24 07:34 BP 143/56 04/26/25 07:34 Pulse Ox 95 06/25/24 07:34 O2 Del Method Room Air 06/25/24 07:34 O2 Flow Rate 4 06/23/24 06:49 Discharge Plan Discharge Patient Disposition: Home Health Service Condition: Stable Prescriptions: New melatonin 3 mg Tablet 3 mg PO BEDTIME 15 Days Qty: 15 0RF docusate sodium 100 mg Capsule 100 mg PO BID 10 Days Qty: 20 0RF calcium carbonate-vitamin D3 600 mg-10 mcg (400 unit) Tablet 1 tab PO BID 30 Days Qty: 60 0RF Continued (DME) left arm sling See Rx Instructions .Route .MEDSUPPLY Qty: 1 0RF Rx Instructions: As directed Eliquis 5 mg tablet 5 mg PO Q12H Qty: 60 11RF levothyroxine 25 mcg tablet 50 mcg PO DAILY Qty: 90 11RF lisinopril 40 mg tablet 40 mg PO DAILY Qty: 30 11RF carvedilol 12.5 mg tablet 12.5 mg PO BID Qty: 60 11RF loratadine [Claritin] 10 mg tablet 10 mg PO DAILY Qty: 30 11RF escitalopram oxalate 10 mg tablet 10 mg PO DAILY Qty: 60 2RF atorvastatin 80 mg tablet 80 mg PO BEDTIME magnesium oxide 400 mg (241.3 mg magnesium) tablet 400 mg PO BEDTIME hydralazine 50 mg tablet 50 mg PO BID Rx Instructions: with stable bp fluticasone propionate 50 mcg/actuation spray,suspension 2 spray intranasal DAILY PRN (Reason: allergies) aspirin 81 mg tablet,delayed release (DR/EC) 81 mg PO QAM ferrous sulfate 325 mg (65 mg iron) tablet 325 mg PO DAILY famotidine [Pepcid] 20 mg tablet 20 mg PO QPM Discontinued nifedipine 60 mg tablet extended release 24hr 60 mg PO DAILY No Action hydrocodone-acetaminophen 5-325 mg tablet 1 tab PO Q8H PRN (Reason: pain) 14 Days Qty: 30 0RF Discharge Orders: Discharge Order (Routine); Ordered 06/25/24 Ordered By: Jayjay Saldivar Referrals: Jayjay Saldivar DO [Physician, Orthopedics] - 07/06/24 2:30 am Obey Rose MD [Primary Care Provider, Family Practice] Referral Note: next week (4-7 days) for Dr Rose for followup after surgery/hospitalization, recheck hemoglobin Discharge Diet: Regular Discharge Activity: Limit activity as instructed Patient Instructions: Oxycodone, Rapid Release (By mouth), Acute Wound Care (DC), Shoulder Arthroplasty (DC), Rotator Cuff Tear Repair (DC), Joint Replacement Stoplight, Opioid Safety, Post Anesthesia Care Activity Restrictions/Additional Instructions: Orthopedic discharge instructions: Keep dressing on and intact. You have a Rosi dressing with battery pack on it. The battery pack lasts for about 5 to 7 days and when battery goes you can remove dressing. If you are going to shower detach battery pack from dressing and then reattach after shower. Leave your rosi dressing on until the 2-week follow-up visit Keep arm in shoulder sling for the next 6 weeks. To prevent frozen shoulder you can take arm out of sling and let it hang down and do pendulum swings. Okay to come out of sling and range the elbow No active Range of motion of the shoulder No weight-bearing to the operative extremity. Ice and elevate as needed for pain and swelling Take pain medication as prescribed Take antinausea medication as needed Resume home blood thinners (aspirin and Eliquis) as instructed by hospitalist May supplement for pain with Tylenol twax-[id number] as needed(1000 mg every 8 hours-do not exceed more than 3000mg in 24-hour period) No baths or soaks Follow-up in the orthopedic office in 2 weeks Contact the office for any questions or concerns If any issues of low blood pressures, fevers chills chest pain shortness of breath report to the emergency department May restart Eliquis on 06/28/24 Plan of Treatment: Please resume Eliquis on 06/28/24 at your usual dose. Discharge Attestations Time Spent in Discharge Care*: less than 30 min Status at Discharge: Cognitive status at discharge: mildly impaired cognition, Behavioral status at discharge: cooperative, Quality Metrics Clinical Quality Measures [ No reported AMI, CVA or VTE this stay] Coding Level of Care Code Acute Code for Chg Fwd Diagnoses Status post reverse total arthroplasty of right shoulder Z96.611 Time Spent (min) 25
[2024-06-25] MEDS: iron polysaccharide complex 150 mg Capsule PO (08:14)
[2024-06-25] MEDS: levothyroxine 50 mcg Tablet PO (08:15)
[2024-06-25] MEDS: escitalopram 10 mg Tablet PO (08:15)
[2024-06-25] MEDS: NIFEdipine ER (24 hr) 30 mg Tablet 60 MG PO (08:15)
[2024-06-25] MEDS: calcium carb-vit d 600mg/400unit 1 Tablet 1 EACH PO (08:15)
[2024-06-25] MEDS: multivitamin therapeutic Tablet 1 TAB PO (08:15)
[2024-06-25] MEDS: docusate sodium 100 mg Capsule PO (08:15)
[2024-06-25] MEDS: chlorhexidine gluconate 0.12% Btl 473 mL 30 ML MUCOUS MEM (08:16)
[2024-06-25 11:17] VITALS: RESP 16
[2024-06-25 11:24] VITALS: BP 135/75; PULSE 69; RESP 18; TEMP 36.3; O2SAT 90
[2024-06-25 11:29] VITALS: BP 135/75; PULSE 69; RESP 18; TEMP 36.3; O2SAT 95
== END 2024-06-25 11:34 | disposition home or self-care (01) | DRG 483 ==
LOC: MEDSURG 14:25
PROVIDERS: Physician Assistant; Admitting Provider Student in an Organized Health Care Education/Training Program; PCP Family Medicine; Visit Provider Internal Medicine
PROC: 0RRJ00Z Replacement of Right Shoulder Joint with Reverse Ball and Socket Synthetic Substitute, Open Approach (ICD-10-PCS; CPT 23472; principal; 2024-06-23 07:00)
DX: M19.011 Primary osteoarthritis, right shoulder (principal); I50.32 Chronic diastolic (congestive) heart failure; F31.81 Bipolar II disorder; M75.101 Unspecified rotator cuff tear or rupture of right shoulder, not specified as traumatic; D64.9 Anemia, unspecified; E03.9 Hypothyroidism, unspecified; I48.91 Unspecified atrial fibrillation; I27.20 Pulmonary hypertension, unspecified; I11.0 Hypertensive heart disease with heart failure; E11.9 Type 2 diabetes mellitus without complications; E78.00 Pure hypercholesterolemia, unspecified; F41.9 Anxiety disorder, unspecified; Z79.01 Long term (current) use of anticoagulants; Z79.82 Long term (current) use of aspirin; Z86.73 Personal history of transient ischemic attack (TIA), and cerebral infarction without residual deficits; Z98.84 Bariatric surgery status
CPT/HCPCS: 36415; 36430; 73030; 80048; 85014; 85018; 85025; 86850; 86900; 86920; 97116; 97161; 97165; C1713; C1776; G0378; J0131; J0690; J1100; J1171; J1885; J2371; J2405; J2704; J2795; J3010; J3370; J3490; J7030; J7120; J9999; P9040

== ENCOUNTER → 2024-06-28 14:57 | Outpatient (BNVA) | payer MEDICARE, OTHER, SELFPAY | PROVIDERS: PCP Family Medicine; Visit Provider Family Medicine | DX: Z98.890 Other specified postprocedural states (principal) | CPT/HCPCS: 85025 ==

== ENCOUNTER → 2024-07-06 14:19 | Outpatient (BNVA) | payer MEDICARE, OTHER, SELFPAY | PROVIDERS: PCP Family Medicine; Visit Provider Student in an Organized Health Care Education/Training Program | DX: Z96.611 Presence of right artificial shoulder joint (principal); Z98.890 Other specified postprocedural states | CPT/HCPCS: 73030; 99024 ==

== ENCOUNTER → 2024-07-14 14:25 | Outpatient (BNVA) | payer MEDICARE, OTHER, SELFPAY | PROVIDERS: PCP Family Medicine; Visit Provider Family Medicine | DX: Z96.611 Presence of right artificial shoulder joint (principal) | CPT/HCPCS: 80048; 85025 ==

== ENCOUNTER → 2024-08-03 14:31 | Outpatient (BNVA) | payer MEDICARE, OTHER, SELFPAY | PROVIDERS: PCP Family Medicine; Visit Provider Physician Assistant | DX: Z96.611 Presence of right artificial shoulder joint (principal) | CPT/HCPCS: 73030; 99024 ==

== ENCOUNTER 2024-08-06 20:11 | Emergency (ER) | payer MEDICARE, OTHER, SELFPAY ==
[2024-08-06 20:12] VITALS: BP 177/71; PULSE 90; RESP 16; TEMP 36.8; O2SAT 99; BMI 24.9
[2024-08-06 21:10] VITALS: BP 180/81; PULSE 70; RESP 16; O2SAT 98
--- NOTE | 2024-08-06 21:27 | W.ED.GENADLT ---
HPI - General Adult General: Chief complaint: General Medical Stated complaint: High BP Time Seen by Provider: 08/06/24 21:07 History of Present Illness: Patient is a pleasant 68-year-old female with longstanding history of hypertension, A-fib, on Eliquis that presents to the emergency room due to headache due to uncontrolled blood pressure. Patient was questioning while she was taken off her nifedipine at the end of May. I am unable to locate the reason. She denies any chest pain, palpitations, and mainly her headache with her elevation of blood pressure. This has continued throughout today. No gait disturbances or other mono neurological issues. Associated symptoms: Reports headache(s); Deny dyspnea, nausea or vomiting Related Data Home Medications ?Medication ?Instructions ?Recorded ?Confirmed atorvastatin 80 mg tablet 80 mg PO BEDTIME 10/23/23 08/03/24 aspirin 81 mg tablet,delayed 81 mg PO QAM 01/15/24 08/03/24 release ferrous sulfate 325 mg (65 mg 325 mg PO DAILY 01/15/24 08/03/24 iron) tablet fluticasone propionate 50 2 spray intranasal DAILY PRN 05/29/24 08/03/24 mcg/actuation nasal allergies spray,suspension hydralazine 50 mg tablet 50 mg PO BID 05/29/24 08/03/24 magnesium oxide 400 mg (241.3 mg 400 mg PO BEDTIME 05/29/24 08/03/24 magnesium) tablet famotidine 20 mg tablet (Pepcid) 20 mg PO QPM 06/22/24 08/03/24 Previous Rx's ?Medication ?Instructions ?Recorded levothyroxine 25 mcg tablet 50 mcg (2 x 25 mcg) PO DAILY #90 08/04/23 tabs lisinopril 40 mg tablet 40 mg PO DAILY #30 tabs 08/31/23 left arm sling #1 ea 09/17/23 carvedilol 12.5 mg tablet 12.5 mg PO BID #60 tabs 12/14/23 loratadine 10 mg tablet (Claritin) 10 mg PO DAILY #30 tabs 12/14/23 apixaban 5 mg tablet (Eliquis) 5 mg PO Q12H #60 tabs 12/31/23 escitalopram oxalate 10 mg tablet 10 mg PO DAILY #60 tabs 04/25/24 hydrocodone 5 mg-acetaminophen 325 1.5 tab PO TID PRN pain 2 weeks 07/28/24 mg tablet #60 tabs nifedipine 60 mg tablet,extended 60 mg PO DAILY #30 tabs 08/06/24 release Allergies Allergy/AdvReac Type Severity Reaction Status Date / Time No Known Drug Allergies Allergy Unknown Verified 08/03/24 14:31 Review of Systems Const: Denies: fever(s) or chills Resp: Denies: dyspnea or productive cough GI: Denies: abdominal pain, nausea or vomiting Musc: Denies: neck pain, back pain or joint pain Neuro: Reports: headache(s); Denies: numbness in extremities, weakness in extremities, sensory changes or frequent falls PFSH ED PFSH: Medical History Anemia Hypothyroidism Atrial fibrillation with RVR Hypotension Postoperative anemia Atrial fibrillation Right-sided lacunar infarction Severe pulmonary hypertension Diastolic heart failure On Coumadin for atrial fibrillation Elevated d-dimer Elevated troponin Dyspnea Hyponatremia Atrial fibrillation with RVR Dehydration Hyponatremia Altered mental status Subacromial impingement of left shoulder Rotator cuff tear, left Bipolar 2 disorder Anxiety Diabetes Hypercholesterolemia Syncope Urgency of urination Hypertension Surgical History S/P shoulder surgery Hx of section x 3 Hx of bilateral cataract extraction H/O gastric bypass Family History Grandmother Cancer Hyperlipidemia Hypertension Mother Hypertension CAD (coronary artery disease) unknown age of onset Denies family history of Diabetes Clotting disorder Dementia Chronic kidney disease (CKD) Suicide Anesthesia complication Bleeding disorder Lung disease Stroke Social History Smoking and tobacco/nicotine status: never used tobacco/nicotine Alcohol intake: never Substance/Drug Use: never Marital status: Physical Exam Const: COMMON NORMALS: patient oriented x3 Neuro: COMMON NORMALS: patient oriented x3 and CN's II-XII intact bilaterally Psych: COMMON NORMALS: mental status grossly normal and Normal thought process present THOUGHT PROCESS: Normal thought process present Course Vital Signs: Vital signs: Vital Signs Temperature 98.2 F 08/06/24 20:12 Pulse Rate 70 08/06/24 22:30 Respiratory Rate 16 08/06/24 22:30 Blood Pressure 166/78 08/06/24 22:30 Pulse Oximetry 98 08/06/24 22:30 Oxygen Delivery Me thod Room Air 08/06/24 22:30 MDM - General Adult Medical Decision Making Patient is a 68-year-old female that reports to emergency room with elevation of blood pressure without other significant complaints other than headache. Nifedipine extended release 60 mg was stopped at the end of May. Patient has been compliant to her carvedilol, hydralazine, lisinopril. Patient is quite insistent on correction of her blood pressure tonight. I have explained to patient we typically do not correct blood pressures in the ED that are not greater than 220 systolic. I do not see another calcium channel chantale, and therefore we will give nifedipine ER 60 mg x 1, and if patient tolerates will send to pharmacy and have patient follow-up with primary care. No radiology studies performed this visit Discharge Plan Discharge Patient Disposition: Home Clinical Impression: Hypertension Qualifiers: Hypertension type: primary hypertension Qualified Code(s): I10 - Essential (primary) hypertension Condition: Stable Prescriptions: New nifedipine 60 mg tablet extended release 60 mg PO DAILY Qty: 30 0RF No Action hydrocodone-acetaminophen 5-325 mg tablet 1.5 tab PO TID PRN (Reason: pain) 14 Days Qty: 60 0RF (DME) left arm sling See Rx Instructions .Route .MEDSUPPLY Qty: 1 0RF Rx Instructions: As directed Eliquis 5 mg tablet 5 mg PO Q12H Qty: 60 11RF levothyroxine 25 mcg tablet 50 mcg PO DAILY Qty: 90 11RF lisinopril 40 mg tablet 40 mg PO DAILY Qty: 30 11RF carvedilol 12.5 mg tablet 12.5 mg PO BID Qty: 60 11RF loratadine [Claritin] 10 mg tablet 10 mg PO DAILY Qty: 30 11RF escitalopram oxalate 10 mg tablet 10 mg PO DAILY Qty: 60 2RF atorvastatin 80 mg tablet 80 mg PO BEDTIME magnesium oxide 400 mg (241.3 mg magnesium) tablet 400 mg PO BEDTIME hydralazine 50 mg tablet 50 mg PO BID Rx Instructions: with stable bp fluticasone propionate 50 mcg/actuation spray,suspension 2 spray intranasal DAILY PRN (Reason: allergies) aspirin 81 mg tablet,delayed release (DR/EC) 81 mg PO QAM ferrous sulfate 325 mg (65 mg iron) tablet 325 mg PO DAILY famotidine [Pepcid] 20 mg tablet 20 mg PO QPM Discharge Orders: Discharge ED (Routine); Ordered 08/06/24 Ordered By: Ce Rousseau Referrals: Obey Rose MD [Primary Care Provider, Family Practice] Patient Instructions: DASH Eating Plan (ED), Hypertension (ED) Activity Restrictions/Additional Instructions: Is important to follow-up with your doctor Return to ED for further issues Print Language: Namibian Coding Level of Care Code ED Supervisor [employer] for Mayela Jacobsen
[2024-08-06] MEDS: NIFEdipine ER (24 hr) 30 mg Tablet 60 MG PO (22:16)
[2024-08-06 22:30] VITALS: BP 166/78; PULSE 70; RESP 16; O2SAT 98
[2024-08-06] MEDS: HYDROcodone-acetaminophen 10-325 mg Tablet 1 TAB PO (23:37)
[2024-08-06 23:45] VITALS: BP 173/70; PULSE 75; RESP 16; O2SAT 98
== END 2024-08-06 23:46 | disposition home or self-care (01) ==
PROVIDERS: Emergency Provider Physician Assistant; PCP Family Medicine
DX: I10 Essential (primary) hypertension (principal); Z79.01 Long term (current) use of anticoagulants; Z79.82 Long term (current) use of aspirin; I11.0 Hypertensive heart disease with heart failure; I50.30 Unspecified diastolic (congestive) heart failure
CPT/HCPCS: 99283; J9999

== ENCOUNTER 2024-08-10 09:06 | Outpatient (RCR) | payer MEDICARE, OTHER, SELFPAY | END 2024-08-29 23:59 | disposition home or self-care (01) | LOC: SPT 09:06 | PROVIDERS: PCP Family Medicine; Visit Provider Physician Assistant | DX: Z47.1 Aftercare following joint replacement surgery (principal); Z96.611 Presence of right artificial shoulder joint | CPT/HCPCS: 97110; 97161 ==

== ENCOUNTER 2024-08-22 10:25 | Emergency (ER) | payer MEDICARE, SELFPAY ==
[2024-08-22 10:34] VITALS: BP 119/61; PULSE 67; RESP 17; TEMP 36.6; O2SAT 98; BMI 24.7
[2024-08-22 11:01] VITALS: BP 143/65; PULSE 72; RESP 16; O2SAT 99
--- NOTE | 2024-08-22 11:25 | W.ED.EXTPRO ---
HPI - Extremity Problem General: Chief complaint: Extremity Injury, Upper Stated complaint: R shoulder pain, 6 weeks post shoulder replacement Time Seen by Provider: 08/22/24 10:57 Source: patient Mode of arrival: ambulatory Limitations: no limitations History of Present Illness: Patient is a 68-year-old female presents to ED today with complaint of right shoulder pain. She believes she is approximately 6 weeks postop from a shoulder replacement by Dr. Saldivar. She states she has only completed one session of physical therapy. She states over the past 3 days or so she has had increased pain to the shoulder. She has not noticed any redness or warmth. No fevers. Denies any known injury or trauma. Patient is not complaining of any numbness, tingling, loss of sensation, or weakness. MD Complaint: joint pain Onset (ago): day(s) Pain Consistency: constant Location: right and upper extremity Radiation: none Relieving factors: nothing Exacerbating factors: range of motion Associated symptoms: Reports no associated symptoms; Deny chest pain or fever(s) Related Data Home Medications ?Medication ?Instructions ?Recorded ?Confirmed atorvastatin 80 mg tablet 80 mg PO BEDTIME 10/23/23 08/11/24 aspirin 81 mg tablet,delayed 81 mg PO QAM 01/15/24 08/11/24 release ferrous sulfate 325 mg (65 mg 325 mg PO DAILY 01/15/24 08/11/24 iron) tablet fluticasone propionate 50 2 spray intranasal DAILY PRN 05/29/24 08/11/24 mcg/actuation nasal allergies spray,suspension hydralazine 50 mg tablet 50 mg PO BID 05/29/24 08/11/24 magnesium oxide 400 mg (241.3 mg 400 mg PO BEDTIME 05/29/24 08/11/24 magnesium) tablet famotidine 20 mg tablet (Pepcid) 20 mg PO QPM 06/22/24 08/11/24 Previous Rx's ?Medication ?Instructions ?Recorded levothyroxine 25 mcg tablet 50 mcg (2 x 25 mcg) PO DAILY #90 08/04/23 tabs lisinopril 40 mg tablet 40 mg PO DAILY #30 tabs 08/31/23 left arm sling #1 ea 09/17/23 carvedilol 12.5 mg tablet 12.5 mg PO BID #60 tabs 12/14/23 loratadine 10 mg tablet (Claritin) 10 mg PO DAILY #30 tabs 12/14/23 apixaban 5 mg tablet (Eliquis) 5 mg PO Q12H #60 tabs 12/31/23 escitalopram oxalate 10 mg tablet 10 mg PO DAILY #60 tabs 04/25/24 nifedipine 60 mg tablet,extended 60 mg PO DAILY #30 tabs 08/10/24 release hydrocodone 5 mg-acetaminophen 325 1.5 tab PO TID PRN pain 2 weeks 08/22/24 mg tablet #60 tabs Allergies Allergy/AdvReac Type Severity Reaction Status Date / Time No Known Drug Allergies Allergy Unknown Verified 08/22/24 10:38 Review of Systems Const: Denies: fever(s) Card: Denies: chest pain or palpitations Musc: Reports: joint pain and limited range of motion; Denies: neck pain, back pain, extremity pain, extremity swelling, joint swelling, joint redness or joint warmth PFSH ED PFSH: Medical History Anxiety Anemia Hypothyroidism Atrial fibrillation with RVR Hypotension Postoperative anemia Atrial fibrillation Right-sided lacunar infarction Severe pulmonary hypertension Diastolic heart failure On Coumadin for atrial fibrillation Elevated d-dimer Elevated troponin Dyspnea Hyponatremia Atrial fibrillation with RVR Dehydration Hyponatremia Altered mental status Subacromial impingement of left shoulder Rotator cuff tear, left Bipolar 2 disorder Diabetes Hypercholesterolemia Syncope Urgency of urination Hypertension Surgical History S/P shoulder surgery Hx of section x 3 Hx of bilateral cataract extraction H/O gastric bypass Family History Grandmother Cancer Hyperlipidemia Hypertension Mother Hypertension CAD (coronary artery disease) unknown age of onset Denies family history of Diabetes Clotting disorder Dementia Chronic kidney disease (CKD) Suicide Anesthesia complication Bleeding disorder Lung disease Stroke Social History Smoking and tobacco/nicotine status: unknown if used tobacco/nicotine Alcohol intake: never Substance/Drug Use: never Marital status: Physical Exam Const: COMMON NORMALS: no acute distress, average body habitus, patient oriented x3, no limitations, healthy appearing, alert and well nourished Resp: COMMON NORMALS: normal respiratory effort and clear to auscultation bilaterally AUSCULTATION: clear to auscultation bilaterally Cardio: COMMON NORMALS: regular rate and regular rhythm RATE: regular rate RHYTHM: regular rhythm Extremity: COMMON NORMALS: normal to inspection and capillary refill normal GENERAL: Yes normal exam except as noted RIGHT UPPER EXTREMITY: Yes shoulder joint Right shoulder: Yes Right shoulder joint inspection exam (normal gross inspection; surgical incision has healed well), Yes Right shoulder joint ROM exam (limited due to pain) and Yes Right shoulder joint neurovascular exam (normal) Neuro: COMMON NORMALS: patient oriented x3, moves all extremities, no focal motor deficits and no sensory deficits noted SENSORIUM/ORIENTATION: Yes alert Course Vital Signs: Vital signs: Vital Signs Temperature 97.9 F 08/22/24 10:34 Pulse Rate 72 08/22/24 11:01 Respiratory Rate 16 08/22/24 11:50 Blood Pressure 143/65 08/22/24 11:01 Pulse Oximetry 99 08/22/24 11:01 Oxygen Delivery Me thod Room Air 08/22/24 10:34 MDM - Extremity (Nontraumatic) Medical Decision Making XR right shoulder is unremarkable. Prosthesis appears stable. She reported relief after IM medications given here. Recommend she follow-up with her orthopedic surgeon. Lab Data Radiology Impressions Shoulder X-Ray 08/22/24 11:37 IMPRESSION: 1. Stable appearing reverse shoulder prosthesis. All radiology interpretation(s) finalized by discharge Discharge Plan Discharge Patient Disposition: Home Clinical Impression: Pain in right shoulder Qualifiers: Chronicity: acute Qualified Code(s): M25.511 - Pain in right shoulder Condition: Stable Prescriptions: No Action (DME) left arm sling See Rx Instructions .Route .MEDSUPPLY Qty: 1 0RF Rx Instructions: As directed Eliquis 5 mg tablet 5 mg PO Q12H Qty: 60 11RF levothyroxine 25 mcg tablet 50 mcg PO DAILY Qty: 90 11RF lisinopril 40 mg tablet 40 mg PO DAILY Qty: 30 11RF carvedilol 12.5 mg tablet 12.5 mg PO BID Qty: 60 11RF loratadine [Claritin] 10 mg tablet 10 mg PO DAILY Qty: 30 11RF escitalopram oxalate 10 mg tablet 10 mg PO DAILY Qty: 60 2RF nifedipine 60 mg tablet extended release 60 mg PO DAILY Qty: 30 11RF hydrocodone-acetaminophen 5-325 mg tablet 1.5 tab PO TID PRN (Reason: pain) 14 Days Qty: 60 0RF atorvastatin 80 mg tablet 80 mg PO BEDTIME magnesium oxide 400 mg (241.3 mg magnesium) tablet 400 mg PO BEDTIME hydralazine 50 mg tablet 50 mg PO BID Rx Instructions: with stable bp fluticasone propionate 50 mcg/actuation spray,suspension 2 spray intranasal DAILY PRN (Reason: allergies) aspirin 81 mg tablet,delayed release (DR/EC) 81 mg PO QAM ferrous sulfate 325 mg (65 mg iron) tablet 325 mg PO DAILY famotidine [Pepcid] 20 mg tablet 20 mg PO QPM Discharge Orders: Discharge ED (Routine); Ordered 08/22/24 Ordered By: Suzanne Benedict Referrals: Obey Rose MD [Primary Care Provider, Family Practice] Activity Restrictions/Additional Instructions: As we discussed, your x-ray was unremarkable. Will have you follow-up with your surgeon for further evaluation of your discomfort. Print Language: Kyrgyz Coding Level of Care Code ED Resort Host for Mayela Jacobsen
--- NOTE | 2024-08-22 11:37 | XR_ITS ---
WS: [id number] Exam: XR shoulder RT min 2V* [id number] Date/Time of Exam: 08/22/2024 11:39 AM Reason For Exam: pain Comparison 08/03/2024. Stable appearing right reverse shoulder prosthesis. No hardware complications identified. XR/XR shoulder RT min 2V* [id number] IMPRESSION: 1. Stable appearing reverse shoulder prosthesis.
[2024-08-22 11:50] VITALS: RESP 16
[2024-08-22] MEDS: ketorolac 30 mg/mL INJ 15 MG IM (11:50)
[2024-08-22] MEDS: morphine 4 mg/mL SDV 1 mL IM (11:50)
[2024-08-22] MEDS: dexamethasone 10 mg/mL INJ 6 MG IM (11:50)
[2024-08-22 12:20] VITALS: BP 139/55; PULSE 64; RESP 16; O2SAT 100
--- NOTE | 2024-08-25 08:11 | DCPLANNER ---
messaged ortho for er f/u
== END 2024-08-22 12:21 | disposition home or self-care (01) ==
PROVIDERS: Emergency Provider Physician Assistant; PCP Family Medicine
DX: M25.511 Pain in right shoulder (principal); Z79.01 Long term (current) use of anticoagulants; Z79.82 Long term (current) use of aspirin; E11.9 Type 2 diabetes mellitus without complications; I11.0 Hypertensive heart disease with heart failure; I50.30 Unspecified diastolic (congestive) heart failure
CPT/HCPCS: 73030; 96372; 99284; J1100; J1885; J2270

== ENCOUNTER 2024-08-26 21:22 | Emergency (ER) | payer MEDICARE, SELFPAY ==
--- OUTSIDE RECORDS SUMMARY | 2023-12-24 12:00 | XMS_ITS ---
Author Organization [email or web address] Address [address] [place] [address] Care Team Providers Care Cage Cashier Name Role Phone Obey Rose Primary Care Provider STEPHEN Pina Unavailable [phone] WHITNEY DIOP Unavailable [phone] REASON FOR VISIT Pt cx/ will call back to rs--- 3 mo w/ ua/pvr Encounters Encounter Location Date Provider Diagnosis [facility] [employer] [address] [place] [address] 12/24/2023 WHITNEY DIOP Plan Of Treatment No Information Progress Notes * Trish SWAN DDOB: [birth year] (68 yo F)Acc No.[id number]:12/24/2023 Progress Notes Patient: Mulu ROMAN Trish Wang Provider: Sharla Diop APRN :1955 A ge:68 Y S ex:Female Date:12/24/2023 Address:[address], [id number] Pcp:Obey Rose Subjective: * Chief Complaints: * 1 . Pt cx/ will call back to rs--- 3 mo w/ ua/pvr. * Medical History: Objective: * Vitals: Assessment: Plan: * Treatment: * Billing Information: * Visit Code: * Procedure Codes: * Electronic signature of ANNELIESE DIOP APRN on 08/26/2024 at 09:29 PM CDT Sign off status: Pending * Provider: Sharla Diop APRN Date: 1 Generated for Breezy lopez/Darling/Madhuri on: 0 08/26/2024 09:29 PM CDT
--- OUTSIDE RECORDS SUMMARY | 2024-08-26 21:28 | XMS_ITS | Continuity of Care Document ---
Author Organization Formerly [facility]. If a dditional information is needed, contact Health Information Management at [phone] [place] [address] Phone Care Team Providers Care Director Of Volunteer Services Name Role Phone Unavailable Unavailable Unavailable Unavailable Unavailable Unavailable Unavailable Unavailable Unavailable Problems Fatigue Onset:06-Dec-2022 Brian Calvillo MD Anemia Onset:06-Dec-2022 Brian Calvillo MD Allergies and Adverse Reactions IV CONTRAST(Allergy) Onset: 06-Dec-2022 Reaction:UNKNOWN Social History Smoking Status Tobacco smoking consumption unknown Recorded: Nov-2022
--- OUTSIDE RECORDS SUMMARY | 2024-08-26 21:29 | XMS_ITS | Patient Health Record ---
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 [employer] Name Role Phone Obey Rose Primary Care Provider STEPHEN Pina Unavailable [phone] WHITNEY DIOP Unavailable [phone] Allergies No Known Allergies Results Component Value Reference Range Notes Urinalysis, Routine Reviewed date:09/24/2023 02:42:22 PM Interpretation: Performing Lab: Notes/Report: Urine-Color yellow Appearance clear Glucose - Bilirubin - Ketones - Specific [place] 1.010 Occult Blood - pH 6.5 Urine [...] Problem Status W/U Status Risk Notes Problem 80258180 Essential (primary) hypertension (I10) Active confirmed Problem Use of anticoagulation (972232359) Chronic anticoagulation (Z79.01) Active confirmed Problem Anxiety about health (883088273) Anxiety about health (F41.8) Active confirmed Problem Urinary frequency (740680668) Urinary frequency (R35.0) Active confirmed Problem Recurrent urinary tract infection (073895537) Recurrent UTI (N39.0) Active confirmed Problem Lesion of bladder (320021685) Lesion of bladder (N32.9) Active confirmed Problem History of urinary tract infection (6402771653561) History of UTI (Z87.440) Active confirmed Problem Overactive urinary bladder (disorder) (472257651) OAB (overactive bladder) (N32.81) Active confirmed Vital Signs Heart Rate 84 /min 09/24/2023 Height-cm 154.94 cm 09/24/2023 Blood pressure diastolic 50 mm Hg 09/24/2023 Weight-kg 70.31 kg 09/24/2023 Height 61 in 09/24/2023 Blood pressure systolic 123 mm Hg 09/24/2023 Weight 155 lbs 09/24/2023 BMI 29.28 kg/m2 09/24/2023 Procedures Procedure Date Ordered Date Performed Result Body Sit e Bladder Scan 09/24/2023 09/24/2023 8 mL Encounters Encounter Location Date Provider Diagnosis [facility] [address] [place] [address] 09/08/2023 STEPHEN SARMIENTO OAB (overactive bladder) N32.81 ; Urgency of urination R39.15 and Frequency of urination R35.0 [facility] [address] [place] [address] 09/24/2023 WHITNEY DIOP Urgency of urination R39.15 ; OAB (overactive bladder) N32.81 and Frequency of urination R35.0 [facility] [address] [place] [address] 08/31/2023 STEPHEN SARMIENTO Preop testing Z01.81 8 ; Essential (primary) hypertension I10 and Lesion of bladder N32.9 Assessments Encounter Date Diagnosis (ICD Code) Assessment Notes Treatment Notes Treatment Clinical Notes Section Notes 08/31/2023 Preop testing (ICD-10 - Z01.818) 09/08/2023 Urgency of urination (ICD-10 - R39.15) 09/08/2023 OAB (overactive bladder) (ICD-10 - N32.81) 09/24/2023 Urgency of urination (ICD-10 - R39.15) 09/24/2023 OAB (overactive bladder) (ICD-10 - N32.81) Pt doing well postoperatively without complication. She was hoping for more improvement than she received, but she has had well over a 50% improvement in symptoms. UA is clear. Emtpying well. Will have her RTC in 3m with UA/PVR for reassessment. 09/24/2023 Frequency of urination (ICD-10 - R35.0) 09/08/2023 Frequency of urination (ICD-10 - R35.0) 08/31/2023 Essential (primary) hypertension (ICD-10 - I10) 08/31/2023 Lesion of bladder (ICD-10 - N32.9) Plan Of Treatment Pending Test Test Name Order Date CULTURE, URINE, ROUTINE (395) 07/28/2023 Basic Metabolic Panel 08/31/2023 CBC w/ Auto Diff 08/31/2023 UA Reflex -- [id number] 08/31/2023 Electrocardiogram, 12 Lead Tracing-[id number] 07/28/2023 Insurance Providers Payer Name Payer Address Payer Phone Subscriber Number Group Number Insured Name Patient Relationship to Insured Coverage Start Date Coverage End Date [place] [address] [address] [place], [place] [id number] Trish Rocha Self - patient is the insured [facility] Supplement [address] [place], [place] [id number] Silvia Rochanda Self - patient is the insured Medical (General) History Medical History History ICD Code hemorrhoids hypertension back trouble recurrent bladder infections arthritis Surgical History Surgery Date(Month/Year) X 3 tonsillectomy Hospitalization History Reason Date(Month/Year) rapid heart beat/afib 06/2023 High BP 09/2022 hospitalized for High bp 04/2022
--- OUTSIDE RECORDS SUMMARY | 2024-08-26 21:29 | XMS_ITS | Clinical Summary ---
Author Organization [facility] Address [address] [place] [address] Care Team Providers Care Mental Health Clinician Name Role Phone Johnie Tijerina DO Primary Care Provider [phone] Allergies No known active allergies Medications ALPRAZolam (XANAX) 1 mg tablet 1 mg 1 time daily as needed. 05/24/2015 Active levothyroxine 50 mcg tablet 50 mcg daily. 05/07/2015 A ctive simvastatin (ZOCOR) 20 mg tablet 20 mg daily. 05/21/2015 Active traMADol (ULTRAM) 50 mg tablet 50 mg 1 time daily as needed. 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 Gender Identity Not on file Sexual Orientation Not on file Last Filed Vital Signs Vital Sign Reading Time Taken Comments Blood Pressure 137/48 02/21/2020 11:02 AM PROCESS EXCELLENCE MANAGER Pulse 50 02/21/2020 11:02 AM PROCESS EXCELLENCE MANAGER Temperature 37.1 C (98.8 F) 02/21/2020 9:14 AM PROCESS EXCELLENCE MANAGER Respiratory Rate 20 02/21/2020 11:02 AM PROCESS EXCELLENCE MANAGER Oxygen Saturation 100% 02/21/2020 11:02 AM PROCESS EXCELLENCE MANAGER Inhaled Oxygen Concentration - - Weight 80.7 kg (178 lb) 02/13/2020 12:15 PM PROCESS EXCELLENCE MANAGER Height 154.9 cm (5' 1 ) 02/13/2020 12:15 PM PROCESS EXCELLENCE MANAGER Body Mass Index 33.63 02/13/2020 12:15 PM PROCESS EXCELLENCE MANAGER Plan of Treatment Health Maintenance Due Date Last Done Comments DTAP/TDAP/TD VACCINES (1 - Tdap) 11/18/1975 BREAST CANCER SCREENING 1996 FIT-DNA Q 3 years 2001 FIT/FOBT Q 1 year 2001 Flex Sig/CT Colonography Q 5 years 2001 PNEUMOCOCCAL VACCINE 50+ YEA RS (1 of 1 - PCV) [...] Comments COLONOSCOPY REPORT 02/21/2020 10 :32 AM PROCESS EXCELLENCE MANAGER HEMOGLOBIN A1C Routine 11/01/2015 5:40 AM CDT from Last 3 Months or Most Recently Relevant to Health Maintenance Results * COLONOSCOPY REPORT (02/21/2020 10:32 AM PROCESS EXCELLENCE MANAGER) Narrative Procedure Note Marcell Small MD - 02/21/2020 10:31 AM CST [facility] GI Patient Name: Trish Rocha Procedure Date: [...] satisfactory condition to undergo the procedure. - [place] Protocol: - Pre-procedure Verification: Prior to the [...] In: 10:16:57 AM Scope Out: 10:28:32 AM [address] [place], [place] Marcell Small MD GI PROCEDURE ORDERABL ES Final Result * (ABNORMAL) HEMOGLOBIN A1C (11/01/2015 5:40 AM CDT) HEMOGLOBIN A1C 6.2(H) 4.0 - 6.0 % 11/01/2015 11:37 AM CDT [facility] [employer] [facility] EST. AVG GLUCOSE, A1C 131 mg/dL 11/01/2015 11:37 AM CDT [facility] Blood Venipuncture - L ab Collect / Unknown 11/01/2015 5:40 AM CDT 11/01/2015 5:59 AM CDT Narrative [facility] - 11/01/2015 11:37 AM CDT Test performed on [employer] instrumentation using HPLC methodology us David Joyner MD CHEMISTRY ORDERABLES Fi nal Result [facility] CLIA# [id number] [address] [place] [address] from Last 3 Months or Most Recently Relevant to Health Maintenance Insurance MEDICARE PART A AND B [facility] MEDICARE PART A AND B [facility] Advance Directives For more information, please contact: [phone] * Full Code (Latest Code Status on File) Date Activated Date Inactivated Comments 08/13/2017 9:16 AM 08/13/2017 12:38 PM * Full Code Date Activated Date Inactivated Comments 10/31/2015 10:52 AM 11/01/2015 7:35 PM * Full Code Date Activated Date Inactivated Comments 10/31/2015 5:22 AM 10/31/2015 10:52 AM * Full Code Date Activated Date Inactivated Comments 08/22/2015 10:46 AM 08/22/2015 2:11 PM Care Teams Mental Health Clinician Relationship Specialty Start Date End Date Johnie Tijerina DO PCP - General Family Practice 05/24/15
--- NOTE | 2024-08-26 21:50 | XRR_ITS ---
PROCEDURE INFORMATION: Exam: XR Right Shoulder Exam date and time: 08/26/2024 11:29 PM Age: 68 years old Clinical indication: Pain; Prior surgery; Surgery date: 1-6 months; Surgery type: Right shoulder 6 weeks post-op; Additional info: Post surgery pain TECHNIQUE: Imaging protocol: Radiologic exam of the right shoulder. Views: 2 or more views. COMPARISON: CR XR chest 1V portable [id number] 05/29/2024 4:02 PM FINDINGS: Tubes, catheters and devices: The surgical hardware is intact and in good alignment and position. Bones/joints: Postoperative changes from right total shoulder replacement. No acute bony abnormality. Degenerative changes involve the acromioclavicular joint. Soft tissues: Normal. XR/XR shoulder RT min 2V* [id number] IMPRESSION: No acute abnormality.
[2024-08-26 21:57] VITALS: BP 129/71; PULSE 74; RESP 22; TEMP 36.8; O2SAT 100; BMI 24.3
[2024-08-26 23:34] VITALS: BP 156/70; PULSE 69; O2SAT 99
--- NOTE | 2024-08-27 00:17 | W.ED.EXTPRO ---
HPI - Extremity Problem General: Chief complaint: Extremity Injury, Upper Stated complaint: post surg, popped today severe pain Time Seen by Provider: 08/26/24 23:33 History of Present Illness: Patient is a 68-year-old female with reverse total arthroplasty of right shoulder presents with a sudden onset of pain and the feeling of a pop. She states it feels like lightning and shooting down her right shoulder where her surgery was. Denies using her right arm at time of occurrence. She stated she was walking in the kitchen, and it felt like a pop, followed by on and off lightning bolts. This occurred just prior to arrival Associated symptoms: Deny fever(s) or rash Related Data Home Medications ?Medication ?Instructions ?Recorded ?Confirmed atorvastatin 80 mg tablet 80 mg PO BEDTIME 10/23/23 08/11/24 aspirin 81 mg tablet,delayed 81 mg PO QAM 01/15/24 08/11/24 release ferrous sulfate 325 mg (65 mg 325 mg PO DAILY 01/15/24 08/11/24 iron) tablet fluticasone propionate 50 2 spray intranasal DAILY PRN 05/29/24 08/11/24 mcg/actuation nasal allergies spray,suspension magnesium oxide 400 mg (241.3 mg 400 mg PO BEDTIME 05/29/24 08/11/24 magnesium) tablet famotidine 20 mg tablet (Pepcid) 20 mg PO QPM 06/22/24 08/11/24 Previous Rx's ?Medication ?Instructions ?Recorded levothyroxine 25 mcg tablet 50 mcg (2 x 25 mcg) PO DAILY #90 08/04/23 tabs left arm sling #1 ea 09/17/23 carvedilol 12.5 mg tablet 12.5 mg PO BID #60 tabs 12/14/23 loratadine 10 mg tablet (Claritin) 10 mg PO DAILY #30 tabs 12/14/23 apixaban 5 mg tablet (Eliquis) 5 mg PO Q12H #60 tabs 12/31/23 escitalopram oxalate 10 mg tablet 10 mg PO DAILY #60 tabs 04/25/24 nifedipine 60 mg tablet,extended 60 mg PO DAILY #30 tabs 08/10/24 release meloxicam 15 mg tablet 15 mg PO DAILY #30 tabs 08/23/24 hydralazine 50 mg tablet 50 mg PO BID #60 tabs 08/26/24 hydrocodone 5 mg-acetaminophen 325 1.5 tab PO TID PRN pain 2 weeks 08/26/24 mg tablet #60 tabs lisinopril 40 mg tablet 40 mg PO DAILY #30 tabs 08/26/24 Allergies Allergy/AdvReac Type Severity Reaction Status Date / Time No Known Drug Allergies Allergy Unknown Verified 08/22/24 10:38 Review of Systems Const: Denies: fever(s) or chills ENMT: Denies: throat pain or mouth pain Resp: Denies: dyspnea or productive cough GI: Denies: abdominal pain, nausea or vomiting : Denies: flank pain Musc: Reports: extremity pain and joint pain; Denies: neck pain Skin/Breast: Denies: rash or pruritus Neuro: Denies: headache(s), numbness in extremities or sensory changes Psych: Denies: anxiety or depression PFSH ED PFSH: Medical History Anxiety Anemia Hypothyroidism Atrial fibrillation with RVR Hypotension Postoperative anemia Atrial fibrillation Right-sided lacunar infarction Severe pulmonary hypertension Diastolic heart failure On Coumadin for atrial fibrillation Elevated d-dimer Elevated troponin Dyspnea Hyponatremia Atrial fibrillation with RVR Dehydration Hyponatremia Altered mental status Subacromial impingement of left shoulder Rotator cuff tear, left Bipolar 2 disorder Diabetes Hypercholesterolemia Syncope Urgency of urination Hypertension Surgical History S/P shoulder surgery Hx of section x 3 Hx of bilateral cataract extraction H/O gastric bypass Family History Grandmother Cancer Hyperlipidemia Hypertension Mother Hypertension CAD (coronary artery disease) unknown age of onset Denies family history of Diabetes Clotting disorder Dementia Chronic kidney disease (CKD) Suicide Anesthesia complication Bleeding disorder Lung disease Stroke Social History Smoking and tobacco/nicotine status: unknown if used tobacco/nicotine Alcohol intake: never Substance/Drug Use: never Marital status: Physical Exam Const: COMMON NORMALS: no acute distress, average body habitus and patient oriented x3 HENMT: COMMON NORMALS: normocephalic HEAD & SCALP: normocephalic Eye: COMMON NORMALS: Equal, round and reactive pupils present, EOMs intact bilaterally and conjunctivae normal CONJUNCTIVA: Yes conjunctivae normal PUPIL: Yes Equal, round and reactive pupils present Neck/C-Spine: COMMON NORMALS: full ROM and no lymphadenopathy Lymph: LYMPHATIC: no lymphadenopathy noted Chest: COMMONS NORMALS: normal inspection of the chest Cardio: COMMON NORMALS: regular rate and regular rhythm RATE: regular rate RHYTHM: regular rhythm GI: COMMON NORMALS: Normal to inspection, nondistended, normoactive bowel sounds present and Soft to palpation PALPATION: Yes Soft to palpation : COMMON NORMALS: Yes no CVA tenderness BLADDER/KIDNEY EXAM: Yes no CVA tenderness Back/Pelvis: COMMON NORMALS: no CVA tenderness Extremity: COMMON NORMALS: normal to inspection, full ROM and capillary refill normal RIGHT UPPER EXTREMITY: Yes shoulder joint Right shoulder: Yes Right shoulder joint inspection exam (no notable abnormality), Yes palpation and Yes Right shoulder joint ROM exam (decreased due to pain) Neuro: COMMON NORMALS: patient oriented x3 Psych: COMMON NORMALS: mental status grossly normal and Normal thought process present THOUGHT PROCESS: Normal thought process present Course Vital Signs: Vital signs: Vital Signs Temperature 98.2 F 08/26/24 21:57 Pulse Rate 64 08/27/24 00:57 Respiratory Rate 22 H 08/26/24 21:57 Blood Pressure 141/55 08/27/24 00:57 Pulse Oximetry 100 08/27/24 00:57 Oxygen Delivery Me thod Room Air 08/26/24 23:34 MDM - Extremity (Nontraumatic) Medical Decision Making Patient is a 68-year-old female with right reverse total arthroscopy complaining of sudden onset of right shoulder pain. I do not appreciate any swelling, or palpable tenderness. There is no redness. She describes this as a shooting, lightning pain. Will give her Norflex x 1 and [place] x 1. Discussed with patient to follow-up?call for appointment with orthopedist on Thursday to see next week. X-ray is negative. All of her questions answered to her satisfaction. Lab Data Radiology Impressions Shoulder X-Ray 08/26/24 21:50 IMPRESSION: No acute abnormality. All radiology interpretation(s) finalized by discharge ED provider radiology interpretation(s): no acute Discharge Plan Discharge Patient Disposition: Home Clinical Impression: Acute pain of right shoulder Condition: Stable Prescriptions: No Action (DME) left arm sling See Rx Instructions .Route .MEDSUPPLY Qty: 1 0RF Rx Instructions: As directed Eliquis 5 mg tablet 5 mg PO Q12H Qty: 60 11RF levothyroxine 25 mcg tablet 50 mcg PO DAILY Qty: 90 11RF carvedilol 12.5 mg tablet 12.5 mg PO BID Qty: 60 11RF loratadine [Claritin] 10 mg tablet 10 mg PO DAILY Qty: 30 11RF escitalopram oxalate 10 mg tablet 10 mg PO DAILY Qty: 60 2RF nifedipine 60 mg tablet extended release 60 mg PO DAILY Qty: 30 11RF meloxicam 15 mg tablet 15 mg PO DAILY Qty: 30 0RF hydralazine 50 mg tablet 50 mg PO BID Qty: 60 11RF Rx Instructions: with stable bp hydrocodone-acetaminophen 5-325 mg tablet 1.5 tab PO TID PRN (Reason: pain) 14 Days Qty: 60 0RF lisinopril 40 mg tablet 40 mg PO DAILY Qty: 30 11RF atorvastatin 80 mg tablet 80 mg PO BEDTIME magnesium oxide 400 mg (241.3 mg magnesium) tablet 400 mg PO BEDTIME fluticasone propionate 50 mcg/actuation spray,suspension 2 spray intranasal DAILY PRN (Reason: allergies) aspirin 81 mg tablet,delayed release (DR/EC) 81 mg PO QAM ferrous sulfate 325 mg (65 mg iron) tablet 325 mg PO DAILY famotidine [Pepcid] 20 mg tablet 20 mg PO QPM Discharge Orders: Discharge ED (Routine); Ordered 08/27/24 Ordered By: Ce Rousseau Referrals: Jayjay Saldivar DO [Physician, Orthopedics] Obey Rose MD [Primary Care Provider, Family Practice] Patient Instructions: Shoulder Pain (ED), Opioid Safety, Pain Management, Patient Portal & Tim Instructions Activity Restrictions/Additional Instructions: You may ice this area, caution on opioids. Add stool softener Call your orthopedic surgeon on Thursday. You will need follow-up next week. Tylenol for pain. Avoid ibuprofen/naproxen since you are on apixaban/Eliquis Return to ED for worsening pain, fever, inability to move your arm. X-ray was negative for acute pathology Print Language: Mohawk Coding Level of Care Code ED Geophysical Observer for Mayela Jacobsen
[2024-08-27] MEDS: orphenadrine 30 mg/mL Inj 2 mL IM (00:37)
[2024-08-27] MEDS: HYDROcodone-acetaminophen 5-325 mg Tablet 1 TAB PO (00:37)
[2024-08-27 00:57] VITALS: BP 141/55; PULSE 64; O2SAT 100
== END 2024-08-27 00:59 | disposition home or self-care (01) ==
PROVIDERS: Emergency Provider Physician Assistant; PCP Family Medicine
DX: M25.511 Pain in right shoulder (principal); Z79.01 Long term (current) use of anticoagulants; Z79.82 Long term (current) use of aspirin; E11.9 Type 2 diabetes mellitus without complications; I11.0 Hypertensive heart disease with heart failure; I50.30 Unspecified diastolic (congestive) heart failure
CPT/HCPCS: 73030; 96372; 99284; J2360; J9999

== ENCOUNTER 2024-08-30 05:00 | Outpatient (RCR) | payer MEDICARE, OTHER, SELFPAY | END 2024-09-29 23:59 | disposition home or self-care (01) | LOC: SPT 05:00 | PROVIDERS: PCP Family Medicine; Visit Provider Physician Assistant | DX: Z98.890 Other specified postprocedural states (principal) | CPT/HCPCS: 97110 ==

== ENCOUNTER → 2024-09-14 13:59 | Outpatient (BNVA) | payer MEDICARE, OTHER, SELFPAY | PROVIDERS: PCP Family Medicine; Visit Provider Physician Assistant | DX: Z96.611 Presence of right artificial shoulder joint (principal) | CPT/HCPCS: 73030; 99213 ==

== ENCOUNTER → 2024-09-20 13:23 | Outpatient (BNVA) | payer MEDICARE, OTHER, SELFPAY | PROVIDERS: PCP Family Medicine; Visit Provider Family Medicine | DX: N30.00 Acute cystitis without hematuria (principal) | CPT/HCPCS: 81000; 87086 ==

== ENCOUNTER 2024-09-30 05:00 | Outpatient (RCR) | payer MEDICARE, OTHER, SELFPAY | END 2024-10-30 23:59 | disposition home or self-care (01) | LOC: SPT 05:00 | PROVIDERS: PCP Family Medicine; Visit Provider Physician Assistant | DX: Z98.890 Other specified postprocedural states (principal) | CPT/HCPCS: 97110 ==

== ENCOUNTER → 2024-10-26 12:45 | Outpatient (BNVA) | payer MEDICARE, OTHER, SELFPAY | PROVIDERS: PCP Family Medicine; Visit Provider Student in an Organized Health Care Education/Training Program | DX: Z96.611 Presence of right artificial shoulder joint (principal) | CPT/HCPCS: 73030; 99213 ==

== ENCOUNTER 2024-10-31 05:00 | Outpatient (RCR) | payer MEDICARE, OTHER, SELFPAY | END 2024-11-29 23:59 | disposition home or self-care (01) | LOC: SPT 05:00 | PROVIDERS: PCP Family Medicine; Visit Provider Physician Assistant | DX: Z47.89 Encounter for other orthopedic aftercare (principal) | CPT/HCPCS: 97110 ==

== ENCOUNTER 2024-12-12 16:14 | Emergency (ER) | payer MEDICARE, OTHER, SELFPAY ==
--- OUTSIDE RECORDS SUMMARY | 2023-08-22 04:00 | XMS_ITS ---
Author Organization [facility] Address [address] [place] [address] Care Team Providers Care Whiskey Proof Reader Name Role Phone Migration, Provider Unavailable Unavailable REASON FOR VISIT EMR-Zackary Encounters Encounter Location Date Provider Diagnosis Migrated_Facility 0 0 08/22/2023 Provider Migration Plan Of Treatment Medication Medication Name Sig Start Date Stop Date Notes Levothyroxine Sodium 0.025 M G Oral Tablet ORAL 12/26/2021 *Reorder from Fl dispan for eRx and Interaction Alerts* cetirizine hydrochloride 10 MG Oral Tablet ORAL 12/26/2021 *Reorder from Fl dispan for eRx and Interaction Alerts* Progress Notes * RODRIGUEZ SWAN DDOB: [birth year] (69 yo F)Acc No.[id number]:08/22/2023 Patient: Mulu RODRIGUEZ ROMAN :1955 A ge:67 Y S ex:Female Address:[address], [place], [address] * Refills Stop cetirizine hydrochloride 10 MG Oral Tablet, ORAL Stop Levothyroxine Sodium 0.025 MG Oral Tablet, ORAL Subjective: * Chief Complaints: * E MR-Zackary * * Date:
--- OUTSIDE RECORDS SUMMARY | 2023-08-23 04:00 | XMS_ITS ---
Author Organization [facility] Address [address] [place] [address] Care Team Providers Care Refresh Technician Name Role Phone Migration, Provider Unavailable Unavailable Allergies Allergen (clinical drug ingredient) Drug/Non Drug Allergy documented on EMR Reaction Allergy Type Onset Date Status hydroxyzine Hydroxyzine Unknown Drug Allergy 12/26/2021 ac tive Iodinated contrast media (substance) Iodinated Diagnostic Agents Unknown Drug Allergy 12/26/2021 active REASON FOR VISIT EMR-Zackary Medications Medication SIG (Take, Route, Frequency, Duration) Notes Start Date End Date Status ALPRAZolam 1 MG Oral Tablet ORAL *Reorder from [facility] for eRx and Interaction Alerts* 12/26/2021 Active Chlorthalidone 25 MG Oral Tablet ORAL *Reorder from [facility] for eRx and Interaction Alerts* 12/26/2021 Active Carvedilol 25 MG Oral Tablet ORAL *Reorder from [facility] for eRx and Interaction Alerts* 12/26/2021 Active Simvastatin 20 MG Oral Tablet ORAL *Reorder from [facility] for eRx and Interaction Alerts* 12/26/2021 Active calcium carbonate 1250 MG / cholecalciferol 0.01 MG Oral Tablet ORAL *Reorder from [facility] for eRx and Interaction Alerts* 12/26/2021 Active Lisinopril 20 MG Tablet Oral 12/26/2021 Active Solifenacin Succinate 10 MG Tablet Oral 02/06/2022 02/01/2023 Active Solifenacin Succinate 5 MG Tablet Oral 02/10/2022 06/10/2022 Active quetiapine 100 MG Oral Tablet ORAL *Reorder from [facility] for eRx and Interaction Alerts* 12/26/2021 Active Spironolactone 25 MG Oral Tablet ORAL *Reorder from [facility] for eRx and Interaction Alerts* 12/26/2021 Active Social History Social History Additional Details Category Social Info Options Details Migrated Social History Migrated Social History Smoking Status : Former tobacco user , History of tobacco use : Encounters Encounter Location Date Provider Diagnosis Migrated_Facility 0 0 08/23/2023 Provider Migration Plan Of Treatment No Information Progress Notes * RODRIGUEZ SWAN DDOB: [birth year] (69 yo F)Acc No.[id number]:08/23/2023 Patient: RODRIGUEZ MALIN :1955 A ge:67 Y S ex:Female Address:[address] [place] [address], [id number] Subjective: * Chief Complaints: * E MR-Zackary * Family History: F ather: PRN - Father: :: of unknown cause,,known absent . M other: PRN - Mother: .? * Social History: M igrated Social History: M igrated Social History: Smoking Status : Former tobacco user , History of tobacco use :. * Medications: T akingLisinopril 20 MG Tablet Oral Solifenacin Succinate 10 MG Tablet Oral , stop date 02/01/2023Solifenacin Succinate 5 MG Tablet Oral , stop date 06/10/2022quetiapine 100 MG Oral Tablet ORAL , Notes to Pharmacist: *Reorder from [facility] for eRx and Interaction Alerts*Spironolactone 25 MG Oral Tablet ORAL , Notes to Pharmacist: *[facility]*ALPRAZolam 1 MG Oral Tablet ORAL , Notes to Pharmacist: *[facility] and Interaction Alerts*Chlorthalidone 25 MG Oral Tablet ORAL , Notes to Pharmacist: *Reorder from [facility] for [facility] and Interaction Alerts*Carvedilol 25 MG Oral Tablet ORAL , Notes to Pharmacist: *Reorder from [facility] for [facility] and Interaction Alerts*Simvastatin 20 MG Oral Tablet ORAL , Notes to Pharmacist: *Reorder from [facility] for [facility] and Interaction Alerts*calcium carbonate 1250 MG / cholecalciferol 0.01 MG Oral Tablet ORAL , Notes to Pharmacist: *Reorder from [facility] for eRx and Interaction Alerts*Taking Lisinopril 20 MG Tablet Oral Taking Solifenacin Succinate 10 MG Tablet Oral , stop date 02/01/2023Taking Solifenacin Succinate 5 MG Tablet Oral , stop date 06/10/2022Taking quetiapine 100 MG Oral Tablet ORAL , Notes to Pharmacist: *Reorder from [facility] for eRx and Interaction Alerts*Taking Spironolactone 25 MG Oral Tablet ORAL , Notes to Pharmacist: *Reorder from [facility] for eRx and Interaction Alerts*Taking ALPRAZolam 1 MG Oral Tablet ORAL , Notes to Pharmacist: *Reorder from [facility] for eRx and Interaction Alerts*Taking Chlorthalidone 25 MG Oral Tablet ORAL , Notes to Pharmacist: *Reorder from [facility] for eRx and Interaction Alerts*Taking Carvedilol 25 MG Oral Tablet ORAL , Notes to Pharmacist: *Reorder from [facility] for eRx and Interaction Alerts*Taking Simvastatin 20 MG Oral Tablet ORAL , Notes to Pharmacist: *Reorder from [facility] for eRx and Interaction Alerts*Taking calcium carbonate 1250 MG / cholecalciferol 0.01 MG Oral Tablet ORAL , Notes to Pharmacist: *Reorder from [facility] for eRx and Interaction Alerts* * Allergies: I odinated Diagnostic Agents: Allergy - Onset Date 12/26/2021Hydroxyzine: Allergy - Onset Date 12/26/2021 * * Date:
--- OUTSIDE RECORDS SUMMARY | 2023-12-24 12:00 | XMS_ITS ---
Author Organization [facility] Address [address] [place] [address] Care Team Providers Care Director Pharmacology Name Role Phone Obey Rose Primary Care Provider STEPHEN Pina Unavailable [phone] WHITNEY DIOP [phone] REASON FOR VISIT Pt cx/ will call back to rs--- 3 mo w/ ua/pvr Encounters Encounter Location Date Provider Diagnosis [email or web address] [address] [place] [address] 12/24/2023 WHITNEY DIOP Plan Of Treatment Next Appt Details Provider Name:STEPHEN Wood, 12/13/2024 09:00:00 AM, [address] [place], [address], Progress Notes * Trish SWAN DDOB: [birth year] (69 yo F)Acc No.[id number]:12/24/2023 Progress Notes Patient: Trish MALIN Provider: Sharla Diop APRN :1955 A ge:68 Y S ex:Female Date:12/24/2023 Address:[address], [place], [id number] Pcp:Obey Rose Subjective: * Chief Complaints: * 1 . Pt cx/ will call back to rs--- 3 mo w/ ua/pvr. * Medical History: Objective: * Vitals: Assessment: Plan: * Treatment: * Billing Information: * Visit Code: * Procedure Codes: * Electronic signature of ANNELIESE DIOP APRN on 12/12/2024 at 04:40 PM CDT Sign off status: Pending * Provider: Sharla Diop APRN Date: Generated for Breezy Wyman on: 04:40 PM CDT
--- OUTSIDE RECORDS SUMMARY | 2024-12-02 03:00 | XMS_ITS ---
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 Name Role Phone Obey Rose Primary Care Provider STEPHEN Pina [phone] REASON FOR VISIT Botox (100 units) @ [facility] Encounters Encounter Location Date Provider Diagnosis [facility] [address] [facility] [place] [address] 12/02/2024 STEPHEN SARMIENTO Plan Of Treatment Next Appt Details Provider Name:STEPHEN Farah ADONISZhanna Nina, 12/13/2024 09:00:00 AM, [address] [place], [address], Progress Notes * Trish SWAN DDOB: [birth year] (69 yo F)Acc No.[id number]:12/02/2024 Patient: Trish MALIN Provider: Sahara SARMIENTO MD :1955 A ge:69 Y S ex:Female Date:12/02/2024 Address:[address], [place], [id number] Pcp:Obey Rsoe * Billing Information: * Visit Code: * Procedure Codes: * Electronic signature of AUST IN MD GUILLERMINA on 12/12/2024 at 04:40 PM CDT Sign off status: Pending * Provider: Sahara SARMIENTO MD Date: 1 Generated for Breezy lopez/Darling/Madhuri on: 1 04:40 PM CDT
--- NOTE | 2024-12-12 16:16 | XRR_ITS ---
PROCEDURE INFORMATION: Exam: XR Chest Exam date and time: 12/12/2024 4:59 PM Age: 69 years old Clinical indication: Other: Hypertension; Prior surgery; Surgery date: 6+ months; Surgery type: Bilateral shoulder replacements TECHNIQUE: Imaging protocol: Radiologic exam of the chest. Views: 1 view. COMPARISON: CT angio headneck* [id number] 05/06/2024 11:10 PM FINDINGS: Lungs: Lung volumes are within normal limits. Lucent appearance within the right and left lung may correspond to some degree of underlying COPD change. No airspace consolidation suspicious for a pneumonia. No CHF. Pleural spaces: No large pleural effusion. No pneumothorax. Heart/Mediastinum: Heart size within normal limits. The mediastinal contours are smooth. Vasculature: Atherosclerotic plaque at the aortic arch. Bones/joints: Multilevel degenerative changes are present throughout the spine. Patient is status post prior bilateral shoulder arthroplasty. Other findings: Postsurgical changes are present within the midepigastric region. XR/XR chest 1V portable [id number] IMPRESSION: No acute findings within the chest.
[2024-12-12 16:19] VITALS: BP 187/90; RESP 16; O2SAT 97
--- NOTE | 2024-12-12 16:28 | CTR_ITS ---
PROCEDURE INFORMATION: Exam: CT Head Without Contrast Exam date and time: 12/12/2024 4:31 PM Age: 69 years old Clinical indication: Stroke-like symptoms; Altered mental status/memory loss; Additional info: Symptoms of acute stroke TECHNIQUE: Imaging protocol: Computed tomography of the head without contrast. Radiation optimization: All CT scans at this facility use at least one of these dose optimization techniques: automated exposure control; mA and/or kV adjustment per patient size (includes targeted exams where dose is matched to clinical indication); or iterative reconstruction. Other technique: STROKE PROTOCOL was implemented. COMPARISON: CT angio headneck* [id number] 05/06/2024 11:10 PM RADIATION DOSE METRICS: Total DLP (mGy-cm): 1006.38 FINDINGS: Brain: No intraparenchymal hemorrhage. No subdural or epidural hematoma or fluid collection. No evidence of a new large territorial infarct. Mild decreased density within the periventricular deep white matter. These changes are nonspecific and more in keeping with areas of chronic microvascular ischemic change. Bonilla-white matter differentiation is otherwise maintained. Cerebral ventricles: Mild prominence of the ventricular and sulcal pattern in keeping with mild volume loss. Findings are unchanged. Ventricles are midline in position. No mass effect or midline shift. Paranasal sinuses: Visualized portion of the paranasal sinuses are clear. Mastoid air cells: Mastoid air cells are clear. Bones: Calvarium is intact. No depressed or displaced skull fracture. Mild hyperostosis frontalis. Soft tissues: Unremarkable. Vasculature: No hyperdense MCA sign. Atherosclerotic plaque along the intracranial segment of the right and left internal carotid artery. Minimal atherosclerotic plaque along the intracranial segment of the left vertebral artery. CT/CT head thrombolytic [id number] IMPRESSION: No intraparenchymal hemorrhage. No subdural or epidural hematoma or fluid collection. No acute infarct identified. If there remains high clinical concern for acute ischemia, follow-up MRI of the brain could be considered. ASSESSMENT: ASPECTS ([place] Stroke Program Early CT Score) is 10.
--- NOTE | 2024-12-12 16:29 | ECG_ITS ---
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 Measurements Intervals [place] Rate: 68 P: 63 IL: 153 QRS: 68 QRSD: 85 T: 53 QT: 410 QTc: 439 Interpretive Statements SINUS RHYTHM Compared to ECG 05/29/2024 17:25:29 No significant changes Electronically Signed On 12-14-2024 21:30:36 CDT by Varinder Walters M.D. [email or web address]
--- NOTE | 2024-12-12 16:29 | W.ED.NEUROSD ---
HPI - Neuro Symptoms/Deficit General: Chief Complaint: General Medical Stated Complaint: High BP Time Seen by Provider: 12/12/24 16:25 History of Present Illness: 69-year-old female with history of hypertension, anxiety, anemia, hypothyroidism, A-fib, chronic anticoagulation on Eliquis, (however this has been held for an upcoming procedure sick for about 4 days now.) chronic pain syndrome on chronic hydrocodone therapy, diabetes, hyper lipidemia and bipolar disorder who presents to the emergency room with neurologic complaints. She said she started checking her blood pressure and it kept going up and up. He said it got into the upper 200s at 1 point. No focal motor deficits but she appears quite anxious on presentation and said she was unsteady on her feet. NIH of 0. Last known well time was at least 3 hours ago according to . He had been outside mowing. No chest pain. No fevers no abdominal pain. Related Data Home Medications ?Medication ?Instructions ?Recorded ?Confirmed fluticasone propionate 50 2 spray intranasal DAILY PRN 05/29/24 12/01/24 mcg/actuation nasal allergies spray,suspension calcium 600 mg (as tab PO 09/14/24 12/01/24 carbonate)-vitamin D3 10 mcg (400 unit) tablet Previous Rx's ?Medication ?Instructions ?Recorded levothyroxine 25 mcg tablet 50 mcg (2 x 25 mcg) PO DAILY #90 08/04/23 tabs left arm sling #1 ea 09/17/23 loratadine 10 mg tablet (Claritin) 10 mg PO DAILY #30 tabs 12/14/23 escitalopram oxalate 10 mg tablet 10 mg PO DAILY #60 tabs 04/25/24 nifedipine 60 mg tablet,extended 60 mg PO DAILY #30 tabs 08/10/24 release meloxicam 15 mg tablet 15 mg PO DAILY #30 tabs 08/23/24 hydralazine 50 mg tablet 50 mg PO BID #60 tabs 08/26/24 lisinopril 40 mg tablet 40 mg PO DAILY #30 tabs 08/26/24 atorvastatin 40 mg tablet (Lipitor) 40 mg PO DAILY #90 tabs 10/18/24 ferrous sulfate 325 mg (65 mg 325 mg PO DAILY #90 tabs 10/18/24 iron) tablet methocarbamol 500 mg tablet 500 mg PO TID PRN muscle spasm 7 11/16/24 days #21 tabs magnesium oxide 400 mg (241.3 mg See Rx Instructions .Route 11/21/24 magnesium) tablet .COMPLEX #180 tabs famotidine 20 mg tablet See Rx Instructions .Route 11/25/24 .COMPLEX #60 tabs hydrocodone 5 mg-acetaminophen 325 1 tab PO BID PRN pain 1 month #60 12/01/24 mg tablet tabs risperidone 0.5 mg tablet 0.5 mg PO .QHS #30 tabs 12/01/24 (Risperdal) apixaban 2.5 mg tablet (Eliquis) 2.5 mg PO BID #60 tabs 12/02/24 carvedilol 12.5 mg tablet 12.5 mg PO BID #60 tabs 12/04/24 Allergies Allergy/AdvReac Type Severity Reaction Status Date / Time trazodone Allergy anxious Verified 12/01/24 12:54 Review of Systems Narrative: Constitutional symptoms: Negative except as documented in HPI. Skin symptoms: Negative except as documented in HPI. Eye symptoms: Negative except as documented in HPI. ENMT symptoms: Negative except as documented in HPI. Respiratory symptoms: Negative except as documented in HPI. Cardiovascular symptoms: Negative except as documented in HPI. Gastrointestinal symptoms: Negative except as documented in HPI. Genitourinary symptoms: Negative except as documented in HPI. Musculoskeletal symptoms: Negative except as documented in HPI. Neurologic symptoms: Negative except as documented in HPI. Psychiatric symptoms: Negative except as documented in HPI. Endocrine symptoms: Negative except as documented in HPI. PFS ED PFSH: Medical History (Updated 12/12/24 @ 18:21 by Frida Mcconnell MD) Anxiety Anemia Hypothyroidism Atrial fibrillation with RVR Hypotension Postoperative anemia Atrial fibrillation Right-sided lacunar infarction Severe pulmonary hypertension Diastolic heart failure On Coumadin for atrial fibrillation Elevated d-dimer Elevated troponin Dyspnea Hyponatremia Atrial fibrillation with RVR Dehydration Hyponatremia Altered mental status Subacromial impingement of left shoulder Rotator cuff tear, left Bipolar 2 disorder Diabetes Hypercholesterolemia Syncope Urgency of urination Hypertension Surgical History S/P shoulder surgery Hx of section x 3 Hx of bilateral cataract extraction H/O gastric bypass Family History Grandmother Cancer Hyperlipidemia Hypertension Mother Hypertension CAD (coronary artery disease) unknown age of onset Denies family history of Diabetes Clotting disorder Dementia Chronic kidney disease (CKD) Suicide Anesthesia complication Bleeding disorder Lung disease Stroke Social History Smoking and tobacco/nicotine status: never used tobacco/nicotine Alcohol intake: never Substance/Drug Use: never Marital status: Physical Exam Narrative: EXAM NARRATIVE: General: Alert, no acute distress. Skin: Warm, dry. Head: Normocephalic, atraumatic. Neck: Supple, trachea midline. Eye: Extraocular movements are intact. Ears, nose, mouth and throat: mucosa moist. Cardiovascular: Regular, Normal peripheral perfusion. Respiratory: Lungs are clear to auscultation, respirations are non-labored, breath sounds are equal, Symmetrical chest wall expansion. Gastrointestinal: Soft, Nontender, Non distended Musculoskeletal: Normal ROM, no deformity. Neurological: Alert and oriented, No focal neurological deficit observed. Psychiatric: Cooperative, patient appears extremely anxious and tremulous Course Vital Signs: Vital signs: Vital Signs Pulse Rate 57 L 12/12/24 19:02 Respiratory Rate 17 12/12/24 19:02 Blood Pressure 150/80 12/12/24 19:02 Pulse Oximetry 98 12/12/24 19:02 Oxygen Delivery Me thod Room Air 12/12/24 16:19 MDM - Neuro Symptoms/Deficit Medical Decision Making Medical decision making: Differential diagnosis for patient with focal neurologic deficit(s) includes but not limited to and based on the above HPI, review of systems and physical exam: ischemic stroke, hemorrhagic stroke and embolic stroke secondary to atrial fibrillation), TIA, Patel's palsey, metabolic encephalopathy with previous stroke. Orders placed to evaluate differential diagnosis based on the above differential, HPI and physical exam NIH Stroke Scale/Score (NIHSS) from [email or web address] on 12/12/2024 All calculations should be rechecked by clinician prior to use RESULT SUMMARY: 0 points NIH Stroke Scale INPUTS: 1A: Level of consciousness ?> 0 = Alert; keenly responsive 1B: Ask month and age ?> 0 = Both questions right 1C: 'Blink eyes' & 'squeeze hands' ?> 0 = Performs both tasks 2: Horizontal extraocular movements ?> 0 = Normal 3: Visual hector ?> 0 = No visual loss 4: Facial palsy ?> 0 = Normal symmetry 5A: Left arm motor drift ?> 0 = No drift for 10 seconds 5B: Right arm motor drift ?> 0 = No drift for 10 seconds 6A: Left leg motor drift ?> 0 = No drift for 5 seconds 6B: Right leg motor drift ?> 0 = No drift for 5 seconds 7: Limb Ataxia ?> 0 = No ataxia 8: Sensation ?> 0 = Normal; no sensory loss 9: Language/aphasia ?> 0 = Normal; no aphasia 10: Dysarthria ?> 0 = Normal 11: Extinction/inattention ?> 0 = No abnormality CT head: No acute intracranial process. No intracranial hemorrhage, no evidence of infarct. No evidence of acute fracture. This was reviewed and interpreted by myself the emergency room physician. I also reviewed the radiology report. Chest x-ray: No acute process. No infiltrate. No pneumothorax. This was reviewed and interpreted by myself the emergency room physician. I also reviewed the radiology report. EKG: Time 1629. Rate 68. Normal sinus rhythm, No ST-T changes, no ectopy, normal AR & QRS intervals, This was reviewed and interpreted by myself the ER physician at 1634 Repeat EKG: Time 1759. Rate 56. Sinus bradycardia, No ST-T changes, no ectopy, normal AR & QRS intervals, This was reviewed and interpreted by myself the ER physician at 1805. Rate has decreased about 12 bpm and she now has some sinus bradycardia Lab Review: Laboratory results were reviewed and interpreted by myself the emergency room physician. No leukocytosis. No anemia. No renal failure. Drug screen is positive for opiates but negative for benzos. Urinalysis negative for infection. I reviewed the patient's medical record. 69-year-old female with history of hypertension, anxiety, anemia, hypothyroidism, A-fib, chronic anticoagulation on Eliquis, (however this has been held for an upcoming procedure sick for about 4 days now.) chronic pain syndrome on chronic hydrocodone therapy, diabetes, hyper lipidemia and bipolar disorder. Reviewed prescription monitoring program. She is on hydrocodone. Reexamination: Patient still appears somewhat anxious but is improved somewhat. We discussed that I thought this was anxiety and she said she was on Xanax up until about a year ago and she has been more anxious. She says she is always a bit hyperactive. No increased work of breathing. No focal motor deficits. Blood pressure has come down. Assessment and plan: Anxiety attack Accelerated hypertension ?Blood pressure has improved with Ativan. - Discharged home - Discussed plan with patient. Answered any questions. - Evaluation and treatment of this problem were appropriate in the emergency setting. Lab Data 12/12/24 16:43 12/12/24 16:43 Radiology Impressions Chest X-Ray 12/12/24 16:16 IMPRESSION: No acute findings within the chest. Head CT 12/12/24 16:28 IMPRESSION: No intraparenchymal hemorrhage. No subdural or epidural hematoma or fluid collection. No acute infarct identified. If there remains high clinical concern for acute ischemia, follow-up MRI of the brain could be considered. ASSESSMENT: ASPECTS ([place] Stroke Program Early CT Score) is 10. ADDENDUM: 12/12/24 1703 COMMENT: THIS REPORT CONTAINS FINDINGS THAT MAY BE CRITICAL TO PATIENT CARE. The exam findings were verbally communicated by me to FRIDA MCCONNELL via telephone conference at 5:01 PM CDT on 12/12/2024. The findings were acknowledged and understood. Laboratory Results WBC 7.91 10^3/uL (3.29-11.43) 12/12/24 16:43 RBC 3.93 10^6/uL (3.85-5.65) 12/12/24 16:43 Hgb 10.80 g/dL (11.27-16.99) L 12/12/24 16:43 Hct 34.1 % (36-47) L 12/12/24 16:43 MCV 86.8 fl (85-98) 12/12/24 16:43 MCH 27.5 pg (27-33) 12/12/24 16:43 MCHC 31.7 g/dL (30-55) 12/12/24 16:43 RDW 14.3 % (12.1-15.1) 12/12/24 16:43 Plt Count 352 10^3/cmm (157-399) 12/12/24 16:43 MPV 9.1 fL (7.4-10.4) 12/12/24 16:43 Neut % (Auto) 56.0 % 12/12/24 16:43 Lymph % (Auto) 30.2 % 12/12/24 16:43 [place] % (Auto) 12.5 % 12/12/24 16:43 Eos % (Auto) 1.1 % 12/12/24 16:43 Baso % (Auto) 0.1 % 12/12/24 16:43 Neut # (Auto) 4.42 10^3/uL (1.8-7.7) 12/12/24 16:43 Lymph # (Auto) 2.4 10^3/uL (0.8-4.8) 12/12/24 16:43 [place] # (Auto) 1.0 10^3/uL (0.2-0.9) H 12/12/24 16:43 Eos # (Auto) 0.1 10^3/uL (0.0-0.8) 12/12/24 16:43 Baso # (Auto) 0.0 10^3/uL (0.0-0.1) 12/12/24 16:43 Nucleated RBC % (auto) 0 % 12/12/24 16:43 Nucleated RBCs # 0.0 /100WBC 12/12/24 16:43 PT 13.00 SECONDS (12.1-14.9) 12/12/24 16:43 INR 0.92 (0.8-1.2) 12/12/24 16:43 APTT 30.2 SECONDS (23.9-36.7) 12/12/24 16:43 Specimen Type Arterial 12/12/24 16:45 Sample Site Brachial, left 12/12/24 16:45 ABG pH 7.44 (7.35-7.45) 12/12/24 16:45 ABG pCO2 39.0 mmHg (35-45) 12/12/24 16:45 ABG pO2 90.3 mmHg (80.0-100.0) 12/12/24 16:45 ABG PO2/FiO2 Ratio 430 12/12/24 16:45 ABG HCO3 26.3 mmol/L (22-26) H 12/12/24 16:45 ABG O2 Saturation 97.8 12/12/24 16:45 ABG Base Excess 2.0 mmol/L (-2.0-2.0) 12/12/24 16:45 Gucci Test N/a 12/12/24 16:45 A-a O2 Gradient 1.4 mmHg (5-10) L 12/12/24 16:45 Hematocrit 33.3 % (37-47) L 12/12/24 16:45 Hgb O2 Saturation 96.2 % (95-100) 12/12/24 16:45 Carboxyhemoglobin 0.6 %THgb (0.4-20.1) 12/12/24 16:45 Methemoglobin 1.0 % (0.4-1.5) 12/12/24 16:45 Total Hemoglobin 10.9 g/dL (12-16) L 12/12/24 16:45 Sodium 136.0 mmol/L (131-143) 12/12/24 16:45 Potassium 3.9 mmol/L (3.5-5.0) 12/12/24 16:45 Glucose 106.0 mg/dL (70-115) 12/12/24 16:45 Ionized Calcium 1.2 mmol/L (1.1-1.4) 12/12/24 16:45 O2 Delivery Device Room air 12/12/24 16:45 FiO2 21.0 % 12/12/24 16:45 Manufacturing Quality Manager ID Amh 12/12/24 16:45 Sodium 135 mmol/L (136-145) L 12/12/24 16:43 Potassium 4.5 mmol/L (3.5-5.1) 12/12/24 16:43 Chloride 99 mmol/L (98-107) 12/12/24 16:43 Carbon Dioxide 23 mmol/L (22-29) 12/12/24 16:43 Anion Gap 17.5 (5-19) 12/12/24 16:43 BUN 16 mg/dL (8-23) 12/12/24 16:43 Creatinine 0.7 mg/dL (0.5-0.9) 12/12/24 16:43 GFR Calculation 83.2 mL/min (90-130) L 12/12/24 16:43 Glucose 105 mg/dL (65-115) 12/12/24 16:43 POC Glucose 120 mg/dL (70-110) H 12/12/24 16:28 Calculated Osmolality 282 mOsm/kg (285-295) L 12/12/24 16:43 Calcium 9.2 mg/dL (8.5-10.5) 12/12/24 16:43 Total Bilirubin 0.4 mg/dL (0.15-1.2) 12/12/24 16:43 AST 17 U/L (0-32) 12/12/24 16:43 ALT 8 U/L (0-33) 12/12/24 16:43 Alkaline Phosphatase 67 U/L (35-105) 12/12/24 16:43 Troponin T Baseline 8 ng/L (0-10) 12/12/24 16:43 NT-Pro-B Natriuret Pep 1327 pg/mL (0-125) H 12/12/24 16:43 Total Protein 7.3 g/dL (6.6-8.7) 12/12/24 16:43 Albumin 4.4 g/dL (3.5-5.2) 12/12/24 16:43 Globulin 2.9 g/dL (1.3-4.6) 12/12/24 16:43 Urine Color Yellow (Yellow) 12/12/24 17:51 Urine Appearance Clear (CLEAR) 12/12/24 17:51 Urine pH 6.5 (5-7) 12/12/24 17:51 Ur Specific [place] 1.012 (1.005-1.030) 12/12/24 17:51 Urine Protein Negative (Negative) 12/12/24 17:51 Urine Glucose (UA) Negative (Normal) 12/12/24 17:51 Urine Ketones Negative (Negative) 12/12/24 17:51 Urine Blood Negative (Negative) 12/12/24 17:51 Urine Nitrate Negative (Negative) 12/12/24 17:51 Urine Bilirubin Negative (Negative) 12/12/24 17:51 Urine Urobilinogen 0.2 mg/dL (Negative) 12/12/24 17:51 Ur Leukocyte Esterase Negative (Negative) 12/12/24 17:51 Amorphous Sediment Not Reportable 12/12/24 17:51 Urine Opiates Screen Positive ng/mL (Negative) H 12/12/24 17:51 Ur Barbiturates Screen Negative ng/mL (Negative) 12/12/24 17:51 Ur Phencyclidine Scrn Negative ng/mL (Negative) 12/12/24 17:51 Ur Amphetamines Screen Negative ng/mL (Negative) 12/12/24 17:51 U Benzodiazepines Scrn Negative ng/mL (Negative) 12/12/24 17:51 Urine Cocaine Screen Negative ng/mL (Negative) 12/12/24 17:51 U Marijuana (THC) Screen Negative ng/mL (Negative) 12/12/24 17:51 All radiology interpretation(s) finalized by discharge Discharge Plan Discharge Patient Disposition: Home Clinical Impression: Panic attack, Accelerated hypertension Condition: Stable Prescriptions: No Action risperidone [Risperdal] 0.5 mg tablet 0.5 mg PO .QHS Qty: 30 11RF hydrocodone-acetaminophen 5-325 mg tablet 1 tab PO BID PRN (Reason: pain) 30 Days Qty: 60 0RF (DME) left arm sling See Rx Instructions .Route .MEDSUPPLY Qty: 1 0RF Rx Instructions: As directed calcium carbonate-vitamin D3 600 mg-10 mcg (400 unit) tablet PO atorvastatin [Lipitor] 40 mg tablet 40 mg PO DAILY Qty: 90 3RF ferrous sulfate 325 mg (65 mg iron) tablet 325 mg PO DAILY Qty: 90 3RF levothyroxine 25 mcg tablet 50 mcg PO DAILY Qty: 90 11RF loratadine [Claritin] 10 mg tablet 10 mg PO DAILY Qty: 30 11RF escitalopram oxalate 10 mg tablet 10 mg PO DAILY Qty: 60 2RF nifedipine 60 mg tablet extended release 60 mg PO DAILY Qty: 30 11RF meloxicam 15 mg tablet 15 mg PO DAILY Qty: 30 0RF hydralazine 50 mg tablet 50 mg PO BID Qty: 60 11RF Rx Instructions: with stable bp lisinopril 40 mg tablet 40 mg PO DAILY Qty: 30 11RF methocarbamol 500 mg tablet 500 mg PO TID PRN (Reason: muscle spasm) 7 Days Qty: 21 1RF magnesium oxide 400 mg (241.3 mg magnesium) tablet See Rx Instructions .ROUTE .COMPLEX Qty: 180 11RF Dose Instruction: TAKE 1 TABLET BY MOUTH DAILY Rx Instructions: TAKE 1 TABLET BY MOUTH DAILY famotidine 20 mg tablet See Rx Instructions .ROUTE .COMPLEX Qty: 60 8RF Dose Instruction: TAKE 1 TABLET BY MOUTH TWICE DAILY Rx Instructions: TAKE 1 TABLET BY MOUTH TWICE DAILY Eliquis 2.5 mg tablet 2.5 mg PO BID Qty: 60 1RF carvedilol 12.5 mg tablet 12.5 mg PO BID Qty: 60 11RF fluticasone propionate 50 mcg/actuation spray,suspension 2 spray intranasal DAILY PRN (Reason: allergies) Discharge Orders: Discharge ED (Routine); Ordered 12/12/24 Ordered By: Frida Mcconnell Referrals: Obey Rose MD [Primary Care Provider, Family Practice] Discharge Diet: Usual diet Discharge Activity: Increase activity as tolerated Patient Instructions: Hypertension (ED), Panic Attack (ED), Opioid Safety, Pain Management, Patient Portal & Tim Instructions Activity Restrictions/Additional Instructions: Thank you for choosing [facility] for your healthcare needs today. You have been screened and evaluated and felt safe for discharge. Health conditions do change or evolve sometimes and as such it is important that you follow up with your Primary Doctor to be re checked, 3-5 days is a general good time frame for follow up. You are always welcome to return to the ED for re assessment if your symptoms are worsening or you have new concerns Print Language: Macedonian Coding Level of Care Code ED Residential Program Coordinator for Mayela Jacobsen
--- OUTSIDE RECORDS SUMMARY | 2024-12-12 16:40 | XMS_ITS | Clinical Summary ---
Author Organization [facility] Address [address] [address] Care Team Providers Care Web Coordinator Name Role Phone Johnie Tijerina DO Primary Care Provider [phone] Allergies No known active allergies Medications ALPRAZolam (XANAX) 1 mg tablet 1 mg 1 time daily as needed. 05/24/2015 Active levothyroxine 50 mcg tablet 50 mcg daily. 05/07/2015 A ctive simvastatin (ZOCOR) 20 mg tablet 20 mg daily. 05/21/2015 Active traMADol (ULTRAM) 50 mg tablet 50 mg 1 time daily as needed. 05/21/2015 Active valsartan-[place] chlorothiazide (DIOVAN HCT) 320-25 mg tablet 0.5 [...] S/P laparoscopic sleeve gastrectomy - 10/31/2015 11/13/2015 [place] ulcerative colitis 10/02/2015 Colitis 08/20/2015 Morbid obesity [...] on file Legal Sex Female 5:02 AM [employer] PUBL[employer] Gender Identity Not on file Sexual Orientation Not on file Last Filed Vital Signs Vital Sign Reading Time Taken Comments Blood Pressure 137/48 02/21/2020 11:02 AM [employer] PUBL[employer]ING [employer]OCIATE Pulse 50 02/21/2020 11:02 AM [employer] PUBL[employer]ING [employer]IATE Temperature 37.1 C (98.8 F) 02/21/2020 9:14 AM [employer] PUBL[employer]ING [employer]OCIATE Respiratory Rate 20 02/21/2020 11:02 AM [employer] PUBL[employer]ING [employer]OCIATE Oxygen Saturation 100% 02/21/2020 11:02 AM [employer] PUBL[employer]ING [employer]OCIATE Inhaled Oxygen Concentration - - Weight 80.7 kg (178 lb) 02/13/2020 12:15 PM [employer] PUBL[employer]ING [employer]IATE Height 154.9 cm (5' 1 ) 02/13/2020 12:15 PM [employer] PUBL[employer]ING [employer]IATE Body Mass Index 33.63 02/13/2020 12:15 PM [employer] PUBL[employer]ING [employer]OCIATE Plan of Treatment Health Maintenance Due Date [...] Colorectal Cancer Screening 02/20/2022 INFLUENZA VACCINE (#1) 2024 12/31/2015 Procedures Procedure Name Priority Date/Time Associated Diagnosis Comments COLONOSCOPY REPORT 02/21/2020 10 :32 AM [employer] PUBL[employer]ING ASSOCIATE HEMOGLOBIN A1C Routine 11/01/2015 5:40 AM CDT from Last 3 Months or Most Recently Relevant to Health Maintenance Results * COLONOSCOPY REPORT (02/21/2020 10:32 AM [employer] PUBLISHING ASSOCIATE) Narrative Procedure Note Marcell Small MD - 02/21/2020 10:31 AM CST [facility] GI Patient Name: Trish Rocha Procedure Date: [...] satisfactory condition to undergo the procedure. - [place] Protocol: - Pre-procedure Verification: Prior to the [...] In: 10:16:57 AM Scope Out: 10:28:32 AM [address] [place], [place] Marcell Small MD GI PROCEDURE ORDERABL ES Final Result * (ABNORMAL) HEMOGLOBIN A1C (11/01/2015 5:40 AM CDT) HEMOGLOBIN A1C 6.2(H) 4.0 - 6.0 % 11/01/2015 11:37 AM CDT [facility] [employer] [facility] EST. AVG GLUCOSE, A1C 131 mg/dL 11/01/2015 11:37 AM CDT [facility] Blood Venipuncture - L ab Collect / Unknown 11/01/2015 5:40 AM CDT 11/01/2015 5:59 AM CDT Narrative [facility] - 11/01/2015 11:37 AM CDT Test performed on [employer] instrumentation using HPLC methodology us David Joyner MD CHEMISTRY ORDERABLES Fi nal Result [facility] CLIA# [id number] [place] [address] from Last 3 Months or Most Recently Relevant to Health Maintenance Insurance MEDICARE PART A AND B [facility] MEDICARE PART A AND B [facility] Advance Directives For more information, please contact: [phone] * Full Code (Latest Code Status on File) Date Activated Date Inactivated Comments 08/13/2017 9:16 AM 08/13/2017 12:38 PM * Full Code Date Activated Date Inactivated Comments 10/31/2015 10:52 AM 11/01/2015 7:35 PM * Full Code Date Activated Date Inactivated Comments 10/31/2015 5:22 AM 10/31/2015 10:52 AM * Full Code Date Activated Date Inactivated Comments 08/22/2015 10:46 AM 08/22/2015 2:11 PM Care Teams Web Coordinator Relationship Specialty Start Date End Date Johnie Tijerina DO PCP - General Family Practice 05/24/15
--- OUTSIDE RECORDS SUMMARY | 2024-12-12 16:40 | XMS_ITS | Patient Health Record ---
Author Organization [facility] Address [address] [place] [address] Care Team Providers Care Crm Architect Name Role Phone Obey Rose Primary Care Provider SETPHEN Pina Unavailable [phone] CHIKISWHITNEY SUH Unavailable [phone] Allergies No Known Allergies Results Component Value Reference Range Notes CBC w/ Auto Diff Reviewed date:11/24/2024 01:59:39 PM Interpretation: Performing Lab: Notes/Report: Testing performed at: [address] [address] CLIA ID [id number] WBC 6.0 4.5-11.0 X10'3 RBC 3.67 4.00-5.20 X10'6 Hgb 10.0 12.0-16.0 G/DL Hct 32.6 36.0-46.0 % MCV 88.8 80.0-100.0 FL MCH 27.2 27.0-31.0 PG MCHC 30.7 31.0-37.0 G/DL Platelet 349 150-400 X10'3 RDW-SD 46.2 35.0-49.0 FL RDW-CV 14.4 12.2-15.6 % MPV 8.9 9.2-12.0 FL Neutro Auto% 55.1 40.0-70.0 % Lymph Auto% 28.8 22.0-44.0 % [place] Auto% 13.8 3.0-7.0 % Eos Auto% 1.7 2.0-4.0 % Baso Auto% 0.3 0.0-1.0 % Imm Gran% .3 .0-.4 % Neutro Abs 3.30 .80-7.70 Absolute Neutrophil Count 3300 Lymph Abs 1.73 .10-4.10 [place] Abs .83 .20-1.00 Eos Abs .10 .00-.40 Baso Abs .02 .00-.20 Imm Gran Abs .02 .00-.10 NRBC# .00 .00-.20 X10'3 NRBC% .00 .00-.20 /100 intact WBC's Basic Metabolic Panel Reviewed date:11/24/2024 01:59:52 PM Interpretation: Performing Lab: Notes/Report: Testing performed at [facility], [address] [place] [address] [place] [address]. CLIA ID#: [id number] G-asnpwa-s-benzoquinone imine (NAPQI) is a metabolite of acetaminophen, [...] Equation(2020) to estimate GFR. Testing performed at: [address] [place] [address] CLIA ID [id number] Use of this assay is not recommended for patients undergoing treatment with phenindione, due to the potential for falsely depressed results. Sodium 136 136-145 MMOL/L Potassium 4.2 3.5-5.1 MMOL/L Chloride 98 98-107 MMOL/L CO2 29.2 20.0-31.0 MMOL/L Glucose Serum 92 71-110 MG/DL BUN 15 7-21 MG/DL Creat .63 .51-1.17 MG/DL GFR 96.6 Anion Gap 13 5-15 BUN/Creat Ratio 23.8 12.0-20.0 % Calcium 9.5 8.7-10.4 MG/DL Osmo Serum,Calculated 282 280-300 MOSM/KG Urinalysis, Routine Reviewed date:11/23/2024 01:31:06 PM Interpretation: Performing Lab: Notes/Report: Urine-Color yellow Appearance clear Glucose - Bilirubin - Ketones - Specific [place] 1.005 Occult Blood - pH 7.0 Urine Protein - Urobilinogen,Semi-Qn - Nitrite, Urine - WBC Esterase - Reason For Referral No Information Medications Medication SIG (Take, Route, Frequency, Duration) Notes Start Date End Date Status Atorvastatin Calcium 80 MG 1 tablet Oral ly Once a day Active QUEtiapine Fumarate 100 MG 1 tablet at b edtime Orally Once a day Not-Taking Fluticasone Propionate 50 MCG/ACT 1 spray in each nostril Nasally Once a day Active Levothyroxine Sodium 50 MCG 1 tablet in the morning on an empty stomach Orally Once a day Active hydrALAZINE HCl 10 MG 1 tablet with food Orally 3 times a day Active Magnesium 300 MG 1 capsule with a riya l Orally Once a day Active Lisinopril 40 MG 1 tablet Orally Once a day Active HYDROcodone-Acetaminophen 5-325 MG 1 tablet as needed Orally every 6 hrs Active Cetirizine HCl 10 MG 1 tablet Orally Onc e a day Active Eliquis 2.5 MG 1 tablet Orally Twic e a day Active traZODone HCl 100 MG 1 tablet at bedtime Orally Once a day Not-Taking NIFEdipine 20 MG 1 capsule as needed Orally every 8 hrs Active Methocarbamol Active Fish Oil 500 MG as directed Orally Active Calcium 500 MG 1 tablet with meals Orally Twice a day Not-Taking Metoprolol Succinate 50 MG 1 capsule Ora lly Once a day Active ALPRAZolam 1 MG 1 tablet Orally Twic e a day Not-Taking Social History Tobacco Use: Social History Observation [...] last smoked? Grea ter than 10 years AUDIT-C (Standard) Question Answer Notes Did you have a drink containing alcohol in the p ast year? No Points 0 Interpretation Negative Problems Problem Type SNOMED Code ICD Code Onset Dates Problem Status W/U Status Risk Notes Problem Essential hypertension (50355788) Essential (primary) hypertension (I10) Active confirmed Problem Use of anticoagulation (057579299) Chronic anticoagulation (Z79.01) Active confirmed Problem Anxiety about health (257548633) Anxiety about health (F41.8) Active confirmed Problem Urinary frequency (230155958) Urinary frequency (R35.0) Active confirmed Problem Recurrent urinary tract infection (529416752) Recurrent UTI (N39.0) Active confirmed Problem Lesion of bladder (888835399) Lesion of bladder (N32.9) Active confirmed Problem History of urinary tract infection (5356776326830) History of UTI (Z87.440) Active confirmed Problem Overactive urinary bladder (disorder) (174638937) OAB (overactive bladder) (N32.81) Active confirmed Vital Signs Heart Rate 63 /min 11/23/2024 Blood pressure diastolic 64 mm Hg 11/23/2024 Height-cm 154.94 cm 11/23/2024 Weight-kg 61.24 kg 11/23/2024 Height 61 in 11/23/2024 Blood pressure systolic 138 mm Hg 11/23/2024 Weight 135 lbs 11/23/2024 BMI 25.51 kg/m2 11/23/2024 Procedures Procedure Date Ordered Date Performed Result Body Sit e Bladder Scan 11/23/2024 11/23/2024 0 mL Encounters Encounter Location Date Provider Diagnosis [facility] [address] [address] 11/23/2024 WHITNEY DIOP Urgency of urination R39.15 ; OAB (overactive bladder) N32.81 ; Frequency of urination R35.0 and Surgical counseling visit Z71.89 [facility] [address] [address] 11/23/2024 STEPHEN SARMIENTO Essential (primary) hypertension I10 and Preop testing Z01.818 [facility] [address] [address] 12/01/2024 STEPHEN SARMIENTO Assessments Encounter Date Diagnosis (ICD Code) Assessment Notes Treatment Notes Treatment Clinical Notes Section Notes 11/23/2024 Urgency of urination (ICD-10 - R39.15) 11/23/2024 Essential (primary) hypertension (ICD-10 - I10) 11/23/2024 Preop testing (ICD-10 - Z01.818) 11/23/2024 OAB (overactive bladder) (ICD-10 - N32.81) Pt with breakthrough refractory OAB symptoms >1 year after Botox. She would like to repeat. How procedure is performed was reviewed along with risks, benefits, alternatives, and postprocedural expectations. All questions were sought and answered to pt satisfaction and pt is agreeable to proceed. Will schedule next available. 11/23/2024 Frequency of urination (ICD-10 - R35.0) 11/23/2024 Surgical counseling visit (ICD-10 - Z71.89) Plan Of Treatment Pending Test Test Name Order Date CULTURE, URINE, ROUTINE (395) 07/28/2023 Basic Metabolic Panel 08/31/2023 CBC w/ Auto Diff 08/31/2023 UA Reflex -- [id number] 08/31/2023 Electrocardiogram, 12 Lead Tracing-[id number] 11/23/2024 Electrocardiogram, 12 Lead Tracing-[id number] 07/28/2023 Next Appt Details Provider Name:STEPHEN Wood, 12/13/2024 09:00:00 AM, [address] [place], [address], Insurance Providers Payer Name Payer Address Payer Phone Subscriber Number Group Number Insured Name Patient Relationship to Insured Coverage Start Date Coverage End Date [place] [address] [address] [place], [place] [id number] Trish Rocha Self - patient is the insured Formerly [facility] Medicare Supplement [address] [place] [id number] Trish Rocha Self - patient is the insured Medical (General) History Medical History History ICD Code hemorrhoids hypertension back trouble recurrent bladder infections arthritis Surgical History Surgery Date(Month/Year) X 3 tonsillectomy bilateral shouder replacements Hospitalization History Reason Date(Month/Year) rapid heart beat/afib 06/2023 High BP 09/2022 hospitalized for High bp 04/2022
--- OUTSIDE RECORDS SUMMARY | 2024-12-12 16:40 | XMS_ITS | Patient Health Record ---
Author Organization [facility] Address [address] [place] [address] Support Name Relationship Address Phone [facility] Emergency Contact Unknown RODRIGUEZ SWAN Guarantor Unknown [phone] Reason For Referral No Information Medications Medication SIG (Take, Route, Frequency, Duration) Notes Start Date End Date Status Lisinopril 20 MG Tablet Oral 12/26/2021 Active quetiapine 100 MG Oral Tablet ORAL [facility]* 12/26/2021 Active Spironolactone 25 MG Oral Tablet ORAL *[facility]* 12/26/2021 Active ALPRAZolam 1 MG Oral Tablet ORAL *[facility]* 12/26/2021 Active Chlorthalidone 25 MG Oral Tablet ORAL *[facility]* 12/26/2021 Active Carvedilol 25 MG Oral Tablet ORAL *[facility] Interaction [facility]* 12/26/2021 Active Simvastatin 20 MG Oral Tablet ORAL *[facility] Interaction [facility]* 12/26/2021 Active calcium carbonate 1250 MG / cholecalciferol 0.01 MG Oral Tablet ORAL *[facility] and Interaction Alert[facility]* 12/26/2021 Active Social History Social History Additional Details Category Social Info Options Details Migrated Social History Migrated Social History Smoking Status : Former tobacco user , History of tobacco use : Plan Of Treatment No Information Insurance Providers Payer Name Payer Address Payer Phone Subscriber Number Group Number Insured Name Patient Relationship to Insured Coverage Start Date Coverage End Date [place] Medicare [address] [place] [id number] RODRIGUEZ SWAN Self - patient is the insured
[2024-12-12] MEDS: LORazepam 1 MG/0.5 ML injection IVP (16:54)
[2024-12-12 16:56] LABS: ABG PCO2 39.0 mmHg (35-45); ABG PH Result 7.44 (7.35-7.45); Alveolar-Arterial Oxygen Gradi 1.4 mmHg (5-10); Arterial Blood Gas Hematocrit 33.3 % (37-47); Blood Gas Operator Identificat AMH; Blood Gas Sample Site Brachial, left; Blood Gas Sample Type Arterial; Carboxyhemoglobin 0.6 %THgb (0.4-20.1); Glucose Level-ABG 106.0 mg/dL (70-115); HCO3 ABG 26.3 mmol/L (22-26); Ionized Calcium Level - ABG 1.2 mmol/L (1.1-1.4); Methemoglobin 1.0 % (0.4-1.5); Oxygen Saturation ABG 97.8; PO2 ABG 90.3 mmHg (80.0-100.0); PO2 FiO2 Ratio Arterial Blood 430; Potassium Level - ABG 3.9 mmol/L (3.5-5.0); Sodium Level - ABG 136.0 mmol/L (131-143)
[2024-12-12 16:57] LABS: Hematocrit 34.1 % (36-47); Hemoglobin 10.80 g/dL (11.27-16.99); Mean Corpuscular HGB Conc 31.7 g/dL (30-55); Mean Corpuscular Hemoglobin 27.5 pg (27-33); Mean Corpuscular Volume 86.8 fl (85-98); Nucleated Red Blood Cells % 0 %; Platelet Count 352 10^3/cmm (157-399); Red Blood Count 3.93 10^6/uL (3.85-5.65); White Blood Count 7.91 10^3/uL (3.29-11.43)
[2024-12-12 17:14] LABS: INR 0.92 (0.8-1.2); Prothrombin Time 13.00 SECONDS (12.1-14.9)
[2024-12-12 17:15] LABS: Partial Thromboplastin Time 30.2 SECONDS (23.9-36.7)
[2024-12-12 17:46] LABS: Troponin(5th) Baseline 8 ng/L (0-10)
[2024-12-12 17:48] LABS: Aspartate Amino Transferase 17 U/L (0-32); Potassium 4.5 mmol/L (3.5-5.1)
[2024-12-12 17:56] LABS: Alanine Aminotransferase 8 U/L (0-33); Albumin Level 4.4 g/dL (3.5-5.2); Alkaline Phosphatase 67 U/L (35-105); Anion Gap 17.5 (5-19); Blood Urea Nitrogen 16 mg/dL (8-23); Calcium 9.2 mg/dL (8.5-10.5); Carbon Dioxide 23 mmol/L (22-29); Chloride 99 mmol/L (98-107); Creatinine Clr Calc Pharmacy 56.4974; Globulin 2.9 g/dL (1.3-4.6); Glucose 105 mg/dL (65-115); NT Pro B Type Natriuretic Pept 1327 pg/mL (0-125); Osmolality Calculated 282 mOsm/kg (285-295); Sodium 135 mmol/L (136-145); Total Protein 7.3 g/dL (6.6-8.7)
[2024-12-12 17:57] LABS: Add Urine Microscopic? NO
--- NOTE | 2024-12-12 17:59 | ECG_ITS ---
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 Measurements Intervals [place] Rate: 56 P: 54 CT: 155 QRS: 54 QRSD: 86 T: 43 QT: 462 QTc: 446 Interpretive Statements SINUS BRADYCARDIA DIFFUSE MILD ST ELEVATION, CONSIDER EARLY REPOLARIZATION, PERICARDITIS, OR INJURY Compared to ECG 12/12/2024 16:29:25 ST ELEVATION IS NEW Electronically Signed On 12-14-2024 23:09:45 CDT by Varinder Walters M.D. [email or web address]
[2024-12-12 18:02] LABS: Glucose Urine UA Negative (Normal); Nitrate Urine Negative (Negative); Specific Gravity, Urine 1.012 (1.005-1.030)
[2024-12-12 18:07] LABS: Charge for UA Resulting for Rev
[2024-12-12 18:09] LABS: PCP Screen Urine Negative (Negative)
[2024-12-12] MEDS: acetaminophen 1,000 MG/100 ML PIGGYBACK 400 MG IV (18:36)
[2024-12-12 19:02] VITALS: BP 150/80; PULSE 57; RESP 17; O2SAT 98
== END 2024-12-12 19:03 | disposition home or self-care (01) ==
PROVIDERS: Emergency Provider Emergency Medicine; PCP Family Medicine
DX: I10 Essential (primary) hypertension (principal); F41.0 Panic disorder [episodic paroxysmal anxiety]; I48.91 Unspecified atrial fibrillation; I50.30 Unspecified diastolic (congestive) heart failure; E78.00 Pure hypercholesterolemia, unspecified; I27.20 Pulmonary hypertension, unspecified; Z79.01 Long term (current) use of anticoagulants
CPT/HCPCS: 36416; 36600; 70450; 71045; 80051; 80053; 80306; 81003; 82330; 82805; 82962; 83880; 84484; 85025; 85610; 85730; 93005; 96374; 96375; 99285; J0131; J2060

== ENCOUNTER → 2025-02-07 14:58 | Outpatient (BNVA) | payer MEDICARE, OTHER, SELFPAY | PROVIDERS: PCP Family Medicine; Visit Provider Family Medicine | DX: N30.00 Acute cystitis without hematuria (principal) | CPT/HCPCS: 87086 ==